=== PATIENT | male | born 1950 | race Caucasian/White ===

== ENCOUNTER → 2023-07-03 07:50 | Outpatient (REF) | payer OTHER, SELFPAY | LOC: DHSLP 07:50 | PROVIDERS: ATTENDING PHYSICIAN Internal Medicine Critical Care Medicine; FAMILY PHYSICIAN Internal Medicine | DX: G47.33 Obstructive sleep apnea (adult) (pediatric) (principal) | CPT/HCPCS: 95800 ==

== ENCOUNTER → 2024-01-03 08:04 | Outpatient (REF) | payer OTHER, SELFPAY | LOC: RAD 08:04 | PROVIDERS: FAMILY PHYSICIAN Internal Medicine | DX: G89.29 Other chronic pain (principal) | CPT/HCPCS: 76882 ==

== ENCOUNTER 2024-01-20 14:40 | Inpatient (IN) | payer OTHER, SELFPAY ==
[2024-01-20] VITALS (14 sets, daily range): BP systolic 108–127; BP diastolic 68–77; BMI 34.5; BMI 34.1
--- NOTE | 2024-01-20 10:39 | EDRN ---
the pt is currently on 6L NC sp02 96%, Dr. Bajwa wants the pt on Midflow, this RN tiger texted respiratory and notified them, will continue to monitor the pt closely
--- NOTE | 2024-01-20 10:40 | EDRN ---
per respiratory the pt does not need Midflow, this was communicated with Dr. Bajwa, will hold off on midflow for now, the pt is currently still on 6L NC, 96%, will continue to monitor the pt closely
[2024-01-20 10:51] LABS: ALT (SGPT) 31 U/L (0-50); AST (SGOT) 40 U/L (17-59); Albumin 3.7 g/dl (3.5-5.0); Alkaline Phosphatase 58 U/L (38-126); Blood Urea Nitrogen 21 mg/dl (9-20); Calcium 8.4 mg/dl (8.4-10.2); Carbon Dioxide 26 mmol/L (22-30); Chloride 102 mmol/L (98-107); Estimated Creatinine Clearance 57 ml/min; Glucose 107 mg/dl (70-99); Potassium 4.4 mmol/L (3.5-5.1); Sodium 136 mmol/L (135-145); Total Bilirubin 1.4 mg/dl (0.2-1.3); Total Protein 6.1 g/dl (6.3-8.2)
[2024-01-20 10:55] LABS: % Basophils 0.2 % (0-2); % Eosinophils 1.5 % (0-6); % Immature Granulocytes 1.4 % (0-0.5); % Lymphocytes 5.4 % (20.5-51.1); % Neutrophils 89.5 % (42.2-75.2); Absolute Eosinophils 0.1 10^3/uL (0-0.7); Absolute Immature Granulocytes 0.1 10^3/uL (0-0.05); Absolute Lymphocytes 0.5 10^3/uL (1.2-3.4); Absolute Monocytes 0.2 10^3/uL (0.1-0.6); Absolute Neutrophils 8.4 10^3/uL (1.4-6.5); Hematocrit 38.6 % (39.0-52.0); Hemoglobin 13.2 g/dL (13.0-18.0); Mean Corp Hgb Conc. 34.2 g/dL (33.0-37.0); Mean Corpuscular Volume 90.6 fL (80.0-94.0); Mean Platelet Volume 11.7 fL (7.4-10.4); Nucleated Red Blood Cells % 0 % (-); Platelet Count 132 10^3/uL (130-400); Red Blood Cell Count 4.26 10^6/uL (4.70-6.10); White Blood Cell Count 9.3 10^3/uL (4.8-10.8)
[2024-01-20 11:02] LABS: NT-proBNP 259 pg/ml; Troponin I 0.043 ng/ml
[2024-01-20 11:06] LABS: COVID-19 Antigen Positive (Negative)
--- NOTE | 2024-01-20 12:32 | ED.GENMED ---
History of Present Illness
General
Chief Complaint: Breathing Problem
Source: patient
Exam Limitations: none
Time Seen by Provider: 01/20/24 10:21
Nursing documentation reviewed up to this point in time: agreed with
History of Present Illness
History of Present Illness:
Patient presents to ED secondary to 10-day history of persistent cough, shortness of breath, and fatigue. Upon arrival, patient found to be febrile with hypoxia. Denies nausea, vomiting, or diarrhea. Denies rash. Denies headache. Denies loss of
appetite. Patient's spouse has had similar symptoms, but has improved. Of note, his symptoms started while he was vacationing in [place].
Past History
Past History
ED Past Medical History: Arrthythmia (Paroxysmal atrial fibrillation), Cancer (Basal cell skin cancer), CHF, COPD, GERD, HTN, Hypercholesterolemia and Other (Sarcoidosis, PE)
ED Past Surgical History: Orthopedic (Left knee); Negative Cardiac (Cardiac catheterization December 2014, nonocclusive CAD)
Social History
Tobacco: Former smoker
Alcohol: Daily
Drug: None
Personal:
Living: with family
Employment: Retired
Family History
Family History: Hypertension
Review of Systems
Review of Systems
Allergies reviewed?: Yes
All Other Systems: ROS reviewed and negative except as documented in HPI and ROS
Constitutional: Reports no symptoms
EENT: Reports no symptoms
Respiratory: Reports cough and trouble breathing
Cardiac: Reports no symptoms
ABD/GI: Reports no symptoms; Denies vomiting or diarrhea
Musculoskeletal: Reports no symptoms
Skin: Reports no symptoms
Neurological: Reports no symptoms
Phy Exam
Physical Exam
Physical Exam:
Physical Exam
General: mild distress, not acutely ill. febrile
Head: nc/at. eomi
Neck: supple. no meningeal signs.
Heart: s1/s2 regular rate and rhythm, no murmur. equal radial pulses.
Lungs: mild respiratory distress. diminished breath sounds bilaterally
Abdomen: normal bowel sounds. not tender.
Neuro: alert and oriented. no focal neurological deficits
Skin: no rash
Psychiatric: well kept. interactive and cooperative
Extremities: no edema. no calf tenderness.
Scores
Heart Failure Risk
Heart Failure Risk Score: Not Applicable
Course
Orders/Labs/Results
Orders:
Orders
01/20/24 10:14
Electrocardiogram (*1) Urgent
Reason for Study: Shortness of Breath
01/20/24 10:15
EKG- Treatment ONCE
01/20/24 10:21
Complete Blood Count/With Diff Urgent
Comprehensive Metabolic Panel Urgent
NT-proBNP Urgent
Troponin I Urgent
01/20/24 10:35
COVID-19 Antigen Urgent
Source: Nasal Swab
CR Chest Portable - 1 View Urgent
Comment:
Reason For Exam: sob/hypoxia
Reason Study Needs to be Portable: Patient Unstable
01/20/24 12:30
Add On- LAB Urgent
Tests Added?: Procalcitonin
01/20/24 12:44
Dexamethasone Pf [Decadron] 10 mg .ROUTE .STK-MED ONE
01/20/24 12:49
Dexamethasone Sod Phosphate [Decadron] 6 mg IV NOW STA
01/20/24 12:52
Procalcitonin Routine
Comment: NEEDS TO BE COLLEDTED
01/20/24 14:15
Admit/Transfer Patient As Directed
Co-Sign Provider:
Level of Care: Inpatient admission
Assign to:: Telemetry
Physician / Group: lamont mazariegos
Diagnosis: hypoxic resp failure 2/2 covid 19, bart/volume depletion
Reason for Telemetry: Arrhythmia
Date to Stop Telemetry: 01/23/24
Time to Stop Telemetry: 11:00
Reason for Hospitalization: hypoxic resp failure 2/2 covid 19, bart/volume depletion
Expected length of stay greater than two midnights?: Yes
ELOS- Estimated Length of Stay in days: 5
I certify the patient meets the requirements for IP care: Yes
Code Status As Directed
Resuscitation Status: Full Code
01/20/24 14:32
PULMONARY CONSULT Routine
Consulting Provider: Matt Segovia
Was physician already notified: Yes
Reason for consult: covid, hx copd sarcoidosis
01/20/24 Dinner
Cholesterol Lowering
At Your Request: Limited, Velvet Steamer Required
Does patient need a safe tray?: No
Cholesterol Lowering: Sodium, 2 Gram
Azithromycin 500 mg/250 ml [Zithromax Infusion] 500 mg in 250 ml IV Q24H
CefTRIAXone [Rocephin] 1,000 mg IV Q24H
01/20/24 15:06
Venous Blood Gas Urgent
%Oxygen/Room Air: 6 liters
01/20/24 16:39
Electrocardiogram (*1) Q6H
Reason for Study: Abnormal EKG
Comment: to be done with each troponin
0.9% Sodium Chloride 1000 ml [Nss] 1,000 ml IV 60 mls/hr
Acetaminophen [Tylenol] 650 mg PO Q4HPRN PRN
Albuterol [ProAIR HFA INHALER] 2 puff INH R Q4HPRN PRN
01/20/24 16:39
VTE Contraindication Routine
VTE Mechanical Device Contraindication: Medical Contraindication
Pharmocologic Contraindication: Medical Contraindication
Comment: pt on xarelto
Activity As Directed
Activity Level: Out of Bed-Early Mobility
Intake/ Output As Directed
Frequency: Per unit guidelines
Precautions As Directed
Type of Precautions: Droplet
Contact
Vital Signs As Directed
Frequency: Per unit guidelines
Weight As Directed
Frequency: Once
Comment: on admission
O2 Therapy [RESP] Routine
Nasal Cannula Liter Flow: 6 LPM
Titrate/Wean O2 to maintain O2 sat greater than (%): 92
Special Instructions: nasal cannula oxygen to maintain O2 saturation as noted above. then wean as tolerated.
Do NOT humidify nasal cannula O2
Pulse Ox/cont/shift [RESP] Routine
Quantity: 1
Special Instructions: continuous pulse oximetry
Ot Eval And Treat Routine
Pt Eval And Treat Routine
Activity Level: With Assistance
01/20/24 16:52
Troponin I Q6H
Comment: obtain ECG with each troponin
01/20/24 17:04
Artificial Tears (Pf) [Refresh Eye Drops (Pf)] 1 drops BOTH EYES Q6HPRN PRN
01/20/24 20:00
Carvedilol [Coreg] 6.25 mg PO BID
Sacubitril 24/Valsartan 26 [Entresto 24 mg/26 mg] 1 tab PO BID
01/20/24 22:00
Rivaroxaban [Xarelto] 20 mg PO HS
01/21/24 00:00
Dexamethasone Sod Phosphate [Decadron] 6 mg IV Q12H
01/21/24 06:00
Cardiovascular Evaluation IN AM
Complete Blood Count/With Diff IN AM
Comprehensive Metabolic Panel IN AM
01/21/24 08:00
Amiodarone [Pacerone] 200 mg PO DAILY
Atorvastatin [Lipitor] 10 mg PO DAILY
Empagliflozin [Jardiance] 10 mg PO DAILY
Multivitamin [Theragran] 1 tablet PO DAILY
Vitamin B Complex with C [B COMPLEX w/VITAMIN C] 1 caplet PO DAILY
01/22/24 06:00
Complete Blood Count/With Diff IN AM
Comprehensive Metabolic Panel IN AM
01/23/24 06:00
Complete Blood Count/With Diff IN AM
Comprehensive Metabolic Panel IN AM
01/23/24 11:00
DC Protocol for Telemetry ONCE
01/24/24 06:00
Complete Blood Count/With Diff IN AM
Comprehensive Metabolic Panel IN AM
Abnormal Lab Results
01/20/24 01/20/24 01/20/24
10:21 10:35 12:52
RBC 4.26 L 10^6/uL
(4.70-6.10)
Hct 38.6 L %
(39.0-52.0)
RDW 16.0 H %
(11.5-14.5)
MPV 11.7 H fL
(7.4-10.4)
Abs Immat Gran (auto) 0.1 H 10^3/uL
(0-0.05)
Absolute Neuts (auto) 8.4 H 10^3/uL
(1.4-6.5)
Absolute Lymphs (auto) 0.5 L 10^3/uL
(1.2-3.4)
Immature Gran % 1.4 H %
(0-0.5)
Neutrophils % 89.5 H %
(42.2-75.2)
Lymphocytes % 5.4 L %
(20.5-51.1)
BUN 21 H mg/dl
(9-20)
Creatinine 1.4 H mg/dL
(0.7-1.3)
Glucose 107 H mg/dl
(70-99)
Total Bilirubin 1.4 H mg/dl
(0.2-1.3)
Troponin I 0.043 H* ng/ml
Total Protein 6.1 L g/dl
(6.3-8.2)
Procalcitonin 0.69 H ng/ml
(0.0-0.25)
SARS-CoV-2 Antigen Positive A
(Negative)
01/20/24 10:21
01/20/24 10:21
Vital Signs
Initial and Last Documented VS:
Initial Vital Signs
Temp Pulse Resp BP Pulse Ox
101.2 F H 77 18 108/72 85
01/20/24 10:02 01/20/24 10:02 01/20/24 10:02 01/20/24 10:02 01/20/24 10:02
Last Documented Vital Signs
Temp Pulse Resp BP Pulse Ox
98.5 F 75 20 122/68 93
01/20/24 16:54 01/20/24 16:54 01/20/24 16:54 01/20/24 16:54 01/20/24 16:54
MDM/Problems Addressed
MDM/Problems Addressed:
Patient with hypoxia, likely secondary to COVID infection. Chest x-ray suggestive of bilateral pneumonia, likely viral. Procalcitonin pending.
Initial hypoxia improved with 6 L of oxygen via nasal cannula.
*Critical Care Note
Total Time (30-74mins, 75-104mins- exclusive of procedures): Not Applicable
ED Attending Note
-
Portions of this chart may have been created with voice recognition software.� Occasional wrong word or��sound alike� substitutions may have occurred due to the inherent limitations of voice recognition software.
Discharge Plan
Departure
Patient Disposition: Admit
Date of Disposition: 01/20/24
Time of Disposition: 12:36
Admit to: Telemetry
Presentation/result/management discussed w/ accepting MD/DO: Hospitalist
Discharge Problem:
Hypoxia, COVID-19
Interventions
Interventions:
*Risk Screen - Suicide Last Done: 01/20/24 10:02
*General Assessment Last Done: 01/20/24 10:02
*Neglect/Abuse Screening Last Done: 01/20/24 10:02
ED- Fall Risk Assessment Last Done: 01/20/24 10:23
*ED COVID-19 Vaccine History Last Done: 01/20/24 10:02
*Nursing Disposition Last Done: 01/20/24 16:31
ED- Cardiac Assessment Last Done: 01/20/24 10:23
ED- Pulmonary Assessment Last Done: 01/20/24 10:23
Discharge Date and Time
Discharge Date/Time: 01/20/24 16:31
[2024-01-20] MEDS: DECADRON 6 MG IV ×2 (12:52→23:00)
--- NOTE | 2024-01-20 13:39 | HPS.HSE ---
Family Physician
-
Family Physician: Doyle Avila
Chief Complaint
-
Hypoxia, cough, shortness breath, sore throat, runny nose, fatigue, fever
History of Present Illness
73-year-old male complaining of 11-12-day history of cough, shortness of breath, sore throat, and runny nose fatigue. He reports he flew to [place] on 01/06/2024 got back on 01/19/2024 he feels at least 2 to 3 days into his trip he started with a sore
throat that progressed to cough, wheezing and shortness of breath. He was not seen in any hospital or clinic while abroad. When at home he has felt worse with increased shortness of breath and wheezing. He is on chronic prednisone 40 mg for
cardiac and pulmonary sarcoidosis. He does not normally require oxygen. He was noted to be febrile 101.2F and hypoxic 85% on room air on arrival in the ER. He is currently requiring 6 L nasal cannula with O2 sat of 93%. He denies headache, chest
pain, palpitations, abdominal pain, nausea, vomiting, diarrhea, urinary symptoms.
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
April 2023, GERD, HLD, nonocclusive CAD December 2014 cardiac cath, basal cell skin CA, daily alcohol use
Medical History
Past Medical History
Past Medical History: Reports CAD (Nonocclusive coronary artery disease by catheterization on 01/12/2015. ), CHF, COPD, HTN, Hypercholesterolemia and Other
Additional Past Medical History:
COPD
former smoker
sarcoidosis
DVT/PE-patient on Xarelto
daily alcohol use
Paroxysmal A-fib
HTN
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
CHF/ nonischemic cardiomyopathy, EF 35-40% April 2023
nonocclusive CAD December 2014 cardiac cath
Mitral regurgitation, moderate to severe by echo in 12/2014.
GERD
HLD
basal cell skin CA
OA right knee
Past Surgical History: Reports Orthopedic (Right knee arthroscopy, partial medial meniscectomy, medial femoral chondroplasty.) and Other (Mediastinoscopy)
Social History
Tobacco: Former Smoker (quit 2014)
Alcohol: Daily (Patient reports he drinks 1 shot of whiskey 4 times a week)
Drug: None
Personal:
Living: With Family ()
Employment: Retired
Family History
Family History: Other (father-pacemaker/arryhthmia )
Allergies / Home Medications
Allergies reflects when Allergies were last updated in [facility].
Home Medications with original date entered in [facility]
Allergy/Medication List:
Allergies
Allergy/AdvReac Type Severity Reaction Status Date / Time
No Known Allergies Allergy Verified 01/20/24 10:07
Home Medications
carvedilol 6.25 mg tablet 6.25 mg PO BID ##60 01/14/15
atorvastatin 10 mg tablet 10 mg PO DAILY High Cholesterol 04/24/23
rivaroxaban 20 mg tablet (Xarelto) 20 mg PO HS Blood Clot Prevention/Tx 04/24/23
vitamin B complex 1 tab PO DAILY Supplement 04/24/23
empagliflozin 10 mg tablet (Jardiance) 10 mg PO DAILY HF #30 tabs 04/27/23
aflibercept 8 mg/0.07 mL intravitreal solution for injection (Eylea HD) 8 mg intravitreal Q4W 01/20/24
amiodarone 200 mg tablet (Pacerone) 200 mg PO DAILY VTach 01/20/24
peg 400-propylene glycol (PF) 0.4 %-0.3 % eye drops in a dropperette (Systane (PF)) 1 drp BOTH EYES Q6HPRN PRN dry eyes 01/20/24
prednisone 10 mg tablet 40 mg PO DAILY 01/20/24
sacubitril 24 mg-valsartan 26 mg tablet (Entresto) 1 tab PO BID 01/20/24
spironolactone 25 mg tablet 12.5 mg PO DAILY 01/20/24
sulfamethoxazole 400 mg-trimethoprim 80 mg tablet (Bactrim) 1 tab PO DAILY 01/20/24
therapeutic multivitamin 1 tab PO DAILY 01/20/24
Review of Systems
-
History Source: Patient and Family ( at bedside)
A 12 point ROS was completed and negative except as noted: Yes
Constitutional: Reports Fever and Fatigue; Denies Chills
EENT: Reports Sore Throat; Denies Runny Nose
Respiratory: Reports Cough and Trouble Breathing (Wheezing)
Cardiac: Denies Chest Pain, Diaphoresis, Palpitations or Syncope
Abdomen/GI: Denies Abdominal Pain, Nausea, Vomiting, Diarrhea, Constipated, Bloody Stools or Black Stools
: Denies Dysuria, Frequency, Flank Pain, Incontinence, Difficulty Voiding or Urgency
Musculoskeletal: Denies Joint Pain or Edema
Skin: Denies Itching or Rash
Neurological: Denies Dizzy, Headache or Weakness
Endocrine: Reports No Symptoms
Hematologic/Lymphatic: Reports No Symptoms
Psych: Reports Calm
Physical Exam
Vital Signs
Vital Signs
Temp Pulse Resp BP Pulse Ox
98.2 F 72 25 113/74 93
01/20/24 12:36 01/20/24 12:36 01/20/24 12:36 01/20/24 12:36 01/20/24 12:36
Physical Exam
General: Comfortable, Conversant, Fever and Chills; No Pain
HEENT: NormoCephalic, Anicteric, PERRLA, No Ptosis, Neck Nontender and Oxygen (6 L nasal cannula)
Respiratory: Wheezes (Scattered throughout both lung floyd); No Rales or Rhonchi
Cardiac: S1/S2 and Regular Rhythm; No Murmur, Rub, Gallop or Peripheral Edema
Breast: Deferred by me
GI: Soft, Non Tender, Non Distended, Normal Bowel Sounds and No Hepatosplenomegaly
Rectal: Deferred by Provider
Genito-urinary: Deferred by me
Musculoskeletal: No Clubbing, No Cyanosis and No Edema
Skin: Warm and Dry; No Rash or Jaundice
Neuro: AO x 3, No Motor Deficits, Nonfocal/grossly intact, Cranial Nerves Intact and No Sensory Deficits; No Slurred Speech, Facial Droop or Tremors
Psych: Calm
Laboratory Results
-
01/20/24 10:21
01/20/24 10:21
Laboratory Results
Total Bilirubin 1.4 mg/dl (0.2-1.3) H 01/20/24 10:21
AST 40 U/L (17-59) 01/20/24 10:21
ALT 31 U/L (0-50) 01/20/24 10:21
Alkaline Phosphatase 58 U/L (38-126) 01/20/24 10:21
Troponin I 0.043 ng/ml H* 01/20/24 10:21
Impression/Plan
-
Impression/plan:
Admit to Telemetry
#Acute hypoxic respiratory failure 2/2 COVID-19 infection in steroid-dependent patient with hx Sarcoidosis with concern for underlying Bibasilar pneumonia
#Hx pulmonary sarcoidosis/cardiac sarcoidosis
Patient with 11-12-day symptoms of shortness of breath, cough and fatigue,Fever
85% Ra, 93% 6 liters , temp 101.2F
COVID-positive in the ER
Pro-Aldo 0.69-given elevation will cover for possible underlying pneumonia
-Not remdesivir candidate
-Will give IV Decadron 6 mg q12 -patient takes 40 mg prednisone daily chronic since April 2023
-Iv Rocephin, zithromax
- check VBG on current 6 liters
- tylenol as needed fever
-Consult Pulmonary
CXR: Bibasilar pneumonia
#COPD Hx history steroid dependence
#Former smoker quit 2014
#Sarcoidosis hx pulmonary/cardiac
-Patient takes 40 mg prednisone daily since April 2023
-Patient on chronic Bactrim 1 tab daily prophylaxis will hold as we are giving Rocephin and Zithromax
#EMEKA likely secondary to febrile illness/diuretics
Creat 1.4 baseline appears 1.1
-IV NSS 60 cc an hour x 1 L
- follow BMP
#Acute on Chronic troponin elevation
-No current chest pain
-Troponin 0.043 will trend prior as high as 0.159 04/25/2023
#ICD implant April 27, 2023-[employer]
#nonischemic cardiomyopathy, EF 35-40% April 2023
#Chronic diastolic CHF
-I/O, daily weights
-HOLD spironolactone 12.5 mg daily due to EMEKA
-cont Entresto 1 tab twice daily, Jardiance 10 mg daily
#Prior Daily alcohol use
-Patient used to drink 4 martinis a day April 2023
-Now drinks 1 shot of whiskey 4 days a week last drink was 01/16/2024
#DVT/PE hx 2014 provoked after prolonged hospital stay
-patient on Xarelto
#HTN-benign
bp 113/74
-Continue carvedilol 6.25 mg twice daily
#Paroxysmal A-fib
-Continue Xarelto 20 mg at bedtime, amiodarone 200 mg daily, carvedilol 6.25 mg twice daily with hold parameters
#Monomorphic VT required cardioversion X 1 April 26, 2023
-Continue amiodarone 200 mg daily
#Nonocclusive CAD December 2014 cardiac cath
#Mitral regurgitation, moderate to severe by echo in 12/2014
#GERD
-No PPI listed
# HLD
-Continue atorvastatin 10 mg daily
#Obesity due to excess calorie consumption�BMI 34.5
-Affects all aspects of care
-Weight loss recommended, low-fat diet
Other PMH:
Basal cell skin CA
OA right knee
DVT prophylaxis
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
Full code
[2024-01-20 13:45] LABS: Procalcitonin 0.69 ng/ml (0.0-0.25)
[2024-01-20] MEDS: ROCEPHIN 1000 MG IV (15:00)
[2024-01-20] MEDS: ZITHROMAX INFUSION 250 IV (15:00)
[2024-01-20] MEDS: STERILE WATER FOR INJECTION 10 ML IV (15:00)
[2024-01-20 15:13] LABS: Venous Blood Gas B.E. -2.9 mmol/L (-4 to +4); Venous Blood Gas pCO2 38 mmHg (35-48); Venous Blood Gas pH 7.37 (7.32-7.43); Venous Blood Gas pO2 57 mmHg (30-50)
[2024-01-20 17:26] LABS: Troponin I 0.034 ng/ml
[2024-01-20] MEDS: NSS 1000 IV (17:42)
--- NOTE | 2024-01-20 18:19 | PTCARENOTE ---
received pt from ED via stretcher, able to walk from stretcher to bathroom then to bed, SOB on exertion, at bedside, vitals charted, oriented to his room. plan of care on going.
[2024-01-20] MEDS: ROBITUSSIN DM 5 ML PO (19:48)
[2024-01-20] MEDS: COREG 6.25 MG PO (19:49)
[2024-01-20] MEDS: SPIRIVA RESPIMAT 2.5 MCG 2 PUFF INH (19:49)
[2024-01-20] MEDS: ENTRESTO 24 MG/26 MG 1 TAB PO (19:49)
[2024-01-20] MEDS: ProAIR HFA INHALER 2 PUFF INH (19:50)
[2024-01-20] MEDS: XARELTO 20 MG PO (21:12)
[2024-01-21] VITALS (8 sets, daily range): BP systolic 106–130; BP diastolic 59–77; PULSE 64–99; O2SAT 92–97; BMI 33.9
[2024-01-21] MEDS: ROBITUSSIN DM 5 ML PO (03:15)
[2024-01-21 05:26] LABS: % Basophils 0.1 % (0-2); % Immature Granulocytes 1.5 % (0-0.5); % Monocytes 1.5 % (1.7-9.3); % Neutrophils 92.9 % (42.2-75.2); Absolute Immature Granulocytes 0.1 10^3/uL (0-0.05); Absolute Lymphocytes 0.3 10^3/uL (1.2-3.4); Absolute Monocytes 0.1 10^3/uL (0.1-0.6); Absolute Neutrophils 6.7 10^3/uL (1.4-6.5); Hematocrit 36.3 % (39.0-52.0); Hemoglobin 12.4 g/dL (13.0-18.0); Mean Corp Hgb Conc. 34.2 g/dL (33.0-37.0); Mean Corpuscular Hgb 30.7 pg (27.0-31.0); Mean Corpuscular Volume 89.9 fL (80.0-94.0); Mean Platelet Volume 11.6 fL (7.4-10.4); Nucleated Red Blood Cells % 0 % (-); Platelet Count 143 10^3/uL (130-400); Red Blood Cell Count 4.04 10^6/uL (4.70-6.10); Red Cell Dist. Width 15.9 % (11.5-14.5); White Blood Cell Count 7.3 10^3/uL (4.8-10.8)
[2024-01-21 05:41] LABS: ALT (SGPT) 28 U/L (0-50); AST (SGOT) 32 U/L (17-59); Albumin 3.3 g/dl (3.5-5.0); Alkaline Phosphatase 57 U/L (38-126); Blood Urea Nitrogen 25 mg/dl (9-20); Calcium 8.2 mg/dl (8.4-10.2); Carbon Dioxide 22 mmol/L (22-30); Chloride 108 mmol/L (98-107); Estimated Creatinine Clearance 72 ml/min; Glucose 159 mg/dl (70-99); HDL Cholesterol 54 mg/dl; LDL Cholesterol, Calculated 111 mg/dl; Potassium 4.4 mmol/L (3.5-5.1); Sodium 137 mmol/L (135-145); Total Bilirubin 0.9 mg/dl (0.2-1.3); Total Cholesterol 182 mg/dl (50-199); Total Protein 5.7 g/dl (6.3-8.2); Triglyceride 87 mg/dl (10-149); Very Low Density Lipoprotein 17 mg/dl (0-30); eGFR > 60.00
[2024-01-21] MEDS: ProAIR HFA INHALER 2 PUFF INH ×4 (07:28→20:58)
[2024-01-21] MEDS: SPIRIVA RESPIMAT 2.5 MCG 2 PUFF INH (07:29)
[2024-01-21] MEDS: ENTRESTO 24 MG/26 MG 1 TAB PO ×2 (08:53→19:48)
[2024-01-21] MEDS: B COMPLEX w/VITAMIN C 1 CAPLET PO (08:53)
[2024-01-21] MEDS: PACERONE 200 MG PO (08:54)
[2024-01-21] MEDS: JARDIANCE 10 MG PO (08:54)
[2024-01-21] MEDS: COREG 6.25 MG PO ×2 (08:54→19:48)
[2024-01-21] MEDS: THERAGRAN 1 TABLET PO (08:54)
[2024-01-21] MEDS: LIPITOR 10 MG PO (08:54)
--- NOTE | 2024-01-21 09:17 | CON.PUL ---
Consultation
Consultation Request
Date/Time Consultation Requested: 01/21/2024-8 AM
Date/Time Consultation Performed: 01/21/2024-10 AM
Requesting Provider: Hospitalist
Performing Provider: Dr. Segovia
Reason for Consultation: Pneumonia/shortness of breath
Medical History
-
Chief Complaint: Shortness of breath
History of Present Illness:
73-year-old male with history of COPD, sarcoidosis, NITA, CAD, nonischemic cardiomyopathy and arrhythmias who recently returned from extensive trip to [place] complaining of 12-day history of cough, shortness of breath, sore throat and runny nose last
received booster Februaryovid (5 shots total) noted to have pneumonia, covid positive and pulmonary consulted for hypoxemia/pneumonia/ covid 01/21/2024. He is feeling somewhat improved on oxygen. He still has some chest congestion, mostly
nonproductive cough and denies shortness of breath at rest but has dyspnea on exertion. Denies any chest pain, mopped assist, productive cough, abdominal pain, nausea, vomiting, weakness, or increased lower extremity swelling.
Past Medical History
Past Medical History: None (COPD. NITA. Obesity. Former smoker quit 2014. Sarcoidosis-cardiac. Hypertension. Hyperlipidemia. 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 PAF. 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 Nonischemic CM-EF 35%/ICD. Diastolic
CHF. CAD-nonocclusive 2014. Moderate MR. GERD. Basal cell skin CA.)
Past Surgical History: None (Left knee arthroscopy 2010. Mediastinal Skippy. Right knee surgery 2017. Basal cell left ear 2020. Cataract 2021. Melanoma right wrist 2023)
Social History
Tobacco: Former Smoker ([id number] quit 2014)
Alcohol: Daily (1 shot whiskey 4 times weekly)
Drug: None
Personal:
Living: With Family
Occupational Exposures: No known asbestos exposure
Environmental Exposures: No known tuberculosis exposure
Family History
Family History: Other (Father-prostate cancer, bladder cancer and CAD. Mother-hypertension.)
Allergies / Home Medications
Allergies
Allergy/AdvReac Type Severity Reaction Status Date / Time
No Known Allergies Allergy Verified 01/20/24 10:07
Home Medications
�Medication �Instructions �Recorded �Confirmed �Last Taken �Type
carvedilol 6.25 mg tablet 6.25 mg PO BID ##60 01/14/15 01/20/24 01/20/24 Rx
atorvastatin 10 mg tablet 10 mg PO DAILY High Cholesterol 04/24/23 01/20/24 01/20/24 History
rivaroxaban 20 mg tablet (Xarelto) 20 mg PO HS Blood Clot 04/24/23 01/20/24 01/19/24 History
Prevention/Tx
vitamin B complex 1 tab PO DAILY Supplement 04/24/23 01/20/24 01/20/24 History
empagliflozin 10 mg tablet 10 mg PO DAILY HF #30 tabs 04/27/23 01/20/24 01/20/24 Rx
(Jardiance)
aflibercept 8 mg/0.07 mL 8 mg intravitreal Q4W Eye Condition 01/20/24 01/20/24 01/02/24 History
intravitreal solution for
injection (E[facility])
amiodarone 200 mg tablet (Pacerone) 200 mg PO DAILY VTach 01/20/24 01/20/24 01/20/24 History
peg 400-propylene glycol (PF) 0.4 1 drp BOTH EYES Q6HPRN PRN dry eyes 01/20/24 01/20/24 Unknown History
%-0.3 % eye drops in a dropperette
(Systane (PF))
prednisone 10 mg tablet 40 mg PO DAILY Anti-Inflammatory 01/20/24 01/20/24 01/20/24 History
sacubitril 24 mg-valsartan 26 mg 1 tab PO BID Heart Failure 01/20/24 01/20/24 01/20/24 History
tablet (Entresto)
spironolactone 25 mg tablet 12.5 mg PO DAILY Blood Pressure 07/01/20/24 01/19/24 History
sulfamethoxazole 400 1 tab PO DAILY Infection 01/20/24 01/20/24 01/20/24 History
mg-trimethoprim 80 mg tablet
(Bactrim)
therapeutic multivitamin 1 tab PO DAILY Supplement 01/20/24 01/20/24 01/20/24 History
Review of Systems
-
Unable to Obtain full review of systems at this time due to: Other (Per HPI)
Vitals / Labs / Diagnostic Testing
Vital Signs
Temp Pulse Resp BP Pulse Ox
97.9 F 63 18 123/68 91
01/21/24 07:58 01/21/24 07:58 01/21/24 07:58 01/21/24 07:58 01/21/24 07:58
Lab Data
01/21/24 04:50
01/21/24 04:50
Diagnostic Testing:
Physical Exam
-
Exam:
Well-nourished and well-developed in no apparent distress
HEENT-atraumatic, normocephalic, thick neck
Neck-supple, no JVD, no bruit
Heart-regular rate and rhythm-no murmurs, rubs or gallops
Chest with crackles at both bases, few rhonchi, and no wheezes
Abdomen-soft, nontender, nondistended, no hepatosplenomegaly
Extremities-no cyanosis, clubbing, edema and good peripheral pulses
Integument-intact, no rashes, lesions or ecchymosis
Neurology-alert and oriented, nonfocal motor and sensory exam
Assessment
-
73-year-old male with history of COPD, sarcoidosis, NITA, CAD, nonischemic cardiomyopathy and arrhythmias who recently returned from extensive trip to [place] complaining of 12-day history of cough, shortness of breath, sore throat and runny nose last
received booster Februaryovid (5 shots total) noted to have pneumonia, covid positive and pulmonary consulted for hypoxemia/pneumonia/ covid 01/21/2024.
Respiratory failure-acute hypoxemic due to community-acquired pneumonia
Covid positive-symptom onset nearly 2 weeks [employer]
Community-acquired pneumonia
COPD with mild acute exacerbation
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
Troponin elevation-0.043
Mild uhtviu-ghlszvhllx-yhjazbwotq 12.4
Hyperglycemia
Conditions present prior to admission:
COPD.
Former smoker quit 2014.
Pulmonary nodule-2 mm right upper lobe stable 2022
NITA.
Obesity.
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
Hypertension.
Hyperlipidemia.
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
PAF.
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
Chronic amiodarone-100 mg daily
Nonischemic CM-EF 35%/ICD.
Diastolic CHF.
CAD-nonocclusive 2014.
Moderate MR.
GERD.
Basal cell skin CA.
Left knee arthroscopy 2010. Mediastinal Skippy. Right knee surgery 2017. Basal cell left ear 2020. Cataract 2021. Melanoma right wrist 2023
Plan
Respiratory decompensation related to oqxxjjifq-eaiehayrn-fzuuhdgw-recent travel history and minor contributions from underlying COPD and covid infection in this patient who has had 5 previous vaccinations though he is immunocompromised on chronic
prednisone which puts him at risk for covid complications
Chest radiographs, CT chest, PET scan, echocardiogram, cardiac MRI, sleep study, and pulmonary functions are summarized below
Supplemental oxygen as needed-currently on 6 L-not on home oxygen
Assess discharge supplemental oxygen needs
Incentive spirometry
Acapella
Mucolytic's
Nebulizers if needed
Decadron 6 mg IV twice daily
Currently on Spiriva and albuterol
Follow chest x-ray
Check cultures
Empiric antibiotics to cover community-acquired pneumonia-ceftriaxone and azithromycin initiated
Covid positive
Isolation per protocol
Negative pressure room
Not a candidate for antivirals as symptom onset-out of window
Decadron
Patient on chronic prednisone for cardiac sarcoid and eventually will be weaned on prednisone to previous stable doses with wean per cardiology
Patient has cardiac sarcoid on chronic prednisone followed by Dr. Lamas locally and was to see [facility] cardiac sarcoid specialist
Prednisone taper per cardiology
Chronic amiodarone 200 mg daily
DVT prophylaxis-on Xarelto
Nutrition
Early mobilization
Reviewed with nursing
Follow-up by Dr. Segovia-has NITA, aware of associations and treatment options, considering pursuing CPAP, due for yearly low-dose lung cancer screening CT chest 03/2024, prednisone per cardiology-follows Dr. Lamas and reportedly to see cardiac
sarcoid specialist at [facility] for cardiac sarcoid-no obvious pulmonary involvement at this time
Patient was last seen by Dr. Segovia 09/06/2023 and has a follow-up appointment 01/26/2024 at 10:15 AM
Diagnostic data:
Chest x-ray 04/26/23-left chest wall defibrillator placed with lead tips in the right atrium and right ventricle������
Chest x-ray 01/20/2024-bibasilar pneumonia
CT chest. Afr-usgf-4-2020 -no evidence of pulmonary malignancy. Stable 2.8 cm subpleural lipoma at the posterior left base. Stable large 2 cm pre tracheal lymph node at the left koko. Minimal emphysematous changes left base. Atherosclerosis�������
CT pclec-coe-hxix-03-30-2022- Stability of 2 mm right upper lobe nodule. Stable since 2014. Mild subpleural parenchymal scarring with emphysematous change in the upper lateral aspect of the left lower lobe as well on the lateral basilar portion of
the left lower lobe.�������
CT hgjnm-rku-ysiq 04/20/23-mild central lobular emphysema, 2 mm solid subpleural nodule right upper lobe stable.�������
CT chest 04/25/23-no evidence for pulmonary embolism, mild bibasilar segmental atelectasis, mediastinal and bilateral hilar lymphadenopathy, some of which are partially calcified. These are unchanged compared to recent CT chest 04/20/23 and only
minimally increased compared to 2015, prominence of main pulmonary trunk suggesting pulmonary artery hypertension, 1.3 cm left thyroid nodule unchanged 2014�������
[facility]increased metabolic activity at the left cardiac border/left ventricle, indicating active disease-sarcoidosis, which correlates with a cardiac MRI findings, hilar and mediastinal lymphadenopathy with increased
metabolic activity indicates active disease as well, cardiac SUV ranging 2.8-3/3, mediastinal, hilar SUV ranging 2.3-3.16 and right hilar lymph node, SUV 3.06, no abnormal pulmonary uptake.
Lower extremity ultrasound 01/03/2024-very small subcutaneous edema right ankle, severe tendinosis right peroneal longus and brevis tendons
Echocardiogram-2016- EF normalized from 20 to 55 %�������
Echocardiogram 04/25/23-EF 35-40%, mild global hypokinesis, PA systolic -, compared to 2022, LV is dilated and increased from 5.8-7.2 cm and the EF was decreased from 45% to 35-40%�������
Cardiac MRI 04/26/23-severe thinning akinesis and transmural enhancement of the inferolateral, inferior whitten consistent with chronic myocardial infarction, global left ventricular hypokinesis�������
Cardiac catheterization 04/25/23-nonobstructive coronary artery disease, dilated cardiomyopathy with severe posterior basilar hypokinesis and global hypokinesis.
HST 07/03/23-AHI-10, desaturation josselin 84%, 5.3 minutes spent less than 80% saturation.
Spirometry-2014- FEV1 2.5, 3-73%,FVC 3.61,83 9 BD response Ratio 70�������
PFT-2018- FEV1 3.1, 1-99%,FVC 4.66,110 TLC 103 DLOC 68�������
[id number]- FEV1 3.02-100%, FVC 4.44, 108 ratio 63 Fef 25-75 1.11, 48 33 BD response�������
[id number]- PFT- FEV1 2.73-92%,FVC 4.60, 113, ratio 57 TLC 102 DLCO 85�������
Spirometry 06/12/23-FEV1 2.48-85%, FVC 3.36-83%, no significant BD response. Mild restriction.�������
PFT 07/25/23-FEV1 2.57-87%, FVC 3.84-95%, no significant BD response, TLC 92%, RV 70%, DLCO 69%, DLCO/VA 77%. Mild obstruction and mild reduction in diffusing capacity.�������
Spirometry 09/06/23-FEV1 2.27-70%, FVC 3.93-98%, no significant BD response. Mild obstruction
Data Reviewed
-
PFT: Report reviewed by me
EKG: Report reviewed by me
Radiology: Image personally visualized and interpreted and Report reviewed by me
CT Scan: Report reviewed by me
Medical Tests (Nuc Med, Echo etc): Image personally visualized and interpreted
Labs: Labs reviewed by me
Old Records: Reviewed
Total Time Spent with Patient (in minutes): 65
--- NOTE | 2024-01-21 09:31 | W.PN.HOSP.TC ---
Today's Communication/Plan
-
Continue IV steroid, antibiotics, bronchodilators
Start incentive spirometry
Wean supplemental oxygen as possible
Assessment / Plan
Assessment / Plan
#Acute hypoxemic respiratory failure
#COVID-19 infection -- symptoms 8 days ago while in [place]
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
#H/O COPD -- Gold class A, no exacerbations or hospital stays in 9 years
-Not candidate for Paxlovid or other antiviral due to timing of symptoms
-Required 6 L in the ED, currently on 5 L O2 with SpO2 in the mid 90s
-He does have bibasilar crackles, no signs of hypervolemia, possibly atelectasis
-Receiving empiric IV antibiotics due to mildly elevated Pro-Aldo on admission
-Pulmonology consulted, recommended ICS
Plan
-Continue IV dexamethasone twice daily for COVID
-Continue with incentive spirometry for atelectasis
-Continue with IV antibiotics for today, low threshold to DC
-Continue with bronchodilator MDI scheduled
-Wean O2 as able, SpO2 goal 88 to 94%
#Chronic HFrEF -- infiltrative cardiomyopathy, EF 35 to 40%
#VT S/P AICD -- 2022 [employer]
#Cardiac sarcoidosis
#Secondary mitral regurgitation
-On GDMT with carvedilol, SGLT2i, Entresto, spironolactone
-Seems fairly well compensated, not on standing diuretic regimen
-Appears euvolemic as of now, low suspicion for decompensated heart failure
#Paroxysmal AF -- anticoagulated with Xarelto
-Home regimen includes carvedilol, amiodarone, Xarelto
-No known history of PVI or other ablations
-Heart rate has been WNL, seems NSR
#Acute on chronic troponinemia
#Nonocclusive CAD
-Chronic troponin elevation context of myocardial infiltrative disease
-Baseline troponin likely near 0.04 though has been higher
-No chest pain, ECG without ST deviation, low suspicion for ACS on troponin trend
#H/O DVT/PE -- provoked on long hospital stay, maintained on Xarelto
# Prerenal EMEKA -- resolved; in setting of diuretics, illness; improved with diuretics held
#Obesity -- BMI 34.5
DVT prophylaxis: Home Xarelto
Diet: House
CODE STATUS: Full code
Anticipated Discharge: 24 - 48 hours
Subjective/Interval History
-
Date of Service: January 21, 2024
No acute events. Oxygen status transiently improved yesterday and was down to 2 L though back on 6 L as of this morning. Down to 5 L at time of my evaluation. Incentive spirometry started per pulm recommendations.
He states he feels better today. Denies dyspnea, chest pain, fevers or chills, nausea/vomiting/diarrhea, paresthesias, urinary issues.
Objective Data
-
Labs:
Laboratory Results
01/21/24
04:50
WBC 7.3
Hgb 12.4 L
Hct 36.3 L
Plt Count 143
Sodium 137
Potassium 4.4
Chloride 108 H
Carbon Dioxide 22
BUN 25 H
Creatinine 1.1
Glucose 159 H
Calcium 8.2 L
Total Bilirubin 0.9
AST 32
ALT 28
Alkaline Phosphatase 57
Vital Signs:
Vital Signs
Temp Pulse Resp BP Pulse Ox
97.9 F 63 18 123/68 91
01/21/24 07:58 01/21/24 07:58 01/21/24 07:58 01/21/24 07:58 01/21/24 07:58
I&O
01/20/24 01/21/24 01/22/24
06:59 06:59 06:59
Intake Total 960 / 960
Output Total 1900 / 1900
Balance -940 / -940
Review of Systems
-
History Source: Patient
All other systems: Reviewed and negative
Physical Exam
-
General: No Apparent Distress, Comfortable and Conversant
HEENT: Normocephalic, Atraumatic, Moist Mucous Membranes and Anicteric
Respiratory: Rales (Bibasilar Rales, CTA otherwise) and Non Labored Respirations; Negative Wheezes, Rhonchi or Accessory Resp Muscle Use
Cardiac: Regular Rhythm and S1/S2; Negative Murmur, Rub, JVD or Gallop
GI: Soft, Nontender, Nondistended and Normal Bowel Sounds
Musculoskeletal: No Clubbing, No Cyanosis and No Edema
Skin: Warm and Dry; Negative Rash or Jaundice
Neuro: AO x 3, Nonfocal/Grossly Intact and Central Nerve's Intact
Data Reviewed
-
Labs: Labs Reviewed by me
[2024-01-21] MEDS: DECADRON 6 MG IV ×2 (12:12→23:07)
[2024-01-21] MEDS: ROCEPHIN 1000 MG IV (15:30)
[2024-01-21] MEDS: STERILE WATER FOR INJECTION 10 ML IV (15:30)
[2024-01-21] MEDS: LASIX 20 MG IV (15:33)
[2024-01-21] MEDS: ZITHROMAX INFUSION 250 IV (16:28)
[2024-01-21] MEDS: XARELTO 20 MG PO (21:26)
[2024-01-22] VITALS (14 sets, daily range): BP systolic 103–144; BP diastolic 66–91; BMI 33.2; BMI 33.5
--- NOTE | 2024-01-22 07:25 | W.PN.HOSP.TC ---
Today's Communication/Plan
-
Significantly worsened hypoxia in the past 24 hours
Given cardiac history and the significant amount of oxygen needed now, transfer to ICU for closer monitoring
Continue steroids, antibiotics
Appreciate pulm, cardio, manager retention and infectious disease
Assessment / Plan
Assessment / Plan
Physical Exam
General: Not in acute distress
HEENT: Normocephalic
Respiratory: Rales (Bibasilar Rales, CTA otherwise)
Cardiac: Regular Rhythm and S1/S2
GI: Soft, Nontender, Nondistended and Normal Bowel Sounds
Musculoskeletal: No Cyanosis and No Edema
Skin: Warm and Dry
Neuro: AO x 3, Nonfocal/Grossly Intact and Central Nerve's Intact

73-year-old male with cardiopulmonary sarcoidosis (chronic prednisone), VT s/p AICD, AF on Xarelto that presented with shortness of breath that occurred when he was vacationing in [place]. Symptoms started ~8 days prior to presentation,
progressively worsened and developed shortness of breath prior to admission. Tested positive for COVID, started on IV steroids twice daily with bronchodilator MDI. Manager Of Distribution is following, started on incentive spirometry. Oxygen status has
been volatile, was down to 2 L then up to 6, then up to 10. Got 1 dose of Lasix on 01/20 but not usually on loop diuretic doses
#Acute hypoxemic respiratory failure
#COVID-19 infection -- symptoms 8 days ago while in [place]
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
#H/O COPD -- Gold class A, no exacerbations or hospital stays in 9 years
-Not candidate for Paxlovid
-Required 6 L in the ED, now on 15 L midflow oxygen saturating in the low 90s --> transfer patient to ICU
-He does have bibasilar crackles, no signs of hypervolemia, possibly atelectasis
-Receiving empiric IV antibiotics due to mildly elevated Pro-Aldo on admission
-Pulmonology consulted, recommended ICS
-Continue IV dexamethasone twice daily for COVID
-Continue with incentive spirometry for atelectasis
-Continue with IV antibiotics
-Continue with bronchodilator MDI scheduled
-Wean O2 as able, SpO2 goal 88 to 94%
-Consulted Infectious Disease, evaluation and recommendations appreciated
-Consulted Cardiology given patient's significant cardiac history, COVID with significantly worsened hypoxia as of 01/22/24
-Repeat EKG, proBNP. Also check troponins and echocardiogram.
#Chronic HFrEF -- infiltrative cardiomyopathy, EF 35 to 40%
#VT S/P AICD -- 2022 [employer]
#Cardiac sarcoidosis
#Secondary mitral regurgitation
-On GDMT with carvedilol, SGLT2i, Entresto, spironolactone
-Seems fairly well compensated, not on standing diuretic regimen
-Appears euvolemic as of now, but will check echo given worsening hypoxia
#Paroxysmal AF -- anticoagulated with Xarelto
-Home regimen includes carvedilol, amiodarone, Xarelto
-No known history of PVI or other ablations
-Heart rate has been WNL, seems NSR
#Acute on chronic troponinemia
#Nonocclusive CAD
-Chronic troponin elevation context of myocardial infiltrative disease
-Baseline troponin likely near 0.04 though has been higher
-No chest pain, ECG without ST deviation, low suspicion for ACS on troponin trend
#H/O DVT/PE -- provoked on long hospital stay, maintained on Xarelto
# Prerenal EMEKA -- resolved; in setting of diuretics, illness; improved with diuretics held
#Obesity -- BMI 34.5
DVT prophylaxis: Home Xarelto
Diet: House
CODE STATUS: Full code
COVID and pneumonia, requiring 15 L of mid-flow oxygen, is a high-risk encounter.
Anticipated Discharge: > 48 hours
Subjective/Interval History
-
Date of Service: January 22, 2024
Patient was seen and examined. He is now on 15 liters of midflow oxygen. He denied any new symptoms, still with some shortness of breath.
Objective Data
-
Labs:
Laboratory Results
01/22/24
07:21
WBC Pending
Hgb Pending
Hct Pending
Plt Count Pending
Sodium Pending
Potassium Pending
Chloride Pending
Carbon Dioxide Pending
BUN Pending
Creatinine Pending
Glucose Pending
Calcium Pending
Total Bilirubin Pending
AST Pending
ALT Pending
Alkaline Phosphatase Pending
Vital Signs:
Vital Signs
Temp Pulse Resp BP Pulse Ox
97.5 F 65 20 128/68 93
01/22/24 03:22 01/22/24 03:22 01/22/24 03:22 01/22/24 03:22 01/22/24 03:22
I&O
01/21/24 01/22/24 01/23/24
06:59 06:59 06:59
Intake Total 960 / 960 1560 / 1560
Output Total 1900 / 1900 2100 / 2100
Balance -940 / -940 -540 / -540
[2024-01-22] MEDS: SPIRIVA RESPIMAT 2.5 MCG 2 PUFF INH (07:51)
[2024-01-22] MEDS: ProAIR HFA INHALER 2 PUFF INH ×4 (07:51→20:06)
[2024-01-22] MEDS: LIPITOR 10 MG PO (08:03)
[2024-01-22] MEDS: B COMPLEX w/VITAMIN C 1 CAPLET PO (08:04)
[2024-01-22] MEDS: THERAGRAN 1 TABLET PO (08:04)
[2024-01-22] MEDS: JARDIANCE 10 MG PO (08:05)
[2024-01-22] MEDS: COREG 6.25 MG PO ×2 (08:09→19:35)
[2024-01-22] MEDS: ENTRESTO 24 MG/26 MG 1 TAB PO ×2 (08:10→19:35)
[2024-01-22] MEDS: PACERONE 200 MG PO (08:10)
[2024-01-22 08:28] LABS: % Basophils 0.1 % (0-2); % Immature Granulocytes 1.2 % (0-0.5); % Lymphocytes 2.7 % (20.5-51.1); % Monocytes 1.9 % (1.7-9.3); % Neutrophils 94.1 % (42.2-75.2); Absolute Immature Granulocytes 0.2 10^3/uL (0-0.05); Absolute Lymphocytes 0.4 10^3/uL (1.2-3.4); Absolute Monocytes 0.3 10^3/uL (0.1-0.6); Absolute Neutrophils 13.8 10^3/uL (1.4-6.5); Hematocrit 38.4 % (39.0-52.0); Hemoglobin 13.1 g/dL (13.0-18.0); Mean Corp Hgb Conc. 34.1 g/dL (33.0-37.0); Mean Corpuscular Volume 90.8 fL (80.0-94.0); Mean Platelet Volume 11.2 fL (7.4-10.4); Nucleated Red Blood Cells % 0 % (-); Platelet Count 198 10^3/uL (130-400); Red Blood Cell Count 4.23 10^6/uL (4.70-6.10); Red Cell Dist. Width 15.7 % (11.5-14.5); White Blood Cell Count 14.7 10^3/uL (4.8-10.8)
[2024-01-22 08:42] LABS: ALT (SGPT) 28 U/L (0-50); AST (SGOT) 29 U/L (17-59); Albumin 3.6 g/dl (3.5-5.0); Alkaline Phosphatase 71 U/L (38-126); Blood Urea Nitrogen 33 mg/dl (9-20); Calcium 8.3 mg/dl (8.4-10.2); Carbon Dioxide 24 mmol/L (22-30); Chloride 106 mmol/L (98-107); Estimated Creatinine Clearance 65 ml/min; Glucose 134 mg/dl (70-99); Potassium 4.5 mmol/L (3.5-5.1); Sodium 139 mmol/L (135-145); Total Bilirubin 0.8 mg/dl (0.2-1.3); Total Protein 6.1 g/dl (6.3-8.2); eGFR > 60.00
--- NOTE | 2024-01-22 10:49 | CON.CAR ---
Addendum entered and electronically signed by Trev Fam MD 01/22/24 15:25:
Attending addendum: Patient seen and examined. PA note reviewed and findings confirmed by me. Briefly, this is a 73-year-old gentleman with medical history notable for systemic sarcoidosis with history of syncope secondary to ventricular
tachycardia and heart rate of 217. He required emergent cardioversion. He was referred for coronary angiography April 25, 2023 and found to have normal coronary arteries with an estimated ejection fraction of 30% with global hypokinesis and
posterior basal hypokinesis. Coronary angiography in December 2014 was also notable for normal coronary arteries. An ICD was implanted in April 2023 is episode of sustained ventricular tachycardia. A cardiac MRI was performed suggestive of LV
subendocardial enhancement in the inferior wall concerning for sarcoidosis. He follows with Dr. Ced Mora at the [facility] in their S[facility]. He was chronically maintained on prednisone with plans to slowly wean his
steroid. Unfortunately, when he was last seen by Dr. Mora his sarcoidosis was felt to be more active and his prednisone dose was actually increased. He is chronically maintained on appropriate medical therapy for LV dysfunction including
carvedilol 6.25 mg p.o. twice daily, Entresto 1 tablet p.o. twice daily, spironolactone 12.5 mg daily and empagliflozin 10 mg daily. He has a history of pulmonary embolism and is chronically maintained on oral anticoagulation with rivaroxaban.
Edgar now presents to [facility] and is found to be hypoxic and tested positive for COVID-19. Troponin level is undetectable and proBNP measures 369. His BUN is 33 with a creatinine of 1.2. Estimated CrCl was 65. Pro BNP was not too
elevated measuring 369. Intermittently, hypoxic when he takes O2 off
GEN: patient seen while having echocardiogram performed. He is AAO x 3 and conversant much to the lavelle of the bellows filler. No acute distress
HEENT: NC/AT, sclera are anicteric, hearing and nares are normal. N-95 mask
LUNGS: Clear anterolateral lung floyd. No wheezing
CV: Regular rate and rhythm. Normal S1/S2. No S3, No S4. Murmur: II/ apex
ABD : Soft, NT, ND, No HSM. Bowel sounds are present.
EXT: No CCE
NEURO: No focal neurologic deficits
IMPRESSION:
-Covid-19 / Hypoxemia / steroid dependent sarcoidosis
-Sarcoidosis on chronic steroid therapy
-Nonischemic cardiomyopathy
-History of sustained ventricular tachycardia
-Hx of PE x 2 on oral anticoagulation chronically
RECOMMENDATIONS:
-Will interrogate ICD as it has been some time since last interrogation
-Steroids as directed per Hospitalist and Pulmonary
-Nonischemic cardiomyopathy:
Continue Carvedilol and Entresto.
Continue jardiance
spironolactone 12.5 mg on hold.
He does not examine overtly volume overloaded. Can continue to hold for now
Echocardiogram results pending
-At some point will need to obtain PFT's given sarcoid and chronic steroid use and amiodarone
-Last TSH less than 1 year ago looked good.
Original Note:
Consultation
Consultation Request
Date/Time Consultation Requested: 01/22/2024
Date/Time Consultation Performed: 01/22/2024
Requesting Provider: Dr. Bose
Performing Provider: Jacqueline Rasmussen PA-C for Dr. Fam
Reason for Consultation: Hypoxemia
Medical History
-
Chief Complaint: Hypoxemia
History of Present Illness:
Patient is a 73 yo M with PMH of nonischemic cardiomyopathy with EF 35 to 40% by echo/cath 04/2023, hypertension, hyperlipidemia, PVCs, VT s/p Medtronic dual-chamber ICD, cardiac sarcoidosis on chronic steroids, history of PE on chronic
anticoagulation with Xarelto who presented 01/20/2024 to [facility] with cough, shortness of breath, sore throat and runny nose. Patient was recently in [place] for a prolonged trip when he developed the symptoms x ~2 weeks. On presentation
to the emergency department patient was found to be hypoxic requiring oxygen and tested positive for COVID an imaging showed evidence of pneumonia. He was not a remdesivir candidate and therefore was was started on IV steroids, bronchodilator
therapy, and IV antibiotic. Troponin 0.043 at peak repeat now undetectable. EKG on presentation showed sinus rhythm. Patient developed worsening oxygen demand requiring transfer to ICU on 01/22/2024. Concern for possible heart failure prompting
cardiology consult. proBNP 259 on 01/20/2024 with with repeat 369 01/22/2024. Patient did get 1 dose of IV Lasix on 01/21/2024. At this time he reports feeling mildly SOB and is still require oxygen.
PMH:
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
H/o Syncope due to VT s/p shock x1 in 04/24/23
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
Ventricular tachycardia
Status post Medtronic DC ICD placement 04/26/2023
Nonischemic Cardiomyopathy, EF 35-40% by echo 03/2023
Hypertension
Hyperlipidemia
PVCs
Morbid obesity
COPD/Former tobacco use
Hx PE 1983, 1999, on chronic xarelto
Prior history of alcohol abuse, now has 4 shots a week
Past Medical History
Past Medical History: Other (in HPI)
Past Surgical History: Cardiac (s/p medtronic DC ICD 04/2023), Orthopedic (Left knee arthroscopy 2010, Right knee surgery 2017) and Other (Basal cell left ear 2020. Cataract extraction 2021. Melanoma excision right wrist 2023)
Social History
Tobacco: Former Smoker
Alcohol: Occasional (1 shot of whiskey 4 times a week)
Drug: None
Personal:
Living: With Family
Employment: Retired
Family History
Family History: CAD, Cancer, Hypertension and Other (pacemaker in father)
Allergies / Home Medications
Allergy/AdvReac Type Severity Reaction Status Date / Time
No Known Allergies Allergy Verified 01/20/24 10:07
�Medication �Instructions �Recorded �Confirmed �Type
carvedilol 6.25 mg tablet 6.25 mg PO BID ##60 01/14/15 01/20/24 Rx
atorvastatin 10 mg tablet 10 mg PO DAILY High Cholesterol 04/24/23 01/20/24 History
rivaroxaban 20 mg tablet (Xarelto) 20 mg PO HS Blood Clot 04/24/23 01/20/24 History
Prevention/Tx
vitamin B complex 1 tab PO DAILY Supplement 04/24/23 01/20/24 History
empagliflozin 10 mg tablet 10 mg PO DAILY HF #30 tabs 04/27/23 01/20/24 Rx
(Jardiance)
aflibercept 8 mg/0.07 mL 8 mg intravitreal Q4W Eye Condition 01/20/24 01/20/24 History
intravitreal solution for
injection ([facility])
amiodarone 200 mg tablet (Pacerone) 200 mg PO DAILY VTach 01/20/24 01/20/24 History
peg 400-propylene glycol (PF) 0.4 1 drp BOTH EYES Q6HPRN PRN dry eyes 01/20/24 01/20/24 History
%-0.3 % eye drops in a dropperette
(Systane (PF))
prednisone 10 mg tablet 40 mg PO DAILY Anti-Inflammatory 01/20/24 01/20/24 History
sacubitril 24 mg-valsartan 26 mg 1 tab PO BID Heart Failure 01/20/24 01/20/24 History
tablet (Entresto)
spironolactone 25 mg tablet 12.5 mg PO DAILY Blood Pressure 01/20/24 01/20/24 History
sulfamethoxazole 400 1 tab PO DAILY Infection 01/20/24 01/20/24 History
mg-trimethoprim 80 mg tablet
(Bactrim)
therapeutic multivitamin 1 tab PO DAILY Supplement 01/20/24 01/20/24 History
Review of Systems
-
History Source: Patient
All other systems: Negative unless noted
Physical Exam
Vital Signs
Temp Pulse Resp BP Pulse Ox
97.7 F 62 16 137/74 93
01/22/24 07:15 01/22/24 08:10 01/22/24 08:06 01/22/24 08:10 01/22/24 08:06
GEN: No distress, awake, Ox3
HEENT: supple, anicteric, mmm
LUNGS: scattered faint expiratory wheezes with decreased and coarse BS at the bases
CV: Reg rate and rhythm, S1/S2, 1/6 syst LSB, no murmur
ABD: soft, BS+, NT/ND
EXT: No edema. clubbing or cyanosis
NEURO: Gross non-focal
SKIN: No rash, warm, dry
Lab Results
01/22/24 07:21
01/22/24 07:21
Troponin I 0.034 ng/ml 01/20/24 16:52
Voa-S-Upwaqdzcsbz Pept 259 pg/ml 01/20/24 10:21
Impression / Plan
-
Primary Light Armored Reconnaissance Officer: Dr. Fam
Dr. Ced Mora: ([facility] cardiac sarcoid), phone [phone]
Impression:
Presented 01/20/2024 with cough, shortness of breath, runny nose and sore throat x 12 days
Respiratory failure-acute hypoxemic due to community-acquired pneumonia
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
COPD with mild acute exacerbation
Abnormal troponin, 0.043
EMEKA
Hyperglycemia
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
H/o Syncope due to VT s/p shock x1 in ES 04/24/23
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
Ventricular tachycardia
Status post Medtronic DC ICD placement 04/26/2023
Nonischemic Cardiomyopathy, EF 35-40% by echo 03/2023
Nonobstructive CAD by cath 2022
Hypertension
Hyperlipidemia
PVCs
Morbid obesity
COPD/Former tobacco use
Daily ETOH use (3-4 hard liquors/day)
Hx PE 1983, 1999, on chronic xarelto
Cardiac cath 04/25/2023: LM: Luminal Irregularities, Ramus: Normal, LCx: normal, RCA: LI, LVEF: 30% global HK and posterior basal HK. 1+MR
Cath 2014: nonobstructive CAD
ECHO 09/2022: EF 45-50%, mild concentric LVH, focal calcification of anterior mitral valve leaflet, mild MR, trace TR, PAP 39 mmHg
ECHO 04/25/23: EF 35 to 40%, basal to mid inferior and inferolateral akinesis, mild global hypokinesis, stage I diastolic dysfunction, moderate eccentric MR, mild TR, PAP 26 to 31 mmHg, mildly dilated aortic root
Cardiac MRI 04/26/2023: Severe thickening and transmural enhancement in the inferolateral and inferior whitten of the left ventricle CW previous NH. Focal subendocardial enhancement 50 to 75% of myocardial thickness. Global LV HK.
PET scan-[facility]-05/16/23-increased metabolic activity at the left cardiac border/left ventricle, indicating active disease-sarcoidosis, which correlates with a cardiac MRI findings, hilar and mediastinal lymphadenopathy with increased
metabolic activity indicates active disease as well, cardiac SUV ranging 2.8-3/3, mediastinal, hilar SUV ranging 2.3-3.16 and right hilar lymph node, SUV 3.06, no abnormal pulmonary uptake
PET scan revealed myocardial involvement and mild hilar involvement but no pulmonary parenchymal involvement of sarcoidosis.
Plan:
-Presented 01/20/2024 with cough, shortness of breath, runny nose and sore throat x 12 days after returning from vacationing in [place]. Patient COVID-19 positive with concern for pneumonia with ongoing hypoxia despite initiation of IV steroids, IV
antibiotics and nebulizer treatments. Patient transferred 01/22/2024 to ICU for worsening hypoxemia with increasing oxygen requirement.
-Continue IV steroids, antibiotics (IV ceftriaxone, IV azithromycin) and nebulizer treatment per primary service and pulmonary
-Cardiac sarcoidosis on chronic steroids and Bactrim. He reports prednisone was increased to 40 mg in November following PET scan that showed worsening of sarcoidosis. Bactrim currently on hold secondary to IV antibiotics secondary to pneumonia
-Will request records from Dr. Mora at [facility]
-Patient did receive 1 dose of IV Lasix 20 mg on 01/21/2024. proBNP 259 on 01/20/2024 with with repeat 369 01/22/2024. Patient does not appear to be acutely volume overloaded on examination. Patient's current weight of 226 pounds is actually 4
pounds less than previous office weight in July 2023.
-EKG shows sinus rhythm with stable QTc 474 ms
-History of VT. Status post Medtronic DC ICD placement 04/26/2023. Per review of telemetry shows sinus rhythm with intermittent atrial pacing and PVCs sometimes frequent and in bigeminal/trigeminal pattern. Continue amiodarone 200 mg daily and
carvedilol
-Keep Potassium greater than 4, magnesium greater than 2
-History of waxing and waning cardiomyopathy with most recent echo March 2023 EF 35 to 40%. Repeat echo ordered
-Continue carvedilol, Jardiance and Entresto. Aldactone currently on hold as patient had EMEKA on admission. This seems to have resolved. Consider resuming Aldactone
HPI 01/22/2024:
Patient is a 73 yo M with PMH of nonischemic cardiomyopathy with EF 35 to 40% by echo/cath 04/2023, hypertension, hyperlipidemia, PVCs, VT s/p Medtronic dual-chamber ICD, cardiac sarcoidosis on chronic steroids, history of PE on chronic
anticoagulation with Xarelto who presented 01/20/2024 to [facility] with cough, shortness of breath, sore throat and runny nose. Patient was recently in [place] for a prolonged trip when he developed the symptoms x ~2 weeks. On presentation
to the emergency department patient was found to be hypoxic requiring oxygen and tested positive for COVID an imaging showed evidence of pneumonia. He was not a remdesivir candidate and therefore was was started on IV steroids, bronchodilator
therapy, and IV antibiotic. Troponin 0.043 at peak repeat now undetectable. EKG on presentation showed sinus rhythm. Patient developed worsening oxygen demand requiring transfer to ICU on 01/22/2024. Concern for possible heart failure prompting
cardiology consult. proBNP 259 on 01/20/2024 with with repeat 369 01/22/2024. Patient did get 1 dose of IV Lasix on 01/21/2024.
Data Reviewed
-
EKG: Report Reviewed by me, Discussed with Physician and Discussed with Patient
Radiology: Report Reviewed by me, Discussed with Physician and Discussed with Patient
Labs: Labs Reviewed by me, Discussed with Physician and Discussed with Patient
Old Records: Reviewed
--- NOTE | 2024-01-22 11:25 | W.PN.PUL3 ---
Today's Communication / Plan
-
Transferred to ICU for close monitoring
Cardiology has been consulted
Continue IV corticosteroids
Inhalers
Unable to use nebulizers do isolation
With 2 weeks of symptoms, less likely to benefit from antiviral therapy.
Infectious disease consulted, will defer whether broadening antibiotic spectrum will be worth it.,
Continue oxygen supplementation,Wean as able.
Assessment
-
73-year-old male with history of COPD, sarcoidosis, NITA, CAD, nonischemic cardiomyopathy and arrhythmias who recently returned from extensive trip to [place] complaining of 12-day history of cough, shortness of breath, sore throat and runny nose last
received booster Februaryovid (5 shots total) noted to have pneumonia, covid positive and pulmonary consulted for hypoxemia/pneumonia/ covid 01/21/2024.
Respiratory failure-acute hypoxemic due to community-acquired pneumonia
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
Community-acquired pneumonia
COPD with mild acute exacerbation
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
Troponin elevation-0.043
Mild kdihuf-fephufqkyo-ihlskcnxav 12.4
Hyperglycemia
Conditions present prior to admission:
COPD.
Former smoker quit 2014.
Pulmonary nodule-2 mm right upper lobe stable 2022
NITA.
Obesity.
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
Hypertension.
Hyperlipidemia.
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
PAF.
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
Chronic amiodarone-100 mg daily
Nonischemic CM-EF 35%/ICD.
Diastolic CHF.
CAD-nonocclusive 2014.
Moderate MR.
GERD.
Basal cell skin CA.
Left knee arthroscopy 2010. Mediastinal Skippy. Right knee surgery 2017. Basal cell left ear 2020. Cataract 2021. Melanoma right wrist 2023
Plan
Respiratory decompensation related to zoxpziruw-pjnelxcil-ksppddor-recent travel history and minor contributions from underlying COPD and covid infection in this patient who has had 5 previous vaccinations though he is immunocompromised on chronic
prednisone which puts him at risk for covid complications.
-
Worsening oxygenation up to 15 L mid flow.
Able to speak in full sentences. Does not appear toxic.
Transferred to the ICU 01/22/2024 for close monitoring.
-
Incentive spirometry
Unable to use nebulizers due to COVID/isolation.
Nebulizers if needed
Decadron 6 mg IV twice daily for mild COPD exacerbation. Mild expiratory wheezing. Maintain IV steroids at the current dose, if improved will decrease tomorrow.
Patient on full anticoagulation. Less likely thromboembolic event.
Currently on Spiriva and albuterol
Repeat chest x-ray 01/22/2024-unchanged.
Continue isolation per protocol.
Chronically immunosuppressed.
Follow cultures.
Continue antibiotics to cover community-acquired pneumonia-ceftriaxone and azithromycin initiated
Covid positive
Isolation per protocol
Negative pressure room
Not a candidate for antivirals as symptom onset-out of window, longer than 10 days of symptoms. Doubt that he will benefit from antivirals at this point.
Continue steroids as above.
With chronic immunosuppression, less likely to benefit from Actemra.
Infectious disease has been consulted. Case has been discussed.
-
Doubt acute cardiac event. Does not appear volume overloaded.
Negative troponin-no need to trend at this point.
Normal proBNP.
Patient has cardiac sarcoid on chronic prednisone followed by Dr. Lamas locally and was to see [facility] cardiac sarcoid specialist
Prednisone taper per cardiology in the outpatient setting.
Chronic amiodarone 200 mg daily
Cardiology has been consulted correspondence reviewed.
DVT prophylaxis-on Xarelto

Follow-up by Dr. Segovia-has NITA, aware of associations and treatment options, considering pursuing CPAP, due for yearly low-dose lung cancer screening CT chest 03/2024, prednisone per cardiology-follows Dr. Lamas and reportedly to see cardiac
sarcoid specialist at [facility] for cardiac sarcoid-no obvious pulmonary involvement at this time
Patient was last seen by Dr. Segovia 09/06/2023 and has a follow-up appointment 01/26/2024 at 10:15 AM
Diagnostic data:
Chest x-ray 04/26/23-left chest wall defibrillator placed with lead tips in the right atrium and right ventricle������
Chest x-ray 01/20/2024-bibasilar pneumonia
CT chest. Xeh-cfxe-3-2020 -no evidence of pulmonary malignancy. Stable 2.8 cm subpleural lipoma at the posterior left base. Stable large 2 cm pre tracheal lymph node at the left koko. Minimal emphysematous changes left base. Atherosclerosis�������
CT ueyas-pch-amhx-03-30-2022- Stability of 2 mm right upper lobe nodule. Stable since 2014. Mild subpleural parenchymal scarring with emphysematous change in the upper lateral aspect of the left lower lobe as well on the lateral basilar portion of
the left lower lobe.�������
CT nptzm-yax-jglh 04/20/23-mild central lobular emphysema, 2 mm solid subpleural nodule right upper lobe stable.�������
CT chest 04/25/23-no evidence for pulmonary embolism, mild bibasilar segmental atelectasis, mediastinal and bilateral hilar lymphadenopathy, some of which are partially calcified. These are unchanged compared to recent CT chest 04/20/23 and only
minimally increased compared to 2015, prominence of main pulmonary trunk suggesting pulmonary artery hypertension, 1.3 cm left thyroid nodule unchanged 2014�������
PET scan-[facility]-05/16/23-increased metabolic activity at the left cardiac border/left ventricle, indicating active disease-sarcoidosis, which correlates with a cardiac MRI findings, hilar and mediastinal lymphadenopathy with increased
metabolic activity indicates active disease as well, cardiac SUV ranging 2.8-3/3, mediastinal, hilar SUV ranging 2.3-3.16 and right hilar lymph node, SUV 3.06, no abnormal pulmonary uptake.
Lower extremity ultrasound 01/03/2024-very small subcutaneous edema right ankle, severe tendinosis right peroneal longus and brevis tendons
Echocardiogram-2016- EF normalized from 20 to 55 %�������
Echocardiogram 04/25/23-EF 35-40%, mild global hypokinesis, PA systolic 26-31, compared to 2022, LV is dilated and increased from 5.8-7.2 cm and the EF was decreased from 45% to 35-40%�������
Cardiac MRI 04/26/23-severe thinning akinesis and transmural enhancement of the inferolateral, inferior whitten consistent with chronic myocardial infarction, global left ventricular hypokinesis�������
Cardiac catheterization 04/25/23-nonobstructive coronary artery disease, dilated cardiomyopathy with severe posterior basilar hypokinesis and global hypokinesis.
HST 07/03/23-AHI-10, desaturation josselin 84%, 5.3 minutes spent less than 80% saturation.
Spirometry-2014- FEV1 2.5, 3-73%,FVC 3.61,83 9 BD response Ratio 70�������
PFT-2018- FEV1 3.1, 1-99%,FVC 4.66,110 TLC 103 DLOC 68�������
[id number]- FEV1 3.02-100%, FVC 4.44, 108 ratio 63 Fef 25-75 1.11, 48 33 BD response�������
[id number]- PFT- FEV1 2.73-92%,FVC 4.60, 113, ratio 57 TLC 102 DLCO 85�������
Spirometry 06/12/23-FEV1 2.48-85%, FVC 3.36-83%, no significant BD response. Mild restriction.�������
PFT 07/25/23-FEV1 2.57-87%, FVC 3.84-95%, no significant BD response, TLC 92%, RV 70%, DLCO 69%, DLCO/VA 77%. Mild obstruction and mild reduction in diffusing capacity.�������
Spirometry 09/06/23-FEV1 2.27-70%, FVC 3.93-98%, no significant BD response. Mild obstruction
Subjective Data
-
Date of Service:
Date of Service: January 22, 2024
Chief Complaint: Pulmonary Follow Up (Hypoxemic respiratory failure/PNeumonia)
Subjective:
Worsening oxygenation
Denies any significant chest discomfort
Denies fevers or chills.
Review of Systems
Cardiopulmonary: Dyspnea, Dyspnea on Exertion and Cough
GI: Abdominal Pain (n)
Neuro: Headache (n)
Objective Data
Data Reviewed
Vital Signs / I&O / Oxygen:
Vital Signs
Temp Pulse Resp BP Pulse Ox
97.7 F 62 16 137/74 93
01/22/24 07:15 01/22/24 08:10 01/22/24 08:06 01/22/24 08:10 01/22/24 08:06
Intake and Output
01/21/24 01/22/24 01/23/24
06:59 06:59 06:59
Intake Total 960 / 960 1560 / 1560
Output Total 1900 / 1900 2100 / 2100
Balance -940 / -940 -540 / -540
SaO2 93
Nasal Cannula flow liters per 13
minute
Physical Exam
General: Respiratory Distress (n) and Comfortable
HEENT: Normocephalic
Cardiovascular: S1-S2 and Regular Rhythm
Respiratory: Wheeze (Expiratory. Mild), Crackles (Bibasilar) and Non-Labored Respirations
GI: Soft and Non Distended
Neurology: Awake, Alert, Oriented and No Motor Deficits
Skin: Warm
Labs/Micro/Reports
Lab Data
01/22/24 07:21
01/22/24 07:21
[2024-01-22 11:39] LABS: NT-proBNP 369 pg/ml; Troponin I < 0.012 ng/ml
[2024-01-22] MEDS: DECADRON 6 MG IV (12:21)
[2024-01-22 12:44] LABS: INR 1.87; PT 21.3 Sec (11.4-14.6)
[2024-01-22 12:45] LABS: APTT 33.9 Sec (23.4-35.0)
--- NOTE | 2024-01-22 13:05 | PTCARENOTE ---
patient received from [address] [place] [address], upgrade to ICU level of care. assessments per work list. dyspnea with minimal exertion. coarse breath sounds, basilar crackles. received on midflow 15 liters. resting pulse oximeter 90-92. pulse oximeter 82 with
exertion, advised to take rest periods. patient denies pain, monitor av pacing. urinal, call marquez at bedside. spouse at bedside. updated with plan of care
[2024-01-22] MEDS: STERILE WATER FOR INJECTION 10 ML IV (15:01)
[2024-01-22] MEDS: ROCEPHIN 1000 MG IV (15:01)
--- NOTE | 2024-01-22 15:11 | PN.CDI ---
CDI
- -
CDI:
Physician Documentation Request
Admit Date: 01/20/24 14:40
Dear Doctor Juice,
Please review the following and provide your response in the progress notes.
Clinical Indicators:
Pt admitted with COVID-19 PNA /Acute Hypoxic respiratory Failure
On admit Tmax 101.2, Respirations 33
Pt currently being treated with Rocephin/ Azithromycin
Please clarify which of the following most accurately describes the status of the patient's infection:
Viral Sepsis-POA
- Systemic manifestations of infection, with 2 or more SIRS criteria which include:
- Fever >100.4 degrees F or hypothermia < 96.8 degrees F
- Leukocytosis - WBC > 12,000 or leukopenia - WBC < 4,000 or > 10% bands
- Tachycardia > 90 beats per minute
- Tachypnea - RR > 20 breaths per minute or PaCO2 , 32mmHg
Source: Merck Manual 2013
COVID-19 PNA Only, Without Systemic Illness
Other
Use of terms such as suspected, likely, concern for, or probable (associated with a specific diagnosis that is being evaluated, monitored, or treated as if it exists) are acceptable and can be coded in the inpatient setting, when documented at the
time of discharge.
Thank you,
Malina Soria RN
CDI Specialist
[facility]
Please use your independent medical judgment in providing your response.
[2024-01-22] MEDS: ZITHROMAX INFUSION 250 IV (15:13)
--- NOTE | 2024-01-22 15:35 | PTCARENOTE ---
patient reassessed. pulse oximeter 92 at rest. drops to 80's with exertion, but recovers to the 90's at rest. denies dyspnea. reviewed plan of care with RT and potential need to change or add oxygen mode. good appetite for lunch.
--- NOTE | 2024-01-22 16:18 | W.CARD.DEVCH ---
Cardiac Device Check
-
Device: Implanted Cardioverter-Defibrillator
Trade Economist: [employer]
The patient's device was interrogated with assistance of the device operations support representative followed by a complete physician review. The device had normal function. There has been no evidence of ventricular tachycardia. He had 2 minutes of atrial
fibrillation the week of 01/14/2024. He is on chronic anticoagulation. OptiVol heart failure fluid index stable without evidence of acute heart failure or volume overload. Results reviewed with Dr. Fam.
--- NOTE | 2024-01-22 16:51 | CON.ID ---
Consultation
-
Date/Time Consultation Requested: 01/22/2024 09:59
Date/Time Consultation Performed: 01/22/2024 1640
Requesting Provider: Dr. Bose
Performing Provider: Dr. Tucker
Reason for Consultation: COVID-19
Chief Complaint / Past History
History of Present Illness
Edgar Mariano is a 73-year-old male being evaluated regarding COVID-19. History is obtained from chart review, along with patient interview, and history obtained from the patient's who is present at the bedside.
The patient has a significant past medical history of cardiac sarcoid, and is maintained on 40 mg of prednisone per day. He reports that he recently visited [place] with his . He reports that approximately 6 days into the trip (01/12/2024) he
began to feel sore throat, along with some congestion. Over the next several days he had progressive shortness of breath, and had difficulty with walking. Ultimately, upon return to [facility] he required wheelchair both to get on and off the
airplane. He spent the night following return with his qbjxeo-vf-ixo in [place], but upon returning to the local area he came to the hospital for further evaluation. Here he was tested and found to be COVID-19 positive. Since admission he has
had increasing O2 requirements, and has been placed on 15 L mid flow and moved to the intensive care unit from [facility]. Prior to admission he admits to some fevers, but was found to be 101 degrees here. He reports phlegm, but noted to be clear. He
admits to fatigue.
Past History
Additional Past Medical History:
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
p A-fib
Basal cell skin cancer
CHF
COPD
GERD
HTN
Dyslipidemia
Additional Past Surgical History:
AICD
Cataract surgery
Mohs surgery
Knee surgery
Allergy History:
No Known Allergies Allergy (Verified 01/20/24 10:07)
Medications Reviewed: Yes
Current Antibiotics:
Azithromycin
Ceftriaxone
Social History
Tobacco: Former Smoker
Alcohol: Occasional
Drug: None
Personal:
Living: With Family
Employment: Retired
Family History
Family History: Not Pertinent
Review of Systems
Vital Signs
Temp Pulse Resp BP Pulse Ox
96.8 F L 64 24 108/66 93
01/22/24 15:38 01/22/24 16:00 01/22/24 16:00 01/22/24 16:00 01/22/24 16:00
Physical Exam
Physical Exam
Constitutional: No Acute Distress, Comfortable and Non-toxic
Eyes: No Conjunctival Hemorrhage and Sclera Anicteric
Oral: No Thrush and No Ulcers
Cardiovascular: S1/S2; Negative S3/S4
Pulmonary: Coarse and Other (Mildly labored); Negative Wheezes or Rales
Gastrointestinal: Soft, Non Tender and Non Distended
Extremities: Edema (1+ lower extremities); Negative Cyanosis or Erythema
Skin: Warm and Dry; Negative Rash or Jaundice
Neurological: Awake, Alert and Oriented
Lab / Diagnostic Study Results
01/22/24 07:21
01/22/24 07:21
Abs Immat Gran (auto) 0.2 10^3/uL (0-0.05) H 01/22/24 07:21
Absolute Neuts (auto) 13.8 10^3/uL (1.4-6.5) H 01/22/24 07:21
Absolute Lymphs (auto) 0.4 10^3/uL (1.2-3.4) L 01/22/24 07:21
Absolute Monos (auto) 0.3 10^3/uL (0.1-0.6) 01/22/24 07:21
Absolute Basos (auto) 0.0 10^3/uL (0-0.2) 01/22/24 07:21
Immature Gran % 1.2 % (0-0.5) H 01/22/24 07:21
Neutrophils % 94.1 % (42.2-75.2) H 01/22/24 07:21
Lymphocytes % 2.7 % (20.5-51.1) L 01/22/24 07:21
Monocytes % 1.9 % (1.7-9.3) 01/22/24 07:21
Eosinophils % 0.0 % (0-6) 01/22/24 07:21
Basophils % 0.1 % (0-2) 01/22/24 07:21
PT 21.3 Sec (11.4-14.6) H 01/22/24 12:19
INR 1.87 01/22/24 12:19
Procalcitonin 0.69 ng/ml (0.0-0.25) H 01/20/24 12:52
Microbiology Results
Imaging:
01/20/2024 CXR (portable): There is moderate bibasilar interstitial and airspace opacities. No pleural effusion or pneumothorax. See full dictation for additional detail. Film personally viewed.
Assessment / Plan
COVID-19
Hypoxemic respiratory failure; currently on 15 L mid flow
Leukocytosis; likely steroid effect
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
p A-fib
Basal cell skin cancer
CHF
COPD
GERD
HTN
Dyslipidemia
Recommendations:
At this point in time, the patient is more than 10 days out from onset of symptoms, and remdesivir likely would have little effect.
Continue with ceftriaxone for possible bacterial coinfection.
Continue with steroids and O2 supplementation.
Discontinue further Azithromycin.
Monitor white count and temperature curve.
Wean O2 as possible.
Care Review
Plan reviewed with: Physician (Critical Care)
--- NOTE | 2024-01-22 18:31 | PTCARENOTE ---
assisted out of bed to chair. exertional wheezing and dyspnea with minimal exertion. good appetite. call marquez in reach
[2024-01-22] MEDS: XARELTO 20 MG PO (19:35)
--- NOTE | 2024-01-22 20:00 | PTCARENOTE ---
rec`d pt at 1900. AAOx3. very pleasant. SR on monitor. AV paced w/ AICD. +2 pitting edema rt lower leg. +1 left lower. + pulses. 15L midflow coarse, crackles BS. exertional SOB but recovers. pt gets up w/ 1x assist to bathroom. uses urinal. 22 left
hand and 20 left AC flushed and patent. call marquez in reach, safe environment maintained.
[2024-01-23] VITALS (15 sets, daily range): BP systolic 100–159; BP diastolic 61–139; BMI 33.6
[2024-01-23] MEDS: DECADRON 6 MG IV (00:02)
[2024-01-23 05:38] LABS: % Basophils 0.2 % (0-2); % Immature Granulocytes 1.7 % (0-0.5); % Lymphocytes 2.5 % (20.5-51.1); % Monocytes 1.5 % (1.7-9.3); % Neutrophils 94.1 % (42.2-75.2); Absolute Immature Granulocytes 0.2 10^3/uL (0-0.05); Absolute Lymphocytes 0.3 10^3/uL (1.2-3.4); Absolute Monocytes 0.2 10^3/uL (0.1-0.6); Absolute Neutrophils 12.5 10^3/uL (1.4-6.5); Hematocrit 36.5 % (39.0-52.0); Hemoglobin 12.4 g/dL (13.0-18.0); Mean Corpuscular Hgb 30.7 pg (27.0-31.0); Mean Corpuscular Volume 90.3 fL (80.0-94.0); Mean Platelet Volume 11.2 fL (7.4-10.4); Nucleated Red Blood Cells % 0 % (-); Platelet Count 203 10^3/uL (130-400); Red Blood Cell Count 4.04 10^6/uL (4.70-6.10); Red Cell Dist. Width 15.6 % (11.5-14.5); White Blood Cell Count 13.3 10^3/uL (4.8-10.8)
[2024-01-23 05:50] LABS: ALT (SGPT) 27 U/L (0-50); AST (SGOT) 26 U/L (17-59); Albumin 3.3 g/dl (3.5-5.0); Alkaline Phosphatase 59 U/L (38-126); Blood Urea Nitrogen 34 mg/dl (9-20); Calcium 8.2 mg/dl (8.4-10.2); Carbon Dioxide 26 mmol/L (22-30); Chloride 109 mmol/L (98-107); Estimated Creatinine Clearance 72 ml/min; Glucose 136 mg/dl (70-99); Potassium 4.9 mmol/L (3.5-5.1); Sodium 139 mmol/L (135-145); Total Bilirubin 0.8 mg/dl (0.2-1.3); Total Protein 5.7 g/dl (6.3-8.2); eGFR > 60.00
[2024-01-23] MEDS: ENTRESTO 24 MG/26 MG 1 TAB PO ×2 (07:32→19:27)
[2024-01-23] MEDS: B COMPLEX w/VITAMIN C 1 CAPLET PO (07:32)
[2024-01-23] MEDS: JARDIANCE 10 MG PO (07:33)
[2024-01-23] MEDS: LIPITOR 10 MG PO (07:33)
[2024-01-23] MEDS: THERAGRAN 1 TABLET PO (07:33)
[2024-01-23] MEDS: PACERONE 200 MG PO (07:33)
[2024-01-23] MEDS: COREG 6.25 MG PO ×2 (07:33→19:28)
[2024-01-23] MEDS: SPIRIVA RESPIMAT 2.5 MCG 2 PUFF INH (07:37)
[2024-01-23] MEDS: ProAIR HFA INHALER 2 PUFF INH ×4 (07:37→19:40)
--- NOTE | 2024-01-23 07:49 | PTCARENOTE ---
report received. patient oob to chair, pulse oximeter 84-88 on 15 liters midflow. patient encouraged to cough and deep breathe, use I/S. after coughing and deep breathing, pulse oximeter 88-92. moist nonproductive cough. lungs diminished throughout.
RT at bedside, non rebreather at standby. eating breakfast. alert, oriented. denies pain. dyspneic with exertion. monitor nsr, av pacing with pvc's. abdomen obese active bowel sounds.patient reported large bowel movement this am. call marquez in reach
--- NOTE | 2024-01-23 08:50 | W.PN.INTV ---
Today's Communication / Plan
Recommendations
Change steroids from decadron to solu-medrol
Check sputum culture and urine antigens
Wean down oxygen as tolerated
PT/OT when he improves and is less hypoxic
Low threshold to intubate
Assessment
-
73-year-old male with history of COPD, sarcoidosis, NITA, CAD, nonischemic cardiomyopathy and arrhythmias who recently returned from extensive trip to [place] complaining of 12-day history of cough, shortness of breath, sore throat and runny nose last
received booster Februaryovid (5 shots total) noted to have pneumonia, covid positive and pulmonary consulted for hypoxemia/pneumonia/ covid 01/21/2024.
Impression:
Acute respiratory failure with hypoxia - due to community-acquired pneumonia
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
Community-acquired pneumonia
COPD with mild acute exacerbation
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
Troponin elevation-0.043 on 01/20/2024
Mild anemia
Conditions present prior to admission:
Moderate COPD/centrilobular emphysema (post-BD FEV1: 2.33L / 80% via spirometry from 09/06/2023)
Former smoker quit 2014.
Pulmonary nodule-2 mm right upper lobe stable 2022
NITA.
Obesity.
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
Hypertension.
Hyperlipidemia.
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
PAF.
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
Chronic amiodarone-100 mg daily
Nonischemic CM-EF 35%/ICD.
Diastolic CHF.
CAD-nonocclusive 2014.
Moderate MR.
GERD.
Basal cell skin CA.
Left knee arthroscopy 2010. Mediastinal Skippy. Right knee surgery 2017. Basal cell left ear 2020. Cataract 2021. Melanoma right wrist 2023
Plan
Respiratory decompensation related to qnavcxjyv-ncapvtqgi-wabxljts-recent travel history and minor contributions from underlying COPD and covid infection in this patient who has had 5 previous vaccinations though he is immunocompromised on chronic
prednisone which puts him at risk for covid complications.
-
Worsening oxygenation - still on 15 L mid flow.
Able to speak in full sentences. Does not appear toxic.
Transferred to the ICU 01/22/2024 for close monitoring.
-
Incentive spirometry encouraged
Unable to use nebulizers due to COVID/isolation.
Change Decadron to SoluMedrol 40mg IV q8hr - reduce dose as he clinically improves
Patient on full anticoagulation with Xarelto less likely thromboembolic event.
Currently on Spiriva and prn albuterol
Repeat chest x-ray 01/22/2024-unchanged compared to prior CXR on 01/20/2024
Continue isolation per protocol.
Chronically immunosuppressed.
Abx as per ID - s/p 3 days of ceftriaxone + azithromycin - ID on board
Covid positive antigen from 01/20/2024
Negative pressure room
Not a candidate for antivirals as symptom onset-out of window, longer than 10 days of symptoms. Doubt that he will benefit from antivirals at this point.
Continue steroids as above.
With chronic immunosuppression, less likely to benefit from Actemra.
-
Doubt acute cardiac event. Does not appear volume overloaded.
Troponin peaked at 0.043 on 01/20/2024 and has since decreased to no longer need to trend given it has down trended
Normal proBNP.
Patient has cardiac sarcoid on chronic prednisone followed by Dr. Lamas locally and was to see [facility] cardiac sarcoid specialist
Prednisone taper per cardiology in the outpatient setting.
Chronic amiodarone 200 mg daily
Cardiology has been consulted correspondence reviewed.
DVT prophylaxis-on Xarelto
Continue ICU level care.
Critical care statement: A total of 38 minutes of critical care time was provided for this patient today. This includes management of unstable vital signs, evaluation of the patient at bedside, reviewing the patient's pertinent medical records
including radiographs, microbiology, laboratory evaluations, and discussion with primary team, consultants, pharmacy, nutrition, physical therapy, case management, charge nurse, critical care nursing, and respiratory therapy.

Follow-up by Dr. Segovia-has NITA, aware of associations and treatment options, considering pursuing CPAP, due for yearly low-dose lung cancer screening CT chest 03/2024, prednisone per cardiology-follows Dr. Lamas and reportedly to see cardiac
sarcoid specialist at [facility] for cardiac sarcoid-no obvious pulmonary involvement at this time
Patient was last seen by Dr. Segovia 09/06/2023 and has a follow-up appointment 01/26/2024 at 10:15 AM; will likely need to postpone that office visit.
Diagnostic data:
Chest x-ray 04/26/23-left chest wall defibrillator placed with lead tips in the right atrium and right ventricle������
Chest x-ray 01/20/2024-bibasilar pneumonia
CT chest. Jbx-ilae-4-2020 -no evidence of pulmonary malignancy. Stable 2.8 cm subpleural lipoma at the posterior left base. Stable large 2 cm pre tracheal lymph node at the left koko. Minimal emphysematous changes left base. Atherosclerosis�������
CT rdnlt-xjx-qpwy-03-30-2022- Stability of 2 mm right upper lobe nodule. Stable since 2014. Mild subpleural parenchymal scarring with emphysematous change in the upper lateral aspect of the left lower lobe as well on the lateral basilar portion of
the left lower lobe.�������
CT zyjwz-jqo-wvhf 04/20/23-mild central lobular emphysema, 2 mm solid subpleural nodule right upper lobe stable.�������
CT chest 04/25/23-no evidence for pulmonary embolism, mild bibasilar segmental atelectasis, mediastinal and bilateral hilar lymphadenopathy, some of which are partially calcified. These are unchanged compared to recent CT chest 04/20/23 and only
minimally increased compared to 2014, prominence of main pulmonary trunk suggesting pulmonary artery hypertension, 1.3 cm left thyroid nodule unchanged 2014�������
PET scan-Tyrell Rodriguez-05/16/23-increased metabolic activity at the left cardiac border/left ventricle, indicating active disease-sarcoidosis, which correlates with a cardiac MRI findings, hilar and mediastinal lymphadenopathy with increased
metabolic activity indicates active disease as well, cardiac SUV ranging 2.8-3/3, mediastinal, hilar SUV ranging 2.3-3.16 and right hilar lymph node, SUV 3.06, no abnormal pulmonary uptake.
Lower extremity ultrasound 01/03/2024-very small subcutaneous edema right ankle, severe tendinosis right peroneal longus and brevis tendons
Echocardiogram-2016- EF normalized from 20 to 55 %�������
Echocardiogram 04/25/23-EF 35-40%, mild global hypokinesis, PA systolic -31, compared to 2022, LV is dilated and increased from 5.8-7.2 cm and the EF was decreased from 45% to 35-40%�������
Cardiac MRI 04/26/23-severe thinning akinesis and transmural enhancement of the inferolateral, inferior whitten consistent with chronic myocardial infarction, global left ventricular hypokinesis�������
Cardiac catheterization 04/25/23-nonobstructive coronary artery disease, dilated cardiomyopathy with severe posterior basilar hypokinesis and global hypokinesis.
HST 07/03/23-AHI-10, desaturation josselin 84%, 5.3 minutes spent less than 80% saturation.
Spirometry-2014- FEV1 2.5, 3-73%,FVC 3.61,83 9 BD response Ratio 70�������
PFT-2018- FEV1 3.1, 1-99%,FVC 4.66,110 TLC 103 DLOC 68�������
[id number]- FEV1 3.02-100%, FVC 4.44, 108 ratio 63 Fef 25-75 1.11, 48 33 BD response�������
[id number]- PFT- FEV1 2.73-92%,FVC 4.60, 113, ratio 57 TLC 102 DLCO 85�������
Spirometry 06/12/23-FEV1 2.48-85%, FVC 3.36-83%, no significant BD response. Mild restriction.�������
PFT 07/25/23-FEV1 2.57-87%, FVC 3.84-95%, no significant BD response, TLC 92%, RV 70%, DLCO 69%, DLCO/VA 77%. Mild obstruction and mild reduction in diffusing capacity.�������
Spirometry 09/06/23-FEV1 2.27-70%, FVC 3.93-98%, no significant BD response. Mild obstruction
Subjective Dataa
Subjective Data
Date of Service:
Date of Service: January 23, 2024
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
Subjective:
Patient seen and evaluated today at bedside. Sitting in chair in no acute distress. BP 151/100, on 15L/min midflow with SpO2 89%, HR 63. at bedside. All questions were answered. Patient currently denies chest pain, headache, abdominal
pain, fevers or chills. Saturations do drop into the mid to low 80s when he exerts himself/walks around the room.
Review of Systems
General: Other (Negative unless mentioned above)
Objective Data
Data Reviewed
Vital Signs / I&O / Oxygen:
Vital Signs
Temp Pulse Resp BP Pulse Ox
97.4 F 67 22 131/87 89
01/23/24 07:28 01/23/24 07:51 01/23/24 07:51 01/23/24 07:33 01/23/24 07:51
Intake and Output
01/22/24 01/23/24 01/24/24
06:59 06:59 06:59
Intake Total 1560 / 1560 1115 / 1115 240 / 240
Output Total 2100 / 2100 1800 / 1800
Balance -540 / -540 -685 / -685 240 / 240
SaO2 89
Nasal Cannula flow liters per 15
minute
Physical Exam
General: Respiratory Distress (negative) and Comfortable
HEENT: Normocephalic and Anicteric
Cardiovascular: Peripheral Edema (negative) and Other (paced rhythm)
Respiratory: Wheeze (negative), Crackles ([place] in the mid-lung floyd (R >L)), Rhonchi (negative) and Non-Labored Respirations
GI: Soft, Non Distended, Non Tender and Normal Bowel Sounds
Neurology: AO x 3 and Tremors (negative)
Skin: Warm, Dry and Jaundice (negative)
Labs/Micro/Reports
Lab Data
01/23/24 04:55
01/23/24 04:55
Laboratory Results
01/22/24
12:19
PT 21.3 H
INR 1.87
APTT 33.9
[2024-01-23] MEDS: SOLU-MEDROL PF 40 MG IV ×2 (10:30→18:09)
--- NOTE | 2024-01-23 10:58 | CM ---
CM following re: discharge planning.
Reviewed pt's chart, spoke to pt's over the phone.
Pt is a 73 year old male, admitted with primary dx of Acute hypoxic respiratory failure 2/2 to COVID 19. Pt currently requires 15 L midflow NC with NRB mask.
Pt reports he lives with spouse in a 2SH, 1 step to enter, has no children. 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 No DME, VN or SNF history.
PCP: Doyle Avila
Pharmacy: [facility]
D/C plan: home with anticipated no needs. Family to transport at discharge.
CM will follow with discharge plan updates as hospitalization progresses
--- NOTE | 2024-01-23 11:32 | PTCARENOTE ---
patient reassessed, no changes. using nonrebreather prn for recovery after activity. spouse at bedside. updated with plan of care
--- NOTE | 2024-01-23 13:29 | W.PN.ID1 ---
Date of Service
Date of Service: January 23, 2024
Today's Communication
Discontinue ceftriaxone. See below�
Assessment / Plan
COVID-19
Hypoxemic respiratory failure; remians on 15 L mid flow
Leukocytosis; likely steroid effect
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
p A-fib
Basal cell skin cancer
CHF
COPD
GERD
HTN
Dyslipidemia
Recommendations:
Remdesivir likely would have little effect given timeframe from initiation of symptomatology.
Bacterial coinfection somewhat unlikely at present. Will discontinue further ceftriaxone.
Continue with steroids and O2 supplementation.
Monitor white count and temperature curve.
Wean O2 as possible.
����������������������������������������������������������
Chief Complaint
-: Other (Covid 19)
Subjective / Review of Systems
Pt seen / examined. Remains on 15L mid-flow. Little cough.
Review of Systems: No Fever and No Chills
Vital Signs / Physical Exam
Vital Signs
Vital Signs
Temp Pulse Resp BP Pulse Ox
96.8 F L 63 23 100/61 92
01/23/24 11:32 01/23/24 11:12 01/23/24 11:12 01/23/24 10:00 01/23/24 11:32
Physical Exam
Constitutional: No Acute Distress, Comfortable and Non-toxic
Eyes: Sclera Anicteric
Pulmonary: Non Labored
Gastrointestinal: Non Distended
Extremities: Negative Erythema
Neurological: Awake and Alert
Psychological: Calm
Objective Data
Lab Data
Lab Results
01/23/24 04:55
01/23/24 04:55
PT 21.3 Sec (11.4-14.6) H 01/22/24 12:19
INR 1.87 01/22/24 12:19
APTT 33.9 Sec (23.4-35.0) 01/22/24 12:19
Estimated Creat Clear 72 ml/min 01/23/24 04:55
Total Bilirubin 0.8 mg/dl (0.2-1.3) 01/23/24 04:55
AST 26 U/L (17-59) 01/23/24 04:55
ALT 27 U/L (0-50) 01/23/24 04:55
Alkaline Phosphatase 59 U/L (38-126) 01/23/24 04:55
Most recent labs reviewed.
Micro Results:
01/23/24 10:29 Legionella Urinary Antigen - Final
Urine Negative for Legionella pneumophila Serogroup 1 antigen.
A negative result does not rule out the possiblity of
Legionella infection due to other serogroups or species of
Legionella. Clinical correlation is recommended.
Streptococcus pneumoniae Antigen (M - Final
Negative for Streptococcus pneumoniae antigen.
A negative result does not exclude infection with
Streptococcus pneumoniae. Clinical correlation is
recommended.
Imaging:
01/20/2024 CXR (portable): There is moderate bibasilar interstitial and airspace opacities. No pleural effusion or pneumothorax. See full dictation for additional detail. Film personally viewed.
--- NOTE | 2024-01-23 14:54 | W.PN.CARDCBS ---
Today's Communication / Plan
-
RECOMMENDATIONS:
-Continue to hold spironolactone for now. Can consider restarting near discharge. He does not examine volume overloaded and proBNP low
-Telemetry reviewed and looks okay
-ICD interrogation: Device looks good. Optivol stable with no evidence of volume overload
-2 minutes of atrial fibrillation week of 01/14/24. On chronic oral anticoagulation because of recurring PE x 2
-Will sign off. Notify for any active cardiac issues
Impression / Plan
-
Primary Derrick Barge Operator: Dr. Fam
Dr. Ced Mora: ([place] cardiac sarcoid), phone [phone]
Impression:
Presented 01/20/2024 with cough, shortness of breath, runny nose and sore throat x 12 days
Respiratory failure-acute hypoxemic due to community-acquired pneumonia
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
COPD with mild acute exacerbation
Abnormal troponin, 0.043
EMEKA
Hyperglycemia
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
H/o Syncope due to VT s/p shock x1 in ES 04/24/23
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
Ventricular tachycardia
Status post Medtronic DC ICD placement 04/26/2023
Nonischemic Cardiomyopathy, EF 35-40% by echo 03/2023
Nonobstructive CAD by cath 2022
Hypertension
Hyperlipidemia
PVCs
Morbid obesity
COPD/Former tobacco use
Daily ETOH use (3-4 hard liquors/day)
Hx PE 1983, 1999, on chronic xarelto
Cardiac cath 04/25/2023: LM: Luminal Irregularities, Ramus: Normal, LCx: normal, RCA: LI, LVEF: 30% global HK and posterior basal HK. 1+MR
Cath 2014: nonobstructive CAD
ECHO 09/2022: EF 45-50%, mild concentric LVH, focal calcification of anterior mitral valve leaflet, mild MR, trace TR, PAP 39 mmHg
ECHO 04/25/23: EF 35 to 40%, basal to mid inferior and inferolateral akinesis, mild global hypokinesis, stage I diastolic dysfunction, moderate eccentric MR, mild TR, PAP 26 to 31 mmHg, mildly dilated aortic root
Cardiac MRI 04/26/2023: Severe thickening and transmural enhancement in the inferolateral and inferior whitten of the left ventricle CW previous OH. Focal subendocardial enhancement 50 to 75% of myocardial thickness. Global LV HK.
PET scan-[facility]-05/16/23-increased metabolic activity at the left cardiac border/left ventricle, indicating active disease-sarcoidosis, which correlates with a cardiac MRI findings, hilar and mediastinal lymphadenopathy with increased
metabolic activity indicates active disease as well, cardiac SUV ranging 2.8-3/3, mediastinal, hilar SUV ranging 2.3-3.16 and right hilar lymph node, SUV 3.06, no abnormal pulmonary uptake
PET scan revealed myocardial involvement and mild hilar involvement but no pulmonary parenchymal involvement of sarcoidosis.
IMPRESSION:
-Acute / subacute Hypoxemia secondary to COVID 19 infection
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
-Nonischemic cardiomyopathy with stable LVEF
-Nonobstructive CADz
-Hx of ventricular tachycardia
-History of Pulmonary emboli x 2 on chronic anticoagulation
-Short run of atrial fibrillation : On oral anticoagulation
RECOMMENDATIONS:
-Continue to hold spironolactone for now. Can consider restarting near discharge. He does not examine volume overloaded and proBNP low
-Telemetry reviewed and looks okay
-ICD interrogation: Device looks good. Optivol stable with no evidence of volume overload
-2 minutes of atrial fibrillation week of 01/14/24. On chronic oral anticoagulation because of recurring PE x 2
-Will sign off. Notify for any active cardiac issues
HPI 01/22/2024:
Patient is a 73 yo M with PMH of nonischemic cardiomyopathy with EF 35 to 40% by echo/cath 04/2023, hypertension, hyperlipidemia, PVCs, VT s/p Medtronic dual-chamber ICD, cardiac sarcoidosis on chronic steroids, history of PE on chronic
anticoagulation with Xarelto who presented 01/20/2024 to [facility] with cough, shortness of breath, sore throat and runny nose. Patient was recently in [place] for a prolonged trip when he developed the symptoms x ~2 weeks. On presentation
to the emergency department patient was found to be hypoxic requiring oxygen and tested positive for COVID an imaging showed evidence of pneumonia. He was not a remdesivir candidate and therefore was was started on IV steroids, bronchodilator
therapy, and IV antibiotic. Troponin 0.043 at peak repeat now undetectable. EKG on presentation showed sinus rhythm. Patient developed worsening oxygen demand requiring transfer to ICU on 01/22/2024. Concern for possible heart failure prompting
cardiology consult. proBNP 259 on 01/20/2024 with with repeat 369 01/22/2024. Patient did get 1 dose of IV Lasix on 01/21/2024.
Progress Note - Derrick Barge Operator
Subjective
Date of Service: January 23, 2024
Still requiring high flow oxygen but subjectively feeling better
Objective
Labs:
01/23/24 04:55
01/23/24 04:55
Labs
Hgb 12.4 g/dL (13.0-18.0) L 01/23/24 04:55
Hct 36.5 % (39.0-52.0) L 01/23/24 04:55
Plt Count 203 10^3/uL (130-400) 01/23/24 04:55
PT 21.3 Sec (11.4-14.6) H 01/22/24 12:19
INR 1.87 01/22/24 12:19
APTT 33.9 Sec (23.4-35.0) 01/22/24 12:19
Sodium 139 mmol/L (135-145) 01/23/24 04:55
Potassium 4.9 mmol/L (3.5-5.1) 01/23/24 04:55
BUN 34 mg/dl (9-20) H 01/23/24 04:55
Creatinine 1.1 mg/dL (0.7-1.3) 01/23/24 04:55
Glucose 136 mg/dl (70-99) H 01/23/24 04:55
Troponins
01/20/24 01/22/24 01/22/24
16:52 10:27 16:15
Troponin I 0.034 < 0.012 Cancelled
01/22/24
22:15
Troponin I Cancelled
Vital Signs and I&O:
Vital Signs
Temp Pulse Resp BP Pulse Ox
96.8 F L 60 21 116/64 94
01/23/24 11:32 01/23/24 14:30 01/23/24 14:30 01/23/24 14:00 01/23/24 14:30
Vital Signs
Temp Pulse Resp BP Pulse Ox
96.8 F L 60 21 116/64 94
01/23/24 11:32 01/23/24 14:30 01/23/24 14:30 01/23/24 14:00 01/23/24 14:30
Intake & Output
01/20/24 01/21/24 01/22/24 01/23/24
23:59 23:59 23:59 23:59
Intake Total 480 / 480 1560 / 1560 1595 / 1595 840 / 840
Output Total 600 / 600 2650 / 2650 2050 / 2050 1050 / 1050
Balance -120 / -120 -1090 / -1090 -455 / -455 -210 / -210
Physical Exam
Physical Exam
GEN: Face mask is worn. He is sitting in chair. Speaking in full sentences. [address]. No acute distress
HEENT: NC/AT, sclera are anicteric
LUNGS: Diminished at bases. No wheezing. No crackles.
CV: Regular rate and rhythm. Normal S1/S2. No S3, No S4. Murmur: II/ at apex
EXT: No CCE
NEURO: No focal neurologic deficits
--- NOTE | 2024-01-23 15:44 | W.PN.HOSP.TC ---
Addendum entered and electronically signed by Milton Bose MD 01/23/24 15:54:
Viral Sepsis-POA
Original Note:
Today's Communication/Plan
-
Steroids increased as patient remains significantly hypoxic
Continue to monitor in ICU
Assessment / Plan
Assessment / Plan
Physical Exam
General: Not in acute distress
HEENT: Normocephalic
Respiratory: Rales (Bibasilar Rales, CTA otherwise)
Cardiac: Regular Rhythm and S1/S2
GI: Soft, Nontender, Nondistended and Normal Bowel Sounds
Musculoskeletal: No Cyanosis and No Edema
Skin: Warm and Dry
Neuro: AO x 3, Nonfocal/Grossly Intact and Central Nerve's Intact

73-year-old male with cardiopulmonary sarcoidosis (chronic prednisone), VT s/p AICD, AF on Xarelto that presented with shortness of breath that occurred when he was vacationing in [place]. Symptoms started ~8 days prior to presentation,
progressively worsened and developed shortness of breath prior to admission. Tested positive for COVID, started on IV steroids twice daily with bronchodilator MDI. Rn Traveling is following, started on incentive spirometry. Oxygen status has
been volatile, was down to 2 L then up to 6, then up to 10. Got 1 dose of Lasix on 01/20 but not usually on loop diuretic doses
#Acute hypoxemic respiratory failure
#COVID-19 infection -- symptoms 8 days ago while in [place]
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
#H/O COPD -- Gold class A, no exacerbations or hospital stays in 9 years
-Not candidate for Paxlovid
-Required 6 L in the ED, continue to be on 15 L midflow oxygen saturating in the low 90s --> continue monitoring patient in ICU
-Receiving empiric IV antibiotics due to mildly elevated Pro-Aldo on admission
-Pulmonology consulted, recommended ICS
-Status post IV dexamethasone twice daily for COVID --> now changed to Solumedrol with a higher equivalent prednisone dosing, appreciate Aircraft Machinist
-Continue with incentive spirometry for atelectasis
-Continue with bronchodilator MDI scheduled
-Wean O2 as able, SpO2 goal 88 to 94%
-Consulted Infectious Disease, evaluation and recommendations appreciated: IV antibiotics stopped, and antiviral would likely not help at this point
-Consulted Cardiology given patient's significant cardiac history, COVID with significantly worsened hypoxia as of 01/22/24
#Chronic HFrEF -- infiltrative cardiomyopathy, EF 35 to 40%
#VT S/P AICD -- 2022 Medtronic
#Cardiac sarcoidosis
#Secondary mitral regurgitation
-On GDMT with carvedilol, SGLT2i, Entresto
-Hold Spironolactone for now
-Seems fairly well compensated, not on standing diuretic regimen
-Appears euvolemic as of now
-Repeat echo noted
-cardio recommendations appreciated
#Paroxysmal AF -- anticoagulated with Xarelto
-Home regimen includes carvedilol, amiodarone, Xarelto
-No known history of PVI or other ablations
-Heart rate has been WNL, seems NSR
#Acute on chronic troponinemia
#Nonocclusive CAD
-Chronic troponin elevation context of myocardial infiltrative disease
-Baseline troponin likely near 0.04 though has been higher
-No chest pain, ECG without ST deviation, low suspicion for ACS on troponin trend
#H/O DVT/PE -- provoked on long hospital stay, maintained on Xarelto
# Prerenal EMEKA -- resolved; in setting of diuretics, illness; improved with diuretics held
#Obesity -- BMI 34.5
DVT prophylaxis: Home Xarelto
Diet: House
CODE STATUS: Full code
COVID and pneumonia, requiring 15 L of mid-flow oxygen, is a high-risk encounter.
Anticipated Discharge: > 48 hours
Subjective/Interval History
-
Date of Service: January 23, 2024
Patient was seen and examined. He reported he is not too short of breath, still significantly hypoxic however.
Objective Data
-
Labs:
Laboratory Results
01/23/24
04:55
WBC 13.3 H
Hgb 12.4 L
Hct 36.5 L
Plt Count 203
Sodium 139
Potassium 4.9
Chloride 109 H
Carbon Dioxide 26
BUN 34 H
Creatinine 1.1
Glucose 136 H
Calcium 8.2 L
Total Bilirubin 0.8
AST 26
ALT 27
Alkaline Phosphatase 59
Vital Signs:
Vital Signs
Temp Pulse Resp BP Pulse Ox
95.8 F L 60 20 116/64 92
01/23/24 15:33 01/23/24 15:38 01/23/24 15:38 01/23/24 14:00 01/23/24 15:38
I&O
01/22/24 01/23/24 01/24/24
06:59 06:59 06:59
Intake Total 1560 / 1560 1115 / 1115 840 / 840
Output Total 2099 / 2099 1800 / 1800 550 / 550
Balance -540 / -540 -685 / -685 290 / 290
--- NOTE | 2024-01-23 16:34 | PTCARENOTE ---
reassessed, no changes in assessments
[2024-01-23 18:26] LABS: Glucose - Point of Care 149 mg/dl (70-99)
--- NOTE | 2024-01-23 20:17 | PTCARENOTE ---
Received patient AAOx3, following commands, denying pain. Moved back into bed from chair, standby assist. Normal sinus, 60s, with occasional PVCs, AV paced. BP stable 120s/70s, palpable radial and pedal pulses bilaterally. +2 RLE edema, +1 on LLE.
Normothermic. On 15 liters midflow, saturating 95%. MARIEE, shallow respirations, tachypneic to high 20s. Fine crackles in the bases, diminished throughout. Last BM today, urinal to void. PIVs patent, capped, WNL. Call marquez within reach.
[2024-01-23] MEDS: XARELTO 20 MG PO (21:33)
[2024-01-24] VITALS (11 sets, daily range): BP systolic 104–149; BP diastolic 60–132; BMI 34.3
--- NOTE | 2024-01-24 00:30 | PTCARENOTE ---
Patient assessment unchanged from previous, call marquez within reach.
[2024-01-24] MEDS: SOLU-MEDROL PF 40 MG IV ×3 (03:20→17:51)
--- NOTE | 2024-01-24 03:24 | PTCARENOTE ---
Patient assessment unchanged from previous, labs sent. Call marquez within reach.
[2024-01-24 03:37] LABS: % Basophils 0.2 % (0-2); % Immature Granulocytes 2.7 % (0-0.5); % Lymphocytes 2.3 % (20.5-51.1); % Monocytes 1.9 % (1.7-9.3); % Neutrophils 92.9 % (42.2-75.2); Absolute Immature Granulocytes 0.4 10^3/uL (0-0.05); Absolute Lymphocytes 0.3 10^3/uL (1.2-3.4); Absolute Monocytes 0.2 10^3/uL (0.1-0.6); Hematocrit 37.8 % (39.0-52.0); Hemoglobin 12.8 g/dL (13.0-18.0); Mean Corp Hgb Conc. 33.9 g/dL (33.0-37.0); Mean Corpuscular Volume 91.5 fL (80.0-94.0); Mean Platelet Volume 11.2 fL (7.4-10.4); Nucleated Red Blood Cells % 0 % (-); Platelet Count 208 10^3/uL (130-400); Red Blood Cell Count 4.13 10^6/uL (4.70-6.10); Red Cell Dist. Width 15.5 % (11.5-14.5)
[2024-01-24 04:10] LABS: ALT (SGPT) 27 U/L (0-50); AST (SGOT) 30 U/L (17-59); Albumin 3.4 g/dl (3.5-5.0); Alkaline Phosphatase 52 U/L (38-126); Blood Urea Nitrogen 35 mg/dl (9-20); Calcium 8.3 mg/dl (8.4-10.2); Carbon Dioxide 22 mmol/L (22-30); Chloride 109 mmol/L (98-107); Estimated Creatinine Clearance 79 ml/min; Glucose 143 mg/dl (70-99); Potassium 4.9 mmol/L (3.5-5.1); Sodium 139 mmol/L (135-145); Total Bilirubin 0.9 mg/dl (0.2-1.3); Total Protein 5.8 g/dl (6.3-8.2); eGFR > 60.00
[2024-01-24] MEDS: ProAIR HFA INHALER 2 PUFF INH ×4 (07:16→20:25)
[2024-01-24] MEDS: SPIRIVA RESPIMAT 2.5 MCG 2 PUFF INH (07:22)
--- NOTE | 2024-01-24 08:25 | PTCARENOTE ---
Assumed care of pt at 0715 following shift report. Novel Respiratory precautions maintained. Pt resting quietly in bed watching TV. Reports 'feel like I'm getting better' when asked about SOB. Pt remains on O2 @ 15l/min Midflow w/ Pox 88-92%.
Occasional cough that pt reports is 'more productive' but has not visualized. Physical assessment completed, comfort care and breakfast provided. Call marquez w/in pt reach and safe environment maintained.
[2024-01-24] MEDS: PACERONE 200 MG PO (08:33)
[2024-01-24] MEDS: LIPITOR 10 MG PO (08:33)
[2024-01-24] MEDS: THERAGRAN 1 TABLET PO (08:33)
[2024-01-24] MEDS: JARDIANCE 10 MG PO (08:33)
[2024-01-24] MEDS: ENTRESTO 24 MG/26 MG 1 TAB PO ×2 (08:33→20:09)
[2024-01-24] MEDS: COREG 6.25 MG PO ×2 (08:33→20:10)
[2024-01-24] MEDS: B COMPLEX w/VITAMIN C 1 CAPLET PO (08:34)
--- NOTE | 2024-01-24 08:40 | W.PN.INTV ---
Today's Communication / Plan
Recommendations
High-dose steroids with Solu-Medrol
Follow up sputum culture
Wean down oxygen as tolerated
PT/OT when he improves and is less hypoxic
Start Advair, continue spiriva
Check LE duplex
Check CXR
Low threshold to intubate
Assessment
-
73-year-old male with history of COPD, sarcoidosis, NITA, CAD, nonischemic cardiomyopathy and arrhythmias who recently returned from extensive trip to [place] complaining of 12-day history of cough, shortness of breath, sore throat and runny nose last
received booster Februaryovid (5 shots total) noted to have pneumonia, covid positive and pulmonary consulted for hypoxemia/pneumonia/ covid 01/21/2024.
Impression:
Acute respiratory failure with hypoxia - due to community-acquired pneumonia
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
Community-acquired pneumonia
COPD with acute exacerbation
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
Troponin elevation-0.043 on 01/20/2024
Mild anemia
Conditions present prior to admission:
Moderate COPD/centrilobular emphysema (post-BD FEV1: 2.33L / 80% via spirometry from 09/06/2023)
Former smoker quit 2014.
Pulmonary nodule-2 mm right upper lobe stable 2022
NITA.
Obesity.
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
Hypertension.
Hyperlipidemia.
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
PAF.
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
Chronic amiodarone-100 mg daily
Nonischemic CM-EF 35%/ICD.
Diastolic CHF.
CAD-nonocclusive 2014.
Moderate MR.
GERD.
Basal cell skin CA.
Left knee arthroscopy 2010. Mediastinal Skippy. Right knee surgery 2017. Basal cell left ear 2020. Cataract 2021. Melanoma right wrist 2023
Plan
Respiratory decompensation related to ohjobrvzd-gkvxjukil-qftukmdh-recent travel history and minor contributions from underlying COPD and covid infection in this patient who has had 5 previous vaccinations though he is immunocompromised on chronic
prednisone which puts him at risk for covid complications.
-
Worsening oxygenation - still on 15 L mid flow.
Able to speak in full sentences. Does not appear toxic.
Transferred to the ICU 01/22/2024 for close monitoring.
-
Incentive spirometry encouraged
Unable to use nebulizers due to COVID/isolation.
On 01/22 I changed Decadron to SoluMedrol 40mg IV q8hr - reduce dose as he clinically improves
Patient on full anticoagulation with Xarelto less likely thromboembolic event.
Check LE duplex to assess for DVT
Currently on Spiriva and prn albuterol; add LABA/ICS with Advair 230mcg to improve cough and may improve hypoxia
Repeat chest x-ray 01/24/2024- no major changes compared to prior CXR on 01/20/2024
Continue isolation per protocol.
Chronically immunosuppressed.
Abx as per ID - s/p 3 days of ceftriaxone + azithromycin - ID on board
Covid positive antigen from 01/20/2024
Negative pressure room
Not a candidate for antivirals as symptom onset-out of window, longer than 10 days of symptoms. Doubt that he will benefit from antivirals at this point.
Continue steroids as above.
With chronic immunosuppression, less likely to benefit from Actemra.
-
Doubt acute cardiac event. Does not appear volume overloaded.
Troponin peaked at 0.043 on 01/20/2024 and has since decreased to no longer need to trend given it has down trended
Normal proBNP.
Patient has cardiac sarcoid on chronic prednisone followed by Dr. Lamas locally and was to see [facility] cardiac sarcoid specialist
Prednisone taper per cardiology in the outpatient setting.
Chronic amiodarone 200 mg daily
Cardiology has been consulted correspondence reviewed.
Replete K>4, Mg>2, PO4>3
DVT prophylaxis-on Xarelto
Continue ICU level care given his severe hypoxia with low threshold to intubate. Once oxygen requirements start to improve then we will downgrade to IMU level care at that time.
Critical care statement: A total of 41 minutes of critical care time was provided for this patient today. This includes management of unstable vital signs, evaluation of the patient at bedside, reviewing the patient's pertinent medical records
including radiographs, microbiology, laboratory evaluations, and discussion with primary team, consultants, pharmacy, nutrition, physical therapy, case management, charge nurse, critical care nursing, and respiratory therapy.

Follow-up by Dr. Segovia-has NITA, aware of associations and treatment options, considering pursuing CPAP, due for yearly low-dose lung cancer screening CT chest 03/2024, prednisone per cardiology-follows Dr. Lamas and reportedly to see cardiac
sarcoid specialist at [facility] for cardiac sarcoid-no obvious pulmonary involvement at this time
Patient was last seen by Dr. Segovia 09/06/2023 and has a follow-up appointment 01/26/2024 at 10:15 AM; will need to postpone that office visit.
Diagnostic data:
Chest x-ray 04/26/23-left chest wall defibrillator placed with lead tips in the right atrium and right ventricle������
Chest x-ray 01/20/2024-bibasilar pneumonia
CT chest. Dfk-cpea-3-2020 -no evidence of pulmonary malignancy. Stable 2.8 cm subpleural lipoma at the posterior left base. Stable large 2 cm pre tracheal lymph node at the left koko. Minimal emphysematous changes left base. Atherosclerosis�������
CT egitl-mmv-jwkj-03-30-2022- Stability of 2 mm right upper lobe nodule. Stable since 2014. Mild subpleural parenchymal scarring with emphysematous change in the upper lateral aspect of the left lower lobe as well on the lateral basilar portion of
the left lower lobe.�������
CT lgcmx-jjs-gkkm 04/20/23-mild central lobular emphysema, 2 mm solid subpleural nodule right upper lobe stable.�������
CT chest 04/25/23-no evidence for pulmonary embolism, mild bibasilar segmental atelectasis, mediastinal and bilateral hilar lymphadenopathy, some of which are partially calcified. These are unchanged compared to recent CT chest 04/20/23 and only
minimally increased compared to 2014, prominence of main pulmonary trunk suggesting pulmonary artery hypertension, 1.3 cm left thyroid nodule unchanged 2014�������
PET scan-[facility]-05/16/23-increased metabolic activity at the left cardiac border/left ventricle, indicating active disease-sarcoidosis, which correlates with a cardiac MRI findings, hilar and mediastinal lymphadenopathy with increased
metabolic activity indicates active disease as well, cardiac SUV ranging 2.8-3/3, mediastinal, hilar SUV ranging 2.3-3.16 and right hilar lymph node, SUV 3.06, no abnormal pulmonary uptake.
Lower extremity ultrasound 01/03/2024-very small subcutaneous edema right ankle, severe tendinosis right peroneal longus and brevis tendons
Echocardiogram-2016- EF normalized from 20 to 55 %�������
Echocardiogram 04/25/23-EF 35-40%, mild global hypokinesis, PA systolic , compared to 2022, LV is dilated and increased from 5.8-7.2 cm and the EF was decreased from 45% to 35-40%�������
Cardiac MRI 04/26/23-severe thinning akinesis and transmural enhancement of the inferolateral, inferior whitten consistent with chronic myocardial infarction, global left ventricular hypokinesis�������
Cardiac catheterization 04/25/23-nonobstructive coronary artery disease, dilated cardiomyopathy with severe posterior basilar hypokinesis and global hypokinesis.
HST 07/03/23-AHI-10, desaturation josselin 84%, 5.3 minutes spent less than 80% saturation.
Spirometry-2014- FEV1 2.5, 3-73%,FVC 3.61,83 9 BD response Ratio 70�������
PFT-2018- FEV1 3.1, 1-99%,FVC 4.66,110 TLC 103 DLOC 68�������
[id number]- FEV1 3.02-100%, FVC 4.44, 108 ratio 63 Fef 25-75 1.11, 48 33 BD response�������
[id number]- PFT- FEV1 2.73-92%,FVC 4.60, 113, ratio 57 TLC 102 DLCO 85�������
Spirometry 06/12/23-FEV1 2.48-85%, FVC 3.36-83%, no significant BD response. Mild restriction.�������
PFT 07/25/23-FEV1 2.57-87%, FVC 3.84-95%, no significant BD response, TLC 92%, RV 70%, DLCO 69%, DLCO/VA 77%. Mild obstruction and mild reduction in diffusing capacity.�������
Spirometry 09/06/23-FEV1 2.27-70%, FVC 3.93-98%, no significant BD response. Mild obstruction
Subjective Dataa
Subjective Data
Date of Service:
Date of Service: January 24, 2024
Chief Complaint: Occ Therapist Follow Up
Subjective:
Pt seen and evaluated this AM. Sitting in chair in NAD. Remains on 15L/min midflow with sats 95%. Pulling 1500ml from IS. BP 125/68, HR 76. at bedside. All questions were answered. He has a dry cough. Denies chest pain, headache,
abdominal pain, fevers or chills.
Review of Systems
General: Other (Negative unless mentioned above)
Objective Data
Data Reviewed
Vital Signs / I&O / Oxygen:
Vital Signs
Temp Pulse Resp BP Pulse Ox
97.7 F 77 15 139/93 90
01/24/24 04:00 01/24/24 09:00 01/24/24 09:00 01/24/24 08:33 01/24/24 08:30
Intake and Output
01/23/24 01/24/24 01/25/24
06:59 06:59 06:59
Intake Total 1115 / 1115 1080 / 1080
Output Total 1800 / 1800 2225 / 2225
Balance -685 / -685 -1145 / -1145
SaO2 90
Nasal Cannula flow liters per 15
minute
Physical Exam
General: Respiratory Distress (negative) and Comfortable
HEENT: Normocephalic and Anicteric
Cardiovascular: Peripheral Edema (Trace lower extremity edema (L >R)) and Other (paced rhythm)
Respiratory: Wheeze (negative), Crackles (Piatt in the mid-lung floyd (R >L)), Rhonchi (negative) and Non-Labored Respirations
GI: Soft, Non Distended, Non Tender and Normal Bowel Sounds
Neurology: AO x 3 and Tremors (negative)
Skin: Warm, Dry and Jaundice (negative)
Labs/Micro/Reports
Lab Data
01/24/24 03:25
01/24/24 03:25
Microbiology
01/23/24 13:56 Sputum Gram Stain - Preliminary
01/23/24 10:29 Urine Legionella Urinary Antigen - Final
Negative for Legionella pneumophila Serogroup 1 antigen.
A negative result does not rule out the possiblity of
Legionella infection due to other serogroups or species of
Legionella. Clinical correlation is recommended.
01/23/24 10:29 Urine Streptococcus pneumoniae Antigen (M - Final
Negative for Streptococcus pneumoniae antigen.
A negative result does not exclude infection with
Streptococcus pneumoniae. Clinical correlation is
recommended.
--- NOTE | 2024-01-24 09:50 | W.PN.ID1 ---
Date of Service
Date of Service: January 24, 2024
Today's Communication
Continue supportive measures. Reinitiate prophylactic Bactrim.
Assessment / Plan
COVID-19
Hypoxemic respiratory failure; remians on 15 L mid flow
Leukocytosis; likely steroid effect
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
p A-fib
Basal cell skin cancer
CHF
COPD
GERD
HTN
Dyslipidemia
Recommendations:
Patient doing well off of antibiotics and antivirals.
Reinitiate prophylactic Bactrim.
Continue with steroids and O2 supplementation.
Monitor white count and temperature curve.
Wean O2 as possible.
����������������������������������������������������������
Chief Complaint
-: Other (Covid 19)
Subjective / Review of Systems
Patient seen and examined. Reports breathing feels more comfortable today.
Review of Systems: No Fever and No Chills
Vital Signs / Physical Exam
Vital Signs
Vital Signs
Temp Pulse Resp BP Pulse Ox
97.7 F 77 15 139/93 99
01/24/24 04:00 01/24/24 09:00 01/24/24 09:00 01/24/24 08:33 01/24/24 09:45
Physical Exam
Constitutional: No Acute Distress, Comfortable and Non-toxic
Eyes: Sclera Anicteric
Pulmonary: Non Labored and Other (15 [address] flow in [address].)
Gastrointestinal: Non Distended
Neurological: Awake and Alert
Psychological: Calm
Objective Data
Lab Data
Lab Results
01/24/24 03:25
01/24/24 03:25
PT 21.3 Sec (11.4-14.6) H 01/22/24 12:19
INR 1.87 01/22/24 12:19
APTT 33.9 Sec (23.4-35.0) 01/22/24 12:19
Estimated Creat Clear 79 ml/min 01/24/24 03:25
Total Bilirubin 0.9 mg/dl (0.2-1.3) 01/24/24 03:25
AST 30 U/L (17-59) 01/24/24 03:25
ALT 27 U/L (0-50) 01/24/24 03:25
Alkaline Phosphatase 52 U/L (38-126) 01/24/24 03:25
Most recent labs reviewed.
Micro Results:
01/23/24 13:56 Respiratory Culture - Pending
Sputum Gram Stain - Preliminary
01/23/24 10:29 Legionella Urinary Antigen - Final
Urine Negative for Legionella pneumophila Serogroup 1 antigen.
A negative result does not rule out the possiblity of
Legionella infection due to other serogroups or species of
Legionella. Clinical correlation is recommended.
Streptococcus pneumoniae Antigen (M - Final
Negative for Streptococcus pneumoniae antigen.
A negative result does not exclude infection with
Streptococcus pneumoniae. Clinical correlation is
recommended.
Imaging:
01/20/2024 CXR (portable): There is moderate bibasilar interstitial and airspace opacities. No pleural effusion or pneumothorax. See full dictation for additional detail. Film personally viewed.
[2024-01-24] MEDS: BACTRIM 400 MG/80 MG 1 TABLET PO (10:45)
[2024-01-24] MEDS: ADVAIR HFA 230/21 MCG INHALER 2 PUFF INH ×2 (11:21→20:24)
--- NOTE | 2024-01-24 12:20 | PTCARENOTE ---
Pt sitting OOB in chair visiting w/ . O2 tapered to 12l/min Midflow w/ POx 88-92%. Pt using urinal to void. No complaints or changes noted from previous assessment findings. Call marquez remains w/in pt reach
--- NOTE | 2024-01-24 14:06 | CM ---
CM following re: discharge planning.
Reviewed pt's chart, pt's spouse at bedside.
Per Rounds meeting, pt continues to require 15 L midflow NC of O2, continue supportive care.
PT and OT evaluations noted - home PT vs no needs recommended. Pt will need updated PT/OT evaluations closer to discharge to confirm next level of care.
D/C plan: home with most likely no needs, vs home PT. Pt might need home supplemental oxygen.
CM will follow with discharge plan updates as hospitalization progresses
--- NOTE | 2024-01-24 15:24 | W.PN.HOSP.TC ---
Today's Communication/Plan
-
Continue high dose steroids
Appreciate ID and registrar assistant
Assessment / Plan
Assessment / Plan
Physical Exam
General: Not in acute distress
HEENT: Normocephalic
Respiratory: Rales (Bibasilar Rales, CTA otherwise)
Cardiac: Regular Rhythm and S1/S2
GI: Soft, Nontender, Nondistended and Normal Bowel Sounds
Musculoskeletal: No Cyanosis and No Edema
Skin: Warm and Dry
Neuro: AO x 3, Nonfocal/Grossly Intact and Central Nerve's Intact

73-year-old male with cardiopulmonary sarcoidosis (chronic prednisone), VT s/p AICD, AF on Xarelto that presented with shortness of breath that occurred when he was vacationing in [place]. Symptoms started ~8 days prior to presentation,
progressively worsened and developed shortness of breath prior to admission. Tested positive for COVID, started on IV steroids twice daily with bronchodilator MDI. Educational Psychology Professor is following, started on incentive spirometry. Oxygen status has
been volatile, was down to 2 L then up to 6, then up to 10. Got 1 dose of Lasix on 01/20 but not usually on loop diuretic doses
#Acute hypoxemic respiratory failure
#COVID-19 infection -- symptoms 8 days ago while in [place]
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
#Immunosuppressed on Chronic Prednisone for Cardiac Sarcoidosis
#H/O COPD -- Gold class A, no exacerbations or hospital stays in 9 years
-Not candidate for Paxlovid
-Required 6 L in the ED, then needed 15 L midflow oxygen and saturated in the low 90s/upper 80s --> now to 12 L midflow oxygen; continue monitoring patient in ICU
-Receiving empiric IV antibiotics due to mildly elevated Pro-Aldo on admission
-Pulmonology consulted, recommended ICS
-Status post IV dexamethasone twice daily for COVID --> changed on 01/24/24 to Solumedrol with a higher equivalent Prednisone dosing, appreciate Operations Planner
-Continue with incentive spirometry for atelectasis
-Continue Advair and Spiriva
-Wean O2 as able, SpO2 goal 88 to 94%
-Consulted Infectious Disease, evaluation and recommendations appreciated: IV antibiotics stopped, and antiviral would likely not help at this point
-Prophylactic Bactrim restarted (given patient's chronic prednisone use)
-Consulted Cardiology given patient's significant cardiac history, COVID with significantly worsened hypoxia as of 01/22/24
#Chronic HFrEF -- infiltrative cardiomyopathy, EF 35 to 40%
#VT S/P AICD -- 2022 [employer]
#Cardiac sarcoidosis
#Secondary mitral regurgitation
-On GDMT with carvedilol, SGLT2i, Entresto
-Hold Spironolactone for now
-Seems fairly well compensated, not on standing diuretic regimen
-Appears euvolemic as of now
-Repeat echo noted
-cardio recommendations appreciated
#Paroxysmal AF -- anticoagulated with Xarelto
-Home regimen includes carvedilol, amiodarone, Xarelto
-No known history of PVI or other ablations
-Heart rate has been WNL, seems NSR
#Acute on chronic troponinemia
#Nonocclusive CAD
-Chronic troponin elevation context of myocardial infiltrative disease
-Baseline troponin likely near 0.04 though has been higher
-No chest pain, ECG without ST deviation, low suspicion for ACS on troponin trend
#H/O DVT/PE -- provoked on long hospital stay, maintained on Xarelto
#Prerenal EMEKA -- resolved; in setting of diuretics, illness; improved with diuretics held
#Basal cell skin cancer
#GERD
#Hypertension
#Dyslipidemia
#Obesity -- BMI 34.5
DVT prophylaxis: Xarelto
CODE STATUS: Full code
COVID and pneumonia, requiring 12 L of mid-flow oxygen, is a high-risk encounter.
Anticipated Discharge: > 48 hours
Subjective/Interval History
-
Date of Service: January 24, 2024
Patient was seen and examined. He reported feeling about the same as yesterday, denied any new significant chest pain or shortness of breath.
Objective Data
-
Labs:
Laboratory Results
01/24/24
03:25
WBC 13.0 H
Hgb 12.8 L
Hct 37.8 L
Plt Count 208
Sodium 139
Potassium 4.9
Chloride 109 H
Carbon Dioxide 22
BUN 35 H
Creatinine 1.0
Glucose 143 H
Calcium 8.3 L
Total Bilirubin 0.9
AST 30
ALT 27
Alkaline Phosphatase 52
Vital Signs:
Vital Signs
Temp Pulse Resp BP Pulse Ox
97.7 F 70 17 104/60 90
01/24/24 15:00 01/24/24 14:43 01/24/24 14:43 01/24/24 14:00 01/24/24 14:43
I&O
01/23/24 01/24/24 01/25/24
06:59 06:59 06:59
Intake Total 1115 / 1115 1080 / 1080 360 / 360
Output Total 1800 / 1800 2225 / 2225 525 / 525
Balance -685 / -685 -1145 / -1145 -165 / -165
[2024-01-24 15:43] LABS: Magnesium 2.6 mg/dl (1.6-2.3)
--- NOTE | 2024-01-24 16:12 | PTCARENOTE ---
Pt returned to bed for US of bilateral LEs. Pox down to 77% w/ transfer and improved to 88% at rest. Pt denies feeling SOB and no distress noted. O2 titrated up to 15l/min Midflow w/ POx 93%. remains at bedside. No changes from previous
assessment findings. Call marquez remains w/in pt reach.
--- NOTE | 2024-01-24 20:00 | PTCARENOTE ---
rec`d pt at 1900. aaox3. SR on monitor. AV paced w/ AICD. +1 pitting edema rt lower leg. + pulses. 15L midflow. POX 93-98%. POX drops to the 80s during transfer but is quick to come up. coarse BS. exertional SOB. pt gets up w/ 1x assist to
bathroom. uses urinal. 22 left hand and 20 left AC flushed and patent. call marquez in reach, safe environment maintained.
[2024-01-24] MEDS: XARELTO 20 MG PO (20:10)
[2024-01-25] VITALS (15 sets, daily range): BP systolic 105–156; BP diastolic 61–83; BMI 34.1
[2024-01-25] MEDS: SOLU-MEDROL PF 40 MG IV ×3 (03:31→19:48)
--- NOTE | 2024-01-25 04:00 | PTCARENOTE ---
pt reassessed. no changes in pt assessment. call marquez in reach.
[2024-01-25 04:05] LABS: Hematocrit 36.8 % (39.0-52.0); Hemoglobin 12.7 g/dL (13.0-18.0); Mean Corp Hgb Conc. 34.5 g/dL (33.0-37.0); Mean Corpuscular Hgb 30.8 pg (27.0-31.0); Mean Corpuscular Volume 89.1 fL (80.0-94.0); Mean Platelet Volume 11.4 fL (7.4-10.4); Platelet Count 226 10^3/uL (130-400); Red Blood Cell Count 4.13 10^6/uL (4.70-6.10); Red Cell Dist. Width 15.3 % (11.5-14.5); White Blood Cell Count 15.3 10^3/uL (4.8-10.8)
[2024-01-25 04:22] LABS: Blood Urea Nitrogen 37 mg/dl (9-20); Calcium 8.2 mg/dl (8.4-10.2); Carbon Dioxide 26 mmol/L (22-30); Chloride 107 mmol/L (98-107); Estimated Creatinine Clearance 73 ml/min; Glucose 153 mg/dl (70-99); Magnesium 2.7 mg/dl (1.6-2.3); Sodium 138 mmol/L (135-145); eGFR > 60.00
[2024-01-25] MEDS: ROBITUSSIN DM 5 ML PO (07:57)
[2024-01-25] MEDS: THERAGRAN 1 TABLET PO (07:58)
[2024-01-25] MEDS: LIPITOR 10 MG PO (07:58)
[2024-01-25] MEDS: BACTRIM 400 MG/80 MG 1 TABLET PO (07:58)
[2024-01-25] MEDS: B COMPLEX w/VITAMIN C 1 CAPLET PO (07:58)
[2024-01-25] MEDS: JARDIANCE 10 MG PO (07:58)
[2024-01-25] MEDS: ENTRESTO 24 MG/26 MG 1 TAB PO ×2 (07:59→19:47)
[2024-01-25] MEDS: PACERONE 200 MG PO (08:00)
[2024-01-25] MEDS: COREG 6.25 MG PO ×2 (08:00→19:47)
[2024-01-25 08:07] LABS: Glucose - Point of Care 150 mg/dl (70-99)
[2024-01-25] MEDS: ADVAIR HFA 230/21 MCG INHALER 2 PUFF INH ×2 (08:15→19:37)
[2024-01-25] MEDS: SPIRIVA RESPIMAT 2.5 MCG 2 PUFF INH (08:15)
[2024-01-25] MEDS: ProAIR HFA INHALER 2 PUFF INH ×4 (08:16→19:37)
--- NOTE | 2024-01-25 09:28 | PTCARENOTE ---
Rec'd care of patient at 0700. Patient alert and oriented. VSS. Apaced/NSR with pvcs on tele monitor. Trace b/l LE edema. Palpable pulses. Pulse ox 88-92% on 15L MF. MARIEE. NRB provided for recovery. Lung sounds diminished throughout. Crackles
auscultated in right base. +Cough; productive. Per patient- yellow sputum. Robitussin provided. IS provided and encouraged. +BS. +BM in bathroom. Voiding via urinal. Standby supervision to bathroom and then oob in chair for breakfast.
--- NOTE | 2024-01-25 09:53 | W.PN.INTV ---
Today's Communication / Plan
Recommendations
High-dose steroids with Solu-Medrol --> start to wean today to 40mg IV q12hr as CRP is 16
Start high flow nasal cannula to help hypoxia through alveolar recruitment
BiPAP with sleep 07/02
Trial of lasix 40mg IVP x1 --> monitor strict I/O
Follow up sputum culture (collected 01/22)
PT/OT when he improves and is less hypoxic
Continue Advair + spiriva
Low threshold to intubate
Assessment
-
73-year-old male with history of COPD, sarcoidosis, NITA, CAD, nonischemic cardiomyopathy and arrhythmias who recently returned from extensive trip to [place] complaining of 12-day history of cough, shortness of breath, sore throat and runny nose last
received booster Februaryovid (5 shots total) noted to have pneumonia, covid positive and pulmonary consulted for hypoxemia/pneumonia/ covid 01/21/2024.
Impression:
Acute respiratory failure with hypoxia - due to community-acquired pneumonia in setting of COPD and atelectasis/hypoventilation
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
Community-acquired pneumonia
COPD with acute exacerbation
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
Troponin elevation-0.043 on 01/20/2024
Mild anemia
Conditions present prior to admission:
Moderate COPD/centrilobular emphysema (post-BD FEV1: 2.33L / 80% via spirometry from 09/06/2023)
Former smoker quit 2014.
Pulmonary nodule-2 mm right upper lobe stable 2022
NITA.
Obesity.
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
Hypertension.
Hyperlipidemia.
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
PAF.
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
Chronic amiodarone-100 mg daily
Nonischemic CM-EF 35%/ICD.
Diastolic CHF.
CAD-nonocclusive 2014.
Moderate MR.
GERD.
Basal cell skin CA.
Left knee arthroscopy 2010. Mediastinal Skippy. Right knee surgery 2017. Basal cell left ear 2020. Cataract 2021. Melanoma right wrist 2023
Plan
Respiratory decompensation related to [id number]-recent travel history and contributions from underlying COPD and covid infection in this patient who has had 5 previous vaccinations though he is immunocompromised on chronic
prednisone which puts him at risk for covid complications.
-
Worsening oxygenation - still on 15 L midflow --> transition to high-flow nasal cannula to give him PEEP and aid in alveolar recruitment; this should help his hypoxia and hopefully reduced hospital LOS
Trial of BiPAP with sleep if pt agrees as he says he has a Hx of mild NITA and does not want to wear PAP with sleep as it is 'cumbersome'
Able to speak in full sentences. Does not appear toxic.
Transferred to the ICU 01/22/2024 for close monitoring.
-
Incentive spirometry encouraged
Unable to use nebulizers due to COVID/isolation.
On 01/22 I changed Decadron to SoluMedrol 40mg IV q8hr - reduce dose as he clinically improves
Check CRP and will adjust steroids based on this level --> level is 16 --> reduce solumedrol to 40mg IV q12hr
Patient on full anticoagulation with Xarelto less likely thromboembolic event.
Negative LE duplex
Currently on Spiriva and prn albuterol; on 01/23 I added LABA/ICS with Advair 230mcg to improve cough and may improve hypoxia
Repeat chest x-ray 01/24/2024- no major changes compared to prior CXR on 01/20/2024
Trial of lasix
Continue isolation per protocol.
Chronically immunosuppressed.
Abx as per ID - s/p 3 days of ceftriaxone + azithromycin - ID on board
Covid positive antigen from 01/20/2024
Negative pressure room
Not a candidate for antivirals as symptom onset-out of window, longer than 10 days of symptoms. Doubt that he will benefit from antivirals at this point.
Continue steroids as above.
With chronic immunosuppression, less likely to benefit from Actemra.
-
Doubt acute cardiac event; as stated above, given persistent hypoxia, will trial Lasix today and see if this improves O2 saturations
Troponin peaked at 0.043 on 01/20/2024 and has since decreased to no longer need to trend given it has down trended
Normal proBNP.
Patient has cardiac sarcoid on chronic prednisone followed by Dr. Lamas locally and was to see [facility] cardiac sarcoid specialist
Prednisone taper per cardiology in the outpatient setting.
Chronic amiodarone 200 mg daily
Cardiology has been consulted correspondence reviewed.
Replete K>4, Mg>2, PO4>3
DVT prophylaxis-on Xarelto
Continue ICU level care given his severe hypoxia with low threshold to intubate. Once oxygen requirements start to improve then we will downgrade to IMU level care at that time.
Critical care statement: A total of 38 minutes of critical care time was provided for this patient today. This includes management of unstable vital signs, evaluation of the patient at bedside, reviewing the patient's pertinent medical records
including radiographs, microbiology, laboratory evaluations, and discussion with primary team, consultants, pharmacy, nutrition, physical therapy, case management, charge nurse, critical care nursing, and respiratory therapy.

Follow-up by Dr. Segovia-has NITA, aware of associations and treatment options, considering pursuing CPAP, due for yearly low-dose lung cancer screening CT chest 03/2024, prednisone per cardiology-follows Dr. Lamas and reportedly to see cardiac
sarcoid specialist at [facility] for cardiac sarcoid-no obvious pulmonary involvement at this time
Patient was last seen by Dr. Segovia 09/06/2023 and has a follow-up appointment 01/26/2024 at 10:15 AM; will need to postpone that office visit.
Diagnostic data:
Chest x-ray 04/26/23-left chest wall defibrillator placed with lead tips in the right atrium and right ventricle������
Chest x-ray 01/20/2024-bibasilar pneumonia
CT chest. [id number] -no evidence of pulmonary malignancy. Stable 2.8 cm subpleural lipoma at the posterior left base. Stable large 2 cm pre tracheal lymph node at the left koko. Minimal emphysematous changes left base. Atherosclerosis�������
CT njhns-kpv-mmjg-03-30-2022- Stability of 2 mm right upper lobe nodule. Stable since 2014. Mild subpleural parenchymal scarring with emphysematous change in the upper lateral aspect of the left lower lobe as well on the lateral basilar portion of
the left lower lobe.�������
CT ihieo-[id number] 04/20/23-mild central lobular emphysema, 2 mm solid subpleural nodule right upper lobe stable.�������
CT chest 04/25/23-no evidence for pulmonary embolism, mild bibasilar segmental atelectasis, mediastinal and bilateral hilar lymphadenopathy, some of which are partially calcified. These are unchanged compared to recent CT chest 04/20/23 and only
minimally increased compared to 2014, prominence of main pulmonary trunk suggesting pulmonary artery hypertension, 1.3 cm left thyroid nodule unchanged 2014�������
PET scan-Tyrell Rodriguez-05/16/23-increased metabolic activity at the left cardiac border/left ventricle, indicating active disease-sarcoidosis, which correlates with a cardiac MRI findings, hilar and mediastinal lymphadenopathy with increased
metabolic activity indicates active disease as well, cardiac SUV ranging 2.8-3/3, mediastinal, hilar SUV ranging 2.3-3.16 and right hilar lymph node, SUV 3.06, no abnormal pulmonary uptake.
Lower extremity ultrasound 01/03/2024-very small subcutaneous edema right ankle, severe tendinosis right peroneal longus and brevis tendons
Echocardiogram-2016- EF normalized from 20 to 55 %�������
Echocardiogram 04/25/23-EF 35-40%, mild global hypokinesis, PA systolic 26-31, compared to 2022, LV is dilated and increased from 5.8-7.2 cm and the EF was decreased from 45% to 35-40%�������
Cardiac MRI 04/26/23-severe thinning akinesis and transmural enhancement of the inferolateral, inferior whitten consistent with chronic myocardial infarction, global left ventricular hypokinesis�������
Cardiac catheterization 04/25/23-nonobstructive coronary artery disease, dilated cardiomyopathy with severe posterior basilar hypokinesis and global hypokinesis.
HST 07/03/23-AHI-10, desaturation josselin 84%, 5.3 minutes spent less than 80% saturation.
Spirometry-2014- FEV1 2.5, 3-73%,FVC 3.61,83 9 BD response Ratio 70�������
PFT-2018- FEV1 3.1, 1-99%,FVC 4.66,110 TLC 103 DLOC 68�������
[id number]- FEV1 3.02-100%, FVC 4.44, 108 ratio 63 Fef 25-75 1.11, 48 33 BD response�������
[id number]- PFT- FEV1 2.73-92%,FVC 4.60, 113, ratio 57 TLC 102 DLCO 85�������
Spirometry 06/12/23-FEV1 2.48-85%, FVC 3.36-83%, no significant BD response. Mild restriction.�������
PFT 07/25/23-FEV1 2.57-87%, FVC 3.84-95%, no significant BD response, TLC 92%, RV 70%, DLCO 69%, DLCO/VA 77%. Mild obstruction and mild reduction in diffusing capacity.�������
Spirometry 09/06/23-FEV1 2.27-70%, FVC 3.93-98%, no significant BD response. Mild obstruction
Subjective Dataa
Subjective Data
Date of Service:
Date of Service: January 25, 2024
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
Subjective:
Patient seen antibiotics morning. No acute events reported overnight. Remains on 15 L/min nasal cannula and desaturates with ambulation requiring NRB. BP 117/69, SpO2 94%, HR 75. at bedside and all questions were answered. He denies chest
pain, headache, abdominal pain, fevers or chills. Has occasional dry cough.
Review of Systems
General: Other (Negative unless mentioned above)
Objective Data
Data Reviewed
Vital Signs / I&O / Oxygen:
Vital Signs
Temp Pulse Resp BP Pulse Ox
97.0 F 81 21 137/83 93
01/25/24 08:01 01/25/24 09:00 01/25/24 09:00 01/25/24 08:00 01/25/24 09:00
Intake and Output
01/24/24 01/25/24 01/26/24
06:59 06:59 06:59
Intake Total 1080 / 1080 720 / 720 240 / 240
Output Total 2225 / 2225 1225 / 1225 875 / 875
Balance -1145 / -1145 -505 / -505 -635 / -635
SaO2 93
Nasal Cannula flow liters per 15
minute
Physical Exam
General: Respiratory Distress (negative), Comfortable, Good Appetite and Other (Obese male, appears as stated age, in no acute distress/pleasant mood)
HEENT: Normocephalic and Anicteric
Cardiovascular: Peripheral Edema (Trace lower extremity edema (L >R)) and Other (paced rhythm)
Respiratory: Wheeze (negative), Crackles (Clinch in the mid-lung floyd (R >L)), Rhonchi (negative) and Non-Labored Respirations
GI: Soft, Non Distended, Non Tender and Normal Bowel Sounds
Neurology: AO x 3 and Tremors (negative)
Skin: Warm, Dry and Jaundice (negative)
Labs/Micro/Reports
Lab Data
01/25/24 03:34
01/25/24 03:34
Microbiology
01/23/24 13:56 Sputum Respiratory Culture - Preliminary
Usual Respiratory Carrie
01/23/24 13:56 Sputum Gram Stain - Preliminary
01/23/24 10:29 Urine Legionella Urinary Antigen - Final
Negative for Legionella pneumophila Serogroup 1 antigen.
A negative result does not rule out the possiblity of
Legionella infection due to other serogroups or species of
Legionella. Clinical correlation is recommended.
01/23/24 10:29 Urine Streptococcus pneumoniae Antigen (M - Final
Negative for Streptococcus pneumoniae antigen.
A negative result does not exclude infection with
Streptococcus pneumoniae. Clinical correlation is
recommended.
[2024-01-25] MEDS: LASIX 40 MG IV (11:21)
[2024-01-25] MEDS: ALDACTONE 12.5 MG PO (11:22)
--- NOTE | 2024-01-25 11:25 | PTCARENOTE ---
Patient resting comfortably in chair. Pulse ox 92% on 15L MF. 1x dose of 40mg IV Lasix administered. Spironolactone restarted. No other changes in assessment.
--- NOTE | 2024-01-25 12:03 | W.PN.ID1 ---
Date of Service
Date of Service: January 25, 2024
Today's Communication
Continue supportive measures.
Assessment / Plan
COVID-19
Hypoxemic respiratory failure; remians on 15 L mid flow
Leukocytosis; likely steroid effect
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
p A-fib
Hx basal cell skin cancer
CHF
COPD
GERD
HTN
Dyslipidemia
Recommendations:
Patient stable off antibiotics and antivirals.
Continue prophylactic Bactrim.
Continue with steroids and O2 supplementation.
Monitor white count and temperature curve.
Wean O2 as possible.
No current acute infectious issue.
Will follow along with you peripherally.
����������������������������������������������������������
Chief Complaint
-: Other (Covid 19)
Subjective / Review of Systems
Patient seen and examined. Remains on mid flow O2 at this time. Reports feeling well overall, though.
Review of Systems: No Fever and No Chills
Vital Signs / Physical Exam
Vital Signs
Vital Signs
Temp Pulse Resp BP Pulse Ox
97.0 F 67 16 123/66 95
01/25/24 11:24 01/25/24 11:21 01/25/24 11:00 01/25/24 11:21 01/25/24 11:00
Physical Exam
Constitutional: No Acute Distress, Comfortable and Non-toxic
Eyes: Sclera Anicteric
Pulmonary: Non Labored and Other (Mid flow O2 in place.)
Gastrointestinal: Non Distended
Neurological: Awake and Alert
Psychological: Calm
Objective Data
Lab Data
Lab Results
01/25/24 03:34
01/25/24 03:34
PT 21.3 Sec (11.4-14.6) H 01/22/24 12:19
INR 1.87 01/22/24 12:19
APTT 33.9 Sec (23.4-35.0) 01/22/24 12:19
Estimated Creat Clear 73 ml/min 01/25/24 03:34
Total Bilirubin 0.9 mg/dl (0.2-1.3) 01/24/24 03:25
AST 30 U/L (17-59) 01/24/24 03:25
ALT 27 U/L (0-50) 01/24/24 03:25
Alkaline Phosphatase 52 U/L (38-126) 01/24/24 03:25
C-Reactive Protein 16.00 mg/L (0.0-10.00) H 01/25/24 03:34
Most recent labs reviewed.
Micro Results:
01/23/24 13:56 Respiratory Culture - Final
Sputum Usual Respiratory Carrie
Gram Stain - Final
01/23/24 10:29 Legionella Urinary Antigen - Final
Urine Negative for Legionella pneumophila Serogroup 1 antigen.
A negative result does not rule out the possiblity of
Legionella infection due to other serogroups or species of
Legionella. Clinical correlation is recommended.
Streptococcus pneumoniae Antigen (M - Final
Negative for Streptococcus pneumoniae antigen.
A negative result does not exclude infection with
Streptococcus pneumoniae. Clinical correlation is
recommended.
Imaging:
01/20/2024 CXR (portable): There is moderate bibasilar interstitial and airspace opacities. No pleural effusion or pneumothorax. See full dictation for additional detail. Film personally viewed.
--- NOTE | 2024-01-25 12:51 | W.PN.HOSP.TC ---
Today's Communication/Plan
-
Trial of Lasix
Continue steroids
Appreciate Php Architect and ID
Assessment / Plan
Assessment / Plan
Physical Exam
General: Not in acute distress
HEENT: Normocephalic
Respiratory: Rales (Bibasilar Rales, CTA otherwise)
Cardiac: Regular Rhythm and S1/S2
GI: Soft, Nontender, Nondistended and Normal Bowel Sounds
Musculoskeletal: No Cyanosis and No Edema
Skin: Warm and Dry
Neuro: AO x 3, Nonfocal/Grossly Intact and Central Nerve's Intact

73-year-old male with cardiopulmonary sarcoidosis (chronic prednisone), VT s/p AICD, AF on Xarelto that presented with shortness of breath that occurred when he was vacationing in [place]. Symptoms started ~8 days prior to presentation,
progressively worsened and developed shortness of breath prior to admission. Tested positive for COVID, started on IV steroids twice daily with bronchodilator MDI. Stitchdown Toe Former is following, started on incentive spirometry. Oxygen status has
been volatile, was down to 2 L then up to 6, then up to 10. Got 1 dose of Lasix on 01/20 but not usually on loop diuretic doses
#Acute hypoxemic respiratory failure
#COVID-19 infection -- symptoms 8 days ago while in [place]
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
#Immunosuppressed on Chronic Prednisone for Cardiac Sarcoidosis
#H/O COPD -- Gold class A, no exacerbations or hospital stays in 9 years
-Not candidate for Paxlovid
-Required 6 L in the ED, then needed 15 L midflow oxygen and saturated in the low 90s/upper 80s --> then 12 L midflow oxygen --> now back to 15 L --> transition to high flow oxygen; continue monitoring patient in ICU
-Receiving empiric IV antibiotics due to mildly elevated Pro-Aldo on admission
-Pulmonology consulted, recommended ICS
-Status post IV dexamethasone twice daily for COVID --> changed on 01/24/24 to Solumedrol with a higher equivalent Prednisone dosing then reduced based on CRP, appreciate Php Architect
-Trial of Lasix
-Continue with incentive spirometry for atelectasis
-Continue Advair and Spiriva
-Wean O2 as able, SpO2 goal 88 to 94%
-Consulted Infectious Disease, evaluation and recommendations appreciated: IV antibiotics stopped, and antiviral would likely not help at this point
-Prophylactic Bactrim restarted (given patient's chronic prednisone use)
-Consulted Cardiology given patient's significant cardiac history, COVID with significantly worsened hypoxia as of 01/22/24
#Chronic HFrEF -- infiltrative cardiomyopathy, EF 35 to 40%
#VT S/P AICD -- 2022 [employer]
#Cardiac sarcoidosis
#Secondary mitral regurgitation
-On GDMT with carvedilol, SGLT2i, Entresto
-Hold Spironolactone for now
-Seems fairly well compensated, not on standing diuretic regimen
-Appears euvolemic as of now
-Repeat echo noted
-cardio recommendations appreciated
#Paroxysmal AF -- anticoagulated with Xarelto
-Home regimen includes carvedilol, amiodarone, Xarelto
-No known history of PVI or other ablations
-Heart rate has been WNL, seems NSR
#Acute on chronic troponinemia
#Nonocclusive CAD
-Chronic troponin elevation context of myocardial infiltrative disease
-Baseline troponin likely near 0.04 though has been higher
-No chest pain, ECG without ST deviation, low suspicion for ACS on troponin trend
#H/O DVT/PE -- provoked on long hospital stay, maintained on Xarelto
#Prerenal EMEKA -- resolved; in setting of diuretics, illness; improved with diuretics held
#Basal cell skin cancer
#GERD
#Hypertension
#Dyslipidemia
#History of Mild NITA
-Trial of BiPAP with sleep if patient agrees
#Obesity -- BMI 34.5
DVT prophylaxis: Xarelto
CODE STATUS: Full code
COVID and pneumonia, requiring high-flow oxygen, is a high-risk encounter.
Anticipated Discharge: > 48 hours
Subjective/Interval History
-
Date of Service: January 25, 2024
Patient was seen and examined. He denied any new complaints.
Objective Data
-
Labs:
Laboratory Results
01/25/24
03:34
WBC 15.3 H
Hgb 12.7 L
Hct 36.8 L
Plt Count 226
Sodium 138
Potassium 5.0
Chloride 107
Carbon Dioxide 26
BUN 37 H
Creatinine 1.1
Glucose 153 H
Calcium 8.2 L
Vital Signs:
Vital Signs
Temp Pulse Resp BP Pulse Ox
97.0 F 67 16 123/66 95
01/25/24 11:24 01/25/24 11:21 01/25/24 11:00 01/25/24 11:21 01/25/24 12:38
I&O
01/24/24 01/25/24 01/26/24
06:59 06:59 06:59
Intake Total 1080 / 1080 720 / 720 480 / 480
Output Total 2225 / 2225 1225 / 1225 875 / 875
Balance -1145 / -1145 -505 / -505 -395 / -395
--- NOTE | 2024-01-25 13:57 | CM ---
CM reviewed chart, patient Covid positive, requiring high-flow oxygen. CM will watch for PT/OT recommendation when patient is medically able. CM will continue to follow for all discharge planning needs.
Plan; home with no needs, vs VN, watch for home oxygen needs closer to discharge.
--- NOTE | 2024-01-25 15:07 | PTCARENOTE ---
No changes in assessment. Remains oob in chair. +BM on BSC. Pulse ox 95% on HFNC. O2 down to 90% with exertion.
--- NOTE | 2024-01-25 20:17 | PTCARENOTE ---
Received patient AAOx3, following commands, denying pain. Standby assist to get back into bed from chair. A-paced, NS, 60s. BP stable, 130s/70s, normothermic, trace b/l lower extremity edema. On HFNC, 50 liters, 100%, saturating 94%. Lung sounds
diminished throughout. MARIEE, occasional, productive cough. Last BM today, abdomen soft, round, obese, positive bowel sounds. Urinal to void. Skin tears on right hand and left arm, foams intact. PIVs patent, WNL. Call marquez within reach.
[2024-01-25] MEDS: XARELTO 20 MG PO (21:24)
--- NOTE | 2024-01-25 23:21 | PTCARENOTE ---
Patient assessment unchanged from previous, call marquez within reach.
[2024-01-26] VITALS (27 sets, daily range): BP systolic 75–150; BP diastolic 37–104; BMI 33.3
[2024-01-26 05:50] LABS: Hematocrit 38.3 % (39.0-52.0); Mean Corp Hgb Conc. 33.9 g/dL (33.0-37.0); Mean Corpuscular Volume 91.4 fL (80.0-94.0); Mean Platelet Volume 11.1 fL (7.4-10.4); Platelet Count 222 10^3/uL (130-400); Red Blood Cell Count 4.19 10^6/uL (4.70-6.10); Red Cell Dist. Width 15.3 % (11.5-14.5)
[2024-01-26 06:05] LABS: NT-proBNP 364 pg/ml
[2024-01-26 06:20] LABS: ALT (SGPT) 29 U/L (0-50); AST (SGOT) 23 U/L (17-59); Albumin 3.3 g/dl (3.5-5.0); Alkaline Phosphatase 57 U/L (38-126); Blood Urea Nitrogen 44 mg/dl (9-20); Calcium 7.9 mg/dl (8.4-10.2); Carbon Dioxide 22 mmol/L (22-30); Estimated Creatinine Clearance 66 ml/min; Glucose 157 mg/dl (70-99); Magnesium 2.8 mg/dl (1.6-2.3); Phosphorus 4.8 mg/dl (2.5-4.5); Total Bilirubin 0.9 mg/dl (0.2-1.3); Total Protein 5.7 g/dl (6.3-8.2); eGFR > 60.00
[2024-01-26 06:24] LABS: Chloride 107 mmol/L (98-107); Potassium 4.8 mmol/L (3.5-5.1); Sodium 137 mmol/L (135-145)
[2024-01-26] MEDS: JARDIANCE 10 MG PO (07:54)
[2024-01-26] MEDS: BACTRIM 400 MG/80 MG 1 TABLET PO (07:54)
[2024-01-26] MEDS: LIPITOR 10 MG PO (07:54)
[2024-01-26] MEDS: B COMPLEX w/VITAMIN C 1 CAPLET PO (07:55)
[2024-01-26] MEDS: THERAGRAN 1 TABLET PO (07:55)
[2024-01-26] MEDS: SOLU-MEDROL PF 40 MG IV ×2 (07:55→20:08)
[2024-01-26] MEDS: PACERONE 200 MG PO (07:55)
[2024-01-26] MEDS: ALDACTONE 12.5 MG PO (07:56)
[2024-01-26] MEDS: ADVAIR HFA 230/21 MCG INHALER 2 PUFF INH ×2 (08:06→20:05)
[2024-01-26] MEDS: SPIRIVA RESPIMAT 2.5 MCG 2 PUFF INH (08:06)
[2024-01-26] MEDS: ENTRESTO 24 MG/26 MG 1 TAB PO ×2 (08:07→20:11)
[2024-01-26] MEDS: ProAIR HFA INHALER 2 PUFF INH ×4 (08:07→20:05)
[2024-01-26] MEDS: COREG 6.25 MG PO ×2 (08:08→20:11)
--- NOTE | 2024-01-26 08:42 | W.PN.INTV ---
Today's Communication / Plan
Recommendations
High-dose steroids with Solu-Medrol --> weaned yesterday to 40mg IV q12hr as CRP is 16
Continue high flow nasal cannula to help hypoxia through alveolar recruitment
Refused BiPAP
Check CTA Chest to rule out acute PE
Follow up sputum culture (collected 01/22)
PT/OT when he improves and is less hypoxic
Continue Advair + spiriva
Low threshold to intubate
Assessment
-
73-year-old male with history of COPD, sarcoidosis, NITA, CAD, nonischemic cardiomyopathy and arrhythmias who recently returned from extensive trip to [place] complaining of 12-day history of cough, shortness of breath, sore throat and runny nose last
received booster Februaryovid (5 shots total) noted to have pneumonia, covid positive and pulmonary consulted for hypoxemia/pneumonia/ covid 01/21/2024.
Impression:
Acute respiratory failure with hypoxia - due to community-acquired pneumonia in setting of COPD and atelectasis/hypoventilation
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
Community-acquired pneumonia
COPD with acute exacerbation
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
Troponin elevation-0.043 on 01/20/2024
Mild anemia
Conditions present prior to admission:
Moderate COPD/centrilobular emphysema (post-BD FEV1: 2.33L / 80% via spirometry from 09/06/2023)
Former smoker quit 2014.
Pulmonary nodule-2 mm right upper lobe stable 2022
NITA.
Obesity.
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
Hypertension.
Hyperlipidemia.
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
PAF.
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
Chronic amiodarone-100 mg daily
Nonischemic CM-EF 35%/ICD.
Diastolic CHF.
CAD-nonocclusive 2014.
Moderate MR.
GERD.
Basal cell skin CA.
Left knee arthroscopy 2010. Mediastinal Skippy. Right knee surgery 2017. Basal cell left ear 2020. Cataract 2021. Melanoma right wrist 2023
Plan
Respiratory decompensation related to oipmvldpp-tirkbqvee-nzpldqig-recent travel history and contributions from underlying COPD and covid infection in this patient who has had 5 previous vaccinations though he is immunocompromised on chronic
prednisone which puts him at risk for covid complications.
-
Worsening oxygenation - still on 15 L midflow --> on 01/24, we transitioned to high-flow nasal cannula to give him PEEP and aid in alveolar recruitment; this should help his hypoxia and hopefully reduced hospital LOS --> he seems to be doing well on
high flow nasal cannula and FiO2 is improving. Once FiO2 was down to 50% then transition back to midflow nasal cannula
Trial of BiPAP with sleep if pt agrees as he says he has a Hx of mild NITA and does not want to wear PAP with sleep as it is 'cumbersome' --> he is refusing BiPAP
Able to speak in full sentences. Does not appear toxic.
Transferred to the ICU 01/22/2024 for close monitoring.
-
Incentive spirometry encouraged
Unable to use nebulizers due to COVID/isolation.
On 01/22 I changed Decadron to SoluMedrol 40mg IV q8hr --> reduced to 40 mg IV q12hr on 01/24; reduce dose as he clinically improves
Check CRP and will adjust steroids based on this level --> level is 16 --> reduce solumedrol to 40mg IV q12hr
Patient on full anticoagulation with Xarelto less likely thromboembolic event.
Negative LE duplex, however with his persistent hypoxia it is not unreasonable to rule out acute PE. Check CTA chest.
Currently on Spiriva and prn albuterol; on 01/23 I added LABA/ICS with Advair 230mcg to improve cough and may improve hypoxia
Repeat chest x-ray 01/24/2024- no major changes compared to prior CXR on 01/20/2024
Trial of lasix given on 01/25/2024
Continue isolation per protocol.
Chronically immunosuppressed.
Abx as per ID - s/p 3 days of ceftriaxone + azithromycin - ID on board
Covid positive antigen from 01/20/2024
Negative pressure room
Not a candidate for antivirals as symptom onset-out of window, longer than 10 days of symptoms. Doubt that he will benefit from antivirals at this point.
Continue steroids as above.
With chronic immunosuppression, less likely to benefit from Actemra.
-
Doubt acute cardiac event; as stated above, given persistent hypoxia, trialed Lasix on 01/24 to see if this improves O2 saturations
Troponin peaked at 0.043 on 01/20/2024 and has since decreased to no longer need to trend given it has down trended
Normal proBNP.
Patient has cardiac sarcoid on chronic prednisone followed by Dr. Lamas locally and was to see [facility] cardiac sarcoid specialist
Prednisone taper per cardiology in the outpatient setting.
Chronic amiodarone 200 mg daily
Cardiology has been consulted correspondence reviewed.
Replete K>4, Mg>2, PO4>3
DVT prophylaxis-on Xarelto
Continue ICU level care given his severe hypoxia with low threshold to intubate. Once oxygen requirements start to improve then we will downgrade to IMU level care at that time.
Critical care statement: A total of 37 minutes of critical care time was provided for this patient today. This includes management of unstable vital signs, evaluation of the patient at bedside, reviewing the patient's pertinent medical records
including radiographs, microbiology, laboratory evaluations, and discussion with primary team, consultants, pharmacy, nutrition, physical therapy, case management, charge nurse, critical care nursing, and respiratory therapy.

Follow-up by Dr. Segovia-has NITA, aware of associations and treatment options, considering pursuing CPAP, due for yearly low-dose lung cancer screening CT chest 03/2024, prednisone per cardiology-follows Dr. Lamas and reportedly to see cardiac
sarcoid specialist at [facility] for cardiac sarcoid-no obvious pulmonary involvement at this time
Patient was last seen by Dr. Segovia 09/06/2023 and has a follow-up appointment 01/26/2024 at 10:15 AM; will need to postpone that office visit.
Diagnostic data:
Chest x-ray 04/26/23-left chest wall defibrillator placed with lead tips in the right atrium and right ventricle������
Chest x-ray 01/20/2024-bibasilar pneumonia
CT chest. Oyf-vodq-9-2020 -no evidence of pulmonary malignancy. Stable 2.8 cm subpleural lipoma at the posterior left base. Stable large 2 cm pre tracheal lymph node at the left koko. Minimal emphysematous changes left base. Atherosclerosis�������
CT ejxaq-cbz-twag-03-30-2022- Stability of 2 mm right upper lobe nodule. Stable since 2014. Mild subpleural parenchymal scarring with emphysematous change in the upper lateral aspect of the left lower lobe as well on the lateral basilar portion of
the left lower lobe.�������
CT xkhjx-jgl-tcez 04/20/23-mild central lobular emphysema, 2 mm solid subpleural nodule right upper lobe stable.�������
CT chest 04/25/23-no evidence for pulmonary embolism, mild bibasilar segmental atelectasis, mediastinal and bilateral hilar lymphadenopathy, some of which are partially calcified. These are unchanged compared to recent CT chest 04/20/23 and only
minimally increased compared to 2015, prominence of main pulmonary trunk suggesting pulmonary artery hypertension, 1.3 cm left thyroid nodule unchanged 2014�������
PET scan-Tyrell Rodriguez-05/16/23-increased metabolic activity at the left cardiac border/left ventricle, indicating active disease-sarcoidosis, which correlates with a cardiac MRI findings, hilar and mediastinal lymphadenopathy with increased
metabolic activity indicates active disease as well, cardiac SUV ranging 2.8-3/3, mediastinal, hilar SUV ranging 2.3-3.16 and right hilar lymph node, SUV 3.06, no abnormal pulmonary uptake.
Lower extremity ultrasound 01/03/2024-very small subcutaneous edema right ankle, severe tendinosis right peroneal longus and brevis tendons
Echocardiogram-2016- EF normalized from 20 to 55 %�������
Echocardiogram 04/25/23-EF 35-40%, mild global hypokinesis, PA systolic 26-31, compared to 2022, LV is dilated and increased from 5.8-7.2 cm and the EF was decreased from 45% to 35-40%�������
Cardiac MRI 04/26/23-severe thinning akinesis and transmural enhancement of the inferolateral, inferior whitten consistent with chronic myocardial infarction, global left ventricular hypokinesis�������
Cardiac catheterization 04/25/23-nonobstructive coronary artery disease, dilated cardiomyopathy with severe posterior basilar hypokinesis and global hypokinesis.
HST 07/03/23-AHI-10, desaturation josselin 84%, 5.3 minutes spent less than 80% saturation.
Spirometry-2014- FEV1 2.5, 3-73%,FVC 3.61,83 9 BD response Ratio 70�������
PFT-2018- FEV1 3.1, 1-99%,FVC 4.66,110 TLC 103 DLOC 68�������
[id number]- FEV1 3.02-100%, FVC 4.44, 108 ratio 63 Fef 25-75 1.11, 48 33 BD response�������
[id number]- PFT- FEV1 2.73-92%,FVC 4.60, 113, ratio 57 TLC 102 DLCO 85�������
Spirometry 06/12/23-FEV1 2.48-85%, FVC 3.36-83%, no significant BD response. Mild restriction.�������
PFT 07/25/23-FEV1 2.57-87%, FVC 3.84-95%, no significant BD response, TLC 92%, RV 70%, DLCO 69%, DLCO/VA 77%. Mild obstruction and mild reduction in diffusing capacity.�������
Spirometry 09/06/23-FEV1 2.27-70%, FVC 3.93-98%, no significant BD response. Mild obstruction
Subjective Dataa
Subjective Data
Date of Service:
Date of Service: January 26, 2024
Chief Complaint: English Drawer Follow Up and Pulmonary Follow Up
Subjective:
Patient seen and evaluated this morning. Remains on high flow nasal cannula, FiO2 down to 80%. Saturating 95%, BP 111/75, heart rate 66. He is sitting in chair in no acute distress. Refused BiPAP overnight. He is net -1.6 L last 24 hours.
at bedside and all questions were answered. Patient denies chest pain, headache, shortness of breath at rest, abdominal pain, fevers chills. Feels some shortness of breath when exerting himself.
Review of Systems
General: Other (Negative unless mentioned above)
Objective Data
Data Reviewed
Vital Signs / I&O / Oxygen:
Vital Signs
Temp Pulse Resp BP Pulse Ox
97.8 F 72 20 120/79 94
01/26/24 07:00 01/26/24 09:00 01/26/24 09:00 01/26/24 08:07 01/26/24 09:21
Intake and Output
01/25/24 01/26/24 01/27/24
06:59 06:59 06:59
Intake Total 720 / 720 1440 / 1440
Output Total 1225 / 1225 3050 / 3050
Balance -505 / -505 -1610 / -1610
SaO2 94
Nasal Cannula flow liters per 50
minute
Physical Exam
General: Respiratory Distress (negative), Comfortable, Good Appetite and Other (Obese male, appears as stated age, in no acute distress/pleasant mood)
HEENT: Normocephalic and Anicteric
Cardiovascular: Peripheral Edema (Trace lower extremity edema (L >R)) and Other (paced rhythm)
Respiratory: Wheeze (negative), Crackles (Maury in the RLL-RML; clear in the left hemithorax), Rhonchi (negative) and Non-Labored Respirations
GI: Soft, Distended (Abdominal obesity), Non Tender and Normal Bowel Sounds
Neurology: AO x 3 and Tremors (negative)
Skin: Warm, Dry and Jaundice (negative)
Labs/Micro/Reports
Lab Data
01/26/24 05:35
01/26/24 05:35
Microbiology
01/23/24 13:56 Sputum Respiratory Culture - Final
Usual Respiratory Carrie
01/23/24 13:56 Sputum Gram Stain - Final
01/23/24 10:29 Urine Legionella Urinary Antigen - Final
Negative for Legionella pneumophila Serogroup 1 antigen.
A negative result does not rule out the possiblity of
Legionella infection due to other serogroups or species of
Legionella. Clinical correlation is recommended.
01/23/24 10:29 Urine Streptococcus pneumoniae Antigen (M - Final
Negative for Streptococcus pneumoniae antigen.
A negative result does not exclude infection with
Streptococcus pneumoniae. Clinical correlation is
recommended.
--- NOTE | 2024-01-26 08:55 | PTCARENOTE ---
Received pt from mini shifter RN. AAOx3. NSR on decorating inspector. HRs 70s-80s at rest. SaO2 97% on HFNC 50L/100% FiO2. Weaned down to 50L/80% FiO2 by RT. SaO2 97% on new settings. Lungs sound diminished at bases. VSS. Pt assisted to chair from bed.
Oral care completed. Pt without complaint at this time. Call marquez in reach. Assessment documented.
--- NOTE | 2024-01-26 12:02 | PTCARENOTE ---
Resumed care of patient from previous RN. AAOx3. VSS. NSR. HRs 70s-80s. SaO2 99% on Hi flow 50L/70% FiO2. dysp on exert, prod occasional cough. Lungs diminished at bases. + bs. tolerating chol lowering diet. BSC/urinal being used independently. min
gaurd assist. scattered skin tears on arms. dressings c/d/i. PIVx2 patent. will continue to monitor.
--- NOTE | 2024-01-26 12:38 | CM ---
CM following re: discharge planning.
Reviewed pt's chart, pt's spouse at bedside.
Per Rounds meeting, pt require 50 L HFNC with FIO2 70%, continue supportive care.
PT and OT evaluations noted - home PT vs no needs recommended. Pt will need updated PT/OT evaluations closer to discharge to confirm next level of care.
D/C plan: home with most likely no needs, vs home PT. Pt might need home supplemental oxygen.
CM will follow with discharge plan updates as hospitalization progresses
--- NOTE | 2024-01-26 14:35 | W.PN.HOSP.TC ---
Today's Communication/Plan
-
Continue steroids
CTA Chest for PE
Continue oxygen high flow wean as tolerated
Assessment / Plan
Assessment / Plan
Physical Exam
General: Not in acute distress
HEENT: Normocephalic
Respiratory: Rales (Bibasilar Rales, CTA otherwise)
Cardiac: Regular Rhythm and S1/S2
GI: Soft, Nontender, Nondistended and Normal Bowel Sounds
Musculoskeletal: No Cyanosis and No Edema
Skin: Warm and Dry
Neuro: AO x 3, Nonfocal/Grossly Intact and Central Nerve's Intact

73-year-old male with cardiopulmonary sarcoidosis (chronic prednisone), VT s/p AICD, AF on Xarelto that presented with shortness of breath that occurred when he was vacationing in [place]. Symptoms started ~8 days prior to presentation,
progressively worsened and developed shortness of breath prior to admission. Tested positive for COVID, started on IV steroids twice daily with bronchodilator MDI. Stacker And Sorter Operator is following, started on incentive spirometry. Oxygen status has
been volatile, was down to 2 L then up to 6, then up to 10. Got 1 dose of Lasix on 01/20 but not usually on loop diuretic doses
#Acute hypoxemic respiratory failure
#COVID-19 infection -- symptoms 8 days ago while in [place]
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
#Immunosuppressed on Chronic Prednisone for Cardiac Sarcoidosis
#H/O COPD -- Gold class A, no exacerbations or hospital stays in 9 years
-Not candidate for Paxlovid
-Required 6 L in the ED, then needed 15 L midflow oxygen and saturated in the low 90s/upper 80s --> then 12 L midflow oxygen --> now back to 15 L --> now on high flow 50 L
-Receiving empiric IV antibiotics due to mildly elevated Pro-Aldo on admission
-Pulmonology consulted, recommended ICS
-Status post IV dexamethasone twice daily for COVID --> changed on 01/24/24 to Solumedrol with a higher equivalent Prednisone dosing then reduced based on CRP, appreciate Historian Dramatic Arts
-Trial of Lasix
-Continue with incentive spirometry for atelectasis
-Continue Advair and Spiriva
-Wean O2 as able, SpO2 goal 88 to 94%
-Consulted Infectious Disease, evaluation and recommendations appreciated: IV antibiotics stopped, and antiviral would likely not help at this point
-Prophylactic Bactrim restarted (given patient's chronic prednisone use)
-Consulted Cardiology given patient's significant cardiac history, COVID with significantly worsened hypoxia as of 01/22/24
-Check CT Chest PE
#Chronic HFrEF -- infiltrative cardiomyopathy, EF 35 to 40%
#Nonischemic Cardiomyopathy, EF 35-40% by echo 03/2023
#VT S/P AICD -- 2022 [employer]
#Cardiac sarcoidosis
#Secondary mitral regurgitation
-On GDMT with carvedilol, SGLT2i, Entresto
-Hold Spironolactone for now
-Seems fairly well compensated, not on standing diuretic regimen
-Appears euvolemic as of now
-Repeat echo noted
-cardio recommendations appreciated
#Paroxysmal AF -- anticoagulated with Xarelto
-Home regimen includes carvedilol, amiodarone, Xarelto
-No known history of PVI or other ablations
-Heart rate has been WNL, seems NSR
#Acute on chronic troponinemia
#Nonocclusive CAD
-Chronic troponin elevation context of myocardial infiltrative disease
-Baseline troponin likely near 0.04 though has been higher
-No chest pain, ECG without ST deviation, low suspicion for ACS on troponin trend
#H/O DVT/PE -- provoked on long hospital stay, maintained on Xarelto
#Prerenal EMEKA -- resolved; in setting of diuretics, illness; improved with diuretics held
#Basal cell skin cancer
#GERD
#Hypertension
#Dyslipidemia
#History of Mild NITA
-Trial of BiPAP with sleep if patient agrees
#Obesity -- BMI 34.5
DVT prophylaxis: Xarelto
CODE STATUS: Full code
COVID and pneumonia, requiring high-flow oxygen, is a high-risk encounter.
Anticipated Discharge: > 48 hours
Subjective/Interval History
-
Date of Service: January 26, 2024
Patient was seen and examined. He reported no new symptoms or complaints.
Objective Data
-
Labs:
Laboratory Results
01/26/24
05:35
WBC 16.0 H
Hgb 13.0
Hct 38.3 L
Plt Count 222
Sodium 137
Potassium 4.8
Chloride 107
Carbon Dioxide 22
BUN 44 H
Creatinine 1.2
Glucose 157 H
Calcium 7.9 L
Total Bilirubin 0.9
AST 23
ALT 29
Alkaline Phosphatase 57
Vital Signs:
Vital Signs
Temp Pulse Resp BP Pulse Ox
97.8 F 61 15 115/74 94
01/26/24 07:00 01/26/24 11:27 01/26/24 11:27 01/26/24 10:03 01/26/24 11:28
I&O
01/25/24 01/26/24 01/27/24
06:59 06:59 06:59
Intake Total 720 / 720 1440 / 1440
Output Total 1225 / 1225 3050 / 3050
Balance -505 / -505 -1610 / -1610
--- NOTE | 2024-01-26 14:36 | PN.CDI ---
CDI
- -
CDI:
Physician Documentation Request
Admit Date: 01/20/24 14:40
Dear Doctor Juice,
Please review the following and provide your response in the progress notes.
Clinical Indicators:
Pt admitted with COVID-19 PNA /Acute Hypoxic respiratory Failure
Documented per H&P and progress notes 01/20-01/25, ' Acute on chronic troponinemia...Chronic troponin elevation context of myocardial infiltrative disease Baseline troponin likely near 0.04 though has been higher...'
Cardiology note 01/22,' Abnormal troponin, 0.043...'
Please provide a diagnosis for the above findings:
Acute on Chronic Non-ischemic myocardial injury
Chronic Non-Ischemic Myocardial Injury
Other ( Please specify)
Use of terms such as suspected, likely, concern for, or probable (associated with a specific diagnosis that is being evaluated, monitored, or treated as if it exists) are acceptable and can be coded in the inpatient setting, when documented at the
time of discharge.
Thank you,
Malina Soria RN
CDI Specialist
[facility] [facility]
Please use your independent medical judgment in providing your response.
[2024-01-26] MEDS: FLUSH (NSS) 1 FLUSH IV (20:08)
--- NOTE | 2024-01-26 20:22 | PTCARENOTE ---
Report received from previous shift RN [id number]. Pt in chair, watching television, no complaints offered. Pt is AAO3, denies pain. +MARIEE and oc moist cough, achieving 2000ml on IS device, lung sounds are clear/decreased throughout, pox 92-94% on HiFlow
O2 50L/65%. Novel respiratory precautions maintained. Telemetry rhythm reveals SR w oc PVCs, HR 60-70's, +pacer/AICD, trace lower extremity edema noted, palpable peripheral pulses present. +BS, abdomen round/obese soft nontender. Pt tolerating
cholesterol lowering/2gNa diet, reports good appetite, denies nausea/abdominal discomfort, reports having a 'normal' bm this morning. Voiding yellow urine in urinal at bedside without difficulty. L hand and L AC int's flushed and patent, capped.
Skin as documented. Call marquez within reach, safe environment maintained. Will monitor closely.
[2024-01-26] MEDS: XARELTO 20 MG PO (21:16)
[2024-01-27] VITALS (24 sets, daily range): BP systolic 95–137; BP diastolic 60–89; BMI 32.9
--- NOTE | 2024-01-27 00:30 | PTCARENOTE ---
No change from prior assessment. Pt sleeping comfortably when undisturbed. Pox 94-95% on HiFlow O2 50L/65%. Will continue to monitor.
--- NOTE | 2024-01-27 04:26 | PTCARENOTE ---
Pt awake and coughing intermittently. Pox 89-95% on HiFlow O2 50L/65%.
No change in pt assessment.
Pt declines hygiene care at this time.
AM labs sent as ordered.
[2024-01-27 04:39] LABS: Hematocrit 38.1 % (39.0-52.0); Hemoglobin 13.3 g/dL (13.0-18.0); Mean Corp Hgb Conc. 34.9 g/dL (33.0-37.0); Mean Corpuscular Volume 88.8 fL (80.0-94.0); Mean Platelet Volume 11.3 fL (7.4-10.4); Platelet Count 237 10^3/uL (130-400); Red Blood Cell Count 4.29 10^6/uL (4.70-6.10); Red Cell Dist. Width 15.5 % (11.5-14.5); White Blood Cell Count 16.7 10^3/uL (4.8-10.8)
[2024-01-27 05:02] LABS: Blood Urea Nitrogen 53 mg/dl (9-20); Calcium 8.3 mg/dl (8.4-10.2); Carbon Dioxide 22 mmol/L (22-30); Chloride 105 mmol/L (98-107); Estimated Creatinine Clearance 60 ml/min; Glucose 159 mg/dl (70-99); Potassium 5.2 mmol/L (3.5-5.1); Sodium 135 mmol/L (135-145); eGFR 58.37
--- NOTE | 2024-01-27 06:25 | PTCARENOTE ---
Pt's pox 88-89% on HiFlow O2 50L/65%. RT called to room, RT increased O2 to 50L/75% FIO2. Pt's pox now 91-92%. Will monitor.
[2024-01-27] MEDS: B COMPLEX w/VITAMIN C 1 CAPLET PO (07:34)
[2024-01-27] MEDS: THERAGRAN 1 TABLET PO (07:34)
[2024-01-27] MEDS: ENTRESTO 24 MG/26 MG 1 TAB PO ×2 (07:34→20:11)
[2024-01-27] MEDS: ALDACTONE 12.5 MG PO (07:35)
[2024-01-27 07:36] LABS: Glucose - Point of Care 136 mg/dl (70-99)
[2024-01-27] MEDS: LIPITOR 10 MG PO (07:36)
[2024-01-27] MEDS: JARDIANCE 10 MG PO (07:36)
[2024-01-27] MEDS: BACTRIM 400 MG/80 MG 1 TABLET PO (07:36)
[2024-01-27] MEDS: PACERONE 200 MG PO (07:37)
[2024-01-27] MEDS: COREG 6.25 MG PO ×2 (07:37→20:11)
[2024-01-27] MEDS: FLUSH (NSS) 1 FLUSH IV (07:38)
[2024-01-27] MEDS: SOLU-MEDROL PF 40 MG IV ×2 (07:38→20:12)
[2024-01-27] MEDS: ADVAIR HFA 230/21 MCG INHALER 2 PUFF INH ×2 (08:00→20:26)
[2024-01-27] MEDS: ProAIR HFA INHALER 2 PUFF INH ×4 (08:00→20:26)
[2024-01-27] MEDS: SPIRIVA RESPIMAT 2.5 MCG 2 PUFF INH (08:00)
--- NOTE | 2024-01-27 08:02 | W.PN.ID1 ---
Date of Service
Date of Service: January 27, 2024
Today's Communication
sign off.
Assessment / Plan
COVID-19
Hypoxemic respiratory failure; on high flow
Leukocytosis; likely steroid effect
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
p A-fib
Hx basal cell skin cancer
CHF
COPD
GERD
HTN
Dyslipidemia
Recommendations:
Continue prophylactic Bactrim.
Continue with steroids and O2 supplementation.
Wean O2 as possible.
Little more to offer from a Infectious Diseases standpoint.
Will see again at your request.
����������������������������������������������������������
Chief Complaint
-: Other (Covid 19 PNA)
Subjective / Review of Systems
Remains on supplemental O2; currently on high flow at 50 L
Review of Systems: No Fever
Vital Signs / Physical Exam
Vital Signs
Vital Signs
Temp Pulse Resp BP Pulse Ox
97.4 F 75 20 118/89 93
01/27/24 04:00 01/27/24 07:37 01/27/24 06:00 01/27/24 07:37 01/27/24 06:09
Physical Exam
Constitutional: Comfortable and Non-toxic
Pulmonary: Non Labored
Gastrointestinal: Non Distended
Neurological: Awake and Alert
Psychological: Calm
Objective Data
Lab Data
Lab Results
01/27/24 04:13
01/27/24 04:13
PT 21.3 Sec (11.4-14.6) H 01/22/24 12:19
INR 1.87 01/22/24 12:19
APTT 33.9 Sec (23.4-35.0) 01/22/24 12:19
Estimated Creat Clear 60 ml/min 01/27/24 04:13
Total Bilirubin 0.9 mg/dl (0.2-1.3) 01/26/24 05:35
AST 23 U/L (17-59) 01/26/24 05:35
ALT 29 U/L (0-50) 01/26/24 05:35
Alkaline Phosphatase 57 U/L (38-126) 01/26/24 05:35
C-Reactive Protein 16.00 mg/L (0.0-10.00) H 01/25/24 03:34
Most recent labs reviewed.
Micro Results:
01/23/24 13:56 Respiratory Culture - Final
Sputum Usual Respiratory Carrie
Gram Stain - Final
01/23/24 10:29 Legionella Urinary Antigen - Final
Urine Negative for Legionella pneumophila Serogroup 1 antigen.
A negative result does not rule out the possiblity of
Legionella infection due to other serogroups or species of
Legionella. Clinical correlation is recommended.
Streptococcus pneumoniae Antigen (M - Final
Negative for Streptococcus pneumoniae antigen.
A negative result does not exclude infection with
Streptococcus pneumoniae. Clinical correlation is
recommended.
Imaging:
01/20/2024 CXR (portable): There is moderate bibasilar interstitial and airspace opacities. No pleural effusion or pneumothorax. See full dictation for additional detail. Film personally viewed.
--- NOTE | 2024-01-27 08:30 | PTCARENOTE ---
Rec'd pt at 0715 awake alert and oriented sitting up in bed and wanting to get oob to the chair. Assisted with minimal assist of 1. Gait is steady. Minimal MARIEE. Denies pain. Speech is clear. FERNÁNDEZ. Denies dizziness or headache. Skin is pink wm and
dry. Skin tears on arms with dressings over. Bruising on arms. Respirs overall are unlabored. Does get sl MARIEE but recovers quickly. No desaturation noted. Rec'd pt on High Flow cannula 50L/75%- with sats of 94-96%- weaned at 0820 to 50L/50% with
sats of 95%. BS are decreased at the bases with few base cr. Coughed one time. Overall pt states breathing feels good and is anxious for when he can go home. Explanations given as to the need to wean the O2 first. Monitor SR with isolated PVC's. +
pulses. DP pulses are weak but palp. Tr LE edema. VS as documented. Abd is round and soft with + BS. Voiding bailey/yellow urine in the urinal. Capped ints intact L hand and LAC. Good appetite for breakfast. Plan of care reviewed with pt. Call marquez
in reach. Covid - Respiratory isolation maintained.
--- NOTE | 2024-01-27 09:01 | W.PN.INTV ---
Today's Communication / Plan
Recommendations
High-dose steroids with Solu-Medrol --> weaned on 01/24 to 40mg IV q12hr as CRP is 16
Weaned down from high flow nasal cannula to midflow, currently breathing comfortably on 7 L/min
Refused BiPAP
CT chest shows bilateral groundglass opacities consistent with recent COVID-19 infection with multifocal inflammatory changes -he will require extended slow prednisone taper
Follow up sputum culture (collected 01/22)
PT/OT when he improves and is less hypoxic
Continue Advair + spiriva
He has markedly improved --> stable for downgrade out of ICU to IMU. Pulmonary service will continue to follow.
Assessment
-
73-year-old male with history of COPD, sarcoidosis, NITA, CAD, nonischemic cardiomyopathy and arrhythmias who recently returned from extensive trip to [place] complaining of 12-day history of cough, shortness of breath, sore throat and runny nose last
received booster Februaryovid (5 shots total) noted to have pneumonia, covid positive and pulmonary consulted for hypoxemia/pneumonia/ covid 01/21/2024.
Impression:
Acute respiratory failure with hypoxia - due to COVID-19 pneumonia in setting of COPD and atelectasis/hypoventilation
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
Community-acquired pneumonia due to COVID-19
COPD with acute exacerbation
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
Troponin elevation-0.043 on 01/20/2024
Mild anemia
Suspected right adrenal mass
Conditions present prior to admission:
Moderate COPD/centrilobular emphysema (post-BD FEV1: 2.33L / 80% via spirometry from 09/06/2023)
Former smoker quit 2014.
Pulmonary nodule-2 mm right upper lobe stable 2022
NITA.
Obesity.
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
Hypertension.
Hyperlipidemia.
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
PAF.
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
Chronic amiodarone-100 mg daily
Nonischemic CM-EF 35%/ICD.
Diastolic CHF.
CAD-nonocclusive 2014.
Moderate MR.
GERD.
Basal cell skin CA.
Left knee arthroscopy 2010. Mediastinal Skippy. Right knee surgery 2017. Basal cell left ear 2020. Cataract 2021. Melanoma right wrist 2023
Plan
Transferred to the ICU 01/22/2024 for close monitoring.
Respiratory decompensation related to COVID-19 yijrzgkov-sbvnagxwi-wpwulmtv and contributions from underlying COPD in this patient who has had 5 previous vaccinations though he is immunocompromised on chronic prednisone which puts him at risk for
covid complications.
-
As of today, he is improving with degree of hypoxia and his O2 requirements; he is now on 7 L/min via mid flow nasal cannula after we transitioned to high-flow nasal cannula on 01/24
Check walking home O2 assessment tomorrow
He is refusing BiPAP which I was trying to use at night to help offload ventilatory effort + he has a Hx of mild NITA and does not want to wear PAP with sleep as it is 'cumbersome'
Able to speak in full sentences. Does not appear toxic.
-
Incentive spirometry encouraged
Unable to use nebulizers due to COVID/isolation.
On 01/22 I changed Decadron to SoluMedrol 40mg IV q8hr --> reduced to 40 mg IV q12hr on 01/24; reduce dose as he clinically improves
CRP level is 16 --> reduced solumedrol to 40mg IV q12hr on 01/24 --> keep at this dose until pt ready for discharge and he jomar require extended slow prednisone taper
Patient on full anticoagulation with Xarelto less likely thromboembolic event.
Negative LE duplex, however with his persistent hypoxia it is not unreasonable to rule out acute PE. Check CTA chest.
Currently on Spiriva, albuterol HFA QID and prn albuterol; on 01/23 I added LABA/ICS with Advair 230mcg to improve cough and may improve hypoxia
Repeat chest x-ray 01/24/2024- no major changes compared to prior CXR on 01/20/2024
Trial of lasix given on 01/25/2024
Continue isolation per protocol.
Chronically immunosuppressed.
Abx as per ID - s/p 3 days of ceftriaxone + azithromycin - ID on board
Covid positive antigen from 01/20/2024
Negative pressure room
Not a candidate for antivirals as symptom onset-out of window, longer than 10 days of symptoms. Doubt that he will benefit from antivirals at this point.
Continue steroids as above.
With chronic immunosuppression, less likely to benefit from Actemra.
-
Doubt acute cardiac event; as stated above, given persistent hypoxia, trialed Lasix on 01/24 to see if this improves O2 saturations
Troponin peaked at 0.043 on 01/20/2024 and has since decreased to no longer need to trend given it has down trended
Normal proBNP.
Patient has cardiac sarcoid on chronic prednisone followed by Dr. Lamas locally and was to see [facility] cardiac sarcoid specialist
Prednisone taper per cardiology in the outpatient setting.
Chronic amiodarone 200 mg daily
Cardiology has been consulted correspondence reviewed.
Replete K>4, Mg>2, PO4>3
Outpatient follow-up for suspected right adrenal mass with nonemergent MRI
DVT prophylaxis-on Xarelto
Patient is stable for downgrade to IMU level of care. Pulmonary service will continue to follow along.
Total time spent today was 75 minutes for this encounter. Time includes reviewing laboratory test/imaging results, reviewing pertinent medical records, obtaining and reviewing medical history, performing an appropriate exam, ordering medications,
tests and procedures. Time also includes documentation of this encounter, coordinating patient care and communicating with other healthcare professionals. Total time does not include separately billed tests performed on this date of service.

Follow-up by Dr. Segovia-has NITA, aware of associations and treatment options, considering pursuing CPAP, due for yearly low-dose lung cancer screening CT chest 03/2024, prednisone per cardiology-follows Dr. Lamas and reportedly to see cardiac
sarcoid specialist at [facility] for cardiac sarcoid-no obvious pulmonary involvement at this time
Patient was last seen by Dr. Segovia 09/06/2023 and has a follow-up appointment 01/26/2024 at 10:15 AM; will need to postpone that office visit.
Diagnostic data:
Chest x-ray 04/26/23-left chest wall defibrillator placed with lead tips in the right atrium and right ventricle������
Chest x-ray 01/20/2024-bibasilar pneumonia
CT chest. Tnp-agaa-1-2020 -no evidence of pulmonary malignancy. Stable 2.8 cm subpleural lipoma at the posterior left base. Stable large 2 cm pre tracheal lymph node at the left koko. Minimal emphysematous changes left base. Atherosclerosis�������
CT eabvg-eeg-niib-03-30-2022- Stability of 2 mm right upper lobe nodule. Stable since 2014. Mild subpleural parenchymal scarring with emphysematous change in the upper lateral aspect of the left lower lobe as well on the lateral basilar portion of
the left lower lobe.�������
CT oanem-ecf-vang 04/20/23-mild central lobular emphysema, 2 mm solid subpleural nodule right upper lobe stable.�������
CT chest 04/25/23-no evidence for pulmonary embolism, mild bibasilar segmental atelectasis, mediastinal and bilateral hilar lymphadenopathy, some of which are partially calcified. These are unchanged compared to recent CT chest 04/20/23 and only
minimally increased compared to 2015, prominence of main pulmonary trunk suggesting pulmonary artery hypertension, 1.3 cm left thyroid nodule unchanged 2014
CTA Chest 01-26-2024- No evidence of pulmonary embolus; Findings suggesting pneumonia. This is suggestive of Covid 19 type pneumonia. Moderate. New from 04/25/2023; findings suggesting mild emphysematous disease. Enlarged incidental right probable
adrenal mass. This would better be evaluated by a nonurgent MR examination�������
PET scan-Tyrell Jennifer-05/16/23-increased metabolic activity at the left cardiac border/left ventricle, indicating active disease-sarcoidosis, which correlates with a cardiac MRI findings, hilar and mediastinal lymphadenopathy with increased
metabolic activity indicates active disease as well, cardiac SUV ranging 2.8-3/3, mediastinal, hilar SUV ranging 2.3-3.16 and right hilar lymph node, SUV 3.06, no abnormal pulmonary uptake.
Lower extremity ultrasound 01/03/2024-very small subcutaneous edema right ankle, severe tendinosis right peroneal longus and brevis tendons
Echocardiogram-2016- EF normalized from 20 to 55 %�������
Echocardiogram 04/25/23-EF 35-40%, mild global hypokinesis, PA systolic 26-31, compared to 2022, LV is dilated and increased from 5.8-7.2 cm and the EF was decreased from 45% to 35-40%�������
Cardiac MRI 04/26/23-severe thinning akinesis and transmural enhancement of the inferolateral, inferior whitten consistent with chronic myocardial infarction, global left ventricular hypokinesis�������
Cardiac catheterization 04/25/23-nonobstructive coronary artery disease, dilated cardiomyopathy with severe posterior basilar hypokinesis and global hypokinesis.
HST 07/03/23-AHI-10, desaturation josselin 84%, 5.3 minutes spent less than 80% saturation.
Spirometry-2014- FEV1 2.5, 3-73%,FVC 3.61,83 9 BD response Ratio 70�������
PFT-2018- FEV1 3.1, 1-99%,FVC 4.66,110 TLC 103 DLOC 68�������
[id number]- FEV1 3.02-100%, FVC 4.44, 108 ratio 63 Fef 25-75 1.11, 48 33 BD response�������
[id number]- PFT- FEV1 2.73-92%,FVC 4.60, 113, ratio 57 TLC 102 DLCO 85�������
Spirometry 06/12/23-FEV1 2.48-85%, FVC 3.36-83%, no significant BD response. Mild restriction.�������
PFT 07/25/23-FEV1 2.57-87%, FVC 3.84-95%, no significant BD response, TLC 92%, RV 70%, DLCO 69%, DLCO/VA 77%. Mild obstruction and mild reduction in diffusing capacity.�������
Spirometry 09/06/23-FEV1 2.27-70%, FVC 3.93-98%, no significant BD response. Mild obstruction
Subjective Dataa
Subjective Data
Date of Service:
Date of Service: January 27, 2024
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
Subjective:
Patient seen and evaluated today at bedside. Weaned down from high flow nasal cannula to midflow nasal cannula, currently on 7 L/min saturating 88%. Patient sitting in chair no acute distress. Eager to go home. Denies chest pain, headache,
shortness of breath at rest, fevers or chills.
Review of Systems
General: Other (Negative unless mentioned above)
Objective Data
Data Reviewed
Vital Signs / I&O / Oxygen:
Vital Signs
Temp Pulse Resp BP Pulse Ox
97.4 F 77 17 101/64 95
01/27/24 04:00 01/27/24 10:00 01/27/24 10:00 01/27/24 10:00 01/27/24 10:00
Intake and Output
01/26/24 01/27/24 01/28/24
06:59 06:59 06:59
Intake Total 1440 / 1440 480 / 480 350 / 350
Output Total 3050 / 3050 1225 / 1225 550 / 550
Balance -1610 / -1610 -745 / -745 -200 / -200
SaO2 95
Nasal Cannula flow liters per 50
minute
Physical Exam
General: Respiratory Distress (negative), Comfortable, Good Appetite and Other (Obese male, appears as stated age, in no acute distress/pleasant mood)
HEENT: Normocephalic and Anicteric
Cardiovascular: Peripheral Edema (Trace lower extremity edema (L >R)) and Other (paced rhythm)
Respiratory: Wheeze (negative), Crackles ([place] in the RLL-RML; clear in the left hemithorax), Rhonchi (negative) and Non-Labored Respirations
GI: Soft, Distended (Abdominal obesity), Non Tender and Normal Bowel Sounds
Neurology: AO x 3 and Tremors (negative)
Skin: Warm, Dry and Jaundice (negative)
Labs/Micro/Reports
Lab Data
01/27/24 04:13
01/27/24 04:13
Microbiology
01/23/24 13:56 Sputum Respiratory Culture - Final
Usual Respiratory Carrie
01/23/24 13:56 Sputum Gram Stain - Final
--- NOTE | 2024-01-27 10:20 | PTCARENOTE ---
Remains oob- tolerating High Flow 50l/50% well. Sats 96%. On BSC for mod amt of soft brown stool. Pt did own am care and is currently resting back in the chair. Sats after exertion were 94-95%.Dr. Bose in earlier and spoke with pt. Pt
verbalizing how much he wants to go home and how frustrated he is that he has been here for a week. I explained that the plan is to send him home as soon as he can be on a more managable/lower amount of O2. Verbalized understanding but stated he was
still frustrated. Support given. Call marquez in reach.
--- NOTE | 2024-01-27 10:52 | W.PN.HOSP.TC ---
Today's Communication/Plan
-
Continue steroids and weaning oxygen as able
CT Chest with no PE but suspected COVID pneumonia
Appreciate Structural Engineer
Assessment / Plan
Assessment / Plan
Physical Exam
General: Not in acute distress
HEENT: Normocephalic
Respiratory: Rales (Bibasilar Rales, CTA otherwise)
Cardiac: Regular Rhythm and S1/S2
GI: Soft, Nontender, Nondistended and Normal Bowel Sounds
Musculoskeletal: No Cyanosis and No Edema
Skin: Warm and Dry
Neuro: AO x 3, Nonfocal/Grossly Intact and Central Nerve's Intact

73-year-old male with cardiopulmonary sarcoidosis (chronic prednisone), VT s/p AICD, AF on Xarelto that presented with shortness of breath that occurred when he was vacationing in [place]. Symptoms started ~8 days prior to presentation,
progressively worsened and developed shortness of breath prior to admission. Tested positive for COVID, started on IV steroids twice daily with bronchodilator MDI. Director Of Physical Therapy is following, started on incentive spirometry. Oxygen status has
been volatile, was down to 2 L then up to 6, then up to 10. Got 1 dose of Lasix on 01/20 but not usually on loop diuretic doses
#Acute hypoxemic respiratory failure
#COVID-19 infection -- symptoms 8 days ago while in [place]
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
#Immunosuppressed on Chronic Prednisone for Cardiac Sarcoidosis
#H/O COPD -- Gold class A, no exacerbations or hospital stays in 9 years
-Not candidate for Paxlovid
-Required 6 L in the ED, then needed 15 L midflow oxygen and saturated in the low 90s/upper 80s --> then 12 L midflow oxygen --> now back to 15 L --> was on high flow 50 L but now on midflow oxygen
-Receiving empiric IV antibiotics due to mildly elevated Pro-Aldo on admission
-Pulmonology consulted, recommended ICS
-Status post IV dexamethasone twice daily for COVID --> changed on 01/24/24 to Solumedrol with a higher equivalent Prednisone dosing then reduced based on CRP, appreciate Structural Engineer
-Trial of Lasix
-Continue with incentive spirometry for atelectasis
-Continue Advair and Spiriva
-Wean O2 as able, SpO2 goal 88 to 94%
-Consulted Infectious Disease, evaluation and recommendations appreciated: IV antibiotics stopped, and antiviral would likely not help at this point
-Prophylactic Bactrim restarted (given patient's chronic prednisone use)
-Consulted Cardiology given patient's significant cardiac history, COVID with significantly worsened hypoxia as of 01/22/24
-CT Chest PE with no PE but did show new moderate COVID-type pneumonia.
#Chronic HFrEF -- infiltrative cardiomyopathy, EF 35 to 40%
#Nonischemic Cardiomyopathy, EF 35-40% by echo 03/2023
#VT S/P AICD -- 2022 [employer]
#Cardiac sarcoidosis
#Secondary mitral regurgitation
-On GDMT with carvedilol, SGLT2i, Entresto
-Hold Spironolactone for now
-Seems fairly well compensated, not on standing diuretic regimen
-Appears euvolemic as of now
-Repeat echo noted
-cardio recommendations appreciated
#Paroxysmal AF -- anticoagulated with Xarelto
-Home regimen includes carvedilol, amiodarone, Xarelto
-No known history of PVI or other ablations
-Heart rate has been WNL, seems NSR
#Acute on chronic troponinemia
#Nonocclusive CAD
-Chronic troponin elevation context of myocardial infiltrative disease
-Baseline troponin likely near 0.04 though has been higher
-No chest pain, ECG without ST deviation, low suspicion for ACS on troponin trend
#H/O DVT/PE -- provoked on long hospital stay, maintained on Xarelto
#Prerenal EMEKA -- resolved; in setting of diuretics, illness; improved with diuretics held
#Basal cell skin cancer
#GERD
#Hypertension
#Dyslipidemia
#History of Mild NITA
-Trial of BiPAP with sleep if patient agrees
#Obesity -- BMI 34.5
DVT prophylaxis: Xarelto
CODE STATUS: Full code
COVID and pneumonia, requiring mid-flow oxygen in the ICU, is a high-risk encounter.
Anticipated Discharge: > 48 hours
Subjective/Interval History
-
Date of Service: January 27, 2024
Patient was seen and examined. He reported no new symptoms or complaints, he really wants to go home tomorrow, but he is still on high flow oxygen.
Objective Data
-
Labs:
Laboratory Results
01/27/24
04:13
WBC 16.7 H
Hgb 13.3
Hct 38.1 L
Plt Count 237
Sodium 135
Potassium 5.2 H
Chloride 105
Carbon Dioxide 22
BUN 53 H
Creatinine 1.3
Glucose 159 H
Calcium 8.3 L
Vital Signs:
Vital Signs
Temp Pulse Resp BP Pulse Ox
97.4 F 84 18 101/64 91
01/27/24 04:00 01/27/24 10:50 01/27/24 10:50 01/27/24 10:00 01/27/24 10:50
I&O
01/26/24 01/27/24 01/28/24
06:59 06:59 06:59
Intake Total 1440 / 1440 480 / 480 350 / 350
Output Total 3050 / 3050 1225 / 1225 550 / 550
Balance -1610 / -1610 -745 / -745 -200 / -200
--- NOTE | 2024-01-27 11:33 | PTCARENOTE ---
Remains oob in the chair. At 1045 transitioned to midflow initally 6L but currently at 7L with sats of 88-89%. Denies shortness of breath. Dr. Fletcher in to speak with pt and update on plan of care. Call marquez within reach.
--- NOTE | 2024-01-27 13:40 | PTCARENOTE ---
Remains resting oob in the chair. Good appetite for lunch. No complaints. States breathing feels ok. Has tolerated 7L midflow with sats of 88-92%- decreased at 1330 to 6L midflow. Sats 87-90%. Pt dozing a intervals. Pts at the bedside and
updated earlier. No other changes.
--- NOTE | 2024-01-27 16:30 | PTCARENOTE ---
Assessment overall is unchanged. Pt remains sitting oob in the chair watching the Olympics with his . Denies discomfort. So far has been tolerating the midflow at 6l with sats of 87-93%. BS are unchanged from earlier- sl decreased at the bases
with few base crackles. Had pt stand and take a couple of steps to stretch his legs and he admitted to feeling very sl winded/dizzy but recovered quickly. Sats dipped to 84-85% but were back up to 87-88% within 1-2 minutes of sitting back down and
currently are 89%. VS as documented. Call marquez within reach. Back care given.
--- NOTE | 2024-01-27 18:30 | PTCARENOTE ---
No changes in assessment. Good appetite for dinner. Sats 89-91%
[2024-01-27] MEDS: XARELTO 20 MG PO (20:11)
--- NOTE | 2024-01-27 20:15 | PTCARENOTE ---
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 LA IV x 2 WNL. POC discussed, call marquez with pt.
[2024-01-28] VITALS (18 sets, daily range): BP systolic 96–130; BP diastolic 57–87; PULSE 69; O2SAT 76–90
--- NOTE | 2024-01-28 03:59 | PTCARENOTE ---
no changes in pt assessment.
[2024-01-28 04:18] LABS: Hematocrit 36.2 % (39.0-52.0); Hemoglobin 12.6 g/dL (13.0-18.0); Mean Corp Hgb Conc. 34.8 g/dL (33.0-37.0); Mean Corpuscular Hgb 31.6 pg (27.0-31.0); Mean Corpuscular Volume 90.7 fL (80.0-94.0); Mean Platelet Volume 10.9 fL (7.4-10.4); Platelet Count 202 10^3/uL (130-400); Red Blood Cell Count 3.99 10^6/uL (4.70-6.10); Red Cell Dist. Width 15.3 % (11.5-14.5); White Blood Cell Count 14.8 10^3/uL (4.8-10.8)
[2024-01-28 04:40] LABS: Blood Urea Nitrogen 56 mg/dl (9-20); Calcium 8.1 mg/dl (8.4-10.2); Carbon Dioxide 21 mmol/L (22-30); Chloride 105 mmol/L (98-107); Estimated Creatinine Clearance 65 ml/min; Glucose 165 mg/dl (70-99); Magnesium 3.1 mg/dl (1.6-2.3); Phosphorus 4.6 mg/dl (2.5-4.5); Potassium 5.1 mmol/L (3.5-5.1); Sodium 132 mmol/L (135-145); eGFR > 60.00
[2024-01-28] MEDS: B COMPLEX w/VITAMIN C 1 CAPLET PO (07:30)
[2024-01-28] MEDS: PACERONE 200 MG PO (07:30)
[2024-01-28] MEDS: THERAGRAN 1 TABLET PO (07:31)
[2024-01-28] MEDS: LIPITOR 10 MG PO (07:31)
[2024-01-28] MEDS: BACTRIM 400 MG/80 MG 1 TABLET PO (07:31)
[2024-01-28] MEDS: ENTRESTO 24 MG/26 MG PO (07:31)
[2024-01-28] MEDS: ALDACTONE 12.5 MG PO (07:32)
[2024-01-28] MEDS: COREG PO (07:33)
[2024-01-28] MEDS: JARDIANCE 10 MG PO (07:34)
[2024-01-28] MEDS: SOLU-MEDROL PF 40 MG IV ×2 (07:34→20:00)
[2024-01-28] MEDS: FLUSH (NSS) 1 FLUSH IV (07:35)
[2024-01-28] MEDS: SPIRIVA RESPIMAT 2.5 MCG 2 PUFF INH (08:00)
[2024-01-28] MEDS: ProAIR HFA INHALER 2 PUFF INH ×2 (08:00→11:39)
--- NOTE | 2024-01-28 08:00 | PTCARENOTE ---
Additional assessment- Novel Respiratory precautions maintained.
--- NOTE | 2024-01-28 08:00 | PTCARENOTE ---
Rec'd pt at 0710 awake alert and oriented resting in bed. States he feels good this morning and said he got about 6 hrs of sleep. Denies pain or discomfort. States his breathing feels good. Speech is clear. Denies dizziness or headache. FERNÁNDEZ. Skin-
face is sl flushed otherwise wm and dry. Temp this am is 98 orally. Foam dressings intact to skin tears on R and L arms. Dressing change done to R great toe- had a callus removed weeks ago. No drainage. Lindsay with some scab formation and granulation.
Respirs overall are unlabored at rest but does get MARIEE. Rec'd pt on 7L midflow with sats of 91%- assisted pt oob to the chair and sats with exertion dipped to 85% once seated recovered within 2 minutes back to 89-90%. Weaned him to 6L midflow and
sats currently are 89-91%. on the 6L midflow. Pt denied feeling short of breath with exertion. Bs are decreased at the R base with few R base crackles. Occasional non-prod cough. Monitor SR. VS as noted. Held pts Entresto and Coreg this am as they
did not meet parameters currently. + pulses. DP pulses are sl weak. Tr LE edema. Abd is round with + BS. Denies nausea. Has not voided yet this am. Capped ints intact LAC and L hand. Am meds given and pt currently oob in the chair eating breakfast.
Call marquez in reach. Plan of care reviewed with pt.
[2024-01-28] MEDS: ADVAIR HFA 230/21 MCG INHALER 2 PUFF INH ×2 (08:01→20:28)
--- NOTE | 2024-01-28 08:20 | RESPNOTE ---
patient ambulated to restroom on 6L midflow and desaturated to 76% on 6L O2. patient became moderately SOB in restroom, face flushed. HR also increased from low 80s to 100-105, RR to 30. returned to chair, O2 increased to 10L for recovery. SPO2
recover to 92% on 10 L after 4 minutes. O2 weaned back to 6L while in chair. RN at bedside.
--- NOTE | 2024-01-28 09:01 | PTCARENOTE ---
Assisted to the bathroom as he needed to move his bowels and wanted to try the bathroom instead of the commode. Ambulated without difficulty. Did get MARIEE and sats with the activity decreased to 77%- once sitting back in the chair O2 increased to
10-12L midflow until his sats back up to 92-93% (took about 2 minutes) and currently weaned back to 6L and sats are 88-90%. Admitted feeling a little winded but better now. Had Brown BM and voided on the commode- unmeasured. Once back in the
chair. Complete CHG bath given. Pt brushed his teeth/ shaved and hair washed. Currently sitting in the chair watching the Olympics. Dr. Bose in and updated. Pt verbalized understanding that he is not going home today and has to be lower on his
O2 requirements. Support given. Call alma in reach.
--- NOTE | 2024-01-28 09:08 | W.PN.PUL3 ---
Today's Communication / Plan
-
High-dose steroids with Solu-Medrol --> weaned on 01/24 to 40mg IV q12hr as CRP was 16 --> re-check CRP tomorrow
Weaned down from high flow nasal cannula to midflow, currently breathing comfortably on 6 L/min midflow
Refused BiPAP
CT chest shows bilateral groundglass opacities consistent with recent COVID-19 infection with multifocal inflammatory changes -he will require extended slow prednisone taper
Follow up sputum culture (collected 01/22)
PT/OT tomorrow
Continue Advair + spiriva, and would prefer starting Trelegy versus Breztri upon discharge
Pulmonary service will continue to follow.
Assessment
-
73-year-old male with history of COPD, sarcoidosis, NITA, CAD, nonischemic cardiomyopathy and arrhythmias who recently returned from extensive trip to [place] complaining of 12-day history of cough, shortness of breath, sore throat and runny nose last
received booster Februaryovid (5 shots total) noted to have pneumonia, covid positive and pulmonary consulted for hypoxemia/pneumonia/ covid 01/21/2024.
Impression:
Acute respiratory failure with hypoxia - due to COVID-19 pneumonia in setting of COPD and atelectasis/hypoventilation
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
Community-acquired pneumonia due to COVID-19
COPD with acute exacerbation
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
Troponin elevation-0.043 on 01/20/2024
Mild anemia
Suspected right adrenal mass
Conditions present prior to admission:
Moderate COPD/centrilobular emphysema (post-BD FEV1: 2.33L / 80% via spirometry from 09/06/2023)
Former smoker quit 2014.
Pulmonary nodule-2 mm right upper lobe stable 2022
NITA.
Obesity.
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
Hypertension.
Hyperlipidemia.
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
PAF.
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
Chronic amiodarone-100 mg daily
Nonischemic CM-EF 35%/ICD.
Diastolic CHF.
CAD-nonocclusive 2014.
Moderate MR.
GERD.
Basal cell skin CA.
Left knee arthroscopy 2010. Mediastinal Skippy. Right knee surgery 2017. Basal cell left ear 2020. Cataract 2021. Melanoma right wrist 2023
Plan
Transferred to the ICU 01/22/2024 for close monitoring ---> downgraded to IMU on 01/27/2024
Respiratory decompensation related to COVID-19 blvprbkho-nsojhiasw-psqmhvmd and contributions from underlying COPD in this patient who has had 5 previous vaccinations though he is immunocompromised on chronic prednisone which puts him at risk for
covid complications.
-
As of 01/26, he has markedly improved with degree of hypoxia and O2 requirements; he remains on 6-7 L/min via midflow nasal cannula after we transitioned to high-flow nasal cannula on 01/24
Checked walking home O2 assessment today but he desaturated to 76% with activity -->. re-assess again tomorrow
He is refusing BiPAP which I was trying to use at night to help offload ventilatory effort + he has a Hx of mild NITA and does not want to wear PAP with sleep as it is 'cumbersome'
Able to speak in full sentences. Does not appear toxic.
-
Incentive spirometry encouraged
Unable to use nebulizers due to COVID/isolation.
On 01/22 I changed Decadron to SoluMedrol 40mg IV q8hr --> reduced to 40 mg IV q12hr on 01/24; reduce dose as he clinically improves
CRP level is 16 --> reduced solumedrol to 40mg IV q12hr on 01/24 --> keep at this dose until pt ready for discharge and he jomar require extended slow prednisone taper
Patient on full anticoagulation with Xarelto less likely thromboembolic event.
Negative LE duplex, however with his persistent hypoxia it is not unreasonable to rule out acute PE. CTA chest done on 01/25 showing no evidence of acute PE, and multifocal groundglass opacities with mild emphysema
Currently on Spiriva, prn albuterol; stop albuterol HFA QID; on 01/23 I added LABA/ICS with Advair 230mcg to improve cough and may improve hypoxia
- He will need to be discharged home on long-acting maintenance inhalers, preferably Trelegy versus Breztri
Repeat chest x-ray 01/24/2024- no major changes compared to prior CXR on 01/20/2024
Trial of lasix given on 01/25/2024
Continue isolation per protocol --> After 10 days from diagnosis of COVID-19 he should be able to be removed from isolation
Chronically immunosuppressed.
Abx as per ID - s/p 3 days of ceftriaxone + azithromycin - ID on board
Covid positive antigen from 01/20/2024
Negative pressure room
Not a candidate for antivirals as symptom onset-out of window, longer than 10 days of symptoms. Doubt that he will benefit from antivirals at this point.
Continue steroids as above.
With chronic immunosuppression, less likely to benefit from Actemra.
-
Doubt acute cardiac event; as stated above, given persistent hypoxia, trialed Lasix on 01/24 to see if this improves O2 saturations
Troponin peaked at 0.043 on 01/20/2024 and has since decreased to no longer need to trend given it has down trended
Normal proBNP.
Patient has cardiac sarcoid on chronic prednisone followed by Dr. Lamas locally and was to see [facility] cardiac sarcoid specialist
Prednisone taper per cardiology in the outpatient setting.
Chronic amiodarone 200 mg daily
Cardiology has been consulted correspondence reviewed.
Replete K>4, Mg>2, PO4>3
Outpatient follow-up for suspected right adrenal mass with nonemergent MRI
DVT prophylaxis-on Xarelto
Continue IMU level of care. Pulmonary service will continue to follow along.
Total time spent today was 50 minutes for this encounter. Time includes reviewing laboratory test/imaging results, reviewing pertinent medical records, obtaining and reviewing medical history, performing an appropriate exam, ordering medications,
tests and procedures. Time also includes documentation of this encounter, coordinating patient care and communicating with other healthcare professionals. Total time does not include separately billed tests performed on this date of service.

Follow-up by Dr. Segovia-has NITA, aware of associations and treatment options, considering pursuing CPAP, due for yearly low-dose lung cancer screening CT chest 03/2024, prednisone per cardiology-follows Dr. Lamas and reportedly to see cardiac
sarcoid specialist at [facility] for cardiac sarcoid-no obvious pulmonary involvement at this time
Patient was last seen by Dr. Segovia 09/06/2023 and has a follow-up appointment 01/26/2024 at 10:15 AM; will need to postpone that office visit.
Diagnostic data:
Chest x-ray 04/26/23-left chest wall defibrillator placed with lead tips in the right atrium and right ventricle������
Chest x-ray 01/20/2024-bibasilar pneumonia
CT chest. Nmk-tzkx-4-2020 -no evidence of pulmonary malignancy. Stable 2.8 cm subpleural lipoma at the posterior left base. Stable large 2 cm pre tracheal lymph node at the left koko. Minimal emphysematous changes left base. Atherosclerosis�������
CT fuhcv-sxc-teic-03-30-2022- Stability of 2 mm right upper lobe nodule. Stable since 2014. Mild subpleural parenchymal scarring with emphysematous change in the upper lateral aspect of the left lower lobe as well on the lateral basilar portion of
the left lower lobe.�������
CT ifidg-pzo-jbef 04/20/23-mild central lobular emphysema, 2 mm solid subpleural nodule right upper lobe stable.�������
CT chest 04/25/23-no evidence for pulmonary embolism, mild bibasilar segmental atelectasis, mediastinal and bilateral hilar lymphadenopathy, some of which are partially calcified. These are unchanged compared to recent CT chest 04/20/23 and only
minimally increased compared to 2014, prominence of main pulmonary trunk suggesting pulmonary artery hypertension, 1.3 cm left thyroid nodule unchanged 2014
CTA Chest 01-26-2024- No evidence of pulmonary embolus; Findings suggesting pneumonia. This is suggestive of Covid 19 type pneumonia. Moderate. New from 04/25/2023; findings suggesting mild emphysematous disease. Enlarged incidental right probable
adrenal mass. This would better be evaluated by a nonurgent MR examination�������
PET scan-Tyrlel Rodriguez-05/16/23-increased metabolic activity at the left cardiac border/left ventricle, indicating active disease-sarcoidosis, which correlates with a cardiac MRI findings, hilar and mediastinal lymphadenopathy with increased
metabolic activity indicates active disease as well, cardiac SUV ranging 2.8-3/3, mediastinal, hilar SUV ranging 2.3-3.16 and right hilar lymph node, SUV 3.06, no abnormal pulmonary uptake.
Lower extremity ultrasound 01/03/2024-very small subcutaneous edema right ankle, severe tendinosis right peroneal longus and brevis tendons
Echocardiogram-2016- EF normalized from 20 to 55 %�������
Echocardiogram 04/25/23-EF 35-40%, mild global hypokinesis, PA systolic , compared to 2022, LV is dilated and increased from 5.8-7.2 cm and the EF was decreased from 45% to 35-40%�������
Cardiac MRI 04/26/23-severe thinning akinesis and transmural enhancement of the inferolateral, inferior whitten consistent with chronic myocardial infarction, global left ventricular hypokinesis�������
Cardiac catheterization 04/25/23-nonobstructive coronary artery disease, dilated cardiomyopathy with severe posterior basilar hypokinesis and global hypokinesis.
HST 07/03/23-AHI-10, desaturation josselin 84%, 5.3 minutes spent less than 80% saturation.
Spirometry-2014- FEV1 2.5, 3-73%,FVC 3.61,83 9 BD response Ratio 70�������
PFT-2019- FEV1 3.1, 1-99%,FVC 4.66,110 TLC 103 DLOC 68�������
[id number]- FEV1 3.02-100%, FVC 4.44, 108 ratio 63 Fef 25-75 1.11, 48 33 BD response�������
[id number]- PFT- FEV1 2.73-92%,FVC 4.60, 113, ratio 57 TLC 102 DLCO 85�������
Spirometry 06/12/23-FEV1 2.48-85%, FVC 3.36-83%, no significant BD response. Mild restriction.�������
PFT 07/25/23-FEV1 2.57-87%, FVC 3.84-95%, no significant BD response, TLC 92%, RV 70%, DLCO 69%, DLCO/VA 77%. Mild obstruction and mild reduction in diffusing capacity.�������
Spirometry 09/06/23-FEV1 2.27-70%, FVC 3.93-98%, no significant BD response. Mild obstruction
Subjective Data
-
Date of Service:
Date of Service: January 28, 2024
Chief Complaint: Pulmonary Follow Up (Hypoxemic respiratory failure/PNeumonia) and Dyspnea Follow Up
Subjective:
Seen and evaluated today at bedside. Remains on 6 L/min midflow nasal cannula saturating 90%. Heart rate 74, BP 110/65 and he is breathing comfortably although still short of breath with activity. Patient walked with respiratory therapist this
morning on 6 L/min midflow and desaturated to 76%. Patient denies chest pain, shortness of breath at rest, abdominal pain, fevers or chills. , Corie, at bedside.
Review of Systems
General: Other (Negative unless mentioned above)
Objective Data
Data Reviewed
Vital Signs / I&O / Oxygen:
Vital Signs
Temp Pulse Resp BP Pulse Ox
98 F 71 16 112/73 89
01/28/24 07:45 01/28/24 11:00 01/28/24 11:00 01/28/24 10:52 01/28/24 11:00
Intake and Output
01/27/24 01/28/24 01/29/24
06:59 06:59 06:59
Intake Total 480 / 480 1150 / 1150 300 / 300
Output Total 1225 / 1225 1999 / 1999
Balance -745 / -745 -850 / -850 300 / 300
SaO2 89
Nasal Cannula flow liters per 6
minute
Physical Exam
General: Respiratory Distress (n), Comfortable, Chills (Negative) and Good Appetite
HEENT: Normocephalic, Anicteric and Moist Mucous Membranes
Cardiovascular: S1-S2 and Peripheral Edema (Negative)
Respiratory: Wheeze (Negative), Crackles (Right lower lobe/right middle lobe), Rhonchi (Negative) and Non-Labored Respirations
GI: Soft, Distended (Abdominal obesity), Non Tender and Normal Bowel Sounds
Neurology: AO x 3 and Tremors (Negative)
Skin: Warm, Dry and Jaundice (Negative)
Labs/Micro/Reports
Lab Data
01/28/24 03:53
01/28/24 03:53
Microbiology
01/23/24 13:56 Sputum Respiratory Culture - Final
Usual Respiratory Carrie
01/23/24 13:56 Sputum Gram Stain - Final
--- NOTE | 2024-01-28 11:30 | PTCARENOTE ---
Worked with PT- see PT notes. Did desat but currently is 90-92% in the chair. Pt states he is comfortable. Will try on 5L midflow. at the bedside and updated.
--- NOTE | 2024-01-28 12:22 | W.PN.HOSP.TC ---
Today's Communication/Plan
-
Oxygen requirements improving -- now with 5 to 6 L midflow saturating ~90% oxygen saturation at rest, drops while standing and walking short distance
Monitor for continued improvement over the next several days
Continue Steroids
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
Assessment / Plan
Assessment / Plan
Physical Exam
General: Not in acute distress
HEENT: Normocephalic
Respiratory: Rales (Bibasilar Rales, CTA otherwise)
Cardiac: Regular Rhythm and S1/S2
GI: Soft, Nontender, Nondistended and Normal Bowel Sounds
Musculoskeletal: No Cyanosis and No Edema
Skin: Warm and Dry
Neuro: AO x 3, Nonfocal/Grossly Intact and Central Nerve's Intact

73-year-old male with cardiopulmonary sarcoidosis (chronic prednisone), VT s/p AICD, AF on Xarelto that presented with shortness of breath that occurred when he was vacationing in [place]. Symptoms started ~8 days prior to presentation,
progressively worsened and developed shortness of breath prior to admission. Tested positive for COVID, started on IV steroids twice daily with bronchodilator MDI. Obgyn Specialist is following, started on incentive spirometry. Oxygen status has
been volatile, was down to 2 L then up to 6, then up to 10. Got 1 dose of Lasix on 01/20 but not usually on loop diuretic doses
#Acute hypoxemic respiratory failure
#COVID-19 infection -- symptoms 8 days ago while in [place]
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
#Immunosuppressed on Chronic Prednisone for Cardiac Sarcoidosis
#H/O COPD -- Gold class A, no exacerbations or hospital stays in 9 years
-Not candidate for Paxlovid
-Required 6 L in the ED, then needed 15 L midflow oxygen and saturated in the low 90s/upper 80s --> then 12 L midflow oxygen --> then back to 15 L midflow --> then on high flow 50 L but now on midflow oxygen --> TODAY on 5 L midflow cannula at rest
-Status post antibiotics
-Pulmonology consulted, recommended ICS
-Status post IV dexamethasone twice daily for COVID --> changed on 01/24/24 to Solumedrol with a higher equivalent Prednisone dosing then reduced based on CRP, appreciate Toolroom Clerk
-Trial of Lasix given
-Continue with incentive spirometry for atelectasis
-Continue Advair and Spiriva
-Wean O2 as able, SpO2 goal 88 to 94%
-Consulted Infectious Disease, evaluation and recommendations appreciated: IV antibiotics stopped, and antiviral would likely not help at this point
-Prophylactic Bactrim restarted (given patient's chronic prednisone use)
-Consulted Cardiology given patient's significant cardiac history, COVID with significantly worsened hypoxia as of 01/22/24
-CT Chest PE with no PE but did show new moderate COVID-type pneumonia.
#Chronic HFrEF -- infiltrative cardiomyopathy, EF 35 to 40%
#Nonischemic Cardiomyopathy, EF 35-40% by echo 03/2023
#VT S/P AICD -- 2022 [employer]
#Cardiac sarcoidosis
#Secondary mitral regurgitation
-On GDMT with carvedilol, SGLT2i, Entresto
-Hold Spironolactone for now
-Seems fairly well compensated, not on standing diuretic regimen
-Appears euvolemic as of now
-Repeat echo noted
-cardio recommendations appreciated: see cardio note from 01/23/24
#Hyponatremia
-Ordered urine and serum osmoles, as well as urine sodium
-Trial of PO Fluid Restriction 48 ounces per day started on January 28, 2024
#Mild Hyperkalemia
-Resolved
#Paroxysmal AF -- anticoagulated with Xarelto
-Home regimen includes carvedilol, amiodarone, Xarelto
-No known history of PVI or other ablations
-Heart rate has been WNL
#Acute on chronic troponinemia
#Nonocclusive CAD
-Chronic troponin elevation context of myocardial infiltrative disease
-Baseline troponin likely near 0.04 though has been higher
-No chest pain, ECG without ST deviation, low suspicion for ACS on troponin trend
#H/O DVT/PE -- provoked on long hospital stay, maintained on Xarelto
#Prerenal EMEKA -- resolved; in setting of diuretics, illness; improved with diuretics held
#Basal cell skin cancer
#GERD
#Hypertension
#Dyslipidemia
#History of Mild NITA
-Trial of BiPAP with sleep if patient agrees
#Obesity -- BMI 34.5
DVT prophylaxis: Xarelto
CODE STATUS: Full code
COVID and pneumonia, requiring mid-flow oxygen in the ICU, is a high-risk encounter.
Anticipated Discharge: 24 - 48 hours
Subjective/Interval History
-
Date of Service: January 28, 2024
Patient was seen and examined. He denied any new symptoms.
Objective Data
-
Labs:
Laboratory Results
01/28/24
03:53
WBC 14.8 H
Hgb 12.6 L
Hct 36.2 L
Plt Count 202
Sodium 132 L
Potassium 5.1
Chloride 105
Carbon Dioxide 21 L
BUN 56 H
Creatinine 1.2
Glucose 165 H
Calcium 8.1 L
Vital Signs:
Vital Signs
Temp Pulse Resp BP Pulse Ox
98 F 72 16 112/73 90
01/28/24 11:35 01/28/24 11:40 01/28/24 11:40 01/28/24 10:52 01/28/24 11:40
I&O
01/27/24 01/28/24 01/29/24
06:59 06:59 06:59
Intake Total 480 / 480 1150 / 1150 300 / 300
Output Total 1225 / 1225 1999
Balance -745 / -745 -850 / -850 300 / 300
--- NOTE | 2024-01-28 14:15 | PTCARENOTE ---
Good appetite for lunch. Continues to tolerate 5L nc with sats of 89-91% sitting oob in the chair. Did have pt stand again and stretch his legs and did desat of 84% but then recovered once he sat down. Gait is steady but is stiff with walking and
does get MARIEE but followed the advice of therapy and was concentrating on his breathing with moving. Call marquez remains in reach. Will continue to monitor. Covid isolation maintained
[2024-01-28 16:44] LABS: Osmolality Serum 295 mOsm/kg (275-300)
--- NOTE | 2024-01-28 17:00 | PTCARENOTE ---
Assessment is unchanged. Tolerating 5Lmidflow with sats mostly 89-91%. Monitor SR with PVC's and occasional A pacing. VS as documented. Pt voiding yellow urine. Urine studies sent as ordered. Earlier dressing changes done to R hand and L arm skin
tears as documented. Pt for transfer to IMU -pt and aware.Currently getting ready to eat dinner
[2024-01-28 17:20] LABS: Osmolality Urine 807 mOsm/kg (300-900)
[2024-01-28 17:26] LABS: Urine Sodium 13 mmol/L (30-90)
--- NOTE | 2024-01-28 18:27 | PTCARENOTE ---
Report given to IMU pt transferred via recliner chair. Good appetite for dinner. No other changes.
[2024-01-28] MEDS: COREG 6.25 MG PO (19:59)
[2024-01-28] MEDS: ENTRESTO 24 MG/26 MG 1 TAB PO (19:59)
[2024-01-28] MEDS: XARELTO 20 MG PO (21:54)
[2024-01-29] VITALS (13 sets, daily range): BP systolic 122–148; BP diastolic 64–106
--- NOTE | 2024-01-29 03:44 | PTCARENOTE ---
Addendum entered by Estella Madsen 01/29/24 03:48:
5L*
Original Note:
Pt oriented, conversant with this RN, knowledgeable of current meds. Pt able to ambulate from chair to bed with assist x1. A paced on youth nutritional monitor. VSS. 91% on 6L. Call marquez within reach. Pt denies complaints at this time.
[2024-01-29 06:03] LABS: C-Reactive Protein < 5.00 mg/L (0.0-10.00)
[2024-01-29 06:06] LABS: Blood Urea Nitrogen 51 mg/dl (9-20); Calcium 8.1 mg/dl (8.4-10.2); Carbon Dioxide 22 mmol/L (22-30); Chloride 105 mmol/L (98-107); Estimated Creatinine Clearance 65 ml/min; Glucose 146 mg/dl (70-99); Magnesium 2.9 mg/dl (1.6-2.3); Phosphorus 4.9 mg/dl (2.5-4.5); Sodium 134 mmol/L (135-145); eGFR > 60.00
[2024-01-29 06:17] LABS: Hematocrit 36.7 % (39.0-52.0); Hemoglobin 12.6 g/dL (13.0-18.0); Mean Corp Hgb Conc. 34.3 g/dL (33.0-37.0); Mean Corpuscular Hgb 31.4 pg (27.0-31.0); Mean Corpuscular Volume 91.5 fL (80.0-94.0); Mean Platelet Volume 11.3 fL (7.4-10.4); Platelet Count 160 10^3/uL (130-400); Red Blood Cell Count 4.01 10^6/uL (4.70-6.10); Red Cell Dist. Width 15.2 % (11.5-14.5)
[2024-01-29] MEDS: ADVAIR HFA 230/21 MCG INHALER 2 PUFF INH ×2 (07:25→19:40)
[2024-01-29] MEDS: SPIRIVA RESPIMAT 2.5 MCG 2 PUFF INH (07:25)
[2024-01-29] MEDS: ENTRESTO 24 MG/26 MG 1 TAB PO ×2 (08:10→19:26)
[2024-01-29] MEDS: SOLU-MEDROL PF 40 MG IV ×2 (08:11→19:26)
[2024-01-29] MEDS: ALDACTONE 12.5 MG PO (08:12)
[2024-01-29] MEDS: JARDIANCE 10 MG PO (08:12)
[2024-01-29] MEDS: LIPITOR 10 MG PO (08:13)
[2024-01-29] MEDS: PACERONE 200 MG PO (08:13)
[2024-01-29] MEDS: BACTRIM 400 MG/80 MG 1 TABLET PO (08:13)
[2024-01-29] MEDS: B COMPLEX w/VITAMIN C 1 CAPLET PO (08:13)
[2024-01-29] MEDS: THERAGRAN 1 TABLET PO (08:13)
[2024-01-29] MEDS: COREG 6.25 MG PO ×2 (08:13→19:26)
--- NOTE | 2024-01-29 10:45 | PTCARENOTE ---
Assumed care of patient this morning. Pt has no complaints this morning, denies any pain. Reports his breathing is about the same. He does appear a little dyspneic at rest. With movement, pt's SPO2 does drop into the 80s, however pleth is not
accurate at that time. Lungs were diminished at the bases. Patient got up to sit in chair for breakfast and then later in the morning walked into the bathroom to wash up. Assessment, care and VS as charted.
--- NOTE | 2024-01-29 14:57 | W.PN.HOSP.TC ---
Today's Communication/Plan
-
continue to wean off O2
Assessment / Plan
Assessment / Plan
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 Symptoms onset around 01/19/24. Managed on steroids with improving respiratory requirements. Accidental finding of R
adrenal lesion that increased in size from 1.7 to 2.3cm since 2020.
A/P:
#Acute hypoxic respiraotory failure 2/2 COVID-19 pneumonia
ID and pulmonology follows
Steroids
Bronchodilators
COmpleted 3 days of Abx
cont to wean off O2
CT neg for mPE
#Cardiac sarcoidosis on chronic steroids
#Chronic HFrEF
#Afib, unspecified
cont ppx Bactrim
Cardiology followed - advised outpatient follow up with existent specialist
COnt Lasix, xarelto
#HYponatremia, mild
follow BMP
#R adrenal lesion
NEed MRI and hormonal blood test workup by PCP - patient verbalized understanding and noted instructions in his notebook
DVT ppx Xarelto
Full code
I have spent at least 36min reviewing chart, test results, communication with consultants and direct patient care
Anticipated Discharge: > 48 hours
Subjective/Interval History
-
Date of Service: January 29, 2024
Objective Data
-
Labs:
Laboratory Results
01/29/24
05:28
WBC 13.0 H
Hgb 12.6 L
Hct 36.7 L
Plt Count 160 D
Sodium 134 L
Potassium 5.0
Chloride 105
Carbon Dioxide 22
BUN 51 H
Creatinine 1.2
Glucose 146 H
Calcium 8.1 L
Vital Signs:
Vital Signs
Temp Pulse Resp BP Pulse Ox
97.4 F 78 16 137/101 90
01/29/24 11:00 01/29/24 08:13 01/29/24 08:00 01/29/24 10:00 01/29/24 10:37
I&O
01/28/24 01/29/24 01/30/24
06:59 06:59 06:59
Intake Total 1150 / 1150 1330 / 1330 360 / 360
Output Total 1999 1450 / 1450 915 / 915
Balance -850 / -850 -120 / -120 -555 / -555
Review of Systems
-
History Source: Patient
All other systems: Reviewed and negative
Physical Exam
-
General: No Apparent Distress
HEENT: Normocephalic
Respiratory: Crackles (b/l)
GI: Soft
Musculoskeletal: No Clubbing, No Cyanosis and No Edema
Skin: Warm
Neuro: Awake, Alert, Oriented and AO x 3
Psych: Calm
--- NOTE | 2024-01-29 16:10 | W.PN.PUL3 ---
Today's Communication / Plan
-
Continue oxygen therapy, wean as able
Remains on antibiotics
Negative fluid status noted
Cardiology following
Continue steroids
Assessment
-
73-year-old male with history of COPD, sarcoidosis, NITA, CAD, nonischemic cardiomyopathy and arrhythmias who recently returned from extensive trip to [place] complaining of 12-day history of cough, shortness of breath, sore throat and runny nose last
received booster Februaryovid (5 shots total) noted to have pneumonia, covid positive and pulmonary consulted for hypoxemia/pneumonia/ covid 01/21/2024.
Impression:
Acute respiratory failure with hypoxia - due to COVID-19 pneumonia in setting of COPD and atelectasis/hypoventilation
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
Community-acquired pneumonia due to COVID-19
COPD with acute exacerbation
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
Troponin elevation-0.043 on 01/20/2024
Mild anemia
Suspected right adrenal mass
Conditions present prior to admission:
Moderate COPD/centrilobular emphysema (post-BD FEV1: 2.33L / 80% via spirometry from 09/06/2023)
Former smoker quit 2014.
Pulmonary nodule-2 mm right upper lobe stable 2022
NITA.
Obesity.
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
Hypertension.
Hyperlipidemia.
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
PAF.
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
Chronic amiodarone-100 mg daily
Nonischemic CM-EF 35%/ICD.
Diastolic CHF.
CAD-nonocclusive 2014.
Moderate MR.
GERD.
Basal cell skin CA.
Left knee arthroscopy 2010. Mediastinal Skippy. Right knee surgery 2017. Basal cell left ear 2020. Cataract 2021. Melanoma right wrist 2023
Plan
Patient appears to be improved objectively and subjectively
Oxygen requirement has improved
Chest exam is clear
Patient desaturates to 86% while on 4-5 L with leaning forward and conversation while sitting in the chair
Appears comfortable
Moving forward
Continue with current management
No changes, slow steroid taper
Patient high risk for thromboembolic disease. Remains on Xarelto
Chronic lower extremity edema noted
Doppler negative for DVT
Continue to wean oxygen
Patient remains in isolation
Chronically immunosuppressed.
Abx as per ID - s/p 3 days of ceftriaxone + azithromycin - ID following
Covid positive antigen from 01/20/2024
With chronic immunosuppression, less likely to benefit from Actemra.
Doubt acute cardiac event; as stated above, given persistent hypoxia, trialed Lasix on 01/24 to see if this improves O2 saturations
Troponin peaked at 0.043 on 01/20/2024 and has since decreased to no longer need to trend given it has down trended
Normal proBNP.
Patient has cardiac sarcoid on chronic prednisone followed by Dr. Lamas locally and was to see [facility] cardiac sarcoid specialist
Prednisone taper per cardiology in the outpatient setting.
Chronic amiodarone 200 mg daily
Cardiology following
Outpatient follow-up for suspected right adrenal mass with nonemergent MRI
DVT prophylaxis-on Xarelto
Reviewed with patient and at bedside.

Follow-up by Dr. Segovia-has NITA, aware of associations and treatment options, considering pursuing CPAP, due for yearly low-dose lung cancer screening CT chest 03/2024, prednisone per cardiology-follows Dr. Lamas and reportedly to see cardiac
sarcoid specialist at [facility] for cardiac sarcoid-no obvious pulmonary involvement at this time
Patient was last seen by Dr. Segovia 09/06/2023 and has a follow-up appointment 01/26/2024 at 10:15 AM; will need to postpone that office visit.
Diagnostic data:
Chest x-ray 04/26/23-left chest wall defibrillator placed with lead tips in the right atrium and right ventricle������
Chest x-ray 01/20/2024-bibasilar pneumonia
CT chest. Mjf-cqzc-3-2020 -no evidence of pulmonary malignancy. Stable 2.8 cm subpleural lipoma at the posterior left base. Stable large 2 cm pre tracheal lymph node at the left koko. Minimal emphysematous changes left base. Atherosclerosis�������
CT docgn-maf-sjdf-03-30-2022- Stability of 2 mm right upper lobe nodule. Stable since 2014. Mild subpleural parenchymal scarring with emphysematous change in the upper lateral aspect of the left lower lobe as well on the lateral basilar portion of
the left lower lobe.�������
CT kcixy-oyh-kbil 04/20/23-mild central lobular emphysema, 2 mm solid subpleural nodule right upper lobe stable.�������
CT chest 04/25/23-no evidence for pulmonary embolism, mild bibasilar segmental atelectasis, mediastinal and bilateral hilar lymphadenopathy, some of which are partially calcified. These are unchanged compared to recent CT chest 04/20/23 and only
minimally increased compared to 2014, prominence of main pulmonary trunk suggesting pulmonary artery hypertension, 1.3 cm left thyroid nodule unchanged 2014
CTA Chest 01-26-2024- No evidence of pulmonary embolus; Findings suggesting pneumonia. This is suggestive of Covid 19 type pneumonia. Moderate. New from 04/25/2023; findings suggesting mild emphysematous disease. Enlarged incidental right probable
adrenal mass. This would better be evaluated by a nonurgent MR examination�������
PET scan-Tyrell Rodriguez-05/16/23-increased metabolic activity at the left cardiac border/left ventricle, indicating active disease-sarcoidosis, which correlates with a cardiac MRI findings, hilar and mediastinal lymphadenopathy with increased
metabolic activity indicates active disease as well, cardiac SUV ranging 2.8-3/3, mediastinal, hilar SUV ranging 2.3-3.16 and right hilar lymph node, SUV 3.06, no abnormal pulmonary uptake.
Lower extremity ultrasound 01/03/2024-very small subcutaneous edema right ankle, severe tendinosis right peroneal longus and brevis tendons
Echocardiogram-2016- EF normalized from 20 to 55 %�������
Echocardiogram 04/25/23-EF 35-40%, mild global hypokinesis, PA systolic 26-31, compared to 2022, LV is dilated and increased from 5.8-7.2 cm and the EF was decreased from 45% to 35-40%�������
Cardiac MRI 04/26/23-severe thinning akinesis and transmural enhancement of the inferolateral, inferior whitten consistent with chronic myocardial infarction, global left ventricular hypokinesis�������
Cardiac catheterization 04/25/23-nonobstructive coronary artery disease, dilated cardiomyopathy with severe posterior basilar hypokinesis and global hypokinesis.
HST 07/03/23-AHI-10, desaturation josselin 84%, 5.3 minutes spent less than 80% saturation.
Spirometry-2014- FEV1 2.5, 3-73%,FVC 3.61,83 9 BD response Ratio 70�������
PFT-2018- FEV1 3.1, 1-99%,FVC 4.66,110 TLC 103 DLOC 68�������
[id number]- FEV1 3.02-100%, FVC 4.44, 108 ratio 63 Fef 25-75 1.11, 48 33 BD response�������
[id number]- PFT- FEV1 2.73-92%,FVC 4.60, 113, ratio 57 TLC 102 DLCO 85�������
Spirometry 06/12/23-FEV1 2.48-85%, FVC 3.36-83%, no significant BD response. Mild restriction.�������
PFT 07/25/23-FEV1 2.57-87%, FVC 3.84-95%, no significant BD response, TLC 92%, RV 70%, DLCO 69%, DLCO/VA 77%. Mild obstruction and mild reduction in diffusing capacity.�������
Spirometry 09/06/23-FEV1 2.27-70%, FVC 3.93-98%, no significant BD response. Mild obstruction
Subjective Data
-
Date of Service:
Date of Service: January 29, 2024
Chief Complaint: Pulmonary Follow Up (Hypoxemic respiratory failure/PNeumonia) and Dyspnea Follow Up
Subjective:
Late entry. Patient much improved. Oxygen requirement has been weaned down to 5 L. Patient denies chest pain, nausea, abdominal pain. Mild lightheadedness with positional changes. at bedside
Objective Data
Data Reviewed
Vital Signs / I&O / Oxygen:
Vital Signs
Temp Pulse Resp BP Pulse Ox
97.5 F 70 22 126/64 88
01/29/24 15:00 01/29/24 14:00 01/29/24 14:00 01/29/24 14:00 01/29/24 14:00
Intake and Output
01/28/24 01/29/24 01/30/24
06:59 06:59 06:59
Intake Total 1150 / 1150 1330 / 1330 360 / 360
Output Total 1999 / 1999 1450 / 1450 915 / 915
Balance -850 / -850 -120 / -120 -555 / -555
SaO2 88
Nasal Cannula flow liters per 6
minute
Physical Exam
General: Respiratory Distress (n), Comfortable, Chills (Negative) and Good Appetite
HEENT: Normocephalic, Anicteric and Moist Mucous Membranes
Cardiovascular: S1-S2 and Peripheral Edema (Negative)
Respiratory: Wheeze (Negative), Crackles (Right lower lobe/right middle lobe), Rhonchi (Negative) and Non-Labored Respirations
GI: Soft, Distended (Abdominal obesity), Non Tender and Normal Bowel Sounds
Neurology: Awake and Alert
Skin: Warm, Dry and Jaundice (Negative)
Labs/Micro/Reports
Lab Data
01/29/24 05:28
01/29/24 05:28
--- NOTE | 2024-01-29 20:43 | PTCARENOTE ---
Pt able to ambulate from chair to bed with assistx1. Pt desat to 79% with ambulation on 6L, but quickly recovered to 92% once back in bed with encouragement of deep breathing. Pt occasionally NSR, currently A paced with PVCs. Denies SOB, other
complaints at this time. Call marquez within reach.
[2024-01-29] MEDS: XARELTO 20 MG PO (21:41)
[2024-01-30] VITALS (16 sets, daily range): BP systolic 110–148; BP diastolic 50–92; PULSE 75–76; O2SAT 90–92
--- NOTE | 2024-01-30 05:13 | PTCARENOTE ---
Pt c/o urge to use bathroom, became very SOB with ambulation, tachypneic, struggling to catch breath. Once in bathroom, pt desat, became very weak, continued with labored respirations. This RN sat pt in chair to recover, wheeled the chair next to
the bed, and the pt was able to pivot back into bed once his SaO2 recovered. Pt began talking with staff and expressing concern about going home, requests to speak with case management about options regarding visiting nurses
[2024-01-30] MEDS: SPIRIVA RESPIMAT 2.5 MCG 2 PUFF INH (08:04)
[2024-01-30] MEDS: ADVAIR HFA 230/21 MCG INHALER 2 PUFF INH ×2 (08:04→20:28)
[2024-01-30] MEDS: ProAIR HFA INHALER 2 PUFF INH ×2 (08:04→20:28)
--- NOTE | 2024-01-30 08:26 | W.PN.PUL3 ---
Today's Communication / Plan
-
Chest x-ray today
Continue with efforts to wean oxygen
Defer diuresis to cardiology
Abdominal imaging and workup for rectal bleeding
Xarelto held, start mechanical prophylaxis
Assessment
-
73-year-old male with history of COPD, sarcoidosis, NITA, CAD, nonischemic cardiomyopathy and arrhythmias who recently returned from extensive trip to [place] complaining of 12-day history of cough, shortness of breath, sore throat and runny nose last
received booster Februaryovid (5 shots total) noted to have pneumonia, covid positive and pulmonary consulted for hypoxemia/pneumonia/ covid 01/21/2024.
Impression:
Acute respiratory failure with hypoxia - due to COVID-19 pneumonia in setting of COPD and atelectasis/hypoventilation
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
Community-acquired pneumonia due to COVID-19
COPD with acute exacerbation
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
Troponin elevation-0.043 on 01/20/2024
Mild anemia
Suspected right adrenal mass
Conditions present prior to admission:
Moderate COPD/centrilobular emphysema (post-BD FEV1: 2.33L / 80% via spirometry from 09/06/2023)
Former smoker quit 2014.
Pulmonary nodule-2 mm right upper lobe stable 2022
NITA.
Obesity.
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
Hypertension.
Hyperlipidemia.
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
PAF.
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
Chronic amiodarone-100 mg daily
Nonischemic CM-EF 35%/ICD.
Diastolic CHF.
CAD-nonocclusive 2014.
Moderate MR.
GERD.
Basal cell skin CA.
Left knee arthroscopy 2010. Mediastinal Skippy. Right knee surgery 2017. Basal cell left ear 2020. Cataract 2021. Melanoma right wrist 2023
Plan/recommendations
Patient appears to be improved objectively and subjectively
Still remains on 6 L overnight, 93%
Chest exam is clear
Patient desaturates briefly per nursing with ambulation, recovers quickly
Appears comfortable
Episode of rectal bleeding noted
Moving forward
Continue with current management
No changes, slow steroid taper
Patient high risk for thromboembolic disease. Remains on Xarelto
Chronic lower extremity edema noted
Doppler negative for DVT
Rectal bleeding noted. Abdominal imaging pending per primary service. N.p.o.
Continue to wean oxygen
Chest x-ray today
Patient remains in isolation
Chronically immunosuppressed steroids for cardiac sarcoid.
Abx as per ID - s/p 3 days of ceftriaxone + azithromycin - ID has signed off
Now remains on Bactrim prophylaxis
Covid positive antigen from 01/20/2024
Can likely discontinue isolation. Defer to primary service
Doubt acute cardiac event; as stated above, given persistent hypoxia, trialed Lasix on 01/24 to see if this improves O2 saturations
Troponin peaked at 0.043 on 01/20/2024 and has since decreased to no longer need to trend given it has down trended
Normal proBNP.
Patient has cardiac sarcoid on chronic prednisone followed by Dr. Lamas locally and was to see [facility] cardiac sarcoid specialist
Prednisone taper per cardiology in the outpatient setting.
Echo 01/22/2024: EF 40%, normal RV size and function, PA pressure 35
Chronic amiodarone 200 mg daily
Cardiology following
Outpatient follow-up for suspected right adrenal mass with nonemergent MRI
DVT prophylaxis-on Xarelto. This may need to be readdressed given rectal bleeding. Mechanical prophylaxis in the interim
Reviewed with patient and nursing

Follow-up by Dr. Segovia-has NITA, aware of associations and treatment options, considering pursuing CPAP, due for yearly low-dose lung cancer screening CT chest 03/2024, prednisone per cardiology-follows Dr. Lamas and reportedly to see cardiac
sarcoid specialist at [facility] for cardiac sarcoid-no obvious pulmonary involvement at this time
Patient was last seen by Dr. Segovia 09/06/2023 and has a follow-up appointment 01/26/2024 at 10:15 AM; will need to postpone that office visit.
Diagnostic data:
Chest x-ray 04/26/23-left chest wall defibrillator placed with lead tips in the right atrium and right ventricle������
Chest x-ray 01/20/2024-bibasilar pneumonia
CT chest. Fpt-orov-6-2020 -no evidence of pulmonary malignancy. Stable 2.8 cm subpleural lipoma at the posterior left base. Stable large 2 cm pre tracheal lymph node at the left koko. Minimal emphysematous changes left base. Atherosclerosis�������
CT lctsb-yjd-dtiu-03-30-2022- Stability of 2 mm right upper lobe nodule. Stable since 2014. Mild subpleural parenchymal scarring with emphysematous change in the upper lateral aspect of the left lower lobe as well on the lateral basilar portion of
the left lower lobe.�������
CT vqvry-onh-dbfm 04/20/23-mild central lobular emphysema, 2 mm solid subpleural nodule right upper lobe stable.�������
CT chest 04/25/23-no evidence for pulmonary embolism, mild bibasilar segmental atelectasis, mediastinal and bilateral hilar lymphadenopathy, some of which are partially calcified. These are unchanged compared to recent CT chest 04/20/23 and only
minimally increased compared to 2015, prominence of main pulmonary trunk suggesting pulmonary artery hypertension, 1.3 cm left thyroid nodule unchanged 2015
CTA Chest 01-26-2024- No evidence of pulmonary embolus; Findings suggesting pneumonia. This is suggestive of Covid 19 type pneumonia. Moderate. New from 04/25/2023; findings suggesting mild emphysematous disease. Enlarged incidental right probable
adrenal mass. This would better be evaluated by a nonurgent MR examination�������
PET scan-Tyrell Rodriguez-05/16/23-increased metabolic activity at the left cardiac border/left ventricle, indicating active disease-sarcoidosis, which correlates with a cardiac MRI findings, hilar and mediastinal lymphadenopathy with increased
metabolic activity indicates active disease as well, cardiac SUV ranging 2.8-3/3, mediastinal, hilar SUV ranging 2.3-3.16 and right hilar lymph node, SUV 3.06, no abnormal pulmonary uptake.
Lower extremity ultrasound 01/03/2024-very small subcutaneous edema right ankle, severe tendinosis right peroneal longus and brevis tendons
Echocardiogram-2016- EF normalized from 20 to 55 %�������
Echocardiogram 04/25/23-EF 35-40%, mild global hypokinesis, PA systolic 26-31, compared to 2022, LV is dilated and increased from 5.8-7.2 cm and the EF was decreased from 45% to 35-40%�������
Cardiac MRI 04/26/23-severe thinning akinesis and transmural enhancement of the inferolateral, inferior whitten consistent with chronic myocardial infarction, global left ventricular hypokinesis�������
Cardiac catheterization 04/25/23-nonobstructive coronary artery disease, dilated cardiomyopathy with severe posterior basilar hypokinesis and global hypokinesis.
HST 07/03/23-AHI-10, desaturation josselin 84%, 5.3 minutes spent less than 80% saturation.
Spirometry-2014- FEV1 2.5, 3-73%,FVC 3.61,83 9 BD response Ratio 70�������
PFT-2018- FEV1 3.1, 1-99%,FVC 4.66,110 TLC 103 DLOC 68�������
[id number]- FEV1 3.02-100%, FVC 4.44, 108 ratio 63 Fef 25-75 1.11, 48 33 BD response�������
[id number]- PFT- FEV1 2.73-92%,FVC 4.60, 113, ratio 57 TLC 102 DLCO 85�������
Spirometry 06/12/23-FEV1 2.48-85%, FVC 3.36-83%, no significant BD response. Mild restriction.�������
PFT 07/25/23-FEV1 2.57-87%, FVC 3.84-95%, no significant BD response, TLC 92%, RV 70%, DLCO 69%, DLCO/VA 77%. Mild obstruction and mild reduction in diffusing capacity.�������
Spirometry 09/06/23-FEV1 2.27-70%, FVC 3.93-98%, no significant BD response. Mild obstruction
Subjective Data
-
Date of Service:
Date of Service: January 30, 2024
Chief Complaint: Pulmonary Follow Up (Hypoxemic respiratory failure/PNeumonia) and Dyspnea Follow Up
Subjective:
Patient continues to improve subjectively. Still remains on 5 L. Episode of rectal bleeding noted. Denies chest pain, mopped assist. Appears comfortable sitting in chair.
Objective Data
Data Reviewed
Vital Signs / I&O / Oxygen:
Vital Signs
Temp Pulse Resp BP Pulse Ox
97.8 F 60 16 119/68 92
01/30/24 03:02 01/30/24 06:00 01/30/24 06:00 01/30/24 06:00 01/30/24 06:00
Intake and Output
01/29/24 01/30/24 01/31/24
06:59 06:59 06:59
Intake Total 1330 / 1330 360 / 360
Output Total 1450 / 1450 2765 / 2765
Balance -120 / -120 -2405 / -2405
SaO2 92
Nasal Cannula flow liters per 6
minute
Physical Exam
General: Comfortable
HEENT: Normocephalic, Anicteric and Moist Mucous Membranes
Cardiovascular: S1-S2, Regular Rhythm, Murmur (n), Rub (n) and Peripheral Edema (tr)
Respiratory: Wheeze (Negative), Crackles (n), Rhonchi (Negative), Non-Labored Respirations and Stridor (n)
GI: Soft, Non Distended, Non Tender and Normal Bowel Sounds
Neurology: Awake and Alert
Skin: Warm, Dry, Cyanosis (n) and Jaundice (Negative)
[2024-01-30] MEDS: PACERONE 200 MG PO (08:50)
[2024-01-30] MEDS: ENTRESTO 24 MG/26 MG 1 TAB PO (08:50)
[2024-01-30] MEDS: ALDACTONE 12.5 MG PO (08:50)
[2024-01-30] MEDS: JARDIANCE 10 MG PO (08:50)
[2024-01-30] MEDS: BACTRIM 400 MG/80 MG 1 TABLET PO (08:50)
[2024-01-30] MEDS: B COMPLEX w/VITAMIN C 1 CAPLET PO (08:51)
[2024-01-30] MEDS: LIPITOR 10 MG PO (08:51)
[2024-01-30] MEDS: SOLU-MEDROL PF 40 MG IV ×2 (08:51→19:33)
[2024-01-30] MEDS: THERAGRAN 1 TABLET PO (08:51)
[2024-01-30] MEDS: COREG 6.25 MG PO ×2 (08:51→19:33)
[2024-01-30 09:29] LABS: Hemoglobin 13.7 g/dL (13.0-18.0); Mean Corp Hgb Conc. 34.3 g/dL (33.0-37.0); Mean Corpuscular Hgb 30.6 pg (27.0-31.0); Mean Corpuscular Volume 89.5 fL (80.0-94.0); Mean Platelet Volume 11.8 fL (7.4-10.4); Platelet Count 211 10^3/uL (130-400); Red Blood Cell Count 4.47 10^6/uL (4.70-6.10); Red Cell Dist. Width 15.2 % (11.5-14.5); White Blood Cell Count 23.1 10^3/uL (4.8-10.8)
[2024-01-30] MEDS: PROTONIX IV 80 MG IV (09:42)
[2024-01-30] MEDS: NSS (PRESERVATIVE FREE) 20 ML IV (09:42)
[2024-01-30] MEDS: PROTONIX 100 IV (09:42)
--- NOTE | 2024-01-30 09:55 | PTCARENOTE ---
Patient with bright red blood and clots in bowel movement this morning. Patient reports last BM around 0500 was brown. C/o MARIEE, slight dizziness. VSS. MD notified, GI to see. CT and CXR done. Labs sent. Protonix gtt started. Will closely monitor.
[2024-01-30 10:18] LABS: ALT (SGPT) 32 U/L (0-50); AST (SGOT) 26 U/L (17-59); Albumin 3.7 g/dl (3.5-5.0); Alkaline Phosphatase 74 U/L (38-126); Blood Urea Nitrogen 46 mg/dl (9-20); Calcium 8.4 mg/dl (8.4-10.2); Carbon Dioxide 19 mmol/L (22-30); Chloride 106 mmol/L (98-107); Estimated Creatinine Clearance 65 ml/min; Glucose 157 mg/dl (70-99); Potassium 5.5 mmol/L (3.5-5.1); Sodium 135 mmol/L (135-145); Total Bilirubin 1.4 mg/dl (0.2-1.3); eGFR > 60.00
--- NOTE | 2024-01-30 10:30 | W.PN.HOSP.TC ---
Today's Communication/Plan
-
PPI, NPO, GI consult
hold Xarelto, Entresto, Spironolactone
Cardio consult
Assessment / Plan
Assessment / Plan
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 Symptoms onset around 01/19/24. Managed on steroids with improving respiratory requirements. Accidental finding of R
adrenal lesion that increased in size from 1.7 to 2.3cm since 2020.
Developed BRBPR on 01/30/24
A/P:
#Acute hypoxic respiratory failure 2/2 COVID-19 pneumonia
ID and pulmonology follows
Steroids as per pulm - slow taper
Bronchodilators
Completed 3 days of Abx
cont to wean off O2
CT neg for PE
#Lower GIB
BRBPR on 01/30/24
PPI, hold Xarelto
CTA abd/pelvis without signs of bleeding
GI consult and NPO
#Hyperkalemia
Hold Entresto and Spironolactone
recall Cardiology
#Cardiac sarcoidosis on chronic steroids
#Chronic HFrEF
#Afib, unspecified
cont ppx Bactrim
Cardiology followed - advised outpatient follow up with existent specialist
COnt Lasix, xarelto
#HYponatremia, mild
follow BMP
#R adrenal lesion
NEed MRI and hormonal blood test workup by PCP - patient verbalized understanding and noted instructions in his notebook
DVT ppx Xarelto
Full code
I have spent at least 66min reviewing chart, test results, communication with consultants and direct patient care
Anticipated Discharge: > 48 hours
Subjective/Interval History
-
Date of Service: January 30, 2024
Objective Data
-
Labs:
Laboratory Results
08/06/24 08/06/24 08/06/24
09:02 14:30 20:30
WBC 23.1 H
Hgb 13.7 Pending Pending
Hct 40.0 Pending Pending
Plt Count 211 D
Sodium 135
Potassium 5.5 H
Chloride 106
Carbon Dioxide 19 L
BUN 46 H
Creatinine 1.2
Glucose 157 H
Calcium 8.4
Total Bilirubin 1.4 H
AST 26
ALT 32
Alkaline Phosphatase 74
Vital Signs:
Vital Signs
Temp Pulse Resp BP Pulse Ox
97.8 F 88 21 131/50 90
01/30/24 03:02 01/30/24 10:00 01/30/24 09:01 01/30/24 10:00 01/30/24 10:00
I&O
01/29/24 01/30/24 01/31/24
06:59 06:59 06:59
Intake Total 1330 / 1330 360 / 360
Output Total 1450 / 1450 2765 / 2765
Balance -120 / -120 -2405 / -2405
Physical Exam
-
General: Well Developed and Well Nourished
HEENT: Normocephalic
Respiratory: Crackles (velcro-like b/l)
Cardiac: Regular Rhythm
GI: Soft, Nontender and Nondistended
Musculoskeletal: No Clubbing, No Cyanosis, Edema, Right Lower Extrem and Edema, Left Lower Extrem
Skin: Warm
Neuro: Awake, Alert, Oriented and AO x 3
Psych: Calm
--- NOTE | 2024-01-30 11:20 | W.PN.CARDCBS ---
Addendum entered and electronically signed by Enzo Padgett MD 01/30/24 14:33:
I saw and examined the patient.
The TRANSCRIPT EVALUATOR or PA's note was reviewed and I agree with the note.
Comment: General: Well developed, well nourished in NAD.
Neck: Supple, no JVD, HJR, carotids +2 B/L, no bruits bilaterally.
Heart: Non displaced PMI, RRR, no murmurs, No S3, S4, no rubs.
Lungs: Scattered rhonchi throughout
Extremities: No clubbing, cyanosis or edema bilaterally.
Neuro: Grossly nonfocal, awake, alert and oriented x3.
Chest x-ray with worsening pneumonia. Discussed with primary service and pulmonary and they feel he is improving. Lasix Entresto and Aldactone on hold due to hyperkalemia and with GI bleed. May need to restart Lasix. Xarelto on hold with GI
bleeding.
Original Note:
Today's Communication / Plan
-
holding xarelto
holding lasix, entresto, aldactone
follow volume status
follow K
Impression / Plan
-
Primary Fish Packer: Dr. Fam
Dr. Ced Mora: ([place] cardiac sarcoid), phone [phone]
Impression:
Presented 01/20/2024 with cough, shortness of breath, runny nose and sore throat x 12 days
Respiratory failure-acute hypoxemic due to community-acquired pneumonia
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
COPD with mild acute exacerbation
Abnormal troponin, 0.043
EMEKA
Hyperglycemia
Short run of atrial fibrillation earlier in admission
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
H/o Syncope due to VT s/p shock x1 in ES 04/24/23
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
H/o Ventricular tachycardia
Status post Medtronic DC ICD placement 04/26/2023
Nonischemic Cardiomyopathy, EF 35-40% by echo 03/2023
Nonobstructive CAD by cath 2022
Hypertension
Hyperlipidemia
PVCs
Morbid obesity
COPD/Former tobacco use
Daily ETOH use (3-4 hard liquors/day)
Hx PE 1983, 1999, on chronic xarelto
Chronic OAC with xarelto
Cardiac cath 04/25/2023: LM: Luminal Irregularities, Ramus: Normal, LCx: normal, RCA: LI, LVEF: 30% global HK and posterior basal HK. 1+MR
Cath 2014: nonobstructive CAD
ECHO 09/2022: EF 45-50%, mild concentric LVH, focal calcification of anterior mitral valve leaflet, mild MR, trace TR, PAP 39 mmHg
ECHO 04/25/23: EF 35 to 40%, basal to mid inferior and inferolateral akinesis, mild global hypokinesis, stage I diastolic dysfunction, moderate eccentric MR, mild TR, PAP 26 to 31 mmHg, mildly dilated aortic root
Cardiac MRI 04/26/2023: Severe thickening and transmural enhancement in the inferolateral and inferior whitten of the left ventricle CW previous MD. Focal subendocardial enhancement 50 to 75% of myocardial thickness. Global LV HK.
PET scan-[facility]-05/16/23-increased metabolic activity at the left cardiac border/left ventricle, indicating active disease-sarcoidosis, which correlates with a cardiac MRI findings, hilar and mediastinal lymphadenopathy with increased
metabolic activity indicates active disease as well, cardiac SUV ranging 2.8-3/3, mediastinal, hilar SUV ranging 2.3-3.16 and right hilar lymph node, SUV 3.06, no abnormal pulmonary uptake
PET scan revealed myocardial involvement and mild hilar involvement but no pulmonary parenchymal involvement of sarcoidosis.
ECHO 01/22/24: EF visually 35 to 40%, EF 40 to 45% by Dunbar's, inferior wall hypokinetic and basal inferolateral wall akinetic, mild LVH, ICD noted, mild to moderate MR, trace TR, PAP 30 to 35 mmHg, no significant change compared to prior echo
IMPRESSION:
-he remains on 6L NC, continue to wean as able. continue supportive care of covid infection, remains on precautions at this time
-Had episode of painless bright red blood per rectum this morning, large amount with clots per nursing. Xarelto on hold. Follow serial H&H
-Also with hyperkalemia of 5.5 overnight. Spironolactone and Entresto presently on hold (was on both prior to admission). continue coreg, jardiance
-Lasix placed on hold for now in setting of GI bleeding. Will follow volume status. BPs stable
-Remains in sinus rhythm on review of telemetry overnight. He did have 2 minutes of A-fib the week of 01/13 by device interrogation. He is chronically on anticoagulation due to history of multiple PEs. continue amiodarone for history of VT.
-echo 01/21 with results as above
-d/w nursing
HPI 01/22/2024:
Patient is a 73 yo M with PMH of nonischemic cardiomyopathy with EF 35 to 40% by echo/cath 04/2023, hypertension, hyperlipidemia, PVCs, VT s/p Medtronic dual-chamber ICD, cardiac sarcoidosis on chronic steroids, history of PE on chronic
anticoagulation with Xarelto who presented 01/20/2024 to [facility] with cough, shortness of breath, sore throat and runny nose. Patient was recently in [place] for a prolonged trip when he developed the symptoms x ~2 weeks. On presentation
to the emergency department patient was found to be hypoxic requiring oxygen and tested positive for COVID an imaging showed evidence of pneumonia. He was not a remdesivir candidate and therefore was was started on IV steroids, bronchodilator
therapy, and IV antibiotic. Troponin 0.043 at peak repeat now undetectable. EKG on presentation showed sinus rhythm. Patient developed worsening oxygen demand requiring transfer to ICU on 01/22/2024. Concern for possible heart failure prompting
cardiology consult. proBNP 259 on 01/20/2024 with with repeat 369 01/22/2024. Patient did get 1 dose of IV Lasix on 01/21/2024.
Progress Note - Fish Packer
Subjective
Date of Service: January 30, 2024
with painless BRBPR this AM.
Objective
Labs:
01/30/24 09:02
Labs
Hgb 13.7 g/dL (13.0-18.0) 01/30/24 09:02
Hct 40.0 % (39.0-52.0) 01/30/24 09:02
Plt Count 211 10^3/uL (130-400) D 01/30/24 09:02
PT 21.3 Sec (11.4-14.6) H 01/22/24 12:19
INR 1.87 01/22/24 12:19
APTT 33.9 Sec (23.4-35.0) 01/22/24 12:19
Sodium 135 mmol/L (135-145) 01/30/24 09:02
Potassium 5.5 mmol/L (3.5-5.1) H 01/30/24 09:02
BUN 46 mg/dl (9-20) H 01/30/24 09:02
Creatinine 1.2 mg/dL (0.7-1.3) 01/30/24 09:02
Glucose 157 mg/dl (70-99) H 01/30/24 09:02
Vital Signs and I&O:
Vital Signs
Temp Pulse Resp BP Pulse Ox
97.4 F 88 21 131/50 90
01/30/24 07:40 01/30/24 10:00 01/30/24 09:01 01/30/24 10:00 01/30/24 10:00
Vital Signs
Temp Pulse Resp BP Pulse Ox
97.4 F 88 21 131/50 90
01/30/24 07:40 01/30/24 10:00 01/30/24 09:01 01/30/24 10:00 01/30/24 10:00
Intake & Output
01/28/24 01/29/24 01/30/24 01/31/24
07:59 07:59 07:59 07:59
Intake Total 1150 / 1150 1330 / 1330 600 / 600
Output Total 1700 / 1700 1999 221 / 221
Balance -550 / -550 -670 / -670 -1615 / -1615
--- NOTE | 2024-01-30 11:33 | CON.GI ---
Addendum entered and electronically signed by Yudelka Wang MD 01/30/24 17:29:
I saw and examined the patient.
The TITLE LAWYER or PA's note was reviewed and I agree with the note.
Comment: 73-year-old male with history of CAD, atrial fibrillation on Xarelto, CHF, COPD, cardiac sarcoid on prednisone presenting with cough and shortness of breath,COVID-positive, monitored in IMU but had 1 episode of bright blood per rectum with
bowel movements and GI consult called in.
Denies any abdominal or rectal pain. Denies any constipation or diarrhea but has been having some pushing with bowel movements and today had bright blood with brown stool in the toilet bowl. Intermittent episodes of wipe type rectal bleeding in
the past but not this significant. Colonoscopy in 2019, cecal and transverse colon polyps removed, repeat suggested in 2022 but had not had a colonoscopy yet. Hemoglobin stable at 13.4. No further bleeding after this morning.
Rectal exam showing brown stool and old dark blood on the glove.
-Likely cause of painless rectal bleeding is hemorrhoidal
Brown stool on rectal exam. Normal hemoglobin.
Currently tolerating low-cholesterol diet.
Monitor H&H.If no further bleeding and no drop in hemoglobin, okay to restart Xarelto.
Agree with Anusol HC suppository twice a day.
Okay for Protonix 40 mg p.o. daily
Needs outpatient colonoscopy with Dr. Levy. If overt active bleeding with drop in hemoglobin, will consider inpatient colonoscopy.
Original Note:
Consultation
-
Date/Time Consultation Requested: 01/30/24 0815
Date/Time Consultation Performed: 01/30/24 1400
Requesting Provider: Georgi Randall MD
Performing Provider: KENTON Bhandari, Yudelka Wang MD
Reason for Consultation: rectal bleeding
Medical History
Chief Complaint / HPI
Chief Complaint: rectal bleeding
History of Present Illness:
Pt is a 73yo with multiple med problems- cardiac sarcoidosis on prednisone, afib PE/DVT on Xarelto, VT with AICD, CAD, CHF, CM with decreased EF 35-40%, COPD, HTN, hyperlipidemia, mild to mod MR, adrenal lesion, obesity presents with onset of cough
with shortness of breath 01/19 with concern for covid infection he was noted today with hyperkalemia and also passed formed stool then slightly loose stool with blood and asked to evaluate. hx colonoscopy 2013 with multiple polyps - SS polyps,
adenomatous, TA and hyperplastic polyps. 06/2019 with 4 mm polyp cecum 10mm polyp TC clip placed, diverticulosis and tattoo seen TC bx with SS adenoma in cecum and TC. Pt was due follow up in 2022.
Pt state no further bleeding throughout today. He states regular stools since admission and minimal constipation or straining. He denies dysphagia, GERD, nausea, vomiting, abdominal pain, diarrhea, or black stools. No hx EGD in past. Minimal
lightheadedness with walking.
Past Medical History
Past Medical History: Arrhythmias (afib on Xarelto ), CAD (with non occlusive disease on cath 2014), Cancer (basal cell CA), CHF (non ischemic CM with EF 35-40% on echo), COPD, GERD, HTN, Hypercholesterolemia, Valvular Disease (MR mild to moderate )
and Other (cardiac sarcoidosis on Prednisone, covid PNA, adrenal lesion, former smoker, PE/DVT Xarelto, ETOH use, monomorphic VT with cardioversion 2022, osteoarthritis, obesity )
Past Surgical History: Cardiac (s/p AICD)
Social History
Tobacco: Former Smoker
Alcohol: Occasional (5 drinks per week)
Drug: None
Personal:
Living: With Family
Employment: Retired
Family History
Family History: Other (no family hx colon CA or GI issues )
Allergies / Home Medications
Allergy/AdvReac Type Severity Reaction Status Date / Time
No Known Allergies Allergy Verified 01/20/24 10:07
�Medication �Instructions �Recorded
carvedilol 6.25 mg tablet 6.25 mg PO BID ##60 01/14/15
atorvastatin 10 mg tablet 10 mg PO DAILY High Cholesterol 04/24/23
rivaroxaban 20 mg tablet (Xarelto) 20 mg PO HS Blood Clot 04/24/23
Prevention/Tx
vitamin B complex 1 tab PO DAILY Supplement 04/24/23
empagliflozin 10 mg tablet 10 mg PO DAILY HF #30 tabs 04/27/23
(Jardiance)
aflibercept 8 mg/0.07 mL 8 mg intravitreal Q4W Eye Condition 01/20/24
intravitreal solution for
injection ([facility]ylea HD)
amiodarone 200 mg tablet (Pacerone) 200 mg PO DAILY VTach 01/20/24
peg 400-propylene glycol (PF) 0.4 1 drp BOTH EYES Q6HPRN PRN dry eyes 01/20/24
%-0.3 % eye drops in a dropperette
(Systane (PF))
prednisone 10 mg tablet 40 mg PO DAILY Anti-Inflammatory 01/20/24
sacubitril 24 mg-valsartan 26 mg 1 tab PO BID Heart Failure 01/20/24
tablet (Entresto)
spironolactone 25 mg tablet 12.5 mg PO DAILY Blood Pressure 01/20/24
sulfamethoxazole 400 1 tab PO DAILY Infection 01/20/24
mg-trimethoprim 80 mg tablet
(Bactrim)
therapeutic multivitamin 1 tab PO DAILY Supplement 01/20/24
Review of Systems
-
History Source: Patient and Family
Constitutional: Reports Fever (on admission )
EENT: Reports No Symptoms
Respiratory: Reports Cough (improved ) and Trouble Breathing (improving)
Cardiac: Reports No Symptoms
Abdomen/GI: Reports Bloody Stools (brown stool with red blood and clot around stool)
: Reports No Symptoms
Musculoskeletal: Reports Other (weakness with current illness )
Skin: Reports No Symptoms
Neurological: Reports Dizzy (minimal )
Endocrine: Reports No Symptoms
Hematologic/Lymphatic: Reports Bleeding
Vital Signs
Temp Pulse Resp BP Pulse Ox
97.4 F 88 21 131/50 90
01/30/24 07:40 01/30/24 10:00 01/30/24 09:01 01/30/24 10:00 01/30/24 10:00
Physical Exam
Exam
General: Well Developed, Well Nourished and No Apparent Distress
HEENT: Normocephalic, Anicteric and Moist Mucous Membranes
Respiratory: Clear
Cardiac: Regular Rhythm and Peripheral Edema
GI: Soft, Non Tender and Non Distended
Rectal: Other (pt declined as out of bed )
Musculoskeletal: No Clubbing and No Cyanosis
Skin: Warm and Dry
Neuro: Awake, Alert and AO x 3
Psych: Calm
Results
WBC 23.1 10^3/uL (4.8-10.8) H 01/30/24 09:02
Hgb 13.7 g/dL (13.0-18.0) 01/30/24 09:02
Hct 40.0 % (39.0-52.0) 01/30/24 09:02
MCV 89.5 fL (80.0-94.0) 01/30/24 09:02
Plt Count 211 10^3/uL (130-400) D 01/30/24 09:02
Absolute Neuts (auto) 12.0 10^3/uL (1.4-6.5) H 01/24/24 03:25
PT 21.3 Sec (11.4-14.6) H 01/22/24 12:19
INR 1.87 01/22/24 12:19
APTT 33.9 Sec (23.4-35.0) 01/22/24 12:19
Sodium 135 mmol/L (135-145) 01/30/24 09:02
Potassium 5.5 mmol/L (3.5-5.1) H 01/30/24 09:02
Chloride 106 mmol/L (98-107) 01/30/24 09:02
Carbon Dioxide 19 mmol/L (22-30) L 01/30/24 09:02
BUN 46 mg/dl (9-20) H 01/30/24 09:02
Creatinine 1.2 mg/dL (0.7-1.3) 01/30/24 09:02
Calcium 8.4 mg/dl (8.4-10.2) 01/30/24 09:02
Total Bilirubin 1.4 mg/dl (0.2-1.3) H 01/30/24 09:02
AST 26 U/L (17-59) 01/30/24 09:02
ALT 32 U/L (0-50) 01/30/24 09:02
Alkaline Phosphatase 74 U/L (38-126) 01/30/24 09:02
Diagnostic Image Results:
Prior GI Procedures:
EGD: none
Colonoscopy: 2013 [place] with multiple polyps - SS polyps, adenomatous, TA and hyperplastic polyps.
06/2019 with 4 mm polyp cecum 10mm polyp TC clip placed, diverticulosis and tattoo seen TC bx with SS adenoma in cecum and TC. Pt was due follow up in 2022.
Assessment / Plan
-
Pt is a 73yo with multiple med problems- cardiac sarcoidosis on prednisone, afib PE/DVT on Xarelto, VT with AICD, CAD, CHF, CM with decreased EF 35-40%, COPD, HTN, hyperlipidemia, mild to mod MR, adrenal lesion, obesity presents with onset of cough
with shortness of breath 01/19 with concern for covid infection he was noted today with hyperkalemia and also passed formed stool then slightly loose stool with blood and asked to evaluate. hx colonoscopy 2013 with multiple polyps - SS polyps,
adenomatous, TA and hyperplastic polyps. 06/2019 with 4 mm polyp cecum 10mm polyp TC clip placed, diverticulosis and tattoo seen TC bx with SS adenoma in cecum and TC. Pt was due follow up in 2022.
-rectal bleeding
-covid + PNA with hypoxemia now improving
-hyperkalemia
-elevated BUN with some chronic elevation
-abnormal troponin
-afib/PE/DVT on Xarelto
-hyperglycemia
other med problems:
cardiac sarcoid on chronic steroids
-VT with AICD in place
-AICD
-CAD
-CHF
-CM with decreased EF
-COPD
-HTN
-mild to mod MR
-adrenal lesion
-obesity
PLAN:
etiology of bleeding related to local source - hemorrhoids as noted after BM this am with second stool with formed brown stool and blood around stools vs other-- some elevated BUN but less likely upper source with red color noted
pt currently declined rectal exam but reviewed with nursing to get back to bed prior to Dr. Wang evaluation
trend hbg currently normal at 13.7 and stool record
Xarelto hold -- monitor ability to resume in AM if no further bleeding
Pt will need eventual colonoscopy inpatient if further bleeding vs OP when improved from covid infection
PPI gtt added this am with hx chronic steroid use
add preparation H PRN
ok for clear if no further bleeding ok for ADA diet later today
will follow
family updated
-
-
Thank you for consultation and allowing me to participate in the patient's care. Please call the ethylbenzene converter operator GI physician during the after hours with any questions or concerns.
[2024-01-30 13:42] LABS: Direct Bilirubin 0.3 mg/dl (0.0-0.4); LDH 488 U/L (120-246)
[2024-01-30 16:58] LABS: Hematocrit 38.9 % (39.0-52.0); Hemoglobin 13.4 g/dL (13.0-18.0)
--- NOTE | 2024-01-30 17:07 | CM ---
Patient with Dx Acute hypoxic respiratory failure 2/2 COVID-19 pneumonia, Lower GIB. O2 6L midflow. Receiving IV Solumedrol. PT & OT recommend skilled rehab.
Spoke with patient's Corie; says patient will not want to go to SNF for rehab. The patient will go home with assisting him, and he will be staying on 2nd floor bedroom with 10 stairs. Discussed [facility] for SN/PT/OT and agrees - she
chooses [facility]. aware patient is on O2 at present.
Referral to [facility] Liaison.
Patient will benefit from stair training prior to d/c.
Plan home with [facility].
[2024-01-30] MEDS: ANUSOL HC 25 MG RECTAL (19:33)
[2024-01-30 23:02] LABS: Hematocrit 37.7 % (39.0-52.0); Hemoglobin 13.2 g/dL (13.0-18.0)
--- NOTE | 2024-01-30 23:26 | PTCARENOTE ---
Pt desat while sleeping to 86% on 4L, increased to 6L with improvement to 89%. Paper face mask in place d/t mouth breathing. Pt encouraged to take deep breaths through his nose, denies SOB. Call marquez within reach.
[2024-01-31] VITALS (13 sets, daily range): BP systolic 101–130; BP diastolic 64–84; O2SAT 70–92
--- NOTE | 2024-01-31 06:11 | PTCARENOTE ---
Pt insists on going into bathroom to have BM. Ambulates well to bathroom with no drop in SaO2. Pt had brown stool with bright red blood. Upon returning from bathroom, pt incredibly MARIEE, SOB, this RN put BSC behind pt for him to sit down because he
was too weak to ambulate back to bed. SaO2 dropped to 74% on 6L. This RN coached breathing with improvement. Pt finally able to ambulate a few steps into bed and fully recover. Once back in bed, pt requests to be OOB to chair. This RN moved chair as
close to bed as possible, pt pivoted from bed to chair with SaO2 drop to 83%. Once in chair and deep breathing, SaO2 improved to 93%. This RN was able to wean O2 to 4L once pt resting comfortably in chair with sat maintaining 90%.
[2024-01-31 06:47] LABS: Hemoglobin 13.9 g/dL (13.0-18.0); Mean Corp Hgb Conc. 33.9 g/dL (33.0-37.0); Mean Corpuscular Hgb 31.1 pg (27.0-31.0); Mean Corpuscular Volume 91.7 fL (80.0-94.0); Mean Platelet Volume 11.9 fL (7.4-10.4); Platelet Count 205 10^3/uL (130-400); Red Blood Cell Count 4.47 10^6/uL (4.70-6.10); Red Cell Dist. Width 15.3 % (11.5-14.5); White Blood Cell Count 23.3 10^3/uL (4.8-10.8)
[2024-01-31 06:51] LABS: Erythrocyte Sed Rate 25 mm/hour (0-20)
[2024-01-31 07:12] LABS: Procalcitonin 0.08 ng/ml (0.0-0.25)
--- NOTE | 2024-01-31 07:13 | W.PN.PUL3 ---
Today's Communication / Plan
-
Continue with efforts to wean oxygen
No change in steroids
GI prophylaxis
Out of bed to chair, ambulate
Mechanical DVT prophylaxis
Assessment
-
73-year-old male with history of COPD, sarcoidosis, NITA, CAD, nonischemic cardiomyopathy and arrhythmias who recently returned from extensive trip to [place] complaining of 12-day history of cough, shortness of breath, sore throat and runny nose last
received booster Februaryovid (5 shots total) noted to have pneumonia, covid positive and pulmonary consulted for hypoxemia/pneumonia/ covid 01/21/2024.
Impression:
Acute respiratory failure with hypoxia - due to COVID-19 pneumonia in setting of COPD and atelectasis/hypoventilation
COVID-19 Ag positive - symptom onset nearly 2 weeks [employer] SCRU[employer]
Community-acquired pneumonia due to COVID-19
COPD with acute exacerbation
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
Troponin elevation-0.043 on 01/20/2024
Mild anemia
Suspected right adrenal mass
Conditions present prior to admission:
Moderate COPD/centrilobular emphysema (post-BD FEV1: 2.33L / 80% via spirometry from 09/06/2023)
Former smoker quit 2014.
Pulmonary nodule-2 mm right upper lobe stable 2022
NITA.
Obesity.
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
Hypertension.
Hyperlipidemia.
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
PAF.
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
Chronic amiodarone-100 mg daily
Nonischemic CM-EF 35%/ICD.
Diastolic CHF.
CAD-nonocclusive 2014.
Moderate MR.
GERD.
Basal cell skin CA.
Left knee arthroscopy 2010. Mediastinal Skippy. Right knee surgery 2017. Basal cell left ear 2020. Cataract 2021. Melanoma right wrist 2023
Plan/recommendations
Patient appears to be improved objectively and subjectively
Presently on 3 L, 93 to 96%
Chest exam is clear
Patient desaturates briefly per nursing with ambulation, recovers quickly
Appears comfortable
Episode of rectal bleeding noted, has not recurred
Negative fluid status noted
Moving forward
Continue with current management
No changes, slow steroid taper
The patient is on 40 mg of prednisone as outpatient
Patient high risk for thromboembolic disease. Remains on Xarelto
Chronic lower extremity edema noted
Doppler negative for DVT
Rectal bleeding noted. Abdominal imaging pending per primary service. N.p.o.
Continue to wean oxygen
Suspect chest x-ray is lagging clinical improvement
Patient remains in isolation
Chronically immunosuppressed steroids for cardiac sarcoid.
Abx as per ID - s/p 3 days of ceftriaxone + azithromycin - ID has signed off
Now remains on Bactrim prophylaxis
Covid positive antigen from 01/20/2024
Can likely discontinue isolation. Defer to primary service
Negative fluid status continues
Echo 01/22/2024: EF 40%, normal RV size and function, PA pressure 35
Chronic amiodarone 200 mg daily
Cardiology following
Outpatient follow-up for suspected right adrenal mass with nonemergent MRI
DVT prophylaxis-on Xarelto. This may need to be readdressed given rectal bleeding. Mechanical prophylaxis in the interim
Reviewed with patient and nursing

Follow-up by Dr. Segovia-has NITA, aware of associations and treatment options, considering pursuing CPAP, due for yearly low-dose lung cancer screening CT chest 03/2024, prednisone per cardiology-follows Dr. Lamas and reportedly to see cardiac
sarcoid specialist at [facility] for cardiac sarcoid-no obvious pulmonary involvement at this time
Patient was last seen by Dr. Segovia 09/06/2023 and has a follow-up appointment 01/26/2024 at 10:15 AM; will need to postpone that office visit.
Diagnostic data:
Chest x-ray 04/26/23-left chest wall defibrillator placed with lead tips in the right atrium and right ventricle������
Chest x-ray 01/20/2024-bibasilar pneumonia
CT chest. Xlc-brcu-9-2020 -no evidence of pulmonary malignancy. Stable 2.8 cm subpleural lipoma at the posterior left base. Stable large 2 cm pre tracheal lymph node at the left koko. Minimal emphysematous changes left base. Atherosclerosis�������
CT lzdsj-asb-kygd-03-30-2022- Stability of 2 mm right upper lobe nodule. Stable since 2014. Mild subpleural parenchymal scarring with emphysematous change in the upper lateral aspect of the left lower lobe as well on the lateral basilar portion of
the left lower lobe.�������
CT cyidh-uia-yqis 04/20/23-mild central lobular emphysema, 2 mm solid subpleural nodule right upper lobe stable.�������
CT chest 04/25/23-no evidence for pulmonary embolism, mild bibasilar segmental atelectasis, mediastinal and bilateral hilar lymphadenopathy, some of which are partially calcified. These are unchanged compared to recent CT chest 04/20/23 and only
minimally increased compared to 2015, prominence of main pulmonary trunk suggesting pulmonary artery hypertension, 1.3 cm left thyroid nodule unchanged 2014
CTA Chest 01-26-2024- No evidence of pulmonary embolus; Findings suggesting pneumonia. This is suggestive of Covid 19 type pneumonia. Moderate. New from 04/25/2023; findings suggesting mild emphysematous disease. Enlarged incidental right probable
adrenal mass. This would better be evaluated by a nonurgent MR examination�������
PET scan-[facility]-05/16/23-increased metabolic activity at the left cardiac border/left ventricle, indicating active disease-sarcoidosis, which correlates with a cardiac MRI findings, hilar and mediastinal lymphadenopathy with increased
metabolic activity indicates active disease as well, cardiac SUV ranging 2.8-3/3, mediastinal, hilar SUV ranging 2.3-3.16 and right hilar lymph node, SUV 3.06, no abnormal pulmonary uptake.
Lower extremity ultrasound 01/03/2024-very small subcutaneous edema right ankle, severe tendinosis right peroneal longus and brevis tendons
Echocardiogram-2016- EF normalized from 20 to 55 %�������
Echocardiogram 04/25/23-EF 35-40%, mild global hypokinesis, PA systolic 26-31, compared to 2022, LV is dilated and increased from 5.8-7.2 cm and the EF was decreased from 45% to 35-40%�������
Cardiac MRI 04/26/23-severe thinning akinesis and transmural enhancement of the inferolateral, inferior whitten consistent with chronic myocardial infarction, global left ventricular hypokinesis�������
Cardiac catheterization 04/25/23-nonobstructive coronary artery disease, dilated cardiomyopathy with severe posterior basilar hypokinesis and global hypokinesis.
HST 07/03/23-AHI-10, desaturation josselin 84%, 5.3 minutes spent less than 80% saturation.
Spirometry-2014- FEV1 2.5, 3-73%,FVC 3.61,83 9 BD response Ratio 70�������
PFT-2018- FEV1 3.1, 1-99%,FVC 4.66,110 TLC 103 DLOC 68�������
[id number]- FEV1 3.02-100%, FVC 4.44, 108 ratio 63 Fef 25-75 1.11, 48 33 BD response�������
[id number]- PFT- FEV1 2.73-92%,FVC 4.60, 113, ratio 57 TLC 102 DLCO 85�������
Spirometry 06/12/23-FEV1 2.48-85%, FVC 3.36-83%, no significant BD response. Mild restriction.�������
PFT 07/25/23-FEV1 2.57-87%, FVC 3.84-95%, no significant BD response, TLC 92%, RV 70%, DLCO 69%, DLCO/VA 77%. Mild obstruction and mild reduction in diffusing capacity.�������
Spirometry 09/06/23-FEV1 2.27-70%, FVC 3.93-98%, no significant BD response. Mild obstruction
Subjective Data
-
Date of Service:
Date of Service: January 31, 2024
Chief Complaint: Pulmonary Follow Up (Hypoxemic respiratory failure/PNeumonia) and Dyspnea Follow Up
Subjective:
Patient is subjectively improved. Will wean down to 3 L, 92% sitting in the chair. Still with mild lightheadedness but feels improved. at bedside. Denies chest pain, significant cough
Objective Data
Data Reviewed
Vital Signs / I&O / Oxygen:
Vital Signs
Temp Pulse Resp BP Pulse Ox
97.8 F 80 18 112/66 89
01/31/24 03:53 01/31/24 06:05 01/31/24 06:05 01/31/24 06:05 01/31/24 06:41
Intake and Output
01/30/24 01/31/24 02/01/24
06:59 06:59 06:59
Intake Total 360 / 360 240 / 240
Output Total 2765 / 2765 1700 / 1700
Balance -2405 / -2405 -1460 / -1460
SaO2 89
Nasal Cannula flow liters per 6
minute
Physical Exam
General: Comfortable
HEENT: Normocephalic, Anicteric and Moist Mucous Membranes
Cardiovascular: S1-S2, Regular Rhythm, Murmur (n), Rub (n) and Peripheral Edema (tr)
Respiratory: Wheeze (Negative), Crackles (n), Rhonchi (Negative), Non-Labored Respirations and Stridor (n)
GI: Soft, Non Distended, Non Tender and Normal Bowel Sounds
Neurology: Awake and Alert
Skin: Warm, Dry, Cyanosis (n) and Jaundice (Negative)
Labs/Micro/Reports
Lab Data
01/31/24 05:57
[2024-01-31 07:16] LABS: AST (SGOT) 34 U/L (17-59); Albumin 3.8 g/dl (3.5-5.0); Alkaline Phosphatase 71 U/L (38-126); Blood Urea Nitrogen 44 mg/dl (9-20); Calcium 8.5 mg/dl (8.4-10.2); Carbon Dioxide 18 mmol/L (22-30); Chloride 107 mmol/L (98-107); Estimated Creatinine Clearance 65 ml/min; Glucose 143 mg/dl (70-99); Potassium 5.6 mmol/L (3.5-5.1); Sodium 137 mmol/L (135-145); Total Bilirubin 1.2 mg/dl (0.2-1.3); eGFR > 60.00
[2024-01-31 07:17] LABS: % Basophils 0.4 % (0-2); % Immature Granulocytes 5.1 % (0-0.5); % Lymphocytes 2.4 % (20.5-51.1); % Monocytes 3.2 % (1.7-9.3); % Neutrophils 88.9 % (42.2-75.2); Absolute Basophils 0.1 10^3/uL (0-0.2); Absolute Immature Granulocytes 1.2 10^3/uL (0-0.05); Absolute Lymphocytes 0.6 10^3/uL (1.2-3.4); Absolute Monocytes 0.8 10^3/uL (0.1-0.6); Absolute Neutrophils 20.7 10^3/uL (1.4-6.5); Nucleated Red Blood Cells % 0 % (-)
[2024-01-31 07:21] LABS: C-Reactive Protein < 5.00 mg/L (0.0-10.00)
[2024-01-31 07:33] LABS: ALT (SGPT) 37 U/L (0-50)
[2024-01-31] MEDS: SPIRIVA RESPIMAT 2.5 MCG 2 PUFF INH (07:51)
[2024-01-31] MEDS: ADVAIR HFA 230/21 MCG INHALER 2 PUFF INH ×2 (07:51→19:55)
[2024-01-31] MEDS: ProAIR HFA INHALER 2 PUFF INH (07:52)
[2024-01-31] MEDS: ANUSOL HC RECTAL ×3 (08:00→20:08)
[2024-01-31] MEDS: BACTRIM 400 MG/80 MG 1 TABLET PO (08:45)
[2024-01-31] MEDS: B COMPLEX w/VITAMIN C 1 CAPLET PO (08:46)
[2024-01-31] MEDS: JARDIANCE 10 MG PO (08:46)
[2024-01-31] MEDS: PACERONE 200 MG PO (08:47)
[2024-01-31] MEDS: PROTONIX 40 MG PO (08:47)
[2024-01-31] MEDS: COREG 6.25 MG PO ×2 (08:47→19:57)
[2024-01-31] MEDS: LIPITOR 10 MG PO (08:48)
[2024-01-31] MEDS: SOLU-MEDROL PF 40 MG IV ×2 (08:50→19:57)
[2024-01-31] MEDS: THERAGRAN 1 TABLET PO (08:51)
--- NOTE | 2024-01-31 09:37 | W.PN.CARDCBS ---
Addendum entered and electronically signed by Guanako Fernandez DO 01/31/24 15:37:
I saw and examined the patient.
The Sole Cementer's note was reviewed and I agree with the note.
Comment:
Plan:
Continue IV Lasix diuresis.
Monitor potassium with hyperkalemia. Entresto and Aldactone held. Consider resuming Aldactone next 24 hours pending potassium level.
Wean O2 as able.
Follow H/H
As per pulmonary, patient may no longer require isolation
Continue amiodarone for history of VT.
Discussed with primary service.
Original Note:
Today's Communication / Plan
-
IV lasix 20mg daily
follow K. continue to hold entresto/aldactone
wean supp O2 as able
follow hgb/BMs.
Impression / Plan
-
Primary Keeler Polygraph Operator: Dr. Fam
Dr. Ced Mora: ([facility] cardiac sarcoid), phone [phone]
Impression:
Presented 01/20/2024 with cough, shortness of breath, runny nose and sore throat x 12 days
Respiratory failure-acute hypoxemic due to community-acquired pneumonia
Covid positive-symptom onset nearly 2 weeks [employer]
COPD with mild acute exacerbation
Abnormal troponin, 0.043
EMEKA
Hyperglycemia
Short run of atrial fibrillation earlier in admission
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
H/o Syncope due to VT s/p shock x1 in ES 04/24/23
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
H/o Ventricular tachycardia
Status post Medtronic DC ICD placement 04/26/2023
Nonischemic Cardiomyopathy, EF 35-40% by echo 03/2023
Nonobstructive CAD by cath 2022
Hypertension
Hyperlipidemia
PVCs
Morbid obesity
COPD/Former tobacco use
Daily ETOH use (3-4 hard liquors/day)
Hx PE 1983, 1999, on chronic xarelto
Chronic OAC with xarelto
Cardiac cath 04/25/2023: LM: Luminal Irregularities, Ramus: Normal, LCx: normal, RCA: LI, LVEF: 30% global HK and posterior basal HK. 1+MR
Cath 2014: nonobstructive CAD
ECHO 09/2022: EF 45-50%, mild concentric LVH, focal calcification of anterior mitral valve leaflet, mild MR, trace TR, PAP 39 mmHg
ECHO 04/25/23: EF 35 to 40%, basal to mid inferior and inferolateral akinesis, mild global hypokinesis, stage I diastolic dysfunction, moderate eccentric MR, mild TR, PAP 26 to 31 mmHg, mildly dilated aortic root
Cardiac MRI 04/26/2023: Severe thickening and transmural enhancement in the inferolateral and inferior whitten of the left ventricle CW previous FL. Focal subendocardial enhancement 50 to 75% of myocardial thickness. Global LV HK.
PET scan-[facility]-05/16/23-increased metabolic activity at the left cardiac border/left ventricle, indicating active disease-sarcoidosis, which correlates with a cardiac MRI findings, hilar and mediastinal lymphadenopathy with increased
metabolic activity indicates active disease as well, cardiac SUV ranging 2.8-3/3, mediastinal, hilar SUV ranging 2.3-3.16 and right hilar lymph node, SUV 3.06, no abnormal pulmonary uptake
PET scan revealed myocardial involvement and mild hilar involvement but no pulmonary parenchymal involvement of sarcoidosis.
ECHO 01/22/24: EF visually 35 to 40%, EF 40 to 45% by Dunbar's, inferior wall hypokinetic and basal inferolateral wall akinetic, mild LVH, ICD noted, mild to moderate MR, trace TR, PAP 30 to 35 mmHg, no significant change compared to prior echo
IMPRESSION:
-He continues to desat with ambulation, however has been able to be weaned to 4 L nasal cannula at rest. Continue supportive care of COVID infection. Remains on isolation precautions
-He had BM yesterday with BRBPR and again this morning by review of nursing notes. Seen by bret CRUZ most likely to be hemorrhoidal. Hemoglobin remains stable at 13.9. Xarelto remains on hold
-proBNP 364 from 01/25. He has been given 3 doses of IV Lasix throughout his 11-day hospital course. He has lower extremity edema. As blood pressure remains stable, will place on IV Lasix 20 mg daily and assess response. Was not on diuretic as
outpatient, however likely will continue moving forward as with CM EF 35-40% by echo 01/21.
-Continues with hyperkalemia, 5.6 on 01/30. Spironolactone and Entresto presently on hold. Continue Coreg and Jardiance
-He remains in sinus/apaced rhythm on review of telemetry overnight. He did have 2 minutes of A-fib the week of 01/13 by device interrogation. He is chronically on anticoagulation due to history of multiple PEs, presently on hold. continue
amiodarone for history of VT.
-d/w hospitalist
HPI 01/22/2024:
Patient is a 73 yo M with PMH of nonischemic cardiomyopathy with EF 35 to 40% by echo/cath 04/2023, hypertension, hyperlipidemia, PVCs, VT s/p Medtronic dual-chamber ICD, cardiac sarcoidosis on chronic steroids, history of PE on chronic
anticoagulation with Xarelto who presented 01/20/2024 to [facility] with cough, shortness of breath, sore throat and runny nose. Patient was recently in [place] for a prolonged trip when he developed the symptoms x ~2 weeks. On presentation
to the emergency department patient was found to be hypoxic requiring oxygen and tested positive for COVID an imaging showed evidence of pneumonia. He was not a remdesivir candidate and therefore was was started on IV steroids, bronchodilator
therapy, and IV antibiotic. Troponin 0.043 at peak repeat now undetectable. EKG on presentation showed sinus rhythm. Patient developed worsening oxygen demand requiring transfer to ICU on 01/22/2024. Concern for possible heart failure prompting
cardiology consult. proBNP 259 on 01/20/2024 with with repeat 369 01/22/2024. Patient did get 1 dose of IV Lasix on 01/21/2024.
Progress Note - Keeler Polygraph Operator
Subjective
Date of Service: January 31, 2024
with BRB with BM again this AM.
Objective
Labs:
01/31/24 05:57
01/31/24 05:57
Labs
Hgb 13.9 g/dL (13.0-18.0) 01/31/24 05:57
Hct 41.0 % (39.0-52.0) 01/31/24 05:57
Plt Count 205 10^3/uL (130-400) 01/31/24 05:57
PT 21.3 Sec (11.4-14.6) H 01/22/24 12:19
INR 1.87 01/22/24 12:19
APTT 33.9 Sec (23.4-35.0) 01/22/24 12:19
Sodium 137 mmol/L (135-145) 01/31/24 05:57
Potassium 5.6 mmol/L (3.5-5.1) H 01/31/24 05:57
BUN 44 mg/dl (9-20) H 01/31/24 05:57
Creatinine 1.2 mg/dL (0.7-1.3) 01/31/24 05:57
Glucose 143 mg/dl (70-99) H 01/31/24 05:57
Vital Signs and I&O:
Vital Signs
Temp Pulse Resp BP Pulse Ox
98.0 F 63 16 118/76 92
01/31/24 07:58 01/31/24 08:03 01/31/24 08:03 01/31/24 08:03 01/31/24 08:03
Vital Signs
Temp Pulse Resp BP Pulse Ox
98.0 F 63 16 118/76 92
01/31/24 07:58 01/31/24 08:03 01/31/24 08:03 01/31/24 08:03 01/31/24 08:03
Intake & Output
01/29/24 01/30/24 01/31/24 02/01/24
07:59 07:59 07:59 07:59
Intake Total 1330 / 1330 600 / 600
Output Total 1999 2215 / 2215 1700 / 1700
Balance -670 / -670 -1615 / -1615 -1700 / -1700
[2024-01-31] MEDS: LASIX 20 MG IV (10:30)
--- NOTE | 2024-01-31 10:47 | PTCARENOTE ---
Received on 3L NC this am- transitioning oob to chair pt sao2 alarming at 70%- O2 increased to 6L and recovered in 8 min back to 92%. Color dusky, can verbalize no distress noted. LCTA, appetite good. Monitor I/O.
--- NOTE | 2024-01-31 11:39 | W.PN.HOSP.TC ---
Today's Communication/Plan
-
still overnight blood in the stool - cont to hold Xarelto
Furosemide as per Cardio
Cont to wean off O2
Assessment / Plan
Assessment / Plan
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 Symptoms onset around 01/19/24. Managed on steroids with improving respiratory requirements. Accidental finding of R
adrenal lesion that increased in size from 1.7 to 2.3cm since 2020.
Developed BRBPR on 01/30/24 and hyperkalemia
A/P:
#Acute hypoxic respiratory failure 2/2 COVID-19 pneumonia
ID and pulmonology follows
Steroids as per pulm - slow taper
Bronchodilators
Completed 3 days of Abx
cont to wean off O2
CT neg for PE
#Lower GIB most likely hemorrhoidal
Suppositories
BRBPR on 01/30/24
PPI, hold Xarelto
CTA abd/pelvis without signs of bleeding
GI consult:
#Hyperkalemia
Hold Entresto and Spironolactone
recall Cardiology
watch CMP since pt is on Bactrim
#Cardiac sarcoidosis on chronic steroids
#Chronic HFrEF
#Afib, unspecified
cont ppx Bactrim
Cardiology followed - advised outpatient follow up with existent specialist
COnt Lasix, xarelto
#Hyponatremia, mild
follow BMP
#R adrenal lesion
Need MRI and hormonal blood test workup by PCP - patient verbalized understanding and noted instructions in his notebook
DVT ppx SCDs
Full code
I have spent at least 62min reviewing chart, test results, communication with consultants and direct patient care
Anticipated Discharge: > 48 hours
Subjective/Interval History
-
Date of Service: January 31, 2024
Objective Data
-
Labs:
Laboratory Results
01/31/24 01/31/24
02:30 05:57
WBC 23.3 H
Hgb Cancelled 13.9
Hct Cancelled 41.0
Plt Count 205
Sodium 137
Potassium 5.6 H
Chloride 107
Carbon Dioxide 18 L
BUN 44 H
Creatinine 1.2
Glucose 143 H
Calcium 8.5
Total Bilirubin 1.2
AST 34
ALT 37
Alkaline Phosphatase 71
Vital Signs:
Vital Signs
Temp Pulse Resp BP Pulse Ox
97.8 F 70 24 114/65 94
01/31/24 11:29 01/31/24 10:51 01/31/24 10:51 01/31/24 10:51 01/31/24 10:51
I&O
01/30/24 01/31/24 02/01/24
06:59 06:59 06:59
Intake Total 360 / 360 240 / 240
Output Total 2765 / 2765 1700 / 1700 350 / 350
Balance -2405 / -2405 -1460 / -1460 -350 / -350
Review of Systems
-
History Source: Patient
All other systems: Reviewed and negative
Physical Exam
-
General: Well Developed and No Apparent Distress
HEENT: Normocephalic
Respiratory: Clear to Auscultation
Cardiac: Regular Rhythm
GI: Soft, Nontender and Nondistended
Genito-urinary: No Costovertebral Tender
Musculoskeletal: No Clubbing, No Cyanosis and No Edema
Skin: Warm
Neuro: Awake, Alert, Oriented and AO x 3
Psych: Calm
--- NOTE | 2024-01-31 11:59 | VNURNOTE ---
Chart reviewed, reached out to patient's , no answer. Left message requesting call back. [facility] Watch[facility] 02 needs.
--- NOTE | 2024-01-31 16:18 | W.PN.GI.CBS2 ---
Today's Communication / Plan
-
etiology of bleeding related to local source - hemorrhoids as noted after BM this am with second stool with formed brown stool and blood around stools vs other-- some elevated BUN but less likely upper source with red color noted
Rectal exam with brown stool and bright blood on the glove suggesting hemorrhoidal source
No further bleeding with Anusol HC suppository
Hemoglobin stable.Xarelto restarted
Outpatient colonoscopy with Dr. Levy. If overt bleeding, suggested he should follow-up with our office.
Will sign off, please call back if needed.
Assessment / Plan
-
Pt is a 73yo with multiple med problems- cardiac sarcoidosis on prednisone, afib PE/DVT on Xarelto, VT with AICD, CAD, CHF, CM with decreased EF 35-40%, COPD, HTN, hyperlipidemia, mild to mod MR, adrenal lesion, obesity presents with onset of cough
with shortness of breath 01/19 with concern for covid infection he was noted today with hyperkalemia and also passed formed stool then slightly loose stool with blood and asked to evaluate. hx colonoscopy 2013 with multiple polyps - SS polyps,
adenomatous, TA and hyperplastic polyps. 06/2019 with 4 mm polyp cecum 10mm polyp TC clip placed, diverticulosis and tattoo seen TC bx with SS adenoma in cecum and TC. Pt was due follow up in 2022.
-rectal bleeding
-covid + PNA with hypoxemia now improving
-hyperkalemia
-elevated BUN with some chronic elevation
-abnormal troponin
-afib/PE/DVT on Xarelto
-hyperglycemia
other med problems:
cardiac sarcoid on chronic steroids
-VT with AICD in place
-AICD
-CAD
-CHF
-CM with decreased EF
-COPD
-HTN
-mild to mod MR
-adrenal lesion
-obesity
PLAN:
etiology of bleeding related to local source - hemorrhoids as noted after BM this am with second stool with formed brown stool and blood around stools vs other-- some elevated BUN but less likely upper source with red color noted
Rectal exam with brown stool and bright blood on the glove suggesting hemorrhoidal source
No further bleeding with Anusol HC suppository
Hemoglobin stable.Xarelto restarted
Outpatient colonoscopy with Dr. Levy. If overt bleeding, suggested he should follow-up with our office.
Will sign off, please call back if needed.
Subjective
Subjective
Date of Service: January 31, 2024
Patient without any abdominal pain, nausea or vomiting. Had brown bowel movement today without blood.
Objective
Data Reviewed
Laboratory Data:
Laboratory Results
01/31/24 05:57
01/31/24 05:57
Laboratory Results
PT 21.3 Sec (11.4-14.6) H 01/22/24 12:19
INR 1.87 01/22/24 12:19
APTT 33.9 Sec (23.4-35.0) 01/22/24 12:19
Phosphorus 4.9 mg/dl (2.5-4.5) H 01/29/24 05:28
Magnesium 2.9 mg/dl (1.6-2.3) H 01/29/24 05:28
Total Bilirubin 1.2 mg/dl (0.2-1.3) 01/31/24 05:57
AST 34 U/L (17-59) 01/31/24 05:57
ALT 37 U/L (0-50) 01/31/24 05:57
Alkaline Phosphatase 71 U/L (38-126) 01/31/24 05:57
Vital Signs and I&O:
Vital Signs
Temp Pulse Resp BP Pulse Ox
97.6 F 73 15 111/71 93
01/31/24 15:41 01/31/24 14:00 01/31/24 14:00 01/31/24 14:00 01/31/24 15:03
I&O
01/30/24 01/31/24 02/01/24
06:59 06:59 06:59
Intake Total 360 / 360 240 / 240
Output Total 2765 / 2765 1700 / 1700 1000 / 1000
Balance -2405 / -2405 -1460 / -1460 -1000 / -1000
Physical Exam
Physical Exam
GI: Soft, Non Distended and Non Tender
--- NOTE | 2024-01-31 17:33 | PTCARENOTE ---
OOB all day, 1000ml urine output s/p IV Lasix today. Knowledgeable about fluid restriction- maintaining. Denies pain, remains on 3L all day at rest but requires increase O2 with activity. Occas. cough noted. EKG completed this am as ordered.
Refused suppository today- Prep H ointment ordered and at the bedside. No bleeding noted. CHF videos encouraged.
--- NOTE | 2024-01-31 23:00 | PTCARENOTE ---
Pt refused suppository this evening, Pt preferred Prep H ointment. Pt requires increase O2 to 10L with activity, Pt had quick recovery and good coloring. Pt remaining on 3L for sleep, SPO2 92% respirations even and unlabored. Assessment care and
vitals as charted.
[2024-02-01] VITALS (11 sets, daily range): BP systolic 118–138; BP diastolic 68–84; PULSE 71; O2SAT 81–94; BMI 31.6
[2024-02-01 05:41] LABS: Hematocrit 38.3 % (39.0-52.0); Hemoglobin 13.7 g/dL (13.0-18.0); Mean Corp Hgb Conc. 35.8 g/dL (33.0-37.0); Mean Corpuscular Hgb 31.4 pg (27.0-31.0); Mean Corpuscular Volume 87.8 fL (80.0-94.0); Mean Platelet Volume 11.5 fL (7.4-10.4); Platelet Count 149 10^3/uL (130-400); Red Blood Cell Count 4.36 10^6/uL (4.70-6.10); Red Cell Dist. Width 15.1 % (11.5-14.5); White Blood Cell Count 22.1 10^3/uL (4.8-10.8)
[2024-02-01 05:58] LABS: % Basophils 0.8 % (0-2); % Lymphocytes 1.6 % (20.5-51.1); % Monocytes 2.7 % (1.7-9.3); % Neutrophils 90.9 % (42.2-75.2); Absolute Basophils 0.2 10^3/uL (0-0.2); Absolute Immature Granulocytes 0.9 10^3/uL (0-0.05); Absolute Lymphocytes 0.4 10^3/uL (1.2-3.4); Absolute Monocytes 0.6 10^3/uL (0.1-0.6); Absolute Neutrophils 20.1 10^3/uL (1.4-6.5); Nucleated Red Blood Cells % 0 % (-)
[2024-02-01 06:03] LABS: ALT (SGPT) 32 U/L (0-50); AST (SGOT) 24 U/L (17-59); Albumin 3.4 g/dl (3.5-5.0); Alkaline Phosphatase 72 U/L (38-126); Blood Urea Nitrogen 59 mg/dl (9-20); Calcium 8.4 mg/dl (8.4-10.2); Carbon Dioxide 21 mmol/L (22-30); Chloride 104 mmol/L (98-107); Estimated Creatinine Clearance 55 ml/min; Glucose 146 mg/dl (70-99); Potassium 5.2 mmol/L (3.5-5.1); Sodium 134 mmol/L (135-145); Total Protein 5.7 g/dl (6.3-8.2)
--- NOTE | 2024-02-01 06:41 | PTCARENOTE ---
Pt SPO2 dropping to 81% walking into bathroom with Tech on 10L. Pt sat back in chair 15L midflow Pt was able to recuperate SPO2 93% 4L.
--- NOTE | 2024-02-01 06:47 | W.PN.PUL3 ---
Today's Communication / Plan
-
Chest x-ray 02/01, PA and lateral
Mechanical DVT prophylaxis. Compression stocking/and pneumatic devices
Continue with efforts to wean oxygen
Xarelto remains on hold. Resume at discretion of primary service
Occasional blood per rectum noted
Assessment
-
73-year-old male with history of COPD, sarcoidosis, NITA, CAD, nonischemic cardiomyopathy and arrhythmias who recently returned from extensive trip to [place] complaining of 12-day history of cough, shortness of breath, sore throat and runny nose last
received booster Februaryovid (5 shots total) noted to have pneumonia, covid positive and pulmonary consulted for hypoxemia/pneumonia/ covid 01/21/2024.
Impression:
Acute respiratory failure with hypoxia - due to COVID-19 pneumonia in setting of COPD and atelectasis/hypoventilation
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
Community-acquired pneumonia due to COVID-19
COPD with acute exacerbation
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
Troponin elevation-0.043 on 01/20/2024
Mild anemia
Suspected right adrenal mass
Conditions present prior to admission:
Moderate COPD/centrilobular emphysema (post-BD FEV1: 2.33L / 80% via spirometry from 09/06/2023)
Former smoker quit 2014.
Pulmonary nodule-2 mm right upper lobe stable 2022
NITA.
Obesity.
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
Hypertension.
Hyperlipidemia.
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
PAF.
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
Chronic amiodarone-100 mg daily
Nonischemic CM-EF 35%/ICD.
Diastolic CHF.
CAD-nonocclusive 2014.
Moderate MR.
GERD.
Basal cell skin CA.
Left knee arthroscopy 2010. Mediastinal Skippy. Right knee surgery 2018. Basal cell left ear 2020. Cataract 2021. Melanoma right wrist 2023
Plan/recommendations
Patient appears to be stable from a subjective standpoint
Desaturation this morning ambulating to the bathroom, 81%, required bump up to 15 L to recover
Patient seems to be unchanged symptomatically. Mild lightheadedness but no worsening. Denies chest pain
Presently 90 to 94% on 10 L
Chest exam is clear, no worsening
Appears comfortable
Episode of rectal bleeding noted, mild blood noted intermittently per patient
Xarelto remains on hold
Negative fluid status noted
Moving forward
Continue with current management
No changes, slow steroid taper
The patient is on 40 mg of prednisone as outpatient
Patient high risk for thromboembolic disease. Remains on Xarelto, currently being held
Chronic lower extremity edema noted
Patient has been 'refusing compression stockings' per nursing as he was waiting for his home stockings to be brought
Reviewed with nursing and patient. Placed knee-high compression stockings and pneumatic compression devices in place
Doppler negative for DVT from 01/23. Repeat as clinically indicated
Rectal bleeding noted. Abdominal imaging pending per primary service. N.p.o.
Continue to wean oxygen
Suspect chest x-ray is lagging clinical improvement
Reviewed with patient expected prolonged slow recovery given interstitial findings on CT imaging
Chronically immunosuppressed steroids for cardiac sarcoid.
Abx as per ID - s/p 3 days of ceftriaxone + azithromycin - ID has signed off
Now remains on Bactrim prophylaxis
Covid positive antigen from 01/20/2024
Negative fluid status continues
Echo 01/22/2024: EF 40%, normal RV size and function, PA pressure 35
Chronic amiodarone 200 mg daily.
Cardiology following
Outpatient follow-up for suspected right adrenal mass with nonemergent MRI
DVT prophylaxis-on Xarelto/held for now. This may need to be readdressed given rectal bleeding. Mechanical prophylaxis in the interim
Reviewed with patient and nursing

Follow-up by Dr. Segovia-has NITA, aware of associations and treatment options, considering pursuing CPAP, due for yearly low-dose lung cancer screening CT chest 03/2024, prednisone per cardiology-follows Dr. Lamas and reportedly to see cardiac
sarcoid specialist at [facility] for cardiac sarcoid-no obvious pulmonary involvement at this time
Patient was last seen by Dr. Segovia 09/06/2023 and has a follow-up appointment 01/26/2024 at 10:15 AM; will need to postpone that office visit.
Diagnostic data:
Chest x-ray 04/26/23-left chest wall defibrillator placed with lead tips in the right atrium and right ventricle������
Chest x-ray 01/20/2024-bibasilar pneumonia
CT chest. Lva-vhsb-1-2020 -no evidence of pulmonary malignancy. Stable 2.8 cm subpleural lipoma at the posterior left base. Stable large 2 cm pre tracheal lymph node at the left koko. Minimal emphysematous changes left base. Atherosclerosis�������
CT ufpie-qrz-lbtp-03-30-2022- Stability of 2 mm right upper lobe nodule. Stable since 2014. Mild subpleural parenchymal scarring with emphysematous change in the upper lateral aspect of the left lower lobe as well on the lateral basilar portion of
the left lower lobe.�������
CT [id number]-sgj-waxd 04/20/23-mild central lobular emphysema, 2 mm solid subpleural nodule right upper lobe stable.�������
CT chest 04/25/23-no evidence for pulmonary embolism, mild bibasilar segmental atelectasis, mediastinal and bilateral hilar lymphadenopathy, some of which are partially calcified. These are unchanged compared to recent CT chest 04/20/23 and only
minimally increased compared to 2015, prominence of main pulmonary trunk suggesting pulmonary artery hypertension, 1.3 cm left thyroid nodule unchanged 2014
CTA Chest 01-26-2024- No evidence of pulmonary embolus; Findings suggesting pneumonia. This is suggestive of Covid 19 type pneumonia. Moderate. New from 04/25/2023; findings suggesting mild emphysematous disease. Enlarged incidental right probable
adrenal mass. This would better be evaluated by a nonurgent MR examination�������
PET scan-[facility]-05/16/23-increased metabolic activity at the left cardiac border/left ventricle, indicating active disease-sarcoidosis, which correlates with a cardiac MRI findings, hilar and mediastinal lymphadenopathy with increased
metabolic activity indicates active disease as well, cardiac SUV ranging 2.8-3/3, mediastinal, hilar SUV ranging 2.3-3.16 and right hilar lymph node, SUV 3.06, no abnormal pulmonary uptake.
Lower extremity ultrasound 01/03/2024-very small subcutaneous edema right ankle, severe tendinosis right peroneal longus and brevis tendons
Echocardiogram-2016- EF normalized from 20 to 55 %�������
Echocardiogram 04/25/23-EF 35-40%, mild global hypokinesis, PA systolic 26-31, compared to 2022, LV is dilated and increased from 5.8-7.2 cm and the EF was decreased from 45% to 35-40%�������
Cardiac MRI 04/26/23-severe thinning akinesis and transmural enhancement of the inferolateral, inferior whitten consistent with chronic myocardial infarction, global left ventricular hypokinesis�������
Cardiac catheterization 04/25/23-nonobstructive coronary artery disease, dilated cardiomyopathy with severe posterior basilar hypokinesis and global hypokinesis.
HST 07/03/23-AHI-10, desaturation josselin 84%, 5.3 minutes spent less than 80% saturation.
Spirometry-2014- FEV1 2.5, 3-73%,FVC 3.61,83 9 BD response Ratio 70�������
PFT-2018- FEV1 3.1, 1-99%,FVC 4.66,110 TLC 103 DLOC 68�������
YTT-[id number]- FEV1 3.02-100%, FVC 4.44, 108 ratio 63 Fef 25-75 1.11, 48 33 BD response�������
QDJ-2-1309-22-2022- PFT- FEV1 2.73-92%,FVC 4.60, 113, ratio 57 TLC 102 DLCO 85�������
Spirometry 06/12/23-FEV1 2.48-85%, FVC 3.36-83%, no significant BD response. Mild restriction.�������
PFT 07/25/23-FEV1 2.57-87%, FVC 3.84-95%, no significant BD response, TLC 92%, RV 70%, DLCO 69%, DLCO/VA 77%. Mild obstruction and mild reduction in diffusing capacity.�������
Spirometry 09/06/23-FEV1 2.27-70%, FVC 3.93-98%, no significant BD response. Mild obstruction
Subjective Data
-
Date of Service:
Date of Service: February 01, 2024
Chief Complaint: Pulmonary Follow Up (Hypoxemic respiratory failure/PNeumonia) and Dyspnea Follow Up
Subjective:
Patient sitting in chair, feels he continues to improve. However this morning upon walking to the bathroom, desaturated to 81% requiring brief bump up to 15 L. Patient had some mild lightheadedness but nothing different from prior few days.
Denied chest pain. Denies significant cough. Presently on 10 L, 90 to 94%
Objective Data
Data Reviewed
Vital Signs / I&O / Oxygen:
Vital Signs
Temp Pulse Resp BP Pulse Ox
97.6 F 64 15 115/78 94
02/01/24 04:23 01/31/24 22:00 01/31/24 22:00 01/31/24 22:00 01/31/24 19:40
Intake and Output
01/30/24 01/31/24 02/01/24
06:59 06:59 06:59
Intake Total 360 / 360 240 / 240 1050 / 1050
Output Total 2765 / 2765 1700 / 1700 1800 / 1800
Balance -2405 / -2405 -1460 / -1460 -750 / -750
SaO2 94
Nasal Cannula flow liters per 3
minute
Physical Exam
General: Comfortable
HEENT: Normocephalic, Anicteric and Moist Mucous Membranes
Cardiovascular: S1-S2, Regular Rhythm, Murmur (n), Rub (n) and Peripheral Edema (tr)
Respiratory: Wheeze (Negative), Crackles (n), Rhonchi (Negative), Non-Labored Respirations and Stridor (n)
GI: Soft, Non Distended, Non Tender and Normal Bowel Sounds
Neurology: Awake and Alert
Skin: Warm, Dry, Cyanosis (n) and Jaundice (Negative)
Labs/Micro/Reports
Lab Data
02/01/24 05:20
02/01/24 05:20
[2024-02-01] MEDS: ADVAIR HFA 230/21 MCG INHALER 2 PUFF INH ×2 (07:32→19:47)
[2024-02-01] MEDS: SPIRIVA RESPIMAT 2.5 MCG 2 PUFF INH (07:32)
[2024-02-01] MEDS: B COMPLEX w/VITAMIN C 1 CAPLET PO (07:58)
[2024-02-01] MEDS: COREG 6.25 MG PO ×2 (07:58→20:06)
[2024-02-01] MEDS: PROTONIX 40 MG PO (07:58)
[2024-02-01] MEDS: JARDIANCE 10 MG PO (07:58)
[2024-02-01] MEDS: LIPITOR 10 MG PO (07:59)
[2024-02-01] MEDS: PACERONE 200 MG PO (08:01)
[2024-02-01] MEDS: THERAGRAN 1 TABLET PO (08:01)
[2024-02-01] MEDS: BACTRIM 400 MG/80 MG 1 TABLET PO (08:01)
[2024-02-01] MEDS: LASIX 20 MG IV (08:01)
[2024-02-01] MEDS: SOLU-MEDROL PF 40 MG IV ×2 (08:02→20:07)
[2024-02-01] MEDS: ANUSOL HC RECTAL ×2 (08:02→20:07)
[2024-02-01] MEDS: PREPARATION H OINTMENT 1 APPLIC RECTAL (08:03)
--- NOTE | 2024-02-01 09:46 | W.PN.CARDCBS ---
Addendum entered and electronically signed by Trev Frazier MD 02/01/24 10:31:
He is comfortable at rest. Still with some dyspnea with activity. Now off isolation.
PMH/PSH/FH/SH: Reviewed
Allergies: None
Outpatient medications: Eylea, amiodarone 200 mg a day, atorvastatin 10 mg a day, carvedilol 6.25 mg twice daily, Jardiance 10 mg a day, prednisone 40 mg a day, Entresto twice daily, spironolactone 12.5 mg a day Bactrim, Xarelto 20 mg a day
Current medications: Amiodarone 200 mg a day, atorvastatin 10 mg a day, carvedilol 6.25 mg twice daily, Jardiance 10 mg a day, Entresto twice daily, Xarelto 20 mg a day, multivitamins, Bactrim, spironolactone 12.5 mg a day, Solu-Medrol 40 IV
every 6, hydrocortisone suppository, pantoprazole, furosemide 20 mg a day
ROS: Negative except as above
135/81, pulse 79, respiratory 17, afebrile, weight is 97 kg, accurate compared to 8 3 down 4 kg, weight on admission was 105.9,
Head neck exam unremarkable, lungs slightly diminished in bases, soft systolic murmur at apex, JVD probably okay, 1+ to 2+ edema, abdomen benign, no acute distress, no longer in isolation
White count is 22.1, hemoglobin 13.7, platelets are 149, sodium is 134, potassium 5.2, BUN/creatinine 59 and 1.4, creatinine had been 1.2,
ICD chest x-ray with infiltrates, proBNP 364
Echo 01/22/2024: EF 35-40%, RV normal, mild to moderate MR, inferior hypokinesis basal inferolateral akinesis, no significant aortic valve disease, trace TR, normal pulmonary artery pressure
Impression:
Mild acute on chronic HFrEF
Respiratory failure-acute hypoxemic due to community-acquired pneumonia
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
COPD with mild acute exacerbation
Abnormal troponin, 0.043
EMEKA
Hyperglycemia
Short run of atrial fibrillation earlier in admission
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
H/o Syncope due to VT s/p shock x1 in ES 04/24/23
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
H/o Ventricular tachycardia
Status post Medtronic DC ICD placement 04/26/2023
Nonischemic Cardiomyopathy, EF 35-40% by echo 03/2023
Nonobstructive CAD by cath 2022
Hypertension
Hyperlipidemia
PVCs
Morbid obesity
COPD/Former tobacco use
Daily ETOH use (3-4 hard liquors/day)
Hx PE 1983, 1999, on chronic xarelto
Chronic OAC with xarelto
Plan:
Overall, he looks reasonably well, although he still has an element of acute on chronic HFrEF. In addition his potassium is up to 5.2 and his creatinine is 1.4. Will hold spironolactone and Entresto today. Reassess volume status in a.m. to
determine appropriate Lasix dose and whether or not spironolactone and/or Entresto can be restarted.
He still has some residual dyspnea - this could relate to COVID.
.
His GDMT for LV dysfunction was optimized at the time of admission.
He is back on Xarelto
Okay to begin discharge planning, will determine Lasix dosing at the time of discharge along with whether or not Entresto and spironolactone can be reinitiated
Original Note:
Today's Communication / Plan
-
follow Cr to determine need for additional diuresis
resume xarelto as no further BRBPR
continue to hold spironolactone, entresto. follow K
wean supp O2 as able
supportive care of covid PNA
Impression / Plan
-
Primary Fender Mechanic Apprentice: Dr. Fam
Dr. Ced Mora: ([place] [facility] sarcoid), phone [phone]
Impression:
Presented 01/20/2024 with cough, shortness of breath, runny nose and sore throat x 12 days
Respiratory failure-acute hypoxemic due to community-acquired pneumonia
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
COPD with mild acute exacerbation
Abnormal troponin, 0.043
EMEKA
Hyperglycemia
Short run of atrial fibrillation earlier in admission
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
H/o Syncope due to VT s/p shock x1 in ES 04/24/23
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
H/o Ventricular tachycardia
Status post Medtronic DC ICD placement 04/26/2023
Nonischemic Cardiomyopathy, EF 35-40% by echo 03/2023
Nonobstructive CAD by cath 2022
Hypertension
Hyperlipidemia
PVCs
Morbid obesity
COPD/Former tobacco use
Daily ETOH use (3-4 hard liquors/day)
Hx PE 1983, 1999, on chronic xarelto
Chronic OAC with xarelto
Cardiac cath 04/25/2023: LM: Luminal Irregularities, Ramus: Normal, LCx: normal, RCA: LI, LVEF: 30% global HK and posterior basal HK. 1+MR
Cath 2014: nonobstructive CAD
ECHO 09/2022: EF 45-50%, mild concentric LVH, focal calcification of anterior mitral valve leaflet, mild MR, trace TR, PAP 39 mmHg
ECHO 04/25/23: EF 35 to 40%, basal to mid inferior and inferolateral akinesis, mild global hypokinesis, stage I diastolic dysfunction, moderate eccentric MR, mild TR, PAP 26 to 31 mmHg, mildly dilated aortic root
Cardiac MRI 04/26/2023: Severe thickening and transmural enhancement in the inferolateral and inferior whitten of the left ventricle CW previous MS. Focal subendocardial enhancement 50 to 75% of myocardial thickness. Global LV HK.
PET scan-[facility]-05/16/23-increased metabolic activity at the left cardiac border/left ventricle, indicating active disease-sarcoidosis, which correlates with a cardiac MRI findings, hilar and mediastinal lymphadenopathy with increased
metabolic activity indicates active disease as well, cardiac SUV ranging 2.8-3/3, mediastinal, hilar SUV ranging 2.3-3.16 and right hilar lymph node, SUV 3.06, no abnormal pulmonary uptake
PET scan revealed myocardial involvement and mild hilar involvement but no pulmonary parenchymal involvement of sarcoidosis.
ECHO 01/22/24: EF visually 35 to 40%, EF 40 to 45% by Dunbar's, inferior wall hypokinetic and basal inferolateral wall akinetic, mild LVH, ICD noted, mild to moderate MR, trace TR, PAP 30 to 35 mmHg, no significant change compared to prior echo
IMPRESSION:
-He continues to desat with ambulation requiring up to 15L midflow, however noted to have quick recovery and O2 sats stable at 3-4 L nasal cannula at rest. Continue supportive care of COVID infection. now off isolation precautions
-he had good response to dose of lasix if weights accurate overnight however Cr up slightly to 1.4. received dose of IV lasix this morning. will place on hold and assess Cr in AM prior to additional diuresis.
-Was not on diuretic as outpatient, however likely needs low dose moving forward as with CM EF 35-40% by echo 01/21.
-K 5.2 on 01/31. on chronic bactrim. will continue to hold spironolactone and entresto this AM, hopefully can resume spironolactone in next 24-48 hours pending trends. continue coreg, jardiance
-No further rectal bleeding overnight per patient/nursing. Will resume Xarelto, discussed with hospitalist
-He remains in sinus/apaced/av paced rhythm on review of telemetry overnight. He did have 2 minutes of A-fib the week of 01/13 by device interrogation. He is chronically on anticoagulation due to history of multiple PEs, presently on hold. continue
amiodarone for history of VT.
-d/w nursing
HPI 01/22/2024:
Patient is a 73 yo M with PMH of nonischemic cardiomyopathy with EF 35 to 40% by echo/cath 04/2023, hypertension, hyperlipidemia, PVCs, VT s/p Medtronic dual-chamber ICD, cardiac sarcoidosis on chronic steroids, history of PE on chronic
anticoagulation with Xarelto who presented 01/20/2024 to [facility] with cough, shortness of breath, sore throat and runny nose. Patient was recently in [place] for a prolonged trip when he developed the symptoms x ~2 weeks. On presentation
to the emergency department patient was found to be hypoxic requiring oxygen and tested positive for COVID an imaging showed evidence of pneumonia. He was not a remdesivir candidate and therefore was was started on IV steroids, bronchodilator
therapy, and IV antibiotic. Troponin 0.043 at peak repeat now undetectable. EKG on presentation showed sinus rhythm. Patient developed worsening oxygen demand requiring transfer to ICU on 01/22/2024. Concern for possible heart failure prompting
cardiology consult. proBNP 259 on 01/20/2024 with with repeat 369 01/22/2024. Patient did get 1 dose of IV Lasix on 01/21/2024.
Progress Note - Fender Mechanic Apprentice
Subjective
Date of Service: February 01, 2024
Reports good diuresis yesterday. States breathing slowly improving, although remains with some shortness of breath with exertion
Objective
Labs:
02/01/24 05:20
02/01/24 05:20
Labs
Hgb 13.7 g/dL (13.0-18.0) 02/01/24 05:20
Hct 38.3 % (39.0-52.0) L 02/01/24 05:20
Plt Count 149 10^3/uL (130-400) D 02/01/24 05:20
PT 21.3 Sec (11.4-14.6) H 01/22/24 12:19
INR 1.87 01/22/24 12:19
APTT 33.9 Sec (23.4-35.0) 01/22/24 12:19
Sodium 134 mmol/L (135-145) L 02/01/24 05:20
Potassium 5.2 mmol/L (3.5-5.1) H 02/01/24 05:20
BUN 59 mg/dl (9-20) H 02/01/24 05:20
Creatinine 1.4 mg/dL (0.7-1.3) H 02/01/24 05:20
Glucose 146 mg/dl (70-99) H 02/01/24 05:20
Vital Signs and I&O:
Vital Signs
Temp Pulse Resp BP Pulse Ox
97.6 F 79 17 135/81 91
02/01/24 04:23 02/01/24 07:36 02/01/24 07:36 02/01/24 06:00 02/01/24 07:36
Vital Signs
Temp Pulse Resp BP Pulse Ox
97.6 F 79 17 135/81 91
02/01/24 04:23 02/01/24 07:36 02/01/24 07:36 02/01/24 06:00 02/01/24 07:36
Intake & Output
01/30/24 01/31/24 02/01/24 02/02/24
07:59 07:59 07:59 07:59
Intake Total 600 / 600 1290 / 1290
Output Total 2215 / 2215 1700 / 1700 1800 / 1800
Balance -1615 / -1615 -1700 / -1700 -510 / -510
Physical Exam
Physical Exam
GEN: No distress, awake, alert, oriented x3. sitting in chair. on supp O2
HEENT: supple, anicteric, mmm, eomi
LUNGS: no audible wheezes
CV: Reg on tele
EXT: No cyanosis, clubbing. trace to 1+ edema B/L
NEURO: Gross non-focal
SKIN: Warm, pink, dry. No rash
--- NOTE | 2024-02-01 12:25 | W.PN.HOSP.TC ---
Today's Communication/Plan
-
very volatile O2 requirements - discussing with pulm for further recommendations
Watch Hgb on Xarelto that was restarted as no blood in the stool overnight
watch Cr with mild elevation, cardiology will hold Lasix next day, unless Cr improving/not elevating
Assessment / Plan
Assessment / Plan
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 Symptoms onset around 01/19/24. Managed on steroids with improving respiratory requirements. Accidental finding of R
adrenal lesion that increased in size from 1.7 to 2.3cm since 2020.
Developed BRBPR on 01/30/24 and hyperkalemia
A/P:
#Acute hypoxic respiratory failure 2/2 COVID-19 pneumonia
ID and pulmonology follows
Steroids as per pulm - slow taper
Bronchodilators
Completed 3 days of Abx
cont to wean off O2
CT neg for PE
#Lower GIB most likely hemorrhoidal
Suppositories
BRBPR on 01/30/24
PPI
CTA abd/pelvis without signs of bleeding
GI consult: ok to restart xarelto when bleeding subsides (started as of 02/01/24)
#Hyperkalemia
Hold Entresto and Spironolactone
recall Cardiology
watch CMP since pt is on Bactrim
#Cardiac sarcoidosis on chronic steroids
#Chronic HFrEF
#Afib, unspecified
cont ppx Bactrim
Cardiology followed - advised outpatient follow up with existent specialist
COnt Lasix, xarelto
#Hyponatremia, mild
follow BMP
#R adrenal lesion
Need MRI and hormonal blood test workup by PCP - patient verbalized understanding and noted instructions in his notebook
DVT ppx SCDs
Full code
I have spent at least 62min reviewing chart, test results, communication with consultants and direct patient care
Anticipated Discharge: 24 - 48 hours
Subjective/Interval History
-
Date of Service: February 01, 2024
Objective Data
-
Labs:
Laboratory Results
02/01/24
05:20
WBC 22.1 H
Hgb 13.7
Hct 38.3 L
Plt Count 149 D
Sodium 134 L
Potassium 5.2 H
Chloride 104
Carbon Dioxide 21 L
BUN 59 H
Creatinine 1.4 H
Glucose 146 H
Calcium 8.4
Total Bilirubin 1.0
AST 24
ALT 32
Alkaline Phosphatase 72
Vital Signs:
Vital Signs
Temp Pulse Resp BP Pulse Ox
98 F 72 17 124/68 92
02/01/24 07:20 02/01/24 10:23 02/01/24 10:23 02/01/24 10:23 02/01/24 08:00
I&O
01/31/24 02/01/24 02/02/24
06:59 06:59 06:59
Intake Total 240 / 240 1290 / 1290
Output Total 1700 / 1700 1800 / 1800
Balance -1460 / -1460 -510 / -510
Review of Systems
-
History Source: Patient
All other systems: Reviewed and negative
Physical Exam
-
General: No Apparent Distress
HEENT: Normocephalic and Atraumatic
Respiratory: Crackles
Cardiac: Regular Rhythm
GI: Soft, Nontender and Nondistended
Genito-urinary: No Costovertebral Tender
Musculoskeletal: No Clubbing, No Cyanosis and No Edema
Skin: Warm
Neuro: Awake, Alert, Oriented and AO x 3
Psych: Calm
--- NOTE | 2024-02-01 15:03 | CM ---
Patient with Dx Acute hypoxic respiratory failure 2/2 COVID-19 pneumonia, Lower GIB. Patient now in Standard Precautions - no longer in Isolation due to Covid. O2 8L. Receiving IV Solumedrol. PT & OT recommend skilled rehab.
Spoke with patient and about his current functional status; patient says he is willing to go to SNF for rehab and agrees- she prefers [facility] due to proximity to their house and patient agrees. Answered patient/'s questions about
rehab, insurance process, DME for home after SNF.
Spoke with Anusha, [facility]; she will review the referral. Anusha was made aware that patient is no longer in Isolation for Covid. They need him to be on < 8L O2 at d/c as their O2 only goes up to 10L---> Richie Randall & Christine made aware.
Plan follow up referral to [facility] for acceptance.
--- NOTE | 2024-02-01 19:25 | PTCARENOTE ---
OOB all day- O2 sat drop with activity- (with therapists) mostly asymptomatic however has dusky color skin changes when too low. Pleasant, SR/ PVCs today. Appetite good. No bleeding noted per pt- used prep H ointment.
[2024-02-01] MEDS: XARELTO 20 MG PO (21:26)
[2024-02-02] VITALS (15 sets, daily range): BP systolic 113–158; BP diastolic 68–134; PULSE 82; O2SAT 92
--- NOTE | 2024-02-02 02:04 | PTCARENOTE ---
Addendum entered by Delfina Wood RN 02/02/24 07:54:
Pt having similar episodes as before. With exertion on 4L Pt spo2 dropping into 70's. Pt placed to 10l and recuperated into the 90% in a short amount of time.
Original Note:
Assumed care of Pt at 2300. Pt resting comfortably in bed respiration even unlabored SPO2 94% on 3L.
[2024-02-02 05:28] LABS: Hematocrit 37.2 % (39.0-52.0); Hemoglobin 12.9 g/dL (13.0-18.0); Mean Corp Hgb Conc. 34.7 g/dL (33.0-37.0); Mean Corpuscular Hgb 31.4 pg (27.0-31.0); Mean Corpuscular Volume 90.5 fL (80.0-94.0); Mean Platelet Volume 11.8 fL (7.4-10.4); Platelet Count 135 10^3/uL (130-400); Red Blood Cell Count 4.11 10^6/uL (4.70-6.10); Red Cell Dist. Width 14.9 % (11.5-14.5); White Blood Cell Count 21.6 10^3/uL (4.8-10.8)
[2024-02-02 05:43] LABS: ALT (SGPT) 33 U/L (0-50); AST (SGOT) 29 U/L (17-59); Albumin 3.2 g/dl (3.5-5.0); Alkaline Phosphatase 71 U/L (38-126); Blood Urea Nitrogen 55 mg/dl (9-20); Calcium 7.9 mg/dl (8.4-10.2); Carbon Dioxide 22 mmol/L (22-30); Chloride 106 mmol/L (98-107); Estimated Creatinine Clearance 70 ml/min; Glucose 145 mg/dl (70-99); Potassium 4.7 mmol/L (3.5-5.1); Sodium 133 mmol/L (135-145); Total Bilirubin 0.9 mg/dl (0.2-1.3); Total Protein 5.4 g/dl (6.3-8.2); eGFR > 60.00
[2024-02-02] MEDS: ADVAIR HFA 230/21 MCG INHALER 2 PUFF INH ×2 (07:17→20:38)
[2024-02-02] MEDS: SPIRIVA RESPIMAT 2.5 MCG 2 PUFF INH (07:17)
--- NOTE | 2024-02-02 07:28 | W.PN.PUL3 ---
Today's Communication / Plan
-
Transition to oral prednisone 40 mg to start 02/02. This is his outpatient dose
Maintain oxygenation, saturation greater than 88%
Xarelto resumed
PT/OT. Suspect slow recovery. Rehabilitation planned
Follow-up with pulmonary in 1 month
We will sign off. Please call with questions
Assessment
-
73-year-old male with history of COPD, sarcoidosis, NITA, CAD, nonischemic cardiomyopathy and arrhythmias who recently returned from extensive trip to [place] complaining of 12-day history of cough, shortness of breath, sore throat and runny nose last
received booster Februaryovid (5 shots total) noted to have pneumonia, covid positive and pulmonary consulted for hypoxemia/pneumonia/ covid 01/21/2024.
Impression:
Acute respiratory failure with hypoxia - due to COVID-19 pneumonia in setting of COPD and atelectasis/hypoventilation
COVID-19 Ag positive - symptom onset nearly 2 weeks CHOCOLATE FINISHER
Community-acquired pneumonia due to COVID-19
COPD with acute exacerbation
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
Troponin elevation-0.043 on 01/20/2024
Mild anemia
Suspected right adrenal mass
Conditions present prior to admission:
Moderate COPD/centrilobular emphysema (post-BD FEV1: 2.33L / 80% via spirometry from 09/06/2023)
Former smoker quit 2014.
Pulmonary nodule-2 mm right upper lobe stable 2022
NITA.
Obesity.
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
Hypertension.
Hyperlipidemia.
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
PAF.
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
Chronic amiodarone-100 mg daily
Nonischemic CM-EF 35%/ICD.
Diastolic CHF.
CAD-nonocclusive 2014.
Moderate MR.
GERD.
Basal cell skin CA.
Left knee arthroscopy 2010. Mediastinal Skippy. Right knee surgery 2017. Basal cell left ear 2020. Cataract 2021. Melanoma right wrist 2023
Plan/recommendations
Patient appears to be stable from a subjective standpoint
He is feeling improved
Chest x-ray today, with improved bibasilar infiltrate
Has been weaned down to 3 to 5 L
Patient seems to be unchanged symptomatically. Mild lightheadedness but no worsening. Denies chest pain
Appears comfortable
Episode of rectal bleeding noted, mild blood noted intermittently per patient
Xarelto remains on hold
Negative fluid status noted
Xarelto resumed
Moving forward
Continue with current management
No changes, slow steroid taper
The patient is on 40 mg of prednisone as outpatient. Okay to transition to outpatient prednisone dose of 40 mg
Patient high risk for thromboembolic disease. Remains on Xarelto, resumed
Chronic lower extremity edema noted
Patient has been 'refusing compression stockings' per nursing as he was waiting for his home stockings to be brought
Reviewed with nursing and patient. Placed knee-high compression stockings and pneumatic compression devices in place
Doppler negative for DVT from 01/23. Repeat as clinically indicated
Rectal bleeding noted. If Xarelto is held in the future, discussed importance of compression stockings given high risk for thromboembolic disease
Continue to wean oxygen
Suspect chest x-ray is lagging clinical improvement
Reviewed with patient expected prolonged slow recovery given interstitial findings on CT imaging encouraging that chest x-ray is improving
Chronically immunosuppressed steroids for cardiac sarcoid.
Abx as per ID - s/p 3 days of ceftriaxone + azithromycin - ID has signed off
Now remains on Bactrim prophylaxis
Covid positive antigen from 01/20/2024
Negative fluid status continues
Echo 01/22/2024: EF 40%, normal RV size and function, PA pressure 35
Chronic amiodarone 200 mg daily.
Cardiology following
Outpatient follow-up for suspected right adrenal mass with nonemergent MRI
DVT prophylaxis-on Xarelto/held for now. This may need to be readdressed given rectal bleeding. Mechanical prophylaxis in the interim
Reviewed with patient
Disposition efforts
We will sign off. Please call with questions

Follow-up by Dr. Segovia-has NITA, aware of associations and treatment options, considering pursuing CPAP, due for yearly low-dose lung cancer screening CT chest 03/2024, prednisone per cardiology-follows Dr. Lamas and reportedly to see cardiac
sarcoid specialist at [facility] for cardiac sarcoid-no obvious pulmonary involvement at this time
Patient was last seen by Dr. Segovia 09/06/2023 and has a follow-up appointment 01/26/2024 at 10:15 AM; will need to postpone that office visit.
Diagnostic data:
Chest x-ray 04/26/23-left chest wall defibrillator placed with lead tips in the right atrium and right ventricle������
Chest x-ray 01/20/2024-bibasilar pneumonia
CT chest. [place]-spjs-0-2020 -no evidence of pulmonary malignancy. Stable 2.8 cm subpleural lipoma at the posterior left base. Stable large 2 cm pre tracheal lymph node at the left koko. Minimal emphysematous changes left base. Atherosclerosis�������
CT [id number]-ujr-fheq-03-30-2022- Stability of 2 mm right upper lobe nodule. Stable since 2014. Mild subpleural parenchymal scarring with emphysematous change in the upper lateral aspect of the left lower lobe as well on the lateral basilar portion of
the left lower lobe.�������
CT [id number]-[id number]-bdnu 04/20/23-mild central lobular emphysema, 2 mm solid subpleural nodule right upper lobe stable.�������
CT chest 04/25/23-no evidence for pulmonary embolism, mild bibasilar segmental atelectasis, mediastinal and bilateral hilar lymphadenopathy, some of which are partially calcified. These are unchanged compared to recent CT chest 04/20/23 and only
minimally increased compared to 2014, prominence of main pulmonary trunk suggesting pulmonary artery hypertension, 1.3 cm left thyroid nodule unchanged 2014
CTA Chest 01-26-2024- No evidence of pulmonary embolus; Findings suggesting pneumonia. This is suggestive of Covid 19 type pneumonia. Moderate. New from 04/25/2023; findings suggesting mild emphysematous disease. Enlarged incidental right probable
adrenal mass. This would better be evaluated by a nonurgent MR examination�������
PET scan-Tyrell Rodriguez-05/16/23-increased metabolic activity at the left cardiac border/left ventricle, indicating active disease-sarcoidosis, which correlates with a cardiac MRI findings, hilar and mediastinal lymphadenopathy with increased
metabolic activity indicates active disease as well, cardiac SUV ranging 2.8-3/3, mediastinal, hilar SUV ranging 2.3-3.16 and right hilar lymph node, SUV 3.06, no abnormal pulmonary uptake.
Lower extremity ultrasound 01/03/2024-very small subcutaneous edema right ankle, severe tendinosis right peroneal longus and brevis tendons
Echocardiogram-2016- EF normalized from 20 to 55 %�������
Echocardiogram 04/25/23-EF 35-40%, mild global hypokinesis, PA systolic , compared to 2022, LV is dilated and increased from 5.8-7.2 cm and the EF was decreased from 45% to 35-40%�������
Cardiac MRI 04/26/23-severe thinning akinesis and transmural enhancement of the inferolateral, inferior whitten consistent with chronic myocardial infarction, global left ventricular hypokinesis�������
Cardiac catheterization 04/25/23-nonobstructive coronary artery disease, dilated cardiomyopathy with severe posterior basilar hypokinesis and global hypokinesis.
HST 07/03/23-AHI-10, desaturation josselin 84%, 5.3 minutes spent less than 80% saturation.
Spirometry-2014- FEV1 2.5, 3-73%,FVC 3.61,83 9 BD response Ratio 70�������
PFT-2018- FEV1 3.1, 1-99%,FVC 4.66,110 TLC 103 DLOC 68�������
[id number]- FEV1 3.02-100%, FVC 4.44, 108 ratio 63 Fef 25-75 1.11, 48 33 BD response�������
[id number]- PFT- FEV1 2.73-92%,FVC 4.60, 113, ratio 57 TLC 102 DLCO 85�������
Spirometry 06/12/23-FEV1 2.48-85%, FVC 3.36-83%, no significant BD response. Mild restriction.�������
PFT 07/25/23-FEV1 2.57-87%, FVC 3.84-95%, no significant BD response, TLC 92%, RV 70%, DLCO 69%, DLCO/VA 77%. Mild obstruction and mild reduction in diffusing capacity.�������
Spirometry 09/06/23-FEV1 2.27-70%, FVC 3.93-98%, no significant BD response. Mild obstruction
Subjective Data
-
Date of Service:
Date of Service: February 02, 2024
Chief Complaint: Pulmonary Follow Up (Hypoxemic respiratory failure/PNeumonia) and Dyspnea Follow Up
Subjective:
Patient feels improved. Sitting in chair. Currently on 5 L. Negative fluid status noted. Denies chest pain, lightheadedness, dizziness except with activity. This is slowly improving according to the patient.
Objective Data
Data Reviewed
Vital Signs / I&O / Oxygen:
Vital Signs
Temp Pulse Resp BP Pulse Ox
97.9 F 65 16 121/73 94
02/02/24 04:21 02/02/24 07:26 02/02/24 07:26 02/02/24 02:00 02/02/24 07:26
Intake and Output
02/01/24 02/02/24 02/03/24
06:59 06:59 06:59
Intake Total 1290 / 1290 1240 / 1240
Output Total 1800 / 1800 2400 / 2400
Balance -510 / -510 -1160 / -1160
SaO2 94
Nasal Cannula flow liters per 3
minute
Physical Exam
General: Comfortable
HEENT: Normocephalic, Anicteric and Moist Mucous Membranes
Cardiovascular: S1-S2, Regular Rhythm, Murmur (n), Rub (n) and Peripheral Edema (tr)
Respiratory: Wheeze (Negative), Crackles (n), Rhonchi (Negative), Non-Labored Respirations and Stridor (n)
GI: Soft, Non Distended, Non Tender and Normal Bowel Sounds
Neurology: Awake and Alert
Skin: Warm, Dry, Cyanosis (n) and Jaundice (Negative)
Labs/Micro/Reports
Lab Data
02/02/24 05:00
02/02/24 05:00
[2024-02-02 07:34] LABS: % Basophils 0.3 % (0-2); % Immature Granulocytes 5.4 % (0-0.5); % Lymphocytes 1.6 % (20.5-51.1); % Monocytes 2.3 % (1.7-9.3); % Neutrophils 90.4 % (42.2-75.2); Absolute Basophils 0.1 10^3/uL (0-0.2); Absolute Immature Granulocytes 1.2 10^3/uL (0-0.05); Absolute Lymphocytes 0.3 10^3/uL (1.2-3.4); Absolute Monocytes 0.5 10^3/uL (0.1-0.6); Absolute Neutrophils 19.6 10^3/uL (1.4-6.5); Nucleated Red Blood Cells % 0 % (-)
[2024-02-02] MEDS: THERAGRAN 1 TABLET PO (08:42)
[2024-02-02] MEDS: PROTONIX 40 MG PO (08:42)
[2024-02-02] MEDS: ANUSOL HC RECTAL ×2 (08:42→20:33)
[2024-02-02] MEDS: BACTRIM 400 MG/80 MG 1 TABLET PO (08:42)
[2024-02-02] MEDS: B COMPLEX w/VITAMIN C 1 CAPLET PO (08:42)
[2024-02-02] MEDS: JARDIANCE 10 MG PO (08:42)
[2024-02-02] MEDS: COREG 6.25 MG PO ×2 (08:43→20:33)
[2024-02-02] MEDS: PACERONE 200 MG PO (08:43)
[2024-02-02] MEDS: LIPITOR 10 MG PO (08:43)
[2024-02-02] MEDS: SOLU-MEDROL PF 40 MG IV (08:44)
--- NOTE | 2024-02-02 12:55 | W.PN.HOSP.TC ---
Today's Communication/Plan
-
pending acceptance to [facility]
Assessment / Plan
Assessment / Plan
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 Symptoms onset around 01/19/24. Managed on steroids with improving respiratory requirements. Accidental finding of R
adrenal lesion that increased in size from 1.7 to 2.3cm since 2020.
Developed BRBPR on 01/30/24 and hyperkalemia, resolved by withholding meds. SInce bleeding contributed to hemorrhoids and hgb stable - GI agreed with the restarting of the Xarelto. Switched to Prednisone on 02/02/24, medically stable for d/c, plan to
[place] on 02/03/24 as per CM
A/P:
#Acute hypoxic respiratory failure 2/2 COVID-19 pneumonia
ID and pulmonology follows
Steroids as per pulm - slow taper
Bronchodilators
Completed 3 days of Abx
cont to wean off O2
CT neg for PE
#Lower GIB most likely hemorrhoidal
Suppositories
BRBPR on 01/30/24
PPI
CTA abd/pelvis without signs of bleeding
GI consult: ok to restart xarelto when bleeding subsides (started as of 02/01/24)
#Hyperkalemia
Hold Entresto and Spironolactone
recall Cardiology
watch CMP since pt is on Bactrim
#Cardiac sarcoidosis on chronic steroids
#Chronic HFrEF
#Afib, unspecified
cont ppx Bactrim
Cardiology followed - advised outpatient follow up with existent specialist
COnt Lasix, xarelto
#Hyponatremia, mild
follow BMP
#R adrenal lesion
Need MRI and hormonal blood test workup by PCP - patient verbalized understanding and noted instructions in his notebook
DVT ppx SCDs
Full code
I have spent at least 37min reviewing chart, test results, communication with consultants and direct patient care
Anticipated Discharge: Within 24 hours
Subjective/Interval History
-
Date of Service: February 02, 2024
Objective Data
-
Labs:
Laboratory Results
02/02/24
05:00
WBC 21.6 H
Hgb 12.9 L
Hct 37.2 L
Plt Count 135
Sodium 133 L
Potassium 4.7
Chloride 106
Carbon Dioxide 22
BUN 55 H
Creatinine 1.1
Glucose 145 H
Calcium 7.9 L
Total Bilirubin 0.9
AST 29
ALT 33
Alkaline Phosphatase 71
Vital Signs:
Vital Signs
Temp Pulse Resp BP Pulse Ox
97.9 F 83 34 131/68 92
02/02/24 11:21 02/02/24 08:43 02/02/24 08:42 02/02/24 08:43 02/02/24 09:37
I&O
02/01/24 02/02/24 02/03/24
06:59 06:59 06:59
Intake Total 1290 / 1290 1240 / 1240
Output Total 1800 / 1800 2400 / 2400
Balance -510 / -510 -1160 / -1160
Review of Systems
-
History Source: Patient
All other systems: Reviewed and negative
Physical Exam
-
General: Well Developed, Well Nourished and No Apparent Distress
HEENT: Normocephalic and Atraumatic
Respiratory: Crackles (on R)
Cardiac: Regular Rhythm
GI: Soft, Nontender and Nondistended
Musculoskeletal: No Clubbing, No Cyanosis, Edema, Right Lower Extrem and Edema, Left Lower Extrem
Skin: Warm
Neuro: Awake, Alert, Oriented and AO x 3
Psych: Calm
--- NOTE | 2024-02-02 13:02 | CM ---
CM following re: discharge planning.
Reviewed pt's chart, met with pt and pt's spouse at bedside.
Both pt and his spouse are aware that pt potentially will be ready for discharge on Monday or Monday and they expressed their agreement. IMM reviewed, placed on chart, pt has a copy.
CM spoke to [facility] director sanitation bureau Anusha and she confirmed that pt is accepted for admission to [facility] either Monday or Monday. Weekend CM needs to call [facility] and to ask for nursing machinery repair maintenance supervisor to confirm pt's discharge
[facility]
Accepting physician: Dr. Palmer
D/C plan: [facility] when medially stable. Pt will need an auth for Tandigm IBX
CM will follow to assit pt with discharge to [facility] hen pt is medically stable.
--- NOTE | 2024-02-02 14:30 | W.PN.CARDCBS ---
Today's Communication / Plan
-
lasix 20mg po daily
resume aldactone.
if K/Cr stable with this, consider adding back entresto in next 24-48 hours
wean O2 as able
Impression / Plan
-
Primary Yardage Control Operator Forming: Dr. Fam
Dr. Ced Mora: ([place] cardiac sarcoid), phone [phone]
Impression:
Presented 01/20/2024 with cough, shortness of breath, runny nose and sore throat x 12 days
Respiratory failure-acute hypoxemic due to community-acquired pneumonia
Covid positive-symptom onset nearly 2 weeks BIRD KEEPER
COPD with mild acute exacerbation
Abnormal troponin, 0.043
EMEKA
Hyperglycemia
Short run of atrial fibrillation earlier in admission
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
H/o Syncope due to VT s/p shock x1 in ES 04/24/23
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
H/o Ventricular tachycardia
Status post Medtronic DC ICD placement 04/26/2023
Nonischemic Cardiomyopathy, EF 35-40% by echo 03/2023
Nonobstructive CAD by cath 2022
Hypertension
Hyperlipidemia
PVCs
Morbid obesity
COPD/Former tobacco use
Daily ETOH use (3-4 hard liquors/day)
Hx PE 1983, 1999, on chronic xarelto
Chronic OAC with xarelto
Cardiac cath 04/25/2023: LM: Luminal Irregularities, Ramus: Normal, LCx: normal, RCA: LI, LVEF: 30% global HK and posterior basal HK. 1+MR
Cath 2014: nonobstructive CAD
ECHO 09/2022: EF 45-50%, mild concentric LVH, focal calcification of anterior mitral valve leaflet, mild MR, trace TR, PAP 39 mmHg
ECHO 04/25/23: EF 35 to 40%, basal to mid inferior and inferolateral akinesis, mild global hypokinesis, stage I diastolic dysfunction, moderate eccentric MR, mild TR, PAP 26 to 31 mmHg, mildly dilated aortic root
Cardiac MRI 04/26/2023: Severe thickening and transmural enhancement in the inferolateral and inferior whitten of the left ventricle CW previous AK. Focal subendocardial enhancement 50 to 75% of myocardial thickness. Global LV HK.
[facility]increased metabolic activity at the left cardiac border/left ventricle, indicating active disease-sarcoidosis, which correlates with a cardiac MRI findings, hilar and mediastinal lymphadenopathy with increased
metabolic activity indicates active disease as well, cardiac SUV ranging 2.8-3/3, mediastinal, hilar SUV ranging 2.3-3.16 and right hilar lymph node, SUV 3.06, no abnormal pulmonary uptake
PET scan revealed myocardial involvement and mild hilar involvement but no pulmonary parenchymal involvement of sarcoidosis.
ECHO 01/22/24: EF visually 35 to 40%, EF 40 to 45% by Dunbar's, inferior wall hypokinetic and basal inferolateral wall akinetic, mild LVH, ICD noted, mild to moderate MR, trace TR, PAP 30 to 35 mmHg, no significant change compared to prior echo
IMPRESSION:
-He continues with desaturations with ambulation, however quickly recovers with increased oxygen. At rest remains on 3 to 4 L nasal cannula. Continue supportive care
-Creatinine improved to 1.1 and potassium improved to 4.7 on 02/01. Will place on 20 mg p.o. Lasix daily. Will resume outpatient spironolactone. If creatinine remains stable, consider resuming Entresto in next 24-48 hours
-he will need BMP in 1 week upon DC
-of note, he is on chronic bactrim in addition
-EF 35-40% by echo 01/22/24. continue coreg, jardiance.
-hgb 12.9. back on xarelto after rectal bleeding earlier in admission, felt to be most likely hemorrhoidal. no bleeding noted overnight
-remains in SR/apaced rhythm on review of tele overnight. He did have 2 minutes of A-fib the week of 01/13 by device interrogation. He is chronically on anticoagulation due to history of multiple PEs. continue amiodarone for history of VT.
-plan for SNF upon DC. OP cardiac follow up arranged
-d/w nursing
HPI 01/22/2024:
Patient is a 73 yo M with PMH of nonischemic cardiomyopathy with EF 35 to 40% by echo/cath 04/2023, hypertension, hyperlipidemia, PVCs, VT s/p Medtronic dual-chamber ICD, cardiac sarcoidosis on chronic steroids, history of PE on chronic
anticoagulation with Xarelto who presented 01/20/2024 to [facility] with cough, shortness of breath, sore throat and runny nose. Patient was recently in [place] for a prolonged trip when he developed the symptoms x ~2 weeks. On presentation
to the emergency department patient was found to be hypoxic requiring oxygen and tested positive for COVID an imaging showed evidence of pneumonia. He was not a remdesivir candidate and therefore was was started on IV steroids, bronchodilator
therapy, and IV antibiotic. Troponin 0.043 at peak repeat now undetectable. EKG on presentation showed sinus rhythm. Patient developed worsening oxygen demand requiring transfer to ICU on 01/22/2024. Concern for possible heart failure prompting
cardiology consult. proBNP 259 on 01/20/2024 with with repeat 369 01/22/2024. Patient did get 1 dose of IV Lasix on 01/21/2024.
Progress Note - Yardage Control Operator Forming
Subjective
Date of Service: February 02, 2024
continues with desat with activity
Objective
Labs:
02/02/24 05:00
02/02/24 05:00
Labs
Hgb 12.9 g/dL (13.0-18.0) L 02/02/24 05:00
Hct 37.2 % (39.0-52.0) L 02/02/24 05:00
Plt Count 135 10^3/uL (130-400) 02/02/24 05:00
PT 21.3 Sec (11.4-14.6) H 01/22/24 12:19
INR 1.87 01/22/24 12:19
APTT 33.9 Sec (23.4-35.0) 01/22/24 12:19
Sodium 133 mmol/L (135-145) L 02/02/24 05:00
Potassium 4.7 mmol/L (3.5-5.1) 02/02/24 05:00
BUN 55 mg/dl (9-20) H 02/02/24 05:00
Creatinine 1.1 mg/dL (0.7-1.3) 02/02/24 05:00
Glucose 145 mg/dl (70-99) H 02/02/24 05:00
Vital Signs and I&O:
Vital Signs
Temp Pulse Resp BP Pulse Ox
97.9 F 69 25 141/89 91
02/02/24 11:21 02/02/24 12:20 02/02/24 12:20 02/02/24 12:20 02/02/24 12:20
Vital Signs
Temp Pulse Resp BP Pulse Ox
97.9 F 69 25 141/89 91
02/02/24 11:21 02/02/24 12:20 02/02/24 12:20 02/02/24 12:20 02/02/24 12:20
Intake & Output
01/31/24 02/01/24 02/02/24 02/03/24
07:59 07:59 07:59 07:59
Intake Total 1290 / 1290 1240 / 1240 400 / 400
Output Total 1700 / 1700 1800 / 1800 2400 / 2400
Balance -1700 / -1700 -510 / -510 -1160 / -1160 400 / 400
[2024-02-02] MEDS: LASIX 20 MG PO (15:39)
--- NOTE | 2024-02-02 16:17 | PTCARENOTE ---
Patient out of bed to chair majority of the shift stating that he is feeling much better. Patient continues to desat into the high 80s with ambulation but recovers quickly. Currently on 5 liters via mid flow cannula pulse ox 92%. Patient denying
pain or shortness of breath when asked. at bedside. Excellent appetite.
[2024-02-02] MEDS: XARELTO 20 MG PO (20:32)
[2024-02-02] MEDS: ProAIR HFA INHALER 2 PUFF INH (20:38)
--- NOTE | 2024-02-02 22:32 | PTCARENOTE ---
Caring for patient overnight. aaox3, pleasant. Remains on 5LMF, MARIEE & SOB when talking in bed. Denies pain. OOB to chair with assistance. VSS. SCDs. Crackles heard at the bases. NO other issues at this time. Call marquez in reach.
[2024-02-03] VITALS (14 sets, daily range): BP systolic 92–136; BP diastolic 64–98; BMI 31.3
[2024-02-03] MEDS: SPIRIVA RESPIMAT 2.5 MCG 2 PUFF INH (07:44)
[2024-02-03] MEDS: ADVAIR HFA 230/21 MCG INHALER 2 PUFF INH ×2 (07:44→21:06)
[2024-02-03] MEDS: THERAGRAN 1 TABLET PO (09:25)
[2024-02-03] MEDS: B COMPLEX w/VITAMIN C 1 CAPLET PO (09:26)
[2024-02-03] MEDS: DELTASONE 40 MG PO (09:26)
[2024-02-03] MEDS: LIPITOR 10 MG PO (09:26)
[2024-02-03] MEDS: BACTRIM 400 MG/80 MG 1 TABLET PO (09:26)
[2024-02-03] MEDS: PROTONIX 40 MG PO (09:27)
[2024-02-03] MEDS: LASIX 20 MG PO (09:27)
[2024-02-03] MEDS: ALDACTONE 12.5 MG PO (09:28)
[2024-02-03] MEDS: JARDIANCE 10 MG PO (09:28)
[2024-02-03] MEDS: COREG 6.25 MG PO ×2 (09:29→20:20)
[2024-02-03] MEDS: PACERONE 200 MG PO (09:29)
[2024-02-03] MEDS: ANUSOL HC RECTAL ×2 (09:30→20:20)
[2024-02-03 10:01] LABS: Hematocrit 35.3 % (39.0-52.0); Hemoglobin 12.6 g/dL (13.0-18.0); Mean Corp Hgb Conc. 35.7 g/dL (33.0-37.0); Mean Corpuscular Hgb 31.2 pg (27.0-31.0); Mean Corpuscular Volume 87.4 fL (80.0-94.0); Mean Platelet Volume 11.9 fL (7.4-10.4); Platelet Count 156 10^3/uL (130-400); Red Blood Cell Count 4.04 10^6/uL (4.70-6.10); Red Cell Dist. Width 14.8 % (11.5-14.5)
[2024-02-03 10:07] LABS: Magnesium 2.5 mg/dl (1.6-2.3); Phosphorus 3.2 mg/dl (2.5-4.5)
[2024-02-03 10:24] LABS: Blood Urea Nitrogen 47 mg/dl (9-20); Calcium 7.8 mg/dl (8.4-10.2); Carbon Dioxide 22 mmol/L (22-30); Chloride 104 mmol/L (98-107); Estimated Creatinine Clearance 64 ml/min; Glucose 185 mg/dl (70-99); Potassium 3.7 mmol/L (3.5-5.1); Sodium 133 mmol/L (135-145); eGFR > 60.00
--- NOTE | 2024-02-03 11:36 | W.PN.CARDCBS ---
Addendum entered and electronically signed by Mark Esteban MD 02/03/24 15:35:
I saw and examined the patient.
The [employer] Records Analyst's note was reviewed and I agree with the note.
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
Has required supplemental oxygen throughout his hospitalization however respiratory status seems somewhat improved with steroids, nebulizers and IV diuresis
Volume status is reasonable today, would continue p.o. Lasix dosing
Due to EMEKA Entresto remains on hold, can consider resuming tomorrow alternatively this could be done as an outpatient
Episode of tachycardia this morning around the time of a bowel movement
Patient was in atrial fibrillation with rapid ventricular response but then spontaneously converted to sinus rhythm
Wide-complex tachycardia was noted, it is unclear to me if this is A-fib with aberrant conduction or nonsustained VT
In either event, would continue oral beta-akosua and amiodarone, replete electrolytes and monitor on telemetry
If he has further salvos could consider increasing amiodarone dosing and arrange for ICD interrogation
Original Note:
Today's Communication / Plan
-
Follow on telemetry
Replete potassium
Continue Coreg, amiodarone, Xarelto
Continue Lasix, Jardiance, spironolactone. Likely resume Entresto as outpatient if able
BMP in 1 week
Wean supplemental O2 as able
Outpatient cardiac follow-up arranged
Impression / Plan
-
Primary Stucco Applicator: Dr. Fam
Dr. Ced Mora: ([place] [facility] sarcoid), phone [phone]
Impression:
Presented 01/20/2024 with cough, shortness of breath, runny nose and sore throat x 12 days
Respiratory failure-acute hypoxemic due to community-acquired pneumonia
Covid positive-symptom onset nearly 2 weeks ONLINE MARKETING COORDINATOR
COPD with mild acute exacerbation
Abnormal troponin, 0.043
EMEKA
Hyperglycemia
Short run of atrial fibrillation earlier in admission
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
H/o Syncope due to VT s/p shock x1 in ES 04/24/23
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
H/o Ventricular tachycardia
Status post Medtronic DC ICD placement 04/26/2023
Nonischemic Cardiomyopathy, EF 35-40% by echo 03/2023
Nonobstructive CAD by cath 2022
Hypertension
Hyperlipidemia
PVCs
Morbid obesity
COPD/Former tobacco use
Daily ETOH use (3-4 hard liquors/day)
Hx PE 1983, 1999, on chronic xarelto
Chronic OAC with xarelto
Cardiac cath 04/25/2023: LM: Luminal Irregularities, Ramus: Normal, LCx: normal, RCA: LI, LVEF: 30% global HK and posterior basal HK. 1+MR
Cath 2014: nonobstructive CAD
ECHO 09/2022: EF 45-50%, mild concentric LVH, focal calcification of anterior mitral valve leaflet, mild MR, trace TR, PAP 39 mmHg
ECHO 04/25/23: EF 35 to 40%, basal to mid inferior and inferolateral akinesis, mild global hypokinesis, stage I diastolic dysfunction, moderate eccentric MR, mild TR, PAP 26 to 31 mmHg, mildly dilated aortic root
Cardiac MRI 04/26/2023: Severe thickening and transmural enhancement in the inferolateral and inferior whitten of the left ventricle CW previous [place]. Focal subendocardial enhancement 50 to 75% of myocardial thickness. Global LV HK.
PET scan-[facility]-05/16/23-increased metabolic activity at the left cardiac border/left ventricle, indicating active disease-sarcoidosis, which correlates with a cardiac MRI findings, hilar and mediastinal lymphadenopathy with increased
metabolic activity indicates active disease as well, cardiac SUV ranging 2.8-3/3, mediastinal, hilar SUV ranging 2.3-3.16 and right hilar lymph node, SUV 3.06, no abnormal pulmonary uptake
PET scan revealed myocardial involvement and mild hilar involvement but no pulmonary parenchymal involvement of sarcoidosis.
ECHO 01/22/24: EF visually 35 to 40%, EF 40 to 45% by Dunbar's, inferior wall hypokinetic and basal inferolateral wall akinetic, mild LVH, ICD noted, mild to moderate MR, trace TR, PAP 30 to 35 mmHg, no significant change compared to prior echo
IMPRESSION:
-With bowel movement today, was noted to have heart rate up into the 130s. With this became diaphoretic per nursing. By review of telemetry either NSVT or A-fib with aberrancy. He has history of both atrial fibrillation, as well as VT on chronic
amiodarone therapy. now presently back in sinus rhythm. Will follow on telemetry. Could consider increasing amiodarone dose if recurrence noted
-Continue Coreg, amiodarone, Xarelto
-EF 35-40% by echo 01/21. Blood pressure is marginal on current regimen and with hyperkalemia earlier in admission, now low at 3.7. will give 10mEq KCl. Will continue p.o. Lasix 20 mg daily, jardiance, and spironolactone 12.5 mg daily. Will
continue to hold Entresto for now, and consider resuming as an outpatient
-he will need BMP in 1 week upon DC
-of note, he is on chronic bactrim in addition
-hgb 12.6. Had some rectal bleeding earlier in admission, felt most likely to be hemorrhoidal. Continue Xarelto. Will follow
-He continues with desaturations with ambulation, however quickly recovers with increased oxygen. currently on 5L NC. Continue supportive care of covid illness
-plan for SNF upon DC. OP cardiac follow up arranged
HPI 01/22/2024:
Patient is a 73 yo M with PMH of nonischemic cardiomyopathy with EF 35 to 40% by echo/cath 04/2023, hypertension, hyperlipidemia, PVCs, VT s/p Medtronic dual-chamber ICD, cardiac sarcoidosis on chronic steroids, history of PE on chronic
anticoagulation with Xarelto who presented 01/20/2024 to [facility] with cough, shortness of breath, sore throat and runny nose. Patient was recently in [place] for a prolonged trip when he developed the symptoms x ~2 weeks. On presentation
to the emergency department patient was found to be hypoxic requiring oxygen and tested positive for COVID an imaging showed evidence of pneumonia. He was not a remdesivir candidate and therefore was was started on IV steroids, bronchodilator
therapy, and IV antibiotic. Troponin 0.043 at peak repeat now undetectable. EKG on presentation showed sinus rhythm. Patient developed worsening oxygen demand requiring transfer to ICU on 01/22/2024. Concern for possible heart failure prompting
cardiology consult. proBNP 259 on 01/20/2024 with with repeat 369 01/22/2024. Patient did get 1 dose of IV Lasix on 01/21/2024.
Progress Note - Stucco Applicator
Subjective
Date of Service: February 03, 2024
With episode of diaphoresis and tachycardia with BM this morning
Objective
Labs:
02/03/24 09:42
02/03/24 09:42
Labs
Hgb 12.6 g/dL (13.0-18.0) L 02/03/24 09:42
Hct 35.3 % (39.0-52.0) L 02/03/24 09:42
Plt Count 156 10^3/uL (130-400) 02/03/24 09:42
PT 21.3 Sec (11.4-14.6) H 01/22/24 12:19
INR 1.87 01/22/24 12:19
APTT 33.9 Sec (23.4-35.0) 01/22/24 12:19
Sodium 133 mmol/L (135-145) L 02/03/24 09:42
Potassium 3.7 mmol/L (3.5-5.1) 02/03/24 09:42
BUN 47 mg/dl (9-20) H 02/03/24 09:42
Creatinine 1.2 mg/dL (0.7-1.3) 02/03/24 09:42
Glucose 185 mg/dl (70-99) H 02/03/24 09:42
Vital Signs and I&O:
Vital Signs
Temp Pulse Resp BP Pulse Ox
97.7 F 88 16 106/64 95
02/03/24 07:35 02/03/24 09:29 02/03/24 07:50 02/03/24 09:29 02/03/24 07:50
Vital Signs
Temp Pulse Resp BP Pulse Ox
97.7 F 88 16 106/64 95
02/03/24 07:35 02/03/24 09:29 02/03/24 07:50 02/03/24 09:29 02/03/24 07:50
Intake & Output
02/01/24 02/02/24 02/03/24 02/04/24
07:59 07:59 07:59 07:59
Intake Total 1290 / 1290 1240 / 1240 520 / 520
Output Total 1800 / 1800 2400 / 2400 450 / 450
Balance -510 / -510 -1160 / -1160 70 / 70
--- NOTE | 2024-02-03 12:21 | W.PN.HOSP.TC ---
Today's Communication/Plan
-
cont monitoring on oral prednisone for 24h, if O2 requirements not increasing - can d/c to STR if stable
Short run of RVR while on the commode
Assessment / Plan
Assessment / Plan
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 Symptoms onset around 01/19/24. Managed on steroids with improving respiratory requirements. Accidental finding of R
adrenal lesion that increased in size from 1.7 to 2.3cm since 2020.
Developed BRBPR on 01/30/24 and hyperkalemia, resolved by withholding meds. SInce bleeding contributed to hemorrhoids and hgb stable - GI agreed with the restarting of the Xarelto. Switched to Prednisone on 02/02/24, cont to monitor O2 requirements,
plan to [facility] on 02/04/24
A/P:
#Acute hypoxic respiratory failure 2/2 COVID-19 pneumonia
ID and pulmonology follows
Steroids as per pulm - slow taper
Bronchodilators
Completed 3 days of Abx
cont to wean off O2
CT neg for PE
#Lower GIB most likely hemorrhoidal
Suppositories
BRBPR on 01/30/24
PPI
CTA abd/pelvis without signs of bleeding
GI consult: ok to restart xarelto when bleeding subsides (started as of 02/01/24)
#Hyperkalemia
Hold Entresto and Spironolactone
recall Cardiology
watch CMP since pt is on Bactrim
#Cardiac sarcoidosis on chronic steroids
#Chronic HFrEF
#Afib, unspecified
cont ppx Bactrim
Cardiology followed - advised outpatient follow up with existent specialist
COnt Lasix, xarelto
#Hyponatremia, mild
follow BMP
#R adrenal lesion
Need MRI and hormonal blood test workup by PCP - patient verbalized understanding and noted instructions in his notebook
DVT ppx SCDs
Full code
I have spent at least 37min reviewing chart, test results, communication with consultants and direct patient care
Anticipated Discharge: Within 24 hours
Subjective/Interval History
-
Date of Service: February 03, 2024
Objective Data
-
Labs:
Laboratory Results
02/03/24
09:42
WBC 24.0 H
Hgb 12.6 L
Hct 35.3 L
Plt Count 156
Sodium 133 L
Potassium 3.7
Chloride 104
Carbon Dioxide 22
BUN 47 H
Creatinine 1.2
Glucose 185 H
Calcium 7.8 L
Vital Signs:
Vital Signs
Temp Pulse Resp BP Pulse Ox
97.7 F 88 16 106/64 95
02/03/24 07:35 02/03/24 09:29 02/03/24 07:50 02/03/24 09:29 02/03/24 07:50
I&O
02/02/24 02/03/24 02/04/24
06:59 06:59 06:59
Intake Total 1240 / 1240 520 / 520
Output Total 2400 / 2400 450 / 450
Balance -1160 / -1160 70 / 70
Review of Systems
-
History Source: Patient
All other systems: Reviewed and negative
Physical Exam
-
General: No Apparent Distress
HEENT: Normocephalic and Atraumatic
Cardiac: Regular Rhythm
GI: Soft, Nontender and Nondistended
Genito-urinary: No Costovertebral Tender
Musculoskeletal: No Clubbing, No Cyanosis and No Edema
Skin: Warm
Neuro: Awake, Alert and Oriented
Psych: Calm
--- NOTE | 2024-02-03 12:41 | PTCARENOTE ---
This morning when patient was moving his bowels on the bedside commode he became diaphoretic, dyspneic and his heart rate converted to uncontrolled afib in the 130s. Patient placed back in bed and ekg completed. Cardiology and hospitalist notified.
Labs completed stat. Patients heart rate is now Sinus with PVCs. Patient is resting in bed at this time denying pain when asked. Educated about plan of care.
[2024-02-03] MEDS: KCL 10 MEQ PO (12:47)
[2024-02-03] MEDS: XARELTO 20 MG PO (20:20)
[2024-02-03] MEDS: ProAIR HFA INHALER 2 PUFF INH (21:06)
--- NOTE | 2024-02-03 22:54 | PTCARENOTE ---
NO assessment changes. aaox3, pleasant. OOB to chair. MARIEE, remains on 3LMF. Desat to 83% but recovered to 90% within minutes. Meds given. NSR PVC BBB on monitor. NO afib at this time. Denies pain. Will continue to monitor.
[2024-02-04] VITALS (15 sets, daily range): BP systolic 104–149; BP diastolic 65–101; PULSE 79–85; O2SAT 93; BMI 31.1
[2024-02-04 05:57] LABS: Blood Urea Nitrogen 46 mg/dl (9-20); Carbon Dioxide 28 mmol/L (22-30); Estimated Creatinine Clearance 59 ml/min; Potassium 4.1 mmol/L (3.5-5.1); eGFR 58.37
[2024-02-04 06:08] LABS: Calcium 7.8 mg/dl (8.4-10.2); Chloride 105 mmol/L (98-107); Glucose 109 mg/dl (70-99); Sodium 136 mmol/L (135-145)
[2024-02-04] MEDS: ADVAIR HFA 230/21 MCG INHALER 2 PUFF INH (07:24)
[2024-02-04] MEDS: SPIRIVA RESPIMAT 2.5 MCG 2 PUFF INH (07:24)
[2024-02-04] MEDS: DELTASONE 40 MG PO (07:38)
[2024-02-04] MEDS: B COMPLEX w/VITAMIN C 1 CAPLET PO (07:39)
[2024-02-04] MEDS: COREG 6.25 MG PO (07:39)
[2024-02-04] MEDS: THERAGRAN 1 TABLET PO (07:40)
[2024-02-04] MEDS: PROTONIX 40 MG PO (07:40)
[2024-02-04] MEDS: ALDACTONE 12.5 MG PO (07:40)
[2024-02-04] MEDS: BACTRIM 400 MG/80 MG 1 TABLET PO (07:40)
[2024-02-04] MEDS: JARDIANCE 10 MG PO (07:40)
[2024-02-04] MEDS: PACERONE 200 MG PO (07:40)
[2024-02-04] MEDS: LASIX 20 MG PO (07:40)
[2024-02-04] MEDS: LIPITOR 10 MG PO (07:40)
[2024-02-04] MEDS: ANUSOL HC RECTAL (07:42)
--- NOTE | 2024-02-04 08:15 | PTCARENOTE ---
Assumed care of patient at 0700. VSS. Apaced w/ PVCs on telemetry, HR 80s at rest. Assisted to BSC w/ RW and assist x1. MARIEE, oxygen level desats to low-mid 80s for the during of activity on 3L O2. After 10 minutes of recovery, Sao2 still ~85% on 3L.
Oxygen now up to 5L. SaO2 now 90% and slowly trending up. Will wean as able.
--- NOTE | 2024-02-04 10:45 | W.PN.HOSP.TC ---
Today's Communication/Plan
-
CM working on STR
Assessment / Plan
Assessment / Plan
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 Symptoms onset around 01/19/24. Managed on steroids with improving respiratory requirements. Accidental finding of R
adrenal lesion that increased in size from 1.7 to 2.3cm since 2020.
Developed BRBPR on 01/30/24 and hyperkalemia, resolved by withholding meds. SInce bleeding contributed to hemorrhoids and hgb stable - GI agreed with the restarting of the Xarelto. Switched to Prednisone on 02/02/24, was cont to monitor O2 requirements
and tachycardia. No signs of RVR on tele 24h before discharge plan. Patient O2 requirements improved - max needed 5L NC, medically ready to be discharged to [facility] if accepted, CM aware
A/P:
#Acute hypoxic respiratory failure 2/2 COVID-19 pneumonia
ID and pulmonology follows
Steroids as per pulm - slow taper
Bronchodilators
Completed 3 days of Abx
cont to wean off O2
CT neg for PE
#Lower GIB most likely hemorrhoidal
Suppositories
BRBPR on 01/30/24
PPI
CTA abd/pelvis without signs of bleeding
GI consult: ok to restart xarelto when bleeding subsides (started as of 02/01/24)
#Hyperkalemia
Hold Entresto and Spironolactone
recall Cardiology
watch CMP since pt is on Bactrim
#Cardiac sarcoidosis on chronic steroids
#Chronic HFrEF
#Afib, unspecified
cont ppx Bactrim
Cardiology followed - advised outpatient follow up with existent specialist
COnt Lasix, xarelto
#Hyponatremia, mild
follow BMP
#R adrenal lesion
Need MRI and hormonal blood test workup by PCP - patient verbalized understanding and noted instructions in his notebook
DVT ppx SCDs
Full code
I have spent at least 37min reviewing chart, test results, communication with consultants and direct patient care
Anticipated Discharge: Within 24 hours
Subjective/Interval History
-
Date of Service: February 04, 2024
Objective Data
-
Labs:
Laboratory Results
02/04/24
05:22
Sodium 136
Potassium 4.1
Chloride 105
Carbon Dioxide 28
BUN 46 H
Creatinine 1.3
Glucose 109 H
Calcium 7.8 L
Vital Signs:
Vital Signs
Temp Pulse Resp BP Pulse Ox
97.6 F 78 20 111/70 92
02/04/24 07:29 02/04/24 10:00 02/04/24 10:00 02/04/24 10:00 02/04/24 10:00
I&O
02/03/24 02/04/24 02/05/24
06:59 06:59 06:59
Intake Total 520 / 520 480 / 480
Output Total 450 / 450 1600 / 1600 450 / 450
Balance 70 / 70 -1120 / -1120 -450 / -450
Review of Systems
-
History Source: Patient
All other systems: Reviewed and negative
Physical Exam
-
General: No Apparent Distress
HEENT: Normocephalic, Atraumatic and Moist Mucous Membranes
Cardiac: Regular Rhythm
GI: Soft, Nontender and Nondistended
Genito-urinary: Costovertebral Angle Tend
Musculoskeletal: No Clubbing, No Cyanosis and No Edema
Skin: Warm
Neuro: Awake, Alert, Oriented and AO x 3
Psych: Calm
--- NOTE | 2024-02-04 12:00 | PTCARENOTE ---
Able to be weaned back down to 3L. SaO2 >90%.
--- NOTE | 2024-02-04 12:12 | CM ---
Addendum entered by Chen Lofton 02/04/24 15:33:
manager fast food spoke with Mehnaz at [facility] and received Auth for patient, 5 days skilled Auth [id number] 02/03 to 02/07. NRD 02/07 to [phone], Ambulance Auth for Acute care Ambulance [id number]
[facility]
Report [phone]

Addendum entered by Chen Lofton 02/04/24 15:03:
Call paced to patient's insurance to request Auth, corrections caseworker spoke with Larry waiting on a call back from insurance to proceed with Auth.
Original Note:
Chart reviewed and per physician patient is cleared for discharge today, corrections caseworker reviewed physical therapy notes and last notes are from 02/01, patient will need updated PT/OT notes in order to obtain Auth for skilled placement. Per Miriam at [facility] they have a bed for patient.
Plan; Await PT/OT to obtain Auth for patient.
--- NOTE | 2024-02-04 13:58 | W.PN.CARDCBS ---
Today's Communication / Plan
-
Resume Entresto
We will sign off, please recall as needed
Impression / Plan
-
Primary Orthodontic Band Maker: Dr. Fam
Dr. Ced Mora: ([facility] cardiac sarcoid), phone [phone]
Impression:
Presented 01/20/2024 with cough, shortness of breath, runny nose and sore throat x 12 days
Respiratory failure-acute hypoxemic due to community-acquired pneumonia
Covid positive-symptom onset nearly 2 weeks CVT TECH
COPD with mild acute exacerbation
Abnormal troponin, 0.043
EMEKA
Hyperglycemia
Short run of atrial fibrillation earlier in admission
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
H/o Syncope due to VT s/p shock x1 in ES 04/24/23
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
H/o Ventricular tachycardia
Status post Medtronic DC ICD placement 04/26/2023
Nonischemic Cardiomyopathy, EF 35-40% by echo 03/2023
Nonobstructive CAD by cath 2022
Hypertension
Hyperlipidemia
PVCs
Morbid obesity
COPD/Former tobacco use
Daily ETOH use (3-4 hard liquors/day)
Hx PE 1983, 1999, on chronic xarelto
Chronic OAC with xarelto
Cardiac cath 04/25/2023: LM: Luminal Irregularities, Ramus: Normal, LCx: normal, RCA: LI, LVEF: 30% global HK and posterior basal HK. 1+MR
Cath 2014: nonobstructive CAD
ECHO 09/2022: EF 45-50%, mild concentric LVH, focal calcification of anterior mitral valve leaflet, mild MR, trace TR, PAP 39 mmHg
ECHO 04/25/23: EF 35 to 40%, basal to mid inferior and inferolateral akinesis, mild global hypokinesis, stage I diastolic dysfunction, moderate eccentric MR, mild TR, PAP 26 to 31 mmHg, mildly dilated aortic root
Cardiac MRI 04/26/2023: Severe thickening and transmural enhancement in the inferolateral and inferior whitten of the left ventricle CW previous [place]. Focal subendocardial enhancement 50 to 75% of myocardial thickness. Global LV HK.
PET scan-[facility]-05/16/23-increased metabolic activity at the left cardiac border/left ventricle, indicating active disease-sarcoidosis, which correlates with a cardiac MRI findings, hilar and mediastinal lymphadenopathy with increased
metabolic activity indicates active disease as well, cardiac SUV ranging 2.8-3/3, mediastinal, hilar SUV ranging 2.3-3.16 and right hilar lymph node, SUV 3.06, no abnormal pulmonary uptake
PET scan revealed myocardial involvement and mild hilar involvement but no pulmonary parenchymal involvement of sarcoidosis.
ECHO 01/22/24: EF visually 35 to 40%, EF 40 to 45% by Dunbar's, inferior wall hypokinetic and basal inferolateral wall akinetic, mild LVH, ICD noted, mild to moderate MR, trace TR, PAP 30 to 35 mmHg, no significant change compared to prior echo
IMPRESSION:
-Telemetry showing NSR with PVCs. Episode of atrial fibrillation RVR on 02/02, wide complexes consistent with NSVT or aberrant conduction, has not recurred.
-Continue Coreg, amiodarone, Xarelto
-EF 35-40% by echo 01/21
-Continue p.o. Lasix 20 mg daily, jardiance, and spironolactone 12.5 mg daily
-Resume low dose Entresto
-BMP in 1 week upon DC
-Plan for SNF upon DC. OP cardiac follow up arranged.
Stable cardiac status, we will sign off, please recall as needed
Cardiac meds on discharge:
Amiodarone 200 mg daily
Atorvastatin 10 mg daily
Coreg 6.25mg twice daily
Jardiance 10 mg daily
Entresto twice daily
Rivaroxaban 20 mg daily
Spironolactone 12.5 mg daily
Lasix 20 mg daily
HPI 01/22/2024:
Patient is a 73 yo M with PMH of nonischemic cardiomyopathy with EF 35 to 40% by echo/cath 04/2023, hypertension, hyperlipidemia, PVCs, VT s/p Medtronic dual-chamber ICD, cardiac sarcoidosis on chronic steroids, history of PE on chronic
anticoagulation with Xarelto who presented 01/20/2024 to [facility] with cough, shortness of breath, sore throat and runny nose. Patient was recently in [place] for a prolonged trip when he developed the symptoms x ~2 weeks. On presentation
to the emergency department patient was found to be hypoxic requiring oxygen and tested positive for COVID an imaging showed evidence of pneumonia. He was not a remdesivir candidate and therefore was was started on IV steroids, bronchodilator
therapy, and IV antibiotic. Troponin 0.043 at peak repeat now undetectable. EKG on presentation showed sinus rhythm. Patient developed worsening oxygen demand requiring transfer to ICU on 01/22/2024. Concern for possible heart failure prompting
cardiology consult. proBNP 259 on 01/20/2024 with with repeat 369 01/22/2024. Patient did get 1 dose of IV Lasix on 01/21/2024.
Progress Note - Orthodontic Band Maker
Subjective
Date of Service: February 04, 2024
No acute overnight events. Resting comfortably out of bed to chair eating breakfast. Remains on supplemental oxygen. Remains in sinus rhythm on telemetry with PVCs, patient tells me he is unaware of the PVCs and does not experience palpitations.
Objective
Labs:
02/03/24 09:42
02/04/24 05:22
Labs
Hgb 12.6 g/dL (13.0-18.0) L 02/03/24 09:42
Hct 35.3 % (39.0-52.0) L 02/03/24 09:42
Plt Count 156 10^3/uL (130-400) 02/03/24 09:42
PT 21.3 Sec (11.4-14.6) H 01/22/24 12:19
INR 1.87 01/22/24 12:19
APTT 33.9 Sec (23.4-35.0) 01/22/24 12:19
Sodium 136 mmol/L (135-145) 02/04/24 05:22
Potassium 4.1 mmol/L (3.5-5.1) 02/04/24 05:22
BUN 46 mg/dl (9-20) H 02/04/24 05:22
Creatinine 1.3 mg/dL (0.7-1.3) 02/04/24 05:22
Glucose 109 mg/dl (70-99) H 02/04/24 05:22
Vital Signs and I&O:
Vital Signs
Temp Pulse Resp BP Pulse Ox
98.2 F 76 15 123/80 94
02/04/24 11:50 02/04/24 12:05 02/04/24 12:05 02/04/24 12:05 02/04/24 12:05
Vital Signs
Temp Pulse Resp BP Pulse Ox
98.2 F 76 15 123/80 94
02/04/24 11:50 02/04/24 12:05 02/04/24 12:05 02/04/24 12:05 02/04/24 12:05
Intake & Output
02/02/24 02/03/24 02/04/24 02/05/24
06:59 06:59 06:59 06:59
Intake Total 1240 / 1240 520 / 520 480 / 480
Output Total 2400 / 2400 450 / 450 1600 / 1600 850 / 850
Balance -1160 / -1160 70 / 70 -1120 / -1120 -850 / -850
Physical Exam
Physical Exam
Gen: NAD, AA
HEENT: NC/AT, sclera anicteric
Neck: No JVD
CV: RRR, NL s1/s2
Lungs: No increased work of breathing on supplemental oxygen via nasal cannula
Abd: S/ND
Ext: No LE edema
Skin: Warm, dry
Neuro: Non-focal
--- NOTE | 2024-02-04 15:40 | W.DCSUMMARY ---
Discharge Summary
Discharge Data
Date of Admission: 01/20/24
Date of Discharge: 02/04/24
-
Pending Results: No
Hospital Course
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 Symptoms onset around 01/19/24. Managed on steroids with improving respiratory requirements. Accidental finding of R
adrenal lesion that increased in size from 1.7 to 2.3cm since 2020.
Developed BRBPR on 01/30/24 and hyperkalemia, resolved by withholding meds. SInce bleeding contributed to hemorrhoids and hgb stable - GI agreed with the restarting of the Xarelto. Switched to Prednisone on 02/02/24, was cont to monitor O2 requirements
and tachycardia. No signs of RVR on tele 24h before discharge plan. Patient O2 requirements improved - max needed 5L NC, medically ready to be discharged to [facility]
I have spent at least 37min preparing d/c
Patient was managed for:
#Acute hypoxic respiratory failure 2/2 COVID-19 pneumonia
#Lower GIB most likely hemorrhoidal
#Hyperkalemia
#Cardiac sarcoidosis on chronic steroids
#Chronic HFrEF
#Afib, unspecified
#Cardiac sarcoidosis on chronic steroids
#Chronic HFrEF
#Afib, unspecified
#Hyponatremia, mild
#R adrenal lesion
Discharge Plan
-
Patient Disposition: Long-Term/SNF
Discharge Diagnosis/Procedures: COVID-19 pneumonia
Diet: Diabetic, Carb Controlled
Activity: As tolerated
Blood Work: BMP in 1 week
Specialty Instructions: Weigh Daily- Call MD for wt gain/loss 3 lbs overnight/5 lbs in 1 week
Activity Restrictions/Additional Instructions:
Follow up with your PCP for MRI adrenals
Hold Entresto until restarted by cardiology
Instructions: *DCA Heart Failure Instructions
Referrals:
Trev Fam MD [Active] - 02/28/24 8:40 am (You have an appt to see Dr[facility] Fam at [facility] on 02/28/24 at 8:40 AM. Please call [phone] if you need to reschedule.)
Matt Segovia MD [Active] - in three to four weeks (Please call for appt with Luca or SECURITY FIELD SUPERVISOR in 4 weeks)
Beth Modi PA-C [Specified Professional Personl] - 03/11/24 (follow up with Beth Modi PA-C in GI office to review for colonoscopy with recent bleeding and hx colon polyps)
Doyle Avila DO [Family Provider] -
Prescriptions:
New
prednisone 20 mg Tablet
40 mg PO DAILY Qty: 30 0RF
dextromethorphan-guaifenesin 10-100 mg/5 mL Syrup
5 ml PO Q4HPRN PRN (Reason: cough) Qty: 200 0RF
hydrocortisone acetate 25 mg Suppository
25 mg GA BID Qty: 30 0RF
pantoprazole 40 mg Tablet,Delayed Release (Dr/Ec)
40 mg PO DAILY Qty: 30 0RF
furosemide 20 mg Tablet
20 mg PO DAILY Qty: 30 0RF
fluticasone propion-salmeterol 230-21 mcg/actuation Hfa Aerosol Inhaler
2 puff inhalation R BID Qty: 1 0RF
Spiriva Respimat 2.5 mcg/actuation Mist
2 puff inhalation R DAILY Qty: 1 0RF
Continued
carvedilol 6.25 MG tablet
6.25 mg PO BID Qty: 60 11RF
atorvastatin 10 mg tablet
10 mg PO DAILY
vitamin B complex Tablet
1 tab PO DAILY
Xarelto 20 mg tablet
20 mg PO HS
Jardiance 10 mg Tablet
10 mg PO DAILY Qty: 30 0RF
sulfamethoxazole-trimethoprim [Bactrim] 400-80 mg Tablet
1 tab PO DAILY
amiodarone [Pacerone] 200 mg tablet
200 mg PO DAILY
therapeutic multivitamin Tablet
1 tab PO DAILY
spironolactone 25 mg Tablet
12.5 mg PO DAILY
Systane (PF) 0.4-0.3 % Dropperette
1 drp BOTH EYES Q6HPRN PRN (Reason: dry eyes)
Entresto 24-26 mg Tablet
1 tab PO BID
Eylea HD 8 mg/0.07 mL Solution
8 mg INTRAVITREAL Q4W
Discontinued
prednisone 10 mg Tablet
40 mg PO DAILY
Discharge Orders:
Discharge Patient (As Directed); Ordered 02/04/24
Ordered By: Georgi Randall
Discharge Date and Time
Print Language: MONGOLIAN
== END 2024-02-04 18:59 | DRG 871 ==
LOC: IMU 14:40
PROVIDERS: Clinical Nurse Specialist Family Health; Hospitalist; Internal Medicine Critical Care Medicine; Nurse Practitioner Family; Nurse Practitioner Primary Care; Physician Assistant; ADMITTING PHYSICIAN Internal Medicine; ATTENDING PHYSICIAN Internal Medicine; CONSULT PHYSICIAN Internal Medicine Critical Care Medicine; CONSULT PHYSICIAN Internal Medicine Gastroenterology; CONSULT PHYSICIAN Internal Medicine Infectious Disease; CONSULT PHYSICIAN Nuclear Medicine Nuclear Cardiology; EMERGENCY PHYSICIAN Emergency Medicine; FAMILY PHYSICIAN Internal Medicine
DX: A41.89 Other specified sepsis (principal); J12.82 Pneumonia due to coronavirus disease 2019; U07.1 COVID-19; J96.01 Acute respiratory failure with hypoxia; J44.1 Chronic obstructive pulmonary disease with (acute) exacerbation; I50.22 Chronic systolic (congestive) heart failure; I42.8 Other cardiomyopathies; J98.11 Atelectasis; N17.9 Acute kidney failure, unspecified; E87.1 Hypo-osmolality and hyponatremia; D84.9 Immunodeficiency, unspecified; B97.29 Other coronavirus as the cause of diseases classified elsewhere; E66.01 Morbid (severe) obesity due to excess calories; D86.0 Sarcoidosis of lung; D86.85 Sarcoid myocarditis; I11.0 Hypertensive heart disease with heart failure; I48.0 Paroxysmal atrial fibrillation; Z68.31 Body mass index [BMI] 31.0-31.9, adult; I25.2 Old myocardial infarction; Z79.52 Long term (current) use of systemic steroids; Z79.01 Long term (current) use of anticoagulants; Z95.810 Presence of automatic (implantable) cardiac defibrillator
CPT/HCPCS: 71045; 71046; 71275; 74174; 80048; 80053; 80061; 82248; 82805; 82962; 83615; 83735; 83880; 83930; 83935; 84100; 84145; 84300; 84443; 84484; 85014; 85018; 85025; 85027; 85610; 85652; 85730; 86140; 87070; 87205; 87449; 87811; 87899; 93005; 93306; 93970; 94640; 94761; 96365; 96375; 97110; 97116; 97163; 97164; 97166; 97168; 97530; 97535; 99285; Q9967

== ENCOUNTER → 2024-02-06 10:25 | Outpatient (REF) | payer OTHER, SELFPAY ==
[2024-02-06 11:40] LABS: Hematocrit 33.4 % (39.0-52.0); Hemoglobin 11.3 g/dL (13.0-18.0); Mean Corp Hgb Conc. 33.8 g/dL (33.0-37.0); Mean Corpuscular Hgb 30.7 pg (27.0-31.0); Mean Corpuscular Volume 90.8 fL (80.0-94.0); Mean Platelet Volume 11.8 fL (7.4-10.4); Platelet Count 102 10^3/uL (130-400); Red Blood Cell Count 3.68 10^6/uL (4.70-6.10); Red Cell Dist. Width 15.3 % (11.5-14.5)
[2024-02-06 11:45] LABS: Blood Urea Nitrogen 28 mg/dl (9-20); Calcium 7.6 mg/dl (8.4-10.2); Carbon Dioxide 23 mmol/L (22-30); Chloride 107 mmol/L (98-107); Glucose 67 mg/dl (70-99); Potassium 3.8 mmol/L (3.5-5.1); Sodium 136 mmol/L (135-145); eGFR > 60.00
[2024-02-06 12:11] LABS: % Basophils 0.3 % (0-2); % Eosinophils 0.1 % (0-6); % Lymphocytes 3.9 % (20.5-51.1); % Monocytes 2.5 % (1.7-9.3); % Neutrophils 83.2 % (42.2-75.2); Absolute Basophils 0.1 10^3/uL (0-0.2); Absolute Immature Granulocytes 1.8 10^3/uL (0-0.05); Absolute Lymphocytes 0.7 10^3/uL (1.2-3.4); Absolute Monocytes 0.5 10^3/uL (0.1-0.6); Nucleated Red Blood Cells % 0 % (-)
== END ==
LOC: OLABP 10:25
PROVIDERS: ATTENDING PHYSICIAN Family Medicine
DX: J96.01 Acute respiratory failure with hypoxia (principal); N07.1 Hereditary nephropathy, not elsewhere classified with focal and segmental glomerular lesions; E27.8 Other specified disorders of adrenal gland; K62.5 Hemorrhage of anus and rectum; E87.5 Hyperkalemia; E87.1 Hypo-osmolality and hyponatremia; M62.81 Muscle weakness (generalized); D86.85 Sarcoid myocarditis; I11.0 Hypertensive heart disease with heart failure; I48.0 Paroxysmal atrial fibrillation; I50.20 Unspecified systolic (congestive) heart failure; L44.1 Lichen nitidus; Z95.810 Presence of automatic (implantable) cardiac defibrillator
CPT/HCPCS: 36415; 80048; 85025

== ENCOUNTER → 2024-02-12 13:11 | Outpatient (REF) | payer OTHER, SELFPAY ==
[2024-02-12 13:49] LABS: Blood Urea Nitrogen 28 mg/dl (9-20); Calcium 7.8 mg/dl (8.4-10.2); Carbon Dioxide 23 mmol/L (22-30); Chloride 103 mmol/L (98-107); Glucose 80 mg/dl (70-99); Magnesium 2.1 mg/dl (1.6-2.3); Potassium 3.6 mmol/L (3.5-5.1); Sodium 135 mmol/L (135-145); eGFR > 60.00
[2024-02-12 13:53] LABS: % Basophils 0.2 % (0-2); % Eosinophils 0.3 % (0-6); % Immature Granulocytes 3.9 % (0-0.5); % Lymphocytes 5.7 % (20.5-51.1); % Monocytes 2.5 % (1.7-9.3); % Neutrophils 87.4 % (42.2-75.2); Absolute Immature Granulocytes 0.5 10^3/uL (0-0.05); Absolute Lymphocytes 0.7 10^3/uL (1.2-3.4); Absolute Monocytes 0.3 10^3/uL (0.1-0.6); Absolute Neutrophils 10.2 10^3/uL (1.4-6.5); Hematocrit 32.2 % (39.0-52.0); Mean Corp Hgb Conc. 34.2 g/dL (33.0-37.0); Mean Corpuscular Hgb 31.9 pg (27.0-31.0); Mean Corpuscular Volume 93.3 fL (80.0-94.0); Nucleated Red Blood Cells % 0.3 % (-); Red Blood Cell Count 3.45 10^6/uL (4.70-6.10); Red Cell Dist. Width 17.7 % (11.5-14.5); White Blood Cell Count 11.7 10^3/uL (4.8-10.8)
[2024-02-12 14:15] LABS: Mean Platelet Volume 11.9 fL (7.4-10.4); Platelet Count 57 10^3/uL (130-400)
== END ==
LOC: OLABP 13:11
PROVIDERS: ATTENDING PHYSICIAN Family Medicine
DX: J96.01 Acute respiratory failure with hypoxia (principal); U07.1 COVID-19; E27.8 Other specified disorders of adrenal gland; K62.5 Hemorrhage of anus and rectum; E87.5 Hyperkalemia; E87.1 Hypo-osmolality and hyponatremia; I11.0 Hypertensive heart disease with heart failure; I50.20 Unspecified systolic (congestive) heart failure; J44.1 Chronic obstructive pulmonary disease with (acute) exacerbation; I48.0 Paroxysmal atrial fibrillation; D86.85 Sarcoid myocarditis
CPT/HCPCS: 36415; 80048; 83735; 85025

== ENCOUNTER → 2024-04-30 10:07 | Outpatient (REF) | payer OTHER, SELFPAY | LOC: WOUND 10:07 | PROVIDERS: ATTENDING PHYSICIAN Surgery | DX: L97.512 Non-pressure chronic ulcer of other part of right foot with fat layer exposed (principal); J44.9 Chronic obstructive pulmonary disease, unspecified; I47.20 Ventricular tachycardia, unspecified; E66.9 Obesity, unspecified; Z87.891 Personal history of nicotine dependence; Z95.810 Presence of automatic (implantable) cardiac defibrillator | CPT/HCPCS: 99214 ==

== ENCOUNTER → 2024-05-02 13:25 | Outpatient (REF) | payer OTHER, SELFPAY | LOC: MRI 13:25 | PROVIDERS: ATTENDING PHYSICIAN Internal Medicine | DX: D35.01 Benign neoplasm of right adrenal gland (principal) | CPT/HCPCS: 74183; A9575 ==

== ENCOUNTER → 2024-05-14 10:46 | Outpatient (REF) | payer OTHER, SELFPAY | LOC: WOUND 10:46 | PROVIDERS: ATTENDING PHYSICIAN Surgery; FAMILY PHYSICIAN Internal Medicine | DX: L97.512 Non-pressure chronic ulcer of other part of right foot with fat layer exposed (principal); J44.9 Chronic obstructive pulmonary disease, unspecified; I47.20 Ventricular tachycardia, unspecified; E66.9 Obesity, unspecified; Z95.810 Presence of automatic (implantable) cardiac defibrillator; Z87.891 Personal history of nicotine dependence | CPT/HCPCS: 99213 ==

== ENCOUNTER 2024-05-20 08:59 | Outpatient (RCR) | payer OTHER, SELFPAY | END 2024-05-20 23:59 | disposition home or self-care (01) | LOC: RPT 08:59 | PROVIDERS: ATTENDING PHYSICIAN Internal Medicine | DX: R53.1 Weakness (principal); Z73.6 Limitation of activities due to disability; R26.2 Difficulty in walking, not elsewhere classified; I42.0 Dilated cardiomyopathy; J44.9 Chronic obstructive pulmonary disease, unspecified; Z86.11 Personal history of tuberculosis; Z86.16 Personal history of COVID-19 | CPT/HCPCS: 73630; 97110; 97112; 97163; 97530 ==

== ENCOUNTER 2024-06-05 10:56 | Outpatient (RCR) | payer OTHER, SELFPAY | END 2024-06-17 12:49 | disposition home or self-care (01) | LOC: RPT 10:56 | PROVIDERS: ATTENDING PHYSICIAN Internal Medicine | DX: R53.1 Weakness (principal); Z73.6 Limitation of activities due to disability; R26.2 Difficulty in walking, not elsewhere classified; I42.0 Dilated cardiomyopathy; J44.9 Chronic obstructive pulmonary disease, unspecified; Z86.16 Personal history of COVID-19; Z86.11 Personal history of tuberculosis | CPT/HCPCS: 97110; 97112; 97530 ==

== ENCOUNTER → 2024-06-06 13:55 | Outpatient (REF) | payer OTHER, SELFPAY | LOC: HWRAD 13:55 | PROVIDERS: ATTENDING PHYSICIAN Internal Medicine Critical Care Medicine; FAMILY PHYSICIAN Internal Medicine | DX: Z87.891 Personal history of nicotine dependence (principal) | CPT/HCPCS: 71271 ==

== ENCOUNTER 2024-06-11 10:44 | Inpatient (IN) | payer OTHER, SELFPAY ==
[2024-06-11] VITALS (36 sets, daily range): BP systolic 89–128; BP diastolic 50–80; BMI 33.9; BMI 32.5
--- NOTE | 2024-06-11 07:50 | ED TECH ---
A STROKE ALERT was called#[id number]# Per @7:44 AM. Cat Scan Notified.
--- NOTE | 2024-06-11 07:54 | ED.CVA ---
History of Present Illness
General
Chief Complaint: CVA/TIA Symptoms
Time Seen by Provider: 06/11/24 07:52
Onset of Stroke Symptoms
Onset of symptoms known: No
Date of onset of symptoms: 06/11/24
Time pt last seen normal is known: Yes
Date last time pt seen normal: 06/11/24
Time last time pt seen normal: 03:30
History of Present Illness
History of Present Illness:
TIME OF INITIAL ENCOUNTER: 7:48 AM
HPI:
The patient was seen as a stroke alert. The details are somewhat limited as the patient is somewhat of a poor historian and EMS crew that got the initial story from another crew was given a poor history. Apparently, the patient was last seen well
around 330 this morning. He is on Xarelto. There was concern for left-sided weakness and slurred speech. There is also report of COVID but timing of this is unclear.
EXAM:
GENERAL: Well appearing in no distress
HEENT: Moist oral mucosa
CARDIOVASCULAR: No murmurs, normal heart rate, regular rhythm, No chest wall tenderness
PULMONARY: No respiratory distress, breath sounds are clear and equal
ABDOMEN: Soft with no peritoneal signs, no tenderness
NEUROLOGIC: The patient has limited coordination and strength of the left upper extremity, mild dysarthria, there is also poor strength of the left lower extremity, he is oriented to month and place, he seems to have left-sided neglect
PSYCHIATRIC: Appropriate mental status, normal insight and judgement
EXTREMITIES: Nontender, no edema, moves all extremities equally
SKIN: No rash, no lesions
NUMBER AND COMPLEXITY OF PROBLEMS ADDRESSED AT THE ENCOUNTER
� Chronic conditions affecting care: Has had PE, COPD, A-fib on Xarelto, CHF, cardiomyopathy, GERD, basal cell carcinoma
� Acute Exacerbation and/or Progression of Chronic Illness: This is an acute problem
� Differential Diagnosis includes: CVA/TIA, intracranial hemorrhage, intracranial mass
AMOUNT AND/OR COMPLEXITY OF DATA TO BE REVIEWED AND ANALYZED
� I performed an independent evaluation of and my interpretation is:
EKG: Sinus 72, PVCs
CT: Noncontrast CT brain unremarkable; I reviewed radiologist interpretation of CTA head neck
X-rays:
Laboratory Studies: White count 11.6, hemoglobin 10.8, bicarb 20, creatinine 1.5
Other:
� Review of other/old records: I reviewed records, a few months ago, creatinine was normal
� Clinical information was obtained by an independent historian: I spoke to the at bedside
� Prescriptions/Medications Considered but not given: TNK not indicated the patient is on Xarelto
� Further testing considered but not performed:
RISK OF COMPLICATIONS AND/OR MORBIDITY OR MORTALITY OF PATIENT MANAGEMENT
� Social determinants of health affecting care: Lives at home
� Discussion with other providers: I discussed case with Dr. Man who evaluated patient in the Emergency Department and is arranging for emergent EEG; hospitalist for admission
� Escalation of care including admission/observation vs risk of discharge considered: Given the patient's neurologic deficits, will be admitted to the hospital.
ANY OTHER UPDATES:
Past History
Past History
ED Past Medical History: Arrthythmia (Paroxysmal atrial fibrillation), Cancer (Basal cell skin cancer), CHF, COPD, GERD, HTN, Hypercholesterolemia and Other (Sarcoidosis, PE)
ED Past Surgical History: Orthopedic (Left knee); Negative Cardiac (Cardiac catheterization December 2014, nonocclusive CAD)
Social History
Tobacco: Former smoker
Alcohol: Daily
Drug: None
Personal:
Living: with family
Employment: Retired
Family History
Family History: Hypertension
Phy Exam
Physical Exam
Physical Exam:
See HPI
Scores
NIH Stroke Score
Level of Consciousness: 0 - Alert
LOC Questions: 0-Answers both correctly
LOC Commands: 0-Performs both correctly
Best Horizontal Gaze: 0-Normal
Visual Nevarez: 0=Normal, no visual loss
Facial Palsy: 1=Minor paralysis
Motor - Right Arm: 0=No drift 10 seconds
Motor - Left Arm: 2=Partial vs. gravity
Motor - Right Le-No drift 5 seconds
Motor - Left Le-Drift < 5 seconds
Limb Ataxia: 2-Present in two limbs
Sensation: 0-Normal
Best Language: 0-No aphasia
Dysarthria: 1-Mild slurring
Extinction and Inattention: 2-Total prince inattention
Total Score:: 9
Course
Orders/Labs/Results
Orders:
Orders
06/11/24 07:52
CT HEAD STROKE ALERT W/o Cont Urgent
Comment:
Reason For Exam: acute L weak dysarthria
CT HEAD/NECK ANG STROKE ALERT Urgent
Comment:
Reason For Exam: acute L weak dysarthria
06/11/24 08:01
Electrocardiogram (*1) Urgent
Reason for Study: TIA/Stroke
EKG- Treatment ONCE
06/11/24 08:30
Complete Blood Count/With Diff Urgent
Comprehensive Metabolic Panel Urgent
06/11/24 08:33
0.9% Sodium Chloride 1000 ml [Nss] 1,000 ml IV BOLUS
06/11/24 08:42
EEG Routine Routine
Reason for Exam: R frontal meningioma, left sided weakness
06/11/24 09:02
MR Brain Without Contrast Routine
Comment:
Reason For Exam: R MCA syndrome
OK for patient to be off Cardiac Monitoring for MRI: No
Recent pill cam endoscopy?: No
Pacemaker/Defibrillator?: Yes
Is the pacemaker a conditional type?: Yes
06/11/24 09:03
Hemoglobin A1c [Glycohemoglobin (HgbA1c)] Routine
Lipid Profile [Cardiovascular Evaluation] Routine
06/11/24 09:04
Echo 2D MMode Color/Doppler Routine
Reason for Study: Thrombotic source for stroke-like sxs
06/11/24 10:00
Aspirin Low Dose EC [Aspir Low (Enteric Coated)] 81 mg PO DAILY
06/11/24 18:00
Atorvastatin [Lipitor] 40 mg PO QPM
Abnormal Lab Results
06/11/24 06/11/24
07:56 08:30
WBC 11.6 H 10^3/uL
(4.8-10.8)
RBC 3.50 L 10^6/uL
(4.70-6.10)
Hgb 10.8 L g/dL
(13.0-18.0)
Hct 33.2 L %
(39.0-52.0)
MCV 94.9 H fL
(80.0-94.0)
MCHC 32.5 L g/dL
(33.0-37.0)
RDW 15.7 H %
(11.5-14.5)
Plt Count 109 L 10^3/uL
(130-400)
MPV 11.4 H fL
(7.4-10.4)
Abs Immat Gran (auto) 0.2 H 10^3/uL
(0-0.05)
Absolute Neuts (auto) 10.8 H 10^3/uL
(1.4-6.5)
Absolute Lymphs (auto) 0.3 L 10^3/uL
(1.2-3.4)
Immature Gran % 1.6 H %
(0-0.5)
Neutrophils % 92.7 H %
(42.2-75.2)
Lymphocytes % 2.3 L %
(20.5-51.1)
Chloride 108 H mmol/L
(98-107)
Carbon Dioxide 20 L mmol/L
(22-30)
BUN 29 H mg/dl
(9-20)
Creatinine 1.5 H mg/dL
(0.7-1.3)
Glucose 105 H mg/dl
(70-99)
Calcium 7.7 L mg/dl
(8.4-10.2)
Total Protein 4.9 L g/dl
(6.3-8.2)
Albumin 2.9 L g/dl
(3.5-5.0)
POC Glucose 120 H mg/dl
(70-99)
06/11/24 08:30
06/11/24 08:30
Vital Signs
Initial and Last Documented VS:
Initial Vital Signs
BP
98/65
06/11/24 08:07
Last Documented Vital Signs
Temp Pulse Resp BP Pulse Ox
36.8 C 70 21 103/63 95
06/11/24 08:08 06/11/24 08:45 06/11/24 08:45 06/11/24 08:40 06/11/24 08:45
*Critical Care Note
Total Time (30-74mins, 75-104mins- exclusive of procedures): Not Applicable
ED Attending Note
-
Portions of this chart may have been created with voice recognition software.� Occasional wrong word or��sound alike� substitutions may have occurred due to the inherent limitations of voice recognition software.
Discharge Plan
Departure
Patient Disposition: Admit
Date of Disposition: 06/11/24
Time of Disposition: 09:14
Presentation/result/management discussed w/ accepting MD/DO: Hospitalist
Discharge Problem:
Acute focal neurological deficit
Prescriptions:
No Action
atorvastatin 10 mg tablet
10 mg PO DAILY
vitamin B complex Tablet
1 tab PO DAILY
Xarelto 20 mg tablet
20 mg PO HS
Jardiance 10 mg Tablet
10 mg PO DAILY Qty: 30 0RF
sulfamethoxazole-trimethoprim [Bactrim] 400-80 mg Tablet
1 tab PO DAILY
amiodarone [Pacerone] 200 mg tablet
200 mg PO DAILY
therapeutic multivitamin Tablet
1 tab PO DAILY
spironolactone 25 mg Tablet
12.5 mg PO DAILY
Systane (PF) 0.4-0.3 % Dropperette
1 drp BOTH EYES Q6HPRN PRN (Reason: dry eyes)
sacubitril-valsartan [Entresto] 24-26 mg Tablet
1 tab PO BID
Eylea HD 8 mg/0.07 mL Solution
8 mg INTRAVITREAL Q4W
acetaminophen [Tylenol] 325 mg Tablet
650 mg PO DAILYPRN PRN (Reason: fever)
Trelegy Ellipta 100-62.5-25 mcg Blister With Device
1 inh INHALATION R DAILY
prednisone 20 mg tablet
30 mg PO DAILY
carvedilol 6.25 MG tablet
6.25 mg PO BID
pantoprazole 40 mg tablet,delayed release (DR/EC)
40 mg PO DAILY
furosemide 20 mg tablet
20 mg PO DAILY
Spiriva Respimat 2.5 mcg/actuation mist
2 puff inhalation R DAILY
Referrals:
UNKNOWN,NO INTERVIEW [Family Provider] -
Interventions
Interventions:
*Risk Screen - Suicide Last Done: 06/11/24 08:59
*General Assessment Last Done: 06/11/24 08:10
*Neglect/Abuse Screening Last Done: 06/11/24 08:10
ED- Fall Risk Assessment Last Done: 06/11/24 08:10
*ED COVID-19 Vaccine History Last Done: 06/11/24 08:10
ED- Pulmonary Assessment Last Done: 06/11/24 08:10
ED- Neurological Assessment Last Done: 06/11/24 08:34
ED- Cardiac Assessment Last Done: 06/11/24 08:10
ED Swallowing Screen Last Done: 06/11/24 08:29
Discharge Date and Time
Print Language: GREEK
[2024-06-11 07:59] LABS: Glucose - Point of Care 120 mg/dl (70-99)
--- NOTE | 2024-06-11 08:40 | CON.NEURO ---
Consultation
Order
Date of Consultation: 06/11/24
Requesting Provider: Jose F Adler DO
Reason for Consult: Stroke alert
Prehospital notification: 7:46 am
Neurology Consultation Note.
HPI: This is a 74-year-old right-handed man who presented to [facility] on 06/11/2024 with dysarthria, left hemiparesis and sensory deficits. According to patient's spouse the patient was able to communicate around 3:30 AM today. He
was noted to have dysarthria and left-sided weakness numbness upon awakening. No reports of abnormal movements, headaches or similar episodes in the past. Mr. Garcia was reportedly compliant with Xarelto and his last dose was in the evening on
06/10/2024.
ER VS: 110/61, 71, afebrile.
EKG:NSR, QTc Int : 497 ms
PDMP:none
Labs: Glucose�120, WBCs�11.6, hemoglobin�10.8, platelets�109,
CT head, CT head/neck wo contrast�right frontal 1.7/1.3/1.1 cm enhancing mass lesion with minimal focal mass effect. No hemodynamically significant stenosis or acute infarct
PMH: PA-fib anxiety alto, systemic sarcoidosis, chronic hypoxic respiratory insufficiency chronic HFrEF, ICM, VT, COPD,DLP, ambulatory dysfunction, EtOH addiction, history of PE, BMI 33. GIB, OA, right wrist melanoma, NITA
PSH: Bilateral cataract surgery, AICD, bilateral knee arthroscopy, mediastinoscopy
SH: , former smoker,
FH:HTN
All:NKDA
ROS: Positive for dysarthria, left sided weakness, numbness.
General: Well developed. In no acute distress.
Cardio: Regular rate. Extremities are without cyanosis or edema.
Neuro:
Mental Status: somnolent, mild right hemineglect. Impaired attention. Follows simple requests. Slow speech, no aphasia.
Cranial Nerves: Pupils are equally round, surgical. Extraocular movements intact. Left hemianopsia. Left facial weakness. Moderate dysarthria.
Motor: Drifts left arm to the bed in less than 10 seconds, drifts left leg to the bed in less than 10 seconds. Right arm and leg�no drift.
Sensory: Reduced light touch in the left arm and leg; unable to check for extintion due to severity of sensory deficits.
Coordination: No dysmetria on the right.
Gait: deferred
Assessment and Plan:
I. Acute right MCA syndrome. Differential diagnosis includes vascular versus postictal. Not a candidate for IV TNK due to systemic anticoagulation.
II. Right frontal meningioma with mild mass effect
III. Encephalopathy.
-Continue Telemetry monitoring.
-Dysphagia evaluation
-Fall and aspiration precautions.
-IV fluids
-Brain MRI with jose
-Urgent EEG
-TTE with bubble studies
-Stop Xarelto, start aspirin 81 mg once a day with close platelet monitoring.
-Lipitor 40 mg QHS.
-Please check HbA1C, LDL.
-PT.
-DVT prophylaxis.
I personally reviewed all radiology and labs along with past medical records pertinent to current medical problems. Total time spent in patient care is 60 minutes.
Thank you for allowing us to participate in the care of this patient. We will continue to follow. Please do not hesitate to contact us with any questions or concerns.
Subjective/Objective
Subjective Data
Date of Service: June 11, 2024
Objective Data
Vital Signs
Temp Pulse Resp BP Pulse Ox
36.8 C 71 19 110/61 91
06/11/24 08:08 06/11/24 08:30 06/11/24 08:30 06/11/24 08:20 06/11/24 08:30
Patient Allergies
No Known Allergies Allergy (Verified 01/20/24 10:07)
Medications
-
Home Medications
�Medication �Instructions �Recorded
carvedilol 6.25 mg tablet 6.25 mg PO BID ##60 01/14/15
atorvastatin 10 mg tablet 10 mg PO DAILY High Cholesterol 04/24/23
rivaroxaban 20 mg tablet (Xarelto) 20 mg PO HS Blood Clot 04/24/23
Prevention/Tx
vitamin B complex 1 tab PO DAILY Supplement 04/24/23
empagliflozin 10 mg tablet 10 mg PO DAILY HF #30 tabs 04/27/23
(Jardiance)
aflibercept 8 mg/0.07 mL 8 mg intravitreal Q4W Eye Condition 01/20/24
intravitreal solution for
injection (Eylea HD)
amiodarone 200 mg tablet (Pacerone) 200 mg PO DAILY VTach 01/20/24
peg 400-propylene glycol (PF) 0.4 1 drp BOTH EYES Q6HPRN PRN dry eyes 01/20/24
%-0.3 % eye drops in a dropperette
(Systane (PF))
sacubitril 24 mg-valsartan 26 mg 1 tab PO BID Heart Failure 01/20/24
tablet (Entresto)
spironolactone 25 mg tablet 12.5 mg PO DAILY Blood Pressure 01/20/24
sulfamethoxazole 400 1 tab PO DAILY Infection 01/20/24
mg-trimethoprim 80 mg tablet
(Bactrim)
therapeutic multivitamin 1 tab PO DAILY Supplement 01/20/24
furosemide 20 mg tablet 20 mg PO DAILY #30 tabs 02/04/24
pantoprazole 40 mg tablet,delayed 40 mg PO DAILY #30 tabs 02/04/24
release
tiotropium bromide 2.5 2 puff inhalation R DAILY #1 g 02/04/24
mcg/actuation mist for inhalation
(Spiriva Respimat)
acetaminophen 325 mg tablet 650 mg PO DAILYPRN PRN fever 06/11/24
(Tylenol)
fluticasone fur. 100 mcg-umeclid 1 inh inhalation R DAILY 06/11/24
62.5 mcg-vilant 25 mcg
inhalat.powder (Trelegy Ellipta)
prednisone 20 mg tablet 30 mg PO DAILY 06/11/24
[2024-06-11] MEDS: NSS 1000 IV (08:45)
[2024-06-11 08:51] LABS: % Basophils 0.1 % (0-2); % Immature Granulocytes 1.6 % (0-0.5); % Lymphocytes 2.3 % (20.5-51.1); % Monocytes 3.3 % (1.7-9.3); % Neutrophils 92.7 % (42.2-75.2); Absolute Immature Granulocytes 0.2 10^3/uL (0-0.05); Absolute Lymphocytes 0.3 10^3/uL (1.2-3.4); Absolute Monocytes 0.4 10^3/uL (0.1-0.6); Absolute Neutrophils 10.8 10^3/uL (1.4-6.5); Hematocrit 33.2 % (39.0-52.0); Hemoglobin 10.8 g/dL (13.0-18.0); Mean Corp Hgb Conc. 32.5 g/dL (33.0-37.0); Mean Corpuscular Hgb 30.9 pg (27.0-31.0); Mean Corpuscular Volume 94.9 fL (80.0-94.0); Mean Platelet Volume 11.4 fL (7.4-10.4); Nucleated Red Blood Cells % 0 % (-); Platelet Count 109 10^3/uL (130-400); Red Cell Dist. Width 15.7 % (11.5-14.5); White Blood Cell Count 11.6 10^3/uL (4.8-10.8)
[2024-06-11 09:00] LABS: ALT (SGPT) 26 U/L (0-50); AST (SGOT) 19 U/L (17-59); Albumin 2.9 g/dl (3.5-5.0); Alkaline Phosphatase 60 U/L (38-126); Blood Urea Nitrogen 29 mg/dl (9-20); Calcium 7.7 mg/dl (8.4-10.2); Carbon Dioxide 20 mmol/L (22-30); Chloride 108 mmol/L (98-107); Estimated Creatinine Clearance 51 ml/min; Glucose 105 mg/dl (70-99); Potassium 3.5 mmol/L (3.5-5.1); Sodium 137 mmol/L (135-145); Total Bilirubin 0.7 mg/dl (0.2-1.3); Total Protein 4.9 g/dl (6.3-8.2); eGFR 48.85
--- NOTE | 2024-06-11 09:57 | HPS.HSE ---
Addendum entered and electronically signed by Polo Zazueta MD 06/11/24 16:35:
Will add stress doses of IV steroids since patient on oral steroids as OP.Will add insulin sliding scale for now.
Original Note:
Family Physician
-
Family Physician: NO INTERVIEW UNKNOWN
Chief Complaint
-
left side weakness
History of Present Illness
Patient is 74 years old male with past medical history of A-fib, sarcoidosis, CHF, COPD, VTE in the past, NITA, came into the hospital with sudden onset of left hemiparesis. LKN was last night around 10 PM when he went to bed and this morning woke
up around 3:30 AM with some dysarthria, generalized malaise, and left-sided weakness and numbness. He typically wakes up around 7 AM. He denied any chest pain or shortness of breath. Denies fevers or chills recently. Denies nausea vomiting or
diarrhea. Denies abdominal pain. In the ER, CT scan with no acute abnormality and he was not a candidate for TKN due to being on anticoagulant and also out of the time window. Neurology consulted in the ER. He was referred to hospitalist service
for further evaluation.
Medical History
Past Medical History
Past Medical History: Reports CAD (Nonocclusive coronary artery disease by catheterization on 01/12/2015. ), CHF, COPD, HTN, Hypercholesterolemia and Other
Additional Past Medical History:
COPD
former smoker
sarcoidosis
DVT/PE-patient on Xarelto
daily alcohol use
Paroxysmal A-fib
HTN
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
CHF/ nonischemic cardiomyopathy, EF 35-40% April 2023
nonocclusive CAD December 2014 cardiac cath
Mitral regurgitation, moderate to severe by echo in 12/2014.
GERD
HLD
basal cell skin CA
OA right knee
Past Surgical History: Reports Orthopedic (Right knee arthroscopy, partial medial meniscectomy, medial femoral chondroplasty.) and Other (Mediastinoscopy)
Social History
Tobacco: Former Smoker (quit 2014)
Alcohol: Daily (Patient reports he drinks 1 shot of whiskey 4 times a week)
Drug: None
Personal:
Living: With Family ()
Employment: Retired
Family History
Family History: Other (father-pacemaker/arryhthmia )
Allergies / Home Medications
Allergies reflects when Allergies were last updated in [employer].
Home Medications with original date entered in [employer]
Allergy/Medication List:
Allergies
Allergy/AdvReac Type Severity Reaction Status Date / Time
No Known Allergies Allergy Verified 01/20/24 10:07
Home Medications
atorvastatin 10 mg tablet 10 mg PO DAILY High Cholesterol 04/24/23
rivaroxaban 20 mg tablet (Xarelto) 20 mg PO HS Blood Clot Prevention/Tx 04/24/23
vitamin B complex 1 tab PO DAILY Supplement 04/24/23
empagliflozin 10 mg tablet (Jardiance) 10 mg PO DAILY HF #30 tabs 04/27/23
aflibercept 8 mg/0.07 mL intravitreal solution for injection (Eylea HD) 8 mg intravitreal Q4W Eye Condition 01/20/24
amiodarone 200 mg tablet (Pacerone) 200 mg PO DAILY VTach 01/20/24
peg 400-propylene glycol (PF) 0.4 %-0.3 % eye drops in a dropperette (Systane (PF)) 1 drp BOTH EYES Q6HPRN PRN dry eyes 01/20/24
sacubitril 24 mg-valsartan 26 mg tablet (Entresto) 1 tab PO BID Heart Failure 01/20/24
spironolactone 25 mg tablet 12.5 mg PO DAILY Blood Pressure 01/20/24
sulfamethoxazole 400 mg-trimethoprim 80 mg tablet (Bactrim) 1 tab PO DAILY Infection 01/20/24
therapeutic multivitamin 1 tab PO DAILY Supplement 01/20/24
acetaminophen 325 mg tablet (Tylenol) 650 mg PO DAILYPRN PRN fever 06/11/24
carvedilol 6.25 mg tablet 6.25 mg PO BID Blood Pressure 06/11/24
fluticasone fur. 100 mcg-umeclid 62.5 mcg-vilant 25 mcg inhalat.powder (Trelegy Ellipta) 1 inh inhalation R DAILY Lung/Breathing Issues 06/11/24
furosemide 20 mg tablet 20 mg PO DAILY Fluid Retention/Swelling 06/11/24
pantoprazole 40 mg tablet,delayed release 40 mg PO DAILY Gastrointestinal Issue 06/11/24
prednisone 20 mg tablet 30 mg PO DAILY ANTI-INFLAMMATION 06/11/24
tiotropium bromide 2.5 mcg/actuation mist for inhalation (Spiriva Respimat) 2 puff inhalation R DAILY Lung/Breathing Issues 06/11/24
Review of Systems
-
A 12 point ROS was completed and negative except as noted: Yes
Physical Exam
Vital Signs
Vital Signs
Temp Pulse Resp BP Pulse Ox
98.2 F 70 21 103/63 95
06/11/24 08:08 06/11/24 08:45 06/11/24 08:45 06/11/24 08:40 06/11/24 08:45
Physical exam:
General: Acutely ill
HEENT: Normocephalic, Atraumatic and Moist Mucous Membranes
Respiratory: Clear to Auscultation; Negative Wheezes, Rales or Rhonchi
Cardiac: Regular Rhythm and S1/S2
GI: Soft, Nontender and Nondistended
Musculoskeletal: No Clubbing, No Cyanosis and No Edema
Neuro: Awake, Alert and Oriented, left hemiparesis, decreased sensory in the left.
Psych: Calm
Physical Exam
General: Other
Laboratory Results
-
06/11/24 08:30
06/11/24 08:30
Laboratory Results
Total Bilirubin 0.7 mg/dl (0.2-1.3) 06/11/24 08:30
AST 19 U/L (17-59) 06/11/24 08:30
ALT 26 U/L (0-50) 06/11/24 08:30
Alkaline Phosphatase 60 U/L (38-126) 06/11/24 08:30
Data Reviewed
-
CT Scan: Image Personally Visualized and interpreted
Lab Data: Labs Reviewed by me
Impression/Plan
-
IMPRESSION:
Patient 74 years old male with multiple comorbidities presented to the hospital with acute onset of left-sided weakness consistent with acute stroke. Patient at high risk morbidity mortality therefore he will need to be monitored and treated in the
hospital accordingly.
PLAN:
Acute CVA:
Likely a right middle cerebral artery ischemic stroke
Aspirin per rectum
Statins when able to take oral
Neurology consult-discussed with neurology today
Plan for EEG
Plan for echocardiogram
Plan for MRI of the brain
Plan for CTA of head and neck
PT OT and speech pathology eval
IV fluids while n.p.o. and to support hemodynamics
Pressors if needed if hypotensive while on IV fluid
Prognosis guarded
EMEKA:
IVF
bladder scan per protocol
Sarcoidosis:
Will restart steroids when able to take oral
Chronic HFrEF:
Will resume antiheart failure medications when able to take oral
Monitor volume status
Obtain chest x-ray as baseline although on exam appears euvolemic
Paroxysmal atrial fibrillation:
Hold anticoagulation for now
IV metoprolol as needed if able to tolerate for sustained tachycardia
Continue cardiac monitoring
COPD:
Monitor respiratory status closely
obtain cxr
History ventricular tachycardia:
[employer] ICD placement since 2022
Alcohol use disorder:
- stays that he is not drinking anymore as much as he was before.
-MSA protocol.
-Monitor closely
Hypertension
Hyperlipidemia
History of PE
Nonobstructive CAD
History of syncope due to VT status post shock in the past
Former tobacco use
DVT prophylaxis:
Heparin SQ
CODE STATUS:
Full code
Time spent 75 minutes
--- NOTE | 2024-06-11 10:59 | EEGC.RPT ---
Continuous EEG Report
Recording
Start Date of Data Reviewed: 06/11/24
Done with Video Recording: Yes
Electrocardiogram: Unremarkable
Report
TECHNICAL REMARKS:��This is a technically satisfactory eighteen channel record employing 21 disc electrodes applied according to a measured international 10-20 electrode placement system.��There were no significant technical difficulties.��The study
was done on a [employer] System.
MEDICATIONS:� no AED
STUDY DURATION: 28 min, 37 sec
CLINICAL INFORMATION:��This is a 74-year-old man with right frontal mass and left-sided weakness/dysarthria.
REPORT: �At the onset of the EEG, the patient is awake. The background activity on the left consists of 10-11 Hz, persistent, posteriorly dominant, moderate in amplitude, asymmetric, and rhythmic activity. Continuous right hemispheric 5-6 slowing is
present.� Stepwise intermittent photic stimulation (1-31 Hz) did not induce any additional abnormalities. Hyperventilation was not performed. Drowsiness is characterized by low amplitude mixed frequency activity, decreased eye blinking, and muscle
artifact. N2 sleep was reached.
IMPRESSION: �This is an abnormal awake and asleep EEG due to continuos right hemispheric slowing indicative of structural lesion in the above region. No epileptiform activity was seen.�
[2024-06-11] MEDS: ASPIRIN 300 MG RECTAL (11:25)
--- NOTE | 2024-06-11 13:40 | CARDSERVLU ---
Echocardiogram with Lumason completed after protocol screening completed. Allergies verified.
Patent IV site: R hand
IV site flushed with 0.9% NaCl pre and post administration.
Diluted bolus method utilized to enhance visualization of ventricular whitten.
Total volume given: _2.5___ mL
Patient tolerated all procedures well without complications.
--- NOTE | 2024-06-11 14:32 | CM ---
Case management consult place due to patient having stroke/TIA. PT is consulted. Will await their evaluations and recommendations.
[2024-06-11 15:36] LABS: HDL Cholesterol 33 mg/dl; LDL Cholesterol, Calculated 84 mg/dl; Total Cholesterol 139 mg/dl (50-199); Triglyceride 114 mg/dl (10-149); Very Low Density Lipoprotein 22 mg/dl (0-30)
[2024-06-11] MEDS: THIAMINE INJECTION 200 MG IV (16:55)
[2024-06-11] MEDS: SOLU-CORTEF 100 MG IV (17:00)
[2024-06-11] MEDS: LR 1000 IV (17:04)
[2024-06-11] MEDS: FOLVITE 50.2 MG IV (17:12)
[2024-06-11] MEDS: FOLVITE PO (18:12)
[2024-06-11] MEDS: LIPITOR PO (18:13)
--- NOTE | 2024-06-11 19:40 | PTCARENOTE ---
verbal Report received from ED RN Rosemary. Awaiting Pt arrival to unit.
--- NOTE | 2024-06-11 21:00 | PTCARENOTE ---
Pt received from ED RN. Pt connected to IMU monitor. Pt VSS. Pt awake and arousable. Initial NIH and neuro check completed upon admission to floor per order/ protocol. this RN was told in report from ED RN, Rosemary, pt was scoring a 14 NIH. Per MD
from this AM, Pt was scored a 9. This RN scored Pt a 18 NIH, upon admission to the floor. JUICE WEIGHER notified, this RN is continuing to assess per protocol.
[2024-06-11] MEDS: HEPARIN 5000 UNITS SC (22:34)
[2024-06-12] VITALS (17 sets, daily range): BP systolic 126–149; BP diastolic 66–95; PULSE 72–77; O2SAT 92–93; BMI 32.4
[2024-06-12 00:07] LABS: Glucose - Point of Care 110 mg/dl (70-99)
[2024-06-12] MEDS: THIAMINE INJECTION 200 MG IV ×4 (00:12→23:38)
[2024-06-12] MEDS: SOLU-CORTEF 50 MG IV ×3 (00:13→19:47)
[2024-06-12] MEDS: LR 1000 IV ×3 (03:33→23:33)
[2024-06-12 04:51] LABS: % Immature Granulocytes 1.8 % (0-0.5); % Monocytes 2.9 % (1.7-9.3); % Neutrophils 91.3 % (42.2-75.2); Absolute Immature Granulocytes 0.2 10^3/uL (0-0.05); Absolute Lymphocytes 0.4 10^3/uL (1.2-3.4); Absolute Monocytes 0.3 10^3/uL (0.1-0.6); Absolute Neutrophils 9.6 10^3/uL (1.4-6.5); Hematocrit 35.8 % (39.0-52.0); Mean Corp Hgb Conc. 30.7 g/dL (33.0-37.0); Mean Corpuscular Hgb 30.1 pg (27.0-31.0); Mean Corpuscular Volume 98.1 fL (80.0-94.0); Mean Platelet Volume 11.3 fL (7.4-10.4); Nucleated Red Blood Cells % 0 % (-); Platelet Count 129 10^3/uL (130-400); Red Blood Cell Count 3.65 10^6/uL (4.70-6.10); Red Cell Dist. Width 15.7 % (11.5-14.5); White Blood Cell Count 10.5 10^3/uL (4.8-10.8)
[2024-06-12 05:10] LABS: Blood Urea Nitrogen 20 mg/dl (9-20); Carbon Dioxide 24 mmol/L (22-30); Chloride 108 mmol/L (98-107); Estimated Creatinine Clearance 68 ml/min; Glucose 98 mg/dl (70-99); HDL Cholesterol 34 mg/dl; LDL Cholesterol, Calculated 101 mg/dl; Magnesium 2.3 mg/dl (1.6-2.3); Potassium 4.8 mmol/L (3.5-5.1); Sodium 139 mmol/L (135-145); Total Cholesterol 157 mg/dl (50-199); Triglyceride 112 mg/dl (10-149); Very Low Density Lipoprotein 22 mg/dl (0-30); eGFR > 60.00
[2024-06-12 05:34] LABS: Glucose - Point of Care 91 mg/dl (70-99)
--- NOTE | 2024-06-12 07:38 | W.PN.NEURO.1 ---
Today's Communication / Plan
-
.
Subjective/Objective
Subjective Data
Date of Service: June 12, 2024
Neurology Follow Up Note.
Mr. Mariano endorses a mild right intraorbital headache. No change in vision, strength or dysarthria.
The patient has been normotensive, afebrile.
Telemetry�sinus rhythm
TTE-no evidence of intramural thrombus or PFO, ASA.
Routine EEG-continuos right hemispheric slowing, no evidence of epileptiform abnormalities.
Brain MRI�acute posterior division of the R MCA infarct with no microhemorrhages or shift.
LDL�101, hemoglobin A1c�5.8, Pl 129, GFR>60.
PMH: PA-fib anxiety alto, systemic sarcoidosis, chronic hypoxic respiratory insufficiency chronic HFrEF, ICM, VT, COPD,DLP, ambulatory dysfunction, EtOH addiction, history of PE, BMI 33. GIB, OA, right wrist melanoma, NITA
PSH: Bilateral cataract surgery, AICD, bilateral knee arthroscopy, mediastinoscopy
SH: , former smoker,
FH:HTN
All:NKDA
ROS: Positive for dysarthria, left sided weakness, numbness, headache.
General: Well developed. In no acute distress.
Cardio: Regular rate. Extremities are without cyanosis or edema.
Neuro:
Mental Status: Awake, oriented to person, place. Follows simple requests consistently. Increased processing time. Nonfluent. Impaired attention.
Cranial Nerves: Pupils are equally round, surgical. Does not close midline on the left lateral gaze. Left hemianopsia. Left facial weakness. Moderate dysarthria.
Motor: Drifts left arm to the bed in less than 10 seconds, triple flexion in the left leg. Right arm and leg�no drift.
Sensory: Reduced light touch in the left arm and leg
Coordination: No dysmetria on the right.
Gait: deferred
Assessment and Plan:
I. Acute right MCA stroke. Likely etiology�embolic.
II. Right frontal meningioma.
III. Encephalopathy.
IV. PA AFib. Based on OPTIMAS trial published in the Lancet on April 27, 2024, the rates of symptomatic ICH were similarly low for both early (<4 days from stroke onset) and late (>5 days) DOAC administration, and the composite outcome of stroke
or hemorrhage�with early initiation was marginally lower�at 30 but not 90 days. It is remains unclear whether earlier DOAC treatment reduces the risk of recurrent ischemic stroke.
V. Direct-acting oral anticoagulant treatment failure. For patients with stroke on DOACs with good compliance a noncardioembolic stroke mechanism (eg, malignancy) is often the cause, although cardioembolism may account for the majority.
If a thrombus is present despite appropriate dosing and compliance, it is reasonable to change to another DOAC, but optimal treatment is uncertain, and no consensus exists.
-Continue Telemetry monitoring.
-Dysphagia evaluation
-Fall and aspiration precautions.
-Continue aspirin 81 mg once a day p.o. or 300 mg MD
-Lipitor 40 mg QHS.
-Continue thiamine
-Repeat CT head wo contrast in 7 days before resuming DOAC given the size of the stroke.
-Will contact patient's pharmacy to confirm compliance.
-PT.
-Continue heparin subQ for DVT prophylaxis.
-OP Neurosurgery consult
-The case was discussed with patient's spouse.
I personally reviewed all radiology and labs along with past medical records pertinent to current medical problems. Total time spent in patient care is 40 minutes.
Thank you for allowing us to participate in the care of this patient. We will continue to follow. Please do not hesitate to contact us with any questions or concerns.
Objective Data
Vital Signs
Temp Pulse Resp BP Pulse Ox
37.1 C 61 19 129/79 93
06/12/24 03:00 06/12/24 05:00 06/12/24 05:00 06/12/24 04:00 06/12/24 05:00
Lab Results
06/12/24 04:28
06/12/24 04:28
Sodium 139 mmol/L (135-145) 06/12/24 04:28
Potassium 4.8 mmol/L (3.5-5.1) D 06/12/24 04:28
BUN 20 mg/dl (9-20) 06/12/24 04:28
Glucose 98 mg/dl (70-99) 06/12/24 04:28
Calcium 8.0 mg/dl (8.4-10.2) L 06/12/24 04:28
LDL Cholesterol, Calc 101 mg/dl 06/12/24 04:28
Patient Allergies
No Known Allergies Allergy (Verified 06/11/24 15:08)
Vital Signs and Labs
-
Vital Signs and Labs:
Vital Signs
Temp Pulse Resp BP Pulse Ox
37.5 C 76 19 134/72 94
06/12/24 08:42 06/12/24 08:30 06/12/24 08:30 06/12/24 08:00 06/12/24 08:30
Lab Results
06/12/24 04:28
06/12/24 04:28
Sodium 139 mmol/L (135-145) 06/12/24 04:28
Potassium 4.8 mmol/L (3.5-5.1) D 06/12/24 04:28
BUN 20 mg/dl (9-20) 06/12/24 04:28
Glucose 98 mg/dl (70-99) 06/12/24 04:28
Calcium 8.0 mg/dl (8.4-10.2) L 06/12/24 04:28
LDL Cholesterol, Calc 101 mg/dl 06/12/24 04:28
Medications
-
Medications:
Generic Name Dose Route Start Last Admin
Trade Name Freq PRN Reason Stop Dose Admin
Acetaminophen 650 mg 06/11/24 14:20
Acetaminophen 650 Mg Rectal Suppository RECTAL 07/09/24 14:19
Q4HPRN PRN
MOONEY, mild pain, or temp >100.4F
Acetaminophen 650 mg 06/11/24 14:20
Acetaminophen 325 Mg Tablet PO 07/09/24 14:19
Q4HPRN PRN
MOONEY, mild pain, or temp >100.4F
Albuterol/Ipratropium 3 ml 06/11/24 16:33
Ipratropium 0.5/Albuterol 3 Mg (3 Ml Ampul) INH
R Q4HPRN PRN
sob or wheezing
Protocol
Aspirin 300 mg 06/11/24 12:00 06/12/24 08:28
Aspirin 300 Mg Rectal Suppository RECTAL 07/09/24 11:59 300 mg
DAILY ROMAN Administration
Atorvastatin Calcium 40 mg 06/11/24 18:00 06/11/24 18:13
Atorvastatin (Lipitor) 40 Mg Tablet PO 07/09/24 17:59 Not Given
QPM ROMAN
Dextrose 12.5 grams 06/11/24 16:32
Dextrose 50% (0.5 Grams/Ml) 50 Ml Syringe IV 07/09/24 16:31
[id number] PRN
hypoglycemia
Protocol
Folic Acid 1 mg 06/11/24 16:00 06/12/24 08:12
Folic Acid 1 Mg Tablet PO 07/09/24 15:59 Not Given
DAILY ROMAN
Glucagon 1 mg 06/11/24 16:32
Glucagon 1 Mg Vial IM 07/09/24 16:31
PRN PRN
hypoglycemia
Protocol
Heparin Sodium 5,000 units 06/11/24 20:00 06/12/24 08:27
Heparin 5,000 Units/Ml 1 Ml Vial SC 07/09/24 19:59 5,000 units
Q12 ROMAN Administration
Hydrocortisone Sodium Succinate 50 mg 06/12/24 00:00 06/12/24 08:27
Hydrocortisone Sodium Succinate 100 Mg/2 Ml Vial IV 07/10/24 00:00 50 mg
Q8 ROMAN Administration
Lactated Ringer's 1,000 mls @ 100 mls/hr 06/11/24 16:00 06/12/24 03:33
Lr IV 1,000 mls
.Q10H ROMAN Administration
Folic Acid 1 mg/ Sodium 50.2 mls @ 200.8 mls/hr 06/11/24 15:30 06/11/24 17:12
Chloride IV 07/09/24 15:29 50.2 mls
DAILYPRN PRN Administration
if NPO
Insulin Aspart 0 units 06/12/24 12:00
Insulin Aspart Low Resistance 300 Units/3 Ml Pen.Injctr SC 07/10/24 11:59
Q6 ROMAN
Protocol
Lorazepam 1 mg 06/11/24 15:30
Lorazepam 1 Mg Tablet PO 07/09/24 15:29
Q2HPRN PRN
MSAS 5-7
Lorazepam 1 mg 06/11/24 15:30
Lorazepam 2 Mg/Ml Vial IV 07/09/24 15:29
Q1HPRN PRN
MSAS 8-11
Lorazepam 2 mg 06/11/24 15:30
Lorazepam 2 Mg/Ml Vial IV 07/09/24 15:29
Q1HPRN PRN
MSAS > 11
Metoprolol Tartrate 5 mg 06/11/24 15:33
Metoprolol 5 Mg/5 Ml Vial IV 07/09/24 15:32
Q6HPRN PRN
HR sustained >120
Sodium Chloride 0 ml 06/11/24 15:30
Sodium Chloride 0.9% (Preservative Free) 10 Ml Vial IV 07/09/24 15:29
PRN PRN
To dilute IV Ativan
Protocol
Sodium Chloride 0 flush 06/11/24 16:00
Sodium Chloride 0.9% (Flush) Syringe IV 07/09/24 15:59
PER PROTOCOL ROMAN
Thiamine HCl 200 mg 06/11/24 16:00 06/12/24 08:28
Thiamine (100 Mg/Ml) 2 Ml Vial IV 06/14/24 08:01 200 mg
Q8 ROMAN Administration
Thiamine HCl 100 mg 06/14/24 20:00
Thiamine 100 Mg Tablet PO 07/12/24 19:59
BID ROMAN
Home Medications
-
Home Medications
atorvastatin 10 mg tablet 10 mg PO DAILY High Cholesterol 04/24/23
rivaroxaban 20 mg tablet (Xarelto) 20 mg PO HS Blood Clot Prevention/Tx 04/24/23
vitamin B complex 1 tab PO DAILY Supplement 04/24/23
empagliflozin 10 mg tablet (Jardiance) 10 mg PO DAILY HF #30 tabs 04/27/23
aflibercept 8 mg/0.07 mL intravitreal solution for injection (Eylea HD) 8 mg intravitreal Q4W Eye Condition 01/20/24
amiodarone 200 mg tablet (Pacerone) 200 mg PO DAILY VTach 01/20/24
peg 400-propylene glycol (PF) 0.4 %-0.3 % eye drops in a dropperette (Systane (PF)) 1 drp BOTH EYES Q6HPRN PRN dry eyes 01/20/24
sacubitril 24 mg-valsartan 26 mg tablet (Entresto) 1 tab PO BID Heart Failure 01/20/24
spironolactone 25 mg tablet 12.5 mg PO DAILY Blood Pressure 01/20/24
sulfamethoxazole 400 mg-trimethoprim 80 mg tablet (Bactrim) 1 tab PO DAILY Infection 01/20/24
therapeutic multivitamin 1 tab PO DAILY Supplement 01/20/24
acetaminophen 325 mg tablet (Tylenol) 650 mg PO DAILYPRN PRN fever 06/11/24
carvedilol 6.25 mg tablet 6.25 mg PO BID Blood Pressure 06/11/24
fluticasone fur. 100 mcg-umeclid 62.5 mcg-vilant 25 mcg inhalat.powder (Trelegy Ellipta) 1 inh inhalation R DAILY Lung/Breathing Issues 06/11/24
furosemide 20 mg tablet 20 mg PO DAILY Fluid Retention/Swelling 06/11/24
pantoprazole 40 mg tablet,delayed release 40 mg PO DAILY Gastrointestinal Issue 06/11/24
prednisone 20 mg tablet 30 mg PO DAILY ANTI-INFLAMMATION 06/11/24
tiotropium bromide 2.5 mcg/actuation mist for inhalation (Spiriva Respimat) 2 puff inhalation R DAILY Lung/Breathing Issues 06/11/24
[2024-06-12] MEDS: FOLVITE PO (08:12)
[2024-06-12 08:27] LABS: Glycohemoglobin (HgbA1c) 5.8 % (4.0-5.6)
[2024-06-12] MEDS: HEPARIN 5000 UNITS SC ×2 (08:27→19:48)
[2024-06-12] MEDS: ASPIRIN 300 MG RECTAL (08:28)
--- NOTE | 2024-06-12 09:16 | W.PN.HOSP.TC ---
Addendum entered and electronically signed by Polo Zazueta MD 06/12/24 16:01:
Total time spent on today's encounter was 52 minutes which included time spent in counseling the patient/family regarding diagnosis and treatment plan as listed above, goals of care, and symptom management. Case was discussed with nursing staff,
specialists, and care coordinators/case management. All labs and imaging personally reviewed by me. Remainder the time spent in detailed review of previous records, lab data, imaging, and other medical provider documentation.
Original Note:
Today's Communication/Plan
-
Continue stroke care.
Assessment / Plan
Assessment / Plan
Physical exam:
General: Acutely ill
HEENT: Normocephalic, Atraumatic and Moist Mucous Membranes
Respiratory: Clear to Auscultation; Negative Wheezes, Rales or Rhonchi
Cardiac: Regular Rhythm and S1/S2
GI: Soft, Nontender and Nondistended
Musculoskeletal: No Clubbing, No Cyanosis and No Edema
Neuro: Awake, Alert and Disoriented, left hemiparesis, decreased sensory in the left.
Psych: Calm
A/P:
Acute CVA:
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
Aspirin per rectum
Resume anticoagulation once cleared by neurology
Statins when able to take oral
Neurology consult appreciated
No seizures on EEG
No thrombus on echocardiogram
Confirm right stroke on MRI of the brain
No LVO on CTA of head and neck
LDL 101
Hemoglobin A1c 5.8
PT OT and speech pathology eval
IV fluids while n.p.o. but decrease rate
Acute metabolic encephalopathy due to stroke:
Monitor mental status and behavior
Continue thiamine
Dysphagia due to stroke:
Speech therapy recommended to keep strict n.p.o.
Discussed with family about possibly starting NG tube for feedings and they want to hold off
Meningioma, right frontal:
Neurosurgery outpatient eval
EMEKA:
IVF
Urinary catheter
Sarcoidosis:
On IV steroids--> taper doses
Insulin sliding scale while on steroid
Chronic HFrEF:
Will resume antiheart failure medications when able to take oral
Monitor volume status
Obtain chest x-ray as baseline although on exam appears euvolemic and no acute pathology but some residual chronic changes
Paroxysmal atrial fibrillation:
Hold anticoagulation for now and resume when cleared by neurology
IV metoprolol as needed if able to tolerate for sustained tachycardia
Continue cardiac monitoring
COPD:
Monitor respiratory status closely
Bronchodilators as needed
obtained cxr and no acute pathology but some residual chronic changes
History ventricular tachycardia:
[employer] ICD placement since 2022
Alcohol use disorder:
- stays that he is not drinking anymore as much as he was before.
-MSA protocol.
-Monitor closely
Thrombocytopenia:
Monitor trend
Hypertension
Hyperlipidemia
History of PE
Nonobstructive CAD
History of syncope due to VT status post shock in the past
Former tobacco use
DVT prophylaxis:
Heparin SQ
CODE STATUS:
Full code
Anticipated Discharge: > 48 hours
Subjective/Interval History
-
Date of Service: June 12, 2024
Patient remains encephalopathic although slightly improved and dense left hemiparetic.
Objective Data
-
Labs:
Laboratory Results
06/12/24
04:28
WBC 10.5
Hgb 11.0 L
Hct 35.8 L
Plt Count 129 L
Sodium 139
Potassium 4.8 D
Chloride 108 H
Carbon Dioxide 24
BUN 20
Creatinine 1.1
Glucose 98
Calcium 8.0 L
Vital Signs:
Vital Signs
Temp Pulse Resp BP Pulse Ox
99.5 F 76 19 134/72 94
06/12/24 08:42 06/12/24 08:30 06/12/24 08:30 06/12/24 08:00 06/12/24 08:30
--- NOTE | 2024-06-12 09:55 | PTOTSP ---
Speech Therapy Evaluation:
Pt exhibits clinical signs of oropharyngeal dysphagia, likely chronic in nature related to history of COPD and GERD, acutely compounded by R MCA infarct. Pt remains at a high risk of aspiration and related complications due to lethargy and R MCA
role in swallowing including motor control, sensory input, and coordination. Pt accepted trials of ice chips with reduced coordination of oral phase and no present swallow initiation upon palpation, requiring COUNTY HISTORIAN to orally suction residual out of
pt's mouth. PO trials d/c to to safety concerns.
Recommend:
1. Strict NPO
2. Medications non-oral
3. Oral care 3x/daily
4. COUNTY HISTORIAN to closely follow
--- NOTE | 2024-06-12 10:39 | WOUNDNOTE ---
RIGHT GREAT TOE(Jamaal IRWIN, 1950, U ROOM [id number]
--- NOTE | 2024-06-12 10:41 | WOUNDNOTE ---
LEFT GLUTE(Jamaal IRWIN 1950, U ROOM [id number]
--- NOTE | 2024-06-12 10:45 | WOUNDNOTE ---
MELIA RN note: Patient admitted with acute focal neurological deficit.
See H&P for complete history.
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 Goes to [facility]- R toe.
Wound Location and type/assessment: Patient admitted with: R great toe full thickness ulcer, suspected friction from shoe. Base dry pink mixed with suarez slough, scant drainage. Reviewed reports from [facility]. + palpable pedal pulses, no edema. Heels
intact, sacrum non blanchable pink. L buttock with healing stage 2 PI. Patient assisted with turning to L side, unable to lift L leg or arm, involuntary flexion of L foot noted.
Appetite: TBD
Pressure redistribution devices in place: On air mattress, recommend keep on air mattress.
Plan:honey gel dressing to R toe, protective foams applied to heels. Calazime applied to sacrum and buttocks. Patient incontinent frequently of stool, skin care given. Condom catheter in use. Pillow placed under calves.
Will confirm orders with hospitalist and updated nurse.
Updated care plan and will follow as needed.
Note to case management of equipment requested for discharge: TBD
Recommend follow up at wound care center upon discharge.
[2024-06-12 12:12] LABS: Glucose - Point of Care 97 mg/dl (70-99)
--- NOTE | 2024-06-12 12:38 | CM ---
Addendum entered by Shraddha Robledo 06/12/24 14:30:
PT evaluated patient; Post Acute recommendation is Acute vs. Skilled Rehab
CM will continue to monitor and support disposition coordination
Original Note:
Met with patient's at the bedside; patient asleep; initial assessment completed
Pharmacy verified: [facility] @ [address] [place] [address]
Family Physician verified: Dr. Doyle Avila, [facility]
CM Consult for substance abuse counseling offered; declined on behalf of patient
reported that she and her live in a 2 story home; 0 steps to enter; 3 steps up to 1st floor; full ADA approved bathroom on the 1st floor (walk-in shower, grab bar, shower chair); patient used the 1st floor Bathroom to shower; his
bedroom is on the 2nd floor
PLOF: reported that patient was independent with his personal care; ambulated with a cane or Rollator; does not drive; was going to outpatient PT prior to admission
DME: internal Defibrillator
SNF stay @ [facility] in January 2023; Home Health with [facility] in 2022
Transportation: to be determined
Discharge Plan to be determined pending hospital course; CM will monitor for needs and support disposition when determined
--- NOTE | 2024-06-12 15:48 | PTCARENOTE ---
Patient AOx3. Patient is forgetful and flat affect. Bed alarm on and audible. Patient has expressive aphasia, slurred speech, garbled speech, and slow speech. Per speech therapy strict NPO. Patient has L sided weakness. L side facial droop present.
R pupil with sluggish gaze. NIH and MSAS completed per order. Patient on RA with SpO2 greater than 92%. VSS. NSR with first degree and PVC's on monitor. Patient incontinent to bowel and bladder. Condom catheter in place. IVF running per order.
Patients at bedside throughout shift. Call marquez within reach, bed in lowest position, and bed wheels locked.
[2024-06-12] MEDS: LIPITOR PO (17:07)
[2024-06-12 17:24] LABS: Glucose - Point of Care 97 mg/dl (70-99)
[2024-06-12] MEDS: TYLENOL/FEVERALL 650 MG RECTAL (19:45)
[2024-06-12 23:48] LABS: Glucose - Point of Care 110 mg/dl (70-99)
[2024-06-13] VITALS (15 sets, daily range): BP systolic 107–140; BP diastolic 59–87; PULSE 66–71; O2SAT 96; BMI 32.4
[2024-06-13 04:21] LABS: Hematocrit 34.7 % (39.0-52.0); Hemoglobin 11.2 g/dL (13.0-18.0); Mean Corp Hgb Conc. 32.3 g/dL (33.0-37.0); Mean Corpuscular Hgb 30.5 pg (27.0-31.0); Mean Corpuscular Volume 94.6 fL (80.0-94.0); Mean Platelet Volume 11.1 fL (7.4-10.4); Platelet Count 131 10^3/uL (130-400); Red Blood Cell Count 3.67 10^6/uL (4.70-6.10); Red Cell Dist. Width 15.5 % (11.5-14.5); White Blood Cell Count 11.7 10^3/uL (4.8-10.8)
[2024-06-13 04:41] LABS: Blood Urea Nitrogen 20 mg/dl (9-20); Carbon Dioxide 24 mmol/L (22-30); Chloride 107 mmol/L (98-107); Estimated Creatinine Clearance 67 ml/min; Glucose 89 mg/dl (70-99); Potassium 4.1 mmol/L (3.5-5.1); Sodium 138 mmol/L (135-145); eGFR > 60.00
[2024-06-13 06:01] LABS: Glucose - Point of Care 92 mg/dl (70-99)
--- NOTE | 2024-06-13 07:22 | PTCARENOTE ---
No acute events overnight. NIH 19. Strict NPO. Placed on 2 liters- patient desats to 88-89% while asleep.
--- NOTE | 2024-06-13 08:05 | W.PN.NEURO.1 ---
Today's Communication / Plan
-
.
Subjective/Objective
Subjective Data
Date of Service: June 13, 2024
Neurology Follow Up Note.
24-hour events: Fever of 38.5C, saturates well on room air.
CXR(06/11/2024)-minimal opacities within the right lower lung
Mr. Mariano reports no headaches.
Labs: WBC 11.7, Pl 131.
TTE-no evidence of intramural thrombus or PFO, ASA.
Routine EEG-continuos right hemispheric slowing, no evidence of epileptiform abnormalities.
Brain MRI�acute posterior division of the R MCA infarct with no microhemorrhages or shift.
LDL�101, hemoglobin A1c�5.8, Pl 129, GFR>60.
PMH: PA-fib anxiety alto, systemic sarcoidosis, chronic hypoxic respiratory insufficiency chronic HFrEF, ICM, VT, COPD,DLP, ambulatory dysfunction, EtOH addiction, history of PE, BMI 33. GIB, OA, right wrist melanoma, NITA
PSH: Bilateral cataract surgery, AICD, bilateral knee arthroscopy, mediastinoscopy
SH: , former smoker,
FH:HTN
All:NKDA
ROS: Positive for dysarthria, left sided weakness, numbness, headache.
General: Well developed. In no acute distress.
Cardio: Regular rate. Extremities are without cyanosis or edema.
Neuro:
Mental Status: Lethargic, requires constant verbal and tactile stimulation to stay awake. Oriented to month, year, not to date. Poor attention, nonfluent. Impaired attention.
Cranial Nerves: Pupils are equally round, surgical. Does not close midline on the left lateral gaze. No BTT on the L. Left facial weakness. Moderate to severe dysarthria.
Motor: left hemiplegia, moves R leg within bed plane, R UE-antigravity.
Sensory: Unable to assess due to poor attention
Reflexes:�Grasp on the right.
Coordination: No tremors, clonic movements.
Gait: deferred
Assessment and Plan:
I. Acute right MCA stroke. Likely etiology�embolic.
II. Right frontal meningioma.
III. Encephalopathy, clinically worse.
IV. PA AFib.
-Continue Telemetry monitoring.
Aspiration precautions
-Continue aspirin 81 mg once a day p.o. or 300 mg AL
-Lipitor 40 mg QHS.
-Continue thiamine
-Fever workup
-Repeat CT head wo contrast in 7 days before resuming DOAC given the size of the stroke.
-PT.
-Continue heparin subQ for DVT prophylaxis.
-OP Neurosurgery consult
I personally reviewed all radiology and labs along with past medical records pertinent to current medical problems. Total time spent in patient care is 35 minutes.
Thank you for allowing us to participate in the care of this patient. We will continue to follow. Please do not hesitate to contact us with any questions or concerns.
Objective Data
Vital Signs
Temp Pulse Resp BP Pulse Ox
36.8 C 60 16 139/69 96
06/13/24 03:53 06/13/24 06:00 06/13/24 06:00 06/13/24 06:00 06/13/24 06:00
Lab Results
06/13/24 04:02
06/13/24 04:02
Sodium 138 mmol/L (135-145) 06/13/24 04:02
Potassium 4.1 mmol/L (3.5-5.1) 06/13/24 04:02
BUN 20 mg/dl (9-20) 06/13/24 04:02
Glucose 89 mg/dl (70-99) 06/13/24 04:02
Calcium 8.0 mg/dl (8.4-10.2) L 06/13/24 04:02
LDL Cholesterol, Calc 101 mg/dl 06/12/24 04:28
Patient Allergies
No Known Allergies Allergy (Verified 06/11/24 15:08)
Vital Signs and Labs
-
Vital Signs and Labs:
Vital Signs
Temp Pulse Resp BP Pulse Ox
36.8 C 60 16 139/69 96
06/13/24 03:53 06/13/24 06:00 06/13/24 06:00 06/13/24 06:00 06/13/24 06:00
Lab Results
06/13/24 04:02
06/13/24 04:02
Sodium 138 mmol/L (135-145) 06/13/24 04:02
Potassium 4.1 mmol/L (3.5-5.1) 06/13/24 04:02
BUN 20 mg/dl (9-20) 06/13/24 04:02
Glucose 89 mg/dl (70-99) 06/13/24 04:02
Calcium 8.0 mg/dl (8.4-10.2) L 06/13/24 04:02
LDL Cholesterol, Calc 101 mg/dl 06/12/24 04:28
Medications
-
Medications:
Generic Name Dose Route Start Last Admin
Trade Name Freq PRN Reason Stop Dose Admin
Acetaminophen 650 mg 06/11/24 14:20 06/12/24 19:45
Acetaminophen 650 Mg Rectal Suppository RECTAL 07/09/24 14:19 650 mg
Q4HPRN PRN Administration
MOONEY, mild pain, or temp >100.4F
Acetaminophen 650 mg 06/11/24 14:20
Acetaminophen 325 Mg Tablet PO 07/09/24 14:19
Q4HPRN PRN
MOONEY, mild pain, or temp >100.4F
Albuterol/Ipratropium 3 ml 06/11/24 16:33
Ipratropium 0.5/Albuterol 3 Mg (3 Ml Ampul) INH
R Q4HPRN PRN
sob or wheezing
Protocol
Aspirin 300 mg 06/11/24 12:00 06/13/24 08:34
Aspirin 300 Mg Rectal Suppository RECTAL 07/09/24 11:59 300 mg
DAILY ROMAN Administration
Atorvastatin Calcium 40 mg 06/11/24 18:00 06/12/24 17:07
Atorvastatin (Lipitor) 40 Mg Tablet PO 07/09/24 17:59 Not Given
QPM ROMAN
Dextrose 12.5 grams 06/11/24 16:32
Dextrose 50% (0.5 Grams/Ml) 50 Ml Syringe IV 07/09/24 16:31
[id number] PRN
hypoglycemia
Protocol
Folic Acid 1 mg 06/11/24 16:00 06/13/24 08:34
Folic Acid 1 Mg Tablet PO 07/09/24 15:59 Not Given
DAILY ROMAN
Glucagon 1 mg 06/11/24 16:32
Glucagon 1 Mg Vial IM 07/09/24 16:31
PRN PRN
hypoglycemia
Protocol
Heparin Sodium 5,000 units 06/11/24 20:00 06/13/24 08:34
Heparin 5,000 Units/Ml 1 Ml Vial SC 07/09/24 19:59 5,000 units
Q12 ROMAN Administration
Hydrocortisone Sodium Succinate 50 mg 06/14/24 08:00
Hydrocortisone Sodium Succinate 100 Mg/2 Ml Vial IV 07/12/24 07:59
DAILY ROMAN
Lactated Ringer's 1,000 mls @ 85 mls/hr 06/11/24 16:00 06/12/24 23:33
Lr IV 1,000 mls
.[id number] ROMAN Administration
Folic Acid 1 mg/ Sodium 50.2 mls @ 200.8 mls/hr 06/11/24 15:30 06/11/24 17:12
Chloride IV 07/09/24 15:29 50.2 mls
DAILYPRN PRN Administration
if NPO
Insulin Aspart 0 units 06/12/24 12:00 06/13/24 05:53
Insulin Aspart Low Resistance 300 Units/3 Ml Pen.Injctr SC 07/10/24 11:59 Not Given
Q6 ROMAN
Protocol
Lorazepam 1 mg 06/11/24 15:30
Lorazepam 1 Mg Tablet PO 07/09/24 15:29
Q2HPRN PRN
MSAS 5-7
Lorazepam 1 mg 06/11/24 15:30
Lorazepam 2 Mg/Ml Vial IV 07/09/24 15:29
Q1HPRN PRN
MSAS 8-11
Lorazepam 2 mg 06/11/24 15:30
Lorazepam 2 Mg/Ml Vial IV 07/09/24 15:29
Q1HPRN PRN
MSAS > 11
Metoprolol Tartrate 5 mg 06/11/24 15:33
Metoprolol 5 Mg/5 Ml Vial IV 07/09/24 15:32
Q6HPRN PRN
HR sustained >120
Miconazole Nitrate 0 applic 06/12/24 22:43
Miconazole Powder Bottle TOPICAL 07/10/24 22:42
BIDPRN PRN
PER PROTOCOL
Sodium Chloride 0 ml 06/11/24 15:30
Sodium Chloride 0.9% (Preservative Free) 10 Ml Vial IV 07/09/24 15:29
PRN PRN
To dilute IV Ativan
Protocol
Sodium Chloride 0 flush 06/11/24 16:00
Sodium Chloride 0.9% (Flush) Syringe IV 07/09/24 15:59
PER PROTOCOL ROMAN
Thiamine HCl 200 mg 06/11/24 16:00 06/13/24 08:35
Thiamine (100 Mg/Ml) 2 Ml Vial IV 06/14/24 08:01 200 mg
Q8 ROMAN Administration
Thiamine HCl 100 mg 06/14/24 20:00
Thiamine 100 Mg Tablet PO 07/12/24 19:59
BID ROMAN
Home Medications
-
Home Medications
atorvastatin 10 mg tablet 10 mg PO DAILY High Cholesterol 04/24/23
rivaroxaban 20 mg tablet (Xarelto) 20 mg PO HS Blood Clot Prevention/Tx 04/24/23
vitamin B complex 1 tab PO DAILY Supplement 04/24/23
empagliflozin 10 mg tablet (Jardiance) 10 mg PO DAILY HF #30 tabs 04/27/23
aflibercept 8 mg/0.07 mL intravitreal solution for injection (Eylea HD) 8 mg intravitreal Q4W Eye Condition 01/20/24
amiodarone 200 mg tablet (Pacerone) 200 mg PO DAILY VTach 01/20/24
peg 400-propylene glycol (PF) 0.4 %-0.3 % eye drops in a dropperette (Systane (PF)) 1 drp BOTH EYES Q6HPRN PRN dry eyes 01/20/24
sacubitril 24 mg-valsartan 26 mg tablet (Entresto) 1 tab PO BID Heart Failure 01/20/24
spironolactone 25 mg tablet 12.5 mg PO DAILY Blood Pressure 01/20/24
sulfamethoxazole 400 mg-trimethoprim 80 mg tablet (Bactrim) 1 tab PO DAILY Infection 01/20/24
therapeutic multivitamin 1 tab PO DAILY Supplement 01/20/24
acetaminophen 325 mg tablet (Tylenol) 650 mg PO DAILYPRN PRN fever 06/11/24
carvedilol 6.25 mg tablet 6.25 mg PO BID Blood Pressure 06/11/24
fluticasone fur. 100 mcg-umeclid 62.5 mcg-vilant 25 mcg inhalat.powder (Trelegy Ellipta) 1 inh inhalation R DAILY Lung/Breathing Issues 06/11/24
furosemide 20 mg tablet 20 mg PO DAILY Fluid Retention/Swelling 06/11/24
pantoprazole 40 mg tablet,delayed release 40 mg PO DAILY Gastrointestinal Issue 06/11/24
prednisone 20 mg tablet 30 mg PO DAILY ANTI-INFLAMMATION 06/11/24
tiotropium bromide 2.5 mcg/actuation mist for inhalation (Spiriva Respimat) 2 puff inhalation R DAILY Lung/Breathing Issues 06/11/24
[2024-06-13] MEDS: HEPARIN 5000 UNITS SC ×2 (08:34→20:31)
[2024-06-13] MEDS: FOLVITE PO (08:34)
[2024-06-13] MEDS: ASPIRIN 300 MG RECTAL (08:34)
[2024-06-13] MEDS: SOLU-CORTEF 50 MG IV (08:35)
[2024-06-13] MEDS: THIAMINE INJECTION 200 MG IV ×2 (08:35→15:58)
--- NOTE | 2024-06-13 08:39 | W.PN.HOSP.TC ---
Today's Communication/Plan
-
Continue aspirin per rectum. IV Lasix. PT OT SP.
Assessment / Plan
Assessment / Plan
Physical exam:
General: Acutely ill
HEENT: Normocephalic, Atraumatic and Moist Mucous Membranes
Respiratory: Bilateral rhonchi; Negative Wheezes, Rales
Cardiac: Regular Rhythm and S1/S2
GI: Soft, Nontender and Nondistended
Musculoskeletal: No Clubbing, No Cyanosis and No Edema
Neuro: Awake, Alert and Disoriented, left hemiparesis, decreased sensory in the left.
Psych: Calm
A/P:
Acute CVA:
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
Aspirin per rectum
Resume anticoagulation once cleared by neurology
Statins when able to take oral
Neurology consult appreciated
No seizures on EEG
No thrombus on echocardiogram
Confirm right stroke on MRI of the brain
No LVO on CTA of head and neck
LDL 101
Hemoglobin A1c 5.8
PT OT and speech pathology eval
IV fluids while n.p.o. but decrease rate and give IV Lasix today given peripheral edema and lung exam.
Acute metabolic encephalopathy due to stroke:
Monitor mental status and behavior
Continue thiamine
Dysphagia due to stroke:
Speech therapy recommended to keep strict n.p.o.
Discussed with family about possibly starting NG tube for feedings and they want to hold off
Meningioma, right frontal:
Neurosurgery outpatient eval
EMEKA:
IVF
Urinary catheter
Sarcoidosis:
On IV steroids--> decrease doses further today
Insulin sliding scale while on steroid
Chronic HFrEF:
IV Lasix x 1 today 40 mg
Will resume antiheart failure medications when able to take oral
Monitor volume status
Obtain chest x-ray as baseline although on exam appears euvolemic and no acute pathology but some residual chronic changes
Paroxysmal atrial fibrillation:
Hold anticoagulation for now and resume when cleared by neurology
IV metoprolol as needed if able to tolerate for sustained tachycardia
Continue cardiac monitoring
COPD:
Monitor respiratory status closely
Bronchodilators as needed
obtained cxr and no acute pathology but some residual chronic changes
History ventricular tachycardia:
Medtronic ICD placement since 2022
Alcohol use disorder:
- stays that he is not drinking anymore as much as he was before.
-MSA protocol.
-Monitor closely
Thrombocytopenia:
Monitor trend
Hypertension
Hyperlipidemia
History of PE
Nonobstructive CAD
History of syncope due to VT status post shock in the past
Former tobacco use
DVT prophylaxis:
Heparin SQ
CODE STATUS:
Full code
Total time spent on today's encounter was 52 minutes which included time spent in counseling the patient/family regarding diagnosis and treatment plan as listed above, goals of care, and symptom management. Case was discussed with nursing staff,
specialists, and care coordinators/case management. All labs and imaging personally reviewed by me. Remainder the time spent in detailed review of previous records, lab data, imaging, and other medical provider documentation.
Anticipated Discharge: > 48 hours
Subjective/Interval History
-
Date of Service: June 13, 2024
Patient more alert and following commands today. Afebrile.
Objective Data
-
Labs:
Laboratory Results
06/13/24
04:02
WBC 11.7 H
Hgb 11.2 L
Hct 34.7 L
Plt Count 131
Sodium 138
Potassium 4.1
Chloride 107
Carbon Dioxide 24
BUN 20
Creatinine 1.1
Glucose 89
Calcium 8.0 L
Vital Signs:
Vital Signs
Temp Pulse Resp BP Pulse Ox
98.2 F 60 16 139/69 96
06/13/24 03:53 06/13/24 06:00 06/13/24 06:00 06/13/24 06:00 06/13/24 06:00
I&O
06/12/24 06/13/24 06/14/24
06:59 06:59 06:59
Intake Total 1200 / 1200
Output Total 750 / 750
Balance 450 / 450
[2024-06-13] MEDS: LASIX 40 MG IV (10:55)
[2024-06-13] MEDS: LR 1000 IV ×2 (10:56→22:12)
[2024-06-13] MEDS: TYLENOL/FEVERALL 650 MG RECTAL (11:20)
--- NOTE | 2024-06-13 12:12 | PTOTSP ---
ST Follow-Up
Pt continues to present with clinical signs of at least moderate oropharyngeal dysphagia characterized by reduced oral cavity opening, reduced oral manipulation, delayed swallow initiations, and overt s/s of penetration/aspiration with thin liquids.
Pt is at an increased risk for aspiration given his level of lethargy, reduced insight to deficits, and acute onset of L sided weakness.
Recommendations:
- Continue NPO status except medications crushed in puree.
- Aspiration precautions: HOB upright as often as possible; oral care with moist swabs QID.
- PLUSH CUTTER to f/u re: trial of PO diet initiation and to determine if/when pt would be appropriate for an instrumental swallow study.
[2024-06-13 13:41] LABS: Glucose - Point of Care 111 mg/dl (70-99)
--- NOTE | 2024-06-13 14:30 | PTCARENOTE ---
Assumed care of pt this am. [facility] 18. Pt AAOx3, arousable to voice but very drowsy. Oral temp 100.4 @ 11:25. Rectal tylenol given. Repeat temp 98.5 @ 13:15.
--- NOTE | 2024-06-13 14:35 | PTCARENOTE ---
Speech therapist in to see pt, upgraded from strict NPO to NPO with meds crushed in puree. All PO meds resumed.
[2024-06-13] MEDS: PACERONE 200 MG PO (14:44)
[2024-06-13] MEDS: SPIRIVA RESPIMAT 2.5 MCG INH (15:08)
--- NOTE | 2024-06-13 17:05 | CM ---
Patient with Dx CVA. Room air. NPO/IVF. Receiving IV Folic Acid. ST for dysphagia. PT/OT recommend [facility] vs SNF.
Met with patient and ; patient attentive to the conversation and able to say a few words. Discussed with that CM will assist with d/c plans to [facility] or SNF as appropriate.
Patient will benefit from Physiatry Eval when medically appropriate.
Plan TBD.
[2024-06-13] MEDS: LIPITOR 40 MG PO (17:09)
[2024-06-13] MEDS: SYMBICORT 80/4.5 MCG INHALER 2 PUFF INH (19:50)
[2024-06-13] MEDS: ENTRESTO 24 MG/26 MG 1 TAB PO (20:29)
[2024-06-13] MEDS: COREG 6.25 MG PO (20:31)
[2024-06-14] VITALS (12 sets, daily range): BP systolic 114–147; BP diastolic 68–106; BMI 32.6
[2024-06-14] MEDS: THIAMINE INJECTION 200 MG IV ×2 (00:26→10:10)
--- NOTE | 2024-06-14 03:30 | PTCARENOTE ---
NIH 20. Unable to move L side, inattention, no sensation to L side, L side facial droop, dysarthria, no vision to L side, ataxia on both limbs. Seems to have some expressive & receptive aphasia too. pt aaox3, slow to respond but has a appropriate
conversation. NSR PVC. 2LHS. Q2T. Meds in applesauce, some coughing noted. IVF running. mouth care. CC in place. incontinent bowel. SCDS. Call marquez in reach. bed alarm on. WIll monitor.
[2024-06-14] MEDS: TYLENOL 650 MG PO ×2 (03:38→13:23)
--- NOTE | 2024-06-14 04:04 | PTCARENOTE ---
Pt noted to be moving/having muscle spasms of L foot/leg. Which is new from previous shift. Unsure if this is intentional per patient bc when asked to move L leg he is unable to.
[2024-06-14 05:33] LABS: Hematocrit 34.2 % (39.0-52.0); Hemoglobin 11.2 g/dL (13.0-18.0); Mean Corp Hgb Conc. 32.7 g/dL (33.0-37.0); Mean Corpuscular Hgb 30.6 pg (27.0-31.0); Mean Corpuscular Volume 93.4 fL (80.0-94.0); Mean Platelet Volume 11.7 fL (7.4-10.4); Platelet Count 139 10^3/uL (130-400); Red Blood Cell Count 3.66 10^6/uL (4.70-6.10); Red Cell Dist. Width 15.4 % (11.5-14.5); White Blood Cell Count 11.3 10^3/uL (4.8-10.8)
[2024-06-14 05:56] LABS: Blood Urea Nitrogen 21 mg/dl (9-20); Carbon Dioxide 28 mmol/L (22-30); Chloride 103 mmol/L (98-107); Estimated Creatinine Clearance 62 ml/min; Glucose 101 mg/dl (70-99); Magnesium 2.1 mg/dl (1.6-2.3); Potassium 3.6 mmol/L (3.5-5.1); Sodium 137 mmol/L (135-145); eGFR > 60.00
[2024-06-14] MEDS: SYMBICORT 80/4.5 MCG INHALER 2 PUFF INH ×2 (07:42→19:55)
[2024-06-14] MEDS: SPIRIVA RESPIMAT 2.5 MCG 2 PUFF INH (07:42)
--- NOTE | 2024-06-14 09:09 | W.PN.HOSP.TC ---
Addendum entered and electronically signed by Polo Zazueta MD 06/14/24 15:33:
Left buttock, healing stage 2 Pressure Injury, poa.
Original Note:
Today's Communication/Plan
-
VSE. Fever workup. Continue antiplatelets and statins.
Assessment / Plan
Assessment / Plan
Physical exam:
General: Acutely ill
HEENT: Normocephalic, Atraumatic and Moist Mucous Membranes
Respiratory: Bilateral rhonchi; Negative Wheezes, Rales
Cardiac: Regular Rhythm and S1/S2
GI: Soft, Nontender and Nondistended
Musculoskeletal: No Clubbing, No Cyanosis and No Edema
Neuro: Awake, Alert and Disoriented, left hemiparesis, decreased sensory in the left.
Psych: Calm
A/P:
Acute CVA:
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
Aspirin per oral
Resume anticoagulation once cleared by neurology
Statins when able to take oral
Neurology consult appreciated
No seizures on EEG
No thrombus on echocardiogram
Confirm right stroke on MRI of the brain
No LVO on CTA of head and neck
LDL 101
Hemoglobin A1c 5.8
PT OT and speech pathology eval
IV fluids while n.p.o. but decrease rate and give IV Lasix today given peripheral edema and lung exam.
Febrile illness:
Check blood cultures x 2
Check a chest x-ray
Check UA and culture if indicated
Check COVID-19
Check influenza
Hold off on antibiotics and follow-up workup
Acute metabolic encephalopathy due to stroke:
Monitor mental status and behavior
Continue thiamine
Dysphagia due to stroke:
Speech therapy recommended to keep n.p.o. but allow meds.
Plan for VSE today if possible.
Discussed with family about possibly starting NG tube for feedings and they want to hold off--> they will let me know if they are ready.
Meningioma, right frontal:
Neurosurgery outpatient eval
EMEKA:
IVF
Urinary catheter
Sarcoidosis:
On IV steroids--> decrease doses further today
Insulin sliding scale while on steroid
Chronic HFrEF:
IV Lasix x 1 today 40 mg
Will resume antiheart failure medications when able to take oral
Monitor volume status
Obtain chest x-ray as baseline although on exam appears euvolemic and no acute pathology but some residual chronic changes
Paroxysmal atrial fibrillation:
Hold anticoagulation for now and resume when cleared by neurology
IV metoprolol as needed if able to tolerate for sustained tachycardia
Continue cardiac monitoring
COPD:
Monitor respiratory status closely
Bronchodilators as needed
obtained cxr and no acute pathology but some residual chronic changes
History ventricular tachycardia:
Medtronic ICD placement since 2022
Alcohol use disorder:
- stays that he is not drinking anymore as much as he was before.
-MSA protocol.
-Monitor closely
Thrombocytopenia:
Monitor trend
Hypertension
Hyperlipidemia
History of PE
Nonobstructive CAD
History of syncope due to VT status post shock in the past
Former tobacco use
DVT prophylaxis:
Heparin SQ
CODE STATUS:
Full code
Total time spent on today's encounter was 52 minutes which included time spent in counseling the patient/family regarding diagnosis and treatment plan as listed above, goals of care, and symptom management. Case was discussed with nursing staff,
specialists, and care coordinators/case management. All labs and imaging personally reviewed by me. Remainder the time spent in detailed review of previous records, lab data, imaging, and other medical provider documentation.
Anticipated Discharge: > 48 hours
Subjective/Interval History
-
Date of Service: June 14, 2024
Patient still about the same. Patient had some fever.
Objective Data
-
Labs:
Laboratory Results
06/14/24
04:59
WBC 11.3 H
Hgb 11.2 L
Hct 34.2 L
Plt Count 139
Sodium 137
Potassium 3.6
Chloride 103
Carbon Dioxide 28
BUN 21 H
Creatinine 1.2
Glucose 101 H
Calcium 8.0 L
Vital Signs:
Vital Signs
Temp Pulse Resp BP Pulse Ox
100.3 F 65 14 137/81 95
06/14/24 07:22 06/14/24 07:49 06/14/24 07:49 06/14/24 04:02 06/14/24 07:49
I&O
06/13/24 06/14/24 06/15/24
06:59 06:59 06:59
Intake Total 1200 / 1200 1020 / 1020
Output Total 750 / 750 1875 / 1875
Balance 450 / 450 -855 / -855
[2024-06-14] MEDS: PROTONIX 40 MG PO (10:07)
[2024-06-14] MEDS: PACERONE 200 MG PO (10:07)
[2024-06-14] MEDS: ENTRESTO 24 MG/26 MG 1 TAB PO ×2 (10:08→20:10)
[2024-06-14] MEDS: DELTASONE 30 MG PO (10:08)
[2024-06-14] MEDS: BACTRIM 400 MG/80 MG 1 TABLET PO (10:08)
[2024-06-14] MEDS: FARXIGA 10 MG PO (10:08)
[2024-06-14] MEDS: LASIX 20 MG PO (10:09)
[2024-06-14] MEDS: ALDACTONE 12.5 MG PO (10:09)
[2024-06-14] MEDS: FOLVITE 1 MG PO (10:09)
[2024-06-14] MEDS: ASPIRIN 300 MG RECTAL (10:09)
[2024-06-14] MEDS: COREG 6.25 MG PO ×2 (10:09→20:11)
[2024-06-14] MEDS: HEPARIN 5000 UNITS SC ×2 (10:10→20:11)
[2024-06-14] MEDS: LR 1000 IV ×2 (10:10→21:36)
--- NOTE | 2024-06-14 10:29 | W.PN.NEURO.1 ---
Today's Communication / Plan
-
.
Subjective/Objective
Subjective Data
Date of Service: June 14, 2024
Neurology Follow Up Note.
24-hour events: Febrile up to 30.9.1C: Transiently hypertensive up to 147/106.
Mr. Mariano reports no headaches, he continues to have left hemiplegia and hemineglect.
Labs: WBCs�11.3, platelets�139
Mr. Mariano endorses a mild right intraorbital headache. No change in vision, strength or dysarthria.
The patient has been normotensive, afebrile.
Telemetry�sinus rhythm
TTE-no evidence of intramural thrombus or PFO, ASA.
Routine EEG-continuos right hemispheric slowing, no evidence of epileptiform abnormalities.
Brain MRI�acute posterior division of the R MCA infarct with no microhemorrhages or shift.
LDL�101, hemoglobin A1c�5.8, Pl 129.
PMH: PA-fib anxiety alto, systemic sarcoidosis, chronic hypoxic respiratory insufficiency chronic HFrEF, ICM, VT, COPD,DLP, ambulatory dysfunction, EtOH addiction, history of PE, BMI 33. GIB, OA, right wrist melanoma, NITA
PSH: Bilateral cataract surgery, AICD, bilateral knee arthroscopy, mediastinoscopy
SH: , former smoker,
FH:HTN
All:NKDA
ROS: Positive for dysarthria, left sided weakness, numbness, headache.
General: Well developed. In no acute distress.
Cardio: Regular rate. Extremities are without cyanosis or edema.
Neuro:
Mental Status: Awake, oriented to person, month, year. Poor attention and preserved comprehension. Follows simple requests consistently. Increased processing time. Nonfluent.
Cranial Nerves: Pupils are equally round, surgical. Able to cross midline on left lateral gaze. Left hemianopsia. Left facial weakness. Moderate dysarthria.
Motor: Left hemiplegia. Moves right leg within bed plane. Right arm�antigravity.
Sensory: Reduced light touch in the left arm and leg
Coordination: No tremors, clonic movements.
Gait: deferred
Assessment and Plan:
I. Acute right MCA stroke. Likely etiology�embolic.
II. Right frontal meningioma.
III. Encephalopathy (vascular, infectious), clinically stable.
IV. PA AFib.
-Continue Telemetry monitoring.
-Fall and aspiration precautions.
-Continue aspirin 81 mg once a day p.o. or 300 mg NH
-Lipitor 40 mg QHS.
-Continue thiamine
-Please check UA urine culture, will follow COVID
-Repeat CT head wo contrast on 06/18/2024 before resuming DOAC given the size of the stroke.
-PT.
-OP Neurosurgery consult
-Continue heparin subQ for DVT prophylaxis.
I personally reviewed all radiology and labs along with past medical records pertinent to current medical problems. Total time spent in patient care is 34 minutes.
Thank you for allowing us to participate in the care of this patient. We will continue to follow. Please do not hesitate to contact us with any questions or concerns.
Objective Data
Vital Signs
Temp Pulse Resp BP Pulse Ox
37.9 C 65 14 137/81 95
06/14/24 07:22 06/14/24 07:49 06/14/24 07:49 06/14/24 04:02 06/14/24 07:49
Lab Results
06/14/24 04:59
06/14/24 04:59
Sodium 137 mmol/L (135-145) 06/14/24 04:59
Potassium 3.6 mmol/L (3.5-5.1) 06/14/24 04:59
BUN 21 mg/dl (9-20) H 06/14/24 04:59
Glucose 101 mg/dl (70-99) H 06/14/24 04:59
Calcium 8.0 mg/dl (8.4-10.2) L 06/14/24 04:59
LDL Cholesterol, Calc 101 mg/dl 06/12/24 04:28
Patient Allergies
No Known Allergies Allergy (Verified 06/11/24 15:08)
Vital Signs and Labs
-
Vital Signs and Labs:
Vital Signs
Temp Pulse Resp BP Pulse Ox
37.9 C 65 14 137/81 95
06/14/24 07:22 06/14/24 07:49 06/14/24 07:49 06/14/24 04:02 06/14/24 07:49
Lab Results
06/14/24 04:59
06/14/24 04:59
Sodium 137 mmol/L (135-145) 06/14/24 04:59
Potassium 3.6 mmol/L (3.5-5.1) 06/14/24 04:59
BUN 21 mg/dl (9-20) H 06/14/24 04:59
Glucose 101 mg/dl (70-99) H 06/14/24 04:59
Calcium 8.0 mg/dl (8.4-10.2) L 06/14/24 04:59
LDL Cholesterol, Calc 101 mg/dl 06/12/24 04:28
Medications
-
Medications:
Generic Name Dose Route Start Last Admin
Trade Name Freq PRN Reason Stop Dose Admin
Acetaminophen 650 mg 06/11/24 14:20 06/13/24 11:20
Acetaminophen 650 Mg Rectal Suppository RECTAL 07/09/24 14:19 650 mg
Q4HPRN PRN Administration
MOONEY, mild pain, or temp >100.4F
Acetaminophen 650 mg 06/11/24 14:20 06/14/24 03:38
Acetaminophen 325 Mg Tablet PO 07/09/24 14:19 650 mg
Q4HPRN PRN Administration
MOONEY, mild pain, or temp >100.4F
Albuterol/Ipratropium 3 ml 06/11/24 16:33
Ipratropium 0.5/Albuterol 3 Mg (3 Ml Ampul) INH
R Q4HPRN PRN
sob or wheezing
Protocol
Amiodarone HCl 200 mg 06/13/24 14:00 06/14/24 10:07
Amiodarone 200 Mg Tablet PO 07/11/24 13:59 200 mg
DAILY ROMAN Administration
Artificial Tears 1 drops 06/13/24 13:57
Artificial Tears Pf (Refresh) 10 Drop Droperette BOTH EYES 07/11/24 13:56
Q6HPRN PRN
dry eyes
Aspirin 300 mg 06/11/24 12:00 06/14/24 10:09
Aspirin 300 Mg Rectal Suppository RECTAL 07/09/24 11:59 300 mg
DAILY ROMAN Administration
Atorvastatin Calcium 40 mg 06/11/24 18:00 06/13/24 17:09
Atorvastatin (Lipitor) 40 Mg Tablet PO 07/09/24 17:59 40 mg
QPM ROMAN Administration
Budesonide/Formoterol Fumarate 2 puff 06/13/24 20:00 06/14/24 07:42
Symbicort Inhaler 80/4.5 INH 07/11/24 19:59 2 puff
R BID ROMAN Administration
Protocol
Carvedilol 6.25 mg 06/13/24 20:00 06/14/24 10:09
Carvedilol 6.25 Mg Tablet PO 07/11/24 19:59 6.25 mg
BID ROMAN Administration
Dapagliflozin 10 mg 06/14/24 08:00 06/14/24 10:08
Dapagliflozin (Farxiga) 10 Mg Tablet PO 07/12/24 07:59 10 mg
DAILY ROMAN Administration
Dextrose 12.5 grams 06/11/24 16:32
Dextrose 50% (0.5 Grams/Ml) 50 Ml Syringe IV 07/09/24 16:31
Y33ODAN PRN
hypoglycemia
Protocol
Folic Acid 1 mg 06/11/24 16:00 06/14/24 10:09
Folic Acid 1 Mg Tablet PO 07/09/24 15:59 1 mg
DAILY ROMAN Administration
Furosemide 20 mg 06/14/24 08:00 06/14/24 10:09
Furosemide 20 Mg Tablet PO 07/12/24 07:59 20 mg
DAILY ROMAN Administration
Glucagon 1 mg 06/11/24 16:32
Glucagon 1 Mg Vial IM 07/09/24 16:31
PRN PRN
hypoglycemia
Protocol
Heparin Sodium 5,000 units 06/11/24 20:00 06/14/24 10:10
Heparin 5,000 Units/Ml 1 Ml Vial SC 07/09/24 19:59 5,000 units
Q12 ROMAN Administration
Lactated Ringer's 1,000 mls @ 85 mls/hr 06/11/24 16:00 06/14/24 10:10
Lr IV 1,000 mls
[id number] ROMAN Administration
Folic Acid 1 mg/ Sodium 50.2 mls @ 200.8 mls/hr 06/11/24 15:30 06/11/24 17:12
Chloride IV 07/09/24 15:29 50.2 mls
DAILYPRN PRN Administration
if NPO
Lorazepam 1 mg 06/11/24 15:30
Lorazepam 1 Mg Tablet PO 07/09/24 15:29
Q2HPRN PRN
MSAS 5-7
Lorazepam 1 mg 06/11/24 15:30
Lorazepam 2 Mg/Ml Vial IV 07/09/24 15:29
Q1HPRN PRN
MSAS 8-11
Lorazepam 2 mg 06/11/24 15:30
Lorazepam 2 Mg/Ml Vial IV 07/09/24 15:29
Q1HPRN PRN
MSAS > 11
Metoprolol Tartrate 5 mg 06/11/24 15:33
Metoprolol 5 Mg/5 Ml Vial IV 07/09/24 15:32
Q6HPRN PRN
HR sustained >120
Miconazole Nitrate 0 applic 06/12/24 22:43
Miconazole Powder Bottle TOPICAL 07/10/24 22:42
BIDPRN PRN
PER PROTOCOL
Pantoprazole Sodium 40 mg 06/14/24 08:00 06/14/24 10:07
Pantoprazole 40 Mg Delayed Release Tablet PO 07/12/24 07:59 40 mg
DAILY ROMAN Administration
Prednisone 30 mg 06/14/24 08:00 06/14/24 10:08
Prednisone 20 Mg Tablet PO 07/12/24 07:59 30 mg
DAILY ROMAN Administration
Sacubitril/Valsartan 1 tab 06/13/24 20:00 06/14/24 10:08
Sacubitril 24 Mg/Valsartan 26 Mg (Entresto) Tab PO 07/11/24 19:59 1 tab
BID ROMAN Administration
Sodium Chloride 0 ml 06/11/24 15:30
Sodium Chloride 0.9% (Preservative Free) 10 Ml Vial IV 07/09/24 15:29
PRN PRN
To dilute IV Ativan
Protocol
Sodium Chloride 0 flush 06/11/24 16:00
Sodium Chloride 0.9% (Flush) Syringe IV 07/09/24 15:59
PER PROTOCOL ROMAN
Spironolactone 12.5 mg 06/14/24 08:00 06/14/24 10:09
Spironolactone 12.5 Mg Dose (1/2 Of 25 Mg Tablet) PO 07/12/24 07:59 12.5 mg
DAILY ROMAN Administration
Thiamine HCl 100 mg 06/14/24 20:00
Thiamine 100 Mg Tablet PO 07/12/24 19:59
BID ROMAN
Tiotropium [place] 2 puff 06/13/24 14:00 06/14/24 07:42
Tiotropium (Spiriva Respimat) 2.5 Mcg Inhaler INH 07/11/24 13:59 2 puff
R DAILY ROMAN Administration
Protocol
Trimethoprim/Sulfamethoxazole 1 tablet 06/14/24 08:00 06/14/24 10:08
Sulfamethoxazole (400 Mg)/Trimethoprim (80 Mg) Tablet PO 1 tablet
DAILY ROMAN Administration
Home Medications
-
Home Medications
atorvastatin 10 mg tablet 10 mg PO DAILY High Cholesterol 04/24/23
rivaroxaban 20 mg tablet (Xarelto) 20 mg PO HS Blood Clot Prevention/Tx 04/24/23
vitamin B complex 1 tab PO DAILY Supplement 04/24/23
empagliflozin 10 mg tablet (Jardiance) 10 mg PO DAILY HF #30 tabs 04/27/23
aflibercept 8 mg/0.07 mL intravitreal solution for injection (Eylea HD) 8 mg intravitreal Q4W Eye Condition 01/20/24
amiodarone 200 mg tablet (Pacerone) 200 mg PO DAILY VTach 01/20/24
peg 400-propylene glycol (PF) 0.4 %-0.3 % eye drops in a dropperette (Systane (PF)) 1 drp BOTH EYES Q6HPRN PRN dry eyes 01/20/24
sacubitril 24 mg-valsartan 26 mg tablet (Entresto) 1 tab PO BID Heart Failure 01/20/24
spironolactone 25 mg tablet 12.5 mg PO DAILY Blood Pressure 01/20/24
sulfamethoxazole 400 mg-trimethoprim 80 mg tablet (Bactrim) 1 tab PO DAILY Infection 01/20/24
therapeutic multivitamin 1 tab PO DAILY Supplement 01/20/24
acetaminophen 325 mg tablet (Tylenol) 650 mg PO DAILYPRN PRN fever 06/11/24
carvedilol 6.25 mg tablet 6.25 mg PO BID Blood Pressure 06/11/24
fluticasone fur. 100 mcg-umeclid 62.5 mcg-vilant 25 mcg inhalat.powder (Trelegy Ellipta) 1 inh inhalation R DAILY Lung/Breathing Issues 06/11/24
furosemide 20 mg tablet 20 mg PO DAILY Fluid Retention/Swelling 06/11/24
pantoprazole 40 mg tablet,delayed release 40 mg PO DAILY Gastrointestinal Issue 06/11/24
prednisone 20 mg tablet 30 mg PO DAILY ANTI-INFLAMMATION 06/11/24
tiotropium bromide 2.5 mcg/actuation mist for inhalation (Spiriva Respimat) 2 puff inhalation R DAILY Lung/Breathing Issues 06/11/24
--- NOTE | 2024-06-14 12:30 | PTOTSP ---
SPEECH THERAPY SPEECH/LANGUAGE/COGNITIVE COMMUNICATION EVALUATION:
Patient exhibits mild-moderately impaired speech (dysarthria), mildly impaired Expressive language skills, moderate Receptive language impairments, and moderate cognitive communication impairments characterized most significantly by: Left Neglect,
reduced STM, reduced attention, reduced problem solving and executive functioning skills, reduced insight, reduced reasoning and categorizing skills, and prolonged processing speed. Speech/language/cognitive communication impairments are acutely
related to Right MCA CVA. Recommend intensive ST services at the acute care level and continued upon discharge to treat speech/language and cognitive communication impairments. Recommend continued assessment of visuospatial skills, reading/writing,
and higher level cognitive skills as lethargy improves.
--- NOTE | 2024-06-14 12:59 | PN.CDI ---
CDI
- -
CDI:
Physician Documentation Request
Admit Date: 06/11/24 10:44
Dear Doctor Marbin,
Patient admitted for acute CVA.
06/12 Wound care note: 'L buttock with healing stage 2 PI.'
Selected Entries
06/12/24
08:00 06/12/24
11:01
Pressure injury appearance [Present on admission Left Buttock] Slough-suarez
Soft Slough-suarez
Pressure injury stage [Present on admission Left Buttock] Stage 2 Stage 2
Surrounding Skin - [Present on admission Left Buttock] Dry and intact
Physician documentation of the type and location of wounds is required for compliant documentation. Based on the above clinical findings and your assessment, please provide the following in your progress note:
1. Location of the ulcer/wound, including laterality.
2. Type (etiology) of ulcer/wound:
- Diabetic ulcer
- Arterial (ischemic) ulcer
- Traumatic wound
- Venous stasis ulcer
- Pressure (decubitus) ulcer
- Non-healing surgical wound
- Other
- Unable to determine
3. For a non-pressure ulcer, please indicate the depth/severity:
- Limited to the breakdown of skin
- With fat layer exposed
- With necrosis of muscle
- With necrosis of bone
- Other
- Unable to determine
4. If a pressure ulcer, please also include the stage* of the ulcer:
- Stage 1 - Skin intact, non-blanchable redness
- Stage 2 - Partial thickness loss of dermis, includes intact or open blister
- Stage 3 - Full thickness tissue not including bone, tendon or muscle
- Stage 4 - Full thickness tissue loss, including exposed bone, tendon or muscle
- Unstageable - Full thickness loss in which the base of the ulcer is covered by slough (yellow, suarez, rosa, green or brown) and/or eschar (suarez, brown or black) in the wound bed.
- Unable to determine
Use of terms such as suspected, likely, concern for, or probable (associated with a specific diagnosis that is being evaluated, monitored, or treated as if it exists) are acceptable and can be coded in the inpatient setting, when documented at the
time of discharge.
Thank you,
Estee Sanabria RN, BSN
CDI Specialist
Available via [place] text
Please use your independent medical judgment in providing your response.
*Source: National Pressure Ulcer Advisory Panel (NPUAP)
[2024-06-14] MEDS: LASIX 40 MG IV (13:23)
[2024-06-14 16:28] LABS: COVID-19 Antigen Negative (Negative)
[2024-06-14 16:38] LABS: Urine Albumin Trace (Neg - Trace); Urine Bilirubin Negative (Negative); Urine Character Clear (Clear); Urine Color Yellow; Urine Glucose 2+ (Negative); Urine Ketone Trace (Negative); Urine Leukocyte Negative (Negative); Urine Nitrite Negative (Negative); Urine Occult Blood Negative (Negative); Urine Urobilinogen 1+ (Neg - 1+)
--- NOTE | 2024-06-14 17:06 | CM ---
Patient with Dx CVA. Febrile today. O2 2L. NPO/IVF. VSE ordered. Per nursing; some expressive & receptive aphasia too. pt aaox3, slow to respond. PT & OT 06/13; acute v skilled rehab. PT/OT held today due to fever and lethargy.
Patient may benefit from Physiatry Eval when medically appropriate.
Plan TBD.
[2024-06-14] MEDS: LIPITOR 40 MG PO (17:13)
--- NOTE | 2024-06-14 19:35 | PTCARENOTE ---
day shift note. see nursing assessment and worklist. pt drowsy throughout shift, febrile during night. made aware this am. flu and covid swabs , urine and blood cultures sent. chest x ray completed. at bedside most of day. pt unable to go
for video swallow d/t temp 101 causing lethargy. tylenol given with relief of fever. ct of head completed per order.
[2024-06-14] MEDS: VITAMIN B1 100 MG PO (20:10)
--- NOTE | 2024-06-14 22:02 | W.PN.UPDATE ---
Update Note
Progress Note Update
CT head wo contrast(06/14/2024) showed a new R SUE territory infarct and evolution of known R MCA infarct with 2 mm right to left shift.
Plan:
-Continue Aspirin 81 mg QD if safe to swallow.
-Cardiology consult for SARINA
-Repeat CT head on 06/18/2024.
Dr. Man
Neurology
--- NOTE | 2024-06-14 23:57 | PTCARENOTE ---
Caring for pt overnight. aaox3, at bedside. NIH 16, slight improvement from previous. Pt was able to see upper visual floyd on L side, & has slight contraction in L foot/leg and now is stating he can feel the left side of his face. VSS. IVF
running. Preliminary reports from [facility] came back positive, overnight LINER CHECKER aware and will pass onto day shift. Q2T. Incontinent. NPO. Mouth care. Can take med with applesauce, no coughing, tolerated well. call marquez in reach, will monitor.
[2024-06-15] VITALS (14 sets, daily range): BP systolic 115–154; BP diastolic 74–92; PULSE 64; BMI 32.5
--- NOTE | 2024-06-15 02:26 | PTCARENOTE ---
pt desating on 2LNC even when awake, desating to 85% briefly. Now up to 4LNC
[2024-06-15 04:58] LABS: % Basophils 0.2 % (0-2); % Eosinophils 0.1 % (0-6); % Immature Granulocytes 3.3 % (0-0.5); % Lymphocytes 3.8 % (20.5-51.1); % Monocytes 3.2 % (1.7-9.3); % Neutrophils 89.4 % (42.2-75.2); Absolute Immature Granulocytes 0.4 10^3/uL (0-0.05); Absolute Lymphocytes 0.4 10^3/uL (1.2-3.4); Absolute Monocytes 0.4 10^3/uL (0.1-0.6); Absolute Neutrophils 10.2 10^3/uL (1.4-6.5); Hemoglobin 11.6 g/dL (13.0-18.0); Mean Corp Hgb Conc. 33.1 g/dL (33.0-37.0); Mean Corpuscular Hgb 30.4 pg (27.0-31.0); Mean Corpuscular Volume 91.9 fL (80.0-94.0); Mean Platelet Volume 11.7 fL (7.4-10.4); Nucleated Red Blood Cells % 0 % (-); Platelet Count 139 10^3/uL (130-400); Red Blood Cell Count 3.81 10^6/uL (4.70-6.10); Red Cell Dist. Width 15.3 % (11.5-14.5); White Blood Cell Count 11.5 10^3/uL (4.8-10.8)
[2024-06-15 05:26] LABS: Blood Urea Nitrogen 26 mg/dl (9-20); Calcium 8.1 mg/dl (8.4-10.2); Carbon Dioxide 26 mmol/L (22-30); Chloride 103 mmol/L (98-107); Estimated Creatinine Clearance 68 ml/min; Glucose 91 mg/dl (70-99); Potassium 3.9 mmol/L (3.5-5.1); Sodium 139 mmol/L (135-145); eGFR > 60.00
[2024-06-15] MEDS: SPIRIVA RESPIMAT 2.5 MCG 2 PUFF INH (07:51)
[2024-06-15] MEDS: SYMBICORT 80/4.5 MCG INHALER 2 PUFF INH ×2 (07:51→19:32)
[2024-06-15] MEDS: VITAMIN B1 100 MG PO ×2 (08:36→20:27)
[2024-06-15] MEDS: FARXIGA 10 MG PO (08:36)
[2024-06-15] MEDS: LASIX 20 MG PO (08:37)
[2024-06-15] MEDS: ALDACTONE 12.5 MG PO (08:37)
[2024-06-15] MEDS: COREG 6.25 MG PO ×2 (08:37→20:27)
[2024-06-15] MEDS: PROTONIX 40 MG PO (08:37)
[2024-06-15] MEDS: DELTASONE 30 MG PO (08:37)
[2024-06-15] MEDS: LOW STRENGTH ASPIRIN 81 MG PO (08:37)
[2024-06-15] MEDS: FOLVITE 1 MG PO (08:37)
[2024-06-15] MEDS: ENTRESTO 24 MG/26 MG 1 TAB PO ×2 (08:38→20:27)
[2024-06-15] MEDS: PACERONE 200 MG PO (08:38)
[2024-06-15] MEDS: BACTRIM 400 MG/80 MG 1 TABLET PO (08:38)
[2024-06-15] MEDS: HEPARIN 5000 UNITS SC ×2 (08:38→20:28)
--- NOTE | 2024-06-15 09:06 | W.PN.NEURO.1 ---
Today's Communication / Plan
-
Not sure benefit of transesophageal echocardiogram as the patient will be returned to the use of rivaroxaban after June 18, 2024, routinely; patient should follow-up with his usual outpatient sheriff
No intervention needed for right frontal meningioma, repeat imaging in approximately 1 year to determine stability
Advance atorvastatin from 40 mg to 80 mg to ensure adequate coverage against elevated LDL, greater than 70
Neuro Assessment/Plan
Assessment
Brain MRI showed acute posterior division of the R MCA ischemic infarct with no microhemorrhages or shift.
TTE-no evidence of intramural thrombus or PFO, ASA.
Routine EEG- right hemispheric slowing, no evidence of epileptiform abnormalities.
LDL�101, hemoglobin A1c�5.8, Pl 129.
Assessment and Plan:
I. Acute right MCA stroke, posterior to meningioma. Likely etiology�embolic.
II. Right frontal meningioma.
Plan
Not sure benefit of transesophageal echocardiogram as the patient will be returned to the use of rivaroxaban after June 18, 2024, routinely; patient should follow-up with his usual outpatient sheriff
Continue thiamine
No intervention needed for right frontal meningioma, repeat imaging in approximately 1 year to determine stability
Advance atorvastatin from 40 mg to 80 mg to ensure adequate coverage against elevated LDL, greater than 70
Will follow as needed
Subjective/Objective
Subjective Data
Date of Service: June 15, 2024
Objective Data
Vital Signs
Temp Pulse Resp BP Pulse Ox
37.5 C 62 24 147/82 94
06/15/24 07:48 06/15/24 08:37 06/15/24 07:55 06/15/24 08:37 06/15/24 07:55
Lab Results
06/15/24 04:39
06/15/24 04:39
Sodium 139 mmol/L (135-145) 06/15/24 04:39
Potassium 3.9 mmol/L (3.5-5.1) 06/15/24 04:39
BUN 26 mg/dl (9-20) H 06/15/24 04:39
Glucose 91 mg/dl (70-99) 06/15/24 04:39
Calcium 8.1 mg/dl (8.4-10.2) L 06/15/24 04:39
LDL Cholesterol, Calc 101 mg/dl 06/12/24 04:28
Patient Allergies
No Known Allergies Allergy (Verified 06/11/24 15:08)
Data Reviewed
-
MRI Head: Report Reviewed and Image Reviewed
Past History
Past History
ED Past Medical History: Arrthythmia (Paroxysmal atrial fibrillation), Cancer (Basal cell skin cancer), CHF, COPD, CVA (Right M2 ischemic stroke May 2024), GERD, HTN, Hypercholesterolemia and Other (Sarcoidosis, PE, meningioma right frontal)
ED Past Surgical History: Cardiac (Cardiac catheterization December 2014, nonocclusive CAD) and Orthopedic (Left knee)
Social History
Tobacco: Former smoker
Alcohol: Daily
Drug: None
Personal:
Living: with family
Employment: Retired
Family History
Family History: Hypertension
Medications
-
Medications:
Generic Name Dose Route Start Last Admin
Trade Name Freq PRN Reason Stop Dose Admin
Acetaminophen 650 mg 06/11/24 14:20 06/14/24 13:23
Acetaminophen 325 Mg Tablet PO 07/09/24 14:19 650 mg
Q4HPRN PRN Administration
MOONEY, mild pain, or temp >100.4F
Albuterol/Ipratropium 3 ml 06/11/24 16:33
Ipratropium 0.5/Albuterol 3 Mg (3 Ml Ampul) INH
R Q4HPRN PRN
sob or wheezing
Protocol
Amiodarone HCl 200 mg 06/13/24 14:00 06/15/24 08:38
Amiodarone 200 Mg Tablet PO 07/11/24 13:59 200 mg
DAILY ROMAN Administration
Artificial Tears 1 drops 06/13/24 13:57
Artificial Tears Pf (Refresh) 10 Drop Droperette BOTH EYES 07/11/24 13:56
Q6HPRN PRN
dry eyes
Aspirin 81 mg 06/15/24 08:00 06/15/24 08:37
Aspirin 81 Mg Chewable Tablet PO 07/13/24 07:59 81 mg
DAILY ROMAN Administration
Atorvastatin Calcium 40 mg 06/11/24 18:00 06/14/24 17:13
Atorvastatin (Lipitor) 40 Mg Tablet PO 07/09/24 17:59 40 mg
QPM ROMAN Administration
Budesonide/Formoterol Fumarate 2 puff 06/13/24 20:00 06/15/24 07:51
Symbicort Inhaler 80/4.5 INH 07/11/24 19:59 2 puff
R BID ROMAN Administration
Protocol
Carvedilol 6.25 mg 06/13/24 20:00 06/15/24 08:37
Carvedilol 6.25 Mg Tablet PO 07/11/24 19:59 6.25 mg
BID ROMAN Administration
Dapagliflozin 10 mg 06/14/24 08:00 06/15/24 08:36
Dapagliflozin (Farxiga) 10 Mg Tablet PO 07/12/24 07:59 10 mg
DAILY ROMAN Administration
Dextrose 12.5 grams 06/11/24 16:32
Dextrose 50% (0.5 Grams/Ml) 50 Ml Syringe IV 07/09/24 16:31
[id number] PRN
hypoglycemia
Protocol
Folic Acid 1 mg 06/11/24 16:00 06/15/24 08:37
Folic Acid 1 Mg Tablet PO 07/09/24 15:59 1 mg
DAILY ROMAN Administration
Furosemide 20 mg 06/14/24 08:00 06/15/24 08:37
Furosemide 20 Mg Tablet PO 07/12/24 07:59 20 mg
DAILY ROMAN Administration
Glucagon 1 mg 06/11/24 16:32
Glucagon 1 Mg Vial IM 07/09/24 16:31
PRN PRN
hypoglycemia
Protocol
Heparin Sodium 5,000 units 06/11/24 20:00 06/15/24 08:38
Heparin 5,000 Units/Ml 1 Ml Vial SC 07/09/24 19:59 5,000 units
Q12 ROMAN Administration
Lactated Ringer's 1,000 mls @ 85 mls/hr 06/11/24 16:00 06/14/24 21:36
Lr IV 1,000 mls
[id number] ROMAN Administration
Folic Acid 1 mg/ Sodium 50.2 mls @ 200.8 mls/hr 06/11/24 15:30 06/11/24 17:12
Chloride IV 07/09/24 15:29 50.2 mls
DAILYPRN PRN Administration
if NPO
Lorazepam 1 mg 06/11/24 15:30
Lorazepam 1 Mg Tablet PO 07/09/24 15:29
Q2HPRN PRN
MSAS 5-7
Lorazepam 1 mg 06/11/24 15:30
Lorazepam 2 Mg/Ml Vial IV 07/09/24 15:29
Q1HPRN PRN
MSAS 8-11
Lorazepam 2 mg 06/11/24 15:30
Lorazepam 2 Mg/Ml Vial IV 07/09/24 15:29
Q1HPRN PRN
MSAS > 11
Metoprolol Tartrate 5 mg 06/11/24 15:33
Metoprolol 5 Mg/5 Ml Vial IV 07/09/24 15:32
Q6HPRN PRN
HR sustained >120
Miconazole Nitrate 0 applic 06/12/24 22:43
Miconazole Powder Bottle TOPICAL 07/10/24 22:42
BIDPRN PRN
PER PROTOCOL
Pantoprazole Sodium 40 mg 06/14/24 08:00 06/15/24 08:37
Pantoprazole 40 Mg Delayed Release Tablet PO 07/12/24 07:59 40 mg
DAILY ROMAN Administration
Prednisone 30 mg 06/14/24 08:00 06/15/24 08:37
Prednisone 20 Mg Tablet PO 07/12/24 07:59 30 mg
DAILY ROMAN Administration
Sacubitril/Valsartan 1 tab 06/13/24 20:00 06/15/24 08:38
Sacubitril 24 Mg/Valsartan 26 Mg (Entresto) Tab PO 07/11/24 19:59 1 tab
BID ROMAN Administration
Sodium Chloride 0 ml 06/11/24 15:30
Sodium Chloride 0.9% (Preservative Free) 10 Ml Vial IV 07/09/24 15:29
PRN PRN
To dilute IV Ativan
Protocol
Sodium Chloride 0 flush 06/11/24 16:00
Sodium Chloride 0.9% (Flush) Syringe IV 07/09/24 15:59
PER PROTOCOL ROMAN
Spironolactone 12.5 mg 06/14/24 08:00 06/15/24 08:37
Spironolactone 12.5 Mg Dose (1/2 Of 25 Mg Tablet) PO 07/12/24 07:59 12.5 mg
DAILY ROMAN Administration
Thiamine HCl 100 mg 06/14/24 20:00 06/15/24 08:36
Thiamine 100 Mg Tablet PO 07/12/24 19:59 100 mg
BID ROMAN Administration
Tiotropium [place] 2 puff 06/13/24 14:00 06/15/24 07:51
Tiotropium (Spiriva Respimat) 2.5 Mcg Inhaler INH 07/11/24 13:59 2 puff
R DAILY ROMAN Administration
Protocol
Trimethoprim/Sulfamethoxazole 1 tablet 06/14/24 08:00 06/15/24 08:38
Sulfamethoxazole (400 Mg)/Trimethoprim (80 Mg) Tablet PO 1 tablet
DAILY ROMAN Administration
--- NOTE | 2024-06-15 10:09 | W.PN.HOSP.TC ---
Today's Communication/Plan
-
IV antibiotics. ID consult. Neurology eval
Assessment / Plan
Assessment / Plan
Physical exam:
General: Acutely ill
HEENT: Normocephalic, Atraumatic and Moist Mucous Membranes
Respiratory: Bilateral rhonchi; Negative Wheezes, Rales
Cardiac: Regular Rhythm and S1/S2
GI: Soft, Nontender and Nondistended
Musculoskeletal: No Clubbing, No Cyanosis and No Edema
Neuro: Awake, Alert and Disoriented, left hemiparesis, decreased sensory in the left.
Psych: Calm
A/P:
Acute CVA:
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
Aspirin per oral
Resume anticoagulation once cleared by neurology
Statins to continue
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
Neurology consult appreciated
No seizures on EEG
No thrombus or PFO on transthoracic echocardiogram
Confirm right stroke on MRI of the brain
No LVO on CTA of head and neck
LDL 101
Hemoglobin A1c 5.8
PT OT and speech pathology eval
IV fluids low rate.
Febrile illness due to bacteremia:
Blood cultures with Enterococcus species
Will start IV ampicillin today
ID consult-discussed with ID via [place] text
Check a chest x-ray and no acute chest pathology
Check UA and unremarkable
Check COVID-19 and negative
Check influenza
Acute metabolic encephalopathy due to stroke:
Monitor mental status and behavior
Continue thiamine
Dysphagia due to stroke:
Speech therapy recommended to keep n.p.o. but allow meds.
Plan for VSE on Monday
Discussed with family about possibly starting NG tube for feedings and they want to hold off--> they will let me know if they are ready.
Meningioma, right frontal:
Neurosurgery outpatient eval
EMEKA:
Resolved
Urinary catheter
Sarcoidosis:
On his usual oral dose of steroids
Insulin sliding scale while on steroid
Chronic HFrEF:
On his usual oral dose of diuretics
Back to his antiheart failure medications
Monitor volume status
Paroxysmal atrial fibrillation:
Hold anticoagulation for now and resume when cleared by neurology
IV metoprolol as needed if able to tolerate for sustained tachycardia
Continue cardiac monitoring
COPD:
Monitor respiratory status closely
Bronchodilators as needed
obtained cxr and no acute pathology but some residual chronic changes
History ventricular tachycardia:
Medtronic ICD placement since 2022
Alcohol use disorder:
- stays that he is not drinking anymore as much as he was before.
-MSA protocol.
-Monitor closely
Thrombocytopenia:
Monitor trend
Hypertension
Hyperlipidemia
History of PE
Nonobstructive CAD
History of syncope due to VT status post shock in the past
Former tobacco use
DVT prophylaxis:
Heparin SQ
CODE STATUS:
Full code
Total time spent on today's encounter was 52 minutes which included time spent in counseling the patient/family regarding diagnosis and treatment plan as listed above, goals of care, and symptom management. Case was discussed with nursing staff,
specialists, and care coordinators/case management. All labs and imaging personally reviewed by me. Remainder the time spent in detailed review of previous records, lab data, imaging, and other medical provider documentation.
Anticipated Discharge: > 48 hours
Subjective/Interval History
-
Date of Service: June 15, 2024
Patient looks better today overall. Still hemiparesis. Afebrile today.
Objective Data
-
Labs:
Laboratory Results
06/15/24
04:39
WBC 11.5 H
Hgb 11.6 L
Hct 35.0 L
Plt Count 139
Sodium 139
Potassium 3.9
Chloride 103
Carbon Dioxide 26
BUN 26 H
Creatinine 1.1
Glucose 91
Calcium 8.1 L
Vital Signs:
Vital Signs
Temp Pulse Resp BP Pulse Ox
99.5 F 62 24 147/82 94
06/15/24 07:48 06/15/24 08:37 06/15/24 07:55 06/15/24 08:37 06/15/24 07:55
I&O
06/14/24 06/15/24 06/16/24
06:59 06:59 06:59
Intake Total 1020 / 1020 1000 / 1000
Output Total 1875 / 1875 500 / 500
Balance -855 / -855 500 / 500
[2024-06-15] MEDS: LR 1000 IV ×2 (11:39→22:47)
[2024-06-15] MEDS: AMPICILLIN 108 MG IV ×2 (16:51→22:45)
[2024-06-15] MEDS: LIPITOR 80 MG PO (18:02)
[2024-06-15] MEDS: TYLENOL PO (22:45)
[2024-06-16] VITALS (13 sets, daily range): BP systolic 98–151; BP diastolic 57–96; PULSE 62–63; O2SAT 90–91; BMI 32.6
[2024-06-16] MEDS: OFIRMEV 100 IV (00:22)
--- NOTE | 2024-06-16 04:50 | PTCARENOTE ---
Pt had episode of confusion with agitation last night wanted to call thinking she left him and 'all day and never said by'. called bedside with Pt, took some convincing but Pt finally moved on in conversation and appeared to become more
pleasant. Pt appeared to get rest through out night, respirations even unlabored spo2 95% 4Lnc. Assessment care and vitals as charted.
[2024-06-16] MEDS: AMPICILLIN 108 MG IV ×5 (05:05→22:15)
[2024-06-16] MEDS: DESENEX/MITRAZOL/ZEASORB 1 APPLIC TOPICAL (05:18)
[2024-06-16 05:49] LABS: % Basophils 0.1 % (0-2); % Eosinophils 0.2 % (0-6); % Immature Granulocytes 4.5 % (0-0.5); % Lymphocytes 4.5 % (20.5-51.1); % Monocytes 3.4 % (1.7-9.3); % Neutrophils 87.3 % (42.2-75.2); Absolute Immature Granulocytes 0.6 10^3/uL (0-0.05); Absolute Lymphocytes 0.6 10^3/uL (1.2-3.4); Absolute Monocytes 0.4 10^3/uL (0.1-0.6); Hematocrit 37.4 % (39.0-52.0); Hemoglobin 11.5 g/dL (13.0-18.0); Mean Corp Hgb Conc. 30.7 g/dL (33.0-37.0); Mean Corpuscular Hgb 29.5 pg (27.0-31.0); Mean Corpuscular Volume 95.9 fL (80.0-94.0); Mean Platelet Volume 11.7 fL (7.4-10.4); Nucleated Red Blood Cells % 0 % (-); Platelet Count 160 10^3/uL (130-400); Red Cell Dist. Width 15.7 % (11.5-14.5); White Blood Cell Count 12.6 10^3/uL (4.8-10.8)
[2024-06-16 06:14] LABS: Blood Urea Nitrogen 30 mg/dl (9-20); Calcium 7.9 mg/dl (8.4-10.2); Carbon Dioxide 26 mmol/L (22-30); Chloride 105 mmol/L (98-107); Estimated Creatinine Clearance 62 ml/min; Glucose 101 mg/dl (70-99); Sodium 140 mmol/L (135-145); eGFR > 60.00
[2024-06-16] MEDS: SYMBICORT 80/4.5 MCG INHALER 2 PUFF INH ×2 (08:15→20:10)
[2024-06-16] MEDS: SPIRIVA RESPIMAT 2.5 MCG 2 PUFF INH (08:16)
[2024-06-16] MEDS: PACERONE 200 MG PO (08:17)
[2024-06-16] MEDS: VITAMIN B1 100 MG PO ×2 (08:18→20:15)
[2024-06-16] MEDS: DELTASONE 30 MG PO (08:18)
[2024-06-16] MEDS: BACTRIM 400 MG/80 MG 1 TABLET PO (08:18)
[2024-06-16] MEDS: LOW STRENGTH ASPIRIN 81 MG PO (08:19)
[2024-06-16] MEDS: ENTRESTO 24 MG/26 MG 1 TAB PO ×2 (08:19→20:14)
[2024-06-16] MEDS: COREG 6.25 MG PO ×2 (08:19→20:15)
[2024-06-16] MEDS: ALDACTONE 12.5 MG PO (08:19)
[2024-06-16] MEDS: FARXIGA 10 MG PO (08:19)
[2024-06-16] MEDS: HEPARIN 5000 UNITS SC ×2 (08:20→20:15)
[2024-06-16] MEDS: LASIX 20 MG PO (08:20)
[2024-06-16] MEDS: PROTONIX 40 MG PO (08:32)
[2024-06-16] MEDS: FOLVITE 1 MG PO (08:32)
--- NOTE | 2024-06-16 08:59 | W.PN.HOSP.TC ---
Today's Communication/Plan
-
Antiplatelet and statins. IV antibiotics. ID consult. VSE tomorrow
Assessment / Plan
Assessment / Plan
Physical exam:
General: Acutely ill
HEENT: Normocephalic, Atraumatic and Moist Mucous Membranes
Respiratory: Bilateral rhonchi; Negative Wheezes, Rales
Cardiac: Regular Rhythm and S1/S2
GI: Soft, Nontender and Nondistended
Musculoskeletal: No Clubbing, No Cyanosis and No Edema. points out to right great toe wound but no signs of infection there.
Neuro: Awake, Alert and Disoriented, left hemiparesis, decreased sensory in the left.
Psych: Calm
A/P:
Acute CVA:
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
Aspirin per oral
Resume anticoagulation once cleared by neurology
Statins to continue
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 Not sure if from ID perspective would be required but will wait for ID evaluation
Neurology consult appreciated
No seizures on EEG
No thrombus or PFO on transthoracic echocardiogram
Confirm right stroke on MRI of the brain
No LVO on CTA of head and neck
LDL 101
Hemoglobin A1c 5.8
PT OT and speech pathology eval
IV fluids low rate.
Febrile illness due to bacteremia:
Blood cultures with Enterococcus species
Will continue IV ampicillin-started yesterday
ID consult-discussed with ID via [place] text yesterday
Check a chest x-ray and no acute chest pathology
Check UA and unremarkable
Check COVID-19 and negative
Check influenza
Acute metabolic encephalopathy due to stroke:
Monitor mental status and behavior
Continue thiamine
Dysphagia due to stroke:
Speech therapy recommended to keep n.p.o. but allow meds.
Plan for VSE on Monday
Discussed with family about possibly starting NG tube for feedings and they want to hold off--> they will let me know if they are ready.
Meningioma, right frontal:
Neurosurgery outpatient eval
EMEKA:
Resolved
Urinary catheter
Sarcoidosis:
On his usual oral dose of steroids
Insulin sliding scale while on steroid
Chronic HFrEF:
On his usual oral dose of diuretics
Back to his antiheart failure medications
Monitor volume status
Paroxysmal atrial fibrillation:
Hold anticoagulation for now and resume when cleared by neurology
IV metoprolol as needed if able to tolerate for sustained tachycardia
Continue cardiac monitoring
COPD:
Monitor respiratory status closely
Bronchodilators as needed
obtained cxr and no acute pathology but some residual chronic changes
History ventricular tachycardia:
Medtronic ICD placement since 2022
Alcohol use disorder:
- stays that he is not drinking anymore as much as he was before.
-MSA protocol.
-Monitor closely
Thrombocytopenia:
Monitor trend
Hypertension
Hyperlipidemia
History of PE
Nonobstructive CAD
History of syncope due to VT status post shock in the past
Former tobacco use
DVT prophylaxis:
Heparin SQ
CODE STATUS:
Full code
Total time spent on today's encounter was 52 minutes which included time spent in counseling the patient/family regarding diagnosis and treatment plan as listed above, goals of care, and symptom management. Case was discussed with nursing staff,
specialists, and care coordinators/case management. All labs and imaging personally reviewed by me. Remainder the time spent in detailed review of previous records, lab data, imaging, and other medical provider documentation.
Anticipated Discharge: > 48 hours
Subjective/Interval History
-
Date of Service: June 16, 2024
Patient with left hemiparesis. More alert. Afebrile.
Objective Data
-
Labs:
Laboratory Results
06/16/24
05:31
WBC 12.6 H
Hgb 11.5 L
Hct 37.4 L
Plt Count 160
Sodium 140
Potassium 4.0
Chloride 105
Carbon Dioxide 26
BUN 30 H
Creatinine 1.2
Glucose 101 H
Calcium 7.9 L
Vital Signs:
Vital Signs
Temp Pulse Resp BP Pulse Ox
98.2 F 63 20 118/75 96
06/16/24 07:10 06/16/24 08:21 06/16/24 08:21 06/16/24 04:00 06/16/24 08:21
I&O
06/15/24 06/16/24 06/17/24
06:59 06:59 06:59
Intake Total 1000 / 1000 1476 / 1476
Output Total 500 / 500 750 / 750
Balance 500 / 500 726 / 726
--- NOTE | 2024-06-16 11:17 | CON.ID ---
Consultation
-
Date/Time Consultation Requested: 1
Chief Complaint / Past History
Chief Complaint
left side weakness
History of Present Illness
Mr Mariano is a 74 year old male with history of sarcoidosis, CHF, COPD who presented here 06/11 for sudden onset of L sided hemiparesis, last known well time was the previous night at 10 pm, work up 3:30 with dysarthria, malsie, left sided
weakness; presented to the ER around 7:50 AM same day. No fevers, chills, chest pain, shortness of breath, nausea, vomiting or diarrhea or abdominal pain.
He has a chronic wound of the right great toe which he follows with podaitry for, reports no history of infection of the toe, there is some surrounding callous but no erythema, no probe to bone, no drainage.
reports that he is overdue for colonoscopy.
Since arrival here he was febrile for the first 48 hours to a tmax of 102.3 since resolved, bp stable, HRs normal, wbc initially 11.6 today 12.6, hgb 11.5, plt 160, L shift has been present throughout his stay, cr 1.2, a1c 5.8, t bili 0.7, ast 19,
alt 26, alk phos 60, UA no pyuria, covid ag neg, 06/11 CT head: no acute abnormality, CTA: suspected meningioma, 06/11 brain mri: R MCA infarct, 06/14 CT head: MCA infarct, also right temporoparietal infarct, blood cultures x2 were done first 06/14
and revealed enterococcus in two sets over 10 hours apart, ua 06/14 no pyuria, 06/11 TTE: good view of the valves reported without vegetations, currently on ampicillin, ID is consulted for assistance with management.
Past History
Additional Past Medical History:
CAD (Nonocclusive coronary artery disease by catheterization on 01/12/2015. ), CHF, COPD, HTN, Hypercholesterolemia
A-fib, sarcoidosis, CHF, COPD, VTE in the past, NITA
COPD
former smoker
sarcoidosis
DVT/PE-patient on Xarelto
daily alcohol use
Paroxysmal A-fib
HTN
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
CHF/ nonischemic cardiomyopathy, EF 35-40% April 2023
nonocclusive CAD December 2014 cardiac cath
Mitral regurgitation, moderate to severe by echo in 12/2014.
GERD
HLD
basal cell skin CA
OA right knee
Additional Past Surgical History:
Right knee arthroscopy, partial medial meniscectomy, medial femoral chondroplasty and Mediastinoscopy
Allergy History:
No Known Allergies Allergy (Verified 06/11/24 15:08)
Medications Reviewed: Yes
Social History
Tobacco: Former Smoker
Alcohol: Daily
Drug: None
Family History
Family History: Not Pertinent
Review of Systems
Review of Systems
General: Fever
All systems: All other systems were reviewed and were negative
Vital Signs
Temp Pulse Resp BP Pulse Ox
98.2 F 63 20 118/75 96
06/16/24 07:10 06/16/24 08:21 06/16/24 08:21 06/16/24 04:00 06/16/24 08:21
Physical Exam
Physical Exam
Constitutional: No Acute Distress
Cardiovascular: Regular Rate and S1/S2; Negative Murmur or Rub
Pulmonary: Clear and Symmetric; Negative Wheezes, Rales or Rhonchi
Gastrointestinal: Soft, Non Tender, Non Distended and Normal Bowel Sounds
Extremities: Negative Splinter Hemorrhage or [place] Lesions
Skin: Warm and Dry; Negative Rash or Jaundice
Wound: Other (right great toe wound, surrounding callous but no erythema, no probe to bone, no drainage )
Lines: PIV (no erythema warmth, tenderness or drainage) and Other (pacemaker)
Lab / Diagnostic Study Results
06/16/24 05:31
06/16/24 05:31
Abs Immat Gran (auto) 0.6 10^3/uL (0-0.05) H 06/16/24 05:31
Absolute Neuts (auto) 11.0 10^3/uL (1.4-6.5) H 06/16/24 05:31
Absolute Lymphs (auto) 0.6 10^3/uL (1.2-3.4) L 06/16/24 05:31
Absolute Monos (auto) 0.4 10^3/uL (0.1-0.6) 06/16/24 05:31
Absolute Basos (auto) 0.0 10^3/uL (0-0.2) 06/16/24 05:31
Immature Gran % 4.5 % (0-0.5) H 06/16/24 05:31
Neutrophils % 87.3 % (42.2-75.2) H 06/16/24 05:31
Lymphocytes % 4.5 % (20.5-51.1) L 06/16/24 05:31
Monocytes % 3.4 % (1.7-9.3) 06/16/24 05:31
Eosinophils % 0.2 % (0-6) 06/16/24 05:31
Basophils % 0.1 % (0-2) 06/16/24 05:31
Microbiology Results
Micro:
06/14/24 09:55 Blood Culture - Preliminary
Blood/Venous Enterococcus species
Gram Stain - Final
06/14/24 20:29 Blood Culture - Preliminary
Blood/Venous Positive culture in progress
Gram Stain - Preliminary
06/14/24 15:34 Influenza Types A & B (PPEE) - Final
Nasal Swab Negative for Influenza A & B, NAAT
Negative results must be combined with clinical observations
and patient history.
Nucleic Acid Amplification test (NAAT)performed on the
[email or web address] platform.
06/12/24 04:28 MRSA Screen - Final
Nose No Methicillin Resistant Staphylococcus aureus isolated.
Assessment / Plan
Enterococcal Bacteremia
Acute strokes right MCA
Possible Endocarditis
Sarcoidosis
Immunosuppression on high dose steroids and PJP prophyalxis
Pacemaker
- repeat blood cultures x2
- 06/14 blood cultures x2 from two different draws both with enterococcus
- ua no pyuria, urine is not the source
- CT a/p with IV and oral contrast to assess for GI lesions
- eventual egd/colonoscopy recommended outpatient
- ideally SARINA would be done to assess for large vegetations that might require valve replacement; however it is unclear to me if he would be a surgical candidate given recent stroke, could consider cardiology evaluation in the AM
- increase ampicillin to 2 gm IV q4 hours
- add vancomycin for now while sensi pending
- continue bactrim (PJP ppx)
--- NOTE | 2024-06-16 12:58 | PHA.VAN.IN ---
Addendum entered and electronically signed by Mickie Osborne [facility] 06/16/24 13:04:
Indication for Bacteremia
Original Note:
Assessment
- Assessment
Renal Function: Appears similar to baseline (SCr baseline 1.1-1.2)
Maximum Temperature: 102.3 06/14
Concomitant Antimicrobials: ampicillin, smx/tmp for PJP prophylaxis
AUC Dosing Plan
- Dosing Variables
Dosing Weight (kg): 97
Dosing CrCl (ml/min): 62
Vd coefficient (L/kg): 0.6
- Empiric Dosing
Initial / Loading Dose: 06/16/24 2000 mg pending administration
Maintenance Regimen: vanc 1500 mg q24
Estimated AUC (mcg*h/mL): 487
Estimated Peak (mcg*h/mL): 34.9
Estimated Trough (mcg/ml): 10.2
Estimated Half Life (H): 12.4
- Monitoring
No levels ordered at this time: consider in the upcoming days
Pharmacokinetics Vancomycin I
- -
Patient Age: 74
Patient Sex: Male
Vancomycin Day #: 1
Indication: Endocarditis
Requesting Provider: Dr Romero
Pertinent Antimicrobial Allergies:
no known allergies
Height / Weight:
Height 5 ft 8 in
Actual Weight 97.3 kg
Pertinent Past Medical History: chronic immunosuppession, on PJP prophylaxis
- Vital Signs / Lab Results
Temp Pulse Resp BP Pulse Ox
98.1 F 63 20 118/75 96
06/16/24 11:15 06/16/24 08:21 06/16/24 08:21 06/16/24 04:00 06/16/24 08:21
Lab Results - Hematology
06/14/24 06/15/24 06/16/24
04:59 04:39 05:31
WBC 11.3 H 11.5 H 12.6 H
Lab Results - Chemistry
06/14/24 06/15/24 06/16/24
04:59 04:39 05:31
BUN 21 H 26 H 30 H
Creatinine 1.2 1.1 1.2
Estimated Creat Clear 62 68 62
Lab Results - Urine
06/14/24
15:57
Urine Nitrite (Reflex) Negative
Leukocyte Esterase Rfl Negative
Microbiology Results
06/14/24 20:29 Blood Culture - Preliminary
Blood/Venous Enterococcus faecalis
Gram Stain - Final
06/14/24 09:55 Blood Culture - Preliminary
Blood/Venous Enterococcus faecalis
Gram Stain - Final
06/14/24 15:34 Influenza Types A & B (PEPE) - Final
Nasal Swab Negative for Influenza A & B, NAAT
Negative results must be combined with clinical observations
and patient history.
Nucleic Acid Amplification test (NAAT)performed on the
[employer] platform.
[2024-06-16] MEDS: VANCOCIN 540 MG IV (13:36)
[2024-06-16] MEDS: LIPITOR 80 MG PO (18:11)
[2024-06-16] MEDS: LR IV (22:18)
[2024-06-16] MEDS: LR 1000 IV (22:18)
[2024-06-17] VITALS (12 sets, daily range): BP systolic 96–149; BP diastolic 60–93; BMI 32.9
--- NOTE | 2024-06-17 01:11 | PTCARENOTE ---
Pt NIHSS improving at shift assessment. 2 RN at bedside Pt was able to move left foot when asked, with some delay. Pt again having some confusion about time in middle of night. Pt stating 'I know its 5 don't try that with me' reorientation given
unsuccessfully. Emotional support given, after some time Pt appeared to be able to get some rest, respirations even and unlabored spo2 95% 4L nc.
[2024-06-17] MEDS: AMPICILLIN 108 MG IV ×6 (02:53→21:44)
[2024-06-17 04:54] LABS: % Basophils 0.2 % (0-2); % Eosinophils 0.2 % (0-6); % Immature Granulocytes 4.4 % (0-0.5); % Lymphocytes 5.3 % (20.5-51.1); % Monocytes 3.2 % (1.7-9.3); % Neutrophils 86.7 % (42.2-75.2); Absolute Immature Granulocytes 0.6 10^3/uL (0-0.05); Absolute Lymphocytes 0.7 10^3/uL (1.2-3.4); Absolute Monocytes 0.4 10^3/uL (0.1-0.6); Absolute Neutrophils 11.5 10^3/uL (1.4-6.5); Hematocrit 38.1 % (39.0-52.0); Mean Corp Hgb Conc. 31.5 g/dL (33.0-37.0); Mean Corpuscular Hgb 29.6 pg (27.0-31.0); Mean Corpuscular Volume 94.1 fL (80.0-94.0); Mean Platelet Volume 11.6 fL (7.4-10.4); Nucleated Red Blood Cells % 0 % (-); Platelet Count 177 10^3/uL (130-400); Red Blood Cell Count 4.05 10^6/uL (4.70-6.10); Red Cell Dist. Width 15.7 % (11.5-14.5); White Blood Cell Count 13.3 10^3/uL (4.8-10.8)
[2024-06-17] MEDS: VANCOCIN 530 MG IV (05:03)
[2024-06-17 05:19] LABS: Blood Urea Nitrogen 32 mg/dl (9-20); Calcium 8.3 mg/dl (8.4-10.2); Carbon Dioxide 26 mmol/L (22-30); Chloride 109 mmol/L (98-107); Estimated Creatinine Clearance 62 ml/min; Glucose 91 mg/dl (70-99); Potassium 4.2 mmol/L (3.5-5.1); Sodium 142 mmol/L (135-145); eGFR > 60.00
[2024-06-17] MEDS: SYMBICORT 80/4.5 MCG INHALER 2 PUFF INH (08:10)
[2024-06-17] MEDS: SPIRIVA RESPIMAT 2.5 MCG 2 PUFF INH (08:10)
[2024-06-17] MEDS: COREG 6.25 MG PO (08:20)
[2024-06-17] MEDS: LASIX 20 MG PO (08:20)
[2024-06-17] MEDS: BACTRIM 400 MG/80 MG 1 TABLET PO (08:20)
[2024-06-17] MEDS: FOLVITE 1 MG PO (08:20)
[2024-06-17] MEDS: PACERONE 200 MG PO (08:20)
[2024-06-17] MEDS: FARXIGA 10 MG PO (08:20)
[2024-06-17] MEDS: PROTONIX 40 MG PO (08:21)
[2024-06-17] MEDS: VITAMIN B1 100 MG PO (08:21)
[2024-06-17] MEDS: DELTASONE 30 MG PO (08:21)
[2024-06-17] MEDS: ALDACTONE 12.5 MG PO (08:21)
[2024-06-17] MEDS: ENTRESTO 24 MG/26 MG 1 TAB PO (08:21)
[2024-06-17] MEDS: HEPARIN 5000 UNITS SC ×2 (08:22→21:44)
[2024-06-17] MEDS: LOW STRENGTH ASPIRIN 81 MG PO (08:22)
--- NOTE | 2024-06-17 10:22 | W.PN.ID1 ---
Date of Service
Date of Service: June 17, 2024
Today's Communication
- ideally SARINA would be done to assess for large vegetations that might require valve replacement; however it is unclear to me if he would be a surgical candidate given recent stroke, consider cardiology evaluation
- c/w ampicillin to 2 gm IV q4 hours
- start ceftriaxone, stop vanc
- continue bactrim (PJP ppx)
Assessment / Plan
Enterococcal Bacteremia
Acute strokes right MCA
Possible Endocarditis
Sarcoidosis
Immunosuppression on high dose steroids and PJP prophyalxis
Pacemaker
- 06/16 blood cultures x2 in progress no growth to date
- 06/14 blood cultures x2 from two different draws both with enterococcus
- ua no pyuria, urine is not the source
- CT a/p with IV and oral contrast to assess for GI lesions - when feasible
- eventual egd/colonoscopy recommended outpatient
- ideally SARINA would be done to assess for large vegetations that might require valve replacement; however it is unclear to me if he would be a surgical candidate given recent stroke, consider cardiology evaluation
- c/w ampicillin to 2 gm IV q4 hours
- start ceftriaxone, stop vanc
- continue bactrim (PJP ppx)
Chief Complaint
-: Bacteremia and Other (possible endocarditis)
Subjective / Review of Systems
afebrile
bp stable
some confusion overnight
for NGT placement
Vital Signs / Physical Exam
Vital Signs
Vital Signs
Temp Pulse Resp BP Pulse Ox
98.7 F 69 14 121/78 93
06/17/24 07:22 06/17/24 08:10 06/17/24 08:10 06/17/24 06:00 06/17/24 08:10
Physical Exam
Constitutional: No Acute Distress and Chronically Ill
Cardiovascular: Regular Rate and S1/S2; Negative Murmur or Rub
Pulmonary: Clear and Symmetric; Negative Wheezes or Rales
Gastrointestinal: Soft, Non Tender, Non Distended and Normal Bowel Sounds
Skin: Warm and Dry; Negative Rash or Jaundice
Objective Data
Lab Data
Lab Results
06/17/24 04:06
06/17/24 04:06
Estimated Creat Clear 62 ml/min 06/17/24 04:06
Total Bilirubin 0.7 mg/dl (0.2-1.3) 06/11/24 08:30
AST 19 U/L (17-59) 06/11/24 08:30
ALT 26 U/L (0-50) 06/11/24 08:30
Alkaline Phosphatase 60 U/L (38-126) 06/11/24 08:30
Most recent labs reviewed.
Blood Culture Preliminary 06/16/24-1249
Enterococcus faecalis
Organism 1 Enterococcus faecalis
1. Enterococcus faecalis
M.I.C. RX
--------- ---
Ampicillin <=2 S
Gentamicin Synergy Screen <=500 S
Susceptible result indicates synergy is likely with a cell
wall active agent that is also susceptible
(e.g.ampicillin,penicillin,vancomycin)
Vancomycin 2 S
Micro Results:
06/16/24 15:48 Blood Culture - Pending
Blood/Venous
06/16/24 15:52 Blood Culture - Pending
Blood/Venous
06/14/24 20:29 Blood Culture - Preliminary
Blood/Venous Enterococcus faecalis
Gram Stain - Final
06/14/24 09:55 Blood Culture - Preliminary
Blood/Venous Enterococcus faecalis
Gram Stain - Final
06/14/24 15:34 Influenza Types A & B (PEPE) - Final
Nasal Swab Negative for Influenza A & B, NAAT
Negative results must be combined with clinical observations
and patient history.
Nucleic Acid Amplification test (NAAT)performed on the
[employer] platform.
06/12/24 04:28 MRSA Screen - Final
Nose No Methicillin Resistant Staphylococcus aureus isolated.
Care Review
Plan reviewed with: Physician (Dr Randall - timing of CT scan)
--- NOTE | 2024-06-17 10:28 | CON.CAR ---
Addendum entered and electronically signed by Bismark Navas MD 06/17/24 15:42:
I saw and examined the patient.
The Biological Engineer's note was reviewed and I agree with the note.
Comment:
GEN: No distress, awake, Ox3
HEENT: supple, anicteric, mmm
LUNGS: CTA, no wheezes/rales
CV: Reg, S1/S2, 1/6 syst LSB, no gallop
ABD: soft, BS+, NT/ND
EXT: No edema
NEURO: L sided weakness
SKIN: No rash
Plan:
74-year-old male with past medical history of COPD, pulmonary embolism, sarcoidosis and ICD secondary to ventricular tachycardia with nonischemic myopathy presents with new acute stroke and now Enterococcus bacteremia. He was found 1 week ago with
left-sided weakness but was not a candidate for thrombolytics due to chronic Xarelto. He then developed fevers and blood cultures revealed Enterococcus bacteremia. Repeat head CT revealed new right SUE territory stroke. We were asked to evaluate
the patient for transesophageal echo.
The source of his bacteremia remains unclear. He also remains on 3 L of oxygen at this time and is awaiting swallowing study.
I reviewed his transthoracic echo from 1 week ago which has no clear significant regurgitation or endovascular infection. I discussed with infectious disease and his that at this point I would hold off on transesophageal echo for now. We will
start with a repeat transthoracic echo to reevaluate his valves. Clearly at this time he is not a candidate for open heart surgery.
Would consider SARINA if it would change the length of time of antibiotics per infectious disease.
Agree with continue surveillance cultures.
Weight is overall up. Creatinine is improved. Back on Lasix 20 mg daily. May need dose of IV Lasix if weight continues to climb.
Original Note:
Consultation
Consultation Request
Date/Time Consultation Requested: 06/17/24 at 0802
Date/Time Consultation Performed: 06/17/24 at 1133
Requesting Provider: Dr. Randall
Performing Provider: Dr. Navas
Reason for Consultation: Evaluation for possible SARINA
Medical History
-
History of Present Illness:
Patient came to [facility] last week with CVA and cardiology is now consulted for consideration of SARINA due to bacteremia. Patient's provides bulk of HPI and she says that the week before Thanksgiving the patient had a fever with temp to 103 degrees
Fahrenheit, but no other symptoms. Fever resolved and then recurred and this happened several times over last few weeks and so he saw his PCP, but his only symptom was fatigue. Then patient awoke last Monday morning around 3 AM and was
uncomfortable and so his gave him some Tylenol. Then around 629 patient's awoke to the sound of patient trying to get out of bed and he did not look well and then she noticed left sided weakness and called 911. Patient was a pre-hospital
stroke alert, but was not a candidate for TNK due to chronic Xarelto. MRI then revealed scattered foci in the right MCA distribution and patient was treated as a CVA. Patient started to have more of the fevers he was experiencing prior to admission
and blood cultures grew Enterococcus. Repeat Ct head 06/14/24 showed new right SUE territory CVA. ID is now seeing the patient and recommended consideration of a SARINA.
PMH:
COPD
h/o PE 1983, 1999
Chronic Xarelto OAC
Paroxysmal Afib
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
h/o syncope due to VT s/p shock x1 04/24/23
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
s/p Medtronic DC ICD placement 04/26/2023
Nonischemic Cardiomyopathy, EF 35-40% by echo 03/2023
Hypertension
Hyperlipidemia
PVCs
Morbid obesity
Previous daily ETOH use, but less now according to
Past Medical History
Past Medical History: Other (in HPI)
Past Surgical History: Cardiac (s/p medtronic DC ICD 04/2023), Orthopedic (Left knee arthroscopy 2010, Right knee surgery 2017) and Other (Basal cell left ear 2020. Cataract extraction 2021. Melanoma excision right wrist 2023)
Social History
Tobacco: Former Smoker
Alcohol: Occasional (1 shot of whiskey 4 times a week)
Drug: None
Personal:
Living: With Family
Employment: Retired
Family History
Family History: CAD, Cancer, Hypertension and Other (pacemaker in father)
Allergies / Home Medications
Allergy/AdvReac Type Severity Reaction Status Date / Time
No Known Allergies Allergy Verified 06/11/24 15:08
�Medication �Instructions �Recorded �Confirmed �Type
atorvastatin 10 mg tablet 10 mg PO DAILY High Cholesterol 04/24/23 06/11/24 History
rivaroxaban 20 mg tablet (Xarelto) 20 mg PO HS Blood Clot 04/24/23 06/11/24 History
Prevention/Tx
vitamin B complex 1 tab PO DAILY Supplement 04/24/23 06/11/24 History
empagliflozin 10 mg tablet 10 mg PO DAILY HF #30 tabs 04/27/23 06/11/24 Rx
(Jardiance)
aflibercept 8 mg/0.07 mL 8 mg intravitreal Q4W Eye Condition 01/20/24 06/11/24 History
intravitreal solution for
injection (Eylea HD)
amiodarone 200 mg tablet (Pacerone) 200 mg PO DAILY VTach 01/20/24 06/11/24 History
peg 400-propylene glycol (PF) 0.4 1 drp BOTH EYES Q6HPRN PRN dry eyes 01/20/24 06/11/24 History
%-0.3 % eye drops in a dropperette
(Systane (PF))
sacubitril 24 mg-valsartan 26 mg 1 tab PO BID Heart Failure 01/20/24 06/11/24 History
tablet (Entresto)
spironolactone 25 mg tablet 12.5 mg PO DAILY Blood Pressure 01/20/24 06/11/24 History
sulfamethoxazole 400 1 tab PO DAILY Infection 01/20/24 06/11/24 History
mg-trimethoprim 80 mg tablet
(Bactrim)
therapeutic multivitamin 1 tab PO DAILY Supplement 01/20/24 06/11/24 History
acetaminophen 325 mg tablet 650 mg PO DAILYPRN PRN fever 06/11/24 06/11/24 History
(Tylenol)
carvedilol 6.25 mg tablet 6.25 mg PO BID Blood Pressure 06/11/24 06/11/24 History
fluticasone fur. 100 mcg-umeclid 1 inh inhalation R DAILY 06/11/24 06/11/24 History
62.5 mcg-vilant 25 mcg Lung/Breathing Issues
inhalat.powder (Trelegy Ellipta)
furosemide 20 mg tablet 20 mg PO DAILY Fluid 06/11/24 06/11/24 History
Retention/Swelling
pantoprazole 40 mg tablet,delayed 40 mg PO DAILY Gastrointestinal 06/11/24 06/11/24 History
release Issue
prednisone 20 mg tablet 30 mg PO DAILY ANTI-INFLAMMATION 06/11/24 06/11/24 History
tiotropium bromide 2.5 2 puff inhalation R DAILY 06/11/24 06/11/24 History
mcg/actuation mist for inhalation Lung/Breathing Issues
(Spiriva Respimat)
Review of Systems
-
History Source: Patient and Family (HPI comes from )
All other systems: Negative unless noted
Physical Exam
Vital Signs
Temp Pulse Resp BP Pulse Ox
98.7 F 69 14 121/78 93
06/17/24 07:22 06/17/24 08:10 06/17/24 08:10 06/17/24 06:00 06/17/24 08:10
GEN: NAD. Awakens to voices in room, but not oriented
HEENT: EOMI, MMM
LUNGS: Oxygen at 4 L NC. No audible wheeze
CV: Reg, S1/S2, no murmur
ABD: soft, BS+, NT, ND
EXT: No clubbing, cyanosis, lesions or edema B/L
NEURO: Gross non-focal
SKIN: Warm, dry and pink. No rash
Lab Results
06/17/24 04:06
06/17/24 04:06
Impression / Plan
-
Primary Inspector Plug Seam: Dr. Fam
Dr. Ced Mora: ([facility]), phone [phone]
Impression:
Admitted with left sided weakness and possible CVA 06/11/24
Acute right MCA territory CVA with multiple, small scattered foci by MRI
additional area of new CVA in the right SUE territory by CT head 06/14/24
TME
Dysphagia
EMEKA
Enterococcus bacteremia
Possible endocarditis
COPD
h/o PE 1999
Chronic Xarelto OAC
Paroxysmal Afib
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
h/o syncope due to VT s/p shock x1 04/24/23
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
s/p Medtronic DC ICD placement 04/26/2023
Nonischemic Cardiomyopathy, EF 35-40% by echo 03/2023
Hypertension
Hyperlipidemia
PVCs
Morbid obesity
Previous daily ETOH use, but less now according to
Cardiac cath 04/25/2023: LM: Luminal Irregularities, Ramus: Normal, LCx: normal, RCA: LI, LVEF: 30% global HK and posterior basal HK. 1+MR
Cardiac MRI 04/26/2023: Severe thickening and transmural enhancement in the inferolateral and inferior whitten of the left ventricle c/w previous PR. Focal subendocardial enhancement 50 to 75% of myocardial thickness. Global LV HK.
PET scan-Tyrell Taylor-05/16/23-increased metabolic activity at the left cardiac border/left ventricle, indicating active disease-sarcoidosis, which correlates with a cardiac MRI findings, hilar and mediastinal lymphadenopathy with increased
metabolic activity indicates active disease as well, cardiac SUV ranging 2.8-3/3, mediastinal, hilar SUV ranging 2.3-3.16 and right hilar lymph node, SUV 3.06, no abnormal pulmonary uptake
PET scan revealed myocardial involvement and mild hilar involvement but no pulmonary parenchymal involvement of sarcoidosis.
ECHO 09/2022: EF 45-50%, mild concentric LVH, focal calcification of anterior mitral valve leaflet, mild MR, trace TR, PAP 39 mmHg
ECHO 04/25/23: EF 35 to 40%, basal to mid inferior and inferolateral akinesis, mild global hypokinesis, stage I diastolic dysfunction, moderate eccentric MR, mild TR, PAP 26 to 31 mmHg, mildly dilated aortic root
ECHO 01/22/24: EF visually 35 to 40%, EF 40 to 45% by Dunbar's, inferior wall hypokinetic and basal inferolateral wall akinetic, mild LVH, ICD noted, mild to moderate MR, trace TR, PAP 30 to 35 mmHg, no significant change compared to prior echo
Echo 06/11/24: EF 50%, mild to mod conc LVH, stage I diastolic dysfunction, normal RV size and function, mild MR, mild TR
Plan:
-Patient came to [facility] last week with CVA and cardiology is now consulted for consideration of SARINA due to bacteremia. Patient's provides bulk of HPI and she says that [facility] had a fever with temp to 103 degrees
Fahrenheit, but no other symptoms. Fever resolved and then recurred and this happened several times over last few weeks and so he saw his PCP, but his only symptom was fatigue. Then patient awoke last Monday morning around 3 AM and was
uncomfortable and so his gave him some Tylenol. Then around 629 patient's awoke to the sound of patient trying to get out of bed and he did not look well and then she noticed left sided weakness and called 911. Patient was a pre-hospital
stroke alert, but was not a candidate for TNK due to chronic Xarelto. MRI then revealed scattered foci in the right MCA distribution and patient was treated as a CVA. Patient started to have more of the fevers he was experiencing prior to admission
and blood cultures grew Enterococcus. Repeat Ct head 06/14/24 showed new right SUE territory CVA. ID is now seeing the patient and recommended consideration of a SARINA.
-Talked with patient's at bedside and reviewed his symptoms leading up to admission and hospital course thus far including the new right SUE infarcts seen on follow up CT 06/14/24. Reviewed blood cultures results and concern for possible
endocarditis.
-Reviewed SARINA procedure with patient's and the need for sedation. Patient continues with TME. Will check repeat TTE in AM and pending results could consider SARINA if this would change the duration of antibiotics, but doubt that patient would be a
candidate for valve surgery.
-For now patient being managed with ampicillin and ceftriaxone.
-Continues with TME. Xarelto has not been restarted. ECG and tele reviewed by me look like SR. Pending results of another Ct scheduled for 06/18/24 the Xarelto might be restarted.
-EF 50% by echo and was previously 35-40% at last echo 12/2023 in the setting of severe COVID illness.
-ECG and tele looks like SR. Outpatient dose of amiodarone 200 mg daily has been continued and QTc 477 ms by ECG 06/11/24.
-Cre 1.5 on admission and improved to 1.2 today. Outpatient dose of Lasix 20 mg daily has been continued. Weight is up 4 lbs from admission. Patient is NPO and receiving IVFs. VSE ordered and family is now agreeable to NGT for feeding.
--- NOTE | 2024-06-17 10:38 | CM ---
Patient seen at bedside with
On IV abx, 02 4L
Video swallow later today.
Abd US ordered for tomorrow
PT rec Acute Rehab vs. SNF
Spoke with heather Burch
Need PMR consult
Spoke with Sakshi Burch stated to add referral in careport
Marcin referral added
PLAN: Acute Rehab vs. SNF, CM to follow hospital progression
[2024-06-17] MEDS: STERILE WATER FOR INJECTION 20 ML IV ×2 (14:00→21:44)
--- NOTE | 2024-06-17 14:10 | W.PN.HOSP.TC ---
Today's Communication/Plan
-
NG tube and CT abd
VSE in AM
CT head in AM
Telemetry
Assessment / Plan
Assessment / Plan
74yo M with PMhx of HTN, Afib, HLD, GERD, COPD, HFmrEF s/p ICD, chronic steroids, came with sudden onset of L hemiparesis, found acute R MCA embolic stroke
A/P:
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
#R frontal meningioma 1.3cm
ASA, statin
Repeat MRI in 1 year, outpatient neuroSx consult
Xarelto stopped to avoid early bleeding transformation - advised to restart on 06/18/[address] head
Neurology [id number] 5.8%
LDL 101
PT/OT and YARN HANDLER
#Bacteremia, concern for endocarditis
Enterococcus faecalis (ampecillin-sensitive) bacteremia
Possible endocarditis
Cardiology evaluated: repeat TTE since high risk for SARINA
ID consult - cont Abx, repeat Cx, CT abd/pelvis to look for the source
#Dysphagia
VSE
NG tube
YARN HANDLER
#Acute metabolic encephalopathy
2/2 CVA
#EMEKA
resolved
follow Cr
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
#Afib, paroxysmal
#COPD not in exacerbation
#Sarcoidosis on chronic steroids
#Alcohol use d/o
cont home meds
THiamine/folate
Hold Xarelto as per neuro
#Mild thrombocytopenia, reactive
resolved
DVT ppx on hep
Full code
I have spent at least 57min reviewing chart, test reuslts, communication with consultants and direct patient care
Anticipated Discharge: > 48 hours
Subjective/Interval History
-
Date of Service: June 17, 2024
Objective Data
-
Labs:
Laboratory Results
06/17/24
04:06
WBC 13.3 H
Hgb 12.0 L
Hct 38.1 L
Plt Count 177
Sodium 142
Potassium 4.2
Chloride 109 H
Carbon Dioxide 26
BUN 32 H
Creatinine 1.2
Glucose 91
Calcium 8.3 L
Vital Signs:
Vital Signs
Temp Pulse Resp BP Pulse Ox
98.6 F 69 14 121/78 93
06/17/24 11:14 06/17/24 08:10 06/17/24 08:10 06/17/24 06:00 06/17/24 08:10
I&O
06/16/24 06/17/24 06/18/24
06:59 06:59 06:59
Intake Total 1476 / 1476 1970 / 1970
Output Total 750 / 750 1100 / 1100
Balance 726 / 726 871 / 871
Review of Systems
-
Unable to obtain full review of systems at this time due to: Acuity
History Source: Patient
Physical Exam
-
General: No Apparent Distress
HEENT: Normocephalic
Cardiac: Regular Rhythm
GI: Soft and Nontender
Musculoskeletal: No Clubbing, No Cyanosis and No Edema
Neuro: Awake, Alert and No Motor Deficits (L hemiparesis, dysarthria)
Psych: Calm and Confused
[2024-06-17] MEDS: ROCEPHIN 2000 MG IV ×2 (14:30→21:44)
[2024-06-17] MEDS: OMNIPAQUE 50 ML PO (17:12)
[2024-06-17] MEDS: LIPITOR PO (17:52)
--- NOTE | 2024-06-17 19:46 | PTCARENOTE ---
day shift mote. see nursing worklist. pt more drowsy today but oriented and awakens to voice. ng tube inserted for instillation of ct prep. xray done to confirm placement. ct prep given and ct scheduled for 8 pm. pt incont of 600 mls urine in condom
cath. bladder scanned per order for 1060 mls. order obtained for castillo cath. 16 upper sorbian castillo cath inserted and drained 1850 mls. at bedside throughou the day.
[2024-06-17] MEDS: ENTRESTO 24 MG/26 MG PO (21:37)
[2024-06-17] MEDS: VITAMIN B1 PO (21:38)
[2024-06-17] MEDS: COREG PO (21:38)
[2024-06-17] MEDS: SYMBICORT 80/4.5 MCG INHALER INH (21:42)
[2024-06-17 21:57] LABS: Urine Bilirubin Negative (Negative); Urine Character Slightly Cloudy (Clear); Urine Ketone Negative (Negative); Urine Nitrite Negative (Negative)
--- NOTE | 2024-06-17 22:24 | PTCARENOTE ---
Received pt at change of shift. NIH remains at 18. Pt drowsy but arousable. Orientedx3. Slow, slurred speech. NGT in right nare, clamped. ABD CT completed. Marroquin draining pink urine. Sample sent to lab. [facility] notified of change in urine.
[2024-06-17 22:25] LABS: Urine Albumin 1+ (Neg - Trace); Urine Glucose 1+ (Negative); Urine Leukocyte Trace (Negative); Urine Occult Blood 4+ (Negative); Urine Urobilinogen 2+ (Neg - 1+)
[2024-06-17 22:26] LABS: Urine Red Blood Cell >100 /HPF (0-2); Urine Squamous Cell None seen /LPF (Few)
[2024-06-17 22:30] LABS: Urine Color Pink
--- NOTE | 2024-06-17 22:41 | W.PN.UPDATE ---
Update Note
Progress Note Update
abnormal Abd/PLV CT result received
- Pulmonary embolism within the visualized right main pulmonary artery. Cardiology and Neurology personal care worker updated.
Currently, Xarelto on hold, pending to restart on 06/18/[address] head.
- Stranding of the fat surrounding the gallbladder, raising concern for acute cholecystitis/ Two focal splenic infarcts. Splenomegaly. surgery consult was placed.
-Per nursing staff, patient noted with hematuria that increased gradually during the night. Urology consult was placed and will continue monitoring h&h.
-Will keep the patient IMU level for close observation.
[2024-06-18] VITALS (11 sets, daily range): BP systolic 105–141; BP diastolic 65–87; BMI 31.7
[2024-06-18] MEDS: AMPICILLIN 108 MG IV ×6 (02:24→23:07)
[2024-06-18 06:43] LABS: % Basophils 0.1 % (0-2); % Eosinophils 0.6 % (0-6); % Immature Granulocytes 4.7 % (0-0.5); % Lymphocytes 5.5 % (20.5-51.1); % Monocytes 3.6 % (1.7-9.3); % Neutrophils 85.5 % (42.2-75.2); Absolute Eosinophils 0.1 10^3/uL (0-0.7); Absolute Immature Granulocytes 0.5 10^3/uL (0-0.05); Absolute Lymphocytes 0.6 10^3/uL (1.2-3.4); Absolute Monocytes 0.4 10^3/uL (0.1-0.6); Absolute Neutrophils 8.5 10^3/uL (1.4-6.5); Hematocrit 32.6 % (39.0-52.0); Hemoglobin 10.4 g/dL (13.0-18.0); Mean Corp Hgb Conc. 31.9 g/dL (33.0-37.0); Mean Corpuscular Hgb 30.4 pg (27.0-31.0); Mean Corpuscular Volume 95.3 fL (80.0-94.0); Mean Platelet Volume 11.9 fL (7.4-10.4); Nucleated Red Blood Cells % 0 % (-); Platelet Count 128 10^3/uL (130-400); Red Blood Cell Count 3.42 10^6/uL (4.70-6.10); Red Cell Dist. Width 15.9 % (11.5-14.5)
[2024-06-18 07:00] LABS: ALT (SGPT) 41 U/L (0-50); AST (SGOT) 35 U/L (17-59); Albumin 2.8 g/dl (3.5-5.0); Alkaline Phosphatase 56 U/L (38-126); Blood Urea Nitrogen 26 mg/dl (9-20); Carbon Dioxide 26 mmol/L (22-30); Chloride 110 mmol/L (98-107); Estimated Creatinine Clearance 67 ml/min; Glucose 83 mg/dl (70-99); Potassium 3.8 mmol/L (3.5-5.1); Sodium 143 mmol/L (135-145); Total Bilirubin 0.8 mg/dl (0.2-1.3); eGFR > 60.00
[2024-06-18] MEDS: SYMBICORT 80/4.5 MCG INHALER 2 PUFF INH ×2 (07:44→19:22)
[2024-06-18] MEDS: SPIRIVA RESPIMAT 2.5 MCG 2 PUFF INH (07:44)
--- NOTE | 2024-06-18 07:53 | PTCARENOTE ---
Assumed care of patient this AM. Dr. Randall to room. Updated patient and of CT results. Patient NPO for US of abdomen. NG tube to right nare clamped as per MD order. VS stable. SR with PVC's on monitor.
--- NOTE | 2024-06-18 09:39 | W.PN.CARDCBS ---
Today's Communication / Plan
-
Result from CT head pending, resume oral anticoagulation when able
Antibiotic per infectious disease
Device interrogation
Monitor weight, intake and outputs may require additional IV diuresis
Impression / Plan
-
Primary Nuclear Equipment Design Engineer: Dr. Fam
Dr. Ced Mora: ([facility]), phone [phone]
Impression:
Admitted with left sided weakness and possible CVA 06/11/24
Acute right MCA territory CVA with multiple, small scattered foci by MRI
additional area of new CVA in the right SUE territory by CT head 06/14/24
Pulmonary Embolus, distal right PA
seen on CT AB/Pel w/ IV contrast
TME
Dysphagia
EMEKA
Enterococcus bacteremia
Possible endocarditis
COPD
h/o PE 1999
Chronic Xarelto OAC
Paroxysmal Afib
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
h/o syncope due to VT s/p shock x1 04/24/23
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
s/p Medtronic DC ICD placement 04/26/2023
Nonischemic Cardiomyopathy, EF 35-40% by echo 03/2023
Hypertension
Hyperlipidemia
PVCs
Morbid obesity
Previous daily ETOH use, but less now according to
Cardiac cath 04/25/2023: LM: Luminal Irregularities, Ramus: Normal, LCx: normal, RCA: LI, LVEF: 30% global HK and posterior basal HK. 1+MR
Cardiac MRI 04/26/2023: Severe thickening and transmural enhancement in the inferolateral and inferior whitten of the left ventricle c/w previous LA. Focal subendocardial enhancement 50 to 75% of myocardial thickness. Global LV HK.
PET scan-Tyrell Taylor-05/16/23-increased metabolic activity at the left cardiac border/left ventricle, indicating active disease-sarcoidosis, which correlates with a cardiac MRI findings, hilar and mediastinal lymphadenopathy with increased
metabolic activity indicates active disease as well, cardiac SUV ranging 2.8-3/3, mediastinal, hilar SUV ranging 2.3-3.16 and right hilar lymph node, SUV 3.06, no abnormal pulmonary uptake
PET scan revealed myocardial involvement and mild hilar involvement but no pulmonary parenchymal involvement of sarcoidosis.
ECHO 09/2022: EF 45-50%, mild concentric LVH, focal calcification of anterior mitral valve leaflet, mild MR, trace TR, PAP 39 mmHg
ECHO 04/25/23: EF 35 to 40%, basal to mid inferior and inferolateral akinesis, mild global hypokinesis, stage I diastolic dysfunction, moderate eccentric MR, mild TR, PAP 26 to 31 mmHg, mildly dilated aortic root
ECHO 01/22/24: EF visually 35 to 40%, EF 40 to 45% by Dunbar's, inferior wall hypokinetic and basal inferolateral wall akinetic, mild LVH, ICD noted, mild to moderate MR, trace TR, PAP 30 to 35 mmHg, no significant change compared to prior echo
Echo 06/11/24: EF 50%, mild to mod conc LVH, stage I diastolic dysfunction, normal RV size and function, mild MR, mild TR
Echo 06/17/2024: Low normal LVEF estimated 50% with basal point lateral akinesis, normal RV, normal atria, mild MR, sclerotic aortic valve, no obvious visitation or change in valvular heart disease for technically difficult study.
Plan:
-Patient came to [facility] last week with CVA and cardiology is now consulted for consideration of SARINA due to bacteremia. Patient's provides bulk of HPI and she says that the week before [facility] the patient had a fever with temp to 103 degrees
Fahrenheit, but no other symptoms. Fever resolved and then recurred and this happened several times over last few weeks and so he saw his PCP, but his only symptom was fatigue. Then patient awoke last Monday morning around 3 AM and was
uncomfortable and so his gave him some Tylenol. Then around 629 patient's awoke to the sound of patient trying to get out of bed and he did not look well and then she noticed left sided weakness and called 911. Patient was a pre-hospital
stroke alert, but was not a candidate for TNK due to chronic Xarelto. MRI then revealed scattered foci in the right MCA distribution and patient was treated as a CVA. Patient started to have more of the fevers he was experiencing prior to admission
and blood cultures grew Enterococcus. Repeat Ct head 06/14/24 showed new right SUE territory CVA. ID is now seeing the patient and recommended consideration of a SARINA.
-Talked with patient's at bedside and reviewed his symptoms leading up to admission and hospital course thus far including the new right SUE infarcts seen on follow up CT 06/14/24. Reviewed blood cultures results and concern for possible
endocarditis.
-Reviewed SARINA procedure with patient's and the need for sedation. Patient continues with TME. Will check repeat TTE in AM and pending results could consider SARINA if this would change the duration of antibiotics, but doubt that patient would be a
candidate for valve surgery.
-For now patient being managed with ampicillin and ceftriaxone, defer to ID
-Concern for PE noted on CT ab/pel; unclear at this time if thrombus vs vegetation given history; patient had been on OAC until admission and placed on SubQ Heparin for DVT PPX
-Continues with TME. Xarelto has not been restarted. ECG and tele reviewed by me look like SR. Pending results of another Ct scheduled for 06/18/24 the Xarelto might be restarted.
-Device interrogation
-EF 50% by echo and was previously 35-40% at last echo 12/2023 in the setting of severe COVID illness.
-ECG and tele looks like SR. Outpatient dose of amiodarone 200 mg daily has been continued and QTc 477 ms by ECG 06/11/24.
-Cre 1.5 on admission and improved to 1.2 06/17 now 1.1. Outpatient dose of Lasix 20 mg daily has been continued. Weight is up 4 lbs from admission. Patient is NPO and receiving IVFs. VSE ordered and family is now agreeable to NGT for feeding.
Progress Note - Nuclear Equipment Design Engineer
Subjective
Date of Service: June 18, 2024
Patient seen and examined. Overnight, update from primary service, patient with concern for PE in right pulmonary artery with additional fat stranding around gallbladder concerning for acute cholecystitis as well as 2 focal splenic infarcts. In
discussion with patient and his at bedside, patient denies any chest pain, palpitations. Patient notes some shortness of breath. Telemetry demonstrates sinus rhythm/a paced V sense, PVCs, V pacing.
Objective
Labs:
06/18/24 05:39
Labs
Hgb 10.4 g/dL (13.0-18.0) L 06/18/24 05:39
Hct 32.6 % (39.0-52.0) L 06/18/24 05:39
Plt Count 128 10^3/uL (130-400) L D 06/18/24 05:39
Sodium 143 mmol/L (135-145) 06/18/24 05:39
Potassium 3.8 mmol/L (3.5-5.1) 06/18/24 05:39
BUN 26 mg/dl (9-20) H 06/18/24 05:39
Creatinine 1.1 mg/dL (0.7-1.3) 06/18/24 05:39
Glucose 83 mg/dl (70-99) 06/18/24 05:39
Vital Signs and I&O:
Vital Signs
Temp Pulse Resp BP Pulse Ox
99.2 F 65 18 107/65 93
06/18/24 07:15 06/18/24 06:00 06/18/24 07:50 06/18/24 06:00 06/18/24 07:50
Vital Signs
Temp Pulse Resp BP Pulse Ox
99.2 F 65 18 107/65 93
06/18/24 07:15 06/18/24 06:00 06/18/24 07:50 06/18/24 06:00 06/18/24 07:50
Intake & Output
06/16/24 06/17/24 06/18/24 06/19/24
06:59 06:59 06:59 06:59
Intake Total 1476 / 1476 1970 / 1970
Output Total 750 / 750 1100 / 1100 1100 / 1100
Balance 726 / 726 871 / 871 -1100 / -1100
Physical Exam
Physical Exam
GEN: No distress, awake, Ox3
HEENT: supple, anicteric, mmm
LUNGS: CTA, no wheezes/rales
CV: Reg, S1/S2, 1/6 syst LSB, no gallop
ABD: soft, BS+, NT/ND
EXT: No edema
NEURO: L sided weakness
SKIN: No rash
--- NOTE | 2024-06-18 10:04 | W.PN.ID1 ---
Date of Service
Date of Service: June 18, 2024
Today's Communication
- c/w ampicillin to 2 gm IV q4 hours
- c/w ceftriaxone 2 gm IV q12hrs
Assessment / Plan
Enterococcal Bacteremia
Acute strokes right MCA
Probable Endocarditis
Splenic infarcts
Sarcoidosis
Immunosuppression on high dose steroids and PJP prophyalxis
Pacemaker
- 06/18 today repeat blood cultures x2; continue to repeat 2 sets q48 hours until persistently clear
- 06/16 blood cultures 1 of 2 sets: enterococcus
- 06/14 blood cultures x2 from two different draws both with enterococcus
- ua no pyuria, urine is not the source
- CT a/p with contrast: concern for PE, possible portal vein thrombus, two focal splenic infarcts, fat stranding seen around gallbladder but normal LFTs,
- eventual egd/colonoscopy recommended outpatient
- plan for serial TTE, appreciate cardiology input
- c/w ampicillin to 2 gm IV q4 hours
- c/w ceftriaxone 2 gm IV q12hrs
- plan at least 6 weeks of IV antibiotics and then likely suppression given pacemaker
- continue bactrim (PJP ppx)
nonbillable note, did not see patient today
Chief Complaint
-: Bacteremia and Other (possible endocarditis)
Subjective / Review of Systems
afebrile
bp stable
nonbillable note, patient out of the room during my rounds
Vital Signs / Physical Exam
Vital Signs
Vital Signs
Temp Pulse Resp BP Pulse Ox
99.2 F 65 18 107/65 93
06/18/24 07:15 06/18/24 06:00 06/18/24 07:50 06/18/24 06:00 06/18/24 07:50
Objective Data
Lab Data
Lab Results
06/18/24 05:39
Estimated Creat Clear 67 ml/min 06/18/24 05:39
Total Bilirubin 0.8 mg/dl (0.2-1.3) 06/18/24 05:39
AST 35 U/L (17-59) 06/18/24 05:39
ALT 41 U/L (0-50) 06/18/24 05:39
Alkaline Phosphatase 56 U/L (38-126) 06/18/24 05:39
Most recent labs reviewed.
Micro Results:
06/16/24 15:48 Blood Culture - Preliminary
Blood/Venous Enterococcus faecalis
Gram Stain - Preliminary
06/16/24 15:52 Blood Culture - Preliminary
Blood/Venous No Growth in 24 hours- Final report to follow
06/14/24 20:29 Blood Culture - Final
Blood/Venous Enterococcus faecalis
Gram Stain - Final
06/14/24 09:55 Blood Culture - Final
Blood/Venous Enterococcus faecalis
Gram Stain - Final
06/14/24 15:34 Influenza Types A & B (PEPE) - Final
Nasal Swab Negative for Influenza A & B, NAAT
Negative results must be combined with clinical observations
and patient history.
Nucleic Acid Amplification test (NAAT)performed on the
[employer] platform.
06/12/24 04:28 MRSA Screen - Final
Nose No Methicillin Resistant Staphylococcus aureus isolated.
--- NOTE | 2024-06-18 10:08 | PTCARENOTE ---
Patient off unit for US of abdomen and LE'S.
[2024-06-18] MEDS: LOW STRENGTH ASPIRIN 81 MG PO (11:07)
[2024-06-18] MEDS: FARXIGA 10 MG PO (11:07)
[2024-06-18] MEDS: LASIX 20 MG PO (11:07)
[2024-06-18] MEDS: FLUSH (NSS) 2 FLUSH IV (11:08)
[2024-06-18] MEDS: ROCEPHIN 2000 MG IV ×2 (11:08→20:53)
[2024-06-18] MEDS: FOLVITE 1 MG PO (11:08)
[2024-06-18] MEDS: HEPARIN 5000 UNITS SC (11:09)
[2024-06-18] MEDS: VITAMIN B1 100 MG PO ×2 (11:15→20:52)
[2024-06-18] MEDS: ALDACTONE 12.5 MG PO (11:16)
[2024-06-18] MEDS: PACERONE 200 MG PO (11:16)
[2024-06-18] MEDS: BACTRIM 400 MG/80 MG 1 TABLET PO (11:16)
[2024-06-18] MEDS: DELTASONE 30 MG PO (11:17)
[2024-06-18] MEDS: PROTONIX 40 MG PO (11:17)
[2024-06-18] MEDS: COREG 6.25 MG PO ×2 (11:17→20:52)
[2024-06-18] MEDS: ENTRESTO 24 MG/26 MG 1 TAB PO ×2 (11:17→20:52)
[2024-06-18] MEDS: STERILE WATER FOR INJECTION 20 ML IV ×2 (11:18→20:53)
--- NOTE | 2024-06-18 11:53 | CON.GS ---
Consultation
-
Requesting Provider: Prakash
Performing Provider: Melyssa
Reason for Consultation: R/o cholecystitis
Medical History
-
Chief Complaint: CVA
History of Present Illness:
Pt admitted fro CVA about a week ago. His reports fevers intermittently for the past month. She reports he has not c/o abd pain. He was evaluated by me at the fluoro suite as he was awaiting VSE. He denies having abd pain, and denies n/v,
denies changes to stool/urine.
Past Medical History
Past Medical History: Arrhythmias (afib, PVCs), CHF, COPD, HTN, Hypercholesterolemia and Other
Past Surgical History: Other (Cardiac (s/p medtronic DC ICD 04/2023), Orthopedic (Left knee arthroscopy 2010, Right knee surgery 2017) and Other (Basal cell left ear 2020. Cataract extraction 2021. Melanoma excision right wrist 2023))
Social History
Tobacco: Former Smoker
Alcohol: Occasional
Personal:
Living: With Family
Family History
Family History: Reviewed & Noncontributory
Allergies / Home Medications
Allergy/AdvReac Type Severity Reaction Status Date / Time
No Known Allergies Allergy Verified 06/11/24 15:08
�Medication �Instructions �Recorded �Confirmed �Type
atorvastatin 10 mg tablet 10 mg PO DAILY High Cholesterol 04/24/23 06/11/24 History
rivaroxaban 20 mg tablet (Xarelto) 20 mg PO HS Blood Clot 04/24/23 06/11/24 History
Prevention/Tx
vitamin B complex 1 tab PO DAILY Supplement 04/24/23 06/11/24 History
empagliflozin 10 mg tablet 10 mg PO DAILY HF #30 tabs 04/27/23 06/11/24 Rx
(Jardiance)
aflibercept 8 mg/0.07 mL 8 mg intravitreal Q4W Eye Condition 01/20/24 06/11/24 History
intravitreal solution for
injection (Eylea HD)
amiodarone 200 mg tablet (Pacerone) 200 mg PO DAILY VTach 01/20/24 06/11/24 History
peg 400-propylene glycol (PF) 0.4 1 drp BOTH EYES Q6HPRN PRN dry eyes 01/20/24 06/11/24 History
%-0.3 % eye drops in a dropperette
(Systane (PF))
sacubitril 24 mg-valsartan 26 mg 1 tab PO BID Heart Failure 01/20/24 06/11/24 History
tablet (Entresto)
spironolactone 25 mg tablet 12.5 mg PO DAILY Blood Pressure 01/20/24 06/11/24 History
sulfamethoxazole 400 1 tab PO DAILY Infection 01/20/24 06/11/24 History
mg-trimethoprim 80 mg tablet
(Bactrim)
therapeutic multivitamin 1 tab PO DAILY Supplement 01/20/24 06/11/24 History
acetaminophen 325 mg tablet 650 mg PO DAILYPRN PRN fever 06/11/24 06/11/24 History
(Tylenol)
carvedilol 6.25 mg tablet 6.25 mg PO BID Blood Pressure 06/11/24 06/11/24 History
fluticasone fur. 100 mcg-umeclid 1 inh inhalation R DAILY 06/11/24 06/11/24 History
62.5 mcg-vilant 25 mcg Lung/Breathing Issues
inhalat.powder (Trelegy Ellipta)
furosemide 20 mg tablet 20 mg PO DAILY Fluid 06/11/24 06/11/24 History
Retention/Swelling
pantoprazole 40 mg tablet,delayed 40 mg PO DAILY Gastrointestinal 06/11/24 06/11/24 History
release Issue
prednisone 20 mg tablet 30 mg PO DAILY ANTI-INFLAMMATION 06/11/24 06/11/24 History
tiotropium bromide 2.5 2 puff inhalation R DAILY 06/11/24 06/11/24 History
mcg/actuation mist for inhalation Lung/Breathing Issues
(Spiriva Respimat)
Review of Systems
-
A 10 point review of systems was completed, and was negative except as per HPI.
Physical Exam
Vital Signs
Temp Pulse Resp BP Pulse Ox
99.2 F 65 16 110/77 93
06/18/24 07:15 06/18/24 10:00 06/18/24 10:00 06/18/24 10:00 06/18/24 10:00
06/17/24 06/18/24 06/19/24
06:59 06:59 06:59
Actual Weight 98.2 kg 94.5 kg
Body Mass Index (BMI) 31.7
Lab Results
06/18/24 05:39
WBC 10.0 10^3/uL (4.8-10.8) 06/18/24 05:39
Hgb 10.4 g/dL (13.0-18.0) L 06/18/24 05:39
Hct 32.6 % (39.0-52.0) L 06/18/24 05:39
Plt Count 128 10^3/uL (130-400) L D 06/18/24 05:39
Abs Immat Gran (auto) 0.5 10^3/uL (0-0.05) H 06/18/24 05:39
Neutrophils % 85.5 % (42.2-75.2) H 06/18/24 05:39
Physical Exam
HEENT: Normocephalic and Anicteric
GI: Soft, Non Tender and Non Distended
Skin: Warm and Dry
Neuro: Awake and Alert
Psych: Calm
Data Reviewed
-
CT Scan: Image Personally Visualized and interpreted, Report Reviewed by me, Discussed with Physician, Discussed with Patient and Discussed with Family
Labs: Labs Reviewed by me, Discussed with Physician, Discussed with Patient and Discussed with Family
Old Records: Reviewed
Assessment / Plan
-
74M with CVA, also noted to have intermittent fevers for past month
CT A/P yesterday with ? stranding around gb prompting surgical consult
He denies abd pain and abd exam is benign
His LFTs are WNL
Doubt gb involvement
No plan for surgical intervention
GS will s/o pls call with ?s
--- NOTE | 2024-06-18 12:23 | W.PN.NEURO.1 ---
Today's Communication / Plan
-
Restart rivaroxaban
Neuro Assessment/Plan
Assessment
Brain MRI showed acute posterior division of the R MCA ischemic infarct with no microhemorrhages or shift.
TTE-no evidence of intramural thrombus or PFO, ASA.
Routine EEG- right hemispheric slowing, no evidence of epileptiform abnormalities.
LDL�101, hemoglobin A1c�5.8, Pl 129.
Assessment:
I. Acute right MCA stroke, posterior to meningioma. Likely etiology�embolic.
II. Right frontal meningioma.
Plan
Restart rivaroxaban June 18, 2024 there is no contraindication by current imaging
Continue thiamine
No intervention needed for right frontal meningioma, repeat imaging in approximately 1 year to determine stability
Advance atorvastatin from 40 mg to 80 mg to ensure adequate coverage against elevated LDL, greater than 70
Will follow as needed
Subjective/Objective
Subjective Data
Date of Service: June 18, 2024
Objective Data
Vital Signs
Temp Pulse Resp BP Pulse Ox
37.3 C 65 16 110/77 93
06/18/24 07:15 06/18/24 10:00 06/18/24 10:00 06/18/24 10:00 06/18/24 10:00
Lab Results
06/18/24 05:39
Sodium 143 mmol/L (135-145) 06/18/24 05:39
Potassium 3.8 mmol/L (3.5-5.1) 06/18/24 05:39
BUN 26 mg/dl (9-20) H 06/18/24 05:39
Glucose 83 mg/dl (70-99) 06/18/24 05:39
Calcium 8.0 mg/dl (8.4-10.2) L 06/18/24 05:39
LDL Cholesterol, Calc 101 mg/dl 06/12/24 04:28
Patient Allergies
No Known Allergies Allergy (Verified 06/11/24 15:08)
Past History
Past History
ED Past Medical History: Arrthythmia (Paroxysmal atrial fibrillation), Cancer (Basal cell skin cancer), CHF, COPD, CVA (Right M2 ischemic stroke May 2024), GERD, HTN, Hypercholesterolemia and Other (Sarcoidosis, PE, meningioma right frontal)
ED Past Surgical History: Cardiac (Cardiac catheterization December 2014, nonocclusive CAD) and Orthopedic (Left knee)
Social History
Tobacco: Former smoker
Alcohol: Daily
Drug: None
Personal:
Living: with family
Employment: Retired
Family History
Family History: Hypertension
Medications
-
Medications:
Generic Name Dose Route Start Last Admin
Trade Name Freq PRN Reason Stop Dose Admin
Acetaminophen 650 mg 06/11/24 14:20 06/14/24 13:23
Acetaminophen 325 Mg Tablet PO 07/09/24 14:19 650 mg
Q4HPRN PRN Administration
MOONEY, mild pain, or temp >100.4F
Albuterol/Ipratropium 3 ml 06/11/24 16:33
Ipratropium 0.5/Albuterol 3 Mg (3 Ml Ampul) INH
R Q4HPRN PRN
sob or wheezing
Protocol
Amiodarone HCl 200 mg 06/13/24 14:00 06/18/24 11:16
Amiodarone 200 Mg Tablet PO 07/11/24 13:59 200 mg
DAILY ROMAN Administration
Artificial Tears 1 drops 06/13/24 13:57
Artificial Tears Pf (Refresh) 10 Drop Droperette BOTH EYES 07/11/24 13:56
Q6HPRN PRN
dry eyes
Aspirin 81 mg 06/15/24 08:00 06/18/24 11:07
Aspirin 81 Mg Chewable Tablet PO 07/13/24 07:59 81 mg
DAILY ROMAN Administration
Atorvastatin Calcium 80 mg 06/15/24 18:00 06/17/24 17:52
Atorvastatin (Lipitor) 80 Mg Tablet PO 07/13/24 17:59 Not Given
QPM ROMAN
Budesonide/Formoterol Fumarate 2 puff 06/13/24 20:00 06/18/24 07:44
Symbicort Inhaler 80/4.5 INH 07/11/24 19:59 2 puff
R BID ROMAN Administration
Protocol
Carvedilol 6.25 mg 06/13/24 20:00 06/18/24 11:17
Carvedilol 6.25 Mg Tablet PO 07/11/24 19:59 6.25 mg
BID ROMAN Administration
Ceftriaxone Sodium 2,000 mg 06/17/24 12:00 06/18/24 11:08
Ceftriaxone 2,000 Mg/20 Ml Vial IV 2,000 mg
Q12 ROMAN Administration
Dapagliflozin 10 mg 06/14/24 08:00 06/18/24 11:07
Dapagliflozin (Farxiga) 10 Mg Tablet PO 07/12/24 07:59 10 mg
DAILY ROMAN Administration
Dextrose 12.5 grams 06/11/24 16:32
Dextrose 50% (0.5 Grams/Ml) 50 Ml Syringe IV 07/09/24 16:31
[id number] PRN
hypoglycemia
Protocol
Folic Acid 1 mg 06/11/24 16:00 06/18/24 11:08
Folic Acid 1 Mg Tablet PO 07/09/24 15:59 1 mg
DAILY ROMAN Administration
Furosemide 20 mg 06/14/24 08:00 06/18/24 11:07
Furosemide 20 Mg Tablet PO 07/12/24 07:59 20 mg
DAILY ROMAN Administration
Glucagon 1 mg 06/11/24 16:32
Glucagon 1 Mg Vial IM 07/09/24 16:31
PRN PRN
hypoglycemia
Protocol
Heparin Sodium 5,000 units 06/11/24 20:00 06/18/24 11:09
Heparin 5,000 Units/Ml 1 Ml Vial SC 07/09/24 19:59 5,000 units
Q12 ROMAN Administration
Folic Acid 1 mg/ Sodium 50.2 mls @ 200.8 mls/hr 06/11/24 15:30 06/11/24 17:12
Chloride IV 07/09/24 15:29 50.2 mls
DAILYPRN PRN Administration
if NPO
Ampicillin Sodium 2,000 mg/ 108 mls @ 108 mls/hr 06/16/24 14:00 06/18/24 11:08
Sodium Chloride IV 108 mls
Q4H ROMAN Administration
Lorazepam 1 mg 06/11/24 15:30
Lorazepam 1 Mg Tablet PO 07/09/24 15:29
Q2HPRN PRN
MSAS 5-7
Lorazepam 1 mg 06/11/24 15:30
Lorazepam 2 Mg/Ml Vial IV 07/09/24 15:29
Q1HPRN PRN
MSAS 8-11
Lorazepam 2 mg 06/11/24 15:30
Lorazepam 2 Mg/Ml Vial IV 07/09/24 15:29
Q1HPRN PRN
MSAS > 11
Metoprolol Tartrate 5 mg 06/11/24 15:33
Metoprolol 5 Mg/5 Ml Vial IV 07/09/24 15:32
Q6HPRN PRN
HR sustained >120
Miconazole Nitrate 0 applic 06/12/24 22:43 06/16/24 05:18
Miconazole Powder Bottle TOPICAL 07/10/24 22:42 1 applic
BIDPRN PRN Administration
PER PROTOCOL
Pantoprazole Sodium 40 mg 06/14/24 08:00 06/18/24 11:17
Pantoprazole 40 Mg Delayed Release Tablet PO 07/12/24 07:59 40 mg
DAILY ROMAN Administration
Prednisone 30 mg 06/14/24 08:00 06/18/24 11:17
Prednisone 20 Mg Tablet PO 07/12/24 07:59 30 mg
DAILY ROMAN Administration
Sacubitril/Valsartan 1 tab 06/13/24 20:00 06/18/24 11:17
Sacubitril 24 Mg/Valsartan 26 Mg (Entresto) Tab PO 07/11/24 19:59 1 tab
BID ROMAN Administration
Sodium Chloride 0 ml 06/11/24 15:30
Sodium Chloride 0.9% (Preservative Free) 10 Ml Vial IV 07/09/24 15:29
PRN PRN
To dilute IV Ativan
Protocol
Sodium Chloride 0 flush 06/11/24 16:00 06/18/24 11:08
Sodium Chloride 0.9% (Flush) Syringe IV 07/09/24 15:59 2 flush
PER PROTOCOL ROMAN Administration
Spironolactone 12.5 mg 06/14/24 08:00 06/18/24 11:16
Spironolactone 12.5 Mg Dose (1/2 Of 25 Mg Tablet) PO 07/12/24 07:59 12.5 mg
DAILY ROMAN Administration
Sterile Water 20 ml 06/17/24 12:00 06/18/24 11:18
Sterile Water For Injection 20 Ml Vial IV 07/15/24 11:59 20 ml
Q12 ROMAN Administration
Thiamine HCl 100 mg 06/14/24 20:00 06/18/24 11:15
Thiamine 100 Mg Tablet PO 07/12/24 19:59 100 mg
BID ROMAN Administration
Tiotropium [place] 2 puff 06/13/24 14:00 06/18/24 07:44
Tiotropium (Spiriva Respimat) 2.5 Mcg Inhaler INH 07/11/24 13:59 2 puff
R DAILY ROMAN Administration
Protocol
Trimethoprim/Sulfamethoxazole 1 tablet 06/14/24 08:00 06/18/24 11:16
Sulfamethoxazole (400 Mg)/Trimethoprim (80 Mg) Tablet PO 1 tablet
DAILY ROMAN Administration
--- NOTE | 2024-06-18 12:27 | W.PN.HOSP.TC ---
Addendum entered and electronically signed by Georgi Randall MD 06/18/24 12:44:
remove NG and start diet as per VSE results: minced and moist with NTL
Addendum entered and electronically signed by Georgi Randall MD 06/18/24 12:35:
#Acute urinary retention
Barker placed
Urology consult
Addendum entered and electronically signed by Georgi Randall MD 06/18/24 12:34:
#minimal hematuria
monitor while on AC
Original Note:
Today's Communication/Plan
-
start heparin drip
cont Abx
dietitian consult for tube feeds
cont LEVERMAN and pending VSE
Assessment / Plan
Assessment / Plan
74yo M with PMhx of HTN, Afib, HLD, GERD, COPD, HFmrEF s/p ICD, chronic steroids, came with sudden onset of L hemiparesis, found acute R MCA embolic stroke and R SUE embolic stroke, bacteremia with E.faecalis with concern for endocarditis. ID
started Abx and recommended CT abd, that accidentally showed concern for PVT and pulmonary embolism. Restarted on anticoagulation as of 06/18/24 after neurology reviewed repeated CT - petechial hemorrhages are not contraindication to AC.
A/P:
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
#R frontal meningioma 1.3cm
ASA, statin
Repeat MRI in 1 year, outpatient neuroSx consult
Xarelto stopped to avoid early bleeding transformation - advised to restart anticoagulation on 06/18/[address] head reviewed by neurologist
HgbA1c 5.8%
LDL 101
PT/OT and LEVERMAN
#Bacteremia, concern for endocarditis
Enterococcus faecalis (ampicillin-sensitive) bacteremia
Possible endocarditis
Cardiology evaluated: repeat TTE since high risk for SARINA
ID consult - cont Abx, repeat Cx, CT abd/pelvis without definite signs of the source
#Possible pulmonary embolism within the visualized right main pulmonary artery
Will start heparin anticoagulation as discussed with neurology - CT head repeated on 06/18/24 showed petechial hemorrhages due to known strokes, however those are not absolute contraindication for anticoagulation
Check LE US
#b/l atelectasis
incentive spirometry
CT showed Stranding of the fat surrounding the gallbladder, raising concern for acute cholecystitis, however clinically no symptoms, LFT normal. US RUQ reasonable.
#PVT thrombosis
poor opacification of the portal vein, but findings raise concern for thrombosis involving the right portal vein
to be on anticoagulation
Two focal splenic infarcts. Splenomegaly.
#Small left adrenal gland mass, stable, likely an adenoma.
Right adrenal gland mass,
was not present on CT scan in 2008
Continued follow-up is recommended.
#Dysphagia
VSE
NG tube
LEVERMAN
#Acute metabolic encephalopathy
2/2 CVA
#EMEKA
resolved
follow Cr
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
#Afib, paroxysmal
#COPD not in exacerbation
#Sarcoidosis on chronic steroids
#Alcohol use d/o
cont home meds
THiamine/folate
Hold Xarelto as per neuro
#Mild thrombocytopenia, reactive
follow CBC
DVT ppx on hep
Full code
I have spent at least 57min reviewing chart, test reuslts, communication with consultants and direct patient care
Anticipated Discharge: > 48 hours
Subjective/Interval History
-
Date of Service: June 18, 2024
Objective Data
-
Labs:
Laboratory Results
06/18/24 06/18/24 06/18/24
05:39 12:00 12:26
WBC 10.0 Pending
Hgb 10.4 L Pending
Hct 32.6 L Pending
Plt Count 128 L D Pending
APTT Pending
Sodium 143
Potassium 3.8
Chloride 110 H
Carbon Dioxide 26
BUN 26 H
Creatinine 1.1
Glucose 83
Calcium 8.0 L
Total Bilirubin 0.8
AST 35
ALT 41
Alkaline Phosphatase 56
06/18/24
18:00
WBC
Hgb Pending
Hct Pending
Plt Count
APTT
Sodium
Potassium
Chloride
Carbon Dioxide
BUN
Creatinine
Glucose
Calcium
Total Bilirubin
AST
ALT
Alkaline Phosphatase
Vital Signs:
Vital Signs
Temp Pulse Resp BP Pulse Ox
99.2 F 65 16 110/77 93
06/18/24 07:15 06/18/24 10:00 06/18/24 10:00 06/18/24 10:00 06/18/24 10:00
I&O
06/17/24 06/18/24 06/19/24
06:59 06:59 06:59
Intake Total 1970
Output Total 1100 / 1100 1100 / 1100
Balance 871 / 871 -1100 / -1100
Review of Systems
-
Unable to obtain full review of systems at this time due to: Acuity
Physical Exam
-
General: No Apparent Distress
HEENT: Normocephalic
Respiratory: Clear to Auscultation
GI: Soft, Nontender and Nondistended
Musculoskeletal: No Clubbing, No Cyanosis and No Edema
Neuro: Awake, Alert and No Motor Deficits (L hemiparesis)
Psych: Calm
[2024-06-18 12:46] LABS: Hematocrit 34.4 % (39.0-52.0); Hemoglobin 11.2 g/dL (13.0-18.0); Mean Corp Hgb Conc. 32.6 g/dL (33.0-37.0); Mean Corpuscular Hgb 30.9 pg (27.0-31.0); Mean Platelet Volume 11.3 fL (7.4-10.4); Platelet Count 143 10^3/uL (130-400); Red Blood Cell Count 3.62 10^6/uL (4.70-6.10); Red Cell Dist. Width 15.9 % (11.5-14.5); White Blood Cell Count 11.2 10^3/uL (4.8-10.8)
[2024-06-18 13:04] LABS: APTT 24.8 Sec (23.4-35.0)
--- NOTE | 2024-06-18 13:26 | PTOTSP ---
Video Swallow Study
Summary: Patient presents with signs of mild-moderate oral, mild pharyngeal dysphagia and concerns for esophageal dysphagia. Patient aspirated thin liquids via straw with an ineffective cough response.
Recommend:
1. IDDSI L5 Minced and Moist, IDDSI Level 2 Mildly Thick Liquids
2. Medications: crushed in puree if medically cleared
3. Strategies: upright to 90 degrees, full supervision and assistance, small single sips/bites, check for oral clearance, reflux precautions
4. Oral care 3x daily
5. INSTRUCTOR DANCING therapy at the acute care level. Dysphagia tx to include education, instruction in compensations, and therapeutic trials of thin liquid water (determine if MCKINLEY/mentation appropriate for ARHP) and advanced solids (pending MCKINLEY/mentation).
[2024-06-18] MEDS: HEPARIN 25000 UNITS/250 ML IV (14:12)
--- NOTE | 2024-06-18 15:14 | PTCARENOTE ---
Pierce sump removed as per MD order. Patient had video swallow today and is now ordered IDDSI-5 mildly thick liquids, supervision and aspiration precautions. Patient drowsy but arousable. Oriented with slow and slurred speech. NIH score 18.
Heparin dri[p started at 1420 at 1700 unis/17 mls/hr. Baseline PTT 24.8. Next PTT due at 2019.
--- NOTE | 2024-06-18 15:25 | W.CARD.DEVCH ---
Cardiac Device Check
-
Device: Implanted Cardioverter-Defibrillator
Model [employer]: [employer]
The patient's device was interrogated with assistance of the device development representative followed by a complete physician review. The device had normal function. No abnormalities seen.
[employer] DC ICD checked by me. Normal lead and device function. No Afib.
[2024-06-18] MEDS: LIPITOR 80 MG PO (16:57)
[2024-06-18 20:52] LABS: Hematocrit 33.8 % (39.0-52.0); Hemoglobin 11.1 g/dL (13.0-18.0)
[2024-06-18 21:04] LABS: APTT 103.3 Sec (23.4-35.0)
[2024-06-19] VITALS (12 sets, daily range): BP systolic 93–136; BP diastolic 53–87; BMI 31.2
[2024-06-19] MEDS: AMPICILLIN 108 MG IV ×6 (03:00→21:58)
[2024-06-19] MEDS: HEPARIN 25000 UNITS/250 ML IV (04:46)
[2024-06-19 05:29] LABS: % Basophils 0.7 % (0-2); % Eosinophils 0.9 % (0-6); % Immature Granulocytes 5.6 % (0-0.5); % Lymphocytes 6.3 % (20.5-51.1); % Neutrophils 83.5 % (42.2-75.2); Absolute Basophils 0.1 10^3/uL (0-0.2); Absolute Eosinophils 0.1 10^3/uL (0-0.7); Absolute Immature Granulocytes 0.6 10^3/uL (0-0.05); Absolute Lymphocytes 0.7 10^3/uL (1.2-3.4); Absolute Monocytes 0.3 10^3/uL (0.1-0.6); Absolute Neutrophils 8.8 10^3/uL (1.4-6.5); Hematocrit 34.4 % (39.0-52.0); Hemoglobin 11.4 g/dL (13.0-18.0); Mean Corp Hgb Conc. 33.1 g/dL (33.0-37.0); Mean Corpuscular Hgb 30.4 pg (27.0-31.0); Mean Corpuscular Volume 91.7 fL (80.0-94.0); Mean Platelet Volume 11.7 fL (7.4-10.4); Nucleated Red Blood Cells % 0.2 % (-); Platelet Count 140 10^3/uL (130-400); Red Blood Cell Count 3.75 10^6/uL (4.70-6.10); Red Cell Dist. Width 15.8 % (11.5-14.5); White Blood Cell Count 10.6 10^3/uL (4.8-10.8)
[2024-06-19 05:41] LABS: APTT 161.1 Sec (23.4-35.0)
[2024-06-19] MEDS: SPIRIVA RESPIMAT 2.5 MCG 2 PUFF INH (07:24)
[2024-06-19] MEDS: SYMBICORT 80/4.5 MCG INHALER 2 PUFF INH ×2 (07:24→19:42)
[2024-06-19] MEDS: ALDACTONE 12.5 MG PO (09:23)
[2024-06-19] MEDS: COREG 6.25 MG PO ×2 (09:23→22:00)
[2024-06-19] MEDS: FARXIGA 10 MG PO (09:23)
[2024-06-19] MEDS: VITAMIN B1 100 MG PO ×2 (09:23→22:00)
[2024-06-19] MEDS: PROTONIX 40 MG PO (09:23)
[2024-06-19] MEDS: DELTASONE 30 MG PO (09:24)
[2024-06-19] MEDS: LOW STRENGTH ASPIRIN 81 MG PO (09:25)
[2024-06-19] MEDS: BACTRIM 400 MG/80 MG 1 TABLET PO (09:25)
[2024-06-19] MEDS: LASIX 20 MG PO (09:26)
[2024-06-19] MEDS: ENTRESTO 24 MG/26 MG 1 TAB PO ×2 (09:26→22:00)
[2024-06-19] MEDS: FOLVITE 1 MG PO (09:26)
[2024-06-19] MEDS: ROCEPHIN 2000 MG IV ×2 (09:27→22:00)
[2024-06-19] MEDS: PACERONE 200 MG PO (09:27)
[2024-06-19] MEDS: STERILE WATER FOR INJECTION 20 ML IV ×2 (09:29→22:00)
--- NOTE | 2024-06-19 10:51 | W.PN.CARDCBS ---
Today's Communication / Plan
-
IV heparin per primary service (okay with OAC per neurology)
Telemetry monitoring
IV antibiotics per primary service/infectious ease
Repeat TTE as serial exam for reassessment possible cardioembolic source/possible vegetation
Impression / Plan
-
Primary Foot Piece Assembler: Dr. Fam
Dr. Ced Mora: ([place] [facility]), phone [phone]
Impression:
Admitted with left sided weakness and possible CVA 06/11/24
Acute right MCA territory CVA with multiple, small scattered foci by MRI
Brain MRI showed acute posterior division of the R MCA ischemic infarct with no microhemorrhages or shift.
CTH 06/18/2024: subacute infarct in the distribution of the pericallosal branch of the right anterior cerebral artery with associated petechial hemorrhage similar to that seen on the prior study; 10 cm subacute right middle cerebral artery infarct
involving portions of the right temporal, parietal and occipital lobes with associated petechial hemorrhage at its anterior margin similar to that seen on the 06/14/2024 examination; Both infarcts are associated with mass effect with effacement of
the overlying sulci and approximately 2 mm shift of midline structures to the left
Pulmonary Embolus, distal right PA
seen on CT AB/Pel w/ IV contrast
TME
Dysphagia
EMEKA
Enterococcus bacteremia
Possible endocarditis
COPD
h/o PE 1999
Chronic Xarelto OAC
Paroxysmal Afib
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
h/o syncope due to VT s/p shock x1 04/24/23
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
s/p [employer] DC ICD placement 04/26/2023
Nonischemic Cardiomyopathy, EF 35-40% by echo 03/2023
Hypertension
Hyperlipidemia
PVCs
Morbid obesity
Previous daily ETOH use, but less now according to
Cardiac cath 04/25/2023: LM: Luminal Irregularities, Ramus: Normal, LCx: normal, RCA: LI, LVEF: 30% global HK and posterior basal HK. 1+MR
Cardiac MRI 04/26/2023: Severe thickening and transmural enhancement in the inferolateral and inferior whitten of the left ventricle c/w previous IN. Focal subendocardial enhancement 50 to 75% of myocardial thickness. Global LV HK.
PET scan-[facility]-05/16/23-increased metabolic activity at the left cardiac border/left ventricle, indicating active disease-sarcoidosis, which correlates with a cardiac MRI findings, hilar and mediastinal lymphadenopathy with increased
metabolic activity indicates active disease as well, cardiac SUV ranging 2.8-3/3, mediastinal, hilar SUV ranging 2.3-3.16 and right hilar lymph node, SUV 3.06, no abnormal pulmonary uptake
PET scan revealed myocardial involvement and mild hilar involvement but no pulmonary parenchymal involvement of sarcoidosis.
ECHO 09/2022: EF 45-50%, mild concentric LVH, focal calcification of anterior mitral valve leaflet, mild MR, trace TR, PAP 39 mmHg
ECHO 04/25/23: EF 35 to 40%, basal to mid inferior and inferolateral akinesis, mild global hypokinesis, stage I diastolic dysfunction, moderate eccentric MR, mild TR, PAP 26 to 31 mmHg, mildly dilated aortic root
ECHO 01/22/24: EF visually 35 to 40%, EF 40 to 45% by Dunbar's, inferior wall hypokinetic and basal inferolateral wall akinetic, mild LVH, ICD noted, mild to moderate MR, trace TR, PAP 30 to 35 mmHg, no significant change compared to prior echo
Echo 06/11/24: EF 50%, mild to mod conc LVH, stage I diastolic dysfunction, normal RV size and function, mild MR, mild TR
Echo 06/17/2024: Low normal LVEF estimated 50% with basal point lateral akinesis, normal RV, normal atria, mild MR, sclerotic aortic valve, no obvious visitation or change in valvular heart disease for technically difficult study.
Plan:
-Patient came to [facility] last week with CVA and cardiology is now consulted for consideration of SARINA due to bacteremia. Patient's provides bulk of HPI and she says that the week before Thanksgiving the patient had a fever with temp to 103 degrees
Fahrenheit, but no other symptoms. Fever resolved and then recurred and this happened several times over last few weeks and so he saw his PCP, but his only symptom was fatigue. Then patient awoke last Monday morning around 3 AM and was
uncomfortable and so his gave him some Tylenol. Then around 629 patient's awoke to the sound of patient trying to get out of bed and he did not look well and then she noticed left sided weakness and called 911. Patient was a pre-hospital
stroke alert, but was not a candidate for TNK due to chronic Xarelto. MRI then revealed scattered foci in the right MCA distribution and patient was treated as a CVA. Patient started to have more of the fevers he was experiencing prior to admission
and blood cultures grew Enterococcus. Repeat Ct head 06/14/24 showed new right SUE territory CVA. ID is now seeing the patient and recommended consideration of a SARINA.
-Talked with patient's at bedside and reviewed his symptoms leading up to admission and hospital course thus far including the new right SUE infarcts seen on follow up CT 06/14/24. Reviewed blood cultures results and concern for possible
endocarditis.
-Reviewed SARINA procedure with patient's and the need for sedation. Patient continues with TME. Repeat TTE shows no obvious vegetation could consider SARINA if this would change the duration of antibiotics, but doubt that patient would be a
candidate for valve surgery.
-For now patient being managed with ampicillin and ceftriaxone, defer to ID
-Concern for PE noted on CT ab/pel; unclear at this time if thrombus vs vegetation given history; patient had been on OAC until admission and placed on SubQ Heparin for DVT PPX
-Continues with TME. Xarelto has not been restarted. ECG and tele reviewed by me look like SR. Pending results of another Ct scheduled for 06/18/24 the Xarelto might be restarted; OK to resume per neuro on 06/18
-Device interrogation shows stable function, no tachytherapies
-EF 50% by echo and was previously 35-40% at last echo 12/2023 in the setting of severe COVID illness.
-ECG and tele looks like SR. Outpatient dose of amiodarone 200 mg daily has been continued and QTc 477 ms by ECG 06/11/24.
-Cre 1.5 on admission and improved to 1.2 06/17 now 1.1. Outpatient dose of Lasix 20 mg daily has been continued. Weight is up 4 lbs from admission. Patient is NPO and receiving IVFs. VSE ordered and family is now agreeable to NGT for feeding.
Progress Note - Foot Piece Assembler
Subjective
Date of Service: June 19, 2024
Patient seen and examined. at bedside. Patient resting comfortably. Patient reporting improved sleep overnight. Patient with no new complaints. Patient currently denying any chest pain, shortness of breath, palpitations. Telemetry
demonstrating sinus rhythm, a paced V sensed, a paced V paced, PVCs. No sustained arrhythmias.
Objective
Labs:
06/19/24 05:06
Labs
Hgb 11.4 g/dL (13.0-18.0) L 06/19/24 05:06
Hgb Cancelled 06/19/24 05:06
Hct 34.4 % (39.0-52.0) L 06/19/24 05:06
Hct Cancelled 06/19/24 05:06
Plt Count 140 10^3/uL (130-400) 06/19/24 05:06
APTT 161.1 Sec (23.4-35.0) H* 06/19/24 05:13
Sodium Cancelled 06/19/24 05:06
Potassium Cancelled 06/19/24 05:06
BUN Cancelled 06/19/24 05:06
Creatinine Cancelled 06/19/24 05:06
Glucose Cancelled 06/19/24 05:06
Vital Signs and I&O:
Vital Signs
Temp Pulse Resp BP Pulse Ox
98.8 F 70 14 126/76 95
06/19/24 07:23 06/19/24 07:31 06/19/24 07:31 06/19/24 06:00 06/19/24 07:31
Vital Signs
Temp Pulse Resp BP Pulse Ox
98.8 F 70 14 126/76 95
06/19/24 07:23 06/19/24 07:31 06/19/24 07:31 06/19/24 06:00 06/19/24 07:31
Intake & Output
06/17/24 06/18/24 06/19/24 06/20/24
06:59 06:59 06:59 06:59
Intake Total 1971 / 1971 856 / 856
Output Total 1100 / 1100 1100 / 1100 2200 / 2200 300 / 300
Balance 871 / 871 -1100 / -1100 -1344 / -1344 -300 / -300
Physical Exam
Physical Exam
GEN: No distress, awake, Ox3
HEENT: supple, anicteric, mmm
LUNGS: CTA, no wheezes/rales
CV: Reg, S1/S2, 1/6 syst LSB, no gallop
ABD: soft, BS+, NT/ND
EXT: No edema
NEURO: L sided weakness
SKIN: No rash
--- NOTE | 2024-06-19 11:04 | W.PN.HOSP.TC ---
Today's Communication/Plan
-
pending final mgmt by ID (PICC) and card (repeated TTE) before d/c
Plan to switch to Xarelto DVT dose tomorrow
Assessment / Plan
Assessment / Plan
74yo M with PMhx of HTN, Afib, HLD, GERD, COPD, HFmrEF s/p ICD, chronic steroids, came with sudden onset of L hemiparesis, found acute R MCA embolic stroke and R SUE embolic stroke, bacteremia with E.faecalis with concern for endocarditis. ID
started Abx and recommended CT abd, that accidentally showed concern for PVT and pulmonary embolism. Restarted on anticoagulation as of 06/18/24 after neurology reviewed repeated CT - petechial hemorrhages are not contraindication to AC.
A/P:
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
#R frontal meningioma 1.3cm
ASA, statin
Repeat MRI in 1 year, outpatient neuroSx consult
Xarelto stopped to avoid early bleeding transformation - advised to restart anticoagulation on 06/18/[address] head reviewed by neurologist
HgbA1c 5.8%
LDL 101
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
#Bacteremia, concern for endocarditis
Enterococcus faecalis (ampicillin-sensitive) bacteremia
Possible endocarditis
Cardiology evaluated: repeat serial TTE since high risk for SARINA
ID consult - cont Abx, repeat Cx, CT abd/pelvis without definite signs of the source, recommend outpatient EGD/COlonoscopy
#Possible pulmonary embolism within the visualized right main pulmonary artery
Will start heparin anticoagulation as discussed with neurology - CT head repeated on 06/18/24 showed petechial hemorrhages due to known strokes, however those are not absolute contraindication for anticoagulation
Check LE US
#b/l atelectasis
incentive spirometry
CT showed Stranding of the fat surrounding the gallbladder, raising concern for acute cholecystitis, however clinically no symptoms, LFT normal. US RUQ reasonable.
#PVT thrombosis
poor opacification of the portal vein, but findings raise concern for thrombosis involving the right portal vein
to be on anticoagulation
Two focal splenic infarcts. Splenomegaly.
#Small left adrenal gland mass, stable, likely an adenoma.
Right adrenal gland mass,
was not present on CT scan in 2008
Continued follow-up is recommended.
#Dysphagia
VSE
NG tube
BAGGAGE SMASHER
#Acute metabolic encephalopathy
2/2 CVA
#EMEKA
resolved
follow Cr
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
#Afib, paroxysmal
#COPD not in exacerbation
#Sarcoidosis on chronic steroids
#Alcohol use d/o
cont home meds
THiamine/folate
Hold Xarelto as per neuro
#Mild thrombocytopenia, reactive
follow CBC
DVT ppx on hep
Full code
I have spent at least 57min reviewing chart, test results, communication with consultants and direct patient care
Anticipated Discharge: > 48 hours
Subjective/Interval History
-
Date of Service: June 19, 2024
Objective Data
-
Labs:
Laboratory Results
06/19/24 06/19/24 06/19/24
05:06 05:06 05:06
WBC 10.6
Hgb Cancelled 11.4 L
Hct Cancelled 34.4 L
Plt Count 140
APTT
Sodium Cancelled
Potassium Cancelled
Chloride Cancelled
Carbon Dioxide Cancelled
BUN Cancelled
Creatinine Cancelled
Glucose Cancelled
Calcium Cancelled
Total Bilirubin Cancelled
AST Cancelled
ALT Cancelled
Alkaline Phosphatase Cancelled
06/19/24 06/19/24 06/19/24
05:13 06:50 13:30
WBC
Hgb
Hct
Plt Count
APTT 161.1 H* Pending
Sodium Pending
Potassium Pending
Chloride Pending
Carbon Dioxide Pending
BUN Pending
Creatinine Pending
Glucose Pending
Calcium Pending
Total Bilirubin Pending
AST Pending
ALT Pending
Alkaline Phosphatase Pending
Vital Signs:
Vital Signs
Temp Pulse Resp BP Pulse Ox
98.8 F 70 14 126/76 95
06/19/24 07:23 06/19/24 07:31 06/19/24 07:31 06/19/24 06:00 06/19/24 07:31
I&O
06/18/24 06/19/24 06/20/24
06:59 06:59 06:59
Intake Total 856 / 856
Output Total 1100 / 1100 2200 / 2200 300 / 300
Balance -1100 / -1100 -1344 / -1344 -300 / -300
Review of Systems
-
History Source: Patient and Family
All other systems: Reviewed and negative
Physical Exam
-
General: No Apparent Distress
Respiratory: Clear to Auscultation
Cardiac: Regular Rhythm
Musculoskeletal: No Clubbing, No Cyanosis and No Edema
Neuro: Awake and Alert
Psych: Calm
[2024-06-19 14:02] LABS: ALT (SGPT) 38 U/L (0-50); APTT 91.5 Sec (23.4-35.0); AST (SGOT) 30 U/L (17-59); Albumin 2.9 g/dl (3.5-5.0); Alkaline Phosphatase 55 U/L (38-126); Blood Urea Nitrogen 25 mg/dl (9-20); Calcium 7.5 mg/dl (8.4-10.2); Carbon Dioxide 25 mmol/L (22-30); Chloride 108 mmol/L (98-107); Estimated Creatinine Clearance 73 ml/min; Glucose 138 mg/dl (70-99); Potassium 3.8 mmol/L (3.5-5.1); Sodium 140 mmol/L (135-145); Total Bilirubin 0.7 mg/dl (0.2-1.3); Total Protein 5.5 g/dl (6.3-8.2); eGFR > 60.00
[2024-06-19] MEDS: LIPITOR 80 MG PO (18:04)
[2024-06-19 19:48] LABS: APTT 97.1 Sec (23.4-35.0)
[2024-06-20] VITALS (15 sets, daily range): BP systolic 103–142; BP diastolic 60–77; PULSE 70; O2SAT 96; BMI 31.2
[2024-06-20] MEDS: HEPARIN 25000 UNITS/250 ML IV (02:05)
[2024-06-20] MEDS: AMPICILLIN 108 MG IV ×6 (02:05→22:38)
--- NOTE | 2024-06-20 03:28 | PTCARENOTE ---
Pt oriented x4. Drowsy but arousable. Heparin gtt titrated per protocol. Pt is tired of blood draws; encouragement provided. Repositioned throughout the night. NIH unchanged. swallowing pills crushed in applesauce; no s/s of aspiration. Speech is
slow. castillo in place. NSR on tele. call marquez within reach. pt calls appropriately and appreciative of care.
[2024-06-20] MEDS: REFRESH EYE DROPS (PF) 1 DROPS BOTH EYES (05:27)
[2024-06-20 06:10] LABS: Hematocrit 32.6 % (39.0-52.0); Hemoglobin 10.5 g/dL (13.0-18.0); Mean Corp Hgb Conc. 32.2 g/dL (33.0-37.0); Mean Corpuscular Hgb 30.6 pg (27.0-31.0); Mean Platelet Volume 12.5 fL (7.4-10.4); Platelet Count 158 10^3/uL (130-400); Red Blood Cell Count 3.43 10^6/uL (4.70-6.10); Red Cell Dist. Width 15.7 % (11.5-14.5); White Blood Cell Count 11.5 10^3/uL (4.8-10.8)
[2024-06-20 06:15] LABS: APTT 123.7 Sec (23.4-35.0)
--- NOTE | 2024-06-20 07:17 | W.PN.HOSP.TC ---
Today's Communication/Plan
-
Hematuria resolved - start Xarelto, stop heparin
pending neg Bcx for PICC
Hem consult
Assessment / Plan
Assessment / Plan
74yo M with PMhx of HTN, Afib, HLD, GERD, COPD, HFmrEF s/p ICD, chronic steroids, came with sudden onset of L hemiparesis, found acute R MCA embolic stroke and R SUE embolic stroke, bacteremia with E.faecalis with concern for endocarditis. ID
started Abx and recommended CT abd, that accidentally showed concern for PVT and pulmonary embolism. Restarted on anticoagulation as of 06/18/24 after neurology reviewed repeated CT - petechial hemorrhages are not contraindication to AC.
A/P:
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
#R frontal meningioma 1.3cm
ASA, statin
Repeat MRI in 1 year, outpatient neuroSx consult
Xarelto initially stopped to avoid early bleeding transformation - advised to restart anticoagulation on 06/18/[address] head reviewed by neurologist
HgbA1c 5.8%
LDL 101
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
#Bacteremia, concern for endocarditis
Enterococcus faecalis (ampicillin-sensitive) bacteremia, pending repeated neg Bcx for PICC
Possible endocarditis
Cardiology evaluated: repeat serial TTE since high risk for SARINA
ID consult - cont Abx (AMpicillin+Ceftriaxone), CT abd/pelvis without definite signs of the source, recommend outpatient EGD/COlonoscopy
#Possible pulmonary embolism within the visualized right main pulmonary artery
#Non-occlusive acute LLE DVT
#PVT thrombosis
Will start heparin anticoagulation as discussed with neurology - CT head repeated on 06/18/24 showed petechial hemorrhages due to known strokes, however those are not absolute contraindication for anticoagulation
Heparin drip completed - switched to Xarelto 15mg BID until 07/11/24, then Xarelto 20mg HS
poor opacification of the portal vein, but findings raise concern for thrombosis involving the right portal vein
to be on anticoagulation, confirmed on US RUQ
With significant thrombophilia - Hematology consult
#b/l atelectasis
incentive spirometry
#CT showed Stranding of the fat surrounding the gallbladder
#Small gall bladder polyps with sludge
concern for acute cholecystitis, however clinically no symptoms, LFT normal. US RUQ reasonable neg for cholecystitis
#Two focal splenic infarcts
Thromboembolic?
#Hematuria
#Acute urinary retention
now on Castillo
Hematuria 2/2 traumatic castillo, now resolved
TOV when ambulating
Urology as outpatient for cystoscopy
#Small left adrenal gland mass, stable, likely an adenoma.
Right adrenal gland mass,
was not present on CT scan in 2008
Continued follow-up is recommended.
#Dysphagia
VSE passed, diet started
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
#Acute metabolic encephalopathy
2/2 CVA
#EMEKA
resolved
follow Cr
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
#Afib, paroxysmal
#COPD not in exacerbation
#Sarcoidosis on chronic steroids
#Alcohol use d/o
cont home meds
THiamine/folate
Hold Xarelto as per neuro
#Mild thrombocytopenia, reactive
follow CBC
DVT ppx on hep
Full code
I have spent at least 57min reviewing chart, test results, communication with consultants and direct patient care
Anticipated Discharge: > 48 hours
Subjective/Interval History
-
Date of Service: June 20, 2024
Objective Data
-
Labs:
Laboratory Results
06/19/24 06/20/24 06/20/24
19:22 05:36 06:18
WBC 11.5 H
Hgb 10.5 L
Hct 32.6 L
Plt Count 158
APTT 97.1 H 123.7 H
Sodium Cancelled Pending
Potassium Cancelled Pending
Chloride Cancelled Pending
Carbon Dioxide Cancelled Pending
BUN Cancelled Pending
Creatinine Cancelled Pending
Glucose Cancelled Pending
Calcium Cancelled Pending
Total Bilirubin Cancelled Pending
AST Cancelled Pending
ALT Cancelled Pending
Alkaline Phosphatase Cancelled Pending
06/20/24
12:20
WBC
Hgb
Hct
Plt Count
APTT Pending
Sodium
Potassium
Chloride
Carbon Dioxide
BUN
Creatinine
Glucose
Calcium
Total Bilirubin
AST
ALT
Alkaline Phosphatase
Vital Signs:
Vital Signs
Temp Pulse Resp BP Pulse Ox
97.3 F 60 14 142/77 94
06/20/24 03:18 06/20/24 06:00 06/20/24 06:00 06/20/24 06:00 06/20/24 06:00
I&O
06/19/24 06/20/24 06/21/24
06:59 06:59 06:59
Intake Total 856 / 856 308 / 308
Output Total 2200 / 2200 2175 / 2175
Balance -1344 / -1344 -1867 / -1867
Review of Systems
-
Unable to obtain full review of systems at this time due to: Dementia and Acuity
Physical Exam
-
General: No Apparent Distress
HEENT: Normocephalic
Respiratory: Clear to Auscultation
GI: Soft, Nontender and Nondistended
Genito-urinary: Clear Urine and Castillo
Musculoskeletal: No Clubbing, No Cyanosis and No Edema
Neuro: Awake and Alert
Psych: Calm
[2024-06-20 07:40] LABS: % Basophils 0.2 % (0-2); % Eosinophils 0.3 % (0-6); % Immature Granulocytes 5.6 % (0-0.5); % Lymphocytes 5.7 % (20.5-51.1); % Neutrophils 85.2 % (42.2-75.2); Absolute Immature Granulocytes 0.6 10^3/uL (0-0.05); Absolute Lymphocytes 0.7 10^3/uL (1.2-3.4); Absolute Monocytes 0.3 10^3/uL (0.1-0.6); Absolute Neutrophils 9.8 10^3/uL (1.4-6.5); Nucleated Red Blood Cells % 0 % (-)
[2024-06-20] MEDS: SPIRIVA RESPIMAT 2.5 MCG 2 PUFF INH (07:57)
[2024-06-20] MEDS: SYMBICORT 80/4.5 MCG INHALER 2 PUFF INH ×2 (07:57→20:16)
[2024-06-20] MEDS: STERILE WATER FOR INJECTION 20 ML IV ×2 (09:02→21:12)
[2024-06-20] MEDS: ROCEPHIN 2000 MG IV ×2 (09:03→21:12)
[2024-06-20] MEDS: FLUSH (NSS) 1 FLUSH IV ×2 (09:07→17:57)
[2024-06-20] MEDS: FOLVITE 1 MG PO (09:08)
[2024-06-20] MEDS: XARELTO 15 MG PO (09:08)
[2024-06-20] MEDS: FARXIGA 10 MG PO (09:08)
[2024-06-20] MEDS: VITAMIN B1 100 MG PO ×2 (09:08→21:12)
[2024-06-20] MEDS: BACTRIM 400 MG/80 MG 1 TABLET PO (09:09)
[2024-06-20] MEDS: DELTASONE 30 MG PO (09:09)
[2024-06-20] MEDS: LASIX 20 MG PO (09:14)
[2024-06-20] MEDS: PROTONIX 40 MG PO (09:30)
--- NOTE | 2024-06-20 09:30 | PTCARENOTE ---
Heparin drip discontinued this morning and xarelto given at that time. NIH score 18. Patient drowsy, easily arousable. Alert and oriented, slow and slurred speech with mild aphagia. A-paced with pvc's on monitor. Vital signs stable.
--- NOTE | 2024-06-20 10:14 | W.PN.CARDCBS ---
Today's Communication / Plan
-
He overall remains stable. Repeat blood cultures have been negative after the positive cultures on 06/16 for Enterococcus. No new fevers.
He does have possible pulmonary embolism will be started on full anticoagulation today. Continue to monitor neuroexam closely with microhemorrhages. Hemoglobin at 10.5. Platelet count stable.
Transthoracic echo performed 1224 has no clear endovascular lesions with no severe regurgitation. Case have been discussed with ID and would only do SARINA if this would help change the length of management of antibiotics.
Continue supportive care.
Continue Coreg, Lasix, amiodarone, and Farxiga. Weight is overall down.
With stroke and possible embolic events okay to start PT
Impression / Plan
-
Primary Joint Terminal Attack Controller: Dr. Fam
Dr. Ced Mora: ([place] cardiac sarcoid), phone [phone]
Impression:
Admitted with left sided weakness and possible CVA 06/11/24
Acute right MCA territory CVA with multiple, small scattered foci by MRI
Brain MRI showed acute posterior division of the R MCA ischemic infarct with no microhemorrhages or shift.
CTH 06/18/2024: subacute infarct in the distribution of the pericallosal branch of the right anterior cerebral artery with associated petechial hemorrhage similar to that seen on the prior study; 10 cm subacute right middle cerebral artery infarct
involving portions of the right temporal, parietal and occipital lobes with associated petechial hemorrhage at its anterior margin similar to that seen on the 06/14/2024 examination; Both infarcts are associated with mass effect with effacement of
the overlying sulci and approximately 2 mm shift of midline structures to the left
Pulmonary Embolus, distal right PA
seen on CT AB/Pel w/ IV contrast
TME
Dysphagia
EMEKA
Enterococcus bacteremia
Possible endocarditis
COPD
h/o PE 1983, 1999
Chronic Xarelto OAC
Paroxysmal Afib
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
h/o syncope due to VT s/p shock x1 04/24/23
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
s/p Medtronic DC ICD placement 04/26/2023
Nonischemic Cardiomyopathy, EF 35-40% by echo 03/2023
Hypertension
Hyperlipidemia
PVCs
Morbid obesity
Previous daily ETOH use, but less now according to
Cardiac cath 04/25/2023: LM: Luminal Irregularities, Ramus: Normal, LCx: normal, RCA: LI, LVEF: 30% global HK and posterior basal HK. 1+MR
Cardiac MRI 04/26/2023: Severe thickening and transmural enhancement in the inferolateral and inferior whitten of the left ventricle c/w previous ID. Focal subendocardial enhancement 50 to 75% of myocardial thickness. Global LV HK.
PET scan-[facility]-05/16/23-increased metabolic activity at the left cardiac border/left ventricle, indicating active disease-sarcoidosis, which correlates with a cardiac MRI findings, hilar and mediastinal lymphadenopathy with increased
metabolic activity indicates active disease as well, cardiac SUV ranging 2.8-3/3, mediastinal, hilar SUV ranging 2.3-3.16 and right hilar lymph node, SUV 3.06, no abnormal pulmonary uptake
PET scan revealed myocardial involvement and mild hilar involvement but no pulmonary parenchymal involvement of sarcoidosis.
ECHO 09/2022: EF 45-50%, mild concentric LVH, focal calcification of anterior mitral valve leaflet, mild MR, trace TR, PAP 39 mmHg
ECHO 04/25/23: EF 35 to 40%, basal to mid inferior and inferolateral akinesis, mild global hypokinesis, stage I diastolic dysfunction, moderate eccentric MR, mild TR, PAP 26 to 31 mmHg, mildly dilated aortic root
ECHO 01/22/24: EF visually 35 to 40%, EF 40 to 45% by Dunbar's, inferior wall hypokinetic and basal inferolateral wall akinetic, mild LVH, ICD noted, mild to moderate MR, trace TR, PAP 30 to 35 mmHg, no significant change compared to prior echo
Echo 06/11/24: EF 50%, mild to mod conc LVH, stage I diastolic dysfunction, normal RV size and function, mild MR, mild TR
Echo 06/17/2024: Low normal LVEF estimated 50% with basal point lateral akinesis, normal RV, normal atria, mild MR, sclerotic aortic valve, no obvious visitation or change in valvular heart disease for technically difficult study.
Plan:
-Patient came to [facility] last week with CVA and cardiology is now consulted for consideration of SARINA due to bacteremia. Patient's provides bulk of HPI and she says that the week before Thanksgiving the patient had a fever with temp to 103 degrees
Fahrenheit, but no other symptoms. Fever resolved and then recurred and this happened several times over last few weeks and so he saw his PCP, but his only symptom was fatigue. Then patient awoke last Monday morning around 3 AM and was
uncomfortable and so his gave him some Tylenol. Then around 0630 patient's awoke to the sound of patient trying to get out of bed and he did not look well and then she noticed left sided weakness and called 911. Patient was a pre-hospital
stroke alert, but was not a candidate for TNK due to chronic Xarelto. MRI then revealed scattered foci in the right MCA distribution and patient was treated as a CVA. Patient started to have more of the fevers he was experiencing prior to admission
and blood cultures grew Enterococcus. Repeat Ct head 06/14/24 showed new right SUE territory CVA. ID is now seeing the patient and recommended consideration of a SARINA.
-Reviewed SARINA procedure with patient's and the need for sedation. Patient continues with TME. Repeat TTE shows no obvious vegetation could consider SARINA if this would change the duration of antibiotics, but doubt that patient would be a
candidate for valve surgery.
-For now patient being managed with ampicillin and ceftriaxone, defer to ID
-Concern for PE noted on CT ab/pel; unclear at this time if thrombus vs vegetation given history; patient had been on OAC until admission and placed on SubQ Heparin for DVT PPX
-Continues with TME. Xarelto has not been restarted. ECG and tele reviewed by me look like SR. Pending results of another Ct scheduled for 06/18/24 the Xarelto might be restarted; OK to resume per neuro on 06/18
-Device interrogation shows stable function, no tachytherapies
-EF 50% by echo and was previously 35-40% at last echo 12/2023 in the setting of severe COVID illness.
-ECG and tele looks like SR. Outpatient dose of amiodarone 200 mg daily has been continued and QTc 477 ms by ECG 06/11/24.
-Cre 1.5 on admission and improved to 1.2 06/17 now 1.1. Outpatient dose of Lasix 20 mg daily has been continued. Weight is up 4 lbs from admission. Patient is NPO and receiving IVFs. VSE ordered and family is now agreeable to NGT for feeding.
Progress Note - Joint Terminal Attack Controller
Subjective
Date of Service: June 20, 2024
no new fevers. denies complaints
Objective
Labs:
06/20/24 05:36
Labs
Hgb 10.5 g/dL (13.0-18.0) L 06/20/24 05:36
Hct 32.6 % (39.0-52.0) L 06/20/24 05:36
Plt Count 158 10^3/uL (130-400) 06/20/24 05:36
APTT Cancelled 06/20/24 12:20
Sodium Cancelled 06/20/24 05:36
Potassium Cancelled 06/20/24 05:36
BUN Cancelled 06/20/24 05:36
Creatinine Cancelled 06/20/24 05:36
Glucose Cancelled 06/20/24 05:36
Vital Signs and I&O:
Vital Signs
Temp Pulse Resp BP Pulse Ox
97.3 F 74 16 132/73 96
06/20/24 03:18 06/20/24 08:03 06/20/24 08:03 06/20/24 08:00 06/20/24 08:03
Vital Signs
Temp Pulse Resp BP Pulse Ox
97.3 F 74 16 132/73 96
06/20/24 03:18 06/20/24 08:03 06/20/24 08:03 06/20/24 08:00 06/20/24 08:03
Intake & Output
06/18/24 06/19/24 06/20/24 06/21/24
06:59 06:59 06:59 06:59
Intake Total 856 / 856 308 / 308
Output Total 1100 / 1100 2200 / 2200 2175 / 2175
Balance -1100 / -1100 -1344 / -1344 -1867 / -1867
Physical Exam
Physical Exam
GEN: No distress, awake, Ox3
HEENT: supple, anicteric, mmm
LUNGS: scatt rhonchi
CV: Reg, S1/S2, 1/6 syst LSB, no gallop
ABD: soft, BS+, NT/ND
EXT: No edema
NEURO: Gross non-focal
SKIN: No rash
[2024-06-20] MEDS: LOW STRENGTH ASPIRIN 81 MG PO (11:13)
[2024-06-20] MEDS: COREG 6.25 MG PO ×2 (11:13→21:11)
[2024-06-20] MEDS: PACERONE 200 MG PO (11:13)
[2024-06-20] MEDS: ALDACTONE 12.5 MG PO (11:14)
[2024-06-20] MEDS: ENTRESTO 24 MG/26 MG 1 TAB PO ×2 (11:14→21:11)
--- NOTE | 2024-06-20 11:44 | W.PN.ID1 ---
Date of Service
Date of Service: June 20, 2024
Today's Communication
- c/w ampicillin to 2 gm IV q4 hours
- c/w ceftriaxone 2 gm IV q12hrs
- plan at least 6 weeks of IV antibiotics and then likely suppression given pacemaker
- continue bactrim (PJP ppx)
Assessment / Plan
Enterococcal Bacteremia - sustained 06/14-06/16
Acute strokes right MCA
Probable Endocarditis
Splenic infarcts
Sarcoidosis
Immunosuppression on high dose steroids and PJP prophyalxis
Pacemaker
- 06/18 blood cultures x2 in progress no growth to date
- 06/16 blood cultures 1 of 2 sets: enterococcus
- 06/14 blood cultures x2 from two different draws both with enterococcus
- ua no pyuria, urine is not the source
- CT a/p with contrast: concern for PE, possible portal vein thrombus, two focal splenic infarcts, fat stranding seen around gallbladder but normal LFTs,
- eventual egd/colonoscopy recommended outpatient
- plan for serial TTE, appreciate cardiology input
- c/w ampicillin to 2 gm IV q4 hours
- c/w ceftriaxone 2 gm IV q12hrs
- plan at least 6 weeks of IV antibiotics and then likely suppression given pacemaker
- continue bactrim (PJP ppx)
Chief Complaint
-: Bacteremia and Other (possible endocarditis)
Subjective / Review of Systems
afebrile
bp stable
no events overnight
Vital Signs / Physical Exam
Vital Signs
Vital Signs
Temp Pulse Resp BP Pulse Ox
97.3 F 62 14 104/61 96
06/20/24 03:18 06/20/24 10:47 06/20/24 10:47 06/20/24 10:47 06/20/24 10:20
Physical Exam
Constitutional: No Acute Distress and Chronically Ill
Cardiovascular: Regular Rate and S1/S2; Negative Murmur or Rub
Pulmonary: Clear and Symmetric; Negative Wheezes or Rales
Gastrointestinal: Soft, Non Tender, Non Distended and Normal Bowel Sounds
Skin: Warm and Dry; Negative Rash or Jaundice
Objective Data
Lab Data
Lab Results
06/20/24 05:36
APTT Cancelled 06/20/24 12:20
Estimated Creat Clear Cancelled 06/20/24 05:36
Total Bilirubin Cancelled 06/20/24 05:36
AST Cancelled 06/20/24 05:36
ALT Cancelled 06/20/24 05:36
Alkaline Phosphatase Cancelled 06/20/24 05:36
Most recent labs reviewed.
06/20 cr 1.0
Micro Results:
06/16/24 15:52 Blood Culture - Preliminary
Blood/Venous No Growth in 72 hours- Final report to follow
06/18/24 12:46 Blood Culture - Preliminary
Blood/Venous No Growth in 24 hours- Final report to follow
06/18/24 12:38 Blood Culture - Preliminary
Blood/Venous No Growth in 24 hours- Final report to follow
06/16/24 15:48 Blood Culture - Preliminary
Blood/Venous Enterococcus faecalis
Gram Stain - Preliminary
06/14/24 20:29 Blood Culture - Final
Blood/Venous Enterococcus faecalis
Gram Stain - Final
06/14/24 09:55 Blood Culture - Final
Blood/Venous Enterococcus faecalis
Gram Stain - Final
06/14/24 15:34 Influenza Types A & B (PEPE) - Final
Nasal Swab Negative for Influenza A & B, NAAT
Negative results must be combined with clinical observations
and patient history.
Nucleic Acid Amplification test (NAAT)performed on the
[employer] platform.
06/12/24 04:28 MRSA Screen - Final
Nose No Methicillin Resistant Staphylococcus aureus isolated.
[2024-06-20 12:04] LABS: ALT (SGPT) 39 U/L (0-50); AST (SGOT) 34 U/L (17-59); Albumin 3.2 g/dl (3.5-5.0); Alkaline Phosphatase 60 U/L (38-126); Blood Urea Nitrogen 23 mg/dl (9-20); Calcium 8.2 mg/dl (8.4-10.2); Carbon Dioxide 27 mmol/L (22-30); Chloride 109 mmol/L (98-107); Estimated Creatinine Clearance 73 ml/min; Glucose 114 mg/dl (70-99); Potassium 3.9 mmol/L (3.5-5.1); Sodium 141 mmol/L (135-145); Total Bilirubin 0.7 mg/dl (0.2-1.3); Total Protein 5.5 g/dl (6.3-8.2); eGFR > 60.00
--- NOTE | 2024-06-20 12:59 | CON.ONC ---
Impression
Impression
Malignant thrombosis
MCA CVA on Xarelto
Multiple areas of thrombosis of indeterminate age including spleen, portal vein and pulmonary artery
Nonocclusive DVT
Plan
Plan
Thromboses in multiple locations of indeterminate age
Clear evidence of Xarelto failure with MCA CVA
Anticardiolipin antibody
Beta-2 glycoprotein antibody
Lupus anticoagulate
Consider alternate to Xarelto such as Lovenox or warfarin pending results of study
Will follow
Patient History
History of Present Illness
Patient is 74 years old male with past medical history of A-fib, sarcoidosis, CHF, COPD, VTE in the past, NITA, came into the hospital with sudden onset of left hemiparesis and was diagnosed with an acute R MCA ischemic infarct. He denied any chest
pain or shortness of breath. Denies fevers or chills recently. Denies nausea vomiting or diarrhea. Denies abdominal pain. In the ER, CT scan with no acute abnormality and he was not a candidate for TKN due to being on anticoagulant and also out
of the time window. Patient reported previous history of thrombosis. Ultrasound of the lower extremity indicates evidence of a nonocclusive deep vein thrombosis left common femoral vein indeterminate age. CT scan of the abdomen and pelvis
revealed evidence of splenic infarcts poor opacification of the portal vein raising concern for portal vein thrombosis and filling defect in the right main pulmonary artery suggestive for pulmonary embolus. Patient was taking outpatient Xarelto at
the time of his presentation.
Past-Medical/Surgical History
Past Medical History:
COPD
h/o PE 1983, 1999 Chronic Xarelto OAC Paroxysmal Afib
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
h/o syncope due to VT s/p shock x1 04/24/23
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
s/p Medtronic DC ICD placement 04/26/2023
Nonischemic Cardiomyopathy, EF 35-40% by echo 03/2023
Hypertension
Hyperlipidemia
PVCs
Morbid obesity
Previous daily ETOH use, but less now according to
Past Surgical History: Cardiac (s/p medtronic DC ICD 04/2023), Orthopedic (Left knee arthroscopy 2010, Right knee surgery 2017) and Other (Basal cell left ear 2020. Cataract extraction 2021. Melanoma excision right wrist 2023)
Social History
Tobacco: Former Smoker
Alcohol: Occasional (1 shot of whiskey 4 times a week)
Drug: None
Personal:
Living: With Family
Employment: Retired
Family History
Family History: CAD, Cancer, Hypertension and Other (pacemaker in father)
Patient Medication
�Medication �Instructions �Recorded �Confirmed �Last Taken �Type
atorvastatin 10 mg tablet 10 mg PO DAILY High Cholesterol 04/24/23 06/11/24 06/10/24 History
rivaroxaban 20 mg tablet (Xarelto) 20 mg PO HS Blood Clot 04/24/23 06/11/24 06/10/24 History
Prevention/Tx
vitamin B complex 1 tab PO DAILY Supplement 04/24/23 06/11/24 06/10/24 History
empagliflozin 10 mg tablet 10 mg PO DAILY HF #30 tabs 04/27/23 06/11/24 06/10/24 Rx
(Jardiance)
aflibercept 8 mg/0.07 mL 8 mg intravitreal Q4W Eye Condition 01/20/24 06/11/24 01/02/24 History
intravitreal solution for
injection (Eylea HD)
amiodarone 200 mg tablet (Pacerone) 200 mg PO DAILY VTach 01/20/24 06/11/24 06/10/24 History
peg 400-propylene glycol (PF) 0.4 1 drp BOTH EYES Q6HPRN PRN dry eyes 01/20/24 06/11/24 06/10/24 History
%-0.3 % eye drops in a dropperette
(Systane (PF))
sacubitril 24 mg-valsartan 26 mg 1 tab PO BID Heart Failure 01/20/24 06/11/24 06/10/24 History
tablet (Entresto)
spironolactone 25 mg tablet 12.5 mg PO DAILY Blood Pressure 01/20/24 06/11/24 06/10/24 History
sulfamethoxazole 400 1 tab PO DAILY Infection 01/20/24 06/11/24 06/10/24 History
mg-trimethoprim 80 mg tablet
(Bactrim)
therapeutic multivitamin 1 tab PO DAILY Supplement 01/20/24 06/11/24 06/10/24 History
acetaminophen 325 mg tablet 650 mg PO DAILYPRN PRN fever 06/11/24 06/11/24 06/11/24 History
(Tylenol)
carvedilol 6.25 mg tablet 6.25 mg PO BID Blood Pressure 06/11/24 06/11/24 06/10/24 History
fluticasone fur. 100 mcg-umeclid 1 inh inhalation R DAILY 06/11/24 06/11/24 06/10/24 History
62.5 mcg-vilant 25 mcg Lung/Breathing Issues
inhalat.powder (Trelegy Ellipta)
furosemide 20 mg tablet 20 mg PO DAILY Fluid 06/11/24 06/11/24 06/10/24 History
Retention/Swelling
pantoprazole 40 mg tablet,delayed 40 mg PO DAILY Gastrointestinal 06/11/24 06/11/24 06/10/24 History
release Issue
prednisone 20 mg tablet 30 mg PO DAILY ANTI-INFLAMMATION 06/11/24 06/11/24 06/10/24 History
tiotropium bromide 2.5 2 puff inhalation R DAILY 06/11/24 06/11/24 06/10/24 History
mcg/actuation mist for inhalation Lung/Breathing Issues
(Spiriva Respimat)
Active Medications
Generic Name Dose Route Start Last Admin
Trade Name Freq PRN Reason Stop Dose Admin
Acetaminophen 650 mg 06/11/24 14:20 06/14/24 13:23
Acetaminophen 325 Mg Tablet PO 07/09/24 14:19 650 mg
Q4HPRN PRN Administration
MOONEY, mild pain, or temp >100.4F
Albuterol/Ipratropium 3 ml 06/11/24 16:33
Ipratropium 0.5/Albuterol 3 Mg (3 Ml Ampul) INH
R Q4HPRN PRN
sob or wheezing
Protocol
Amiodarone HCl 200 mg 06/13/24 14:00 06/20/24 11:13
Amiodarone 200 Mg Tablet PO 07/11/24 13:59 200 mg
DAILY ROMAN Administration
Artificial Tears 1 drops 06/13/24 13:57 06/20/24 05:27
Artificial Tears Pf (Refresh) 10 Drop Droperette BOTH EYES 07/11/24 13:56 1 drops
Q6HPRN PRN Administration
dry eyes
Aspirin 81 mg 06/15/24 08:00 06/20/24 11:13
Aspirin 81 Mg Chewable Tablet PO 07/13/24 07:59 81 mg
DAILY ROMAN Administration
Atorvastatin Calcium 80 mg 06/15/24 18:00 06/19/24 18:04
Atorvastatin (Lipitor) 80 Mg Tablet PO 07/13/24 17:59 80 mg
QPM ROMAN Administration
Budesonide/Formoterol Fumarate 2 puff 06/13/24 20:00 06/20/24 07:57
Symbicort Inhaler 80/4.5 INH 07/11/24 19:59 2 puff
R BID ROMAN Administration
Protocol
Carvedilol 6.25 mg 06/13/24 20:00 06/20/24 11:13
Carvedilol 6.25 Mg Tablet PO 07/11/24 19:59 6.25 mg
BID ROMAN Administration
Ceftriaxone Sodium 2,000 mg 06/17/24 12:00 06/20/24 09:03
Ceftriaxone 2,000 Mg/20 Ml Vial IV 2,000 mg
Q12 ROMAN Administration
Dapagliflozin 10 mg 06/14/24 08:00 06/20/24 09:08
Dapagliflozin (Farxiga) 10 Mg Tablet PO 07/12/24 07:59 10 mg
DAILY ROMAN Administration
Dextrose 12.5 grams 06/11/24 16:32
Dextrose 50% (0.5 Grams/Ml) 50 Ml Syringe IV 07/09/24 16:31
[id number] PRN
hypoglycemia
Protocol
Folic Acid 1 mg 06/11/24 16:00 06/20/24 09:08
Folic Acid 1 Mg Tablet PO 07/09/24 15:59 1 mg
DAILY ROMAN Administration
Furosemide 20 mg 06/14/24 08:00 06/20/24 09:14
Furosemide 20 Mg Tablet PO 07/12/24 07:59 20 mg
DAILY ROMAN Administration
Glucagon 1 mg 06/11/24 16:32
Glucagon 1 Mg Vial IM 07/09/24 16:31
PRN PRN
hypoglycemia
Protocol
Folic Acid 1 mg/ Sodium 50.2 mls @ 200.8 mls/hr 06/11/24 15:30 06/11/24 17:12
Chloride IV 07/09/24 15:29 50.2 mls
DAILYPRN PRN Administration
if NPO
Ampicillin Sodium 2,000 mg/ 108 mls @ 108 mls/hr 06/16/24 14:00 06/20/24 11:10
Sodium Chloride IV 108 mls
Q4H ROMAN Administration
Lorazepam 1 mg 06/11/24 15:30
Lorazepam 1 Mg Tablet PO 07/09/24 15:29
Q2HPRN PRN
MSAS 5-7
Lorazepam 1 mg 06/11/24 15:30
Lorazepam 2 Mg/Ml Vial IV 07/09/24 15:29
Q1HPRN PRN
MSAS 8-11
Lorazepam 2 mg 06/11/24 15:30
Lorazepam 2 Mg/Ml Vial IV 07/09/24 15:29
Q1HPRN PRN
MSAS > 11
Metoprolol Tartrate 5 mg 06/11/24 15:33
Metoprolol 5 Mg/5 Ml Vial IV 07/09/24 15:32
Q6HPRN PRN
HR sustained >120
Miconazole Nitrate 0 applic 06/12/24 22:43 06/16/24 05:18
Miconazole Powder Bottle TOPICAL 07/10/24 22:42 1 applic
BIDPRN PRN Administration
PER PROTOCOL
Pantoprazole Sodium 40 mg 06/14/24 08:00 06/19/24 09:23
Pantoprazole 40 Mg Delayed Release Tablet PO 07/12/24 07:59 40 mg
DAILY ROMAN Administration
Prednisone 30 mg 06/14/24 08:00 06/20/24 09:09
Prednisone 20 Mg Tablet PO 07/12/24 07:59 30 mg
DAILY ROMAN Administration
Rivaroxaban 15 mg 06/20/24 08:00 06/20/24 09:08
Rivaroxaban 15 Mg Tablet PO 07/10/24 20:01 15 mg
Q12 ROMAN Administration
Rivaroxaban 20 mg 07/11/24 18:00
Rivaroxaban 20 Mg Tablet PO 08/08/24 17:59
QPM ROMAN
Sacubitril/Valsartan 1 tab 06/13/24 20:00 06/20/24 11:14
Sacubitril 24 Mg/Valsartan 26 Mg (Entresto) Tab PO 07/11/24 19:59 1 tab
BID ROMAN Administration
Sodium Chloride 0 ml 06/11/24 15:30
Sodium Chloride 0.9% (Preservative Free) 10 Ml Vial IV 07/09/24 15:29
PRN PRN
To dilute IV Ativan
Protocol
Sodium Chloride 0 flush 06/11/24 16:00 06/20/24 09:07
Sodium Chloride 0.9% (Flush) Syringe IV 07/09/24 15:59 1 flush
PER PROTOCOL ROMAN Administration
Spironolactone 12.5 mg 06/14/24 08:00 06/20/24 11:14
Spironolactone 12.5 Mg Dose (1/2 Of 25 Mg Tablet) PO 07/12/24 07:59 12.5 mg
DAILY ROMAN Administration
Sterile Water 20 ml 06/17/24 12:00 06/20/24 09:02
Sterile Water For Injection 20 Ml Vial IV 07/15/24 11:59 20 ml
Q12 ROMAN Administration
Tamsulosin HCl 0.4 mg 06/21/24 08:00
Tamsulosin 0.4 Mg Capsule PO 07/19/24 07:59
DAILY ROMAN
Thiamine HCl 100 mg 06/14/24 20:00 06/20/24 09:08
Thiamine 100 Mg Tablet PO 07/12/24 19:59 100 mg
BID ROMAN Administration
Tiotropium [place] 2 puff 06/13/24 14:00 06/20/24 07:57
Tiotropium (Spiriva Respimat) 2.5 Mcg Inhaler INH 07/11/24 13:59 2 puff
R DAILY ROMAN Administration
Protocol
Trimethoprim/Sulfamethoxazole 1 tablet 06/14/24 08:00 06/20/24 09:09
Sulfamethoxazole (400 Mg)/Trimethoprim (80 Mg) Tablet PO 1 tablet
DAILY ORMAN Administration
Review of Systems
-
12 point review of systems negative offered by for systems other than those reviewed in HPI
Physical Exam
-
GEN: Moments of lucidity
HEENT: EOMI, MMM
LUNGS: No rales or rhonchi
CV: Reg, S1/S2, no murmur
ABD: soft, BS+, NT, ND
EXT: No clubbing, cyanosis, lesions or edema B/L
NEURO: Gross non-focal
SKIN: Warm, dry and pink. No rash
Labs
Lab Results
WBC 11.5 10^3/uL (4.8-10.8) H 06/20/24 05:36
RBC 3.43 10^6/uL (4.70-6.10) L 06/20/24 05:36
Hgb 10.5 g/dL (13.0-18.0) L 06/20/24 05:36
Hct 32.6 % (39.0-52.0) L 06/20/24 05:36
MCV 95.0 fL (80.0-94.0) H 06/20/24 05:36
MCH 30.6 pg (27.0-31.0) 06/20/24 05:36
MCHC 32.2 g/dL (33.0-37.0) L 06/20/24 05:36
RDW 15.7 % (11.5-14.5) H 06/20/24 05:36
Plt Count 158 10^3/uL (130-400) 06/20/24 05:36
MPV 12.5 fL (7.4-10.4) H 06/20/24 05:36
Abs Immat Gran (auto) 0.6 10^3/uL (0-0.05) H 06/20/24 05:36
Absolute Neuts (auto) 9.8 10^3/uL (1.4-6.5) H 06/20/24 05:36
Absolute Lymphs (auto) 0.7 10^3/uL (1.2-3.4) L 06/20/24 05:36
Absolute Monos (auto) 0.3 10^3/uL (0.1-0.6) 06/20/24 05:36
Absolute Eos (auto) 0.0 10^3/uL (0-0.7) 06/20/24 05:36
Absolute Basos (auto) 0.0 10^3/uL (0-0.2) 06/20/24 05:36
Immature Gran % 5.6 % (0-0.5) H 06/20/24 05:36
Neutrophils % 85.2 % (42.2-75.2) H 06/20/24 05:36
Lymphocytes % 5.7 % (20.5-51.1) L 06/20/24 05:36
Monocytes % 3.0 % (1.7-9.3) 06/20/24 05:36
Eosinophils % 0.3 % (0-6) 06/20/24 05:36
Basophils % 0.2 % (0-2) 06/20/24 05:36
Creatinine 1.0 mg/dL (0.7-1.3) 06/20/24 11:17
Vital Signs
Vital Signs
Temp Pulse Resp BP Pulse Ox
97.3 F 62 14 104/61 96
06/20/24 03:18 06/20/24 10:47 06/20/24 10:47 06/20/24 10:47 06/20/24 10:20
--- NOTE | 2024-06-20 14:40 | W.PN.NEURO.1 ---
Today's Communication / Plan
-
Change from rivaroxaban to alternative anticoagulation as per Heme-Onc
Provide prochlorperazine for the patient's headache
Neuro Assessment/Plan
Assessment
Brain MRI showed acute posterior division of the R MCA ischemic infarct with no microhemorrhages or shift.
TTE-no evidence of intramural thrombus or PFO, ASA.
Routine EEG- right hemispheric slowing, no evidence of epileptiform abnormalities.
LDL�101, hemoglobin A1c�5.8, Pl 129.
Assessments:
Acute right MCA stroke, posterior to meningioma. Likely etiology�embolic.
Right frontal meningioma
Headache
Plan
Change from rivaroxaban to alternative anticoagulation as per Heme-Onc
Provide prochlorperazine for the patient's headache
Continue thiamine
No intervention needed for right frontal meningioma, repeat imaging in approximately 1 year to determine stability
Advance atorvastatin to 80 mg to ensure adequate coverage against elevated LDL, greater than 70
Will follow as needed
Subjective/Objective
Subjective Data
Date of Service: June 20, 2024
Objective Data
Vital Signs
Temp Pulse Resp BP Pulse Ox
36.3 C 64 20 121/70 96
06/20/24 03:18 06/20/24 14:00 06/20/24 14:00 06/20/24 12:00 06/20/24 14:00
Lab Results
06/20/24 05:36
06/20/24 11:17
APTT Cancelled 06/20/24 12:20
Sodium 141 mmol/L (135-145) 06/20/24 11:17
Potassium 3.9 mmol/L (3.5-5.1) 06/20/24 11:17
BUN 23 mg/dl (9-20) H 06/20/24 11:17
Glucose 114 mg/dl (70-99) H 06/20/24 11:17
Calcium 8.2 mg/dl (8.4-10.2) L 06/20/24 11:17
LDL Cholesterol, Calc 101 mg/dl 06/12/24 04:28
Patient Allergies
No Known Allergies Allergy (Verified 06/11/24 15:08)
Past History
Past History
ED Past Medical History: Arrthythmia (Paroxysmal atrial fibrillation), Cancer (Basal cell skin cancer), CHF, COPD, CVA (Right M2 ischemic stroke May 2024), GERD, HTN, Hypercholesterolemia and Other (Sarcoidosis, PE, meningioma right frontal)
ED Past Surgical History: Cardiac (Cardiac catheterization December 2014, nonocclusive CAD) and Orthopedic (Left knee)
Social History
Tobacco: Former smoker
Alcohol: Daily
Drug: None
Personal:
Living: with family
Employment: Retired
Family History
Family History: Hypertension
Medications
-
Medications:
Generic Name Dose Route Start Last Admin
Trade Name Freq PRN Reason Stop Dose Admin
Acetaminophen 650 mg 06/11/24 14:20 06/14/24 13:23
Acetaminophen 325 Mg Tablet PO 07/09/24 14:19 650 mg
Q4HPRN PRN Administration
MOONEY, mild pain, or temp >100.4F
Albuterol/Ipratropium 3 ml 06/11/24 16:33
Ipratropium 0.5/Albuterol 3 Mg (3 Ml Ampul) INH
R Q4HPRN PRN
sob or wheezing
Protocol
Amiodarone HCl 200 mg 06/13/24 14:00 06/20/24 11:13
Amiodarone 200 Mg Tablet PO 07/11/24 13:59 200 mg
DAILY ROMAN Administration
Artificial Tears 1 drops 06/13/24 13:57 06/20/24 05:27
Artificial Tears Pf (Refresh) 10 Drop Droperette BOTH EYES 07/11/24 13:56 1 drops
Q6HPRN PRN Administration
dry eyes
Aspirin 81 mg 06/15/24 08:00 06/20/24 11:13
Aspirin 81 Mg Chewable Tablet PO 07/13/24 07:59 81 mg
DAILY ROMAN Administration
Atorvastatin Calcium 80 mg 06/15/24 18:00 06/19/24 18:04
Atorvastatin (Lipitor) 80 Mg Tablet PO 07/13/24 17:59 80 mg
QPM ROMAN Administration
Budesonide/Formoterol Fumarate 2 puff 06/13/24 20:00 06/20/24 07:57
Symbicort Inhaler 80/4.5 INH 07/11/24 19:59 2 puff
R BID ROMAN Administration
Protocol
Carvedilol 6.25 mg 06/13/24 20:00 06/20/24 11:13
Carvedilol 6.25 Mg Tablet PO 07/11/24 19:59 6.25 mg
BID ROMAN Administration
Ceftriaxone Sodium 2,000 mg 06/17/24 12:00 06/20/24 09:03
Ceftriaxone 2,000 Mg/20 Ml Vial IV 2,000 mg
Q12 ROMAN Administration
Dapagliflozin 10 mg 06/14/24 08:00 06/20/24 09:08
Dapagliflozin (Farxiga) 10 Mg Tablet PO 07/12/24 07:59 10 mg
DAILY ROMAN Administration
Dextrose 12.5 grams 06/11/24 16:32
Dextrose 50% (0.5 Grams/Ml) 50 Ml Syringe IV 07/09/24 16:31
[id number] PRN
hypoglycemia
Protocol
Enoxaparin Sodium 90 mg 06/20/24 21:00
Enoxaparin Sodium 100 Mg/Ml Syringe SC 07/18/24 20:59
Q12 ROMAN
Folic Acid 1 mg 06/11/24 16:00 06/20/24 09:08
Folic Acid 1 Mg Tablet PO 07/09/24 15:59 1 mg
DAILY ROMAN Administration
Furosemide 20 mg 06/14/24 08:00 06/20/24 09:14
Furosemide 20 Mg Tablet PO 07/12/24 07:59 20 mg
DAILY ROMAN Administration
Glucagon 1 mg 06/11/24 16:32
Glucagon 1 Mg Vial IM 07/09/24 16:31
PRN PRN
hypoglycemia
Protocol
Folic Acid 1 mg/ Sodium 50.2 mls @ 200.8 mls/hr 06/11/24 15:30 06/11/24 17:12
Chloride IV 07/09/24 15:29 50.2 mls
DAILYPRN PRN Administration
if NPO
Ampicillin Sodium 2,000 mg/ 108 mls @ 108 mls/hr 06/16/24 14:00 06/20/24 11:10
Sodium Chloride IV 108 mls
Q4H ROMAN Administration
Lorazepam 1 mg 06/11/24 15:30
Lorazepam 1 Mg Tablet PO 07/09/24 15:29
Q2HPRN PRN
MSAS 5-7
Lorazepam 1 mg 06/11/24 15:30
Lorazepam 2 Mg/Ml Vial IV 07/09/24 15:29
Q1HPRN PRN
MSAS 8-11
Lorazepam 2 mg 06/11/24 15:30
Lorazepam 2 Mg/Ml Vial IV 07/09/24 15:29
Q1HPRN PRN
MSAS > 11
Metoprolol Tartrate 5 mg 06/11/24 15:33
Metoprolol 5 Mg/5 Ml Vial IV 07/09/24 15:32
Q6HPRN PRN
HR sustained >120
Miconazole Nitrate 0 applic 06/12/24 22:43 06/16/24 05:18
Miconazole Powder Bottle TOPICAL 07/10/24 22:42 1 applic
BIDPRN PRN Administration
PER PROTOCOL
Pantoprazole Sodium 40 mg 06/14/24 08:00 06/19/24 09:23
Pantoprazole 40 Mg Delayed Release Tablet PO 07/12/24 07:59 40 mg
DAILY ROMAN Administration
Prednisone 30 mg 06/14/24 08:00 06/20/24 09:09
Prednisone 20 Mg Tablet PO 07/12/24 07:59 30 mg
DAILY ROMAN Administration
Prochlorperazine Edisylate 10 mg 06/20/24 14:40
Prochlorperazine 10 Mg/2 Ml Vial IV 06/20/24 14:41
ONCE ONE
Sacubitril/Valsartan 1 tab 06/13/24 20:00 06/20/24 11:14
Sacubitril 24 Mg/Valsartan 26 Mg (Entresto) Tab PO 07/11/24 19:59 1 tab
BID ROMAN Administration
Sodium Chloride 0 ml 06/11/24 15:30
Sodium Chloride 0.9% (Preservative Free) 10 Ml Vial IV 07/09/24 15:29
PRN PRN
To dilute IV Ativan
Protocol
Sodium Chloride 0 flush 06/11/24 16:00 06/20/24 09:07
Sodium Chloride 0.9% (Flush) Syringe IV 07/09/24 15:59 1 flush
PER PROTOCOL ROMAN Administration
Spironolactone 12.5 mg 06/14/24 08:00 06/20/24 11:14
Spironolactone 12.5 Mg Dose (1/2 Of 25 Mg Tablet) PO 07/12/24 07:59 12.5 mg
DAILY ROMAN Administration
Sterile Water 20 ml 06/17/24 12:00 06/20/24 09:02
Sterile Water For Injection 20 Ml Vial IV 07/15/24 11:59 20 ml
Q12 ROMAN Administration
Tamsulosin HCl 0.4 mg 06/21/24 08:00
Tamsulosin 0.4 Mg Capsule PO 07/19/24 07:59
DAILY ROMAN
Thiamine HCl 100 mg 06/14/24 20:00 06/20/24 09:08
Thiamine 100 Mg Tablet PO 07/12/24 19:59 100 mg
BID ROMAN Administration
Tiotropium [place] 2 puff 06/13/24 14:00 06/20/24 07:57
Tiotropium (Spiriva Respimat) 2.5 Mcg Inhaler INH 07/11/24 13:59 2 puff
R DAILY ROMAN Administration
Protocol
Trimethoprim/Sulfamethoxazole 1 tablet 06/14/24 08:00 06/20/24 09:09
Sulfamethoxazole (400 Mg)/Trimethoprim (80 Mg) Tablet PO 1 tablet
DAILY ROMAN Administration
[2024-06-20] MEDS: COMPAZINE 10 MG IV (15:03)
[2024-06-20] MEDS: TYLENOL 650 MG PO (15:03)
[2024-06-20] MEDS: FLUSH (NSS) 2 FLUSH IV (15:04)
--- NOTE | 2024-06-20 15:45 | PTCARENOTE ---
Addendum entered by Serena Beatty RN 06/20/24 18:44:
Marroquin removed at 1530 today
Original Note:
Patient reporting right eye pressure/pain rating 5/10. Patient said it starting this morning. Dr. Wright notified and one time order for compazine. Medicated with tylenol and provided ice pack. Marroquin catheter removed s per MD order. Patient on
time and amount.
[2024-06-20] MEDS: LIPITOR 80 MG PO (17:57)
[2024-06-20] MEDS: LOVENOX 90 MG SC (21:12)
[2024-06-21] VITALS (14 sets, daily range): BP systolic 110–147; BP diastolic 69–86; PULSE 76; O2SAT 96; BMI 31.2
[2024-06-21] MEDS: TYLENOL 650 MG PO (00:29)
[2024-06-21] MEDS: AMPICILLIN 108 MG IV ×6 (02:26→21:54)
--- NOTE | 2024-06-21 04:13 | PTCARENOTE ---
Received pt at change of shift. NIH remains at 18. Pt due to void at 21:30. Pt unable to void and denies sensation to void. Bladder scanned pt for 521, straight cath for 650. Due to void again at 3:30; scanned for 488. Notified INSTRUMENTATION AND CONTROL TECHNICIAN of pt
inability to void. Order placed to insert new castillo. Pt tolerated well.
--- NOTE | 2024-06-21 04:18 | W.PN.UPDATE ---
Update Note
Progress Note Update
failed void trail, Acute retention, bladder scan 400-500, Denies any urge to void, no other complaints, no hematuria straight cathx1, will place Marroquin at present. May need Urologist to evaluate.
[2024-06-21 04:29] LABS: Hemoglobin 11.2 g/dL (13.0-18.0); Mean Corpuscular Hgb 30.2 pg (27.0-31.0); Mean Corpuscular Volume 94.3 fL (80.0-94.0); Mean Platelet Volume 11.7 fL (7.4-10.4); Platelet Count 157 10^3/uL (130-400); Red Blood Cell Count 3.71 10^6/uL (4.70-6.10); Red Cell Dist. Width 15.9 % (11.5-14.5); White Blood Cell Count 13.1 10^3/uL (4.8-10.8)
[2024-06-21 07:27] LABS: % Basophils 0.2 % (0-2); % Eosinophils 0.2 % (0-6); % Immature Granulocytes 5.6 % (0-0.5); % Lymphocytes 5.6 % (20.5-51.1); % Monocytes 3.2 % (1.7-9.3); % Neutrophils 85.2 % (42.2-75.2); Absolute Immature Granulocytes 0.7 10^3/uL (0-0.05); Absolute Lymphocytes 0.7 10^3/uL (1.2-3.4); Absolute Monocytes 0.4 10^3/uL (0.1-0.6); Absolute Neutrophils 11.2 10^3/uL (1.4-6.5); Nucleated Red Blood Cells % 0.2 % (-)
[2024-06-21] MEDS: SPIRIVA RESPIMAT 2.5 MCG 2 PUFF INH (08:37)
[2024-06-21] MEDS: SYMBICORT 80/4.5 MCG INHALER 2 PUFF INH ×2 (08:37→20:03)
--- NOTE | 2024-06-21 09:13 | W.PN.CARDCBS ---
Today's Communication / Plan
-
No changes from cardiac standpoint
Anticoagulation per hematology
Continue current cardiac regimen
We will arrange for follow-up and sign off, please call if questions
Impression / Plan
-
Primary Restaurant Recruiter: Dr. Fam
Dr. Ced Mora: ([facility]), phone [phone]
Impression:
Admitted with left sided weakness and possible CVA 06/11/24
Acute right MCA territory CVA with multiple, small scattered foci by MRI
Brain MRI showed acute posterior division of the R MCA ischemic infarct with no microhemorrhages or shift.
CTH 06/18/2024: subacute infarct in the distribution of the pericallosal branch of the right anterior cerebral artery with associated petechial hemorrhage similar to that seen on the prior study; 10 cm subacute right middle cerebral artery infarct
involving portions of the right temporal, parietal and occipital lobes with associated petechial hemorrhage at its anterior margin similar to that seen on the 06/14/2024 examination; Both infarcts are associated with mass effect with effacement of
the overlying sulci and approximately 2 mm shift of midline structures to the left
Pulmonary Embolus, distal right PA
seen on CT AB/Pel w/ IV contrast
TME
Dysphagia
EMEKA
Enterococcus bacteremia
Possible endocarditis
COPD
h/o PE 1999
Chronic Xarelto OAC
Paroxysmal Afib
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
h/o syncope due to VT s/p shock x1 04/24/23
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
s/p [employer] DC ICD placement 04/26/2023
Nonischemic Cardiomyopathy, EF 35-40% by echo 03/2023
Hypertension
Hyperlipidemia
PVCs
Morbid obesity
Previous daily ETOH use, but less now according to
Cardiac cath 04/25/2023: LM: Luminal Irregularities, Ramus: Normal, LCx: normal, RCA: LI, LVEF: 30% global HK and posterior basal HK. 1+MR
Cardiac MRI 04/26/2023: Severe thickening and transmural enhancement in the inferolateral and inferior whitten of the left ventricle c/w previous CT. Focal subendocardial enhancement 50 to 75% of myocardial thickness. Global LV HK.
[facility]increased metabolic activity at the left cardiac border/left ventricle, indicating active disease-sarcoidosis, which correlates with a cardiac MRI findings, hilar and mediastinal lymphadenopathy with increased
metabolic activity indicates active disease as well, cardiac SUV ranging 2.8-3/3, mediastinal, hilar SUV ranging 2.3-3.16 and right hilar lymph node, SUV 3.06, no abnormal pulmonary uptake
PET scan revealed myocardial involvement and mild hilar involvement but no pulmonary parenchymal involvement of sarcoidosis.
ECHO 09/2022: EF 45-50%, mild concentric LVH, focal calcification of anterior mitral valve leaflet, mild MR, trace TR, PAP 39 mmHg
ECHO 04/25/23: EF 35 to 40%, basal to mid inferior and inferolateral akinesis, mild global hypokinesis, stage I diastolic dysfunction, moderate eccentric MR, mild TR, PAP 26 to 31 mmHg, mildly dilated aortic root
ECHO 01/22/24: EF visually 35 to 40%, EF 40 to 45% by Dunbar's, inferior wall hypokinetic and basal inferolateral wall akinetic, mild LVH, ICD noted, mild to moderate MR, trace TR, PAP 30 to 35 mmHg, no significant change compared to prior echo
Echo 06/11/24: EF 50%, mild to mod conc LVH, stage I diastolic dysfunction, normal RV size and function, mild MR, mild TR
Echo 06/17/2024: Low normal LVEF estimated 50% with basal point lateral akinesis, normal RV, normal atria, mild MR, sclerotic aortic valve, no obvious visitation or change in valvular heart disease for technically difficult study.
Plan:
From a cardiac standpoint, he appears stable.
Currently, he is in sinus rhythm. Continue amiodarone. He has had no evidence of atrial fibrillation or DVT.
There is no overt evidence of endocarditis. At this point risk and benefit of transesophageal echo favors continued management without SARINA which would not manager talent management. Patient will require prolonged antibiotics in either event and is not a
candidate for surgical intervention.
Hematology is following and patient has failed Xarelto with a long history of both venous and arterial embolic events. Now on Lovenox. Will defer best long-term strategy for anticoagulation to hematology.
No evidence of heart failure on exam. EF is improved at 50% during this hospital stay. Continue furosemide 40 mg daily. Continue Farxiga 10 mg daily. Continue carvedilol. Continue Entresto 24/ and spironolactone. Continue amiodarone 200 mg
daily
He remains with a dense left hemiparesis/plegia
Management of endocarditis per infectious disease.
We will arrange for cardiac follow-up and sign off, please call if questions
Progress Note - Restaurant Recruiter
Subjective
Date of Service: June 21, 2024:
PMH/PSH:74-year-old man admitted with right MCA CVA 02/05/2024, pulmonary embolus, TME, enterococcal bacteremia, EMEKA
PMH: COPD, chronic history of pulmonary embolism, paroxysmal A-fib, systolic lordosis, syncope/VT/ICD 2022, nonobstructive CAD, nonischemic cardiomyopathy EF 35-40%, hypertension, hyperlipidemia, morbid obesity, history of EtOH
SH/FH: Reviewed
Allergies: None
Current meds: Folic acid, thiamine, carvedilol 6.25 twice daily, furosemide 20 mg a day, pantoprazole 40 mg a day, prednisone 30 mg daily, Bactrim, Spiriva, amiodarone 200 mg a day, Farxiga, Entresto 24/26 twice daily, spironolactone 12.5 mg a day,
Symbicort, aspirin 81 mg a day, atorvastatin 80 mg a day, ampicillin, ceftriaxone, tamsulosin 0.4 and therapeutic Lovenox 90 mg every 12
125/73, pulse 66, respirate 16, afebrile, intake and output -0.8 L, weight is 93.1 kg, which has been stable, on admit weight was 101 kg June 11
No distress, appears somewhat disheveled and slow to communicate, lungs are difficult to examine, regular rate and rhythm, no obvious murmurs, dense left hemiparesis/plegia, abdomen, not much edema, neck veins okay
White count 13.1, hemoglobin 11.2, platelets 157, BUN and creatinine are 23 and 1.0, potassium 3.9
Objective
Labs:
06/21/24 03:44
06/20/24 11:17
Labs
Hgb 11.2 g/dL (13.0-18.0) L 06/21/24 03:44
Hct 35.0 % (39.0-52.0) L 06/21/24 03:44
Plt Count 157 10^3/uL (130-400) 06/21/24 03:44
APTT Cancelled 06/20/24 12:20
Sodium 141 mmol/L (135-145) 06/20/24 11:17
Potassium 3.9 mmol/L (3.5-5.1) 06/20/24 11:17
BUN 23 mg/dl (9-20) H 06/20/24 11:17
Creatinine 1.0 mg/dL (0.7-1.3) 06/20/24 11:17
Glucose 114 mg/dl (70-99) H 06/20/24 11:17
Vital Signs and I&O:
Vital Signs
Temp Pulse Resp BP Pulse Ox
36.7 C 66 16 125/73 96
06/21/24 07:30 06/21/24 08:40 06/21/24 08:40 06/21/24 02:00 06/21/24 08:40
Vital Signs
Temp Pulse Resp BP Pulse Ox
36.7 C 66 16 125/73 96
06/21/24 07:30 06/21/24 08:40 06/21/24 08:40 06/21/24 02:00 06/21/24 08:40
Intake & Output
06/19/24 06/20/24 06/21/24 06/22/24
07:59 07:59 07:59 07:59
Intake Total 856 / 856 308 / 308 1404 / 1404
Output Total 2500 / 2500 1875 / 1875 2220 / 2220
Balance -1644 / -1644 -1567 / -1567 -816 / -816
Physical Exam
Physical Exam
See above
--- NOTE | 2024-06-21 09:17 | W.PN.HOSP.TC ---
Today's Communication/Plan
-
Pending neg Bcx
cont Abx
Assessment / Plan
Assessment / Plan
74yo M with PMhx of HTN, Afib, HLD, GERD, COPD, HFmrEF s/p ICD, chronic steroids, came with sudden onset of L hemiparesis, found acute R MCA embolic stroke and R SUE embolic stroke, bacteremia with E.faecalis with concern for endocarditis. ID
started Abx and recommended CT abd, that accidentally showed concern for PVT and pulmonary embolism. Restarted on anticoagulation as of 06/18/24 after neurology reviewed repeated CT - petechial hemorrhages are not contraindication to AC. Since CVA
on Xarelto - hematology advised Lovenox vs Warfarin. Thrombophilia workup also started. Pending neg Bcx for PICC to cont Abx for 6 weeks and after that to be on chronic suppression 2/2 presence of PPM. No initial source of infection found - needs
outpatient EGD and colonoscopy
A/P:
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
#R frontal meningioma 1.3cm
ASA, statin
Repeat MRI in 1 year, outpatient neuroSx consult
Xarelto initially stopped to avoid early bleeding transformation - advised to restart anticoagulation on 06/18/[address] head reviewed by neurologist
HgbA1c 5.8%
LDL 101
PT/OT and BEREAVEMENT COORDINATOR
#Bacteremia, concern for endocarditis
Enterococcus faecalis (ampicillin-sensitive) bacteremia, pending repeated neg Bcx for PICC
Possible endocarditis
Cardiology evaluated: repeat serial TTE since high risk for SARINA
ID consult - cont Abx (AMpicillin+Ceftriaxone), CT abd/pelvis without definite signs of the source, recommend outpatient EGD/COlonoscopy
#Possible pulmonary embolism within the visualized right main pulmonary artery
#Non-occlusive acute LLE DVT
#PVT thrombosis
Will start heparin anticoagulation as discussed with neurology - CT head repeated on 06/18/24 showed petechial hemorrhages due to known strokes, however those are not absolute contraindication for anticoagulation
Heparin drip completed - switched to lovenox as per landscape laborer advise. Thrombophilia eval ongoing
poor opacification of the portal vein, but findings raise concern for thrombosis involving the right portal vein
to be on anticoagulation, confirmed on US RUQ
#b/l atelectasis
incentive spirometry
#CT showed Stranding of the fat surrounding the gallbladder
#Small gall bladder polyps with sludge
concern for acute cholecystitis, however clinically no symptoms, LFT normal. US RUQ reasonable neg for cholecystitis
#Two focal splenic infarcts
Thromboembolic?
#Hematuria
#Acute urinary retention
now on Castillo
Hematuria 2/2 traumatic castillo, now resolved
TOV failed 06/20/24
Urology as outpatient for cystoscopy
#Small left adrenal gland mass, stable, likely an adenoma.
Right adrenal gland mass,
was not present on CT scan in 2008
Continued follow-up is recommended.
#Dysphagia
VSE passed, diet started
BEREAVEMENT COORDINATOR
#Acute metabolic encephalopathy
2/2 CVA
#EMEKA
resolved
follow Cr
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
#Afib, paroxysmal
#COPD not in exacerbation
#Sarcoidosis on chronic steroids
#Alcohol use d/o
cont home meds
THiamine/folate
Hold Xarelto as per neuro
#Mild thrombocytopenia, reactive
follow CBC
DVT ppx on hep
Full code
I have spent at least 37min reviewing chart, test results, communication with consultants and direct patient care
Anticipated Discharge: 24 - 48 hours
Subjective/Interval History
-
Date of Service: June 21, 2024
Objective Data
-
Labs:
Laboratory Results
06/21/24
03:44
WBC 13.1 H
Hgb 11.2 L
Hct 35.0 L
Plt Count 157
Vital Signs:
Vital Signs
Temp Pulse Resp BP Pulse Ox
98.0 F 66 16 125/73 96
06/21/24 07:30 06/21/24 08:40 06/21/24 08:40 06/21/24 02:00 06/21/24 08:40
I&O
06/20/24 06/21/24 06/22/24
06:59 06:59 06:59
Intake Total 308 / 308 1404 / 1404
Output Total 2175 / 2175 2220 / 2220
Balance -1867 / -1867 -816 / -816
Review of Systems
-
History Source: Patient
All other systems: Reviewed and negative
Physical Exam
-
General: No Apparent Distress
HEENT: Normocephalic, Atraumatic and Moist Mucous Membranes
Respiratory: Clear to Auscultation
Cardiac: Regular Rhythm
GI: Soft, Nontender and Nondistended
Neuro: Awake, Alert, Oriented and AO x 3
Psych: Calm
--- NOTE | 2024-06-21 09:24 | W.PN.ID1 ---
Date of Service
Date of Service: June 21, 2024
Today's Communication
- would follow another day on the current regimen and if blood cultures remain negative tomorrow place double lumen PICC line
- follow up in my clinic early july
Assessment / Plan
Enterococcal Bacteremia - sustained 06/14-06/16
Acute strokes right MCA
Probable Endocarditis
Splenic infarcts
Sarcoidosis
Immunosuppression on high dose steroids and PJP prophyalxis
Pacemaker
- 06/18 blood cultures x2 in progress no growth to date
- 06/16 blood cultures 1 of 2 sets: enterococcus
- 06/14 blood cultures x2 from two different draws both with enterococcus
- ua no pyuria, urine is not the source
- CT a/p with contrast: concern for PE, possible portal vein thrombus, two focal splenic infarcts, fat stranding seen around gallbladder but normal LFTs,
- eventual egd/colonoscopy recommended outpatient
- repeat echo 06/20: no significant change, no vegetations
- c/w ampicillin to 2 gm IV q4 hours
- c/w ceftriaxone 2 gm IV q12hrs
- plan at least 6 weeks of IV antibiotics (through jul 29) and then likely suppression given pacemaker
- continue bactrim (PJP ppx)
- would follow another day on the current regimen and if blood cultures remain negative tomorrow place double lumen PICC line
- follow up in my clinic early july
Chief Complaint
-: Bacteremia and Other (possible endocarditis)
Subjective / Review of Systems
afebrile
bp stable
no new complaints
Vital Signs / Physical Exam
Vital Signs
Vital Signs
Temp Pulse Resp BP Pulse Ox
98.0 F 66 16 125/73 96
06/21/24 07:30 06/21/24 08:40 06/21/24 08:40 06/21/24 02:00 06/21/24 08:40
Physical Exam
Constitutional: No Acute Distress
Cardiovascular: Regular Rate and S1/S2; Negative Murmur or Rub
Pulmonary: Clear and Symmetric; Negative Wheezes or Rales
Gastrointestinal: Soft, Non Tender, Non Distended and Normal Bowel Sounds
Skin: Warm and Dry; Negative Rash or Jaundice
Neurological: Other (dysarthria improving)
Objective Data
Lab Data
Lab Results
06/21/24 03:44
06/20/24 11:17
APTT Cancelled 06/20/24 12:20
Estimated Creat Clear 73 ml/min 06/20/24 11:17
Total Bilirubin 0.7 mg/dl (0.2-1.3) 06/20/24 11:17
AST 34 U/L (17-59) 06/20/24 11:17
ALT 39 U/L (0-50) 06/20/24 11:17
Alkaline Phosphatase 60 U/L (38-126) 06/20/24 11:17
Most recent labs reviewed.
Micro Results:
06/16/24 15:52 Blood Culture - Preliminary
Blood/Venous No Growth in 4 days- Final report to follow
06/18/24 12:46 Blood Culture - Preliminary
Blood/Venous No Growth in 48 hours- Final report to follow
06/18/24 12:38 Blood Culture - Preliminary
Blood/Venous No Growth in 48 hours- Final report to follow
06/16/24 15:48 Blood Culture - Preliminary
Blood/Venous Enterococcus faecalis
Gram Stain - Preliminary
06/14/24 20:29 Blood Culture - Final
Blood/Venous Enterococcus faecalis
Gram Stain - Final
06/14/24 09:55 Blood Culture - Final
Blood/Venous Enterococcus faecalis
Gram Stain - Final
06/14/24 15:34 Influenza Types A & B (PEPE) - Final
Nasal Swab Negative for Influenza A & B, NAAT
Negative results must be combined with clinical observations
and patient history.
Nucleic Acid Amplification test (NAAT)performed on the
[employer] platform.
06/12/24 04:28 MRSA Screen - Final
Nose No Methicillin Resistant Staphylococcus aureus isolated.
--- NOTE | 2024-06-21 09:47 | W.PN.ONC2 ---
Today's Communication / Plan
-
Anticardiolipin antibody pending
Beta-2 glycoprotein antibody pending
Lupus anticoagulate pending
Lovenox 1 mg/kg SQ BID
Impression
Impression
Malignant thrombosis
MCA CVA on Xarelto
Multiple areas of thrombosis of indeterminate age including spleen, portal vein and pulmonary artery
Nonocclusive DVT
Plan
Plan
Thromboses in multiple locations of indeterminate age
Clear evidence of Xarelto failure with MCA CVA
Anticardiolipin antibody pending
Beta-2 glycoprotein antibody pending
Lupus anticoagulate pending
Lovenox 1 mg/kg SQ BID now pending results of study. Can continue Lovenox ( comfortable with administration) or swich to warfarinf depending on results of hypercoag w/u.
Will follow
Subjective/Objective
Chief Complaint
ACS Heme Onc
Subjective
Weak and bedbound. Now on Lovenox.
Vital Signs:
Vital Signs
Temp Pulse Resp BP Pulse Ox
98.0 F 66 16 125/73 96
06/21/24 07:30 06/21/24 08:40 06/21/24 08:40 06/21/24 02:00 06/21/24 08:40
Lab Results:
Laboratory Data
WBC 13.1 10^3/uL (4.8-10.8) H 06/21/24 03:44
Hgb 11.2 g/dL (13.0-18.0) L 06/21/24 03:44
Plt Count 157 10^3/uL (130-400) 06/21/24 03:44
APTT Cancelled 06/20/24 12:20
eGFR > 60.00 06/20/24 11:17
[2024-06-21] MEDS: LOVENOX 90 MG SC ×2 (10:00→20:44)
[2024-06-21] MEDS: ROCEPHIN 2000 MG IV ×2 (10:00→20:44)
[2024-06-21] MEDS: FLUSH (NSS) 2 FLUSH IV (10:01)
[2024-06-21] MEDS: STERILE WATER FOR INJECTION 20 ML IV ×2 (10:01→20:44)
[2024-06-21] MEDS: FLOMAX 0.4 MG PO (10:02)
[2024-06-21] MEDS: LASIX 20 MG PO (10:02)
[2024-06-21] MEDS: PACERONE 200 MG PO (10:03)
[2024-06-21] MEDS: DELTASONE 30 MG PO (10:03)
[2024-06-21] MEDS: ALDACTONE 12.5 MG PO (10:04)
[2024-06-21] MEDS: COREG 6.25 MG PO ×2 (10:07→20:44)
[2024-06-21] MEDS: ENTRESTO 24 MG/26 MG 1 TAB PO ×2 (10:08→20:44)
--- NOTE | 2024-06-21 11:04 | CM ---
Patient with Dx CVA, bacteremia with concern for endocarditis, possible pulmonary embolism, non-occlusive acute LLE DVT. O2 3L.
Receiving IV Ampicillin, IV ceftriaxone. ST - Dysphagia diet. PT/OT recommend acute v skilled rehab.
Message from Dr Romero; scripts provided for IV Ampicillin, IV ceftriaxone. Scripts attached to [facility] referral for Mar[facility]. Per MD would follow blood cultures another day before placing PICC.
Spoke with [facility] Liaison; she is following this patient. They request [facility] to see him- will need order. They don't feel he is medically stable for [facility] at this time and they would like to see him do more in therapy. They are
willing to revisit this on Sunday 06/24.
Message to Dr Randall; [facility] requests [facility] - will need order.
Spoke with patient and ; provided update [facility] is following him and will let us know 06/24 if they can accept after he is seen by the geometrician.
Plan follow up with [facility] 06/24 for acceptance.
[2024-06-21] MEDS: FOLVITE 1 MG PO (11:51)
[2024-06-21] MEDS: PROTONIX 40 MG PO (11:51)
[2024-06-21] MEDS: VITAMIN B1 100 MG PO ×2 (11:51→20:44)
[2024-06-21] MEDS: BACTRIM 400 MG/80 MG 1 TABLET PO (11:51)
[2024-06-21] MEDS: LOW STRENGTH ASPIRIN 81 MG PO (11:51)
[2024-06-21] MEDS: FARXIGA 10 MG PO (11:51)
[2024-06-21] MEDS: FLUSH (NSS) 1 FLUSH IV ×2 (15:03→18:35)
--- NOTE | 2024-06-21 16:54 | CON.MR ---
Consultation
Consultation Request
Date/Time Consultation Performed: 06/21/24 1645
Performing Provider: Dr. Enriquez
Reason for Consultation: CVA
Medical History
-
Chief Complaint: CVA
History of Present Illness:
I had the opportunity to see Edgar Mariano in rehabilitation consultation today. Briefly, this is a 74-year-old male, admitted to the hospital on 06/11/24 with dysarthria, left sided weakness, sensory deficits. Apparently last known normal was
the night before. Does reportedly take Xarelto consistently, for atrial fibrillation. initial head, CT negative for any acute stroke or bleeding, but did have right frontal enhancing mass lesion felt to be meningioma. MRI of the brain and it did
show acute posterior division right MCA infarction.
Hospital course complicated with some petechial hemorrhages, but otherwise neurologically stable. Dense left hemiparesis. Did have bacterial sepsis, with enterococcus, concerned for endocarditis. Infectious disease consulted, has been on IV
antibiotics.
Also with non-occlusive acute LLE DVT, PVT thrombosis. Failure on Xarelto, hematology recommended Lovenox therapeutic.
Has had acute urinary retention, with Marroquin, hematuria with the traumatic Marroquin, but now resolved. Small left adrenal gland mass has noted, likely an adenoma. Seen by speech therapy, past videos, follow evaluation, started diet.
Patient seen at bedside this evening, with at bedside. Denies any current pain, no numbness. Does feel may be a little bit low back pain, that has been somewhat chronic for many weeks per the . No radiating symptoms. Denies any current
headache, dizziness. Seems quite somnolent, fatigue.
PMH: PA-fib anxiety alto, systemic sarcoidosis, chronic hypoxic respiratory insufficiency chronic HFrEF, ICM, VT, COPD,DLP, ambulatory dysfunction, EtOH addiction, history of PE, BMI 33. GIB, OA, right wrist melanoma, NITA
PSH: Bilateral cataract surgery, AICD, bilateral knee arthroscopy, mediastinoscopy
SH: , former smoker
[facility] but has 1st floor setup/in-law suite. Previously independent with cane, independent with ADLS
FH:HTN
Social History
Functional Level Premorbidity:
Independent for all activities - used cane prior.
Current Funct Level: Ambulation, Transfer, UE/LE Dressing:
Dependent bed mobility and transfers
Tobacco: Former Smoker
Alcohol: None
Drug: None
Personal:
Living: With Spouse
Number of Floors: 2
Potential First Floor Set Up: Yes
Allergies / Home Medications
Allergy/AdvReac Type Severity Reaction Status Date / Time
No Known Allergies Allergy Verified 06/11/24 15:08
�Medication �Instructions �Recorded �Confirmed �Last Taken �Type
atorvastatin 10 mg tablet 10 mg PO DAILY High Cholesterol 04/24/23 06/11/24 06/10/24 History
rivaroxaban 20 mg tablet (Xarelto) 20 mg PO HS Blood Clot 04/24/23 06/11/24 06/10/24 History
Prevention/Tx
vitamin B complex 1 tab PO DAILY Supplement 04/24/23 06/11/24 06/10/24 History
empagliflozin 10 mg tablet 10 mg PO DAILY HF #30 tabs 04/27/23 06/11/24 06/10/24 Rx
(Jardiance)
aflibercept 8 mg/0.07 mL 8 mg intravitreal Q4W Eye Condition 01/20/24 06/11/24 01/02/24 History
intravitreal solution for
injection (Eylea HD)
amiodarone 200 mg tablet (Pacerone) 200 mg PO DAILY VTach 01/20/24 06/11/24 06/10/24 History
peg 400-propylene glycol (PF) 0.4 1 drp BOTH EYES Q6HPRN PRN dry eyes 01/20/24 06/11/24 06/10/24 History
%-0.3 % eye drops in a dropperette
(Systane (PF))
sacubitril 24 mg-valsartan 26 mg 1 tab PO BID Heart Failure 01/20/24 06/11/24 06/10/24 History
tablet (Entresto)
spironolactone 25 mg tablet 12.5 mg PO DAILY Blood Pressure 01/20/24 06/11/24 06/10/24 History
sulfamethoxazole 400 1 tab PO DAILY Infection 01/20/24 06/11/24 06/10/24 History
mg-trimethoprim 80 mg tablet
(Bactrim)
therapeutic multivitamin 1 tab PO DAILY Supplement 01/20/24 06/11/24 06/10/24 History
acetaminophen 325 mg tablet 650 mg PO DAILYPRN PRN fever 06/11/24 06/11/24 06/11/24 History
(Tylenol)
carvedilol 6.25 mg tablet 6.25 mg PO BID Blood Pressure 06/11/24 06/11/24 06/10/24 History
fluticasone fur. 100 mcg-umeclid 1 inh inhalation R DAILY 06/11/24 06/11/24 06/10/24 History
62.5 mcg-vilant 25 mcg Lung/Breathing Issues
inhalat.powder (Trelegy Ellipta)
furosemide 20 mg tablet 20 mg PO DAILY Fluid 06/11/24 06/11/24 06/10/24 History
Retention/Swelling
pantoprazole 40 mg tablet,delayed 40 mg PO DAILY Gastrointestinal 06/11/24 06/11/24 06/10/24 History
release Issue
prednisone 20 mg tablet 30 mg PO DAILY ANTI-INFLAMMATION 06/11/24 06/11/24 06/10/24 History
tiotropium bromide 2.5 2 puff inhalation R DAILY 06/11/24 06/11/24 06/10/24 History
mcg/actuation mist for inhalation Lung/Breathing Issues
(Spiriva Respimat)
Review Of Systems
-
History Source: Patient
All other systems: Negative unless noted
Constitutional: Reports Fatigue
Eye: Reports No Symptoms
EENT: Reports No Symptoms
Respiratory: Reports No Symptoms
Cardiac: Reports No Symptoms
Abdomen/GI: Reports No Symptoms
: Reports Difficulty Voiding
Musculoskeletal: Reports Muscle Pain (Back pain)
Neurological: Reports Weakness and Numbness
Psych: Reports No Symptoms
Endocrine: Reports No Symptoms
Hematologic/Lymphatic: Reports No Symptoms
Immunology: Reports No Symptoms
Physical Exam
Active Medications
Generic Name Dose Route Start Last Admin
Trade Name Freq PRN Reason Stop Dose Admin
Acetaminophen 650 mg 06/11/24 14:20 06/21/24 00:29
Acetaminophen 325 Mg Tablet PO 07/09/24 14:19 650 mg
Q4HPRN PRN Administration
MOONEY, mild pain, or temp >100.4F
Albuterol/Ipratropium 3 ml 06/11/24 16:33
Ipratropium 0.5/Albuterol 3 Mg (3 Ml Ampul) INH
R Q4HPRN PRN
sob or wheezing
Protocol
Amiodarone HCl 200 mg 06/13/24 14:00 06/21/24 10:03
Amiodarone 200 Mg Tablet PO 07/11/24 13:59 200 mg
DAILY ROMAN Administration
Artificial Tears 1 drops 06/13/24 13:57 06/20/24 05:27
Artificial Tears Pf (Refresh) 10 Drop Droperette BOTH EYES 07/11/24 13:56 1 drops
Q6HPRN PRN Administration
dry eyes
Aspirin 81 mg 06/15/24 08:00 06/21/24 11:51
Aspirin 81 Mg Chewable Tablet PO 07/13/24 07:59 81 mg
DAILY ROMAN Administration
Atorvastatin Calcium 80 mg 06/15/24 18:00 06/20/24 17:57
Atorvastatin (Lipitor) 80 Mg Tablet PO 07/13/24 17:59 80 mg
QPM ROMAN Administration
Budesonide/Formoterol Fumarate 2 puff 06/13/24 20:00 06/21/24 08:37
Symbicort Inhaler 80/4.5 INH 07/11/24 19:59 2 puff
R BID ROMAN Administration
Protocol
Carvedilol 6.25 mg 06/13/24 20:00 06/21/24 10:07
Carvedilol 6.25 Mg Tablet PO 07/11/24 19:59 6.25 mg
BID ROMAN Administration
Ceftriaxone Sodium 2,000 mg 06/17/24 12:00 06/21/24 10:00
Ceftriaxone 2,000 Mg/20 Ml Vial IV 2,000 mg
Q12 ROMAN Administration
Dapagliflozin 10 mg 06/14/24 08:00 06/21/24 11:51
Dapagliflozin (Farxiga) 10 Mg Tablet PO 07/12/24 07:59 10 mg
DAILY ROMAN Administration
Dextrose 12.5 grams 06/11/24 16:32
Dextrose 50% (0.5 Grams/Ml) 50 Ml Syringe IV 07/09/24 16:31
[id number] PRN
hypoglycemia
Protocol
Enoxaparin Sodium 90 mg 06/20/24 21:00 06/21/24 10:00
Enoxaparin Sodium 100 Mg/Ml Syringe SC 07/18/24 20:59 90 mg
Q12 ROMAN Administration
Folic Acid 1 mg 06/11/24 16:00 06/21/24 11:51
Folic Acid 1 Mg Tablet PO 07/09/24 15:59 1 mg
DAILY ROMAN Administration
Furosemide 20 mg 06/14/24 08:00 06/21/24 10:02
Furosemide 20 Mg Tablet PO 07/12/24 07:59 20 mg
DAILY ROMAN Administration
Glucagon 1 mg 06/11/24 16:32
Glucagon 1 Mg Vial IM 07/09/24 16:31
PRN PRN
hypoglycemia
Protocol
Folic Acid 1 mg/ Sodium 50.2 mls @ 200.8 mls/hr 06/11/24 15:30 06/11/24 17:12
Chloride IV 07/09/24 15:29 50.2 mls
DAILYPRN PRN Administration
if NPO
Ampicillin Sodium 2,000 mg/ 108 mls @ 108 mls/hr 06/16/24 14:00 06/21/24 15:03
Sodium Chloride IV 108 mls
Q4H ROMAN Administration
Metoprolol Tartrate 5 mg 06/11/24 15:33
Metoprolol 5 Mg/5 Ml Vial IV 07/09/24 15:32
Q6HPRN PRN
HR sustained >120
Miconazole Nitrate 0 applic 06/12/24 22:43 06/16/24 05:18
Miconazole Powder Bottle TOPICAL 07/10/24 22:42 1 applic
BIDPRN PRN Administration
PER PROTOCOL
Pantoprazole Sodium 40 mg 06/14/24 08:00 06/21/24 11:51
Pantoprazole 40 Mg Delayed Release Tablet PO 07/12/24 07:59 40 mg
DAILY ROMAN Administration
Prednisone 30 mg 06/14/24 08:00 06/21/24 10:03
Prednisone 20 Mg Tablet PO 07/12/24 07:59 30 mg
DAILY ROMAN Administration
Sacubitril/Valsartan 1 tab 06/13/24 20:00 06/21/24 10:08
Sacubitril 24 Mg/Valsartan 26 Mg (Entresto) Tab PO 07/11/24 19:59 1 tab
BID ROMAN Administration
Sodium Chloride 0 flush 06/11/24 16:00 06/21/24 15:03
Sodium Chloride 0.9% (Flush) Syringe IV 07/09/24 15:59 1 flush
PER PROTOCOL ROMAN Administration
Spironolactone 12.5 mg 06/14/24 08:00 06/21/24 10:04
Spironolactone 12.5 Mg Dose (1/2 Of 25 Mg Tablet) PO 07/12/24 07:59 12.5 mg
DAILY ROMAN Administration
Sterile Water 20 ml 06/17/24 12:00 06/21/24 10:01
Sterile Water For Injection 20 Ml Vial IV 07/15/24 11:59 20 ml
Q12 ROMAN Administration
Tamsulosin HCl 0.4 mg 06/21/24 08:00 06/21/24 10:02
Tamsulosin 0.4 Mg Capsule PO 07/19/24 07:59 0.4 mg
DAILY ROMAN Administration
Thiamine HCl 100 mg 06/14/24 20:00 06/21/24 11:51
Thiamine 100 Mg Tablet PO 07/12/24 19:59 100 mg
BID ROMAN Administration
Tiotropium [place] 2 puff 06/13/24 14:00 06/21/24 08:37
Tiotropium (Spiriva Respimat) 2.5 Mcg Inhaler INH 07/11/24 13:59 2 puff
R DAILY ROMAN Administration
Protocol
Trimethoprim/Sulfamethoxazole 1 tablet 06/14/24 08:00 06/21/24 11:51
Sulfamethoxazole (400 Mg)/Trimethoprim (80 Mg) Tablet PO 1 tablet
DAILY ROMAN Administration
Vital Signs
Temp Pulse Resp BP Pulse Ox
99.1 F 70 18 128/76 96
06/21/24 13:49 06/21/24 15:09 06/21/24 15:09 06/21/24 15:09 06/21/24 15:09
Height 5 ft 8 in
Actual Weight 93.1 kg
Body Mass Index (BMI) 31.2
Physical Exam
Physical Exam:
On examination, well developed, well-nourished, male, no acute distress, but is somnolent. Does open eyes to command, decent tracking, but some left sided in attention. Maybe neglect. Left sided facial weakness and cranial nerve weakness on the
left. No nystagmus. Chest clear, Good breath sounds. No murmur. No abdominal tenderness regarding.
Left upper and left lower hemiplegia. No active movement. Flaccid tone, no pain with passive range of motion, the shoulder elbow or hand on the left. And the lower limb, no significant tone. But no active movement at the hip. Had some involuntary
movement occasionally at the left ankle. But not to command. No captains, negative homes. Good pulses.
Right sided arm, leg, seems full strength. Able to do leg lift in bed on the right side. Babinski negative bilaterally. No clonus
Lab Results
06/21/24 03:44
06/20/24 11:17
WBC 13.1 10^3/uL (4.8-10.8) H 06/21/24 03:44
Hgb 11.2 g/dL (13.0-18.0) L 06/21/24 03:44
Hct 35.0 % (39.0-52.0) L 06/21/24 03:44
MCV 94.3 fL (80.0-94.0) H 06/21/24 03:44
Plt Count 157 10^3/uL (130-400) 06/21/24 03:44
Sodium 141 mmol/L (135-145) 06/20/24 11:17
Potassium 3.9 mmol/L (3.5-5.1) 06/20/24 11:17
Chloride 109 mmol/L (98-107) H 06/20/24 11:17
Carbon Dioxide 27 mmol/L (22-30) 06/20/24 11:17
BUN 23 mg/dl (9-20) H 06/20/24 11:17
Creatinine 1.0 mg/dL (0.7-1.3) 06/20/24 11:17
eGFR > 60.00 06/20/24 11:17
Glucose 114 mg/dl (70-99) H 06/20/24 11:17
Hemoglobin A1c 5.8 % (4.0-5.6) H 06/11/24 14:37
Calcium 8.2 mg/dl (8.4-10.2) L 06/20/24 11:17
Magnesium 2.1 mg/dl (1.6-2.3) 06/14/24 04:59
Total Bilirubin 0.7 mg/dl (0.2-1.3) 06/20/24 11:17
AST 34 U/L (17-59) 06/20/24 11:17
ALT 39 U/L (0-50) 06/20/24 11:17
Alkaline Phosphatase 60 U/L (38-126) 06/20/24 11:17
Total Protein 5.5 g/dl (6.3-8.2) L 06/20/24 11:17
Albumin 3.2 g/dl (3.5-5.0) L 06/20/24 11:17
Diagnostic Results
As per HPI.
Comorbidities / Impairment Group
Comorbidities:
Sepsis, HTN
Impairment Group:
CVA L hemiplegia
Assessment / Plan
Plan
Assessment:
74 year old male wtih CVA, L dense hemiparesis/hemiplegia
PM&R PT/OT to increase independence with ADLs, improve balance, coordination, endurance, strength, mobility, community reintegration, decreased burden of care on others and family education.
CVA: Secondary prophylaxis with aspirin, statin, and blood pressure control (SBP less than 180 and diastolic less than 100 to participate with therapy for ischemic stroke). Continue to monitor neurologic status.
Left nondominant hemiparesis: High risk for falls and sliding out of chair/bed. Safety reinforced.
- Avoid using affected arm to help lift or pull patient as this will cause trauma to the shoulder.
Left Neglect/Inattention: makes patient at increased risk for falls. Will need therapy to work on scanning of environment for safe navigation.
Dysphagia: speech therapy, Cleared video swallow - Advance diet as tolerated.
Dysarthria: speech evaluation
HTN: continue coreg, lasix, valsartan, monitor closely
HLD: Statin
Atrial fibrillation: On amiodarone, previously on xarelto now switched to lovenox
DM II: Faxiga
Bacteremia: ID following - on IV antibiotics. Sounds like will need PICC and continued ampicillin and ceftriaxone.
Lower extremity DVT: Switched to lovenox per hematology
Skin: monitor for pressure sores/rashes/lesions.
Pain: acetaminophen as needed.
Bowel: Colace and Senna, PRN bisacodyl.
Bladder: Time void, PVRs, PRN straight cath.
DVT Prophylaxis: On lovenox
Pulmonary: Incentive spirometry
Safety: Continue to reinforce assistance with all transfers.
Code Status: Full code
Dispo (date/plan/equipment needs): Eventual home with family care. Social history reviewed.
Functional and Medical Goals: Modified Independent with ADL�s, ambulation, transfers
Summary
-
Things that must be addressed in Hospital prior to discharge:
1. Please Continue PT/OT.
2. Please continue speech therapy.
3. Blood pressure must be less than 180 systolic and 100 diastolic for 24 hours before being stable for transfer to SNF/acute rehab.
4. Please give blood pressure parameters for participation in therapy program.
Discharge Destination: to be determined
Summary of recommendations:
- Discharge Destination: Will follow up next week/monday to re-assess
-Patient with significant fatigue presently, somnolent. Dependent for bed mobility and transfers currently
- May do better with initial SNF/subacute rehab, and may not be able to tolerate 3hrs/therapies a day for acute rehab. But will see how he does with therapy over the weekend and next week and if improved tolerance, alertness and participation,
could consider acute level rehab program.
Will continue to follow patient. Dr Richardson will be back on Monday and can re-evaluate progress with bedside therapy program.
Thank you for allowing me to care for your patient. Please contact me with any questions or concerns.
Comments
-
This note was dictated using a voice recognition system. Please excuse any typographical errors from produce manager. If you believe there are any discrepancies, please notify our office.
[2024-06-21] MEDS: LIPITOR 80 MG PO (18:34)
--- NOTE | 2024-06-21 18:44 | PTCARENOTE ---
Patient alert and oriented speech slow and slurred with some intermittent expressive aphagia. NIH score remains. Appetite has improved. Patient sat at edge of bed with pt/ot. Marroquin catheter for acute urinary retention. vs stable.
[2024-06-21] MEDS: REFRESH EYE DROPS (PF) 1 DROPS BOTH EYES (20:44)
[2024-06-22] VITALS (13 sets, daily range): BP systolic 90–129; BP diastolic 57–79; PULSE 60; O2SAT 95; BMI 31.1
[2024-06-22] MEDS: AMPICILLIN 108 MG IV ×6 (02:48→20:34)
--- NOTE | 2024-06-22 03:57 | PTCARENOTE ---
Left sided hemiparesis unchanged. NSR/a-paced on tele. 3L NC in place (pt wears 2L HS per the ). Ice pack and eye drops given for right eye discomfort. NIHS assessment documented per the worklist. Incont BM. Marroquin draining clear yellow urine at
bedside. Turned Q2 hours, heels floated. SCDs on. Swallowed meds crushed in mildly thickened cranberry juice; encouraged pt to slow down when drinking through a straw as he coughed after almost drinking the whole glass. Pt appreciative of care. Call
marquez within reach. Able to use right hand and arm to utilize call marquez/remote.
[2024-06-22] MEDS: SPIRIVA RESPIMAT 2.5 MCG 2 PUFF INH (07:36)
[2024-06-22] MEDS: SYMBICORT 80/4.5 MCG INHALER 2 PUFF INH ×2 (07:36→19:26)
[2024-06-22] MEDS: TYLENOL 650 MG PO (08:29)
[2024-06-22] MEDS: FARXIGA 10 MG PO (08:30)
[2024-06-22] MEDS: ALDACTONE 12.5 MG PO (08:30)
[2024-06-22] MEDS: COREG 6.25 MG PO ×2 (08:30→20:32)
[2024-06-22] MEDS: ENTRESTO 24 MG/26 MG 1 TAB PO ×2 (08:30→20:32)
[2024-06-22] MEDS: PACERONE 200 MG PO (08:31)
[2024-06-22] MEDS: LASIX 20 MG PO (08:31)
[2024-06-22] MEDS: FLOMAX 0.4 MG PO (08:31)
[2024-06-22] MEDS: LOVENOX 90 MG SC ×2 (08:31→20:28)
[2024-06-22] MEDS: FOLVITE 1 MG PO (08:31)
[2024-06-22] MEDS: LOW STRENGTH ASPIRIN 81 MG PO (08:31)
[2024-06-22] MEDS: VITAMIN B1 100 MG PO ×2 (08:32→20:32)
[2024-06-22] MEDS: PROTONIX 40 MG PO (08:32)
[2024-06-22] MEDS: BACTRIM 400 MG/80 MG 1 TABLET PO (08:32)
[2024-06-22] MEDS: ROCEPHIN 2000 MG IV ×2 (08:33→20:31)
[2024-06-22] MEDS: STERILE WATER FOR INJECTION 20 ML IV ×2 (08:33→20:30)
[2024-06-22] MEDS: DELTASONE 30 MG PO (08:37)
--- NOTE | 2024-06-22 09:25 | W.PN.HOSP.TC ---
Today's Communication/Plan
-
PICC next 24h if repeated Bcx neg
cont Abx
[facility] to reeval on Mon
Assessment / Plan
Assessment / Plan
74yo M with PMhx of HTN, Afib, HLD, GERD, COPD, HFmrEF s/p ICD, chronic steroids, came with sudden onset of L hemiparesis, found acute R MCA embolic stroke and R SUE embolic stroke, bacteremia with E.faecalis with concern for endocarditis. ID
started Abx and recommended CT abd, that accidentally showed concern for PVT and pulmonary embolism. Restarted on anticoagulation as of 06/18/24 after neurology reviewed repeated CT - petechial hemorrhages are not contraindication to AC. Since CVA
on Xarelto - hematology advised Lovenox vs Warfarin. Thrombophilia workup also started. Pending neg Bcx for PICC to cont Abx for 6 weeks and after that to be on chronic suppression 2/2 presence of PPM. No initial source of infection found - needs
outpatient EGD and colonoscopy
A/P:
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
#R frontal meningioma 1.3cm
ASA, statin
Repeat MRI in 1 year, outpatient neuroSx consult
Xarelto initially stopped to avoid early bleeding transformation - advised to restart anticoagulation on 06/18/[address] head reviewed by neurologist
HgbA1c 5.8%
LDL 101
PT/OT and [facility] BRAN[facility]
#Bacteremia, concern for endocarditis
Enterococcus faecalis (ampicillin-sensitive) bacteremia, pending repeated neg Bcx for PICC
Possible endocarditis
Cardiology evaluated: repeat serial TTE since high risk for SARINA
ID consult - cont Abx (Ampicillin+Ceftriaxone), CT abd/pelvis without definite signs of the source, recommend outpatient EGD/Colonoscopy
#Possible pulmonary embolism within the visualized right main pulmonary artery
#Non-occlusive acute LLE DVT
#PVT thrombosis
Will start heparin anticoagulation as discussed with neurology - CT head repeated on 06/18/24 showed petechial hemorrhages due to known strokes, however those are not absolute contraindication for anticoagulation
Heparin drip completed - switched to lovenox as per manager epic advise. Thrombophilia eval ongoing
poor opacification of the portal vein, but findings raise concern for thrombosis involving the right portal vein
to be on anticoagulation, confirmed on US RUQ
#b/l atelectasis
incentive spirometry
#CT showed Stranding of the fat surrounding the gallbladder
#Small gall bladder polyps with sludge
concern for acute cholecystitis, however clinically no symptoms, LFT normal. US RUQ reasonable neg for cholecystitis
#Two focal splenic infarcts
Thromboembolic?
#Hematuria
#Acute urinary retention
now on Castillo
Hematuria 2/2 traumatic castillo, now resolved
TOV failed 06/20/24
Urology as outpatient for cystoscopy
#Small left adrenal gland mass, stable, likely an adenoma.
Right adrenal gland mass,
was not present on CT scan in 2008
Continued follow-up is recommended.
#Dysphagia
VSE passed, diet started
[facility]
#Acute metabolic encephalopathy
2/2 CVA
#EMEKA
resolved
follow Cr
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
#Afib, paroxysmal
#COPD not in exacerbation
#Sarcoidosis on chronic steroids
#Alcohol use d/o
cont home meds
THiamine/folate
#Mild thrombocytopenia, reactive
follow CBC
DVT ppx on lovenox therapeutic
Full code
I have spent at least 37min reviewing chart, test results, communication with consultants and direct patient care
Anticipated Discharge: > 48 hours
Subjective/Interval History
-
Date of Service: June 22, 2024
Objective Data
-
Vital Signs:
Vital Signs
Temp Pulse Resp BP Pulse Ox
98.6 F 66 17 115/73 92
06/22/24 08:28 06/22/24 08:00 06/22/24 08:00 06/22/24 08:00 06/22/24 08:27
I&O
06/21/24 06/22/24 06/23/24
06:59 06:59 06:59
Intake Total 1404 / 1404 1740 / 1740
Output Total 2220 / 2220 2275 / 2275
Balance -816 / -816 -535 / -535
Review of Systems
-
History Source: Patient
All other systems: Reviewed and negative
Physical Exam
-
General: No Apparent Distress
HEENT: Normocephalic
Respiratory: Clear to Auscultation
Cardiac: Regular Rhythm
Neuro: Awake, Alert, No Motor Deficits and Other (L hemiparesis, dysarhtria unchanged)
Psych: Calm
--- NOTE | 2024-06-22 15:21 | W.PN.ID1 ---
Date of Service
Date of Service: June 22, 2024
Today's Communication
Continue antibiotics.
Assessment / Plan
Enterococcal Bacteremia - sustained 06/14-06/16
Acute strokes right MCA
Suspected endocarditis
Splenic infarcts
Sarcoidosis
Immunosuppression on high dose steroids and PJP prophyalxis
Pacemaker
- 06/18 blood cultures x2 in progress no growth to date
- 06/16 blood cultures 1 of 2 sets: enterococcus
- 06/14 blood cultures x2 from two different draws both with enterococcus
- ua no pyuria, urine is not the source
- CT a/p with contrast: concern for PE, possible portal vein thrombus, two focal splenic infarcts, fat stranding seen around gallbladder but normal LFTs,
- eventual egd/colonoscopy recommended outpatient
- repeat echo 06/20: no significant change, no vegetations
- c/w ampicillin to 2 gm IV q4 hours
- c/w ceftriaxone 2 gm IV q12hrs
- plan at least 6 weeks of IV antibiotics (through jul 29) and then likely suppression given pacemaker
- continue bactrim (PJP ppx)
With negative blood cultures, can place PICC line.
Chief Complaint
-: Bacteremia and Other (possible endocarditis)
Subjective / Review of Systems
Review of Systems: No Fever and No Chills
Vital Signs / Physical Exam
Vital Signs
Vital Signs
Temp Pulse Resp BP Pulse Ox
98.0 F 68 20 109/68 95
06/22/24 14:08 06/22/24 14:06 06/22/24 14:06 06/22/24 14:06 06/22/24 14:08
Physical Exam
Constitutional: No Acute Distress
Eyes: No Conjunctival Hemorrhage and Sclera Anicteric
Cardiovascular: Regular Rate and S1/S2
Pulmonary: Clear and Symmetric; Negative Wheezes or Rales
Gastrointestinal: Soft, Non Tender, Non Distended and Normal Bowel Sounds
Skin: Warm and Dry; Negative Rash or Jaundice
Objective Data
Lab Data
Lab Results
06/21/24 03:44
06/20/24 11:17
APTT Cancelled 06/20/24 12:20
Estimated Creat Clear 73 ml/min 06/20/24 11:17
Total Bilirubin 0.7 mg/dl (0.2-1.3) 06/20/24 11:17
AST 34 U/L (17-59) 06/20/24 11:17
ALT 39 U/L (0-50) 06/20/24 11:17
Alkaline Phosphatase 60 U/L (38-126) 06/20/24 11:17
Most recent labs reviewed.
Micro Results:
06/18/24 12:46 Blood Culture - Preliminary
Blood/Venous No Growth in 4 days- Final report to follow
06/18/24 12:38 Blood Culture - Preliminary
Blood/Venous No Growth in 4 days- Final report to follow
06/16/24 15:52 Blood Culture - Final
Blood/Venous No Growth - Final Report
06/14/24 09:55 Blood Culture - Final
Blood/Venous Enterococcus faecalis
Gram Stain - Final
06/16/24 15:48 Blood Culture - Preliminary
Blood/Venous Enterococcus faecalis
Gram Stain - Preliminary
06/14/24 20:29 Blood Culture - Final
Blood/Venous Enterococcus faecalis
Gram Stain - Final
06/14/24 15:34 Influenza Types A & B (PEPE) - Final
Nasal Swab Negative for Influenza A & B, NAAT
Negative results must be combined with clinical observations
and patient history.
Nucleic Acid Amplification test (NAAT)performed on the
[employer] platform.
06/12/24 04:28 MRSA Screen - Final
Nose No Methicillin Resistant Staphylococcus aureus isolated.
Blood Culture Final 06/14/24
Enterococcus faecalis
Organism 1 Enterococcus faecalis

* This is an amended result. *
Due to physician's request for additional antibiotics.

A prior result that was reported as final has been changed.
1. Enterococcus faecalis
M.I.C. RX
--------- ---
Ampicillin <=2 S
Ciprofloxacin <=1 S
Gentamicin Synergy Screen <=500 S
Susceptible result indicates synergy is likely with a cell
wall active agent that is also susceptible
(e.g.ampicillin,penicillin,vancomycin)
Levofloxacin <=1 S
Tetracycline >8 R
Vancomycin 2 S
--- NOTE | 2024-06-22 16:16 | PTCARENOTE ---
Patient tolerating mildly thick liquids and IDDSI% diet well, has been at bedside all day and helps patient eat. New dressing applied to patients stage 2 on buttock, right great toe wound also changed per order. RN tried to wean patients oxygen
but pt still requires 2L NC. NIH is unchanged from previous shift. Order for PICC line placed for 6 weeks of abx per ID note.
[2024-06-22] MEDS: LIPITOR 80 MG PO (17:09)
[2024-06-22] MEDS: FLUSH (NSS) 3 FLUSH IV (20:34)
[2024-06-22 20:51] LABS: Cardiolipin IgA Antibody <10 APL (<=11); Cardiolipin IgM Antibody <10 MPL (<=12); Cardiolipin Igg Antibody <10 GPL (<=14)
--- NOTE | 2024-06-22 23:22 | PTCARENOTE ---
Pt received at beginning of shift resting in bed. AAOx3. Neuro checks completed as documented without change from previous assessment. Left hemiparesis. Denies pain or discomfort. VSS. Afebrile. SR on CM rate 60's. POX on 2L NC 94%. Incontinent x 2
brown loose stool. Naya care completed. New MASD/ST(s) to posterior shaft of penis. Calazime cream applied. Rest of skin as docmented. Marroquin draining clear yellow urine. Maintained on Q2hr turns. Call marquez remains within reach on right side. Will
continue to monitor.
[2024-06-23] VITALS (12 sets, daily range): BP systolic 101–127; BP diastolic 59–87; PULSE 70; O2SAT 95; BMI 31.2
[2024-06-23] MEDS: AMPICILLIN 108 MG IV ×6 (01:08→21:36)
[2024-06-23 07:05] LABS: Hematocrit 33.7 % (39.0-52.0); Hemoglobin 10.9 g/dL (13.0-18.0); Mean Corp Hgb Conc. 32.3 g/dL (33.0-37.0); Mean Corpuscular Hgb 30.4 pg (27.0-31.0); Mean Corpuscular Volume 94.1 fL (80.0-94.0); Mean Platelet Volume 12.4 fL (7.4-10.4); Platelet Count 161 10^3/uL (130-400); Red Blood Cell Count 3.58 10^6/uL (4.70-6.10); Red Cell Dist. Width 16.2 % (11.5-14.5)
[2024-06-23 07:14] LABS: ALT (SGPT) 35 U/L (0-50); AST (SGOT) 26 U/L (17-59); Albumin 2.8 g/dl (3.5-5.0); Alkaline Phosphatase 56 U/L (38-126); Blood Urea Nitrogen 20 mg/dl (9-20); Calcium 7.8 mg/dl (8.4-10.2); Carbon Dioxide 27 mmol/L (22-30); Chloride 107 mmol/L (98-107); Estimated Creatinine Clearance 81 ml/min; Glucose 88 mg/dl (70-99); Potassium 3.8 mmol/L (3.5-5.1); Sodium 140 mmol/L (135-145); Total Bilirubin 0.6 mg/dl (0.2-1.3); Total Protein 5.1 g/dl (6.3-8.2); eGFR > 60.00
[2024-06-23] MEDS: SPIRIVA RESPIMAT 2.5 MCG 2 PUFF INH (07:25)
[2024-06-23] MEDS: SYMBICORT 80/4.5 MCG INHALER 2 PUFF INH ×2 (07:25→18:02)
[2024-06-23] MEDS: FARXIGA 10 MG PO (08:07)
[2024-06-23] MEDS: TYLENOL 650 MG PO ×2 (08:09→18:13)
[2024-06-23] MEDS: PACERONE 200 MG PO (08:10)
[2024-06-23] MEDS: FLOMAX 0.4 MG PO (08:10)
[2024-06-23] MEDS: ALDACTONE 12.5 MG PO (08:10)
[2024-06-23] MEDS: FOLVITE 1 MG PO (08:11)
[2024-06-23] MEDS: DELTASONE 30 MG PO (08:20)
[2024-06-23] MEDS: LOW STRENGTH ASPIRIN 81 MG PO (08:21)
[2024-06-23] MEDS: VITAMIN B1 100 MG PO ×2 (08:21→21:09)
[2024-06-23] MEDS: ENTRESTO 24 MG/26 MG 1 TAB PO ×2 (08:22→21:08)
[2024-06-23] MEDS: LASIX 20 MG PO (08:22)
[2024-06-23] MEDS: BACTRIM 400 MG/80 MG 1 TABLET PO (08:23)
[2024-06-23] MEDS: COREG 6.25 MG PO ×2 (08:23→21:09)
[2024-06-23] MEDS: PROTONIX 40 MG PO (08:25)
[2024-06-23] MEDS: LOVENOX 90 MG SC ×2 (08:29→21:08)
[2024-06-23] MEDS: ROCEPHIN 2000 MG IV ×2 (08:31→21:09)
[2024-06-23] MEDS: STERILE WATER FOR INJECTION 20 ML IV ×2 (08:31→21:09)
[2024-06-23 11:03] LABS: % Basophils 0.3 % (0-2); % Eosinophils 0.3 % (0-6); % Immature Granulocytes 6.4 % (0-0.5); % Monocytes 4.6 % (1.7-9.3); % Neutrophils 81.4 % (42.2-75.2)
[2024-06-23 11:04] LABS: Absolute Lymphocytes 0.7 10^3/uL (1.2-3.4); Absolute Monocytes 0.5 10^3/uL (0.1-0.6); Absolute Neutrophils 8.2 10^3/uL (1.4-6.5)
[2024-06-23 11:06] LABS: Absolute Immature Granulocytes 0.6 10^3/uL (0-0.05); Nucleated Red Blood Cells % 0.3 % (-)
--- NOTE | 2024-06-23 11:36 | W.PN.HOSP.TC ---
Today's Communication/Plan
-
PICC order placed
[facility] to re-eval tomorrow and CM will need to start d/c process - destination based on re-eval
Assessment / Plan
Assessment / Plan
74yo M with PMhx of HTN, Afib, HLD, GERD, COPD, HFmrEF s/p ICD, chronic steroids, came with sudden onset of L hemiparesis, found acute R MCA embolic stroke and R SUE embolic stroke, bacteremia with E.faecalis with concern for endocarditis. ID
started Abx and recommended CT abd, that accidentally showed concern for PVT and pulmonary embolism. Restarted on anticoagulation as of 06/18/24 after neurology reviewed repeated CT - petechial hemorrhages are not contraindication to AC. Since CVA
on Xarelto - hematology advised Lovenox vs Warfarin. Thrombophilia workup also started. Ordered PICC to cont Abx for 6 weeks and after that to be on chronic suppression 2/2 presence of PPM. No initial source of infection found - needs outpatient EGD
and colonoscopy
A/P:
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
#R frontal meningioma 1.3cm
ASA, statin
Repeat MRI in 1 year, outpatient neuroSx consult
Xarelto initially stopped to avoid early bleeding transformation - advised to restart anticoagulation on 06/18/[address] head reviewed by neurologist
HgbA1c 5.8%
LDL 101
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
#Bacteremia, concern for endocarditis
Enterococcus faecalis (ampicillin-sensitive) bacteremia, repeated neg Bcx, PICC to be placed
Possible endocarditis
Cardiology evaluated: repeat serial TTE since high risk for SARINA
ID consult - cont Abx (Ampicillin+Ceftriaxone), CT abd/pelvis without definite signs of the source, recommend outpatient EGD/Colonoscopy
#Possible pulmonary embolism within the visualized right main pulmonary artery
#Non-occlusive acute LLE DVT
#PVT thrombosis
Will start heparin anticoagulation as discussed with neurology - CT head repeated on 06/18/24 showed petechial hemorrhages due to known strokes, however those are not absolute contraindication for anticoagulation
Heparin drip completed - switched to lovenox as per health care sanitary technician advise. Thrombophilia eval ongoing
poor opacification of the portal vein, but findings raise concern for thrombosis involving the right portal vein
to be on anticoagulation, confirmed on US RUQ
#b/l atelectasis
incentive spirometry
#CT showed Stranding of the fat surrounding the gallbladder
#Small gall bladder polyps with sludge
concern for acute cholecystitis, however clinically no symptoms, LFT normal. US RUQ reasonable neg for cholecystitis
#Two focal splenic infarcts
Thromboembolic?
#Hematuria
#Acute urinary retention
now on Castillo
Hematuria 2/2 traumatic castillo, now resolved
TOV failed 06/20/24
Urology as outpatient for cystoscopy
#Small left adrenal gland mass, stable, likely an adenoma.
Right adrenal gland mass,
was not present on CT scan in 2008
Continued follow-up is recommended.
#Dysphagia
VSE passed, diet started
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
#Acute metabolic encephalopathy
2/2 CVA
#EMEKA
resolved
follow Cr
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
#Afib, paroxysmal
#COPD not in exacerbation
#Sarcoidosis on chronic steroids
#Alcohol use d/o
cont home meds
THiamine/folate
#Mild thrombocytopenia, reactive
follow CBC
DVT ppx on lovenox therapeutic
Full code
I have spent at least 37min reviewing chart, test results, communication with consultants and direct patient care
Anticipated Discharge: > 48 hours
Subjective/Interval History
-
Date of Service: June 23, 2024
Objective Data
-
Labs:
Laboratory Results
06/23/24
06:36
WBC 10.0
Hgb 10.9 L
Hct 33.7 L
Plt Count 161
Sodium 140
Potassium 3.8
Chloride 107
Carbon Dioxide 27
BUN 20
Creatinine 0.9
Glucose 88
Calcium 7.8 L
Total Bilirubin 0.6
AST 26
ALT 35
Alkaline Phosphatase 56
Vital Signs:
Vital Signs
Temp Pulse Resp BP Pulse Ox
98.0 F 63 18 119/63 94
06/23/24 07:10 06/23/24 07:28 06/23/24 07:28 06/23/24 06:00 06/23/24 07:28
I&O
06/22/24 06/23/24 06/24/24
06:59 06:59 06:59
Intake Total 1740 / 1740 1004 / 1004
Output Total 2275 / 2275 1550 / 1550
Balance -535 / -535 -546 / -546
Review of Systems
-
History Source: Patient
All other systems: Reviewed and negative
Physical Exam
-
General: No Apparent Distress
HEENT: Normocephalic
Respiratory: Clear to Auscultation
GI: Soft
Skin: Warm
Neuro: Awake, Alert and No Motor Deficits (R hemiparesis, dysarthria)
Psych: Calm
[2024-06-23] MEDS: LIPITOR 80 MG PO (18:13)
[2024-06-24] VITALS (13 sets, daily range): BP systolic 107–151; BP diastolic 45–109; BMI 30.6
[2024-06-24] MEDS: AMPICILLIN 108 MG IV ×6 (01:52→22:29)
--- NOTE | 2024-06-24 04:15 | PTCARENOTE ---
Addendum entered by Delfina Wood RN 06/24/24 04:27:
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
Original Note:
Pt having episode early in shift of being upset when rolled and not having water fast enough. Pt requesting water while being changed and laying on side. Pt cursing at Tech and this RN saying 'Fuck you' and stating 'do things when I tell you'.
Emotional support given and education about drinking while lying down. Pt having another similar episode of agitation and anger. Emotional support given. Given Pt life changing event and outbursts psych consult may be needed? Assessment care and
vital as charted.
--- NOTE | 2024-06-24 05:49 | PTCARENOTE ---
During morning care Pt touching himself inappropriately, stroking penis back and forth when asked to stop and educating pt he has a Marroquin to urinate Pt replied with ' I am trying to ejaculate'. Pt than began to rub this RNs shoulder moving down arm.
Pt educated on appropriate behavior with staff. Pt quickly accepted education.
[2024-06-24] MEDS: SYMBICORT 80/4.5 MCG INHALER 2 PUFF INH ×2 (07:32→20:44)
[2024-06-24] MEDS: SPIRIVA RESPIMAT 2.5 MCG 2 PUFF INH (07:32)
[2024-06-24] MEDS: FLOMAX 0.4 MG PO (08:30)
[2024-06-24] MEDS: FARXIGA 10 MG PO (08:30)
[2024-06-24] MEDS: LOW STRENGTH ASPIRIN 81 MG PO (08:30)
[2024-06-24] MEDS: FOLVITE 1 MG PO (08:30)
[2024-06-24] MEDS: COREG 6.25 MG PO ×2 (08:30→22:30)
[2024-06-24] MEDS: DELTASONE 30 MG PO (08:30)
[2024-06-24] MEDS: ROCEPHIN 2000 MG IV ×2 (08:30→22:32)
[2024-06-24] MEDS: ENTRESTO 24 MG/26 MG 1 TAB PO ×2 (08:30→22:30)
[2024-06-24] MEDS: ALDACTONE 12.5 MG PO (08:30)
[2024-06-24] MEDS: LOVENOX 90 MG SC ×2 (08:30→22:30)
[2024-06-24] MEDS: BACTRIM 400 MG/80 MG 1 TABLET PO (08:30)
[2024-06-24] MEDS: LASIX 20 MG PO (08:30)
[2024-06-24] MEDS: VITAMIN B1 100 MG PO ×2 (08:30→22:30)
[2024-06-24] MEDS: PACERONE 200 MG PO (08:30)
[2024-06-24] MEDS: PROTONIX 40 MG PO (08:30)
[2024-06-24] MEDS: STERILE WATER FOR INJECTION 20 ML IV ×2 (08:30→22:32)
--- NOTE | 2024-06-24 09:36 | W.PN.HOSP.TC ---
Today's Communication/Plan
-
Antibiotics. PICC line
Assessment / Plan
Assessment / Plan
Physical exam:
General: Acute on chronically ill
HEENT: Normocephalic, Atraumatic and Moist Mucous Membranes
Respiratory: Clear to Auscultation; Negative Wheezes, Rales or Rhonchi
Cardiac: Regular Rhythm and S1/S2
GI: Soft, Nontender and Nondistended
Musculoskeletal: No Clubbing, No Cyanosis and No Edema
Neuro: Awake, Alert and Oriented, left hemiparesis.
Psych: Calm
A/P:
74yo M with PMhx of HTN, Afib, HLD, GERD, COPD, HFmrEF s/p ICD, chronic steroids, came with sudden onset of L hemiparesis, found acute R MCA embolic stroke and R SUE embolic stroke, bacteremia with E.faecalis with concern for endocarditis. ID
started Abx and recommended CT abd, that accidentally showed concern for PVT and pulmonary embolism. Restarted on anticoagulation as of 06/18/24 after neurology reviewed repeated CT - petechial hemorrhages are not contraindication to AC. Since CVA
on Xarelto - hematology advised Lovenox vs Warfarin. Thrombophilia workup also started. Ordered PICC to cont Abx for 6 weeks and after that to be on chronic suppression 2/2 presence of PPM. No initial source of infection found - needs outpatient EGD
and colonoscopy
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
#R frontal meningioma 1.3cm
ASA, statin
Repeat MRI in 1 year, outpatient neuroSx consult
Xarelto initially stopped to avoid early bleeding transformation - advised to restart anticoagulation on 06/18/[address] head reviewed by neurologist
HgbA1c 5.8%
LDL 101
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
#Bacteremia, concern for endocarditis
Enterococcus faecalis (ampicillin-sensitive) bacteremia, repeated neg Bcx, PICC to be placed
Possible endocarditis
Cardiology evaluated: repeat serial TTE since high risk for SARINA
ID consult - cont Abx (Ampicillin+Ceftriaxone), CT abd/pelvis without definite signs of the source, recommend outpatient EGD/Colonoscopy
#Possible pulmonary embolism within the visualized right main pulmonary artery
#Non-occlusive acute LLE DVT
#PVT thrombosis
Will start heparin anticoagulation as discussed with neurology - CT head repeated on 06/18/24 showed petechial hemorrhages due to known strokes, however those are not absolute contraindication for anticoagulation
Heparin drip completed - switched to lovenox as per pasting machine operator advise. Thrombophilia eval ongoing
poor opacification of the portal vein, but findings raise concern for thrombosis involving the right portal vein
to be on anticoagulation, confirmed on US RUQ
#b/l atelectasis
incentive spirometry
#CT showed Stranding of the fat surrounding the gallbladder
#Small gall bladder polyps with sludge
concern for acute cholecystitis, however clinically no symptoms, LFT normal. US RUQ reasonable neg for cholecystitis
#Two focal splenic infarcts
Thromboembolic?
#Hematuria
#Acute urinary retention
now on Castillo
Hematuria 2/2 traumatic castillo, now resolved
TOV failed 06/20/24
Urology as outpatient for cystoscopy
#Small left adrenal gland mass, stable, likely an adenoma.
Right adrenal gland mass,
was not present on CT scan in 2008
Continued follow-up is recommended.
#Dysphagia
VSE passed, diet started
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
#Acute metabolic encephalopathy
2/2 CVA
#EMEKA
resolved
follow Cr
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
#Afib, paroxysmal
#COPD not in exacerbation
#Sarcoidosis on chronic steroids
#Alcohol use d/o
cont home meds
THiamine/folate
#Mild thrombocytopenia, reactive
follow CBC
DVT ppx on lovenox therapeutic
Full code
Anticipated Discharge: 24 - 48 hours
Subjective/Interval History
-
Date of Service: June 24, 2024
Patient with left hemiparesis. Feels well overall. Afebrile
Objective Data
-
Vital Signs:
Vital Signs
Temp Pulse Resp BP Pulse Ox
98.3 F 72 17 122/45 95
06/24/24 07:20 06/24/24 08:00 06/24/24 08:00 06/24/24 08:00 06/24/24 08:00
I&O
06/23/24 06/24/24 06/25/24
06:59 06:59 06:59
Intake Total 1004 / 1004 1260 / 1260
Output Total 1550 / 1550 2300 / 2300
Balance -546 / -546 -1040 / -1040
--- NOTE | 2024-06-24 10:07 | W.PN.ID1 ---
Date of Service
Date of Service: June 24, 2024
Today's Communication
Continue antibiotics.
Place picc.
Assessment / Plan
Enterococcal faecalis Bacteremia - sustained 06/14-06/16
Acute strokes right MCA
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
Splenic infarcts
Sarcoidosis
Immunosuppression on high dose steroids and PJP prophyalxis
Pacemaker in place
- 06/18 blood cultures x2 in progress no growth to date
- 06/16 blood cultures 1 of 2 sets: enterococcus
- 06/14 blood cultures x2 from two different draws both with enterococcus
- ua no pyuria, urine is not the source
- CT a/p with contrast: concern for PE, possible portal vein thrombus, two focal splenic infarcts, fat stranding seen around gallbladder but normal LFTs,
- eventual egd/colonoscopy recommended outpatient
- repeat echo 06/20: no significant change, no vegetations
- c/w ampicillin to 2 gm IV q4 hours
- c/w ceftriaxone 2 gm IV q12hrs
- plan at least 6 weeks of IV antibiotics (through jul 29) and then likely suppression with amoxicillin given pacemaker
- continue bactrim (PJP ppx)
- Ordered double-lumen PICC placement today.
Chief Complaint
-: Bacteremia and Other (possible endocarditis)
Subjective / Review of Systems
at bedside.
Pt feels OK today.
Vital Signs / Physical Exam
Vital Signs
Vital Signs
Temp Pulse Resp BP Pulse Ox
98.3 F 72 17 122/45 95
06/24/24 07:20 06/24/24 08:00 06/24/24 08:00 06/24/24 08:00 06/24/24 08:00
Physical Exam
Constitutional: Comfortable
Eyes: No Conjunctival Hemorrhage and Sclera Anicteric
Pulmonary: Clear
Gastrointestinal: Soft, Non Tender and Non Distended
Extremities: Negative Edema
Neurological: AO x 3
Objective Data
Lab Data
APTT Cancelled 06/20/24 12:20
Estimated Creat Clear 81 ml/min 06/23/24 06:36
Total Bilirubin 0.6 mg/dl (0.2-1.3) 06/23/24 06:36
AST 26 U/L (17-59) 06/23/24 06:36
ALT 35 U/L (0-50) 06/23/24 06:36
Alkaline Phosphatase 56 U/L (38-126) 06/23/24 06:36
Most recent labs reviewed.
Micro Results:
06/16/24 15:48 Blood Culture - Final
Blood/Venous Enterococcus faecalis
Gram Stain - Final
06/18/24 12:46 Blood Culture - Final
Blood/Venous No Growth - Final Report
06/18/24 12:38 Blood Culture - Final
Blood/Venous No Growth - Final Report
06/16/24 15:52 Blood Culture - Final
Blood/Venous No Growth - Final Report
06/14/24 09:55 Blood Culture - Final
Blood/Venous Enterococcus faecalis
Gram Stain - Final
06/14/24 20:29 Blood Culture - Final
Blood/Venous Enterococcus faecalis
Gram Stain - Final
06/14/24 15:34 Influenza Types A & B (PEPE) - Final
Nasal Swab Negative for Influenza A & B, NAAT
Negative results must be combined with clinical observations
and patient history.
Nucleic Acid Amplification test (NAAT)performed on the
[employer] platform.
06/12/24 04:28 MRSA Screen - Final
Nose No Methicillin Resistant Staphylococcus aureus isolated.
Blood Culture Final 06/14/24
Enterococcus faecalis
Organism 1 Enterococcus faecalis

* This is an amended result. *
Due to physician's request for additional antibiotics.

A prior result that was reported as final has been changed.
1. Enterococcus faecalis
M.I.C. RX
--------- ---
Ampicillin <=2 S
Ciprofloxacin <=1 S
Gentamicin Synergy Screen <=500 S
Susceptible result indicates synergy is likely with a cell
wall active agent that is also susceptible
(e.g.ampicillin,penicillin,vancomycin)
Levofloxacin <=1 S
Tetracycline >8 R
Vancomycin 2 S
--- NOTE | 2024-06-24 11:08 | CM ---
CM reviewed chart and pt with [facility]
Plan for [facility] to re-eval tomorrow 06/25
Per recent therapy evals, may not be appropriate for acute rehab per [facility] admissions
Bedside meeting with pt and spouse- pt did not participate in meeting
Recommended backup SNF referrals should pt not be appropriate for [facility]
PASRR completed and referrals sent via [facility] to [facility], [facility], [facility] ([facility] is 1st choice)
Role of BC in auth process explained
Pt will require 6 weeks IV abx, plan for picc placement
Discharge Disposition- 6 weeks IV abx, [facility] vs SNF pending auth
[2024-06-24 14:09] LABS: Hematocrit 36.5 % (39.0-52.0); Hemoglobin 11.5 g/dL (13.0-18.0); Mean Corp Hgb Conc. 31.5 g/dL (33.0-37.0); Mean Corpuscular Hgb 29.9 pg (27.0-31.0); Mean Corpuscular Volume 94.8 fL (80.0-94.0); Mean Platelet Volume 12.6 fL (7.4-10.4); Platelet Count 178 10^3/uL (130-400); Red Blood Cell Count 3.85 10^6/uL (4.70-6.10); Red Cell Dist. Width 16.6 % (11.5-14.5); White Blood Cell Count 14.7 10^3/uL (4.8-10.8)
[2024-06-24 14:21] LABS: Blood Urea Nitrogen 20 mg/dl (9-20); Carbon Dioxide 24 mmol/L (22-30); Chloride 103 mmol/L (98-107); Estimated Creatinine Clearance 80 ml/min; Glucose 142 mg/dl (70-99); Potassium 4.3 mmol/L (3.5-5.1); Sodium 136 mmol/L (135-145); eGFR > 60.00
[2024-06-24 14:25] LABS: % Basophils 0.1 % (0-2); % Eosinophils 0.1 % (0-6); % Immature Granulocytes 5.5 % (0-0.5); % Lymphocytes 3.1 % (20.5-51.1); % Monocytes 2.8 % (1.7-9.3); % Neutrophils 88.4 % (42.2-75.2); Absolute Immature Granulocytes 0.8 10^3/uL (0-0.05); Absolute Lymphocytes 0.5 10^3/uL (1.2-3.4); Absolute Monocytes 0.4 10^3/uL (0.1-0.6); Nucleated Red Blood Cells % 0.1 % (-)
--- NOTE | 2024-06-24 16:00 | PTCARENOTE ---
PICC placed today right D/L. NIH score 17. Patient alert and oriented slow speech, intermittent expressive dysphagia. Marroquin catheter to be removed 06/25/2024 as per MD order. Sp02 94-96% 2L o2 via n/c. Lungs diminished throughout, occasional
dry cough. VS stable, afebrile. Patient's Corie would like [facility] for first choice for rehab when medically stable
[2024-06-24] MEDS: LIPITOR 80 MG PO (18:46)
[2024-06-24 21:24] LABS: Anti-Xa Qualitative Interp Present (Not Present); Anticoagulant Med Neutralizati DOAC-Stop (Not Performed); Hexagonal Phospholipid Confirm Not Performed s (<=7.9); Neutralized PTT-LA Ratio Not Performed (<=1.20); Prothrombin Time 20.6 s (12.0-15.5); Thrombin Time Not Performed s (<=19.5); dRVTT 1.1 Mix Ratio Not Performed (<=1.20); dRVTT Confirmation Ratio Not Performed (<=1.20); dRVTT Screen Ratio 2.13 (<=1.20)
[2024-06-24] MEDS: DESENEX/MITRAZOL/ZEASORB 1 APPLIC TOPICAL (22:46)
[2024-06-25] VITALS (17 sets, daily range): BP systolic 102–145; BP diastolic 54–98; PULSE 67–68; O2SAT 93
[2024-06-25] MEDS: AMPICILLIN 108 MG IV ×6 (02:39→23:02)
--- NOTE | 2024-06-25 05:31 | PTCARENOTE ---
Addendum entered by Li Wang RN 06/25/24 06:22:
Castillo catheter removed. [place] cath placed. Pt updated.
Original Note:
CHG done this morning. Incont BM; foam dressing changed on bottom. Plan to remove castillo at 0600. NSR w/ occasional a-pacing on tele. BPs being taken on RLE. Call marquez within reach, pt calls appropriately. Left sided hemiparesis unchanged. Swallowed
pills crushed in thickened cranberry juice. On RA, Sp02 88-89% while sleeping; 2L in place. Call marquez within reach. Pt able to call for assistance with call marquez with RUE.
[2024-06-25] MEDS: FLOMAX 0.4 MG PO (08:08)
[2024-06-25] MEDS: ROCEPHIN 2000 MG IV ×2 (08:08→21:27)
[2024-06-25] MEDS: FARXIGA 10 MG PO (08:08)
[2024-06-25] MEDS: STERILE WATER FOR INJECTION 20 ML IV ×2 (08:08→21:27)
[2024-06-25] MEDS: TYLENOL 650 MG PO ×2 (08:08→23:15)
[2024-06-25] MEDS: LOVENOX 90 MG SC ×2 (08:08→21:26)
[2024-06-25] MEDS: PROTONIX 40 MG PO (08:09)
[2024-06-25] MEDS: LASIX 20 MG PO (08:09)
[2024-06-25] MEDS: LOW STRENGTH ASPIRIN 81 MG PO (08:09)
[2024-06-25] MEDS: DELTASONE 30 MG PO (08:09)
[2024-06-25] MEDS: ENTRESTO 24 MG/26 MG 1 TAB PO ×2 (08:09→21:23)
[2024-06-25] MEDS: ALDACTONE 12.5 MG PO (08:09)
[2024-06-25] MEDS: VITAMIN B1 100 MG PO ×2 (08:10→21:23)
[2024-06-25] MEDS: PACERONE 200 MG PO (08:10)
[2024-06-25] MEDS: BACTRIM 400 MG/80 MG 1 TABLET PO (08:10)
[2024-06-25] MEDS: FOLVITE 1 MG PO (08:10)
[2024-06-25] MEDS: COREG 6.25 MG PO ×2 (08:10→21:26)
[2024-06-25] MEDS: SPIRIVA RESPIMAT 2.5 MCG 2 PUFF INH (08:37)
--- NOTE | 2024-06-25 08:37 | W.PN.ONC2 ---
Today's Communication / Plan
-
f/u [id number]
UFH or LMWH while hospitalized. If septic emboli is etiology of emboli then could consider resumption of DOAC at discharge in the absence of bleeding
monitor closely for bleeding
I will defer to the primary service if 24hour urine free cortisol, metanephrines, and catecholamines are indicated for incidental adrenal findings on CT
Impression
Impression
MCA CVA on Xarelto 20mg daily
Multiple areas of thrombosis of indeterminate age including spleen, portal vein and pulmonary artery. 06/18 US LLE Nonocclusive DVT. Concern for septic emboli.
Hx PE 1999
Lupus anticoagulant, anticardiolipin negative. [id number] pending.
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
Sarcoidosis, Immunosuppression on steroids and PJP prophyalxis
morbid obesity
HFrEF
right adrenal gland mass. left adrenal adenoma
Plan
Plan
Thromboses in multiple locations of indeterminate age. Although septic emboli increases risk of bleeding, I believe pt risk of thrombosis with immobility, hx VTE warrants use of therapeutic anticoagulation at this time with close monitoring for
bleeding.
I do not think that this is a clear DOAC failure since possible septic emboli related to bacteremia/endocarditis
MCA CVA
Anticardiolipin antibody and LA negative
Beta-2 glycoprotein antibody pending
Lupus anticoagulate pending
agree with Lovenox 1 mg/kg SQ BID while hospitalized
Repeat CT ab/pelvis 3-6 months for continued right adrenal mass surveillance
abx per ID
Subjective/Objective
Subjective
no new complaints
Vital Signs:
Vital Signs
Temp Pulse Resp BP Pulse Ox
97.7 F 64 18 145/54 96
06/25/24 04:58 06/25/24 08:00 06/25/24 08:00 06/25/24 08:00 06/25/24 08:00
Lab Results:
Laboratory Data
WBC 14.7 10^3/uL (4.8-10.8) H 06/24/24 13:34
Hgb 11.5 g/dL (13.0-18.0) L 06/24/24 13:34
Plt Count 178 10^3/uL (130-400) 06/24/24 13:34
APTT Cancelled 06/20/24 12:20
eGFR > 60.00 06/24/24 13:34
Physical Exam
HEENT: Moist Mucous Membranes; No Jaundice
Cardiology: Normal Sinus Rhythm
Pulmonary: Clear
GI: Soft
Extremities: Pulses Present; No Edema
Neuro: Other (left hemiparesis)
[2024-06-25] MEDS: SYMBICORT 80/4.5 MCG INHALER 2 PUFF INH ×2 (08:38→20:47)
--- NOTE | 2024-06-25 08:52 | W.PN.ID1 ---
Date of Service
Date of Service: June 25, 2024
Today's Communication
c/w ampicillin to 2 gm IV q4 hours and ceftriaxone 2 gm IV q12hrs at least 6 weeks of IV antibiotics (through jul 29, 2024) and then suppression with amoxicillin given pacemaker
Assessment / Plan
Enterococcal faecalis Bacteremia - sustained 06/14-06/16
Acute strokes right MCA- suspect septic emboli
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
Sarcoidosis
Immunosuppression on high dose steroids and PJP prophyalxis
Pacemaker in place
- 06/18 blood cultures x2 in progress no growth to date
- 06/16 blood cultures 1 of 2 sets: enterococcus
- 06/14 blood cultures x2 from two different draws both with enterococcus
- ua no pyuria, urine is not the source
- CT a/p with contrast: concern for PE, possible portal vein thrombus, two focal splenic infarcts, fat stranding seen around gallbladder but normal LFTs,
- eventual egd/colonoscopy recommended outpatient
- repeat echo 06/20: no significant change, no vegetations
- c/w ampicillin to 2 gm IV q4 hours
- c/w ceftriaxone 2 gm IV q12hrs
- plan at least 6 weeks of IV antibiotics (through jul 29) and then likely suppression with amoxicillin given pacemaker
- continue bactrim (PJP ppx)
-double-lumen PICC in place
Chief Complaint
-: Bacteremia and Other (possible endocarditis)
Subjective / Review of Systems
Feels well.
Vital Signs / Physical Exam
Vital Signs
Vital Signs
Temp Pulse Resp BP Pulse Ox
97.7 F 77 16 145/54 95
06/25/24 04:58 06/25/24 08:44 06/25/24 08:44 06/25/24 08:00 06/25/24 08:44
Physical Exam
Constitutional: No Acute Distress
Cardiovascular: Regular Rate, S1/S2 and Other (ppm site without erythema)
Gastrointestinal: Soft, Non Tender, Non Distended and Normal Bowel Sounds
Neurological: AO x 3
Lines: PICC (RUE no erythema)
Objective Data
Lab Data
Lab Results
06/24/24 13:34
06/24/24 13:34
APTT Cancelled 06/20/24 12:20
Estimated Creat Clear 80 ml/min 06/24/24 13:34
Total Bilirubin 0.6 mg/dl (0.2-1.3) 06/23/24 06:36
AST 26 U/L (17-59) 06/23/24 06:36
ALT 35 U/L (0-50) 06/23/24 06:36
Alkaline Phosphatase 56 U/L (38-126) 06/23/24 06:36
Most recent labs reviewed.
Micro Results:
06/16/24 15:48 Blood Culture - Final
Blood/Venous Enterococcus faecalis
Gram Stain - Final
06/18/24 12:46 Blood Culture - Final
Blood/Venous No Growth - Final Report
06/18/24 12:38 Blood Culture - Final
Blood/Venous No Growth - Final Report
06/16/24 15:52 Blood Culture - Final
Blood/Venous No Growth - Final Report
06/14/24 09:55 Blood Culture - Final
Blood/Venous Enterococcus faecalis
Gram Stain - Final
06/14/24 20:29 Blood Culture - Final
Blood/Venous Enterococcus faecalis
Gram Stain - Final
06/14/24 15:34 Influenza Types A & B (PEPE) - Final
Nasal Swab Negative for Influenza A & B, NAAT
Negative results must be combined with clinical observations
and patient history.
Nucleic Acid Amplification test (NAAT)performed on the
[employer] platform.
06/12/24 04:28 MRSA Screen - Final
Nose No Methicillin Resistant Staphylococcus aureus isolated.
Blood Culture Final 06/14/24
Enterococcus faecalis
Organism 1 Enterococcus faecalis

* This is an amended result. *
Due to physician's request for additional antibiotics.

A prior result that was reported as final has been changed.
1. Enterococcus faecalis
M.I.C. RX
--------- ---
Ampicillin <=2 S
Ciprofloxacin <=1 S
Gentamicin Synergy Screen <=500 S
Susceptible result indicates synergy is likely with a cell
wall active agent that is also susceptible
(e.g.ampicillin,penicillin,vancomycin)
Levofloxacin <=1 S
Tetracycline >8 R
Vancomycin 2 S
--- NOTE | 2024-06-25 09:58 | W.PN.HOSP.TC ---
Addendum entered and electronically signed by Polo Zazueta MD 06/25/24 16:17:
Discussed with hematology and recommend to cont Lovenox full dose for now and change to DOAC only upon d/c over the next few days.
Original Note:
Today's Communication/Plan
-
Antibiotics. Change Lovenox full dose to DOAC. Discharge planning
Assessment / Plan
Assessment / Plan
Physical exam:
General: Acute on chronically ill
HEENT: Normocephalic, Atraumatic and Moist Mucous Membranes
Respiratory: Clear to Auscultation; Negative Wheezes, Rales or Rhonchi
Cardiac: Regular Rhythm and S1/S2
GI: Soft, Nontender and Nondistended
Musculoskeletal: No Clubbing, No Cyanosis and No Edema
Neuro: Awake, Alert and Oriented, left hemiparesis.
Psych: Calm
A/P:
74yo M with PMhx of HTN, Afib, HLD, GERD, COPD, HFmrEF s/p ICD, chronic steroids, came with sudden onset of L hemiparesis, found acute R MCA embolic stroke and R SUE embolic stroke, bacteremia with E.faecalis with concern for endocarditis. ID
started Abx and recommended CT abd, that accidentally showed concern for PVT and pulmonary embolism. Restarted on anticoagulation as of 06/18/24 after neurology reviewed repeated CT - petechial hemorrhages are not contraindication to AC. Since CVA
on Xarelto - hematology advised Lovenox vs Warfarin. Thrombophilia workup also started. Ordered PICC to cont Abx for 6 weeks and after that to be on chronic suppression 2/2 presence of PPM. No initial source of infection found - needs outpatient EGD
and colonoscopy
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
#R frontal meningioma 1.3cm
ASA, statin
Repeat MRI in 1 year, outpatient neuroSx consult
Xarelto initially stopped to avoid early bleeding transformation - advised to restart anticoagulation on 06/18/[address] head reviewed by neurologist
HgbA1c 5.8%
LDL 101
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
#Bacteremia, concern for endocarditis
Enterococcus faecalis (ampicillin-sensitive) bacteremia, repeated neg Bcx, PICC to be placed
Possible endocarditis
Cardiology evaluated: repeat serial TTE since high risk for SARINA
ID consult - cont Abx (Ampicillin+Ceftriaxone), after IV antibiotics he will need to be on oral antibiotics with amoxicillin for suppression given pacemaker. CT abd/pelvis without definite signs of the source, recommend outpatient EGD/Colonoscopy
#Possible pulmonary embolism within the visualized right main pulmonary artery
#Non-occlusive acute LLE DVT
#PVT thrombosis
Will start heparin anticoagulation as discussed with neurology - CT head repeated on 06/18/24 showed petechial hemorrhages due to known strokes, however those are not absolute contraindication for anticoagulation
Heparin drip completed - switched to lovenox as per battery tester field advise. Thrombophilia eval ongoing. Hematology recommends switch Lovenox to DOAC.
poor opacification of the portal vein, but findings raise concern for thrombosis involving the right portal vein
to be on anticoagulation, confirmed on US RUQ
#b/l atelectasis
incentive spirometry
#CT showed Stranding of the fat surrounding the gallbladder
#Small gall bladder polyps with sludge
concern for acute cholecystitis, however clinically no symptoms, LFT normal. US RUQ reasonable neg for cholecystitis
#Two focal splenic infarcts
Thromboembolic?
#Hematuria
#Acute urinary retention
now on Castillo
Hematuria 2/2 traumatic castillo, now resolved
TOV failed 06/20/24
Urology as outpatient for cystoscopy
#Small left adrenal gland mass, stable, likely an adenoma.
Right adrenal gland mass,
was not present on CT scan in 2008
Continued follow-up is recommended.
#Dysphagia
VSE passed, diet started
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
#Acute metabolic encephalopathy
2/2 CVA
#EMEKA
resolved
follow Cr
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
#Afib, paroxysmal
#COPD not in exacerbation
#Sarcoidosis on chronic steroids
#Alcohol use d/o
cont home meds
THiamine/folate
#Mild thrombocytopenia, reactive
follow CBC
DVT ppx Xarelto
Full code
Total time spent to see the patient, examine the patient, review data and lab results, discuss the treatment plan with patient, nursing staff around 55 minutes
Anticipated Discharge: 24 - 48 hours
Subjective/Interval History
-
Date of Service: June 25, 2024
Patient does not voice any new complaints. Dense left left hemiparesis. Afebrile
Objective Data
-
Vital Signs:
Vital Signs
Temp Pulse Resp BP Pulse Ox
97.7 F 77 16 145/54 95
06/25/24 04:58 06/25/24 08:44 06/25/24 08:44 06/25/24 08:00 06/25/24 08:44
I&O
06/24/24 06/25/24 06/26/24
06:59 06:59 06:59
Intake Total 1260 / 1260 1608 / 1608
Output Total 2300 / 2300 2100 / 2100
Balance -1040 / -1040 -492 / -492
--- NOTE | 2024-06-25 16:38 | PTOTSP ---
Dysphagia Therapy
Impression: Mild-moderate oral, mild pharyngeal dysphagia. See patient care note for details. Patient appropriate to advance solids and initiate aspiration risk hydration protocol to allow ice chips. See below.
Recommend:
1. IDDSI L6 Soft and Bite Sized, IDDSI Level 2 Mildly Thick Liquids
2. Medications: crushed in puree if medically cleared
3. Strategies: upright to 90 degrees, full supervision and assistance, small single sips/bites, check for oral clearance (lingual sweep and/or liquid wash to assist), reflux precautions
4. Oral care 3x daily
5. Aspiration Risk Hydration Protocol - unlimited ice chips after oral care with supervision
6. LOAN REVIEW OFFICER therapy at the acute care level. Dysphagia tx to include education, instruction in compensations, and therapeutic trials of thin liquids and advanced solids (pending MCKINLEY/mentation).
--- NOTE | 2024-06-25 16:52 | PTCARENOTE ---
Addendum entered by Caryl Westbrook RN 06/25/24 18:24:
NIHSS scored 15 today. Following commands, tried to help me pull himself up in bed with his right leg!
Original Note:
Marroquin removed this am was DTV- unable bladder scanned 411ml and straight cathed for 500ml with out difficulty. Incontinent large amt brown soft stool- x2 today - sacral dressing soiled both times - will replace next turn. present all day-
assists with meals . PT assisted to side of bed. Attempted off O2 today eventually sao2 drops to 89-90% so 2L replaced.
[2024-06-25] MEDS: LIPITOR 80 MG PO (17:32)
--- NOTE | 2024-06-25 22:00 | PTCARENOTE ---
Pt received from previous RN. Pt AA0x3. Pt NIH score unchanged from previous shift, scoring 15, left sided hemiparesis remains, pt able to make needs known, using call marquez. oral care preformed. Inc soft light brown, BM's. barrier powder applied to
groin and foam placed on left sided bottom wound. Assessment as documented.
[2024-06-26] VITALS (13 sets, daily range): BP systolic 126–154; BP diastolic 49–79
[2024-06-26] MEDS: AMPICILLIN 108 MG IV ×6 (03:02→21:50)
--- NOTE | 2024-06-26 03:08 | PTCARENOTE ---
RN and Pct providing hygiene care to Pt after inc. of BM. Pt speaking to this RN and PCT with vulgarity, statements including 'your kevan I don't piss all over you' and 'what are you gonna go tell your daddy', as well as 'you are a horrible nurses'.
Pt asked to please stop making such statements.
[2024-06-26 03:12] LABS: Hematocrit 32.4 % (39.0-52.0); Hemoglobin 10.4 g/dL (13.0-18.0); Mean Corp Hgb Conc. 32.1 g/dL (33.0-37.0); Mean Corpuscular Hgb 30.2 pg (27.0-31.0); Mean Corpuscular Volume 94.2 fL (80.0-94.0); Mean Platelet Volume 11.7 fL (7.4-10.4); Platelet Count 163 10^3/uL (130-400); Red Blood Cell Count 3.44 10^6/uL (4.70-6.10); Red Cell Dist. Width 16.8 % (11.5-14.5); White Blood Cell Count 11.2 10^3/uL (4.8-10.8)
[2024-06-26 04:09] LABS: Blood Urea Nitrogen 26 mg/dl (9-20); Calcium 7.9 mg/dl (8.4-10.2); Carbon Dioxide 23 mmol/L (22-30); Chloride 104 mmol/L (98-107); Estimated Creatinine Clearance 80 ml/min; Glucose 112 mg/dl (70-99); Potassium 4.2 mmol/L (3.5-5.1); Sodium 136 mmol/L (135-145); eGFR > 60.00
[2024-06-26 05:46] LABS: Absolute Neutrophils -Man Diff 10.1 10^3/uL (1.4-6.5); Band Neutrophils 4 % (0-3); Lymphocytes 6 % (20-51); Metamyelocytes 2 % (-); Monocytes 1 % (2-9); Normal RBC Morphology No; Platelets Checked Yes; Segmented Neutrophils 87 % (42-75)
[2024-06-26 05:47] LABS: Anisocytosis 1+; Hypersegmented Neutrophil 1+; Ovalocytes 1+; Polychromasia 1+; Total Cells Counted 100
[2024-06-26] MEDS: SYMBICORT 80/4.5 MCG INHALER 2 PUFF INH ×2 (08:08→19:46)
[2024-06-26] MEDS: SPIRIVA RESPIMAT 2.5 MCG 2 PUFF INH (08:08)
--- NOTE | 2024-06-26 09:03 | W.PN.ID1 ---
Date of Service
Date of Service: June 26, 2024
Today's Communication
c/w ampicillin to 2 gm IV q4 hours and ceftriaxone 2 gm IV q12hrs at least 6 weeks of IV antibiotics (through jul 29, 2024) and then suppression with amoxicillin given pacemaker
Assessment / Plan
Enterococcal faecalis Bacteremia - sustained 06/14-06/16
Acute strokes right MCA- suspect septic emboli
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
Sarcoidosis
Immunosuppression on high dose steroids and PJP prophyalxis
Pacemaker in place
- 06/18 blood cultures x2 in progress no growth to date
- 06/16 blood cultures 1 of 2 sets: enterococcus
- 06/14 blood cultures x2 from two different draws both with enterococcus
- ua no pyuria, urine is not the source
- CT a/p with contrast: concern for PE, possible portal vein thrombus, two focal splenic infarcts, fat stranding seen around gallbladder but normal LFTs,
- eventual egd/colonoscopy recommended outpatient
- repeat echo 06/20: no significant change, no vegetations
- c/w ampicillin to 2 gm IV q4 hours
- c/w ceftriaxone 2 gm IV q12hrs
- plan at least 6 weeks of IV antibiotics (through jul 29) and then likely suppression with amoxicillin given pacemaker
- continue bactrim (PJP ppx)
-double-lumen PICC in place
Urinary retention
- Straight cath vs castillo reinsertion
Chief Complaint
-: Bacteremia and Other (possible endocarditis)
Subjective / Review of Systems
is concerned pt not voiding.
Vital Signs / Physical Exam
Vital Signs
Vital Signs
Temp Pulse Resp BP Pulse Ox
97.4 F 87 18 137/77 96
06/26/24 03:14 06/26/24 08:14 06/26/24 08:14 06/26/24 06:00 06/26/24 08:14
Physical Exam
Constitutional: Comfortable
Cardiovascular: Regular Rate and S1/S2
Pulmonary: Clear
Gastrointestinal: Soft, Non Tender and Normal Bowel Sounds
Extremities: Edema
Neurological: Awake and Alert
Lines: PICC
Objective Data
Lab Data
Lab Results
06/26/24 03:00
06/26/24 03:00
APTT Cancelled 06/20/24 12:20
Estimated Creat Clear 80 ml/min 06/26/24 03:00
Total Bilirubin 0.6 mg/dl (0.2-1.3) 06/23/24 06:36
AST 26 U/L (17-59) 06/23/24 06:36
ALT 35 U/L (0-50) 06/23/24 06:36
Alkaline Phosphatase 56 U/L (38-126) 06/23/24 06:36
Most recent labs reviewed.
Micro Results:
06/16/24 15:48 Blood Culture - Final
Blood/Venous Enterococcus faecalis
Gram Stain - Final
06/18/24 12:46 Blood Culture - Final
Blood/Venous No Growth - Final Report
06/18/24 12:38 Blood Culture - Final
Blood/Venous No Growth - Final Report
06/16/24 15:52 Blood Culture - Final
Blood/Venous No Growth - Final Report
06/14/24 09:55 Blood Culture - Final
Blood/Venous Enterococcus faecalis
Gram Stain - Final
06/14/24 20:29 Blood Culture - Final
Blood/Venous Enterococcus faecalis
Gram Stain - Final
06/14/24 15:34 Influenza Types A & B (PEPE) - Final
Nasal Swab Negative for Influenza A & B, NAAT
Negative results must be combined with clinical observations
and patient history.
Nucleic Acid Amplification test (NAAT)performed on the
[employer] platform.
06/12/24 04:28 MRSA Screen - Final
Nose No Methicillin Resistant Staphylococcus aureus isolated.
Blood Culture Final 06/14/24
Enterococcus faecalis
Organism 1 Enterococcus faecalis

* This is an amended result. *
Due to physician's request for additional antibiotics.

A prior result that was reported as final has been changed.
1. Enterococcus faecalis
M.I.C. RX
--------- ---
Ampicillin <=2 S
Ciprofloxacin <=1 S
Gentamicin Synergy Screen <=500 S
Susceptible result indicates synergy is likely with a cell
wall active agent that is also susceptible
(e.g.ampicillin,penicillin,vancomycin)
Levofloxacin <=1 S
Tetracycline >8 R
Vancomycin 2 S
[2024-06-26] MEDS: LOVENOX 90 MG SC ×2 (09:14→21:50)
[2024-06-26] MEDS: STERILE WATER FOR INJECTION 20 ML IV ×2 (09:14→20:12)
[2024-06-26] MEDS: ROCEPHIN 2000 MG IV ×2 (09:14→20:12)
[2024-06-26] MEDS: FARXIGA 10 MG PO (09:15)
[2024-06-26] MEDS: ENTRESTO 24 MG/26 MG 1 TAB PO ×2 (09:15→20:12)
[2024-06-26] MEDS: BACTRIM 400 MG/80 MG 1 TABLET PO (09:16)
[2024-06-26] MEDS: LASIX 20 MG PO (09:16)
[2024-06-26] MEDS: VITAMIN B1 100 MG PO ×2 (09:16→20:16)
[2024-06-26] MEDS: PROTONIX 40 MG PO (09:16)
[2024-06-26] MEDS: FOLVITE 1 MG PO (09:16)
[2024-06-26] MEDS: COREG 6.25 MG PO ×2 (09:16→20:16)
[2024-06-26] MEDS: LOW STRENGTH ASPIRIN 81 MG PO (09:16)
[2024-06-26] MEDS: ALDACTONE 12.5 MG PO (09:17)
[2024-06-26] MEDS: DELTASONE 30 MG PO (09:17)
[2024-06-26] MEDS: FLOMAX 0.4 MG PO (09:17)
[2024-06-26] MEDS: PACERONE 200 MG PO (09:19)
--- NOTE | 2024-06-26 09:30 | PTOTSP ---
Speech Language Pathology
Pt seen for therapeutic reassessment of cognitive-linguistic abilities via the Nba Cognitive Assessment (MOCA), version 8.2. Pt with a score of 21/30 where normal range is 26-30. Mod cognitive deficits noted. Decreased attention to task and
impulsivity noted.
Pt also seen for dysphagia tx with breakfast tray of IDDSI 6/mildly thick liquids. Impulsive rate of intake noted with hand over hand cueing needed at times to stop pt from taking more when mouth was full. Oral residue frequently noted on L. Pt
attempting to clear with lingual sweep at times, but required verbal cueing to fully clear. Liquid wash appeared most effective at clearing oral residue this date. Significant labial leakage of thin liquids via cup. Minimal labial leakage with
liquids via straw.
Recommend:
1. Continue IDDSI L6 Soft and Bite Sized, IDDSI Level 2 Mildly Thick Liquids
2. Medications: crushed in puree if medically cleared
3. Strategies: upright to 90 degrees, full supervision and assistance, small single sips/bites, check for oral clearance (lingual sweep and/or liquid wash to assist), reflux precautions
4. Oral care 3x daily
5. Aspiration Risk Hydration Protocol - unlimited ice chips after oral care with supervision
6. RECONCILIATION MACHINE OPERATOR to continue to follow for dysphagia tx, speech therapy, and cognitive-linguistic tx
--- NOTE | 2024-06-26 10:06 | W.PN.HOSP.TC ---
Today's Communication/Plan
-
Castillo catheter. Continue anticoagulation. Continue antibiotics.
Assessment / Plan
Assessment / Plan
Physical exam:
General: Acute on chronically ill
HEENT: Normocephalic, Atraumatic and Moist Mucous Membranes
Respiratory: Clear to Auscultation; Negative Wheezes, Rales or Rhonchi
Cardiac: Regular Rhythm and S1/S2
GI: Soft, Nontender and Nondistended
Musculoskeletal: No Clubbing, No Cyanosis and No Edema
Neuro: Awake, Alert and Oriented, left hemiparesis.
Psych: Calm
A/P:
74yo M with PMhx of HTN, Afib, HLD, GERD, COPD, HFmrEF s/p ICD, chronic steroids, came with sudden onset of L hemiparesis, found acute R MCA embolic stroke and R SUE embolic stroke, bacteremia with E.faecalis with concern for endocarditis. ID
started Abx and recommended CT abd, that accidentally showed concern for PVT and pulmonary embolism. Restarted on anticoagulation as of 06/18/24 after neurology reviewed repeated CT - petechial hemorrhages are not contraindication to AC. Since CVA
on Xarelto - hematology advised Lovenox vs Warfarin. Thrombophilia workup also started. Ordered PICC to cont Abx for 6 weeks and after that to be on chronic suppression 2/2 presence of PPM. No initial source of infection found - needs outpatient EGD
and colonoscopy
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
#R frontal meningioma 1.3cm
ASA, statin
Repeat MRI in 1 year, outpatient neuroSx consult
Xarelto initially stopped to avoid early bleeding transformation - advised to restart anticoagulation on 06/18/[address] head reviewed by neurologist
HgbA1c 5.8%
LDL 101
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
#Bacteremia, concern for endocarditis
Enterococcus faecalis (ampicillin-sensitive) bacteremia, repeated neg Bcx, PICC to be placed
Possible endocarditis
Cardiology evaluated: repeat serial TTE since high risk for SARINA
ID consult - cont Abx (Ampicillin+Ceftriaxone), after IV antibiotics he will need to be on oral antibiotics with amoxicillin for suppression given pacemaker. CT abd/pelvis without definite signs of the source, recommend outpatient EGD/Colonoscopy
#Possible pulmonary embolism within the visualized right main pulmonary artery
#Non-occlusive acute LLE DVT
#PVT thrombosis
Will start heparin anticoagulation as discussed with neurology - CT head repeated on 06/18/24 showed petechial hemorrhages due to known strokes, however those are not absolute contraindication for anticoagulation
Heparin drip completed - switched to lovenox as per novelty chain maker advise. Thrombophilia eval ongoing. Hematology recommends switch Lovenox to DOAC.
poor opacification of the portal vein, but findings raise concern for thrombosis involving the right portal vein
to be on anticoagulation, confirmed on US RUQ
#b/l atelectasis
incentive spirometry
#CT showed Stranding of the fat surrounding the gallbladder
#Small gall bladder polyps with sludge
concern for acute cholecystitis, however clinically no symptoms, LFT normal. US RUQ reasonable neg for cholecystitis
#Two focal splenic infarcts
Thromboembolic?
#Hematuria
#Acute urinary retention
now on Castillo
Hematuria 2/2 traumatic castillo, now resolved
TOV failed 06/20/24
Urology as outpatient for cystoscopy
#Small left adrenal gland mass, stable, likely an adenoma.
Right adrenal gland mass,
was not present on CT scan in 2008
Continued follow-up is recommended.
#Dysphagia
VSE passed, diet started
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
#Acute metabolic encephalopathy
2/2 CVA
#EMEKA
resolved
follow Cr
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
#Afib, paroxysmal
#COPD not in exacerbation
#Sarcoidosis on chronic steroids
#Alcohol use d/o
cont home meds
THiamine/folate
#Mild thrombocytopenia, reactive
follow CBC
DVT ppx Xarelto
Full code
Discussed with at bedside today on 06/26/2024. Discussed with hematology yesterday and they recommend to continue anticoagulation with Lovenox full dose and will reevaluate DOAC upon discharge-of note there are differences of opinions of both
novelty chain maker notes on my review one states that it is failure of Xarelto and the other one says is not--> will discuss with hematology tomorrow or upon discharge to confirm. Also Castillo catheter placed today for acute urinary retention and discussed
with that he will need to have a Castillo in place for another 1 to 2 weeks due to stroke and outpatient urology evaluation once he is more mobile.
Total time spent to see the patient, examine the patient, review data and lab results, discuss the treatment plan with patient, nursing staff around 55 minutes
Anticipated Discharge: > 48 hours
Subjective/Interval History
-
Date of Service: June 26, 2024
Patient having urinary retention today. Afebrile
Objective Data
-
Labs:
Laboratory Results
06/26/24
03:00
WBC 11.2 H
Hgb 10.4 L
Hct 32.4 L
Plt Count 163
Sodium 136
Potassium 4.2
Chloride 104
Carbon Dioxide 23
BUN 26 H
Creatinine 0.9
Glucose 112 H
Calcium 7.9 L
Vital Signs:
Vital Signs
Temp Pulse Resp BP Pulse Ox
98.2 F 73 18 140/50 96
06/26/24 07:47 06/26/24 09:19 06/26/24 08:14 06/26/24 09:19 06/26/24 08:14
I&O
06/25/24 06/26/24 06/27/24
06:59 06:59 06:59
Intake Total 1608 / 1608 1384 / 1384
Output Total 2099 / 2099 2200 / 2200
Balance -492 / -492 -816 / -816
--- NOTE | 2024-06-26 11:17 | PTCARENOTE ---
Assumed care of patient this morning. NIH 15, see flowsheet. at bedside and updated by . Pt still unable to void, bladder scanned for 560. TT to and he will order Marroquin catheter. Assessment, care and VS as charted.
[2024-06-26] MEDS: LIPITOR 80 MG PO (17:13)
--- NOTE | 2024-06-26 20:55 | PTCARENOTE ---
Pt received from previous RN. Pt AA0x3. NIH score remains 15, left sided hemiparesis present. pt took Hs pills in pudding crushed. Marroquin care, CHG bath, and oral care preformed. Pt inc of soft brown large BM. Marroquin draining yellow urine. Assessment
as documented.
[2024-06-27] VITALS (15 sets, daily range): BP systolic 121–171; BP diastolic 65–86; PULSE 77–78; O2SAT 94–95
[2024-06-27] MEDS: AMPICILLIN 108 MG IV ×6 (02:34→22:23)
[2024-06-27 04:32] LABS: Hematocrit 32.1 % (39.0-52.0); Hemoglobin 10.2 g/dL (13.0-18.0); Mean Corp Hgb Conc. 31.8 g/dL (33.0-37.0); Mean Corpuscular Hgb 30.6 pg (27.0-31.0); Mean Corpuscular Volume 96.4 fL (80.0-94.0); Mean Platelet Volume 12.5 fL (7.4-10.4); Platelet Count 156 10^3/uL (130-400); Red Blood Cell Count 3.33 10^6/uL (4.70-6.10); Red Cell Dist. Width 17.3 % (11.5-14.5); White Blood Cell Count 10.4 10^3/uL (4.8-10.8)
[2024-06-27 04:45] LABS: Blood Urea Nitrogen 20 mg/dl (9-20); Calcium 7.8 mg/dl (8.4-10.2); Carbon Dioxide 27 mmol/L (22-30); Chloride 102 mmol/L (98-107); Estimated Creatinine Clearance 80 ml/min; Glucose 94 mg/dl (70-99); Potassium 4.3 mmol/L (3.5-5.1); Sodium 134 mmol/L (135-145); eGFR > 60.00
[2024-06-27] MEDS: FOLVITE 1 MG PO (07:15)
[2024-06-27] MEDS: PACERONE 200 MG PO (07:15)
[2024-06-27] MEDS: LASIX 20 MG PO (07:15)
[2024-06-27] MEDS: COREG 6.25 MG PO ×2 (07:15→19:51)
[2024-06-27] MEDS: PROTONIX 40 MG PO (07:15)
[2024-06-27] MEDS: DELTASONE 30 MG PO (07:16)
[2024-06-27] MEDS: BACTRIM 400 MG/80 MG 1 TABLET PO (07:16)
[2024-06-27] MEDS: FARXIGA 10 MG PO (07:16)
[2024-06-27] MEDS: LOW STRENGTH ASPIRIN 81 MG PO (07:16)
[2024-06-27] MEDS: ENTRESTO 24 MG/26 MG 1 TAB PO ×2 (07:16→19:55)
[2024-06-27] MEDS: ALDACTONE 12.5 MG PO (07:17)
[2024-06-27] MEDS: STERILE WATER FOR INJECTION 20 ML IV ×2 (07:17→19:56)
[2024-06-27] MEDS: VITAMIN B1 100 MG PO ×2 (07:17→19:56)
[2024-06-27] MEDS: FLOMAX 0.4 MG PO (07:17)
[2024-06-27] MEDS: ROCEPHIN 2000 MG IV ×2 (07:17→19:55)
[2024-06-27] MEDS: SPIRIVA RESPIMAT 2.5 MCG 2 PUFF INH (07:21)
[2024-06-27] MEDS: TYLENOL 650 MG PO ×2 (07:21→19:57)
[2024-06-27] MEDS: SYMBICORT 80/4.5 MCG INHALER 2 PUFF INH ×2 (07:22→20:12)
--- NOTE | 2024-06-27 07:54 | W.PN.HOSP.TC ---
Today's Communication/Plan
-
Antibiotics. Anticoagulation. Rehab eval.
Assessment / Plan
Assessment / Plan
Physical exam:
General: Acute on chronically ill
HEENT: Normocephalic, Atraumatic and Moist Mucous Membranes
Respiratory: Clear to Auscultation; Negative Wheezes, Rales or Rhonchi
Cardiac: Regular Rhythm and S1/S2
GI: Soft, Nontender and Nondistended
Musculoskeletal: No Clubbing, No Cyanosis and No Edema
Neuro: Awake, Alert and Oriented, left hemiparesis.
Psych: Calm
A/P:
74yo M with PMhx of HTN, Afib, HLD, GERD, COPD, HFmrEF s/p ICD, chronic steroids, came with sudden onset of L hemiparesis, found acute R MCA embolic stroke and R SUE embolic stroke, bacteremia with E.faecalis with concern for endocarditis. ID
started Abx and recommended CT abd, that accidentally showed concern for PVT and pulmonary embolism. Restarted on anticoagulation as of 06/18/24 after neurology reviewed repeated CT - petechial hemorrhages are not contraindication to AC. Since CVA
on Xarelto - hematology advised Lovenox vs Warfarin. Thrombophilia workup also started. Ordered PICC to cont Abx for 6 weeks and after that to be on chronic suppression 2/2 presence of PPM. No initial source of infection found - needs outpatient EGD
and colonoscopy
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
#R frontal meningioma 1.3cm
ASA, statin
Repeat MRI in 1 year, outpatient neuroSx consult
Xarelto initially stopped to avoid early bleeding transformation -currently on full dose Lovenox due to multiple thromboembolic events during this hospital stay. Will discuss with hematology prior to discharge about definitive anticoagulation.
HgbA1c 5.8%
LDL 101
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
wants [facility] to reevaluate-discussed with case worker and will work on that end today
#Bacteremia, concern for endocarditis
Enterococcus faecalis (ampicillin-sensitive) bacteremia, repeated neg Bcx, PICC to be placed
Possible endocarditis
Cardiology evaluated: repeat serial TTE since high risk for SARINA
ID consult - cont Abx (Ampicillin+Ceftriaxone), after IV antibiotics he will need to be on oral antibiotics with amoxicillin for suppression given pacemaker. CT abd/pelvis without definite signs of the source, recommend outpatient EGD/Colonoscopy
wbc down to 10.4 today
#Possible pulmonary embolism within the visualized right main pulmonary artery
#Non-occlusive acute LLE DVT
#PVT thrombosis
Given heparin drip- CT head repeated on 06/18/24 showed petechial hemorrhages due to known strokes, however those are not absolute contraindication for anticoagulation
Heparin drip completed - switched to Lovenox as per cook relief advise. Thrombophilia eval ongoing. Hematology recommends switch Lovenox to DOAC upon discharge.
poor opacification of the portal vein, but findings raise concern for thrombosis involving the right portal vein
to be on anticoagulation, confirmed on US RUQ
Hb stable at 10.2 today
#b/l atelectasis
incentive spirometry
#CT showed Stranding of the fat surrounding the gallbladder
#Small gall bladder polyps with sludge
concern for acute cholecystitis, however clinically no symptoms, LFT normal. US RUQ reasonable neg for cholecystitis
#Two focal splenic infarcts
Thromboembolic?
#Hematuria
#Acute urinary retention
now on Castillo
Hematuria 2/2 traumatic castillo, now resolved
TOV failed 06/26/24
Urology as outpatient for cystoscopy
#Small left adrenal gland mass, stable, likely an adenoma.
Right adrenal gland mass,
was not present on CT scan in 2008
Continued follow-up is recommended.
#Dysphagia
VSE passed, diet started
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
#Acute metabolic encephalopathy
2/2 CVA
#EMEKA
resolved
follow Cr
Cr stable at 0.9 today
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
#Afib, paroxysmal
#COPD not in exacerbation
#Sarcoidosis on chronic steroids
#Alcohol use d/o
cont home meds
THiamine/folate
#Mild thrombocytopenia, reactive
follow CBC
DVT ppx Xarelto
Full code
Anticipated Discharge: 24 - 48 hours
Subjective/Interval History
-
Date of Service: June 27, 2024
No new events. Afebrile.
Objective Data
-
Labs:
Laboratory Results
06/27/24
04:02
WBC 10.4
Hgb 10.2 L
Hct 32.1 L
Plt Count 156
Sodium 134 L
Potassium 4.3
Chloride 102
Carbon Dioxide 27
BUN 20
Creatinine 0.9
Glucose 94
Calcium 7.8 L
Vital Signs:
Vital Signs
Temp Pulse Resp BP Pulse Ox
98.1 F 79 16 121/73 96
06/27/24 06:12 06/27/24 07:35 06/27/24 07:35 06/27/24 07:17 06/27/24 07:35
I&O
06/26/24 06/27/24 06/28/24
06:59 06:59 06:59
Intake Total 1384 / 1384 804 / 804
Output Total 2200 / 2200 2500 / 2500
Balance -816 / -816 -1696 / -1696
--- NOTE | 2024-06-27 09:04 | W.PN.ONC2 ---
Today's Communication / Plan
-
Bacteremia and suspicion for widespread septic emboli noted, unclear if any thromboses are bland
With his h/o VTE and risk for future VTE, would continue LMWH through at least completion of IVabx, however, not necessarily a DOAC failure
Okay to go back to DOAC once acute issues improve, completion of IV abx (unless pending thrombophilia work-up suggests otherwise)
Monitor for bleeding
at bedside provided updates
Impression
Impression
MCA CVA on Xarelto 20mg daily
Multiple areas of thrombosis of indeterminate age including spleen, portal vein and pulmonary artery. 06/18 US LLE Nonocclusive DVT. Concern for septic emboli.
Hx PE 1999
Lupus anticoagulant, anticardiolipin negative. [id number] pending.
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
Sarcoidosis, Immunosuppression on steroids and PJP prophyalxis
morbid obesity
HFrEF
right adrenal gland mass. left adrenal adenoma
Plan
Plan
Thromboses in multiple locations of indeterminate age. Although septic emboli increases risk of bleeding, I believe pt risk of thrombosis with immobility, hx VTE warrants use of therapeutic anticoagulation at this time with close monitoring for
bleeding.
I do not think that this is a clear DOAC failure since possible septic emboli related to bacteremia/endocarditis
MCA CVA
Anticardiolipin antibody and LA negative
Beta-2 glycoprotein antibody pending
Lupus anticoagulate pending
agree with Lovenox 1 mg/kg SQ BID while hospitalized
Repeat CT ab/pelvis 3-6 months for continued right adrenal mass surveillance
abx per ID
Subjective/Objective
Subjective
denies bleeding
Vital Signs:
Vital Signs
Temp Pulse Resp BP Pulse Ox
98.3 F 79 16 121/73 95
06/27/24 07:21 06/27/24 07:35 06/27/24 07:35 06/27/24 07:17 06/27/24 08:14
Lab Results:
Laboratory Data
WBC 10.4 10^3/uL (4.8-10.8) 06/27/24 04:02
Hgb 10.2 g/dL (13.0-18.0) L 06/27/24 04:02
Plt Count 156 10^3/uL (130-400) 06/27/24 04:02
APTT Cancelled 06/20/24 12:20
eGFR > 60.00 06/27/24 04:02
Physical Exam
HEENT: Moist Mucous Membranes; No Jaundice
Cardiology: Normal Sinus Rhythm
Pulmonary: Clear
GI: Soft
Extremities: Pulses Present; No Edema
Neuro: Other (left hemiparesis)
--- NOTE | 2024-06-27 09:49 | W.PN.ID1 ---
Date of Service
Date of Service: June 27, 2024
Today's Communication
Continue abx's.
Assessment / Plan
Enterococcal faecalis Bacteremia - sustained 06/14-06/16
Acute strokes right MCA- suspect septic emboli
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
Sarcoidosis
Immunosuppression on high dose steroids and PJP prophyalxis
Pacemaker in place
- 06/18 blood cultures x2 in progress no growth to date
- 06/16 blood cultures 1 of 2 sets: enterococcus
- 06/14 blood cultures x2 from two different draws both with enterococcus
- ua no pyuria, urine is not the source
- CT a/p with contrast: concern for PE, possible portal vein thrombus, two focal splenic infarcts, fat stranding seen around gallbladder but normal LFTs,
- eventual egd/colonoscopy recommended outpatient
- repeat echo 06/20: no significant change, no vegetations
- c/w ampicillin to 2 gm IV q4 hours
- c/w ceftriaxone 2 gm IV q12hrs
- plan at least 6 weeks of IV antibiotics (through Jul 29) and then likely suppression with amoxicillin given pacemaker
- continue bactrim (PJP ppx)
-double-lumen PICC in place
Urinary retention
- Failed voiding trial.
- Marroquin re-inserted 06/26/24.
Chief Complaint
-: Bacteremia and Other (possible endocarditis)
Subjective / Review of Systems
Per , pt appears to get stronger everyday.
She is requesting [facility] to re-evaluate him for intense rehab.
Vital Signs / Physical Exam
Vital Signs
Vital Signs
Temp Pulse Resp BP Pulse Ox
98.3 F 79 19 151/78 93
06/27/24 07:21 06/27/24 08:00 06/27/24 08:00 06/27/24 08:00 06/27/24 09:21
Physical Exam
Constitutional: Comfortable
Cardiovascular: Regular Rate and S1/S2
Pulmonary: Clear
Gastrointestinal: Soft, Non Tender and Normal Bowel Sounds
Extremities: Edema
Neurological: Awake and Alert
Lines: PICC
Objective Data
Lab Data
Lab Results
06/27/24 04:02
06/27/24 04:02
APTT Cancelled 06/20/24 12:20
Estimated Creat Clear 80 ml/min 06/27/24 04:02
Total Bilirubin 0.6 mg/dl (0.2-1.3) 06/23/24 06:36
AST 26 U/L (17-59) 06/23/24 06:36
ALT 35 U/L (0-50) 06/23/24 06:36
Alkaline Phosphatase 56 U/L (38-126) 06/23/24 06:36
Most recent labs reviewed.
Micro Results:
06/16/24 15:48 Blood Culture - Final
Blood/Venous Enterococcus faecalis
Gram Stain - Final
06/18/24 12:46 Blood Culture - Final
Blood/Venous No Growth - Final Report
06/18/24 12:38 Blood Culture - Final
Blood/Venous No Growth - Final Report
06/16/24 15:52 Blood Culture - Final
Blood/Venous No Growth - Final Report
06/14/24 09:55 Blood Culture - Final
Blood/Venous Enterococcus faecalis
Gram Stain - Final
06/14/24 20:29 Blood Culture - Final
Blood/Venous Enterococcus faecalis
Gram Stain - Final
06/14/24 15:34 Influenza Types A & B (PEPE) - Final
Nasal Swab Negative for Influenza A & B, NAAT
Negative results must be combined with clinical observations
and patient history.
Nucleic Acid Amplification test (NAAT)performed on the
[employer] platform.
06/12/24 04:28 MRSA Screen - Final
Nose No Methicillin Resistant Staphylococcus aureus isolated.
Blood Culture Final 06/14/24
Enterococcus faecalis
Organism 1 Enterococcus faecalis

* This is an amended result. *
Due to physician's request for additional antibiotics.

A prior result that was reported as final has been changed.
1. Enterococcus faecalis
M.I.C. RX
--------- ---
Ampicillin <=2 S
Ciprofloxacin <=1 S
Gentamicin Synergy Screen <=500 S
Susceptible result indicates synergy is likely with a cell
wall active agent that is also susceptible
(e.g.ampicillin,penicillin,vancomycin)
Levofloxacin <=1 S
Tetracycline >8 R
Vancomycin 2 S
Care Review
Plan reviewed with: Physician (Dr. Zazueta)
[2024-06-27] MEDS: LOVENOX 90 MG SC ×2 (10:02→22:27)
--- NOTE | 2024-06-27 11:08 | CM ---
Patient with Dx strokes with left hemiparesis, possible PE, DVT LLE, suspected endocarditis. O2 2L. Receiving IV Abx via PICC- - per ID notes plan at least 6 weeks of IV antibiotics. Failed voiding trial - castillo. ST - dysphagia diet. PT 06/26
recommends acute rehab. OT Eval 06/25 recommends SNF vs. acute. Physiatry Consult noted 06/21; recommendation TBD.
Case discussed [facility] Liaison.
Update to Dr Marbin moore; d/c planning.
Script in chart for continuation of IV Abx after d/c.
Met with patient and Corie; patient conversant. Patient & asking if he can be approved for [facility], with saying she feels patient is making progress with therapy - reviewed PT/OT notes with her. Informed them that PT/OT will work with
the patient today and Dr Richardson from [facility] agrees to see him for re-eval.
Plan follow up after Physiatry Re-eval.
[2024-06-27] MEDS: LIPITOR 80 MG PO (17:18)
--- NOTE | 2024-06-27 18:04 | PTCARENOTE ---
Pt received from IMU at 1800. Pt transferred from stretcher to bed. Pt a&ox3. Pt with known left sided flaccidity from stroke. at bedside. NIH completed. Will continue to monitor.
[2024-06-27 23:29] LABS: Beta-2-Glycoprotein I Ab. IgG <10 SGU (<=20); Beta-2-Glycoprotein I Ab. IgM 17 SMU (<=20)
[2024-06-28] MEDS: AMPICILLIN 108 MG IV ×6 (01:22→22:27)
[2024-06-28] MEDS: TYLENOL 650 MG PO ×3 (02:45→17:39)
[2024-06-28 03:47] VITALS: BP 163/76
[2024-06-28 05:21] LABS: Hematocrit 30.8 % (39.0-52.0); Mean Corp Hgb Conc. 32.5 g/dL (33.0-37.0); Mean Corpuscular Hgb 30.7 pg (27.0-31.0); Mean Corpuscular Volume 94.5 fL (80.0-94.0); Mean Platelet Volume 12.4 fL (7.4-10.4); Platelet Count 144 10^3/uL (130-400); Red Blood Cell Count 3.26 10^6/uL (4.70-6.10); Red Cell Dist. Width 17.3 % (11.5-14.5); White Blood Cell Count 13.7 10^3/uL (4.8-10.8)
[2024-06-28 05:30] LABS: Blood Urea Nitrogen 18 mg/dl (9-20); Calcium 7.9 mg/dl (8.4-10.2); Carbon Dioxide 26 mmol/L (22-30); Chloride 102 mmol/L (98-107); Estimated Creatinine Clearance 80 ml/min; Glucose 89 mg/dl (70-99); Sodium 135 mmol/L (135-145); eGFR > 60.00
[2024-06-28 05:54] VITALS: BMI 31.7
[2024-06-28 07:35] VITALS: BP 121/65
--- NOTE | 2024-06-28 07:52 | W.PN.REHAB ---
Today's Communication / Plan
-
CVA: Secondary prophylaxis with aspirin, statin, and blood pressure control (SBP less than 180 and diastolic less than 100 to participate with therapy for ischemic stroke). Continue to monitor neurologic status.
Left nondominant hemiparesis: High risk for falls and sliding out of chair/bed. Safety reinforced.
- Avoid using affected arm to help lift or pull patient as this will cause trauma to the shoulder.
-Left foot Multi-Podus boot suggested with kickstand laterally
Left Neglect: makes patient at increased risk for falls.� Will need therapy to work on scanning of environment for safe navigation.
Dysphagia: speech, oral care protocol, chlorhexidine rinse after meals and HS, aspiration precautions.� Advance soft and bite-size with mildly thick liquid diet as tolerated.
Dysarthria: speech
Bacteremia with concern for endocarditis: Will continue antibiotics of ampicillin and ceftriaxone through 07/29/2024 per ID.
-Persistent leukocytosis.
-Bactrim for PJP prophylaxis
-Chronic steroid use for sarcoidosis makes him at high risk of infection
Acute Left lower extremity DVT, possible pulmonary embolism concern for multiple infarcts including splenic: Followed by hematology with hypercoagulable workup ordered. To continue on Lovenox treatment dose twice daily while in the hospital. Not
necessarily a failure of DOAC.
Anemia: Likely multifactorial, has been stable in the 10 range, monitor.
Bowel: Colace and Senna, PRN bisacodyl.
Bladder: Urinary retention, on Flomax. Has Marroquin. Void trial with time void, PVRs, PRN straight cath in rehab.
Discharge Destination: Acute inpatient rehabilitation
Assessment/Function
-
Assessment:
Physical Exam:
General Appearance/Observation: Well-developed, well-nourished male in no apparent distress.
Pain/Comfort Assessment: Denies
Mood/Affect: Appropriate
Integumentary/Operative Site: Has ecchymosis over bilateral arms and legs, with skin tear and oozing left forearm
�� Pressure Ulcer Evaluation: absent over heels.
Eyes: Conjunctiva/Lids: normal ��� Pupils: pupils equal round and reactive to light and Accommodation
Ears/Nose/Throat: oral mucosa moist,� throat clear.������������ Lips/Teeth/Gums: normal
Neck: No muscle spasm or tenderness
Cardiovascular: Heart: regular, no murmur
Pulses: dorsalis pedis 2+ bilaterally
Respiratory: Respiratory Effort/Chest Expansion: normal ������ Auscultation: Clear to auscultation bilaterally
Gastrointestinal: abdomen not tender, no distension, normal abdominal bowel sounds
Genitourinary: Marroquin with yellow urine
Rectal Exam: Deferred
Extremities: Edema: Minimal left arm and leg. Cyanosis: None Trophic changes: Mild hemostasis changes right belle, left foot
Neurology Exam:
Orientation: Alert, Oriented to self, Time, Place
Memory: Intact for recent medical concerns
Repetition: Intact
Comprehension: Intact for basic information, impaired for more complex.
Two step command: Intact
Cranial Nerves:
�� CNII: Pupillary light reflex: Intact��� Visual Field: Left homonymous hemianopsia versus neglect
�� CN III, IV, : Extraocular muscles: Intact
�� CN V: Facial Sensation at Forehead: Intact, Maxilla: Intact, Mandible: Intact
�� CN VII: Facial movement: Left facial weakness
�� CN VIII: Hearing: Normal
�� CN IX/X: Speech & swallow: Dysphagia, mild dysarthria, Position of Uvula: Slight left deviation
�� CN XI: Shoulder shrug: Absent of the left
�� CN XII: Tongue protrusion: Slight left deviation
Sensory:
�� Light touch: Unable to tell patient says left right left right for both arms and legs even if not being touched.
Reflexes:
�� Biceps: 2+ bilaterally
�� Brachioradialis: 2+ bilaterally
�� Triceps: 2+ bilaterally
�� Patellar: 2+ bilaterally
�� Achilles: 2+ bilaterally
�� Babinski: Down going bilaterally
�� Clonus: None
�� Chele: Negative bilaterally
Cerebellar: Dysmetria/Ataxia: None on the right, left too weak to test
Musculoskeletal:Motor: (Manual muscle scale 0-5)
Muscle SA EF WE EE FF FA HF KE DF EHL PF
Right� 5 5 5 5 5 4 2 5 5 5 5
Left 0 0 0 0 0 0 0 0 0 0 0
Tone: Normal in all extremities
Range of Motion: Passively within normal limits in all extremities
Function:
Bed Mobility: Dependent
Transfers: Not able to participate
Ambulation:
Steps:
ADL's: Max assist eating and grooming, dependent upper lower extremity dressing.
Plan
-
Assessment
74 y/o M PMH(HTN, Afib, HLD, GERD, COPD, HFmrEF s/p ICD, chronic steroids) with 06/11/2024 acute embolic right MCA and right SUE CVA, right frontal meningioma, bacteremia with endocarditis, nonocclusive acute left lower extremity DVT with possible
pulmonary embolism on therapeutic Lovenox, urinary retention and stable small left adrenal gland mass likely an adenoma resulting in ADL, ambulatory, speech, and swallow dysfunction.
Plan
PM&R PT/OT to increase independence with ADLs, improve balance, coordination, endurance, strength, mobility, community reintegration, decreased burden of care on others and family education.
CVA: Secondary prophylaxis with aspirin, statin, and blood pressure control (SBP less than 180 and diastolic less than 100 to participate with therapy for ischemic stroke). Continue to monitor neurologic status.
Left nondominant hemiparesis: High risk for falls and sliding out of chair/bed. Safety reinforced.
- Avoid using affected arm to help lift or pull patient as this will cause trauma to the shoulder.
-Left foot Multi-Podus boot suggested with kickstand laterally
Left Neglect: makes patient at increased risk for falls.� Will need therapy to work on scanning of environment for safe navigation.
Dysphagia: speech, oral care protocol, chlorhexidine rinse after meals and HS, aspiration precautions.� Advance soft and bite-size with mildly thick liquid diet as tolerated.
Dysarthria: speech
Bacteremia with concern for endocarditis: Will continue antibiotics of ampicillin and ceftriaxone through 07/29/2024 per ID.
-Persistent leukocytosis.
-Bactrim for PJP prophylaxis
-Chronic steroid use for sarcoidosis makes him at high risk of infection
Sarcoidosis: chronic prednisone 30 mg
HTN: coreg, lasix, spironolactone, Entresto, monitor closely with permissive hypertension
HLD: Statin������
Atrial fibrillation:�Lovenox anticoagulation and Coreg/amiodarone rate control medications.������������������������������������������
CHF: EF 50�55%, coreg, lasix, spironolactone, Entresto, monitor fluid status. Jose has ICD.
Acute Left lower extremity DVT, possible pulmonary embolism concern for multiple infarcts including splenic: Followed by hematology with hypercoagulable workup ordered. To continue on Lovenox treatment dose twice daily while in the hospital. Not
necessarily a failure of DOAC.
Anemia: Likely multifactorial, has been stable in the 10 range, monitor.
FEN: Per dysphagia
Psych: Psychology consult if available.� Monitor mood, adjust medications as needed.
Skin: monitor for pressure sores/rashes/lesions.
Pain: acetaminophen as needed.
Bowel: Colace and Senna, PRN bisacodyl.
Bladder: Urinary retention, on Flomax. Has Marroquin. Void trial with time void, PVRs, PRN straight cath in rehab.
GI Prophylaxis: Pantoprazole
Pulmonary: Incentive spirometry
Obesity: Continue to clinical counselor patient about diet adjustments to control obesity. Body habitus and increased force to move body and extremities causes further difficulty with functional tasks.
Safety: Continue to reinforce assistance with all transfers.
Code Status:� Full code
Dispo (date/plan/equipment needs): Home with family care.
Discharge Destination: Acute inpatient rehabilitation
Functional and Medical Goals: Modified Independent with ADL�s, ambulation, transfers
-A total of 50 minutes were spent with the patient preparing for the evaluation, obtaining history, performing examination and evaluation, counseling, data review, case management, care coordination, supervisor border department, and EMR documentation. Reviewed
rehab options, stroke recovery, overall planning and dealing with dysphagia/medical concerns.
Thank you for allowing me to care for your patient. Please contact me with any questions or concerns.
Subjective
-
Date of Service: June 28, 2024
Patient seen and examined today. Overall continues to make progress. Patient's at bedside as well. He does that he had a stroke and that he had an infection and may have been related to clotting of the stroke. He knows he needs to take
antibiotics for a while as well as Lovenox. He still having difficulty with pain attention to the left side and not being able to move the left side. He is anxious to get into more intensive therapy so that he can get better and recover. He
denies any pain concerns. Denies any fevers, chills, chest pain, shortness of breath, nausea, vomiting, abdominal pain, pain at Marroquin, or diarrhea. Tolerating therapy.
Vital Signs / Labs
-
Vital Signs and Labs:
Temp Pulse Resp BP Pulse Ox
97.6 F 67 20 121/65 96
06/28/24 07:35 06/28/24 07:35 06/28/24 07:35 06/28/24 07:35 06/28/24 07:35
06/28/24 04:39
06/28/24 04:39
06/28/24
04:39
WBC 13.7 H
RBC 3.26 L
Hgb 10.0 L
Hct 30.8 L
MCV 94.5 H
MCHC 32.5 L
RDW 17.3 H
MPV 12.4 H
Calcium 7.9 L
[2024-06-28] MEDS: SPIRIVA RESPIMAT 2.5 MCG 2 PUFF INH (08:04)
[2024-06-28] MEDS: SYMBICORT 80/4.5 MCG INHALER 2 PUFF INH ×2 (08:04→20:40)
[2024-06-28] MEDS: DELTASONE 30 MG PO (08:41)
[2024-06-28] MEDS: BACTRIM 400 MG/80 MG 1 TABLET PO (08:43)
[2024-06-28] MEDS: ENTRESTO 24 MG/26 MG 1 TAB PO ×2 (08:44→20:27)
[2024-06-28] MEDS: COREG 6.25 MG PO ×2 (08:44→20:24)
[2024-06-28] MEDS: VITAMIN B1 100 MG PO ×2 (08:44→20:29)
[2024-06-28] MEDS: FARXIGA 10 MG PO (08:44)
[2024-06-28] MEDS: ALDACTONE 12.5 MG PO (08:45)
[2024-06-28] MEDS: FLOMAX 0.4 MG PO (08:45)
[2024-06-28] MEDS: LASIX 20 MG PO (08:46)
[2024-06-28] MEDS: FOLVITE 1 MG PO (08:46)
[2024-06-28] MEDS: PROTONIX 40 MG PO (08:46)
[2024-06-28] MEDS: REFRESH EYE DROPS (PF) 1 DROPS BOTH EYES (08:47)
[2024-06-28] MEDS: PACERONE 200 MG PO (08:47)
[2024-06-28] MEDS: LOW STRENGTH ASPIRIN 81 MG PO (08:48)
[2024-06-28] MEDS: ROCEPHIN 2000 MG IV ×2 (08:49→20:28)
[2024-06-28] MEDS: STERILE WATER FOR INJECTION 20 ML IV ×2 (08:49→20:28)
[2024-06-28] MEDS: FLUSH (NSS) 2 FLUSH IV (08:52)
--- NOTE | 2024-06-28 08:57 | W.PN.ONC2 ---
Today's Communication / Plan
-
Okay to go back to DOAC once acute issues improve, completion of IV abx
Monitor for bleeding
Impression
Impression
MCA CVA on Xarelto 20mg daily
Multiple areas of thrombosis of indeterminate age including spleen, portal vein and pulmonary artery. 06/18 US LLE Nonocclusive DVT. Concern for septic emboli.
Hx PE 1999
Lupus anticoagulant, [id number], anticardiolipin negative, APLS panel negative
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
Sarcoidosis, Immunosuppression on steroids and PJP prophyalxis
morbid obesity
HFrEF
right adrenal gland mass. left adrenal adenoma
Plan
Plan
Thromboses in multiple locations of indeterminate age, likely septic emboli. Although septic emboli increases risk of bleeding, I believe pt risk of thrombosis with immobility, hx VTE warrants use of therapeutic anticoagulation at this time with
close monitoring for bleeding.
I do not think that this is a clear DOAC failure since possible septic emboli related to bacteremia/endocarditis
MCA CVA
agree with Lovenox 1 mg/kg SQ BID while hospitalized
Repeat CT ab/pelvis 3-6 months for continued right adrenal mass surveillance
abx per ID
Subjective/Objective
Subjective
no new complaints
Vital Signs:
Vital Signs
Temp Pulse Resp BP Pulse Ox
97.6 F 68 16 121/65 96
06/28/24 07:35 06/28/24 08:05 06/28/24 08:05 06/28/24 07:35 06/28/24 08:05
Lab Results:
Laboratory Data
WBC 13.7 10^3/uL (4.8-10.8) H 06/28/24 04:39
Hgb 10.0 g/dL (13.0-18.0) L 06/28/24 04:39
Plt Count 144 10^3/uL (130-400) 06/28/24 04:39
APTT Cancelled 06/20/24 12:20
eGFR > 60.00 06/28/24 04:39
Physical Exam
HEENT: Moist Mucous Membranes; No Jaundice
Cardiology: Normal Sinus Rhythm
Pulmonary: Clear
GI: Soft
Extremities: Pulses Present
[2024-06-28] MEDS: LOVENOX 90 MG SC ×2 (09:01→22:27)
--- NOTE | 2024-06-28 10:19 | W.PN.HOSP.TC ---
Today's Communication/Plan
-
Continue anticoagulation. Continue antibiotics.
Assessment / Plan
Assessment / Plan
Physical exam:
General: Acute on chronically ill
HEENT: Normocephalic, Atraumatic and Moist Mucous Membranes
Respiratory: Clear to Auscultation; Negative Wheezes, Rales or Rhonchi
Cardiac: Regular Rhythm and S1/S2
GI: Soft, Nontender and Nondistended
Musculoskeletal: No Clubbing, No Cyanosis and No Edema
Neuro: Awake, Alert and Oriented, left hemiparesis.
Psych: Calm
A/P:
74yo M with PMhx of HTN, Afib, HLD, GERD, COPD, HFmrEF s/p ICD, chronic steroids, came with sudden onset of L hemiparesis, found acute R MCA embolic stroke and R SUE embolic stroke, bacteremia with E.faecalis with concern for endocarditis. ID
started Abx and recommended CT abd, that accidentally showed concern for PVT and pulmonary embolism. Restarted on anticoagulation as of 06/18/24 after neurology reviewed repeated CT - petechial hemorrhages are not contraindication to AC. Since CVA
on Xarelto - hematology advised Lovenox vs Warfarin. Thrombophilia workup also started. Ordered PICC to cont Abx for 6 weeks and after that to be on chronic suppression 2/2 presence of PPM. No initial source of infection found - needs outpatient EGD
and colonoscopy
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
#R frontal meningioma 1.3cm
ASA, statin
Repeat MRI in 1 year, outpatient neuroSx consult
Xarelto initially stopped to avoid early bleeding transformation -currently on full dose Lovenox due to multiple thromboembolic events during this hospital stay. Will discuss with hematology prior to discharge about definitive anticoagulation.
HgbA1c 5.8%
LDL 101
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
wants [facility] to reevaluate-discussed with shelter case manager and will work on that end today
#Bacteremia, concern for endocarditis
Enterococcus faecalis (ampicillin-sensitive) bacteremia, repeated neg Bcx, PICC to be placed
Possible endocarditis
Cardiology evaluated: repeat serial TTE since high risk for SARINA
ID consult - cont Abx (Ampicillin+Ceftriaxone), after IV antibiotics he will need to be on oral antibiotics with amoxicillin for suppression given pacemaker. CT abd/pelvis without definite signs of the source, recommend outpatient EGD/Colonoscopy
wbc down to 10.4 today
#Possible pulmonary embolism within the visualized right main pulmonary artery
#Non-occlusive acute LLE DVT
#PVT thrombosis
Given heparin drip- CT head repeated on 06/18/24 showed petechial hemorrhages due to known strokes, however those are not absolute contraindication for anticoagulation
Heparin drip completed - switched to Lovenox as per stone crusher operator advise. Thrombophilia eval ongoing. Hematology recommends switch Lovenox to DOAC upon discharge.
poor opacification of the portal vein, but findings raise concern for thrombosis involving the right portal vein
to be on anticoagulation, confirmed on US RUQ
Hb stable at 10.2 today
#b/l atelectasis
incentive spirometry
#CT showed Stranding of the fat surrounding the gallbladder
#Small gall bladder polyps with sludge
concern for acute cholecystitis, however clinically no symptoms, LFT normal. US RUQ reasonable neg for cholecystitis
#Two focal splenic infarcts
Thromboembolic?
#Hematuria
#Acute urinary retention
now on Castillo
Hematuria 2/2 traumatic castillo, now resolved
TOV failed 06/26/24
Urology as outpatient for cystoscopy
#Small left adrenal gland mass, stable, likely an adenoma.
Right adrenal gland mass,
was not present on CT scan in 2008
Continued follow-up is recommended.
#Dysphagia
VSE passed, diet started
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
#Acute metabolic encephalopathy
2/2 CVA
#EMEKA
resolved
follow Cr
Cr stable at 0.9 today
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
#Afib, paroxysmal
#COPD not in exacerbation
#Sarcoidosis on chronic steroids
#Alcohol use d/o
cont home meds
THiamine/folate
#Mild thrombocytopenia, reactive
follow CBC
DVT ppx Xarelto
Full code
Anticipated Discharge: > 48 hours
Subjective/Interval History
-
Date of Service: June 28, 2024
Patient with no new complaints.
Objective Data
-
Labs:
Laboratory Results
06/28/24
04:39
WBC 13.7 H
Hgb 10.0 L
Hct 30.8 L
Plt Count 144
Sodium 135
Potassium 4.0
Chloride 102
Carbon Dioxide 26
BUN 18
Creatinine 0.9
Glucose 89
Calcium 7.9 L
Vital Signs:
Vital Signs
Temp Pulse Resp BP Pulse Ox
97.6 F 68 16 121/65 96
06/28/24 07:35 06/28/24 08:05 06/28/24 08:05 06/28/24 07:35 06/28/24 08:05
I&O
06/27/24 06/28/24 06/29/24
06:59 06:59 06:59
Intake Total 804 / 804 1368 / 1368 100 / 100
Output Total 2500 / 2500 1795 / 1795
Balance -1696 / -1696 -427 / -427 100 / 100
[2024-06-28 11:04] VITALS: BP 121/70
--- NOTE | 2024-06-28 13:18 | W.PN.ID1 ---
Date of Service
Date of Service: June 28, 2024
Today's Communication
Continue abx's as below.
Assessment / Plan
Enterococcal faecalis Bacteremia - sustained 06/14-06/16
Acute strokes right MCA- suspect septic emboli
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
Sarcoidosis
Immunosuppression on high dose steroids and PJP prophyalxis
Pacemaker in place
- 06/18 blood cultures x2 in progress no growth to date
- 06/16 blood cultures 1 of 2 sets: enterococcus
- 06/14 blood cultures x2 from two different draws both with enterococcus
- ua no pyuria, urine is not the source
- CT a/p with contrast: concern for PE, possible portal vein thrombus, two focal splenic infarcts, fat stranding seen around gallbladder but normal LFTs,
- eventual egd/colonoscopy recommended outpatient
- repeat echo 06/20: no significant change, no vegetations
- c/w ampicillin to 2 gm IV q4 hours
- c/w ceftriaxone 2 gm IV q12hrs
- plan at least 6 weeks of IV antibiotics (through Jul 29) and then likely suppression with amoxicillin given pacemaker
- continue bactrim (PJP ppx)
-double-lumen PICC in place
Urinary retention
- Failed voiding trial.
- Marroquin re-inserted 06/26/24.
Chief Complaint
-: Bacteremia and Other (possible endocarditis)
Subjective / Review of Systems
He is getting stronger.
Vital Signs / Physical Exam
Vital Signs
Vital Signs
Temp Pulse Resp BP Pulse Ox
98.4 F 76 20 121/70 97
06/28/24 11:04 06/28/24 11:04 06/28/24 11:04 06/28/24 11:04 06/28/24 11:04
Physical Exam
Constitutional: Comfortable
Gastrointestinal: Soft, Non Tender, Non Distended and Normal Bowel Sounds
Genito-Urinary: Marroquin and Clear Urine
Neurological: AO x 3
Lines: PICC
Objective Data
Lab Data
Lab Results
06/28/24 04:39
06/28/24 04:39
APTT Cancelled 06/20/24 12:20
Estimated Creat Clear 80 ml/min 06/28/24 04:39
Total Bilirubin 0.6 mg/dl (0.2-1.3) 06/23/24 06:36
AST 26 U/L (17-59) 06/23/24 06:36
ALT 35 U/L (0-50) 06/23/24 06:36
Alkaline Phosphatase 56 U/L (38-126) 06/23/24 06:36
Most recent labs reviewed.
Micro Results:
06/16/24 15:48 Blood Culture - Final
Blood/Venous Enterococcus faecalis
Gram Stain - Final
06/18/24 12:46 Blood Culture - Final
Blood/Venous No Growth - Final Report
06/18/24 12:38 Blood Culture - Final
Blood/Venous No Growth - Final Report
06/16/24 15:52 Blood Culture - Final
Blood/Venous No Growth - Final Report
06/14/24 09:55 Blood Culture - Final
Blood/Venous Enterococcus faecalis
Gram Stain - Final
06/14/24 20:29 Blood Culture - Final
Blood/Venous Enterococcus faecalis
Gram Stain - Final
06/14/24 15:34 Influenza Types A & B (PEPE) - Final
Nasal Swab Negative for Influenza A & B, NAAT
Negative results must be combined with clinical observations
and patient history.
Nucleic Acid Amplification test (NAAT)performed on the
[employer] platform.
06/12/24 04:28 MRSA Screen - Final
Nose No Methicillin Resistant Staphylococcus aureus isolated.
Blood Culture Final 06/14/24
Enterococcus faecalis
Organism 1 Enterococcus faecalis

* This is an amended result. *
Due to physician's request for additional antibiotics.

A prior result that was reported as final has been changed.
1. Enterococcus faecalis
M.I.C. RX
--------- ---
Ampicillin <=2 S
Ciprofloxacin <=1 S
Gentamicin Synergy Screen <=500 S
Susceptible result indicates synergy is likely with a cell
wall active agent that is also susceptible
(e.g.ampicillin,penicillin,vancomycin)
Levofloxacin <=1 S
Tetracycline >8 R
Vancomycin 2 S
[2024-06-28 15:18] VITALS: BP 115/61
--- NOTE | 2024-06-28 15:30 | CM ---
Chart reviewed. Pt is currently being recommended for rehab. PT/OT was determining SNF vs acute rehab.
Spoke w/ Keshawn/Marcin medical science liaison regarding pt's appropriateness for [facility].
Physiatry assessment completed. Per Dr. Richardson, pt is appropriate for acute inpatient rehab.
Will need auth
Updated hospitalist. Per Dr. Zazueta, pt will be ready for d/c Monday
Updated Keshawn/Marcin
Updated pt and spouse
Plan: [facility]- when stable and pending auth approval
[2024-06-28] MEDS: FLUSH (NSS) 1 FLUSH IV ×2 (15:39→18:36)
[2024-06-28] MEDS: LIPITOR 80 MG PO (17:36)
[2024-06-28 20:11] VITALS: BP 175/71
[2024-06-28 22:52] VITALS: BP 124/66
[2024-06-29] VITALS (8 sets, daily range): BP systolic 128–168; BP diastolic 67–79; PULSE 72; O2SAT 97; BMI 32.1
[2024-06-29] MEDS: AMPICILLIN 108 MG IV ×6 (01:13→21:38)
[2024-06-29] MEDS: SPIRIVA RESPIMAT 2.5 MCG 2 PUFF INH (08:08)
[2024-06-29] MEDS: SYMBICORT 80/4.5 MCG INHALER 2 PUFF INH ×2 (08:08→21:16)
[2024-06-29 08:10] LABS: Hematocrit 30.1 % (39.0-52.0); Hemoglobin 9.6 g/dL (13.0-18.0); Mean Corp Hgb Conc. 31.9 g/dL (33.0-37.0); Mean Corpuscular Volume 94.1 fL (80.0-94.0); Mean Platelet Volume 12.2 fL (7.4-10.4); Platelet Count 134 10^3/uL (130-400); Red Cell Dist. Width 17.6 % (11.5-14.5); White Blood Cell Count 9.5 10^3/uL (4.8-10.8)
[2024-06-29 08:11] LABS: Blood Urea Nitrogen 15 mg/dl (9-20); Calcium 7.8 mg/dl (8.4-10.2); Carbon Dioxide 26 mmol/L (22-30); Chloride 102 mmol/L (98-107); Estimated Creatinine Clearance 82 ml/min; Glucose 88 mg/dl (70-99); Sodium 133 mmol/L (135-145); eGFR > 60.00
[2024-06-29] MEDS: LOW STRENGTH ASPIRIN 81 MG PO (08:49)
[2024-06-29] MEDS: FLOMAX 0.4 MG PO (08:49)
[2024-06-29] MEDS: DELTASONE 30 MG PO (08:49)
[2024-06-29] MEDS: BACTRIM 400 MG/80 MG 1 TABLET PO (08:49)
[2024-06-29] MEDS: PROTONIX 40 MG PO (08:50)
[2024-06-29] MEDS: LASIX 20 MG PO (08:50)
[2024-06-29] MEDS: VITAMIN B1 100 MG PO ×2 (08:50→20:19)
[2024-06-29] MEDS: FARXIGA 10 MG PO (08:50)
[2024-06-29] MEDS: COREG 6.25 MG PO ×2 (08:51→20:18)
[2024-06-29] MEDS: ENTRESTO 24 MG/26 MG 1 TAB PO ×2 (08:51→20:19)
[2024-06-29] MEDS: FOLVITE 1 MG PO (08:51)
[2024-06-29] MEDS: ALDACTONE 12.5 MG PO (08:51)
[2024-06-29] MEDS: PACERONE 200 MG PO (08:52)
[2024-06-29] MEDS: ROCEPHIN 2000 MG IV ×2 (08:58→20:19)
[2024-06-29] MEDS: TYLENOL 650 MG PO (08:59)
[2024-06-29] MEDS: STERILE WATER FOR INJECTION 20 ML IV ×2 (08:59→20:19)
[2024-06-29] MEDS: FLUSH (NSS) 1 FLUSH IV ×2 (09:08→18:01)
[2024-06-29] MEDS: FLUSH (NSS) 2 FLUSH IV (09:09)
[2024-06-29] MEDS: REFRESH EYE DROPS (PF) 1 DROPS BOTH EYES (09:11)
[2024-06-29 09:14] LABS: % Basophils 0.1 % (0-2); % Eosinophils 0.4 % (0-6); % Immature Granulocytes 6.6 % (0-0.5); % Lymphocytes 8.1 % (20.5-51.1); % Monocytes 3.9 % (1.7-9.3); % Neutrophils 80.9 % (42.2-75.2); Absolute Immature Granulocytes 0.6 10^3/uL (0-0.05); Absolute Lymphocytes 0.8 10^3/uL (1.2-3.4); Absolute Monocytes 0.4 10^3/uL (0.1-0.6); Absolute Neutrophils 7.7 10^3/uL (1.4-6.5); Nucleated Red Blood Cells % 0.4 % (-)
--- NOTE | 2024-06-29 09:53 | W.PN.HOSP.TC ---
Today's Communication/Plan
-
Continue IV antibiotics. Continue anticoagulation
Assessment / Plan
Assessment / Plan
Physical exam:
General: Acute on chronically ill
HEENT: Normocephalic, Atraumatic and Moist Mucous Membranes
Respiratory: Clear to Auscultation; Negative Wheezes, Rales or Rhonchi
Cardiac: Regular Rhythm and S1/S2
GI: Soft, Nontender and Nondistended
Musculoskeletal: No Clubbing, No Cyanosis and No Edema
Neuro: Awake, Alert and Oriented, left hemiparesis.
Psych: Calm
A/P:
74yo M with PMhx of HTN, Afib, HLD, GERD, COPD, HFmrEF s/p ICD, chronic steroids, came with sudden onset of L hemiparesis, found acute R MCA embolic stroke and R SUE embolic stroke, bacteremia with E.faecalis with concern for endocarditis. ID
started Abx and recommended CT abd, that accidentally showed concern for PVT and pulmonary embolism. Restarted on anticoagulation as of 06/18/24 after neurology reviewed repeated CT - petechial hemorrhages are not contraindication to AC. Since CVA
on Xarelto - hematology advised Lovenox vs Warfarin. Thrombophilia workup also started. Ordered PICC to cont Abx for 6 weeks and after that to be on chronic suppression 2/2 presence of PPM. No initial source of infection found - needs outpatient EGD
and colonoscopy
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
#R frontal meningioma 1.3cm
ASA, statin
Repeat MRI in 1 year, outpatient neuroSx consult
Xarelto initially stopped to avoid early bleeding transformation -currently on full dose Lovenox due to multiple thromboembolic events during this hospital stay. Will discuss with hematology prior to discharge about definitive anticoagulation.
HgbA1c 5.8%
LDL 101
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
wants [facility] to reevaluate-discussed with case resource manager and will work on that end today
#Bacteremia, concern for endocarditis
Enterococcus faecalis (ampicillin-sensitive) bacteremia, repeated neg Bcx, PICC to be placed
Possible endocarditis
Cardiology evaluated: repeat serial TTE since high risk for SARINA
ID consult - cont Abx (Ampicillin+Ceftriaxone), after IV antibiotics he will need to be on oral antibiotics with amoxicillin for suppression given pacemaker. CT abd/pelvis without definite signs of the source, recommend outpatient EGD/Colonoscopy
wbc down to 10.4 today
#Possible pulmonary embolism within the visualized right main pulmonary artery
#Non-occlusive acute LLE DVT
#PVT thrombosis
Given heparin drip- CT head repeated on 06/18/24 showed petechial hemorrhages due to known strokes, however those are not absolute contraindication for anticoagulation
Heparin drip completed - switched to Lovenox as per interior design consultant advise. Thrombophilia eval ongoing. Hematology recommends switch Lovenox to DOAC upon discharge.
poor opacification of the portal vein, but findings raise concern for thrombosis involving the right portal vein
to be on anticoagulation, confirmed on US RUQ
Hb stable at 10.2 today
#b/l atelectasis
incentive spirometry
#CT showed Stranding of the fat surrounding the gallbladder
#Small gall bladder polyps with sludge
concern for acute cholecystitis, however clinically no symptoms, LFT normal. US RUQ reasonable neg for cholecystitis
#Two focal splenic infarcts
Thromboembolic?
#Hematuria
#Acute urinary retention
now on Castillo
Hematuria 2/2 traumatic castillo, now resolved
TOV failed 06/26/24
Urology as outpatient for cystoscopy
#Small left adrenal gland mass, stable, likely an adenoma.
Right adrenal gland mass,
was not present on CT scan in 2008
Continued follow-up is recommended.
#Dysphagia
VSE passed, diet started
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
#Acute metabolic encephalopathy
2/2 CVA
#EMEKA
resolved
follow Cr
Cr stable at 0.9 today
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
#Afib, paroxysmal
#COPD not in exacerbation
#Sarcoidosis on chronic steroids
#Alcohol use d/o
cont home meds
THiamine/folate
#Mild thrombocytopenia, reactive
follow CBC
DVT ppx Xarelto
Full code
Anticipated Discharge: 24 - 48 hours
Subjective/Interval History
-
Date of Service: June 29, 2024
No new complaints. Sensory deficit improving on the left.
Objective Data
-
Labs:
Laboratory Results
06/29/24 06/29/24
07:33 07:34
WBC 9.5
Hgb 9.6 L
Hct 30.1 L
Plt Count 134
Sodium 133 L
Potassium 4.0
Chloride 102
Carbon Dioxide 26
BUN 15
Creatinine 0.9
Glucose 88
Calcium 7.8 L
Vital Signs:
Vital Signs
Temp Pulse Resp BP Pulse Ox
97.9 F 68 16 168/67 98
06/29/24 07:15 06/29/24 08:08 06/29/24 08:08 06/29/24 07:15 06/29/24 08:08
I&O
06/28/24 06/29/24 06/30/24
06:59 06:59 06:59
Intake Total 1368 / 1368 1444 / 1444
Output Total 1795 / 1795 1650 / 1650
Balance -427 / -427 -206 / -206
[2024-06-29] MEDS: LOVENOX 90 MG SC ×2 (12:35→21:38)
--- NOTE | 2024-06-29 17:42 | PTCARENOTE ---
Addendum entered by Katherine Fletcher RN 06/29/24 18:32:
Sacral wound cleaned and redressed with foam pad mid morning after BM. Area was reddened with small open area.
Original Note:
Patient with multiple bleeding sites on bilateral arms. All except the L upper arm are pre-existing and were previously covered with a dressing. Midmorning, the R arm, above elbow was bleeding and redressed with adaptic and a foam pad. Around noon,
blood was observed on L side of gown near rib cage. It was coming from 2 very small spots on L inner arm above elbow. Mid afternoon while changing additional dressing, fresh blood was oberved on band aid near R wrist. redressed with adaptic and
gauze wrap. Dressing on R forearm was redressed the same as the R wrist. L forearm also redressed. All areas were cleansed with saline prior to being redressed. New limb alert bracelet applied to R arm. Injection site of Lovenox injection earlier
today was not bleeding. Other than sites noted on both arms, no other areas of bleeding visualized.
[2024-06-29] MEDS: LIPITOR 80 MG PO (18:01)
[2024-06-30] VITALS (7 sets, daily range): BP systolic 126–156; BP diastolic 61–83; BMI 31.9
[2024-06-30] MEDS: AMPICILLIN 108 MG IV ×6 (01:37→22:10)
[2024-06-30] MEDS: TYLENOL 650 MG PO (01:41)
[2024-06-30 06:22] LABS: Hematocrit 30.3 % (39.0-52.0); Hemoglobin 9.8 g/dL (13.0-18.0)
[2024-06-30 06:44] LABS: Blood Urea Nitrogen 14 mg/dl (9-20); Calcium 7.8 mg/dl (8.4-10.2); Carbon Dioxide 25 mmol/L (22-30); Chloride 101 mmol/L (98-107); Estimated Creatinine Clearance 92 ml/min; Glucose 82 mg/dl (70-99); Potassium 4.1 mmol/L (3.5-5.1); Sodium 135 mmol/L (135-145); eGFR > 60.00
[2024-06-30] MEDS: SYMBICORT 80/4.5 MCG INHALER 2 PUFF INH ×2 (08:23→20:59)
[2024-06-30] MEDS: SPIRIVA RESPIMAT 2.5 MCG 2 PUFF INH (08:23)
--- NOTE | 2024-06-30 08:31 | W.PN.HOSP.TC ---
Today's Communication/Plan
-
Continue anticoagulation per hematology. Continue IV antibiotics. Plan for acute rehab.
Assessment / Plan
Assessment / Plan
Physical exam:
General: Acute on chronically ill
HEENT: Normocephalic, Atraumatic and Moist Mucous Membranes
Respiratory: Clear to Auscultation; Negative Wheezes, Rales or Rhonchi
Cardiac: Regular Rhythm and S1/S2
GI: Soft, Nontender and Nondistended
Musculoskeletal: No Clubbing, No Cyanosis and No Edema
Neuro: Awake, Alert and Oriented, left hemiparesis.
Psych: Calm
A/P:
74yo M with PMhx of HTN, Afib, HLD, GERD, COPD, HFmrEF s/p ICD, chronic steroids, came with sudden onset of L hemiparesis, found acute R MCA embolic stroke and R SUE embolic stroke, bacteremia with E.faecalis with concern for endocarditis. ID
started Abx and recommended CT abd, that accidentally showed concern for PVT and pulmonary embolism. Restarted on anticoagulation as of 06/18/24 after neurology reviewed repeated CT - petechial hemorrhages are not contraindication to AC. Since CVA
on Xarelto - hematology advised Lovenox vs Warfarin. Thrombophilia workup also started. Ordered PICC to cont Abx for 6 weeks and after that to be on chronic suppression 2/2 presence of PPM. No initial source of infection found - needs outpatient EGD
and colonoscopy
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
#R frontal meningioma 1.3cm
ASA, statin
Repeat MRI in 1 year, outpatient neuroSx consult
Xarelto initially stopped to avoid early bleeding transformation -currently on full dose Lovenox due to multiple thromboembolic events during this hospital stay. Will discuss with hematology prior to discharge about definitive anticoagulation.
HgbA1c 5.8%
LDL 101
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
wants [facility] to reevaluate-I was told that acute rehab might take him. Plan to go to acute rehab.
#Bacteremia, concern for endocarditis
Enterococcus faecalis (ampicillin-sensitive) bacteremia, repeated neg Bcx, PICC to be placed
Possible endocarditis
Cardiology evaluated: repeat serial TTE since high risk for SARINA
ID consult - cont Abx (Ampicillin+Ceftriaxone), after IV antibiotics he will need to be on oral antibiotics with amoxicillin for suppression given pacemaker. CT abd/pelvis without definite signs of the source, recommend outpatient EGD/Colonoscopy
wbc down to 10.4 today
#Possible pulmonary embolism within the visualized right main pulmonary artery
#Non-occlusive acute LLE DVT
#PVT thrombosis
Given heparin drip- CT head repeated on 06/18/24 showed petechial hemorrhages due to known strokes, however those are not absolute contraindication for anticoagulation
Heparin drip completed - switched to Lovenox as per coat cutter advise. Thrombophilia eval ongoing. Hematology recommends switch Lovenox to DOAC upon discharge.
poor opacification of the portal vein, but findings raise concern for thrombosis involving the right portal vein
to be on anticoagulation, confirmed on US RUQ
Hb stable at 10.2 today
#b/l atelectasis
incentive spirometry
#CT showed Stranding of the fat surrounding the gallbladder
#Small gall bladder polyps with sludge
concern for acute cholecystitis, however clinically no symptoms, LFT normal. US RUQ reasonable neg for cholecystitis
#Two focal splenic infarcts
Thromboembolic?
#Hematuria
#Acute urinary retention
now on Castillo
Hematuria 2/2 traumatic castillo, now resolved
TOV failed 06/26/24
Urology as outpatient for cystoscopy
#Small left adrenal gland mass, stable, likely an adenoma.
Right adrenal gland mass,
was not present on CT scan in 2008
Continued follow-up is recommended.
#Dysphagia
VSE passed, diet started
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
#Acute metabolic encephalopathy
2/2 CVA
#EMEKA
resolved
follow Cr
Cr stable at 0.9 today
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
#Afib, paroxysmal
#COPD not in exacerbation
#Sarcoidosis on chronic steroids
#Alcohol use d/o
cont home meds
THiamine/folate
#Mild thrombocytopenia, reactive
follow CBC
DVT ppx Xarelto
Full code
Anticipated Discharge: 24 - 48 hours
Subjective/Interval History
-
Date of Service: June 30, 2024
No chest pain or shortness of breath. Afebrile
Objective Data
-
Labs:
Laboratory Results
06/30/24
05:47
Hgb 9.8 L
Hct 30.3 L
Sodium 135
Potassium 4.1
Chloride 101
Carbon Dioxide 25
BUN 14
Creatinine 0.8
Glucose 82
Calcium 7.8 L
Vital Signs:
Vital Signs
Temp Pulse Resp BP Pulse Ox
97.5 F 74 16 134/62 96
06/30/24 07:00 06/30/24 08:28 06/30/24 08:28 06/30/24 07:00 06/30/24 08:28
I&O
06/29/24 06/30/24 07/01/24
06:59 06:59 06:59
Intake Total 1444 / 1444 1818 / 1818
Output Total 1650 / 1650 2900 / 2900
Balance -206 / -206 -1082 / -1082
[2024-06-30] MEDS: PROTONIX 40 MG PO (08:35)
[2024-06-30] MEDS: ENTRESTO 24 MG/26 MG 1 TAB PO ×2 (08:36→21:12)
[2024-06-30] MEDS: ALDACTONE 12.5 MG PO (08:36)
[2024-06-30] MEDS: VITAMIN B1 100 MG PO ×2 (08:37→21:12)
[2024-06-30] MEDS: BACTRIM 400 MG/80 MG 1 TABLET PO (08:37)
[2024-06-30] MEDS: FARXIGA 10 MG PO (08:37)
[2024-06-30] MEDS: LASIX 20 MG PO (08:38)
[2024-06-30] MEDS: LOW STRENGTH ASPIRIN 81 MG PO (08:39)
[2024-06-30] MEDS: DELTASONE 30 MG PO (08:39)
[2024-06-30] MEDS: FLOMAX 0.4 MG PO (08:41)
[2024-06-30] MEDS: PACERONE 200 MG PO (08:41)
[2024-06-30] MEDS: COREG 6.25 MG PO ×2 (08:41→21:12)
[2024-06-30] MEDS: FOLVITE 1 MG PO (08:41)
[2024-06-30] MEDS: STERILE WATER FOR INJECTION 20 ML IV ×2 (08:42→21:12)
[2024-06-30] MEDS: ROCEPHIN 2000 MG IV ×2 (08:42→21:12)
[2024-06-30] MEDS: LOVENOX 90 MG SC ×2 (11:06→22:10)
--- NOTE | 2024-06-30 15:56 | W.PN.ID1 ---
Date of Service
Date of Service: June 30, 2024
Today's Communication
Continue antibiotics.
Assessment / Plan
Enterococcal faecalis Bacteremia - sustained 06/14-06/16
Acute strokes right MCA- suspect septic emboli
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
Sarcoidosis
Immunosuppression on high dose steroids and PJP prophyalxis
Pacemaker in place
- 06/18 blood cultures x2 in progress no growth to date
- 06/16 blood cultures 1 of 2 sets: enterococcus
- 06/14 blood cultures x2 from two different draws both with enterococcus
- ua no pyuria, urine is not the source
- CT a/p with contrast: concern for PE, possible portal vein thrombus, two focal splenic infarcts, fat stranding seen around gallbladder but normal LFTs,
- eventual egd/colonoscopy recommended outpatient
- repeat echo 06/20: no significant change, no vegetations
- c/w ampicillin to 2 gm IV q4 hours
- c/w ceftriaxone 2 gm IV q12hrs
- plan at least 6 weeks of IV antibiotics (through Jul 29) and then suppression with amoxicillin given pacemaker
- continue bactrim (PJP ppx)
-double-lumen PICC in place
Urinary retention
- Failed voiding trial.
- Marroquin re-inserted 06/26/24.
Chief Complaint
-: Bacteremia and Other (possible endocarditis)
Subjective / Review of Systems
Getting stronger.
Vital Signs / Physical Exam
Vital Signs
Vital Signs
Temp Pulse Resp BP Pulse Ox
97.8 F 77 18 129/75 96
06/30/24 15:03 06/30/24 15:03 06/30/24 15:03 06/30/24 15:03 06/30/24 15:03
Physical Exam
Constitutional: Comfortable
Eyes: Sclera Anicteric
Cardiovascular: Regular Rate and S1/S2
Gastrointestinal: Soft, Non Tender, Non Distended and Normal Bowel Sounds
Genito-Urinary: Marroquin and Clear Urine
Neurological: AO x 3
Lines: PICC
Objective Data
Lab Data
Lab Results
06/30/24 05:47
06/30/24 05:47
APTT Cancelled 06/20/24 12:20
Estimated Creat Clear 92 ml/min 06/30/24 05:47
Total Bilirubin 0.6 mg/dl (0.2-1.3) 06/23/24 06:36
AST 26 U/L (17-59) 06/23/24 06:36
ALT 35 U/L (0-50) 06/23/24 06:36
Alkaline Phosphatase 56 U/L (38-126) 06/23/24 06:36
Most recent labs reviewed.
Micro Results:
06/16/24 15:48 Blood Culture - Final
Blood/Venous Enterococcus faecalis
Gram Stain - Final
06/18/24 12:46 Blood Culture - Final
Blood/Venous No Growth - Final Report
06/18/24 12:38 Blood Culture - Final
Blood/Venous No Growth - Final Report
06/16/24 15:52 Blood Culture - Final
Blood/Venous No Growth - Final Report
06/14/24 09:55 Blood Culture - Final
Blood/Venous Enterococcus faecalis
Gram Stain - Final
06/14/24 20:29 Blood Culture - Final
Blood/Venous Enterococcus faecalis
Gram Stain - Final
06/14/24 15:34 Influenza Types A & B (PEPE) - Final
Nasal Swab Negative for Influenza A & B, NAAT
Negative results must be combined with clinical observations
and patient history.
Nucleic Acid Amplification test (NAAT)performed on the
[employer] platform.
06/12/24 04:28 MRSA Screen - Final
Nose No Methicillin Resistant Staphylococcus aureus isolated.
Blood Culture Final 06/14/24
Enterococcus faecalis
Organism 1 Enterococcus faecalis

* This is an amended result. *
Due to physician's request for additional antibiotics.

A prior result that was reported as final has been changed.
1. Enterococcus faecalis
M.I.C. RX
--------- ---
Ampicillin <=2 S
Ciprofloxacin <=1 S
Gentamicin Synergy Screen <=500 S
Susceptible result indicates synergy is likely with a cell
wall active agent that is also susceptible
(e.g.ampicillin,penicillin,vancomycin)
Levofloxacin <=1 S
Tetracycline >8 R
Vancomycin 2 S
[2024-06-30] MEDS: LIPITOR 80 MG PO (18:20)
[2024-07-01] MEDS: AMPICILLIN 108 MG IV ×4 (02:19→14:29)
[2024-07-01 03:00] VITALS: BP 140/86
[2024-07-01 06:52] VITALS: BMI 32.0
[2024-07-01 06:59] LABS: Blood Urea Nitrogen 16 mg/dl (9-20); Calcium 7.6 mg/dl (8.4-10.2); Carbon Dioxide 24 mmol/L (22-30); Chloride 102 mmol/L (98-107); Estimated Creatinine Clearance 82 ml/min; Glucose 84 mg/dl (70-99); Potassium 4.1 mmol/L (3.5-5.1); Sodium 135 mmol/L (135-145); eGFR > 60.00
[2024-07-01 07:10] VITALS: BP 131/63
[2024-07-01 07:27] LABS: Hematocrit 29.8 % (39.0-52.0); Hemoglobin 9.5 g/dL (13.0-18.0); Mean Corp Hgb Conc. 31.9 g/dL (33.0-37.0); Mean Corpuscular Hgb 30.5 pg (27.0-31.0); Mean Corpuscular Volume 95.8 fL (80.0-94.0); Mean Platelet Volume 12.3 fL (7.4-10.4); Platelet Count 136 10^3/uL (130-400); Red Blood Cell Count 3.11 10^6/uL (4.70-6.10); Red Cell Dist. Width 18.2 % (11.5-14.5); White Blood Cell Count 9.8 10^3/uL (4.8-10.8)
[2024-07-01] MEDS: SYMBICORT 80/4.5 MCG INHALER 2 PUFF INH (08:00)
[2024-07-01] MEDS: SPIRIVA RESPIMAT 2.5 MCG 2 PUFF INH (08:01)
[2024-07-01] MEDS: ROCEPHIN 2000 MG IV (08:45)
[2024-07-01] MEDS: LASIX 20 MG PO (08:45)
[2024-07-01] MEDS: BACTRIM 400 MG/80 MG 1 TABLET PO (08:45)
[2024-07-01] MEDS: ENTRESTO 24 MG/26 MG 1 TAB PO (08:45)
[2024-07-01] MEDS: FARXIGA 10 MG PO (08:45)
[2024-07-01] MEDS: STERILE WATER FOR INJECTION 20 ML IV (08:45)
[2024-07-01] MEDS: ALDACTONE 12.5 MG PO (08:45)
[2024-07-01] MEDS: DELTASONE 30 MG PO (08:45)
[2024-07-01] MEDS: FOLVITE 1 MG PO (08:45)
[2024-07-01] MEDS: PROTONIX 40 MG PO (08:45)
[2024-07-01] MEDS: PACERONE 200 MG PO (08:45)
[2024-07-01] MEDS: COREG 6.25 MG PO (08:50)
[2024-07-01] MEDS: LOW STRENGTH ASPIRIN 81 MG PO (08:50)
[2024-07-01] MEDS: VITAMIN B1 100 MG PO (08:51)
[2024-07-01] MEDS: FLOMAX 0.4 MG PO (08:51)
[2024-07-01 08:58] LABS: Absolute Neutrophils -Man Diff 7.8 10^3/uL (1.4-6.5); Band Neutrophils 0 % (0-3); Lymphocytes 9 % (20-51); Metamyelocytes 2 % (-); Monocytes 2 % (2-9); Myelocytes 7 % (-); Normal RBC Morphology Yes; Platelets Checked Yes; Segmented Neutrophils 80 % (42-75); Total Cells Counted 100
[2024-07-01] MEDS: LOVENOX 90 MG SC (10:44)
--- NOTE | 2024-07-01 11:14 | W.PN.HOSP.TC ---
Today's Communication/Plan
-
pending auth for acute rehab. Medically deischarged
Assessment / Plan
Assessment / Plan
74yo M with PMhx of HTN, Afib, HLD, GERD, COPD, HFmrEF s/p ICD, chronic steroids, came with sudden onset of L hemiparesis, found acute R MCA embolic stroke and R SUE embolic stroke, bacteremia with E.faecalis with concern for endocarditis. ID
started Abx and recommended CT abd, that accidentally showed concern for PVT and pulmonary embolism. Restarted on anticoagulation as of 06/18/24 after neurology reviewed repeated CT - petechial hemorrhages are not contraindication to AC. Since CVA
on Xarelto - hematology advised Lovenox. Thrombophilia workup also started. 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 No initial source of
infection found - needs outpatient EGD and colonoscopy. Accepted to acute rehab, CM working on auth
I have spent at least 36min reviewing chart, test results, communication with consultants and direct patient care
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
#R frontal meningioma 1.3cm
ASA, statin
Repeat MRI in 1 year, outpatient neuroSx consult
Xarelto initially stopped to avoid early bleeding transformation -currently on full dose Lovenox due to multiple thromboembolic events during this hospital stay. Will discuss with hematology prior to discharge about definitive anticoagulation.
HgbA1c 5.8%
LDL 101
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
Accepted to [facility] as of 07/01/23
#Bacteremia, concern for endocarditis
Enterococcus faecalis (ampicillin-sensitive) bacteremia, repeated neg Bcx, PICC to be placed
Possible endocarditis
Cardiology evaluated: repeat serial TTE since high risk for SARINA
ID consult - cont Abx (Ampicillin+Ceftriaxone), after IV antibiotics he will need to be on oral antibiotics with amoxicillin for suppression given pacemaker. CT abd/pelvis without definite signs of the source, recommend outpatient EGD/Colonoscopy
wbc down to 10.4 today
#Possible pulmonary embolism within the visualized right main pulmonary artery
#Non-occlusive acute LLE DVT
#PVT thrombosis
Given heparin drip- CT head repeated on 06/18/24 showed petechial hemorrhages due to known strokes, however those are not absolute contraindication for anticoagulation
Heparin drip completed - switched to Lovenox as per chief petroleum engineer advise. Thrombophilia eval ongoing. Hematology recommends switch Lovenox to DOAC upon discharge.
poor opacification of the portal vein, but findings raise concern for thrombosis involving the right portal vein
to be on anticoagulation, confirmed on US RUQ
Hb stable at 10.2 today
#b/l atelectasis
incentive spirometry
#CT showed Stranding of the fat surrounding the gallbladder
#Small gall bladder polyps with sludge
concern for acute cholecystitis, however clinically no symptoms, LFT normal. US RUQ reasonable neg for cholecystitis
#Two focal splenic infarcts
Thromboembolic?
#Hematuria
#Acute urinary retention
now on Castillo
Hematuria 2/2 traumatic castillo, now resolved
TOV failed 06/26/24
Urology as outpatient for cystoscopy
#Small left adrenal gland mass, stable, likely an adenoma.
Right adrenal gland mass,
was not present on CT scan in 2008
Continued follow-up is recommended.
#Dysphagia
VSE passed, diet started
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
#Acute metabolic encephalopathy
2/2 CVA
#EMEKA
resolved
follow Cr
Cr stable at 0.9 today
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
#Afib, paroxysmal
#COPD not in exacerbation
#Sarcoidosis on chronic steroids
#Alcohol use d/o
cont home meds
THiamine/folate
#Mild thrombocytopenia, reactive
follow CBC
DVT ppx Lovenox
Full code
Anticipated Discharge: Within 24 hours
Subjective/Interval History
-
Date of Service: July 01, 2024
Objective Data
-
Labs:
Laboratory Results
07/01/24
05:35
WBC 9.8
Hgb 9.5 L
Hct 29.8 L
Plt Count 136
Sodium 135
Potassium 4.1
Chloride 102
Carbon Dioxide 24
BUN 16
Creatinine 0.9
Glucose 84
Calcium 7.6 L
Vital Signs:
Vital Signs
Temp Pulse Resp BP Pulse Ox
98.1 F 75 18 131/63 97
07/01/24 07:10 07/01/24 07:10 07/01/24 07:10 07/01/24 07:10 07/01/24 08:45
I&O
06/30/24 07/01/24 07/02/24
06:59 06:59 06:59
Intake Total 1818 / 1818 600 / 600 324 / 324
Output Total 2900 / 2900 1450 / 1450
Balance -1082 / -1082 -850 / -850 324 / 324
Review of Systems
-
History Source: Patient
All other systems: Reviewed and negative
Physical Exam
-
General: No Apparent Distress
Neuro: Awake, Alert, Oriented and AO x 3
Psych: Calm
--- NOTE | 2024-07-01 11:20 | W.DCSUMMARY ---
Discharge Summary
Discharge Data
Date of Admission: 06/11/24
Date of Discharge: 07/01/24
-
Pending Results: No
Hospital Course
74yo M with PMhx of HTN, Afib, HLD, GERD, COPD, HFmrEF s/p ICD, chronic steroids, came with sudden onset of L hemiparesis, found acute R MCA embolic stroke and R SUE embolic stroke, bacteremia with E.faecalis with concern for endocarditis. ID
started Abx and recommended CT abd, that accidentally showed concern for PVT and pulmonary embolism. Restarted on anticoagulation as of 06/18/24 after neurology reviewed repeated CT - petechial hemorrhages are not contraindication to AC. Since CVA
on Xarelto - hematology advised Lovenox. Thrombophilia workup also started. 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 No initial source of
infection found - needs outpatient EGD and colonoscopy. Accepted to acute rehab, CM working on auth
I have spent at least 36min reviewing chart, test results, communication with consultants and direct patient care
Patient was managed for:
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
#R frontal meningioma 1.3cm
#Bacteremia, concern for endocarditis
#Possible pulmonary embolism within the visualized right main pulmonary artery
#Non-occlusive acute LLE DVT
#PVT thrombosis
#b/l atelectasis
#CT showed Stranding of the fat surrounding the gallbladder
#Small gall bladder polyps with sludge
#Two focal splenic infarcts
#Hematuria
#Acute urinary retention
#Small left adrenal gland mass, stable, likely an adenoma.
#Dysphagia
#Acute metabolic encephalopathy
#EMEKA
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
#Afib, paroxysmal
#COPD not in exacerbation
#Sarcoidosis on chronic steroids
#Alcohol use d/o
#Mild thrombocytopenia, reactive
Discharge Plan
-
Patient Disposition: Acute Rehab Facility
Discharge Diagnosis/Procedures: Stroke, endocarditis
Additional Diets: Soft, Byte sized with nectar thick liquid
Activity: As tolerated
Driving Restrictions: As prior to admission
Others Tests: Repeat MRI brain in 1 year, outpatient neuroSx consult, follow up CT abdomen/pelvis with PCP in 2-3 mo for Small left adrenal gland mass
Activity Restrictions/Additional Instructions:
1. Continue Ampicillin 2gIV q4H through 07/29/24.
2. Continue Ceftriaxone 2g IV q12H through 07/29/24.
3. Weekly CBC, CMP while on IV antibiotic.
4. On 07/30/24, start amoxicillin 500mg po daily for chronic suppression.
Wound Care Instructions
R great toe: clean with saline, smear of honey gel, 2x2 gauze and alyce change daily and prn drainage.
Heels: skin prep and adhesive foams change q 3 days and prn soilage
L buttock and sacrum: Calazime daily and prn soilage
Follow up at wound care center call for an appointment.
Referrals:
Trev Fam MD [Active] - 08/09/24 2:00 pm (Your cardiology appointment has changed from 07/04/24. You now have an appointment at the [facility] office on 08/09/24. Please call with issues. )
Anais Oro MD [Active] - in four to six weeks (EGD/COlonoscopy)
Kelvin Nicole DO [Active] - in one to two months
Zenon Miller MD [Active] - in three to four weeks
UNKNOWN,NO INTERVIEW [Unknown Provider] -
Luci Romero MD [Active] - in three to four weeks
Prescriptions:
New
Ampicillin 2000 MG
0.9% Sodium Chloride 100 ml [Nss] 100 ML
108 mls/hr IV Q4H
Ordered By: Isalainaov,Georgi, MD
Last Taken: 07/01/24 09:02 108 mls
atorvastatin 80 mg Tablet
80 mg PO QPM Qty: 30 0RF
tamsulosin 0.4 mg Capsule
0.4 mg PO DAILY Qty: 30 0RF
aspirin 81 mg Tablet,Chewable
81 mg PO DAILY Qty: 30 0RF
folic acid 1 mg Tablet
1 mg PO DAILY Qty: 30 0RF
ceftriaxone 2 gram Recon Soln
2,000 mg IV Q12 Qty: 0 0RF
enoxaparin 100 mg/mL Syringe
90 mg SC Q12H Qty: 10 0RF
thiamine HCl (vitamin B1) 100 mg Tablet
100 mg PO BID Qty: 30 0RF
budesonide-formoterol [Symbicort] 80-4.5 mcg/actuation Hfa Aerosol Inhaler
2 puff inhalation R BID Qty: 10 0RF
Continued
vitamin B complex Tablet
1 tab PO DAILY
Jardiance 10 mg Tablet
10 mg PO DAILY Qty: 30 0RF
sulfamethoxazole-trimethoprim [Bactrim] 400-80 mg Tablet
1 tab PO DAILY
amiodarone [Pacerone] 200 mg tablet
200 mg PO DAILY
therapeutic multivitamin Tablet
1 tab PO DAILY
spironolactone 25 mg Tablet
12.5 mg PO DAILY
Systane (PF) 0.4-0.3 % Dropperette
1 drp BOTH EYES Q6HPRN PRN (Reason: dry eyes)
sacubitril-valsartan [Entresto] 24-26 mg Tablet
1 tab PO BID
Eylea HD 8 mg/0.07 mL Solution
8 mg INTRAVITREAL Q4W
acetaminophen [Tylenol] 325 mg Tablet
650 mg PO DAILYPRN PRN (Reason: fever)
Trelegy Ellipta 100-62.5-25 mcg Blister With Device
1 inh INHALATION R DAILY
prednisone 20 mg tablet
30 mg PO DAILY
carvedilol 6.25 MG tablet
6.25 mg PO BID
pantoprazole 40 mg tablet,delayed release (DR/EC)
40 mg PO DAILY
furosemide 20 mg tablet
20 mg PO DAILY
Spiriva Respimat 2.5 mcg/actuation mist
2 puff inhalation R DAILY
Discontinued
atorvastatin 10 mg tablet
10 mg PO DAILY
Xarelto 20 mg tablet
20 mg PO HS
Discharge Orders:
Discharge Patient (As Directed); Ordered 07/01/24
Ordered By: Georgi Randall
Discharge Date and Time
Print Language: [place]
--- NOTE | 2024-07-01 14:35 | CM ---
Addendum entered by Domi Mosley 07/01/24 15:17:
Authorization for Acute Rehab
Auth# [id number]
Approve 7 days
Start date 07/01/24, NRD 07/08/24
updates to
plan: [facility] today.
Original Note:
Insurance authorization initiated for [facility].
Plan: [facility] once auth obtained.
--- NOTE | 2024-07-01 14:45 | W.PN.ID1 ---
Date of Service
Date of Service: July 01, 2024
Today's Communication
- recommend eventual egd/colonoscopy outpatient - follow up with GI to schedule
- c/w ampicillin to 2 gm IV q4 hours
- c/w ceftriaxone 2 gm IV q12hrs
- plan at least 6 weeks of IV antibiotics (through Jul 29) and then suppression with amoxicillin given pacemaker
- continue bactrim (PJP ppx)
- double-lumen PICC in place
- follow up in my office before Jul 29
Assessment / Plan
Enterococcal faecalis Bacteremia - sustained 06/14-06/16
Acute strokes right MCA- suspect septic emboli
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
Sarcoidosis
Immunosuppression on high dose steroids and PJP prophyalxis
Pacemaker in place
- recommend eventual egd/colonoscopy outpatient - follow up with GI to schedule
- c/w ampicillin to 2 gm IV q4 hours
- c/w ceftriaxone 2 gm IV q12hrs
- plan at least 6 weeks of IV antibiotics (through Jul 29) and then suppression with amoxicillin given pacemaker
- continue bactrim (PJP ppx)
- double-lumen PICC in place
- follow up in my office before Jul 29
Urinary retention
- Failed voiding trial - Marroquin re-inserted 06/26/24
- management per primary team
Chief Complaint
-: Bacteremia and Other (possible endocarditis)
Subjective / Review of Systems
afebrile
language more fluent today
no complaints
Vital Signs / Physical Exam
Vital Signs
Vital Signs
Temp Pulse Resp BP Pulse Ox
98.1 F 75 18 131/63 97
07/01/24 07:10 07/01/24 07:10 07/01/24 07:10 07/01/24 07:10 07/01/24 08:45
Physical Exam
Constitutional: No Acute Distress
Cardiovascular: Regular Rate and S1/S2; Negative Murmur or Rub
Pulmonary: Clear and Symmetric; Negative Wheezes or Rales
Gastrointestinal: Soft, Non Tender, Non Distended and Normal Bowel Sounds
Skin: Warm and Dry; Negative Rash or Jaundice
Lines: PICC
Objective Data
Lab Data
Lab Results
07/01/24 05:35
07/01/24 05:35
APTT Cancelled 06/20/24 12:20
Estimated Creat Clear 82 ml/min 07/01/24 05:35
Total Bilirubin 0.6 mg/dl (0.2-1.3) 06/23/24 06:36
AST 26 U/L (17-59) 06/23/24 06:36
ALT 35 U/L (0-50) 06/23/24 06:36
Alkaline Phosphatase 56 U/L (38-126) 06/23/24 06:36
Most recent labs reviewed.
Micro Results:
06/16/24 15:48 Blood Culture - Final
Blood/Venous Enterococcus faecalis
Gram Stain - Final
06/18/24 12:46 Blood Culture - Final
Blood/Venous No Growth - Final Report
06/18/24 12:38 Blood Culture - Final
Blood/Venous No Growth - Final Report
06/16/24 15:52 Blood Culture - Final
Blood/Venous No Growth - Final Report
06/14/24 09:55 Blood Culture - Final
Blood/Venous Enterococcus faecalis
Gram Stain - Final
06/14/24 20:29 Blood Culture - Final
Blood/Venous Enterococcus faecalis
Gram Stain - Final
06/14/24 15:34 Influenza Types A & B (PEPE) - Final
Nasal Swab Negative for Influenza A & B, NAAT
Negative results must be combined with clinical observations
and patient history.
Nucleic Acid Amplification test (NAAT)performed on the
[employer] platform.
06/12/24 04:28 MRSA Screen - Final
Nose No Methicillin Resistant Staphylococcus aureus isolated.
Blood Culture Final 06/14/24
Enterococcus faecalis
Organism 1 Enterococcus faecalis

* This is an amended result. *
Due to physician's request for additional antibiotics.

A prior result that was reported as final has been changed.
1. Enterococcus faecalis
M.I.C. RX
--------- ---
Ampicillin <=2 S
Ciprofloxacin <=1 S
Gentamicin Synergy Screen <=500 S
Susceptible result indicates synergy is likely with a cell
wall active agent that is also susceptible
(e.g.ampicillin,penicillin,vancomycin)
Levofloxacin <=1 S
Tetracycline >8 R
Vancomycin 2 S
[2024-07-01 15:32] VITALS: BP 126/69
== END 2024-07-01 16:40 | DRG 64 ==
LOC: 4 WEST ACU 10:44
PROVIDERS: Nurse Practitioner Family; Radiology Diagnostic Radiology; ADMITTING PHYSICIAN Hospitalist; ATTENDING PHYSICIAN Internal Medicine; CONSULT PHYSICIAN Internal Medicine Cardiovascular Disease; CONSULT PHYSICIAN Physical Medicine & Rehabilitation; CONSULT PHYSICIAN Psychiatry & Neurology Neurology; CONSULT PHYSICIAN Student in an Organized Health Care Education/Training Program; CONSULT PHYSICIAN Surgery; EMERGENCY PHYSICIAN Emergency Medicine; FAMILY PHYSICIAN Internal Medicine; OTHER PHYSICIAN Internal Medicine Hematology & Oncology
PROC: 02HV33Z Insertion of Infusion Device into Superior Vena Cava, Percutaneous Approach (ICD-10-PCS; 2024-06-24)
DX: I63.411 Cerebral infarction due to embolism of right middle cerebral artery (principal); G93.41 Metabolic encephalopathy; I26.99 Other pulmonary embolism without acute cor pulmonale; I81 Portal vein thrombosis; G81.94 Hemiplegia, unspecified affecting left nondominant side; I47.20 Ventricular tachycardia, unspecified; I42.8 Other cardiomyopathies; I50.22 Chronic systolic (congestive) heart failure; R78.81 Bacteremia; I82.412 Acute embolism and thrombosis of left femoral vein; N17.9 Acute kidney failure, unspecified; D84.821 Immunodeficiency due to drugs; J98.11 Atelectasis; I38 Endocarditis, valve unspecified; I63.421 Cerebral infarction due to embolism of right anterior cerebral artery; R29.709 NIHSS score 9; R29.810 Facial weakness; R47.1 Dysarthria and anarthria; I48.0 Paroxysmal atrial fibrillation; I25.10 Atherosclerotic heart disease of native coronary artery without angina pectoris; J44.9 Chronic obstructive pulmonary disease, unspecified; E78.00 Pure hypercholesterolemia, unspecified; G47.33 Obstructive sleep apnea (adult) (pediatric); I11.0 Hypertensive heart disease with heart failure; K21.9 Gastro-esophageal reflux disease without esophagitis; R76.0 Raised antibody titer; D86.9 Sarcoidosis, unspecified; D32.0 Benign neoplasm of cerebral meninges; R13.10 Dysphagia, unspecified; D69.6 Thrombocytopenia, unspecified; B95.2 Enterococcus as the cause of diseases classified elsewhere; R33.8 Other retention of urine; T38.0X5A Adverse effect of glucocorticoids and synthetic analogues, initial encounter; D73.5 Infarction of spleen; E11.9 Type 2 diabetes mellitus without complications; D35.02 Benign neoplasm of left adrenal gland; E66.01 Morbid (severe) obesity due to excess calories; I25.2 Old myocardial infarction; I49.3 Ventricular premature depolarization; L89.322 Pressure ulcer of left buttock, stage 2; Z95.810 Presence of automatic (implantable) cardiac defibrillator; Z87.891 Personal history of nicotine dependence; Z86.718 Personal history of other venous thrombosis and embolism; Z86.711 Personal history of pulmonary embolism; Z79.899 Other long term (current) drug therapy; Z11.52 Encounter for screening for COVID-19; Z79.01 Long term (current) use of anticoagulants; Z79.84 Long term (current) use of oral hypoglycemic drugs; Z79.52 Long term (current) use of systemic steroids; Z79.51 Long term (current) use of inhaled steroids; Z68.32 Body mass index [BMI] 32.0-32.9, adult
CPT/HCPCS: 93308; 70450; 70496; 70498; 70551; 71045; 74018; 74177; 74230; 76700; 80048; 80053; 80061; 81003; 81015; 82962; 83036; 83735; 85014; 85018; 85025; 85027; 85520; 85610; 85613; 85730; 86146; 86147; 87040; 87070; 87077; 87186; 87205; 87502; 87811; 92507; 92523; 92526; 92610; 92611; 93005; 93306; 93321; 93325; 93970; 93975; 94640; 95816; 96360; 97110; 97112; 97163; 97167; 97530; 97535; 99285; Q9950; Q9967

== ENCOUNTER 2024-07-03 19:15 | Inpatient (IN) | payer OTHER, SELFPAY ==
[2024-07-03] VITALS (27 sets, daily range): BP systolic 95–140; BP diastolic 39–86; BMI 31.7; BMI 30.5
--- NOTE | 2024-07-03 13:01 | ED.CVA ---
History of Present Illness
<June Kent PA-C - Last Filed: 07/03/24 22:01>
General
Chief Complaint: CVA/TIA Symptoms
Source: patient
Exam Limitations: none
Time Seen by Provider: 07/03/24 12:54
Nursing documentation reviewed up to this point in time: agreed with
Onset of Stroke Symptoms
Onset of symptoms known: Yes
Date of onset of symptoms: 07/02/24
History of Present Illness
History of Present Illness:
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 Patient has been having on and off
right-sided headaches for the past week, he feels it behind his right eye. He denies any changes to his vision. reports that patient has been acting more lethargic starting yesterday and has been speaking less often than usual. He is
currently staying in [facility] because he had a right sided MCA embolic stroke on 06/11/2024. He is currently on IV antibiotics for E.faecalis bacteremia. 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 He is DNI/DNR but they do want full medical
management/treatment. Patient is on 1 baby aspirin daily and currently receives Lovenox and wants rehab which he had this morning. He used to be on Eliquis but no longer takes this. He denies any nausea or vomiting, denies any seizure-like
activity, denies any syncopal episodes. He reports that 'I would just like to sleep.'
Past History
<June Kent PA-C - Last Filed: 07/03/24 22:01>
Past History
ED Past Medical History: Arrthythmia (Paroxysmal atrial fibrillation), Cancer (Basal cell skin cancer), CHF, COPD, CVA (Right M2 ischemic stroke May 2024), GERD, HTN, Hypercholesterolemia and Other (Sarcoidosis, PE, meningioma right frontal)
ED Past Surgical History: Cardiac (Cardiac catheterization December 2014, nonocclusive CAD) and Orthopedic (Left knee)
Social History
Tobacco: Former smoker
Alcohol: Daily
Drug: None
Personal:
Living: with family
Employment: Retired
Family History
Family History: Hypertension
Review of Systems
<June Kent PA-C - Last Filed: 07/03/24 22:01>
Review of Systems
All Other Systems: ROS reviewed and negative except as documented in HPI and ROS
Phy Exam
<June Kent PA-C - Last Filed: 07/03/24 22:01>
Physical Exam
Physical Exam:
General: Patient is well appearing and in no acute distress; non-toxic
Skin: Warm and dry, scattered ecchymosis noted to left upper extremity
Head: Normocephalic, atraumatic
Eyes: Sclera non-icteric. EOMs intact.
Cardiac: Regular rate and rhythm no murmurs
Peripheral Vascular: No lower extremity swelling or edema
Pulm: Normal respiratory effort, no wheezes, rales, rhonchi
Musculoskeletal: Decreased left upper and left lower extremity strength
Neuro: AAOx3. GCS 15. Normal speech. Unilateral left sided weakness
Psychiatric: Appropriate mood and affect.
Course
<June Kent PA-C - Last Filed: 07/03/24 22:01>
Orders/Labs/Results
Orders:
Orders
07/03/24 12:59
Electrocardiogram (*1) Urgent
Reason for Study: TIA/Stroke
EKG- Treatment ONCE
IV Insert/Care/Rem.- Treatment PRN
07/03/24 13:16
Protamine 50 mg Syringe [Syringe-Pump] 0 ml IV NOW
07/03/24 13:17
Desmopressin [Ddavp] 39 mcg 0.9% Sodium Chloride 50 ml [Nss] 50 ml IV NOW
07/03/24 13:18
Acetaminophen 1000MG/100Ml [Ofirmev] 1,000 mg in 100 ml IV ONCE
Acetaminophen IV Indication:: No OH & No Enteral Access
07/03/24 13:30
Complete Blood Count/No Diff Urgent
Comprehensive Metabolic Panel Urgent
PTT Urgent
Prothrombin Time Urgent
07/03/24 14:49
Type+Screen Urgent
[employer] Wristband Number:
07/03/24 Dinner
NPO
Allow oral meds: Yes
Allow clear liquids: No
NPO with Ice Chips: Yes
07/03/24 15:11
Blood Bank Products [* Blood Bank Products] Urgent
Blood Bank Products: *Plt Single Donor Leuko
Quantity: 1
Transfuse Today: Yes
Is product needed for scheduled surgery?: No
Reason: Bleeding
07/03/24 15:47
ABO2 Urgent
[employer] Wristband Number:
Associate notified that ABO2 has been ordered: [id number]
Date: 07/03/24
Time: 15:03
Logistics Tech ID: [id number]
07/03/24 17:13
Acetaminophen 1000MG/100Ml [Ofirmev] 1,000 mg in 100 ml .ROUTE .STK-MED
07/03/24 17:15
Acetaminophen 1000MG/100Ml [Ofirmev] 1,000 mg in 100 ml IV ONCE
Acetaminophen IV Indication:: No OH & No Enteral Access
07/03/24 18:17
CT Head W/o Iv Contrast Urgent
Comment:
Reason For Exam: headache, known bleed
07/03/24 18:29
Admit/Transfer Patient As Directed
Co-Sign Provider:
Level of Care: Inpatient admission
Assign to:: ICU
Physician / Group: [facility]/Hospitalist
Diagnosis: reperfusion bleed s/p recent acute r MCA embolic stroke
Reason for Hospitalization: reperfusion bleed s/p recent acute r MCA embolic stroke
Expected length of stay greater than two midnights?: Yes
ELOS- Estimated Length of Stay in days: 4
I certify the patient meets the requirements for IP care: Yes
PRN Pain Medication Management As Directed
May give lesser potent ordered pain med per pt: Yes
preference::
Protocol:: Medication orders for pain may be administered in a
manner that supports deferring to patient preference
when the pt is:
- Requesting an ordered lesser potent pain medication.
Least to most potent pain medications are defined
as: acetaminophen < NSAID < tramadol < opioids
(morphine, oxycodone, hydromorphone).
- Requesting a lesser dose of the same medication IF
ORDERED.
- Requesting a less intrusive route of administration
if both routes are prescribed by the provider (PO <
IV).
07/03/24 18:37
Code Status As Directed
Resuscitation Status: Do not resuscitate
Reached after discussion with pt or family/Healthcare POA: Yes
DNR Bracelet Application ONCE
07/03/24 22:11
0.9% Sodium Chloride 1000 ml [Nss] 1,000 ml IV 75 mls/hr
Acetaminophen [Tylenol] 650 mg PO Q6HPRN PRN
Bisacodyl [Dulcolax] 10 mg RECTAL [id number] PRN
Budesonide/Formoterol 80/4.5 [Symbicort 80/4.5 Mcg Inhaler] 2 puff INH R BID
Carvedilol [Coreg] 6.25 mg PO BID
Clotrimazole [Lotrimin 1% Cream] 1 applic TOPICAL BID
Docusate W/Senna [Senokot-S] 1 tablet PO BIDPRN PRN
Polyethylene Glycol Powder [Miralax] 17 grams PO DAILYPRN PRN
Sacubitril 24/Valsartan 26 [Entresto 24 mg/26 mg] 1 tab PO BID
Tamsulosin [Flomax] 0.4 mg PO HS
07/03/24 22:11
Activity As Directed
Activity Level: With Assistance
Intake/ Output As Directed
Frequency: Per unit guidelines
Neurological Checks As Directed
Frequency: q1h
Pneumatic Compression Sleeves As Directed
Type: Knee high
Vital Signs As Directed
Frequency: Per unit guidelines
Weight As Directed
Frequency: Daily
Pulse Ox/spot Check [RESP] Routine
Quantity: 1
DX Deep Vein Thrombosis Video Routine
07/03/24 22:34
Artificial Tears (Pf) [Refresh Eye Drops (Pf)] 1 drops BOTH EYES Q6HPRN PRN
07/04/24 00:00
Ampicillin 2,000 mg 0.9% Sodium Chloride 100 ml [Nss] 100 ml IV Q4H
CefTRIAXone [Rocephin] 2,000 mg IV Q12H
07/04/24 04:02
Complete Blood Count/With Diff IN AM
07/04/24 04:03
Comprehensive Metabolic Panel IN AM
07/04/24 06:00
CT Head W/o Iv Contrast IN AM
Comment:
Reason For Exam: reperfusion bleed s/p strke
07/04/24 08:00
Amiodarone [Pacerone] 200 mg PO DAILY
Dapagliflozin [Farxiga] 10 mg PO DAILY
FOLic ACID [Folvite] 1 mg PO DAILY
Furosemide [Lasix] 20 mg PO DAILY
Lidocaine [Lidocaine 4% Patch] 3 patch TOPICAL DAILY
Apply Lidocaine patch(s) to:: affected area
Multivitamin [Theragran] 1 tablet PO DAILY
Pantoprazole [Protonix] 40 mg PO DAILY
Prednisone [Deltasone] 30 mg PO DAILY
Spironolactone [Aldactone] 12.5 mg PO DAILY
Sulfamethoxazole/Trimethoprim [Bactrim 400 mg/80 mg] 1 tablet PO DAILY
Thiamine HCl [Vitamin B1] 100 mg PO DAILY
Tiotropium [place] 2.5 Mcg [Spiriva Respimat 2.5 Mcg] 2 puff INH R DAILY
07/04/24 18:00
Atorvastatin [Lipitor] 80 mg PO QPM
Abnormal Lab Results
07/03/24
13:30
WBC 13.1 H 10^3/uL
(4.8-10.8)
RBC 3.01 L 10^6/uL
(4.70-6.10)
Hgb 9.1 L g/dL
(13.0-18.0)
Hct 28.9 L %
(39.0-52.0)
MCV 96.0 H fL
(80.0-94.0)
MCHC 31.5 L g/dL
(33.0-37.0)
RDW 19.0 H %
(11.5-14.5)
MPV 12.3 H fL
(7.4-10.4)
APTT 38.0 H Sec
(23.4-35.0)
Sodium 134 L mmol/L
(135-145)
Glucose 143 H mg/dl
(70-99)
Calcium 8.1 L mg/dl
(8.4-10.2)
Total Protein 5.3 L g/dl
(6.3-8.2)
Albumin 3.2 L g/dl
(3.5-5.0)
07/03/24 13:30
07/03/24 13:30
Vital Signs
Initial and Last Documented VS:
Initial Vital Signs
Temp Pulse Resp BP Pulse Ox
98.0 F 72 19 117/65 98
07/03/24 12:56 07/03/24 12:56 07/03/24 12:56 07/03/24 12:56 07/03/24 12:56
Last Documented Vital Signs
Temp Pulse Resp BP Pulse Ox
98.3 F 84 18 110/58 95
07/04/24 02:55 07/04/24 07:51 07/04/24 07:51 07/04/24 06:00 07/04/24 07:51
<Martin Bajwa MD - Last Filed: 07/04/24 08:28>
Orders/Labs/Results
Orders:
Orders
07/03/24 12:59
Electrocardiogram (*1) Urgent
Reason for Study: TIA/Stroke
EKG- Treatment ONCE
IV Insert/Care/Rem.- Treatment PRN
07/03/24 13:16
Protamine 50 mg Syringe [Syringe-Pump] 0 ml IV NOW
07/03/24 13:17
Desmopressin [Ddavp] 39 mcg 0.9% Sodium Chloride 50 ml [Nss] 50 ml IV NOW
07/03/24 13:18
Acetaminophen 1000MG/100Ml [Ofirmev] 1,000 mg in 100 ml IV ONCE
Acetaminophen IV Indication:: No OH & No Enteral Access
07/03/24 13:30
Complete Blood Count/No Diff Urgent
Comprehensive Metabolic Panel Urgent
PTT Urgent
Prothrombin Time Urgent
07/03/24 14:49
Type+Screen Urgent
[employer] Wristband Number:
07/03/24 Dinner
NPO
Allow oral meds: Yes
Allow clear liquids: No
NPO with Ice Chips: Yes
07/03/24 15:11
Blood Bank Products [* Blood Bank Products] Urgent
Blood Bank Products: *Plt Single Donor Leuko
Quantity: 1
Transfuse Today: Yes
Is product needed for scheduled surgery?: No
Reason: Bleeding
07/03/24 15:47
ABO2 Urgent
[employer] Wristband Number:
Associate notified that ABO2 has been ordered: [id number]
Date: 07/03/24
Time: 15:03
Logistics Tech ID: [id number]
07/03/24 17:13
Acetaminophen 1000MG/100Ml [Ofirmev] 1,000 mg in 100 ml .ROUTE .STK-MED
07/03/24 17:15
Acetaminophen 1000MG/100Ml [Ofirmev] 1,000 mg in 100 ml IV ONCE
Acetaminophen IV Indication:: No OH & No Enteral Access
07/03/24 18:17
CT Head W/o Iv Contrast Urgent
Comment:
Reason For Exam: headache, known bleed
07/03/24 18:29
Admit/Transfer Patient As Directed
Co-Sign Provider:
Level of Care: Inpatient admission
Assign to:: ICU
Physician / Group: [facility]/Hospitalist
Diagnosis: reperfusion bleed s/p recent acute r MCA embolic stroke
Reason for Hospitalization: reperfusion bleed s/p recent acute r MCA embolic stroke
Expected length of stay greater than two midnights?: Yes
ELOS- Estimated Length of Stay in days: 4
I certify the patient meets the requirements for IP care: Yes
PRN Pain Medication Management As Directed
May give lesser potent ordered pain med per pt: Yes
preference::
Protocol:: Medication orders for pain may be administered in a
manner that supports deferring to patient preference
when the pt is:
- Requesting an ordered lesser potent pain medication.
Least to most potent pain medications are defined
as: acetaminophen < NSAID < tramadol < opioids
(morphine, oxycodone, hydromorphone).
- Requesting a lesser dose of the same medication IF
ORDERED.
- Requesting a less intrusive route of administration
if both routes are prescribed by the provider (PO <
IV).
07/03/24 18:37
Code Status As Directed
Resuscitation Status: Do not resuscitate
Reached after discussion with pt or family/Healthcare POA: Yes
DNR Bracelet Application ONCE
07/03/24 22:11
0.9% Sodium Chloride 1000 ml [Nss] 1,000 ml IV 75 mls/hr
Acetaminophen [Tylenol] 650 mg PO Q6HPRN PRN
Bisacodyl [Dulcolax] 10 mg RECTAL [id number] PRN
Budesonide/Formoterol 80/4.5 [Symbicort 80/4.5 Mcg Inhaler] 2 puff INH R BID
Carvedilol [Coreg] 6.25 mg PO BID
Clotrimazole [Lotrimin 1% Cream] 1 applic TOPICAL BID
Docusate W/Senna [Senokot-S] 1 tablet PO BIDPRN PRN
Polyethylene Glycol Powder [Miralax] 17 grams PO DAILYPRN PRN
Sacubitril 24/Valsartan 26 [Entresto 24 mg/26 mg] 1 tab PO BID
Tamsulosin [Flomax] 0.4 mg PO HS
07/03/24 22:11
Activity As Directed
Activity Level: With Assistance
Intake/ Output As Directed
Frequency: Per unit guidelines
Neurological Checks As Directed
Frequency: q1h
Pneumatic Compression Sleeves As Directed
Type: Knee high
Vital Signs As Directed
Frequency: Per unit guidelines
Weight As Directed
Frequency: Daily
Pulse Ox/spot Check [RESP] Routine
Quantity: 1
DX Deep Vein Thrombosis Video Routine
07/03/24 22:34
Artificial Tears (Pf) [Refresh Eye Drops (Pf)] 1 drops BOTH EYES Q6HPRN PRN
07/04/24 00:00
Ampicillin 2,000 mg 0.9% Sodium Chloride 100 ml [Nss] 100 ml IV Q4H
CefTRIAXone [Rocephin] 2,000 mg IV Q12H
07/04/24 04:02
Complete Blood Count/With Diff IN AM
07/04/24 04:03
Comprehensive Metabolic Panel IN AM
07/04/24 06:00
CT Head W/o Iv Contrast IN AM
Comment:
Reason For Exam: reperfusion bleed s/p strke
07/04/24 08:00
Amiodarone [Pacerone] 200 mg PO DAILY
Dapagliflozin [Farxiga] 10 mg PO DAILY
FOLic ACID [Folvite] 1 mg PO DAILY
Furosemide [Lasix] 20 mg PO DAILY
Lidocaine [Lidocaine 4% Patch] 3 patch TOPICAL DAILY
Apply Lidocaine patch(s) to:: affected area
Multivitamin [Theragran] 1 tablet PO DAILY
Pantoprazole [Protonix] 40 mg PO DAILY
Prednisone [Deltasone] 30 mg PO DAILY
Spironolactone [Aldactone] 12.5 mg PO DAILY
Sulfamethoxazole/Trimethoprim [Bactrim 400 mg/80 mg] 1 tablet PO DAILY
Thiamine HCl [Vitamin B1] 100 mg PO DAILY
Tiotropium [place] 2.5 Mcg [Spiriva Respimat 2.5 Mcg] 2 puff INH R DAILY
07/04/24 18:00
Atorvastatin [Lipitor] 80 mg PO QPM
Abnormal Lab Results
07/03/24
13:30
WBC 13.1 H 10^3/uL
(4.8-10.8)
RBC 3.01 L 10^6/uL
(4.70-6.10)
Hgb 9.1 L g/dL
(13.0-18.0)
Hct 28.9 L %
(39.0-52.0)
MCV 96.0 H fL
(80.0-94.0)
MCHC 31.5 L g/dL
(33.0-37.0)
RDW 19.0 H %
(11.5-14.5)
MPV 12.3 H fL
(7.4-10.4)
APTT 38.0 H Sec
(23.4-35.0)
Sodium 134 L mmol/L
(135-145)
Glucose 143 H mg/dl
(70-99)
Calcium 8.1 L mg/dl
(8.4-10.2)
Total Protein 5.3 L g/dl
(6.3-8.2)
Albumin 3.2 L g/dl
(3.5-5.0)
07/03/24 13:30
07/03/24 13:30
Vital Signs
Initial and Last Documented VS:
Initial Vital Signs
Temp Pulse Resp BP Pulse Ox
98.0 F 72 19 117/65 98
07/03/24 12:56 07/03/24 12:56 07/03/24 12:56 07/03/24 12:56 07/03/24 12:56
Last Documented Vital Signs
Temp Pulse Resp BP Pulse Ox
98.3 F 84 18 110/58 95
07/04/24 02:55 07/04/24 07:51 07/04/24 07:51 07/04/24 06:00 07/04/24 07:51
<June Kent PA-C - Last Filed: 07/03/24 22:01>
MDM/Problems Addressed
Differential Diagnosis Includes:
see below
MDM/Problems Addressed:
NUMBER AND COMPLEXITY OF PROBLEMS ADDRESSED AT THE ENCOUNTER
� Chronic conditions affecting care: CHF, A-fib, right MCA stroke
� Acute Exacerbation and/or Progression of Chronic Illness:
� Differential Diagnosis includes: new reperfusion hemorrhage in the right temporal lobe with associated mass effect
AMOUNT AND/OR COMPLEXITY OF DATA TO BE REVIEWED AND ANALYZED
� I performed an independent evaluation of and my interpretation is:
CT: intraparenchymal hemorrhage
Laboratory Studies: CBC CMP pending
Other:
� Review of other/old records: Reviewed ER physician documentation from 06/11/2024 patient seen for stroke, reviewed discharge summary from 07/01/2024 patient discharged from the hospital after stroke discharged with antibiotics
� Clinical information was obtained by an independent historian: present who provided HPI
� Prescriptions/Medications Considered but not given: none
� Further testing considered but not performed: n/a
RISK OF COMPLICATIONS AND/OR MORBIDITY OR MORTALITY OF PATIENT MANAGEMENT
� Social determinants of health affecting care: none
� Discussion with other providers: ER attending
� Escalation of care including admission/observation vs risk of discharge considered:
74-year-old male with past medical history of right MCA stroke presents emergency department today with right sided headache and increasing lethargy after new intraparenchymal hemorrhage was found in the right temporal lobe on CT scan this morning.
Patient was sent to [facility] emergency department from [facility]. Patient is DNI DNR but they would not want surgery should that be needed. Discussed case with Dr. Horta with neurosurgery. Patient will be transferred to [facility] ICU for
neurosurgical monitoring. Patient was given protamine and DDAVP and patient was consented to the platelets. Transfer process initiated. Patient's blood pressure is non- elevated.
<June Kent PA-C - Last Filed: 07/03/24 22:01>
*Critical Care Note
Total Time (30-74mins, 75-104mins- exclusive of procedures): Not Applicable
<Martin Bajwa MD - Last Filed: 07/04/24 08:28>
*Critical Care Note
Total Time (30-74mins, 75-104mins- exclusive of procedures): 40 min
<June Kent PA-C - Last Filed: 07/03/24 22:01>
Update Note
Update Note:
4:27 pm-- Dr. Horta neurosurgery is aware and patient has been accepted to [facility] for multiple hours but ther are currently no beds at [facility].
ED Attending Note
<June Kent PA-C - Last Filed: 07/03/24 22:01>
-
Portions of this chart may have been created with voice recognition software.� Occasional wrong word or��sound alike� substitutions may have occurred due to the inherent limitations of voice recognition software.
<Martin Bajwa MD - Last Filed: 07/04/24 08:28>
ED Attending Note
Patient seen and examined by attending physician: Yes
ED Attending Note:
Patient with recent CVA, discharged to [facility] 2 days ago, presents to ED after repeat CT scan showed worsening intraparenchymal hemorrhage, associated with mass effect. CT scan was ordered secondary to decreasing mental status along with
continual headache over the past 2 days. Upon arrival, patient reports feeling tired with headache. Denies dizziness. Denies nausea. Denies loss of sensation. Patient is currently taking 81 mg aspirin daily. In addition, patient has received
Lovenox subcu injection, with most recent dose this morning.
Physical Exam
General: mild distress, acutely ill. afebrile
Head: nc/at. eomi
Neck: supple. no meningeal signs.
Heart: s1/s2 regular rate and rhythm, no murmur. equal radial pulses.
Lungs: no acute respiratory distress. clear bilaterally
Abdomen: normal bowel sounds. not tender.
Neuro: alert and oriented x 3.
Skin: no rash
Psychiatric: well kept. interactive and cooperative
Extremities: no edema. no calf tenderness.
In light of patient's recent Lovenox administration along with aspirin, we will order DDAVP along with protamine.
CT report reviewed and discussed with on-call neurosurgery, Dr. Horta. Recommends transfer to [facility] for further treatment.
BP stable, not requiring acute treatment. Will monitor closely.
Transfer consent on the chart.
Discharge Plan
Departure
Patient Disposition: Admit
Admit to: ICU
Presentation/result/management discussed w/ accepting MD/DO: Hospitalist
Condition: Critical
Discharge Problem:
Intracranial hemorrhage
Interventions
Interventions:
*Risk Screen - Suicide Last Done: 07/03/24 22:35
*General Assessment Last Done: 07/03/24 12:56
*Neglect/Abuse Screening Last Done: 07/03/24 12:56
ED- Fall Risk Assessment Last Done: 07/03/24 12:56
*ED COVID-19 Vaccine History Last Done: 07/03/24 22:35
*Nursing Disposition Last Done: 07/03/24 22:23
ED- Pulmonary Assessment Last Done: 07/03/24 12:56
ED- Neurological Assessment Last Done: 07/03/24 21:00
ED- Cardiac Assessment Last Done: 07/03/24 12:56
ED Swallowing Screen Last Done: 07/03/24 17:45
Discharge Date and Time
Discharge Date/Time: 07/03/24 22:24
[2024-07-03] MEDS: PROTAMINE 5 MG IV (13:33)
[2024-07-03 14:28] LABS: Hematocrit 28.9 % (39.0-52.0); Hemoglobin 9.1 g/dL (13.0-18.0); Mean Corp Hgb Conc. 31.5 g/dL (33.0-37.0); Mean Corpuscular Hgb 30.2 pg (27.0-31.0); Mean Platelet Volume 12.3 fL (7.4-10.4); Platelet Count 140 10^3/uL (130-400); Red Blood Cell Count 3.01 10^6/uL (4.70-6.10); White Blood Cell Count 13.1 10^3/uL (4.8-10.8)
[2024-07-03] MEDS: DDAVP 59.75 MCG IV (14:32)
[2024-07-03 14:38] LABS: INR 1.03
[2024-07-03 14:47] LABS: ALT (SGPT) 36 U/L (0-50); AST (SGOT) 26 U/L (17-59); Albumin 3.2 g/dl (3.5-5.0); Alkaline Phosphatase 77 U/L (38-126); Blood Urea Nitrogen 17 mg/dl (9-20); Calcium 8.1 mg/dl (8.4-10.2); Carbon Dioxide 26 mmol/L (22-30); Chloride 99 mmol/L (98-107); Estimated Creatinine Clearance 69 ml/min; Glucose 143 mg/dl (70-99); Sodium 134 mmol/L (135-145); Total Bilirubin 0.6 mg/dl (0.2-1.3); Total Protein 5.3 g/dl (6.3-8.2); eGFR > 60.00
[2024-07-03] MEDS: OFIRMEV 100 IV (17:18)
--- NOTE | 2024-07-03 17:59 | HPS.HSE ---
Family Physician
-
Family Physician: Doyle Avila
Chief Complaint
-
headache, lethargic, abnormal head CT
History of Present Illness
The patient is a 74yo M with PMhx of HTN, Afib, HLD, GERD, COPD, HFrEF s/p ICD, chronic steroids, discharged from here on 07/01 with diagnosis of acute R MCA embolic stroke and R SUE embolic stroke, left hemiplegia, bacteremia with E.faecalis with
concern for endocarditis, found at that time to have PVT and suspected PE, hematology was consulted, he was started on Lovenox, and thrombophilia work-up was initiated. PICC line was placed for 6 weeks of IV abx (ceftriaxone/Ampicillin until Jul 29
2024), with plans for chronic suppression due to pacemaker, without initial source of infection found. He was dc'd to acute rehab at [facility].
He presents to ED today due to concerns for intracranial bleeding found on outpatient CT scan ( ordered due to intermittent right-sided headaches for the past week, more lethargy, speaking less than usual, and headache behind his right eye). No
vision changes. He takes 1 baby aspirin daily and 90 mg Lovenox daily at [facility] (Cardiology deferred to Hematology re: anticoagulation, given comorbidities and suspected septic emboli as etiology). He denies any changes to his vision. His
is his power of micropaleontologist. He is DNI/DNR but they do want full medical management/treatment. Increased fatigue, no CP, no SOB.
Neurosurgery consulted from ED, who saw the patient, discussed the patient's clinical status, possible plans of care ([facility] beds are full, and no plans for surgical intervention at this time), and their plan is for admission here rather than
transfer to outside facility, with monitoring in our ICU, repeat CT, serial neuro-checks.
ED txt:
Protamine IV, DDAVP IV, Ofirmev IV, Platelet transfusion
Medical History
Past Medical History
Past Medical History: Reports CAD (Nonocclusive coronary artery disease by catheterization on 01/12/2015. ), CHF, COPD, HTN, Hypercholesterolemia and Other
Additional Past Medical History:
COPD
former smoker
sarcoidosis
DVT/PE-patient on Xarelto
daily alcohol use
Paroxysmal A-fib
HTN
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
CHF/ nonischemic cardiomyopathy, EF 35-40% April 2023
nonocclusive CAD December 2014 cardiac cath
Mitral regurgitation, moderate to severe by echo in 12/2014.
GERD
HLD
basal cell skin CA
OA right knee
Past Surgical History: Reports Orthopedic (Right knee arthroscopy, partial medial meniscectomy, medial femoral chondroplasty.) and Other (Mediastinoscopy)
Social History
Tobacco: Former Smoker (quit 2014)
Alcohol: Daily (Patient reports he drinks 1 shot of whiskey 4 times a week)
Drug: None
Personal:
Living: With Family ()
Employment: Retired
Family History
Family History: Other (father-pacemaker/arryhthmia )
Allergies / Home Medications
Allergies reflects when Allergies were last updated in [facility].
Home Medications with original date entered in [facility]
Allergy/Medication List:
Allergies
Allergy/AdvReac Type Severity Reaction Status Date / Time
No Known Allergies Allergy Verified 06/11/24 15:08
Home Medications
amiodarone 200 mg tablet (Pacerone) 200 mg PO DAILY VTach 01/20/24
sacubitril 24 mg-valsartan 26 mg tablet (Entresto) 1 tab PO BID Heart Failure 01/20/24
spironolactone 25 mg tablet 12.5 mg PO DAILY Blood Pressure 01/20/24
sulfamethoxazole 400 mg-trimethoprim 80 mg tablet (Bactrim) 1 tab PO DAILY Infection 01/20/24
therapeutic multivitamin 1 tab PO DAILY Supplement 01/20/24
acetaminophen 325 mg tablet (Tylenol) 650 mg PO Q4HPRN PRN MILD PAIN 06/11/24
carvedilol 6.25 mg tablet 6.25 mg PO BID Blood Pressure 06/11/24
furosemide 20 mg tablet 20 mg PO DAILY Fluid Retention/Swelling 06/11/24
pantoprazole 40 mg tablet,delayed release 40 mg PO DAILY Gastrointestinal Issue 06/11/24
prednisone 20 mg tablet 30 mg PO DAILY ANTI-INFLAMMATION 06/11/24
tiotropium bromide 2.5 mcg/actuation mist for inhalation (Spiriva Respimat) 2 puff inhalation R DAILY Lung/Breathing Issues 06/11/24
Ampicillin 2,000 mg 108 mls/hr IV Q4H 07/01/24
aspirin 81 mg chewable tablet 81 mg PO DAILY #30 tabs 07/01/24
atorvastatin 80 mg tablet 80 mg PO QPM #30 tabs 07/01/24
budesonide-formoterol HFA 80 mcg-4.5 mcg/actuation aerosol inhaler (Symbicort) 2 puff inhalation R BID #10 grams 07/01/24
enoxaparin 100 mg/mL subcutaneous syringe 90 mg (0.9 mL) SC Q12H #10 mL 07/01/24
carboxymethylcellulose 0.5 %-glycerin 0.9 % eye drops (Refresh Optive) 1 drp BOTH EYES Q6HPRN PRN DRY EYES 07/03/24
ceftriaxone 2 gram solution for injection 2,000 mg IV BID 07/03/24
clotrimazole 1 % topical cream 1 applic topical BID BUTTOCKS AND INGUINAL 07/03/24
dapagliflozin propanediol 10 mg tablet (Farxiga) 10 mg PO DAILY 07/03/24
folic acid 1 mg tablet 1 mg PO DAILY 07/03/24
lidocaine 4 % topical patch 3 patch topical DAILY 07/03/24
methyl salicylate 15 %-menthol 10 % topical cream 1 applic topical QIDPRN PRN LOW BACK PAIN 07/03/24
tamsulosin 0.4 mg capsule 0.4 mg PO HS 07/03/24
thiamine HCl (vitamin B1) 100 mg tablet 100 mg PO DAILY 07/03/24
Review of Systems
-
A 12 point ROS was completed and negative except as noted: Yes
Physical Exam
Vital Signs
Vital Signs
Temp Pulse Resp BP Pulse Ox
99 F 72 15 97/86 100
07/03/24 17:51 07/03/24 17:51 07/03/24 17:51 07/03/24 17:51 07/03/24 17:51
Physical Exam
General: Conversant, Slurred Speech and Appears Chronically Ill
HEENT: NormoCephalic and Anicteric
Respiratory: Clear
Cardiac: S1/S2 and Regular Rhythm
GI: Soft, Non Tender and Non Distended
Skin: Warm and Dry
Neuro: Facial Droop and Other (left hemiparesis)
Psych: Calm
Laboratory Results
-
07/03/24 13:30
07/03/24 13:30
Laboratory Results
PT 14.0 Sec (11.4-14.6) 07/03/24 13:30
INR 1.03 07/03/24 13:30
APTT 38.0 Sec (23.4-35.0) H 07/03/24 13:30
Total Bilirubin 0.6 mg/dl (0.2-1.3) 07/03/24 13:30
AST 26 U/L (17-59) 07/03/24 13:30
ALT 36 U/L (0-50) 07/03/24 13:30
Alkaline Phosphatase 77 U/L (38-126) 07/03/24 13:30
Data Reviewed
-
CT Scan: Report Reviewed by me (large right MCA territory infarction involving primarily the temporal lobe, and parietal lobe. There is evidence of hemorrhagic conversion within the anterior temporal lobe measuring approximately 3 cm x 1.5 cm. No
obvious evidence of increased midline shift is seen. No evidence of uncal herniati)
Medical Tests (Nuc Med, Echo, EKG etc): Report Reviewed by me (NSR)
Impression/Plan
-
IMPRESSION:The patient is a 74yo M with history of multiple CVAs on therapeutic anticoagulation, pulmonary emboli, portal vein thrombosis, DVT, sarcoidosis, on chronic steroids, bacteremia with endocarditis on therapeutic Lovenox, recent right MCA
stroke, SUE stroke suspected due to septic emboli, presents to ED today due to concerns for intracranial bleeding found on outpatient CT scan ( ordered due to intermittent right-sided headaches for the past week, more lethargy, speaking less than
usual, and headache behind his right eye). No vision changes. He takes 1 baby aspirin daily and 90 mg Lovenox daily at [facility] (Cardiology deferred to Hematology re: anticoagulation, given comorbidities and suspected septic emboli as etiology).
He denies any changes to his vision. His is his power of micropaleontologist. He is DNI/DNR but they do want full medical management/treatment. Increased fatigue, no CP, no SOB.
Neurosurgery consulted from ED, who saw the patient, discussed the patient's clinical status, possible plans of care ([facility] beds are full, and no plans for surgical intervention at this time), and their plan is for admission here rather than
transfer to outside facility, with monitoring in our ICU, repeat CT, serial neuro-checks.
ED txt:
Protamine IV, DDAVP IV, Ofirmev IV, Platelet transfusion
CT scan head: large right MCA territory infarction involving primarily the temporal lobe, and parietal lobe. There is evidence of hemorrhagic conversion within the anterior temporal lobe measuring approximately 3 cm x 1.5 cm. No obvious evidence
of increased midline shift is seen. No evidence of uncal herniation is noted.
# Hemorrhagic conversion of recent acute embolic (septic) CVA with midline shift, residual left hemiparesis, dysarthria, and dysphagia
-ICU admission
- Neurosurgery consulted from the ED.
-Hold aspirin and Lovenox, s/p ED txt as above
-Repeat head CT in the morning
-Repeat head CT this evening, as per discussion with Neurosurgery, is stable from prior. Pt is clinically stable at this time
-Keep SBP less than 140, head of bed elevated greater than 30 degrees
-HOLD DVT proph and anticoagulation at this time, consult HEME for the morning to address anticoagulation given bleed
-neuro-checks Q 1 H
#Bacteremia with concern for endocarditis:continue ampicillin 2 gm IV Q 4 h and IV ceftriaxone 2 gram daily through 07/29/2024 per ID Then suppressive treatment with Amoxicillin per ID- OP ID follow up. Also needs OP GI follow up.
-Persistent leukocytosis.
-Cont IV abx as per outpatient routine
-Bactrim for PJP prophylaxis
-Chronic steroid use for sarcoidosis makes him at high risk of infection
#Skin/stage 2:
-skin tears arms, scab - buttocks, wound care
#Sarcoidosis
- continue outpatient Prednisone 30 mg daily and Bactrim DS 1 daily for PJP prophylaxis
#COPD
- continue home meds, stable
# Essential HTN:
- Continue Coreg 6.25 mg bid, Lasix 20 mg daily, Aldactone 12.5 mg daily,
-maintain BP less than 140 systolic
#HDL
-lNPO for now
- Atorvastatin 80 mg daily.
#Impaired glucose tolerance
- Farxiga 10 mg daily
#A-Fib/CHF, euvolemic, stable
-Amiodarone 200 mg daily, Coreg 6.25 mg bid, Lasix 20 mg daily, Aldactone 12.5 mg daily, Farxiga 10 mg daily, Entresto (24/26 mg) 1 tab bid
#Acute Left lower extremity DVT, pulmonary embolism concern for multiple infarcts including splenic
-Followed by hematology with hypercoagulable workup ordered.
-holding anticoagulation, consult to Heme
#Right adrenal mass
- OP follow up with PCP/ Oncology.
#Anemia: Likely multifactorial, has been stable in the 9 range, monitor.
#Alcohol disorder
- Thiamine 100 mg daily and Multivitamin
#Obesity/NITA
- not using CPAP
#H/O GI bleeding, GERD
- continue with Pantoprazole 40 mg daily and monitor
#Bladder/BPH: Urinary retention, on Flomax. (07/02) Marroquin removed today. Void trial with time void, PVRs, PRN straight cath
DVT proph-PCDs
Full Code
--- NOTE | 2024-07-03 18:17 | CON.NS ---
Consultation
-
Date/Time Consultation Performed: 07/03/2024; 18:20
Performing Provider: Rula
Chief Complaint
History of Present Illness
This is a neurosurgical consultation on a 74-year-old gentleman with a past medical history of recently having a right MCA territory stroke with residual left-sided weakness, active medical issues including congestive heart failure, COPD, atrial
fibrillation, CHF, bacteremia with concern for endocarditis, on antibiotics including ampicillin, ceftriaxone per ID. Who presented emergently to the ED today with concerns of intracranial bleeding found on outpatient CT scan. He reported on and
off headaches for the past week, behind his right eye. The reported that he was increasingly lethargic yesterday with less verbal output. He is currently at [facility]. He is also on antibiotics for bacteremia. He is DNR/DNI but they do
want full medical management/treatment. He is on baby aspirin, and Lovenox. [facility] which demonstrated hemorrhage within the area of his previous right MCA infarction. Neurosurgery consulted for further
input. Patient was given protamine, and DDAVP. He was also given platelet transfusion.
Patient seen and examined. is at bedside.
Review of Systems
-
A 10 point review of systems including constitutional, ENT, cardiovascular, respiratory, GI, , neurologic, endocrinologic, hematologic, musculoskeletal, psychiatric was performed, was negative, except for as stated in HPI.
Medication and Allergies
Home Medications
Home Medications
�Medication �Instructions �Recorded
amiodarone 200 mg tablet (Pacerone) 200 mg PO DAILY VTach 01/20/24
sacubitril 24 mg-valsartan 26 mg 1 tab PO BID Heart Failure 01/20/24
tablet (Entresto)
spironolactone 25 mg tablet 12.5 mg PO DAILY Blood Pressure 01/20/24
sulfamethoxazole 400 1 tab PO DAILY Infection 01/20/24
mg-trimethoprim 80 mg tablet
(Bactrim)
therapeutic multivitamin 1 tab PO DAILY Supplement 01/20/24
acetaminophen 325 mg tablet 650 mg PO Q4HPRN PRN MILD PAIN 06/11/24
(Tylenol)
carvedilol 6.25 mg tablet 6.25 mg PO BID Blood Pressure 06/11/24
furosemide 20 mg tablet 20 mg PO DAILY Fluid 06/11/24
Retention/Swelling
pantoprazole 40 mg tablet,delayed 40 mg PO DAILY Gastrointestinal 06/11/24
release Issue
prednisone 20 mg tablet 30 mg PO DAILY ANTI-INFLAMMATION 06/11/24
tiotropium bromide 2.5 2 puff inhalation R DAILY 06/11/24
mcg/actuation mist for inhalation Lung/Breathing Issues
(Spiriva Respimat)
Ampicillin 2,000 mg 108 mls/hr IV Q4H 07/01/24
aspirin 81 mg chewable tablet 81 mg PO DAILY #30 tabs 07/01/24
atorvastatin 80 mg tablet 80 mg PO QPM #30 tabs 07/01/24
budesonide-formoterol HFA 80 2 puff inhalation R BID #10 grams 07/01/24
mcg-4.5 mcg/actuation aerosol
inhaler (Symbicort)
enoxaparin 100 mg/mL subcutaneous 90 mg (0.9 mL) SC Q12H #10 mL 07/01/24
syringe
carboxymethylcellulose 0.5 1 drp BOTH EYES Q6HPRN PRN DRY EYES 07/03/24
%-glycerin 0.9 % eye drops
(Refresh Optive)
ceftriaxone 2 gram solution for 2,000 mg IV BID 07/03/24
injection
clotrimazole 1 % topical cream 1 applic topical BID BUTTOCKS AND 07/03/24
INGUINAL
dapagliflozin propanediol 10 mg 10 mg PO DAILY 07/03/24
tablet (Farxiga)
folic acid 1 mg tablet 1 mg PO DAILY 07/03/24
lidocaine 4 % topical patch 3 patch topical DAILY 07/03/24
methyl salicylate 15 %-menthol 10 1 applic topical QIDPRN PRN LOW 07/03/24
% topical cream BACK PAIN
tamsulosin 0.4 mg capsule 0.4 mg PO HS 07/03/24
thiamine HCl (vitamin B1) 100 mg 100 mg PO DAILY 07/03/24
tablet
Allergies
Allergies
Allergy/AdvReac Type Severity Reaction Status Date / Time
No Known Allergies Allergy Verified 06/11/24 15:08
Physical Exam
-
Exam:
Awake, alert, conversant
Pupils are equal and reactive
Extraocular movements are full
Left visual and hemineglect
Dense left hemiplegia
Full strength in right upper and lower extremity
Follow commands on the right
Head is normocephalic atraumatic
Neck is supple
Breathing nonlabored
Cardiac: Regular rate
Abdomen is soft, nondistended nontender
Extremities are warm
Left upper and lower extremity mildly edematous
Noncontrast CT scan of the head performed on 07/03/2024 was reviewed. Images were personally reviewed and interpreted by me. There is evidence of large right MCA territory infarction involving primarily the temporal lobe, and parietal lobe. There
is evidence of hemorrhagic conversion within the anterior temporal lobe measuring approximately 3 cm x 1.5 cm. No obvious evidence of increased midline shift is seen. No evidence of uncal herniation is noted.
Problems
-
Problem Status Onset Code
Intracranial hemorrhage I62.9
Assessment / Plan
-
This is a 74-year-old gentleman with multiple medical comorbidities, including pulmonary emboli, multiple CVAs on therapeutic anticoagulation, pulmonary emboli, portal vein thrombosis, DVT, sarcoidosis, on chronic steroids, bacteremia with
endocarditis on therapeutic Lovenox, recent right MCA stroke, SUE stroke, now with hemorrhagic conversion.
He has been reversed appropriately. Recommend follow-up CT scan in approximately 6 weeks from the initial 1. If this is stable, okay to monitor closely at [facility].
Continue with q. an hour neurochecks in the ICU.
Continue with strict blood pressure control less than systolics 140.
Hold DVT prophylaxis, anticoagulation until repeat CT is performed on 07/04/2024 AM.
Keep n.p.o. until follow-up CT is performed on 07/04/2024 AM
Head of bed greater than 30 degrees.
I also had a david and thorough discussion with the patient's at bedside. If the patient's condition deteriorates to the point where his hemorrhage increases, and there is increased brain compression, meriting surgical decompression, his
overall neurological functional prognosis will be quite poor, in light of his multiple comorbid conditions including bacteremia, possibility of septic emboli, right MCA CVA on therapeutic anticoagulation.
She expresses that if his neurological condition worsens, and that that may mean that especially in light of his dense left hemiplegia, that he may require tracheostomy PEG/intubation, that she would be hesitant in pursuing surgical intervention
for him.
Given this, continue with ongoing medical management as stated above.
Will need to revisit risks/benefits of initiation of therapeutic anticoagulation once it has been determined that the ICH has stabilized. Ultimately, from a neurosurgical standpoint, would recommend holding therapeutic anticoagulation for
approximately 1 week at minimum. However, Appreciate hematology input regarding this.
[2024-07-03] MEDS: NSS 1000 IV (22:31)
[2024-07-03] MEDS: SYMBICORT 80/4.5 MCG INHALER INH (22:44)
[2024-07-03] MEDS: COREG 6.25 MG PO (23:04)
[2024-07-03] MEDS: ENTRESTO 24 MG/26 MG 1 TAB PO (23:05)
[2024-07-03] MEDS: FLOMAX 0.4 MG PO (23:05)
[2024-07-03] MEDS: AMPICILLIN 108 MG IV (23:07)
[2024-07-03] MEDS: ROCEPHIN 2000 MG IV (23:08)
[2024-07-03] MEDS: STERILE WATER FOR INJECTION 20 ML IV (23:08)
--- NOTE | 2024-07-03 23:35 | PTCARENOTE ---
Received pt from ED RN. Pt is AAOx3, left sided weakness/flaccid - has sensation, left sided facial droop, forgetful @ times. Neurological q1, NIH per protocol (see worklist). NSR on the monitor, order to keep SBP <140 (see vitals). On RA O2 sat
90%, lungs diminished. Incont of stool, hygiene provided. See wound care worklist for wounds. NS infusing @ 75 ml/hr. CHG bath provided. @ bedside. Pt is laying in bed with call marquez in reach. Safe environment maintained.
[2024-07-03] MEDS: LOTRIMIN 1% CREAM TOPICAL (23:57)
[2024-07-04] VITALS (24 sets, daily range): BP systolic 110–154; BP diastolic 54–78; BMI 30.4
[2024-07-04] MEDS: AMPICILLIN 108 MG IV ×5 (04:02→20:22)
--- NOTE | 2024-07-04 04:09 | PTCARENOTE ---
AM labs provided. Systems reviewed, no new changes in assessment. Neurological checks q1 (see worklist). @ bedside. Call marquez in reach. Safe environment maintained.
[2024-07-04 04:15] LABS: % Basophils 0.1 % (0-2); % Eosinophils 0.8 % (0-6); % Immature Granulocytes 4.5 % (0-0.5); % Lymphocytes 9.1 % (20.5-51.1); % Monocytes 3.6 % (1.7-9.3); % Neutrophils 81.9 % (42.2-75.2); Absolute Eosinophils 0.1 10^3/uL (0-0.7); Absolute Immature Granulocytes 0.4 10^3/uL (0-0.05); Absolute Lymphocytes 0.8 10^3/uL (1.2-3.4); Absolute Monocytes 0.3 10^3/uL (0.1-0.6); Hematocrit 27.3 % (39.0-52.0); Hemoglobin 8.3 g/dL (13.0-18.0); Mean Corp Hgb Conc. 30.4 g/dL (33.0-37.0); Mean Corpuscular Volume 98.6 fL (80.0-94.0); Mean Platelet Volume 11.7 fL (7.4-10.4); Nucleated Red Blood Cells % 0.4 % (-); Platelet Count 119 10^3/uL (130-400); Red Blood Cell Count 2.77 10^6/uL (4.70-6.10); Red Cell Dist. Width 19.1 % (11.5-14.5); White Blood Cell Count 8.5 10^3/uL (4.8-10.8)
[2024-07-04 04:51] LABS: ALT (SGPT) 35 U/L (0-50); AST (SGOT) 26 U/L (17-59); Alkaline Phosphatase 61 U/L (38-126); Blood Urea Nitrogen 19 mg/dl (9-20); Calcium 7.9 mg/dl (8.4-10.2); Carbon Dioxide 24 mmol/L (22-30); Chloride 102 mmol/L (98-107); Estimated Creatinine Clearance 65 ml/min; Glucose 89 mg/dl (70-99); Potassium 3.9 mmol/L (3.5-5.1); Sodium 134 mmol/L (135-145); Total Bilirubin 0.9 mg/dl (0.2-1.3); Total Protein 5.1 g/dl (6.3-8.2); eGFR > 60.00
[2024-07-04] MEDS: TYLENOL 650 MG PO (05:14)
--- NOTE | 2024-07-04 05:22 | PTCARENOTE ---
Pt states he has to void but is unable. Pt bladder scanned for 231 ml, no urine output this shift.
--- NOTE | 2024-07-04 07:19 | CON.INTV ---
Addendum entered and electronically signed by Magalis Guevara DO 07/04/24 13:25:
Correction to plan:
Patient had been on IV abx for 6 weeks due to prior hospitalization history of suspected endocarditis
IV abx are resumed
CT head stable
Also, discussed case with care team, ok with decreased interval of neurochecks to q2
We can transfer to stepdown
We will follow on the floors given VTE
Original Note:
Consultation
Consultation Request
Date/Time Consultation Requested: 07/04/24
Date/Time Consultation Performed: 07/04/24
Performing Provider: Ismael
Reason for Consultation: ICU
Medical History
-
History of Present Illness:
Patient is a 74-year-old male with previous history of hypertension, A-fib, COPD, heart failure reduced EF status post ICD, sarcoidosis on chronic pred recently discharged from on 07/01/2024 with diagnosis of acute right MCA and SUE stroke
complicated by E faecalis bacteremia, DVT and PE started on Lovenox, PICC line placed for 6 weeks of IV antibiotics and discharged to acute rehab at [facility]. He presents with concerns for intracranial bleeding found on outpatient CT scan which was
ordered due to new complaints of intermittent right-sided headaches for the past week with increasing lethargy and decreased mentation. CT demonstrates new right temporoparietal occipital CVA with 3 cm hemorrhagic conversion. He is currently DNR.
He is admitted to ICU. He has remained hemodynamically stable without pressors.
Past Medical History
Past Medical History: Other (see list below)
Social History
Tobacco: Non-smoker
Alcohol: None
Drug: None
Family History
Family History: Reviewed & Not Pertinent
Allergies / Home Medications
Allergies
Allergy/AdvReac Type Severity Reaction Status Date / Time
No Known Allergies Allergy Verified 06/11/24 15:08
Home Medications
�Medication �Instructions �Recorded �Confirmed �Last Taken �Type
amiodarone 200 mg tablet (Pacerone) 200 mg PO DAILY VTa 01/20/24 07/03/24 07/03/24 History
sacubitril 24 mg-valsartan 26 mg 1 tab PO BID Heart Failure 01/20/24 07/03/24 07/03/24 History
tablet (Entresto)
spironolactone 25 mg tablet 12.5 mg PO DAILY Blood Pressure 01/20/24 07/03/24 07/03/24 History
sulfamethoxazole 400 1 tab PO DAILY Infection 01/20/24 07/03/24 07/03/24 History
mg-trimethoprim 80 mg tablet
(Bactrim)
therapeutic multivitamin 1 tab PO DAILY Supplement 01/20/24 07/03/24 07/03/24 History
acetaminophen 325 mg tablet 650 mg PO Q4HPRN PRN MILD PAIN 06/11/24 07/03/24 07/03/24 History
(Tylenol)
carvedilol 6.25 mg tablet 6.25 mg PO BID Blood Pressure 06/11/24 07/03/24 07/03/24 History
furosemide 20 mg tablet 20 mg PO DAILY Fluid 06/11/24 07/03/24 07/03/24 History
Retention/Swelling
pantoprazole 40 mg tablet,delayed 40 mg PO DAILY Gastrointestinal 06/11/24 07/03/24 07/03/24 History
release Issue
prednisone 20 mg tablet 30 mg PO DAILY ANTI-INFLAMMATION 06/11/24 07/03/24 07/03/24 History
tiotropium bromide 2.5 2 puff inhalation R DAILY 06/11/24 07/03/24 07/03/24 History
mcg/actuation mist for inhalation Lung/Breathing Issues
(Spiriva Respimat)
Ampicillin 2,000 mg 108 mls/hr IV Q4H 07/01/24 07/03/24 07/03/24 08:00 Rx
aspirin 81 mg chewable tablet 81 mg PO DAILY #30 tabs 07/01/24 07/03/24 07/03/24 Rx
atorvastatin 80 mg tablet 80 mg PO QPM #30 tabs 07/01/24 07/03/24 07/02/24 Rx
budesonide-formoterol HFA 80 2 puff inhalation R BID #10 grams 07/01/24 07/03/24 07/03/24 Rx
mcg-4.5 mcg/actuation aerosol
inhaler (Symbicort)
enoxaparin 100 mg/mL subcutaneous 90 mg (0.9 mL) SC Q12H #10 mL 07/01/24 07/03/24 07/03/24 11:00 Rx
syringe
carboxymethylcellulose 0.5 1 drp BOTH EYES Q6HPRN PRN DRY EYES 07/03/24 07/03/24 Unknown History
%-glycerin 0.9 % eye drops
(Refresh Optive)
ceftriaxone 2 gram solution for 2,000 mg IV BID 07/03/24 07/03/24 07/03/24 History
injection
clotrimazole 1 % topical cream 1 applic topical BID BUTTOCKS AND 07/03/24 07/03/24 Unknown History
INGUINAL
dapagliflozin propanediol 10 mg 10 mg PO DAILY 07/03/24 07/03/24 07/03/24 History
tablet (Farxiga)
folic acid 1 mg tablet 1 mg PO DAILY 07/03/24 07/03/24 07/03/24 History
lidocaine 4 % topical patch 3 patch topical DAILY 07/03/24 07/03/24 Unknown History
methyl salicylate 15 %-menthol 10 1 applic topical QIDPRN PRN LOW 07/03/24 07/03/24 07/03/24 History
% topical cream BACK PAIN
tamsulosin 0.4 mg capsule 0.4 mg PO HS 07/03/24 07/03/24 Unknown History
thiamine HCl (vitamin B1) 100 mg 100 mg PO DAILY 07/03/24 07/03/24 07/03/24 History
tablet
Review of Systems
-
History Source: Patient
All other systems: Negative unless noted
Vitals / Labs / Diagnostic Testing
Vital Signs
Temp Pulse Resp BP Pulse Ox
98.3 F 74 14 110/58 93
07/04/24 02:55 07/04/24 06:00 07/04/24 06:00 07/04/24 06:00 07/04/24 06:00
Lab Data
07/04/24 04:02
07/04/24 04:03
Laboratory Results
07/03/24
13:30
PT 14.0
INR 1.03
APTT 38.0 H
Diagnostic Testing:
Physical Exam
-
HEENT: Normocephalic, Anicteric and Moist Mucous Membranes
Cardiovascular: S1/S2 and Regular Rhythm
Respiratory: Clear and Non-Labored Respirations
GI: Soft, Non Distended and Non Tender
Neurology: Awake, Alert and Other (eyes closed, but able to speak/answer questions)
Skin: Warm and Dry
General: Comfortable and Other (NAD)
Assessment
-
Patient is a 74-year-old male with previous history of hypertension, A-fib, COPD, heart failure reduced EF status post ICD, sarcoidosis on chronic pred recently discharged from on 07/01/2024 with diagnosis of acute right MCA and SUE stroke
complicated by E faecalis bacteremia, DVT and PE started on Lovenox, PICC line placed for 6 weeks of IV antibiotics and discharged to acute rehab at [facility]. He presents with concerns for intracranial bleeding found on outpatient CT scan which was
ordered due to new complaints of intermittent right-sided headaches for the past week with increasing lethargy and decreased mentation. CT demonstrates new right temporoparietal occipital CVA with 3 cm hemorrhagic conversion. He is currently DNR.
He is admitted to ICU. He has remained hemodynamically stable without pressors.
Acute R temporoparietooccipital CVA with 3cm hemorrhagic conversion 07/03/24
Subacute R MCA and SUE CVA 06/18/24
R sided HAs, lethargy
Subacute LLE DVT 06/18/24
Conditions present prior to admission:
Moderate COPD/centrilobular emphysema (post-BD FEV1: 2.33L / 80% via spirometry from 09/06/2023)
Former smoker quit 2014.
Pulmonary nodule-2 mm right upper lobe stable 2022
NITA.
Obesity.
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
Hypertension.
Hyperlipidemia.
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
PAF.
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
Chronic amiodarone-100 mg daily
Nonischemic CM-EF 35%/ICD.
Diastolic CHF.
CAD-nonocclusive 2014.
Moderate MR.
GERD.
Basal cell skin CA.
Left knee arthroscopy 2010. Mediastinal Skippy. Right knee surgery 2017. Basal cell left ear 2020. Cataract 2021. Melanoma right wrist 2023
Plan
Currently able to speak but has poor eye contact, withdrawn
CT showing extension of CVA into hemorrhage, repeat pending today
Neurosurg consult placed, appreciate eval--monitor for now-- is not sure about surgery
Currently on q1 checks, but can likely decrease intervals to q2 per surg
Denies pain at this time.
Pain/sedation: PRN
RASS goals: 0
Hemodynamically stable, not requiring pressors.
Cardiac history reviewed--NICM EF 35%, HTN, VT history, CAD, Mod MR
Prior ECHO reviewed
Resume home meds as able
Monitor on telemetry
Oxygen needs: currently on RA
Has active subacute DVT recently diagnosed, would be only a candidate for IVC filter at this point--will consult IR
Cannot resume OAC
Prior history of lung disease: COPD/emphysema/sarcoid, on chronic prednisone, can resume
Supplemental O2 as indicated to maintain sats > 89%
CXR/CT reviewed indicating no acute process
Diet advancement per speech, eval placed
Economic Analysis Director recommendations
Aspiration precautions, HOB > 30 degrees
GI prophylaxis if indicated
Creat at baseline, no history of renal disease
Void trials
Follow urine output, critical I/Os
Replete electrolytes as needed
No signs/symptoms suspicious for infectious etiology at this time
Observe off antibiotics for now
Follow fever trend, WBC count
Adrenal mass noted, history of repeated clots/CVA--could be underlying malignancy
Heme eval obtained
Not a candidate for OAC, agree with IVC placement
CBC stable, no signs of bleeding or coagulopathy.
DVT prophylaxis as assessed based on risk, including mechanical SCDs
Can transfuse if indicated for Hb <7, plt < 10
INR WNL
No prior h/o diabetes or thyroid disease
Monitor accuchecks PRN/SS coverage if needed
Patient is DNR, discussed case with at bedside about his GOC and he has advanced directives stating he would not want artificial means
She is discussing [facility] patient and her family about GOCs
Diagnostic Data
CXR 07/01/24- No active cardiopulmonary disease. The tip of the PICC line is at the cavoatrial junction
Chest x-ray 01/20/2024-bibasilar pneumonia
Chest x-ray 04/26/23-left chest wall defibrillator placed with lead tips in the right atrium and right ventricle������
CT chest. Cbq-kfvc-1-2020 -no evidence of pulmonary malignancy. Stable 2.8 cm subpleural lipoma at the posterior left base. Stable large 2 cm pre tracheal lymph node at the left koko. Minimal emphysematous changes left base. Atherosclerosis�������
CT [id number]-03-30-2022- Stability of 2 mm right upper lobe nodule. Stable since 2014. Mild subpleural parenchymal scarring with emphysematous change in the upper lateral aspect of the left lower lobe as well on the lateral basilar portion of
the left lower lobe.�������
CT [id number] 04/20/23-mild central lobular emphysema, 2 mm solid subpleural nodule right upper lobe stable.�������
CT chest 04/25/23-no evidence for pulmonary embolism, mild bibasilar segmental atelectasis, mediastinal and bilateral hilar lymphadenopathy, some of which are partially calcified. These are unchanged compared to recent CT chest 04/20/23 and only
minimally increased compared to 2014, prominence of main pulmonary trunk suggesting pulmonary artery hypertension, 1.3 cm left thyroid nodule unchanged 2014
CTA Chest 01-26-2024- No evidence of pulmonary embolus; Findings suggesting pneumonia. This is suggestive of Covid 19 type pneumonia. Moderate. New from 04/25/2023; findings suggesting mild emphysematous disease. Enlarged incidental right probable
adrenal mass.
CT AP 06/17/24- Concern raised for pulmonary embolism within the visualized right main pulmonary artery. Parenchymal opacities within both lower lungs, most likely atelectasis, although pneumonia is also possible. Stranding of the fat surrounding
the gallbladder, raising concern for acute cholecystitis, and please correlate clinically. As described, poor opacification of the portal vein, but findings raise concern for thrombosis involving the right portal vein. Two focal splenic infarcts.
Splenomegaly. Small left adrenal gland mass, stable, likely an adenoma. Right adrenal gland mass, which is not definitively characterized, and was not present on CT scan in 2008. Continued follow-up is recommended.
CT Head 07/03/24- 1.). Subacute right temporoparietal occipital infarct with 3 cm internal area of subacute parenchymal hemorrhage not significantly changed when compared with examination earlier today
2). Subacute Nonhemorrhagic pericallosal branch right anterior cerebral artery nonhemorrhagic infarct
3). Moderate diffuse cortical and cerebellar atrophy
06/18/24- 1). There is subacute infarct in the distribution of the pericallosal branch of the right anterior cerebral artery with associated petechial hemorrhage similar to that seen on the prior study
2). There is 10 cm subacute right middle cerebral artery infarct involving portions of the right temporal, parietal and occipital lobes with associated petechial hemorrhage at its anterior margin similar to that seen on the 06/14/2024 examination.
3). Both infarcts are associated with mass effect with effacement of the overlying sulci and approximately 2 mm shift of midline structures to the left
PET scan-[facility]-05/16/23-increased metabolic activity at the left cardiac border/left ventricle, indicating active disease-sarcoidosis, which correlates with a cardiac MRI findings, hilar and mediastinal lymphadenopathy with increased
metabolic activity indicates active disease as well, cardiac SUV ranging 2.8-3/3, mediastinal, hilar SUV ranging 2.3-3.16 and right hilar lymph node, SUV 3.06, no abnormal pulmonary uptake.
Lower extremity ultrasound 01/03/2024-very small subcutaneous edema right ankle, severe tendinosis right peroneal longus and brevis tendons
Echocardiogram-2016- EF normalized from 20 to 55 %�������
Echocardiogram 04/25/23-EF 35-40%, mild global hypokinesis, PA systolic 26-31, compared to 2022, LV is dilated and increased from 5.8-7.2 cm and the EF was decreased from 45% to 35-40%�������
Cardiac MRI 04/26/23-severe thinning akinesis and transmural enhancement of the inferolateral, inferior whitten consistent with chronic myocardial infarction, global left ventricular hypokinesis�������
Cardiac catheterization 04/25/23-nonobstructive coronary artery disease, dilated cardiomyopathy with severe posterior basilar hypokinesis and global hypokinesis.
HST 07/03/23-AHI-10, desaturation josselin 84%, 5.3 minutes spent less than 80% saturation.
Spirometry-2014- FEV1 2.5, 3-73%,FVC 3.61,83 9 BD response Ratio 70�������
PFT-2018- FEV1 3.1, 1-99%,FVC 4.66,110 TLC 103 DLCO 68�������
UFC-[id number]- FEV1 3.02-100%, FVC 4.44, 108 ratio 63 FEF 25-75 1.11, 48 33 BD response�������
[id number]-[id number]- PFT- FEV1 2.73-92%,FVC 4.60, 113, ratio 57 TLC 102 DLCO 85�������
Spirometry 06/12/23-FEV1 2.48-85%, FVC 3.36-83%, no significant BD response. Mild restriction.�������
PFT 07/25/23-FEV1 2.57-87%, FVC 3.84-95%, no significant BD response, TLC 92%, RV 70%, DLCO 69%, DLCO/VA 77%. Mild obstruction and mild reduction in diffusing capacity.�������
Spirometry 09/06/23-FEV1 2.27-70%, FVC 3.93-98%, no significant BD response. Mild obstruction
-----
Critical Care time 75 mins -- The patient is admitted for acute critical illness for the treatment of vital organ failure and/or prevention of further life-threatening conditions. Total care includes time spent in review of history, physical exam,
medications, hemodynamic/ventilator parameters, laboratory data, imaging and discussion with house staff, pharmacy, respiratory therapy, commercial credit specialist, and nursing.
Case discussed with care team.
[2024-07-04] MEDS: LIDOCAINE 4% PATCH 3 PATCH TOPICAL (07:21)
[2024-07-04] MEDS: BACTRIM 400 MG/80 MG 1 TABLET PO (07:22)
[2024-07-04] MEDS: FOLVITE 1 MG PO (07:22)
[2024-07-04] MEDS: LOTRIMIN 1% CREAM 1 APPLIC TOPICAL ×2 (07:22→20:24)
[2024-07-04] MEDS: PACERONE 200 MG PO (07:22)
[2024-07-04] MEDS: VITAMIN B1 100 MG PO (07:22)
[2024-07-04] MEDS: ENTRESTO 24 MG/26 MG 1 TAB PO ×2 (07:22→20:22)
[2024-07-04] MEDS: LASIX 20 MG PO (07:22)
[2024-07-04] MEDS: THERAGRAN 1 TABLET PO (07:22)
[2024-07-04] MEDS: DELTASONE 30 MG PO (07:22)
[2024-07-04] MEDS: ALDACTONE 12.5 MG PO (07:23)
[2024-07-04] MEDS: COREG 6.25 MG PO ×2 (07:23→20:22)
[2024-07-04] MEDS: FARXIGA 10 MG PO (07:23)
[2024-07-04] MEDS: PROTONIX 40 MG PO (07:23)
[2024-07-04] MEDS: SYMBICORT 80/4.5 MCG INHALER 2 PUFF INH ×2 (07:47→19:50)
[2024-07-04] MEDS: SPIRIVA RESPIMAT 2.5 MCG 2 PUFF INH (07:47)
--- NOTE | 2024-07-04 08:00 | PTCARENOTE ---
pt received from offgoing rn- evy completed with offgoing rn evy 13. pt with left arm flaccid and left leg severely week. decreased sensation to left side. pt oriented, able to make needs known, at bedside. nsr on monitor. ivf infusing through
right picc. pt and educated about plan of care- verbalized understanding. full am care and bed bath provided. pt bs for >500cc urine, per Dr. Guevara insert castillo for retention. castillo inserted without difficulty, bailey urine draining. pt incont of
stool. turned and repositoned. wound care provided. all safety precautions in place, call marquez within reach
--- NOTE | 2024-07-04 10:49 | CON.ONC ---
Impression
Impression
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
Recurrent thrombosis
Presumed septic embolism
Plan
Plan
Evaluation for antiphospholipid antibody and lupus anticoagulant were negative
Evaluate for PNH and LUZ-2 mutation
We will consider IVC filter prophylaxis if patient is to be off of anticoagulation
Agree with holding Lovenox in light of hemorrhagic conversion
Patient History
History of Present Illness
The patient is a 74yo M with PMhx of HTN, Afib, HLD, GERD, COPD, HFrEF s/p ICD, chronic steroids, discharged from here on 07/01 with diagnosis of acute R MCA embolic stroke and R SUE embolic stroke, left hemiplegia, bacteremia with E.faecalis with
concern for endocarditis, found at that time to have portal vein thrombosis and suspected PE, he was started on Lovenox, and thrombophilia work-up for APL was initiated and negative. PICC line was placed for 6 weeks of IV abx (ceftriaxone/Ampicillin
until Jul 29 2024), with plans for chronic suppression due to pacemaker, without initial source of infection found. He was dc'd to acute rehab at [place]. He presents to ED yesterday with concerns for change outpatient CT imaging which performed to
evaluate headache and suggested hemorrhagic conversion of the previous ischemic right MCA CVA. He was taking 90 mg of Lovenox daily which have now been discontinued. He remains on aspirin 81 mg.
Past-Medical/Surgical History
Past Medical History
CAD
Presumed septic emboli
Recurrent thrombosis remote DVT and more recent portal vein thrombosis
COPD
former smoker
sarcoidosis
DVT/PE-patient on Xarelto
daily alcohol use
Paroxysmal A-fib
HTN
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
CHF
Mitral regurgitation, moderate to severe by echo in 12/2014.
GERD
HLD
basal cell skin CA
OA right knee
Past Surgical History: Reports Orthopedic (Right knee arthroscopy, partial medial meniscectomy, medial femoral chondroplasty.) and Other (Mediastinoscopy)
Social History
Tobacco: Former Smoker (quit 2014)
Alcohol: Daily (Patient reports he drinks 1 shot of whiskey 4 times a week)
Drug: None
Personal:
Living: With Family ()
Employment: Retired
Family History
Family History: Other (father-pacemaker/arryhthmia )
Patient Medication
�Medication �Instructions �Recorded �Confirmed �Last Taken �Type
amiodarone 200 mg tablet (Pacerone) 200 mg PO DAILY VTach 01/20/24 07/03/24 07/03/24 History
sacubitril 24 mg-valsartan 26 mg 1 tab PO BID Heart Failure 01/20/24 07/03/24 07/03/24 History
tablet (Entresto)
spironolactone 25 mg tablet 12.5 mg PO DAILY Blood Pressure 01/20/24 07/03/24 07/03/24 History
sulfamethoxazole 400 1 tab PO DAILY Infection 01/20/24 07/03/24 07/03/24 History
mg-trimethoprim 80 mg tablet
(Bactrim)
therapeutic multivitamin 1 tab PO DAILY Supplement 01/20/24 07/03/24 07/03/24 History
acetaminophen 325 mg tablet 650 mg PO Q4HPRN PRN MILD PAIN 06/11/24 07/03/24 07/03/24 History
(Tylenol)
carvedilol 6.25 mg tablet 6.25 mg PO BID Blood Pressure 06/11/24 07/03/24 07/03/24 History
furosemide 20 mg tablet 20 mg PO DAILY Fluid 06/11/24 07/03/24 07/03/24 History
Retention/Swelling
pantoprazole 40 mg tablet,delayed 40 mg PO DAILY Gastrointestinal 06/11/24 07/03/24 07/03/24 History
release Issue
prednisone 20 mg tablet 30 mg PO DAILY ANTI-INFLAMMATION 06/11/24 07/03/24 07/03/24 History
tiotropium bromide 2.5 2 puff inhalation R DAILY 06/11/24 07/03/24 07/03/24 History
mcg/actuation mist for inhalation Lung/Breathing Issues
(Spiriva Respimat)
Ampicillin 2,000 mg 108 mls/hr IV Q4H 07/01/24 07/03/24 07/03/24 08:00 Rx
aspirin 81 mg chewable tablet 81 mg PO DAILY #30 tabs 07/01/24 07/03/24 07/03/24 Rx
atorvastatin 80 mg tablet 80 mg PO QPM #30 tabs 07/01/24 07/03/24 07/02/24 Rx
budesonide-formoterol HFA 80 2 puff inhalation R BID #10 grams 07/01/24 07/03/24 07/03/24 Rx
mcg-4.5 mcg/actuation aerosol
inhaler (Symbicort)
enoxaparin 100 mg/mL subcutaneous 90 mg (0.9 mL) SC Q12H #10 mL 07/01/24 07/03/24 07/03/24 11:00 Rx
syringe
carboxymethylcellulose 0.5 1 drp BOTH EYES Q6HPRN PRN DRY EYES 07/03/24 07/03/24 Unknown History
%-glycerin 0.9 % eye drops
(Refresh Optive)
ceftriaxone 2 gram solution for 2,000 mg IV BID 07/03/24 07/03/24 07/03/24 History
injection
clotrimazole 1 % topical cream 1 applic topical BID BUTTOCKS AND 07/03/24 07/03/24 Unknown History
INGUINAL
dapagliflozin propanediol 10 mg 10 mg PO DAILY 07/03/24 07/03/24 07/03/24 History
tablet (Farxiga)
folic acid 1 mg tablet 1 mg PO DAILY 07/03/24 07/03/24 07/03/24 History
lidocaine 4 % topical patch 3 patch topical DAILY 07/03/24 07/03/24 Unknown History
methyl salicylate 15 %-menthol 10 1 applic topical QIDPRN PRN LOW 01/08/25 01/08/25 01/08/25 History
% topical cream BACK PAIN
tamsulosin 0.4 mg capsule 0.4 mg PO HS 07/03/24 07/03/24 Unknown History
thiamine HCl (vitamin B1) 100 mg 100 mg PO DAILY 07/03/24 07/03/24 07/03/24 History
tablet
Active Medications
Generic Name Dose Route Start Last Admin
Trade Name Freq PRN Reason Stop Dose Admin
Acetaminophen 650 mg 07/03/24 22:11 07/04/24 05:14
Acetaminophen 325 Mg Tablet PO 07/31/24 22:10 650 mg
Q6HPRN PRN Administration
mild pain/ fever>100.5F
Amiodarone HCl 200 mg 07/04/24 08:00 07/04/24 07:22
Amiodarone 200 Mg Tablet PO 08/01/24 07:59 200 mg
DAILY ROMAN Administration
Artificial Tears 1 drops 07/03/24 22:34
Artificial Tears Pf (Refresh) 10 Drop Droperette BOTH EYES 07/31/24 22:33
Q6HPRN PRN
DRY EYES
Atorvastatin Calcium 80 mg 07/04/24 18:00
Atorvastatin (Lipitor) 80 Mg Tablet PO 08/01/24 17:59
QPM ROMAN
Bisacodyl 10 mg 07/03/24 22:11
Bisacodyl 10 Mg Rectal Suppository RECTAL 07/31/24 22:10
[id number] PRN
constipation
Budesonide/Formoterol Fumarate 2 puff 07/03/24 22:11 07/04/24 07:47
Symbicort Inhaler 80/4.5 INH 07/31/24 22:10 2 puff
R BID ROMAN Administration
Protocol
Carvedilol 6.25 mg 07/03/24 22:11 07/04/24 07:23
Carvedilol 6.25 Mg Tablet PO 07/31/24 22:10 6.25 mg
BID ROMAN Administration
Ceftriaxone Sodium 2,000 mg 07/04/24 00:00 07/03/24 23:08
Ceftriaxone 2,000 Mg/20 Ml Vial IV 2,000 mg
Q12H ROMAN Administration
Clotrimazole 1 applic 07/03/24 22:11 07/04/24 07:22
Clotrimazole 1% (Cream) 30 Gram Tube TOPICAL 07/31/24 22:10 1 applic
BID ROMAN Administration
Dapagliflozin 10 mg 07/04/24 08:00 07/04/24 07:23
Dapagliflozin (Farxiga) 10 Mg Tablet PO 08/01/24 07:59 10 mg
DAILY ROMAN Administration
Folic Acid 1 mg 07/04/24 08:00 07/04/24 07:22
Folic Acid 1 Mg Tablet PO 08/01/24 07:59 1 mg
DAILY ROMAN Administration
Furosemide 20 mg 07/04/24 08:00 07/04/24 07:22
Furosemide 20 Mg Tablet PO 08/01/24 07:59 20 mg
DAILY ROMAN Administration
Sodium Chloride 1,000 mls @ 75 mls/hr 07/03/24 22:11 07/03/24 22:31
Nss IV 1,000 mls
.[id number] ROMAN Administration
Ampicillin Sodium 2,000 mg/ 108 mls @ 108 mls/hr 07/04/24 00:00 07/04/24 07:48
Sodium Chloride IV 108 mls
Q4H ROMAN Administration
Lidocaine 3 patch 07/04/24 08:00 07/04/24 07:21
Lidocaine 4% Topical Patch TOPICAL 08/01/24 07:59 3 patch
DAILY ROMAN Administration
Protocol
Multivitamins Therapeutic 1 tablet 07/04/24 08:00 07/04/24 07:22
Multivitamin Tablet PO 08/01/24 07:59 1 tablet
DAILY ROMAN Administration
Pantoprazole Sodium 40 mg 07/04/24 08:00 07/04/24 07:23
Pantoprazole 40 Mg Delayed Release Tablet PO 08/01/24 07:59 40 mg
DAILY ROMAN Administration
Patch Removal 0 patch 07/04/24 20:00
Remove Lidocaine Patch REMOVE 08/01/24 19:59
DAILY@2000 ROMAN
Polyethylene Glycol 17 grams 07/03/24 22:11
Polyethylene Glycol Powder 17 Grams Packet PO 07/31/24 22:10
DAILYPRN PRN
constipation
Prednisone 30 mg 07/04/24 08:00 07/04/24 07:22
Prednisone 10 Mg Tablet PO 08/01/24 07:59 30 mg
DAILY ROMAN Administration
Sacubitril/Valsartan 1 tab 07/03/24 22:11 07/04/24 07:22
Sacubitril 24 Mg/Valsartan 26 Mg (Entresto) Tab PO 07/31/24 22:10 1 tab
BID ROMAN Administration
Senna/Docusate Sodium 1 tablet 07/03/24 22:11
Docusate W/Senna (Naya-Colace) Tablet PO 07/31/24 22:10
BIDPRN PRN
constipation
Sodium Chloride 0 flush 07/03/24 23:00
Sodium Chloride 0.9% (Flush) Syringe IV 07/31/24 22:59
PER PROTOCOL ROMAN
Spironolactone 12.5 mg 07/04/24 08:00 07/04/24 07:23
Spironolactone 12.5 Mg Dose (1/2 Of 25 Mg Tablet) PO 08/01/24 07:59 12.5 mg
DAILY ROMAN Administration
Sterile Water 20 ml 07/04/24 00:00 07/03/24 23:08
Sterile Water For Injection 20 Ml Vial IV 08/01/24 00:00 20 ml
Q12H ROMAN Administration
Tamsulosin HCl 0.4 mg 07/03/24 22:11 07/03/24 23:05
Tamsulosin 0.4 Mg Capsule PO 07/31/24 22:10 0.4 mg
HS ROMAN Administration
Thiamine HCl 100 mg 07/04/24 08:00 07/04/24 07:22
Thiamine 100 Mg Tablet PO 08/01/24 07:59 100 mg
DAILY ROMAN Administration
Tiotropium [place] 2 puff 07/04/24 08:00 07/04/24 07:47
Tiotropium (Spiriva Respimat) 2.5 Mcg Inhaler INH 08/01/24 07:59 2 puff
R DAILY ROMAN Administration
Protocol
Trimethoprim/Sulfamethoxazole 1 tablet 07/04/24 08:00 07/04/24 07:22
Sulfamethoxazole (400 Mg)/Trimethoprim (80 Mg) Tablet PO 1 tablet
DAILY ROMAN Administration
Physical Exam
-
Awake, alert, conversant
Pupils are equal and reactive, EOMI, Left visual and hemineglect
Head : normocephalic atraumatic
Lungs: Without rales or rhonchi
Cardiac: Regular rate
Abdomen: is soft, nondistended nontender
Neuro Left upper Dense left hemiplegia
Full strength in right upper and lower extremity
Extremities: Right mildly edematous
Labs
Lab Results
WBC 8.5 10^3/uL (4.8-10.8) 07/04/24 04:02
RBC 2.77 10^6/uL (4.70-6.10) L 07/04/24 04:02
Hgb 8.3 g/dL (13.0-18.0) L 07/04/24 04:02
Hct 27.3 % (39.0-52.0) L 07/04/24 04:02
MCV 98.6 fL (80.0-94.0) H 07/04/24 04:02
MCH 30.0 pg (27.0-31.0) 07/04/24 04:02
MCHC 30.4 g/dL (33.0-37.0) L 07/04/24 04:02
RDW 19.1 % (11.5-14.5) H 07/04/24 04:02
Plt Count 119 10^3/uL (130-400) L 07/04/24 04:02
MPV 11.7 fL (7.4-10.4) H 07/04/24 04:02
Abs Immat Gran (auto) 0.4 10^3/uL (0-0.05) H 07/04/24 04:02
Absolute Neuts (auto) 7.0 10^3/uL (1.4-6.5) H 07/04/24 04:02
Absolute Lymphs (auto) 0.8 10^3/uL (1.2-3.4) L 07/04/24 04:02
Absolute Monos (auto) 0.3 10^3/uL (0.1-0.6) 07/04/24 04:02
Absolute Eos (auto) 0.1 10^3/uL (0-0.7) 07/04/24 04:02
Absolute Basos (auto) 0.0 10^3/uL (0-0.2) 07/04/24 04:02
Immature Gran % 4.5 % (0-0.5) H 07/04/24 04:02
Neutrophils % 81.9 % (42.2-75.2) H 07/04/24 04:02
Lymphocytes % 9.1 % (20.5-51.1) L 07/04/24 04:02
Monocytes % 3.6 % (1.7-9.3) 07/04/24 04:02
Eosinophils % 0.8 % (0-6) 07/04/24 04:02
Basophils % 0.1 % (0-2) 07/04/24 04:02
Creatinine 1.1 mg/dL (0.7-1.3) 07/04/24 04:03
Vital Signs
Vital Signs
Temp Pulse Resp BP Pulse Ox
98 F 68 14 122/75 97
07/04/24 08:23 07/04/24 09:00 07/04/24 09:00 07/04/24 09:00 07/04/24 09:00
[2024-07-04] MEDS: STERILE WATER FOR INJECTION 20 ML IV (11:33)
[2024-07-04] MEDS: ROCEPHIN 2000 MG IV (11:33)
--- NOTE | 2024-07-04 11:58 | PTCARENOTE ---
pt taken to ct this am, plan of care discussed with Dr. Guevara in rounds. labs sent as per order. neuro assessment unchanged. ivf continue. updated.
--- NOTE | 2024-07-04 12:09 | W.PN.HOSP.TC ---
Today's Communication/Plan
-
monitor in ICU
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
Assessment / Plan
Assessment / Plan
74yo M with PMhx of HTN, Afib, HLD, GERD, COPD, HFmrEF s/p ICD, chronic steroids, came with sudden onset of L hemiparesis, recent acute R MCA embolic stroke and R SUE embolic stroke, bacteremia with E.faecalis treated for for endocarditis, PVT,
PE, DVT brought from [facility] after Head CT done for continued headaches showed hemorrhagic transformation. Lovenox stopped. As per NeuroSx assessment - serial CT head for monitoring in . Received plt transfusion, DDAVP and protamine in ED
A/P:
#hemorrhagic infarct in the right temporoparietal region
#2.7 cm diameter hematoma in the right temporal region
Serial neurochecks, IMU monitoring, hold antiplatelets and AC at least for 1 week, neuroSx followed
strickt BP control
#embolic CVA R MSA and embolic R SUE CVA
#R frontal meningioma 1.3cm
ASA (when possible), statin
Repeat MRI in 1 year, outpatient neuroSx consult
#Bacteremia, concern for endocarditis
cont Abx Ampicillin+Ceftriaxone
recommend outpatient EGD/Colonoscopy
#Possible pulmonary embolism within the visualized right main pulmonary artery
#Non-occlusive acute LLE DVT
#PVT thrombosis
AC on hold
Hematology consult for risk/benefit vs IVC filter
#Two focal splenic infarcts
Thromboembolic?
#Acute urinary retention
now on Marroquin
Urology as outpatient for cystoscopy
#Small left adrenal gland mass, stable, likely an adenoma.
Right adrenal gland mass,
was not present on CT scan in 2008
Continued follow-up is recommended.
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
#Afib, paroxysmal
#COPD not in exacerbation
#Sarcoidosis on chronic steroids
#Alcohol use d/o
cont home meds
THiamine/folate
#Mild thrombocytopenia, reactive
follow CBC
DVT ppx SCDs
Full code
I have spent at least 56min reviewing chart, test results, communication with consultants and direct patient care
Anticipated Discharge: > 48 hours
Subjective/Interval History
-
Date of Service: July 04, 2024
Objective Data
-
Labs:
Laboratory Results
07/04/24 07/04/24
04:02 04:03
WBC 8.5
Hgb 8.3 L
Hct 27.3 L
Plt Count 119 L
Sodium 134 L
Potassium 3.9
Chloride 102
Carbon Dioxide 24
BUN 19
Creatinine 1.1
Glucose 89
Calcium 7.9 L
Total Bilirubin 0.9
AST 26
ALT 35
Alkaline Phosphatase 61
Vital Signs:
Vital Signs
Temp Pulse Resp BP Pulse Ox
98.0 F 62 15 128/64 97
07/04/24 11:49 07/04/24 11:00 07/04/24 11:00 07/04/24 11:00 07/04/24 11:00
I&O
07/03/24 07/04/24 07/05/24
06:59 06:59 06:59
Intake Total 1055 / 1130 666 / 666
Output Total 1000 / 1000 1000 / 1000
Balance 55 / 130 -334 / -334
Review of Systems
-
History Source: Patient
All other systems: Reviewed and negative
Physical Exam
-
General: No Apparent Distress and Comfortable
HEENT: Moist Mucous Membranes
Respiratory: Clear to Auscultation
Cardiac: Regular Rhythm
GI: Soft, Nontender and Nondistended
Musculoskeletal: No Clubbing, No Cyanosis and No Edema
Neuro: Awake, Alert, No Motor Deficits (L hemiparesis) and Facial Droop (R chronic)
Psych: Calm
--- NOTE | 2024-07-04 12:11 | PTCARENOTE ---
per Dr. Rula regalado to complete q2hr neuro checks and advance patient diet.
--- NOTE | 2024-07-04 13:50 | PTOTSP ---
Speech Language Pathology
Pt seen for cognitive-linguistic evaluation via the [place] Cognitive Assessment (MOCA), version 8.3. Pt with an overall score of 20/30 where normal range is 26-30. At least moderate cognitive deficits noted. Version 8.2 was provided on 06/25/24
with score of 21/30. Decreased impulsivity noted this date, although continues to be noted and is significant, but decreased short-term memory noted. Question whether related to fatigue with Q1 hour neuro checks overnight. Perseveration and
difficulty with task switching noted. L neglect also noted. Mild dysarthria also noted.
Pt also seen for clinical bedside swallow evaluation. P.O. trials of regular solids and mildly thick liquids provided. Verbal cueing for slow rate, and pt was able to demonstrate this with solids throughout evaluation. Frequently taking many
consecutive sips of liquids. No oral residue and no overt signs of aspiration.
Recommend:
(1) IDDSI Level 6 (soft/bite-sized) and mildly thick liquids. Will consider upgrade to regular solids once able to consistently demonstrate appropriate rate of intake
(2) Aspiration precautions: sit upright, slow rate, full supervision, ensure oral cavity clear before next bite
(3) Meds whole in puree
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
--- NOTE | 2024-07-04 14:30 | PTCARENOTE ---
ok per dr. benavides to discontinue ivf.
--- NOTE | 2024-07-04 14:43 | CM ---
CM following re: discharge planning.
Discussed in Rounds, reviewed pt's chart, met with pt and family at bedside.
pt is a 74 year old male, admitted with primary dx of hemorrhagic infarct in the right temporoparietal region.
Pt lives with spouse 2SH, 1 step to enter and has been independent with functional ability prior to his first admission to [facility] a few days ago. Pt is admitted from [facility] and a plan is for pt to return back to [facility] when
medically stable.
CM left a message to [facility] therapy manager to coordinate pt's discharge plan.
D/C plan: most likely re-admission to [facility]
CM will follow with discharge plan updates as hospitalization progresses
[2024-07-04] MEDS: NSS IV (15:43)
[2024-07-04] MEDS: LIPITOR 80 MG PO (16:23)
--- NOTE | 2024-07-04 16:32 | PTCARENOTE ---
pt turned and repositioned throughout shift. pt tolerating diet. bed in chair position, at bedside. assessment unchanged.
[2024-07-04] MEDS: FLOMAX 0.4 MG PO (22:35)
[2024-07-04] MEDS: NSS 1000 IV (22:36)
--- NOTE | 2024-07-04 22:55 | PTCARENOTE ---
Handoff report received from off going RN. Stroke assessment completed with off going RN. NIH 13 and unchanged from previous assessment. Left sided weakness/flaccid. AAOx3 with a flat affect and pleasant. Plan of care for the shift reviewed with
the patient. Sinus rhythm with first degree block. SpO2 at 95% on room air. +BS.The patient is incontinent of stool. Full night care completed. Marroquin draining bailey urine. Sheets changed. Medications administered with pudding. Pt's is at the
bedside.
[2024-07-05] VITALS (27 sets, daily range): BP systolic 63–141; BP diastolic 52–76; BMI 30.8
[2024-07-05] MEDS: STERILE WATER FOR INJECTION 20 ML IV ×3 (00:02→23:41)
[2024-07-05] MEDS: ROCEPHIN 2000 MG IV ×3 (00:02→23:41)
[2024-07-05] MEDS: AMPICILLIN 108 MG IV ×7 (00:02→23:41)
--- NOTE | 2024-07-05 00:54 | PTCARENOTE ---
Patient reassessed. No changes. Spouse remains at the bedside. Turns and repositioning continued.
[2024-07-05] MEDS: MELATONIN 5 MG PO ×2 (02:04→22:23)
[2024-07-05 04:09] LABS: % Basophils 0.1 % (0-2); % Eosinophils 0.4 % (0-6); % Immature Granulocytes 3.7 % (0-0.5); % Lymphocytes 9.1 % (20.5-51.1); % Monocytes 3.7 % (1.7-9.3); Absolute Immature Granulocytes 0.3 10^3/uL (0-0.05); Absolute Lymphocytes 0.8 10^3/uL (1.2-3.4); Absolute Monocytes 0.3 10^3/uL (0.1-0.6); Hematocrit 23.1 % (39.0-52.0); Hemoglobin 7.3 g/dL (13.0-18.0); Mean Corp Hgb Conc. 31.6 g/dL (33.0-37.0); Mean Corpuscular Hgb 30.5 pg (27.0-31.0); Mean Corpuscular Volume 96.7 fL (80.0-94.0); Mean Platelet Volume 11.1 fL (7.4-10.4); Nucleated Red Blood Cells % 0.2 % (-); Platelet Count 113 10^3/uL (130-400); Red Blood Cell Count 2.39 10^6/uL (4.70-6.10); Red Cell Dist. Width 19.1 % (11.5-14.5); White Blood Cell Count 8.4 10^3/uL (4.8-10.8)
[2024-07-05 04:32] LABS: ALT (SGPT) 26 U/L (0-50); AST (SGOT) 21 U/L (17-59); Albumin 2.7 g/dl (3.5-5.0); Alkaline Phosphatase 59 U/L (38-126); Blood Urea Nitrogen 20 mg/dl (9-20); Calcium 7.3 mg/dl (8.4-10.2); Carbon Dioxide 26 mmol/L (22-30); Chloride 103 mmol/L (98-107); Estimated Creatinine Clearance 80 ml/min; Glucose 100 mg/dl (70-99); Sodium 136 mmol/L (135-145); Total Bilirubin 0.8 mg/dl (0.2-1.3); Total Protein 4.6 g/dl (6.3-8.2); eGFR > 60.00
--- NOTE | 2024-07-05 07:33 | W.PN.INTV ---
Today's Communication / Plan
Recommendations
IR consult for IVC filter placement
OAC needs to held at least 1 week per Neurosx
agreeable to hospice consult, CM order placed
Await decision making
Updated plan of care with primary team
Assessment
-
Patient is a 74-year-old male with previous history of hypertension, A-fib, COPD, heart failure reduced EF status post ICD, sarcoidosis on chronic pred recently discharged from on 07/01/2024 with diagnosis of acute right MCA and SUE stroke
complicated by E faecalis bacteremia, DVT and PE started on Lovenox, PICC line placed for 6 weeks of IV antibiotics and discharged to acute rehab at [place]. He presents with concerns for intracranial bleeding found on outpatient CT scan which was
ordered due to new complaints of intermittent right-sided headaches for the past week with increasing lethargy and decreased mentation. CT demonstrates new right temporoparietal occipital CVA with 3 cm hemorrhagic conversion. He is currently DNR.
He is admitted to ICU. He has remained hemodynamically stable without pressors.
Acute R temporoparietooccipital CVA with 3cm hemorrhagic conversion 07/03/24
Subacute R MCA and SUE CVA 06/18/24
R sided HAs, lethargy
Subacute LLE DVT 06/18/24
Conditions present prior to admission:
Moderate COPD/centrilobular emphysema (post-BD FEV1: 2.33L / 80% via spirometry from 09/06/2023)
Former smoker quit 2014.
Pulmonary nodule-2 mm right upper lobe stable 2022
NITA.
Obesity.
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
Hypertension.
Hyperlipidemia.
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
PAF.
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
Chronic amiodarone-100 mg daily
Nonischemic CM-EF 35%/ICD.
Diastolic CHF.
CAD-nonocclusive 2014.
Moderate MR.
GERD.
Basal cell skin CA.
Left knee arthroscopy 2010. Mediastinal Skippy. Right knee surgery 2018. Basal cell left ear 2020. Cataract 2021. Melanoma right wrist 2023
Plan
Currently able to speak but has poor insight/memory
CT showing extension of CVA into hemorrhage, repeat stable
Neurosurg following
Currently on q2 checks, can likely decrease intervals per team
Denies pain at this time.
Pain/sedation: PRN
RASS goals: 0
Hemodynamically stable, not requiring pressors.
Cardiac history reviewed--NICM EF 35%, HTN, VT history, CAD, Mod MR
Prior ECHO reviewed
Resume home meds as able
Monitor on telemetry
Oxygen needs: currently on RA
Has active subacute DVT recently diagnosed, would be only a candidate for IVC filter at this point--will consult IR
Cannot resume OAC
Prior history of lung disease: COPD/emphysema/sarcoid, on chronic prednisone, can resume
Supplemental O2 as indicated to maintain sats > 89%
CXR/CT reviewed indicating no acute process
Diet advancement per speech, eval placed
Superintendent Overhead Distribution recommendations
Aspiration precautions, HOB > 30 degrees
GI prophylaxis if indicated
Creat at baseline, no history of renal disease
Void trials
Follow urine output, critical I/Os
Replete electrolytes as needed
No signs/symptoms suspicious for infectious etiology at this time
Observe off antibiotics for now
Follow fever trend, WBC count
Adrenal mass noted, history of repeated clots/CVA--could be underlying malignancy
Heme eval obtained
Not a candidate for OAC, agree with IVC placement/IR consulted
CBC stable, no signs of bleeding or coagulopathy.
DVT prophylaxis as assessed based on risk, including mechanical SCDs
Can transfuse if indicated for Hb <7, plt < 10
INR WNL
No prior h/o diabetes or thyroid disease
Monitor accuchecks PRN/SS coverage if needed
Patient is DNR, discussed case with at bedside about his GOC and he has advanced directives stating he would not want artificial means
She is discussing [facility] patient and her family about GOCs
was interested in home hospice, consult placed
Diagnostic Data
CXR 07/01/24- No active cardiopulmonary disease. The tip of the PICC line is at the cavoatrial junction
Chest x-ray 01/20/2024-bibasilar pneumonia
Chest x-ray 04/26/23-left chest wall defibrillator placed with lead tips in the right atrium and right ventricle������
CT chest. Wcs-zaff-7-2020 -no evidence of pulmonary malignancy. Stable 2.8 cm subpleural lipoma at the posterior left base. Stable large 2 cm pre tracheal lymph node at the left koko. Minimal emphysematous changes left base. Atherosclerosis�������
CT iesrg-lwa-ysyc-03-30-2022- Stability of 2 mm right upper lobe nodule. Stable since 2014. Mild subpleural parenchymal scarring with emphysematous change in the upper lateral aspect of the left lower lobe as well on the lateral basilar portion of
the left lower lobe.�������
CT hajcd-ssb-dfih 04/20/23-mild central lobular emphysema, 2 mm solid subpleural nodule right upper lobe stable.�������
CT chest 04/25/23-no evidence for pulmonary embolism, mild bibasilar segmental atelectasis, mediastinal and bilateral hilar lymphadenopathy, some of which are partially calcified. These are unchanged compared to recent CT chest 04/20/23 and only
minimally increased compared to 2015, prominence of main pulmonary trunk suggesting pulmonary artery hypertension, 1.3 cm left thyroid nodule unchanged 2015
CTA Chest 01-26-2024- No evidence of pulmonary embolus; Findings suggesting pneumonia. This is suggestive of Covid 19 type pneumonia. Moderate. New from 04/25/2023; findings suggesting mild emphysematous disease. Enlarged incidental right probable
adrenal mass.
CT AP 06/17/24- Concern raised for pulmonary embolism within the visualized right main pulmonary artery. Parenchymal opacities within both lower lungs, most likely atelectasis, although pneumonia is also possible. Stranding of the fat surrounding
the gallbladder, raising concern for acute cholecystitis, and please correlate clinically. As described, poor opacification of the portal vein, but findings raise concern for thrombosis involving the right portal vein. Two focal splenic infarcts.
Splenomegaly. Small left adrenal gland mass, stable, likely an adenoma. Right adrenal gland mass, which is not definitively characterized, and was not present on CT scan in 2008. Continued follow-up is recommended.
CT Head 07/03/24- 1.). Subacute right temporoparietal occipital infarct with 3 cm internal area of subacute parenchymal hemorrhage not significantly changed when compared with examination earlier today
2). Subacute Nonhemorrhagic pericallosal branch right anterior cerebral artery nonhemorrhagic infarct
3). Moderate diffuse cortical and cerebellar atrophy
06/18/24- 1). There is subacute infarct in the distribution of the pericallosal branch of the right anterior cerebral artery with associated petechial hemorrhage similar to that seen on the prior study
2). There is 10 cm subacute right middle cerebral artery infarct involving portions of the right temporal, parietal and occipital lobes with associated petechial hemorrhage at its anterior margin similar to that seen on the 06/14/2024 examination.
3). Both infarcts are associated with mass effect with effacement of the overlying sulci and approximately 2 mm shift of midline structures to the left
PET scan-[facility]-05/16/23-increased metabolic activity at the left cardiac border/left ventricle, indicating active disease-sarcoidosis, which correlates with a cardiac MRI findings, hilar and mediastinal lymphadenopathy with increased
metabolic activity indicates active disease as well, cardiac SUV ranging 2.8-3/3, mediastinal, hilar SUV ranging 2.3-3.16 and right hilar lymph node, SUV 3.06, no abnormal pulmonary uptake.
Lower extremity ultrasound 01/03/2024-very small subcutaneous edema right ankle, severe tendinosis right peroneal longus and brevis tendons
Echocardiogram-2016- EF normalized from 20 to 55 %�������
Echocardiogram 04/25/23-EF 35-40%, mild global hypokinesis, PA systolic 26-31, compared to 2022, LV is dilated and increased from 5.8-7.2 cm and the EF was decreased from 45% to 35-40%�������
Cardiac MRI 04/26/23-severe thinning akinesis and transmural enhancement of the inferolateral, inferior whitten consistent with chronic myocardial infarction, global left ventricular hypokinesis�������
Cardiac catheterization 04/25/23-nonobstructive coronary artery disease, dilated cardiomyopathy with severe posterior basilar hypokinesis and global hypokinesis.
HST 07/03/23-AHI-10, desaturation josselin 84%, 5.3 minutes spent less than 80% saturation.
Spirometry-2014- FEV1 2.5, 3-73%,FVC 3.61,83 9 BD response Ratio 70�������
PFT-2018- FEV1 3.1, 1-99%,FVC 4.66,110 TLC 103 DLCO 68�������
JRP-7-34-2020- FEV1 3.02-100%, FVC 4.44, 108 ratio 63 FEF 25-75 1.11, 48 33 BD response�������
CLU-7-2509-22-2022- PFT- FEV1 2.73-92%,FVC 4.60, 113, ratio 57 TLC 102 DLCO 85�������
Spirometry 06/12/23-FEV1 2.48-85%, FVC 3.36-83%, no significant BD response. Mild restriction.�������
PFT 07/25/23-FEV1 2.57-87%, FVC 3.84-95%, no significant BD response, TLC 92%, RV 70%, DLCO 69%, DLCO/VA 77%. Mild obstruction and mild reduction in diffusing capacity.�������
Spirometry 09/06/23-FEV1 2.27-70%, FVC 3.93-98%, no significant BD response. Mild obstruction
-----
Total time spent on this consultation/encounter __51__ minutes which includes review of history, physical exam, medications, laboratory data, personal review of imaging, extensive review of outpatient records, discussion with care team and
respiratory therapy.
Subjective Dataa
Subjective Data
Date of Service:
Date of Service: July 05, 2024
Chief Complaint: Program Coordinator Follow Up
Subjective:
No acute events ON, at bedside
No new complaints
Objective Data
Data Reviewed
Vital Signs / I&O / Oxygen:
Vital Signs
Temp Pulse Resp BP Pulse Ox
98.3 F 62 13 111/57 96
07/05/24 03:32 07/05/24 07:00 07/05/24 07:00 07/05/24 07:00 07/05/24 07:00
Intake and Output
07/04/24 07/05/24 07/06/24
06:59 06:59 06:59
Intake Total 1055 / 1130 1341 / 1341
Output Total 1000 / 1000 1999 / 1999
Balance 55 / 130 -659 / -659
SaO2 96
Nasal Cannula flow liters per 2
minute
Physical Exam
General: Comfortable and Other (NAD)
HEENT: Normocephalic, Anicteric and Moist Mucous Membranes
Cardiovascular: S1-S2 and Regular Rhythm
Respiratory: Clear and Non-Labored Respirations
GI: Soft, Non Distended and Non Tender
Neurology: Awake, Alert and Other (overall weak, repetitive questions, poor memory)
Skin: Warm, Dry and Good Color
Labs/Micro/Reports
Lab Data
07/05/24 04:01
[2024-07-05] MEDS: SPIRIVA RESPIMAT 2.5 MCG 2 PUFF INH (07:40)
[2024-07-05] MEDS: SYMBICORT 80/4.5 MCG INHALER 2 PUFF INH ×2 (07:41→23:12)
[2024-07-05] MEDS: LIDOCAINE 4% PATCH 3 PATCH TOPICAL (08:16)
[2024-07-05] MEDS: LOTRIMIN 1% CREAM 1 APPLIC TOPICAL ×2 (08:17→19:32)
[2024-07-05] MEDS: ENTRESTO 24 MG/26 MG 1 TAB PO ×2 (08:18→19:31)
[2024-07-05] MEDS: BACTRIM 400 MG/80 MG 1 TABLET PO (08:18)
[2024-07-05] MEDS: PROTONIX 40 MG PO (08:18)
[2024-07-05] MEDS: VITAMIN B1 100 MG PO (08:18)
[2024-07-05] MEDS: ALDACTONE 12.5 MG PO (08:18)
[2024-07-05] MEDS: FARXIGA 10 MG PO (08:18)
[2024-07-05] MEDS: DELTASONE 30 MG PO (08:18)
[2024-07-05] MEDS: THERAGRAN 1 TABLET PO (08:19)
[2024-07-05] MEDS: COREG 6.25 MG PO ×2 (08:19→19:31)
[2024-07-05] MEDS: PACERONE 200 MG PO (08:19)
[2024-07-05] MEDS: LASIX 20 MG PO (08:19)
[2024-07-05] MEDS: FOLVITE 1 MG PO (08:20)
--- NOTE | 2024-07-05 08:54 | W.PN.ONC2 ---
Today's Communication / Plan
-
daily CBC
f/u neurosurg, AC on hold
f/u IR for IVC
f/u anemia eval
Impression
Impression
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
Multiple areas of thrombosis of indeterminate age including spleen, portal vein and pulmonary artery. 06/18 US LLE Nonocclusive DVT.
Presumed septic embolism and also with Hx PE 1999
APLS panel negative
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
Sarcoidosis, Immunosuppression on steroids and PJP prophylaxis
HFrEF
right adrenal gland mass. left adrenal adenoma
Anemia likely multifactorial with frequent labs since 06/11 when initially hospitalized, infection, abx, and now hemorrhagic conversion of CVA
Plan
Plan
Anticoagulation on hold for hemorrhagic conversion, defer to neurosurgery if/when anticoagulation can be resumed
Would not consider DOAC failure in setting of bacteremia and presumed septic emboli
Repeat CT ab/pelvis 3-6 months for continued right adrenal mass surveillance
abx per ID
f/u LUZ-2 mutation, consider PNH evaluation
f/u heme stool, iron studies, b12, folate, retic, LDH
f/u IR consult for IVC filter
f/u neurosurgery consult
Subjective/Objective
Subjective
no new complaints
Vital Signs:
Vital Signs
Temp Pulse Resp BP Pulse Ox
98.1 F 71 18 111/57 95
07/05/24 07:38 07/05/24 07:46 07/05/24 07:46 07/05/24 07:00 07/05/24 07:46
Lab Results:
Laboratory Data
WBC 8.4 10^3/uL (4.8-10.8) 07/05/24 04:01
Hgb 7.3 g/dL (13.0-18.0) L 07/05/24 04:01
Plt Count 113 10^3/uL (130-400) L 07/05/24 04:01
PT 14.0 Sec (11.4-14.6) 07/03/24 13:30
INR 1.03 07/03/24 13:30
APTT 38.0 Sec (23.4-35.0) H 07/03/24 13:30
eGFR > 60.00 07/05/24 04:01
Physical Exam
Awake, alert, conversant
Head : normocephalic atraumatic
Lungs: unlabored
Cardiac: Regular rate
Abdomen: soft, nondistended nontender
Neuro left hemiplegia
--- NOTE | 2024-07-05 09:36 | PTCARENOTE ---
pt received from previous rn, donnax3, on room air, nsr on monitor. at bedside. pt with [facility] 12- see flowsheet for further detail. left side remains flaccid. pt with no complaints at this time. turned and repositioned, am care provided. all safety
precautions in place, call marquez within reach. pt and verbalized understanding to education and plan of care.
--- NOTE | 2024-07-05 10:10 | PN.NS ---
Subjective
-
spoke with patient and , going for IVC filter today, leaning toward hospice
no events or changes in neurological status
Physical Exam
-
Exam:
Awake, alert, oriented x3
speech is clear and conversant, participates in discussion
EOMI
left dense hemiparesis
full strength RUE/RLE, +commands on right
Breathing nonlabored
Head CT:
FINDINGS: Moderate cerebral atrophy. No midline shift. 3.0 x 1.9 cm low-attenuation region in the anteromedial right frontal lobe. This is consistent with subacute SUE territory infarct. This is unchanged. In the posterior right temporal lobe and
adjacent portion of right parietal lobe, there is ill-defined region of mixed low/high attenuation, consistent with infarct. Finding measures 9.1 x 3.5 cm. It is similar to the prior study. The high attenuation material represents hemorrhage. The
hemorrhagic component is most pronounced anteriorly, where it measures 2.7 x 1.8 cm (previously 2.8 x 1.7 cm). Small amount of hemorrhage is also noted in the right parietal cortex; this is also unchanged.
There is partial effacement of the right frontal horn, unchanged. There is sulcal effacement in the posterior right temporal lobe and adjacent right parietal lobe. This is unchanged.
Basilar cisterns are patent. No acute skull fracture. Visualized paranasal sinuses are clear
IMPRESSION:
Redemonstration of hemorrhagic infarct in the right temporoparietal region. This is without significant change. This includes a 2.7 cm diameter hematoma in the right temporal region. There is local mass effect in the form of sulcal effacement. There
is also partial effacement of the right frontal horn.
Nonhemorrhagic subacute right anterior cerebral artery territory infarct. This is unchanged. This partially effaces the right frontal horn
No midline shift
Moderate cerebral atrophy again noted
Problems
-
Problem Status Onset Code
Intracranial hemorrhage I62.9
Assessment / Plan
-
This is a 74-year-old gentleman with multiple medical comorbidities, including pulmonary emboli, multiple CVAs on therapeutic anticoagulation, pulmonary emboli, portal vein thrombosis, DVT, sarcoidosis, on chronic steroids, bacteremia with
endocarditis on therapeutic Lovenox, recent right MCA stroke, SUE stroke, now with hemorrhagic conversion.
--repeat head CT x2 reviewed, stable area of hemorrhage
--normotension, keep SBP <150
--ok for neuro checks Q4
--ok for dvt prophylaxis
--ok to advance diet as tolerated
--if determined necessary, may resume anticoagulation in one week from the start of hemorrhage on 07/10/24 -obtain a head CT one week following the start of AC on 07/17/24 and follow up in our office for review
--if hospice is decided and anticoagulation is not restarted, no need for further imaging or follow up
--this plan was discussed with Patient and at the bedside
--discussed with Dr. Nicole
--will sign off
Patient can go home per my specialty: Today
Today's Communication
-
spoke with and patient
--- NOTE | 2024-07-05 10:12 | PN.CDI ---
CDI
- -
CDI:
Physician Documentation Request
Admit Date: 07/03/24 19:15
Dear Doctor Prakash,
Clinical Indicators:
The diagnosis of edema/mass effect was included in the signed Head CT.
07/[address], 'There is new intraparenchymal hemorrhage in the right temporal lobe measuring approximately 3.3 x 1.7 cm...There is mild surrounding edema. There is adjacent sulcal effacement consistent with mass effect.'
07/03 H & P, '...intracranial bleeding found on outpatient CT scan ( ordered due to intermittent right-sided headaches for the past week, more lethargy, speaking less than usual, and headache behind his right eye).'
Neuro checks q 1h, neurosurgery consult ordered.
Please indicate in your progress notes if you are in agreement that the above diagnosis is valid for this patient:
Cerebral edema is a valid diagnosis (Please include it in your progress notes)
Cerebral edema is not a valid diagnosis for this patient
Other
Use of terms such as suspected, likely, concern for, or probable are acceptable for a diagnosis that is being evaluated, monitored or treated as if it exists and can be coded in the inpatient setting, when documented at the time of discharge.
Thank you,
Kim Lewis RN BSN
CDI Specialist
available via tiger text
Please use your independent medical judgment in providing your response.
--- NOTE | 2024-07-05 10:21 | PN.CDI ---
CDI
- -
CDI:
Physician Documentation Request
Admit Date: 07/03/24 19:15
Dear Doctor Prakash,
Clinical Indicators:
Patient admitted with hemorrhagic infarct in the right temporoparietal region.
07/03 H & P, 'Bacteremia with concern for endocarditis: continue ampicillin 2 gm IV Q 4 h and IV ceftriaxone 2 gram daily through 07/29/2024 per ID Then suppressive treatment with Amoxicillin per ID...-Persistent leukocytosis.'
Please clarify which of the following accurately represents the acuity of the possible endocarditis:
Acute Endocarditis
Subacute Endocarditis
Chronic Endocarditis
Other
Use of terms such as suspected, likely, concern for, or probable (associated with a specific diagnosis that is being evaluated, monitored, or treated as if it exists) are acceptable and can be coded in the inpatient setting, when documented at the
time of discharge.
Thank you,
Kim Lewis RN BSN
CDI Specialist
available via tiger text
Please use your independent medical judgment in providing your response.
[2024-07-05 10:25] LABS: Hematocrit 25.6 % (39.0-52.0); Hemoglobin 7.9 g/dL (13.0-18.0); Reticulocyte Count 7.4 % (0.4-2.8)
--- NOTE | 2024-07-05 10:35 | W.PN.HOSP.TC ---
Today's Communication/Plan
-
As per Human Resources Team Member - IRAD for IVC filter and hospice consult
Follow serial H&H
Anemia W/U
check stool for occult blood
BID IV PPI
Assessment / Plan
Assessment / Plan
74yo M with PMhx of HTN, Afib, HLD, GERD, COPD, HFmrEF s/p ICD, chronic steroids, came with sudden onset of L hemiparesis, recent acute R MCA embolic stroke and R SUE embolic stroke, bacteremia with E.faecalis treated for for endocarditis, PVT,
[facility] for continued headaches showed hemorrhagic transformation. Lovenox stopped. As per NeuroSx assessment - serial CT head for monitoring in DH. Received plt transfusion, DDAVP and protamine in ED. Also
developed worsening anemia. Pulmonology and hematology suggested IVC filter. would like to take patient home with hospice, since multiple comorbidities with limited intervention and poor prognosis
A/P:
#hemorrhagic infarct in the right temporoparietal region
#2.7 cm diameter hematoma in the right temporal region
Serial neurochecks, IMU monitoring, hold antiplatelets and AC at least for 1 week, neuroSx followed
strict BP control
#Anemia, acute on chronic
brown suarez stool as per chart on the day prior
bedbound and chronic prednisone are risk factors
High risk for invasive procedure - agreed with patient ad bedside, will hold off GI consult
PPI IV BIDserial H&H and transfuse as agreeable
Anemia w/u
FOBT
#embolic CVA R MSA and embolic R SUE CVA
#R frontal meningioma 1.3cm
ASA (when possible), statin
Repeat MRI in 1 year, outpatient neuroSx consult
#Bacteremia, concern for endocarditis
cont Abx Ampicillin+Ceftriaxone
recommend outpatient EGD/Colonoscopy
#Possible pulmonary embolism within the visualized right main pulmonary artery
#Non-occlusive acute LLE DVT
#PVT thrombosis
AC on hold for at least a week
Hematology/Pulm advised IVC filter to be placed by IRAD. Explained to that it will not protect from worsening pulmonary embolism or de-alida pulmonary embolus as well as from PVT worsening
#Two focal splenic infarcts
Thromboembolic?
#Acute urinary retention
now on Marroquin
Urology as outpatient for cystoscopy
#Small left adrenal gland mass, stable, likely an adenoma.
Right adrenal gland mass,
was not present on CT scan in 2008
Continued follow-up is recommended.
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
#Afib, paroxysmal
#COPD not in exacerbation
#Sarcoidosis on chronic steroids
#Alcohol use d/o
cont home meds
THiamine/folate
#Mild thrombocytopenia, reactive
follow CBC
DVT ppx SCDs
Full code
I have spent at least 56min reviewing chart, test results, communication with consultants and direct patient care
Anticipated Discharge: > 48 hours
Subjective/Interval History
-
Date of Service: July 05, 2024
Objective Data
-
Labs:
Laboratory Results
07/05/24 07/05/24 07/05/24
04:01 10:15 18:00
WBC 8.4
Hgb 7.3 L 7.9 L Pending
Hct 23.1 L 25.6 L Pending
Plt Count 113 L
Sodium 136
Potassium 4.0
Chloride 103
Carbon Dioxide 26
BUN 20
Creatinine 0.9
Glucose 100 H
Calcium 7.3 L
Total Bilirubin 0.8
AST 21
ALT 26
Alkaline Phosphatase 59
Vital Signs:
Vital Signs
Temp Pulse Resp BP Pulse Ox
98.1 F 68 19 126/70 96
07/05/24 07:38 07/05/24 09:00 07/05/24 09:00 07/05/24 09:00 07/05/24 09:00
I&O
07/04/24 07/05/24 07/06/24
06:59 06:59 06:59
Intake Total 1055 / 1130 1341 / 1341 108 / 108
Output Total 1000 / 1000 1999 / 1999 100 / 100
Balance 55 / 130 -659 / -659
Review of Systems
-
History Source: Patient and Family
Physical Exam
-
General: No Apparent Distress
Cardiac: Regular Rhythm
Neuro: Awake, Alert, Oriented, AO x 3, Slurred Speech and Other (L hemiparesis)
Psych: Calm
[2024-07-05 10:41] LABS: Iron 80 ug/dl (49-181); LDH 251 U/L (120-246)
[2024-07-05 10:50] LABS: Percent Saturation 40 % (20-50); Total Iron Binding Capacity 196 ug/dl (261-462)
--- NOTE | 2024-07-05 11:06 | PTCARENOTE ---
plan of care discussed with Tara Arenas neurosurgery network diagnostic support specialist- ordered q4hr neurochecks.
[2024-07-05 11:42] LABS: Folate > 20.0 ng/ml (2.76-20); Vitamin B12 634 pg/ml (239-931)
--- NOTE | 2024-07-05 13:09 | CM ---
CM following re: discharge planning.
Reviewed pt's chart, met with pt and pt's spouse Corie at bedside.
Hospice consult noted. CM discussed it with the pt and his spouse at hospice requested. A referral to hospice made.
Per patient liaison, pt's spouse requested more hours of [employer] services and pt's spouse requested different hospice provider.
CM discussed it with the pt and his spouse, a list of hospice vendors provided, [facility]. A referral to [facility] made.
Pt's spouse stated she and the pt do not have children and she is the only one who will help the pt during his last days of life. Emotional support offered and provided. pt's spouse stated she has a sister and her sister will help.
D/C plan: home with [facility].
CM will follow to assist pt with discharge home with [facility].
--- NOTE | 2024-07-05 13:14 | HOSPNOTE ---
Met with spouse and discussed hospice and the philosophy. The patient and spouse have no children so they are seeking a hospice agency that can give the family aide services 5 days a week for personal care. I spoke with CM and a referral will be
placed with [facility]. The patient is having an IVC filter placed this afternoon and then will be going home with hospice services within the next few days. We will continue to follow if needed.
--- NOTE | 2024-07-05 14:24 | PTCARENOTE ---
pt back frm IR Right IJ with bandaid c/d/i. neuro assessment unchanged. at bedside. incont. care provided, turned and repositioned.
[2024-07-05] MEDS: LIPITOR 80 MG PO (17:54)
[2024-07-05 18:18] LABS: Hematocrit 26.1 % (39.0-52.0); Hemoglobin 8.2 g/dL (13.0-18.0)
[2024-07-05] MEDS: NSS (PRESERVATIVE FREE) 10 ML IV (19:31)
[2024-07-05] MEDS: PROTONIX IV 40 MG IV (19:32)
--- NOTE | 2024-07-05 19:41 | PTCARENOTE ---
% on room air.Handoff report received from off going RN. Patient received in bed AAOX3 and able to make his needs known. [facility] No reports of pain at this time. Plan of care for the shift reviewed with the patient. . Left sided flaccidity remains.
Sinus rhythm on the monitor. Afebrile. SpO2 at 96% on room air. Assisted the patient with feeding him his custard. PIV. Marroquin catheter is draining yellow urine. Patient turned and repositioned. Bed in the lowest position. Call marquez and personal
belonging are within reach.
[2024-07-05] MEDS: FLOMAX 0.4 MG PO (22:23)
[2024-07-06] VITALS (12 sets, daily range): BP systolic 108–133; BP diastolic 60–73; BMI 30.7
[2024-07-06] MEDS: AMPICILLIN 108 MG IV ×5 (03:57→20:15)
[2024-07-06 04:18] LABS: Hematocrit 23.9 % (39.0-52.0); Hemoglobin 7.6 g/dL (13.0-18.0); Mean Corp Hgb Conc. 31.8 g/dL (33.0-37.0); Mean Corpuscular Hgb 30.5 pg (27.0-31.0); Mean Platelet Volume 11.4 fL (7.4-10.4); Platelet Count 107 10^3/uL (130-400); Red Blood Cell Count 2.49 10^6/uL (4.70-6.10); Red Cell Dist. Width 18.9 % (11.5-14.5); White Blood Cell Count 6.9 10^3/uL (4.8-10.8)
[2024-07-06 04:35] LABS: Blood Urea Nitrogen 15 mg/dl (9-20); Calcium 7.7 mg/dl (8.4-10.2); Carbon Dioxide 24 mmol/L (22-30); Chloride 103 mmol/L (98-107); Estimated Creatinine Clearance 80 ml/min; Glucose 88 mg/dl (70-99); Sodium 134 mmol/L (135-145); eGFR > 60.00
--- NOTE | 2024-07-06 07:23 | W.PN.INTV ---
Today's Communication / Plan
Recommendations
s/p filter placement, doing well--off OAC x 1 week--i reviewed potential removal as OP if wishes to resume OAC
hospice consult placed, agreed on plan to discharge home on hospice
cm following for program placement
has declined [facility]
discharge planning per team pending evals, we will sign off at this time
please call with questions
Assessment
-
Patient is a 74-year-old male with previous history of hypertension, A-fib, COPD, heart failure reduced EF status post ICD, sarcoidosis on chronic pred recently discharged from on 07/01/2024 with diagnosis of acute right MCA and SUE stroke
complicated by E faecalis bacteremia, DVT and PE started on Lovenox, PICC line placed for 6 weeks of IV antibiotics and discharged to acute rehab at [place]. He presents with concerns for intracranial bleeding found on outpatient CT scan which was
ordered due to new complaints of intermittent right-sided headaches for the past week with increasing lethargy and decreased mentation. CT demonstrates new right temporoparietal occipital CVA with 3 cm hemorrhagic conversion. He is currently DNR.
He is admitted to ICU. He has remained hemodynamically stable without pressors.
Acute R temporoparietooccipital CVA with 3cm hemorrhagic conversion 07/03/24
Subacute R MCA and SUE CVA 06/18/24
R sided HAs, lethargy
Subacute LLE DVT 06/18/24 off OAC s/p IVC filter 07/05/24
Conditions present prior to admission:
Moderate COPD/centrilobular emphysema (post-BD FEV1: 2.33L / 80% via spirometry from 09/06/2023)
Former smoker quit 2014.
Pulmonary nodule-2 mm right upper lobe stable 2022
NITA.
Obesity.
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
Hypertension.
Hyperlipidemia.
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
PAF.
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
Chronic amiodarone-100 mg daily
Nonischemic CM-EF 35%/ICD.
Diastolic CHF.
CAD-nonocclusive 2014.
Moderate MR.
GERD.
Basal cell skin CA.
Left knee arthroscopy 2010. Mediastinal Skippy. Right knee surgery 2017. Basal cell left ear 2020. Cataract 2021. Melanoma right wrist 2023
Plan
Currently able to speak but has poor insight/memory
CT showing extension of CVA into hemorrhage, repeat stable
Neurosurg following
Currently on q2 checks, can likely decrease intervals per team
Denies pain at this time.
Pain/sedation: PRN
RASS goals: 0
Hemodynamically stable, not requiring pressors.
Cardiac history reviewed--NICM EF 35%, HTN, VT history, CAD, Mod MR
Prior ECHO reviewed
Resume home meds as able
Monitor on telemetry
Oxygen needs: currently on RA
Has active subacute DVT recently diagnosed, not able to complete OAC
s/p IVC filter by IR 07/05/24- tolerated well
Cannot resume OAC x 1 week per surg
Prior history of lung disease: COPD/emphysema/sarcoid, on chronic prednisone, can resume
Supplemental O2 as indicated to maintain sats > 89%
CXR/CT reviewed indicating no acute process
Diet advancement per speech, eval placed
Advertising Specialist recommendations
Aspiration precautions, HOB > 30 degrees
GI prophylaxis if indicated
Creat at baseline, no history of renal disease
Void trials
Follow urine output, critical I/Os
Replete electrolytes as needed
No signs/symptoms suspicious for infectious etiology at this time
Observe off antibiotics for now
Follow fever trend, WBC count
Adrenal mass noted, history of repeated clots/CVA--could be underlying malignancy
Heme eval obtained
Not a candidate for OAC, agree with IVC placement/IR consulted
CBC stable, no signs of bleeding or coagulopathy.
DVT prophylaxis as assessed based on risk, including mechanical SCDs
Can transfuse if indicated for Hb <7, plt < 10
INR WNL
No prior h/o diabetes or thyroid disease
Monitor accuchecks PRN/SS coverage if needed
Patient is DNR, discussed case with at bedside about his GOC and he has advanced directives stating he would not want artificial means
She is discussing [facility] patient and her family about GOCs
was interested in home hospice, consult placed--will plan to discharge once agreeable to program
Diagnostic Data
CXR 07/01/24- No active cardiopulmonary disease. The tip of the PICC line is at the cavoatrial junction
Chest x-ray 01/20/2024-bibasilar pneumonia
Chest x-ray 04/26/23-left chest wall defibrillator placed with lead tips in the right atrium and right ventricle������
CT chest. Rcw-txiy-1-2020 -no evidence of pulmonary malignancy. Stable 2.8 cm subpleural lipoma at the posterior left base. Stable large 2 cm pre tracheal lymph node at the left koko. Minimal emphysematous changes left base. Atherosclerosis�������
CT hzhdd-hli-mkgc-03-30-2022- Stability of 2 mm right upper lobe nodule. Stable since 2014. Mild subpleural parenchymal scarring with emphysematous change in the upper lateral aspect of the left lower lobe as well on the lateral basilar portion of
the left lower lobe.�������
CT qulei-nvw-crlp 04/20/23-mild central lobular emphysema, 2 mm solid subpleural nodule right upper lobe stable.�������
CT chest 04/25/23-no evidence for pulmonary embolism, mild bibasilar segmental atelectasis, mediastinal and bilateral hilar lymphadenopathy, some of which are partially calcified. These are unchanged compared to recent CT chest 04/20/23 and only
minimally increased compared to 2014, prominence of main pulmonary trunk suggesting pulmonary artery hypertension, 1.3 cm left thyroid nodule unchanged 2014
CTA Chest 01-26-2024- No evidence of pulmonary embolus; Findings suggesting pneumonia. This is suggestive of Covid 19 type pneumonia. Moderate. New from 04/25/2023; findings suggesting mild emphysematous disease. Enlarged incidental right probable
adrenal mass.
CT AP 06/17/24- Concern raised for pulmonary embolism within the visualized right main pulmonary artery. Parenchymal opacities within both lower lungs, most likely atelectasis, although pneumonia is also possible. Stranding of the fat surrounding
the gallbladder, raising concern for acute cholecystitis, and please correlate clinically. As described, poor opacification of the portal vein, but findings raise concern for thrombosis involving the right portal vein. Two focal splenic infarcts.
Splenomegaly. Small left adrenal gland mass, stable, likely an adenoma. Right adrenal gland mass, which is not definitively characterized, and was not present on CT scan in 2008. Continued follow-up is recommended.
CT Head 07/03/24- 1.). Subacute right temporoparietal occipital infarct with 3 cm internal area of subacute parenchymal hemorrhage not significantly changed when compared with examination earlier today
2). Subacute Nonhemorrhagic pericallosal branch right anterior cerebral artery nonhemorrhagic infarct
3). Moderate diffuse cortical and cerebellar atrophy
06/18/24- 1). There is subacute infarct in the distribution of the pericallosal branch of the right anterior cerebral artery with associated petechial hemorrhage similar to that seen on the prior study
2). There is 10 cm subacute right middle cerebral artery infarct involving portions of the right temporal, parietal and occipital lobes with associated petechial hemorrhage at its anterior margin similar to that seen on the 06/14/2024 examination.
3). Both infarcts are associated with mass effect with effacement of the overlying sulci and approximately 2 mm shift of midline structures to the left
PET scan-[facility]-05/16/23-increased metabolic activity at the left cardiac border/left ventricle, indicating active disease-sarcoidosis, which correlates with a cardiac MRI findings, hilar and mediastinal lymphadenopathy with increased
metabolic activity indicates active disease as well, cardiac SUV ranging 2.8-3/3, mediastinal, hilar SUV ranging 2.3-3.16 and right hilar lymph node, SUV 3.06, no abnormal pulmonary uptake.
Lower extremity ultrasound 01/03/2024-very small subcutaneous edema right ankle, severe tendinosis right peroneal longus and brevis tendons
Echocardiogram-2016- EF normalized from 20 to 55 %�������
Echocardiogram 04/25/23-EF 35-40%, mild global hypokinesis, PA systolic 26-31, compared to 2022, LV is dilated and increased from 5.8-7.2 cm and the EF was decreased from 45% to 35-40%�������
Cardiac MRI 04/26/23-severe thinning akinesis and transmural enhancement of the inferolateral, inferior whitten consistent with chronic myocardial infarction, global left ventricular hypokinesis�������
Cardiac catheterization 04/25/23-nonobstructive coronary artery disease, dilated cardiomyopathy with severe posterior basilar hypokinesis and global hypokinesis.
HST 07/03/23-AHI-10, desaturation josselin 84%, 5.3 minutes spent less than 80% saturation.
Spirometry-2014- FEV1 2.5, 3-73%,FVC 3.61,83 9 BD response Ratio 70�������
PFT-2018- FEV1 3.1, 1-99%,FVC 4.66,110 TLC 103 DLCO 68�������
XEJ-4-18-2020- FEV1 3.02-100%, FVC 4.44, 108 ratio 63 FEF 25-75 1.11, 48 33 BD response�������
ULR-5-66-2022- PFT- FEV1 2.73-92%,FVC 4.60, 113, ratio 57 TLC 102 DLCO 85�������
Spirometry 06/12/23-FEV1 2.48-85%, FVC 3.36-83%, no significant BD response. Mild restriction.�������
PFT 07/25/23-FEV1 2.57-87%, FVC 3.84-95%, no significant BD response, TLC 92%, RV 70%, DLCO 69%, DLCO/VA 77%. Mild obstruction and mild reduction in diffusing capacity.�������
Spirometry 09/06/23-FEV1 2.27-70%, FVC 3.93-98%, no significant BD response. Mild obstruction
-----
Total time spent on this consultation/encounter __51__ minutes which includes review of history, physical exam, medications, laboratory data, personal review of imaging, extensive review of outpatient records, discussion with care team and
respiratory therapy.
Subjective Dataa
Subjective Data
Date of Service:
Date of Service: July 06, 2024
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
Subjective:
No new events, stable on RA
s/p filter, no complications
Objective Data
Data Reviewed
Vital Signs / I&O / Oxygen:
Vital Signs
Temp Pulse Resp BP Pulse Ox
98.0 F 60 14 132/63 93
07/06/24 07:00 07/06/24 07:00 07/06/24 07:00 07/06/24 06:00 07/06/24 07:00
Intake and Output
07/05/24 07/06/24 07/07/24
06:59 06:59 06:59
Intake Total 1341 / 1341 772 / 772
Output Total 1999 / 1999 1650 / 1650
Balance -659 / -659 -878 / -878
SaO2 93
Nasal Cannula flow liters per 2
minute
Physical Exam
General: Comfortable and Other (NAD)
HEENT: Normocephalic, Anicteric and Moist Mucous Membranes
Cardiovascular: S1-S2 and Regular Rhythm
Respiratory: Clear and Non-Labored Respirations
GI: Soft, Non Distended and Non Tender
Neurology: Awake, Alert and Other (overall weak, repetitive questions, poor memory)
Skin: Warm, Dry and Good Color
Labs/Micro/Reports
Lab Data
07/06/24 04:01
07/06/24 04:01
Microbiology
07/03/24 23:17 Nose MRSA Screen - Final
No Methicillin Resistant Staphylococcus aureus isolated.
[2024-07-06] MEDS: SPIRIVA RESPIMAT 2.5 MCG 2 PUFF INH (07:53)
[2024-07-06] MEDS: SYMBICORT 80/4.5 MCG INHALER 2 PUFF INH ×2 (07:54→20:06)
[2024-07-06] MEDS: NSS (PRESERVATIVE FREE) 10 ML IV ×2 (09:52→20:22)
[2024-07-06] MEDS: LIDOCAINE 4% PATCH 3 PATCH TOPICAL (09:52)
[2024-07-06] MEDS: DELTASONE 30 MG PO (09:53)
[2024-07-06] MEDS: ENTRESTO 24 MG/26 MG 1 TAB PO ×2 (09:54→20:21)
[2024-07-06] MEDS: FARXIGA 10 MG PO (09:54)
[2024-07-06] MEDS: LASIX 20 MG PO (09:54)
[2024-07-06] MEDS: THERAGRAN 1 TABLET PO (09:55)
[2024-07-06] MEDS: COREG 6.25 MG PO ×2 (09:55→20:21)
[2024-07-06] MEDS: ALDACTONE 12.5 MG PO (09:55)
[2024-07-06] MEDS: VITAMIN B1 100 MG PO (09:55)
[2024-07-06] MEDS: BACTRIM 400 MG/80 MG 1 TABLET PO (09:55)
[2024-07-06] MEDS: FOLVITE 1 MG PO (09:55)
[2024-07-06] MEDS: PROTONIX IV 40 MG IV ×2 (09:56→20:22)
[2024-07-06] MEDS: LOTRIMIN 1% CREAM 1 APPLIC TOPICAL ×2 (10:02→20:22)
--- NOTE | 2024-07-06 10:06 | CM ---
Addendum entered by Lizbeth Chen RN 07/06/24 16:40:
Notified by Dr Randall that patient and changed their mind and want patient to go to [facility] for rehab. Met with and told her that [facility] will not be able to take a referral until 07/08 and she could speak with the on Mon
about their final d/c wishes.
Spoke with Jose Molina third time; she will put hospice on hold.
Request to Dr Randall for PT/OT Evals.
Plan follow up after seen by PT/OT.
Plan follow up with patient/ on Mon re; SNF for rehab.
Addendum entered by Lizbeth Chen RN 07/06/24 16:34:
Spoke with [facility] 2nd time; she clarified that they never agreed to help arrange caregiver services.
Met with and provided caregiver list and explained that [facility] confirmed that they are unable to arrange caregivers for her, and she would have to arrange private pay caregivers. appeared to be irritated saying she was
misinformed.
Original Note:
Patient with Dx CVA. Room air. Receiving IV Ampicillin, Lidocaine Patch. Per nurses notes 07/05; Left sided flaccidity remains. Seen by Hospice.
Spoke with patient's Corie;
she is planning for patient to be discharged to home 07/08 with [facility].
She has cleared space in her dining room for hospital bed and is waiting for bed delivery tomorrow.
states that she has caregivers in place for M-F and needs additional caregiver for the weekends, which she will discuss with [facility].
Confirmed home address for ambulance transport home.
says that her is aware of the d/c plans to home with hospice.
prefers IV Abx be switched to PO for d/c---> Dr Randall made aware.
Spoke with Jose Molina (cell [phone]);
they do not have an available hospice nurse today to admit this patient.
Their hospice nurse will do onsite visit here tomorrow to eval the patient for acceptance- request to confirm with CM after completed.
She will arrange hospital bed and other DME for delivery tomorrow.
Tracy was made aware that is asking hospice to assist with arranging caregiver services for the weekends.
She is aware that patient is on IV Abx at present with plan to switch to PO at d/c, and receiving Lidocaine Patch.
Plan home 07/08 with [facility] and caregivers by ambulance.
[2024-07-06] MEDS: PACERONE 200 MG PO (10:12)
--- NOTE | 2024-07-06 12:44 | W.PN.HOSP.TC ---
Today's Communication/Plan
-
Discussed GOC in details, final decision - cont current mgmt with attempt for anticoagulation and further neuroSx evaluation
Pending Rehab - CM working
Monitor H&H meanwhile - stable
Assessment / Plan
Assessment / Plan
74yo M with PMhx of HTN, Afib, HLD, GERD, COPD, HFmrEF s/p ICD, chronic steroids, came with sudden onset of L hemiparesis, recent acute R MCA embolic stroke and R SUE embolic stroke, bacteremia with E.faecalis treated for for endocarditis, PVT,
PE, DVT brought from [facility] after Head CT done for continued headaches showed hemorrhagic transformation. Lovenox stopped. As per NeuroSx assessment - serial CT head for monitoring in [facility]. Received plt transfusion, DDAVP and protamine in ED. Also
developed worsening anemia. Pulmonology and hematology suggested IVC filter that was placed on 07/05/24. NeuroSx plan is to resume anticoagulation in one week from the start of hemorrhage on 07/10/24 -obtain a head CT one week following the start of
AC on 07/17/24 and follow up in neuroSx office. Patient and family would like to continue full medical management including Abx, so agreeable for rehab - CM to establish
A/P:
#hemorrhagic infarct in the right temporoparietal region
#2.7 cm diameter hematoma in the right temporal region
Serial neurochecks, IMU monitoring, hold antiplatelets and AC at least for 1 week, neuroSx followed
strict BP control
#Anemia, acute on chronic
Anemia of chronic disease, hemorrhage, cannot exclude PUD.
brown suarez stool as per chart on the day prior
bedbound and chronic prednisone are risk factors
High risk for invasive procedure - agreed with patient ad bedside, will hold off GI consult as H&H stable
PPI IV BID
serial H&H and transfuse as agreeable
LDH mildly elevated, but no signs of active hemolysis
FOBT still pending
#embolic CVA R MSA and embolic R SUE CVA
#R frontal meningioma 1.3cm
ASA (when possible), statin
Repeat MRI in 1 year, outpatient neuroSx consult
#Bacteremia, concern for endocarditis
cont Abx Ampicillin+Ceftriaxone
recommend outpatient EGD/Colonoscopy
#Possible pulmonary embolism within the visualized right main pulmonary artery
#Non-occlusive acute LLE DVT
#PVT thrombosis
AC on hold for at least a week
Hematology/Pulm advised IVC filter to be placed by [facility]. Explained to that it will not protect from worsening pulmonary embolism or de-alida pulmonary embolus as well as from PVT worsening
#Two focal splenic infarcts
Thromboembolic?
#Acute urinary retention
now on Marroquin
Urology as outpatient for cystoscopy
#Small left adrenal gland mass, stable, likely an adenoma.
Right adrenal gland mass,
was not present on CT scan in 2008
Continued follow-up is recommended.
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
#Afib, paroxysmal
#COPD not in exacerbation
#Sarcoidosis on chronic steroids
#Alcohol use d/o
cont home meds
THiamine/folate
#Mild thrombocytopenia, reactive
follow CBC
DVT ppx SCDs
Full code
I have spent at least 56min reviewing chart, test results, communication with consultants and direct patient care
Anticipated Discharge: > 48 hours
Subjective/Interval History
-
Date of Service: July 06, 2024
Objective Data
-
Labs:
Laboratory Results
07/06/24 07/06/24 07/06/24
04:01 04:01 04:01
WBC 6.9
Hgb Cancelled 7.6 L
Hct Cancelled 23.9 L
Plt Count 107 L
Sodium 134 L
Potassium 4.0
Chloride 103
Carbon Dioxide 24
BUN 15
Creatinine 0.9
Glucose 88
Calcium 7.7 L
Vital Signs:
Vital Signs
Temp Pulse Resp BP Pulse Ox
98.2 F 68 14 132/73 97
07/06/24 11:17 07/06/24 09:54 07/06/24 07:58 07/06/24 09:54 07/06/24 07:58
I&O
07/05/24 07/06/24 07/07/24
06:59 06:59 06:59
Intake Total 1341 / 1341 772 / 772
Output Total 1999 1650 / 1650
Balance -659 / -659 -878 / -878
Review of Systems
-
History Source: Patient and Family
All other systems: Reviewed and negative
Physical Exam
-
General: No Apparent Distress
HEENT: Normocephalic
Neuro: Awake, Alert, Oriented and AO x 3
Psych: Calm
[2024-07-06] MEDS: STERILE WATER FOR INJECTION 20 ML IV (14:03)
[2024-07-06] MEDS: ROCEPHIN 2000 MG IV (14:03)
[2024-07-06] MEDS: LIPITOR 80 MG PO (18:22)
--- NOTE | 2024-07-06 18:48 | PTCARENOTE ---
patient in bed. Awake and alert. VSS. Left arm +3 edema all covered with purple large bruise. Upper arm ski tear, oozing clear discharge. Area cleansed with NSS; Covered with Mepilex border. b/l UE elevated on a pillows. +2 edema to b/l LE,
elevated on a pillows. Rt upper arm DL PICC line flushed + blood return. Indwelling castillo draining bailey clear urine. Tolerating current diet. Pills whole w apple sauce. pt requires 2 people assist with ADLs. HOB elevated. call marquez within reach.
ABT prt order. at bedside.
[2024-07-06] MEDS: FLOMAX 0.4 MG PO (20:23)
[2024-07-06] MEDS: MELATONIN 5 MG PO (20:23)
[2024-07-07] VITALS (14 sets, daily range): BP systolic 108–134; BP diastolic 56–71; PULSE 64–65; O2SAT 98; BMI 30.7
[2024-07-07] MEDS: ROCEPHIN 2000 MG IV ×3 (00:02→23:03)
[2024-07-07] MEDS: STERILE WATER FOR INJECTION 20 ML IV ×3 (00:03→23:04)
[2024-07-07] MEDS: AMPICILLIN 108 MG IV ×7 (00:08→23:11)
[2024-07-07 05:45] LABS: % Basophils 0.1 % (0-2); % Eosinophils 0.1 % (0-6); % Immature Granulocytes 4.6 % (0-0.5); % Lymphocytes 8.1 % (20.5-51.1); % Monocytes 3.2 % (1.7-9.3); % Neutrophils 83.9 % (42.2-75.2); Absolute Immature Granulocytes 0.4 10^3/uL (0-0.05); Absolute Lymphocytes 0.7 10^3/uL (1.2-3.4); Absolute Monocytes 0.3 10^3/uL (0.1-0.6); Absolute Neutrophils 7.3 10^3/uL (1.4-6.5); Hematocrit 27.6 % (39.0-52.0); Hemoglobin 8.6 g/dL (13.0-18.0); Mean Corp Hgb Conc. 31.2 g/dL (33.0-37.0); Mean Corpuscular Hgb 30.2 pg (27.0-31.0); Mean Corpuscular Volume 96.8 fL (80.0-94.0); Mean Platelet Volume 11.4 fL (7.4-10.4); Nucleated Red Blood Cells % 0.5 % (-); Platelet Count 129 10^3/uL (130-400); Red Blood Cell Count 2.85 10^6/uL (4.70-6.10); Red Cell Dist. Width 19.2 % (11.5-14.5); White Blood Cell Count 8.7 10^3/uL (4.8-10.8)
[2024-07-07] MEDS: SPIRIVA RESPIMAT 2.5 MCG 2 PUFF INH (08:30)
[2024-07-07] MEDS: SYMBICORT 80/4.5 MCG INHALER 2 PUFF INH ×2 (08:30→18:23)
[2024-07-07] MEDS: LIDOCAINE 4% PATCH 3 PATCH TOPICAL (09:34)
[2024-07-07] MEDS: LASIX 20 MG PO (09:35)
[2024-07-07] MEDS: ALDACTONE 12.5 MG PO (09:35)
[2024-07-07] MEDS: FARXIGA 10 MG PO (09:35)
[2024-07-07] MEDS: ENTRESTO 24 MG/26 MG 1 TAB PO ×2 (09:35→20:13)
[2024-07-07] MEDS: THERAGRAN 1 TABLET PO (09:35)
[2024-07-07] MEDS: DELTASONE 30 MG PO (09:35)
[2024-07-07] MEDS: FOLVITE 1 MG PO (09:35)
[2024-07-07] MEDS: COREG 6.25 MG PO ×2 (09:36→20:13)
[2024-07-07] MEDS: BACTRIM 400 MG/80 MG 1 TABLET PO (09:36)
[2024-07-07] MEDS: NSS (PRESERVATIVE FREE) 10 ML IV ×2 (09:43→20:12)
[2024-07-07] MEDS: LOTRIMIN 1% CREAM 1 APPLIC TOPICAL ×2 (09:44→20:21)
[2024-07-07] MEDS: PROTONIX IV 40 MG IV ×2 (09:44→20:12)
[2024-07-07] MEDS: PACERONE 200 MG PO (09:45)
[2024-07-07] MEDS: VITAMIN B1 100 MG PO (09:46)
--- NOTE | 2024-07-07 11:27 | W.PN.HOSP.TC ---
Today's Communication/Plan
-
start DVT ppx
watch Hgb and for new neurological deficit
Assessment / Plan
Assessment / Plan
74yo M with PMhx of HTN, Afib, HLD, GERD, COPD, HFmrEF s/p ICD, chronic steroids, came with sudden onset of L hemiparesis, recent acute R MCA embolic stroke and R SUE embolic stroke, bacteremia with E.faecalis treated for for endocarditis, PVT,
PE, DVT brought from [facility] after Head CT done for continued headaches showed hemorrhagic transformation. Lovenox stopped. As per NeuroSx assessment - serial CT head for monitoring in . Received plt transfusion, DDAVP and protamine in ED. Also
developed worsening anemia. Pulmonology and hematology suggested IVC filter that was placed on 07/05/24. NeuroSx plan is to resume anticoagulation in one week from the start of hemorrhage on 07/10/24 -obtain a head CT one week following the start of
AC on 07/17/24 and follow up in neuroSx office. Patient and family would like to continue full medical management including Abx, so agreeable for rehab - CM to establish
A/P:
#hemorrhagic infarct in the right temporoparietal region with surrounding cerebral edema
#2.7 cm diameter hematoma in the right temporal region
Serial neurochecks, IMU monitoring, hold antiplatelets and AC at least for 1 week, neuroSx followed
strict BP control
NeuroSx approved DVT ppx on 07/05/23, however was on hold 2/2 new anemia. Hgb stable now so will start DVT ppx on heparin on 07/07/24 (agreed with Hematology) and monitor
#Anemia, acute on chronic
Anemia of chronic disease, hemorrhage, cannot exclude PUD.
brown suarez stool as per chart on the day prior
bedbound and chronic prednisone are risk factors
High risk for invasive procedure - agreed with patient ad bedside, will hold off GI consult as H&H stable
PPI IV BID
serial H&H and transfuse as agreeable
LDH mildly elevated, but no signs of active hemolysis
FOBT still pending
#embolic CVA R MSA and embolic R SUE CVA
#R frontal meningioma 1.3cm
ASA (when possible), statin
Repeat MRI in 1 year, outpatient neuroSx consult
#Acute bacterial endocarditis
cont Abx Ampicillin+Ceftriaxone until 08/25/24
recommend outpatient EGD/Colonoscopy
#Possible pulmonary embolism within the visualized right main pulmonary artery
#Non-occlusive acute LLE DVT
#PVT thrombosis
AC on hold for at least a week
Hematology/Pulm advised IVC filter to be placed by [facility]. Explained to that it will not protect from worsening pulmonary embolism or de-alida pulmonary embolus as well as from PVT worsening
#Two focal splenic infarcts
Thromboembolic?
#Acute urinary retention
now on Marroquin
Urology as outpatient for cystoscopy
#Small left adrenal gland mass, stable, likely an adenoma.
Right adrenal gland mass,
was not present on CT scan in 2008
Continued follow-up is recommended.
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
#Afib, paroxysmal
#COPD not in exacerbation
#Sarcoidosis on chronic steroids
#Alcohol use d/o
cont home meds
Thiamine/folate
#Mild thrombocytopenia, reactive
follow CBC
DVT ppx hep
Full code
I have spent at least 56min reviewing chart, test results, communication with consultants and direct patient care
Anticipated Discharge: > 48 hours
Subjective/Interval History
-
Date of Service: July 07, 2024
Objective Data
-
Labs:
Laboratory Results
07/07/24
05:00
WBC 8.7
Hgb 8.6 L
Hct 27.6 L
Plt Count 129 L D
Vital Signs:
Vital Signs
Temp Pulse Resp BP Pulse Ox
98.1 F 65 16 117/64 96
07/07/24 11:11 07/07/24 09:45 07/07/24 08:34 07/07/24 09:45 07/07/24 08:34
I&O
07/06/24 07/07/24 07/08/24
06:59 06:59 06:59
Intake Total 772 / 772 1386 / 1386
Output Total 1650 / 1650 3350 / 3350
Balance -878 / -878 -1963 / -1963
Review of Systems
-
History Source: Patient
All other systems: Reviewed and negative
Physical Exam
-
General: No Apparent Distress
HEENT: Moist Mucous Membranes
Respiratory: Clear to Auscultation
Cardiac: Regular Rhythm
Musculoskeletal: No Clubbing, No Cyanosis and No Edema
Neuro: Awake, Alert, Oriented and AO x 3
Psych: Calm
--- NOTE | 2024-07-07 12:44 | PTCARENOTE ---
Pt was rec'd this am from night RN at 07:15. Pt remains AOx3, [place], VSS on room air, meds and assessment as documented. Pt was incont mod suarez/orange BM, pericare back rub provided. Q2 turns maintained to prevent skin breakdown. Left side weakness
noted, LUE with +3 edema (not new) propped on pillow. at bedside assisting pt with cares/feeding. 100% breakfast tray consumed. Plan of care discussed with attending Dr. Randall, requested clarification of castillo order. Order received. Pt not
cleared for downgrade at this time, started back on heparin for ppx today per attending. Safe environment maintained.
--- NOTE | 2024-07-07 16:14 | PTCARENOTE ---
Pt remains stable, no changes to assessment. Pleasant and cooperative, MSAS scores 1 all day. See flowsheet. Plan discussed with CM and OLIVIER repalong with patient and his parents, he is now agreeable to inpatient tx as per his parent's
recommendation. [facility]IV[facility] rep Eleuterio assisting CM to set up admission. Parents at bedside. Safe environment maintained.
[2024-07-07] MEDS: LIPITOR 80 MG PO (16:40)
[2024-07-07] MEDS: HEPARIN 5000 UNITS SC (20:13)
--- NOTE | 2024-07-07 20:30 | PTCARENOTE ---
assumed care, pt AAOx3, L sided paralysis from Hx of CVA, Q4 neuro checks per worklist, Sinus c first degree and prolonged QT, weak pedals, +3 LUE, +1 anasarca, RA SpO2 95% diminished, BSx4 round obese soft non tender, thermistor castillo draining
yellow output, B/L UE ecchymosis, wounds documented per worklist, R DL PICC KVO 10ml, call marquez within reach, pt makes needs known, otherwise refer to documentation.
[2024-07-07] MEDS: FLOMAX 0.4 MG PO (23:03)
[2024-07-07] MEDS: MELATONIN 5 MG PO (23:03)
[2024-07-08] VITALS (9 sets, daily range): BP systolic 110–135; BP diastolic 62–68; BMI 30.3
[2024-07-08] MEDS: AMPICILLIN 108 MG IV ×4 (05:17→15:24)
[2024-07-08 06:30] LABS: Hematocrit 28.2 % (39.0-52.0); Hemoglobin 8.8 g/dL (13.0-18.0); Mean Corp Hgb Conc. 31.2 g/dL (33.0-37.0); Mean Corpuscular Hgb 30.7 pg (27.0-31.0); Mean Corpuscular Volume 98.3 fL (80.0-94.0); Mean Platelet Volume 11.4 fL (7.4-10.4); Platelet Count 124 10^3/uL (130-400); Red Blood Cell Count 2.87 10^6/uL (4.70-6.10); Red Cell Dist. Width 19.8 % (11.5-14.5); White Blood Cell Count 9.2 10^3/uL (4.8-10.8)
[2024-07-08] MEDS: SPIRIVA RESPIMAT 2.5 MCG 2 PUFF INH (07:29)
[2024-07-08] MEDS: SYMBICORT 80/4.5 MCG INHALER 2 PUFF INH (07:30)
[2024-07-08 07:37] LABS: % Basophils 0.1 % (0-2); % Eosinophils 0.2 % (0-6); % Immature Granulocytes 5.1 % (0-0.5); % Lymphocytes 9.7 % (20.5-51.1); % Monocytes 3.5 % (1.7-9.3); % Neutrophils 81.4 % (42.2-75.2); Absolute Immature Granulocytes 0.5 10^3/uL (0-0.05); Absolute Lymphocytes 0.9 10^3/uL (1.2-3.4); Absolute Monocytes 0.3 10^3/uL (0.1-0.6); Absolute Neutrophils 7.5 10^3/uL (1.4-6.5); Nucleated Red Blood Cells % 0.4 % (-)
[2024-07-08] MEDS: HEPARIN 5000 UNITS SC (08:29)
[2024-07-08] MEDS: NSS (PRESERVATIVE FREE) 10 ML IV (08:29)
[2024-07-08] MEDS: PROTONIX IV 40 MG IV (08:29)
[2024-07-08] MEDS: ENTRESTO 24 MG/26 MG 1 TAB PO (08:30)
[2024-07-08] MEDS: DELTASONE 30 MG PO (08:30)
[2024-07-08] MEDS: PACERONE 200 MG PO (08:30)
[2024-07-08] MEDS: LASIX 20 MG PO (08:30)
[2024-07-08] MEDS: FARXIGA 10 MG PO (08:30)
[2024-07-08] MEDS: BACTRIM 400 MG/80 MG 1 TABLET PO (08:30)
[2024-07-08] MEDS: ALDACTONE 12.5 MG PO (08:30)
[2024-07-08] MEDS: THERAGRAN 1 TABLET PO (08:30)
[2024-07-08] MEDS: VITAMIN B1 100 MG PO (08:30)
[2024-07-08] MEDS: COREG 6.25 MG PO (08:31)
[2024-07-08] MEDS: FOLVITE 1 MG PO (08:31)
[2024-07-08] MEDS: LIDOCAINE 4% PATCH 3 PATCH TOPICAL (08:32)
[2024-07-08] MEDS: LOTRIMIN 1% CREAM 1 APPLIC TOPICAL (08:33)
--- NOTE | 2024-07-08 09:38 | W.PN.ONC2 ---
Today's Communication / Plan
-
agree with DVT ppx until therapeutic AC can be safely resumed
per neurosurgery, anticoagulation can be resumed 07/10/24 (prior DOAC) -obtain a head CT one week following the start of AC on 07/17/24 and follow up in neurosurgery office for review
OP follow up with hematology/oncology will be arranged upon discharge
Impression
Impression
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
Multiple areas of thrombosis of indeterminate age including spleen, portal vein and pulmonary artery. Presumed septic embolism and also with Hx PE 1983, 1999. 06/18 US LLE Nonocclusive DVT. s/p IVC 07/05
APLS panel negative
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
Sarcoidosis, Immunosuppression on steroids and PJP prophylaxis
HFrEF
right adrenal gland mass. left adrenal adenoma
Anemia likely multifactorial with frequent labs since 06/11 when initially hospitalized, infection, abx, and now hemorrhagic conversion of CVA -no role for iron repletion with ferritin 235, no B12 or folate deficiency. Reticulocytosis with normal
LFTs and LDH 251 (nml 246) suggests blood loss rather than hemolysis
Plan
Plan
agree with neurosurgery DVT ppx while therapeutic Anticoagulation on hold for hemorrhagic conversion, defer to neurosurgery when anticoagulation can be resumed
Would not consider DOAC failure in setting of bacteremia and presumed septic emboli
Repeat CT ab/pelvis 3-6 months for continued right adrenal mass surveillance
abx per ID
f/u LUZ-2 mutation, consider PNH evaluation
f/u heme stool
at bedside provided with updates
Subjective/Objective
Subjective
no new complaints
denies overt bleeding
Vital Signs:
Vital Signs
Temp Pulse Resp BP Pulse Ox
97.6 F 64 12 117/64 95
07/08/24 07:56 07/08/24 08:31 07/08/24 07:37 07/08/24 08:31 07/08/24 07:37
Lab Results:
Laboratory Data
WBC 9.2 10^3/uL (4.8-10.8) 07/08/24 05:22
Hgb 8.8 g/dL (13.0-18.0) L 07/08/24 05:22
Plt Count 124 10^3/uL (130-400) L 07/08/24 05:22
PT 14.0 Sec (11.4-14.6) 07/03/24 13:30
INR 1.03 07/03/24 13:30
APTT 38.0 Sec (23.4-35.0) H 07/03/24 13:30
eGFR > 60.00 07/06/24 04:01
Physical Exam
Awake, alert, conversant
Head : normocephalic atraumatic
Lungs: unlabored
Cardiac: Regular rate
Abdomen: soft, nondistended nontender
Neuro left hemiplegia
--- NOTE | 2024-07-08 10:28 | PTCARENOTE ---
Received pt @ change of shift. NIH- 11; neuro checks completed per protocol. Assessment per charting- see flow sheet. Complete hygiene provided and repositioned per protocol. Plan to discharge to [facility]; awaiting auth/bed. Pt. to discharge w
castillo and PICC per Dr. Warner. Pt.'s @ bedside, updated on plan of care. Call marquez in reach.
--- NOTE | 2024-07-08 10:43 | W.PN.HOSP.TC ---
Today's Communication/Plan
-
medially stable for d/c
Assessment / Plan
Assessment / Plan
74yo M with PMhx of HTN, Afib, HLD, GERD, COPD, HFmrEF s/p ICD, chronic steroids, came with sudden onset of L hemiparesis, recent acute R MCA embolic stroke and R SUE embolic stroke, bacteremia with E.faecalis treated for for endocarditis, PVT,
PE, DVT brought from [facility] after Head CT done for continued headaches showed hemorrhagic transformation. Lovenox stopped. As per NeuroSx assessment - serial CT head for monitoring in . Received plt transfusion, DDAVP and protamine in ED. Also
developed worsening anemia. Pulmonology and hematology suggested IVC filter that was placed on 07/05/24. NeuroSx plan is to resume anticoagulation in one week from the start of hemorrhage on 07/10/24 -obtain a head CT one week following the start of
AC on 07/17/24 and follow up in neuroSx office. Patient and family would like to continue full medical management including Abx, so agreeable for rehab - CM to establish
A/P:
#hemorrhagic infarct in the right temporoparietal region with surrounding cerebral edema
#2.7 cm diameter hematoma in the right temporal region
Serial neurochecks, IMU monitoring, hold antiplatelets and AC at least for 1 week, neuroSx followed
strict BP control
NeuroSx approved DVT ppx on 07/05/23, however was on hold 2/2 new anemia. Hgb stable now so will start DVT ppx on heparin on 07/07/24 (agreed with Hematology) and monitor
#Anemia, acute on chronic
Anemia of chronic disease, hemorrhage, cannot exclude PUD.
brown suarez stool as per chart on the day prior
bedbound and chronic prednisone are risk factors
High risk for invasive procedure - agreed with patient ad bedside, will hold off GI consult as H&H stable
PPI IV BID
serial H&H and transfuse as agreeable
LDH mildly elevated, but no signs of active hemolysis
FOBT still pending
#embolic CVA R MSA and embolic R SUE CVA
#R frontal meningioma 1.3cm
ASA (when possible), statin
Repeat MRI in 1 year, outpatient neuroSx consult
#Acute bacterial endocarditis
cont Abx Ampicillin+Ceftriaxone until 08/25/24
recommend outpatient EGD/Colonoscopy
#Possible pulmonary embolism within the visualized right main pulmonary artery
#Non-occlusive acute LLE DVT
#PVT thrombosis
AC on hold for at least a week
Hematology/Pulm advised IVC filter to be placed by [facility]. Explained to that it will not protect from worsening pulmonary embolism or de-alida pulmonary embolus as well as from PVT worsening
#Two focal splenic infarcts
Thromboembolic?
#Acute urinary retention
/ poor ambulatory status
TOV when ambulatory improving
now on [place]
Urology as outpatient for cystoscopy
#Small left adrenal gland mass, stable, likely an adenoma.
Right adrenal gland mass,
was not present on CT scan in 2008
Continued follow-up is recommended.
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
ADMIN PROG COORD
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
#Afib, paroxysmal
#COPD not in exacerbation
#Sarcoidosis on chronic steroids
#Alcohol use d/o
cont home meds
Thiamine/folate
#Mild thrombocytopenia, reactive
follow CBC
DVT ppx hep
Full code
I have spent at least 56min reviewing chart, test results, communication with consultants and direct patient care
Anticipated Discharge: Within 24 hours
Subjective/Interval History
-
Date of Service: July 08, 2024
Objective Data
-
Labs:
Laboratory Results
07/08/24
05:22
WBC 9.2
Hgb 8.8 L
Hct 28.2 L
Plt Count 124 L
Vital Signs:
Vital Signs
Temp Pulse Resp BP Pulse Ox
97.6 F 64 12 117/64 96
07/08/24 07:56 07/08/24 08:31 07/08/24 07:37 07/08/24 08:31 07/08/24 10:08
I&O
07/07/24 07/08/24 07/09/24
06:59 06:59 06:59
Intake Total 1386 / 1386 1260 / 1260
Output Total 3350 / 3350 2400 / 2400
Balance -1964 / -1964 -1140 / -1140
Review of Systems
-
History Source: Patient
All other systems: Reviewed and negative
Physical Exam
-
General: No Apparent Distress
HEENT: Normocephalic
Neuro: Awake, Alert, Oriented and AO x 3
Psych: Calm
--- NOTE | 2024-07-08 10:51 | W.DCSUMMARY ---
Discharge Summary
Discharge Data
Date of Admission: 07/03/24
Date of Discharge: 07/08/24
-
Pending Results: No
Hospital Course
74yo M with PMhx of HTN, Afib, HLD, GERD, COPD, HFmrEF s/p ICD, chronic steroids, came with sudden onset of L hemiparesis, recent acute R MCA embolic stroke and R SUE embolic stroke, bacteremia with E.faecalis treated for for endocarditis, PVT,
PE, DVT brought from [place] [facility] after Head CT done for continued headaches showed hemorrhagic transformation. Lovenox stopped. As per NeuroSx assessment - serial CT head for monitoring in . Received plt transfusion, DDAVP and protamine in ED. Also
developed worsening anemia. Pulmonology and hematology suggested IVC filter that was placed on 07/05/24. NeuroSx plan is to resume anticoagulation in one week from the start of hemorrhage on 07/10/24 -obtain a head CT one week following the start of
AC on 07/17/24 and follow up in neuroSx office. Patient and family would like to continue full medical management including Abx, so agreeable for rehab. also will plan on possible palliative approach later. She verbalized understanding of all
instructions
I have spent at least 56min reviewing chart, test results, communication with consultants and direct patient care
Patient was managed for:
#hemorrhagic infarct in the right temporoparietal region with surrounding cerebral edema
#2.7 cm diameter hematoma in the right temporal region
#Anemia, acute on chronic
#embolic CVA R MSA and embolic R SUE CVA
#R frontal meningioma 1.3cm
#Acute bacterial endocarditis
#Possible pulmonary embolism within the visualized right main pulmonary artery
#Non-occlusive acute LLE DVT
#PVT thrombosis
#Two focal splenic infarcts
#Acute urinary retention
#Small left adrenal gland mass, stable, likely an adenoma.
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
#Afib, paroxysmal
#COPD not in exacerbation
#Sarcoidosis on chronic steroids
#Alcohol use d/o
#Mild thrombocytopenia, reactive
Discharge Plan
-
Patient Disposition: Custodial/SNF
Discharge Diagnosis/Procedures: ICH
Diet: Low Cholesterol
Activity: As tolerated
Driving Restrictions: As prior to admission
Blood Work: CBC weekly
Activity Restrictions/Additional Instructions:
plan is to resume anticoagulation in one week from the start of hemorrhage on 07/10/24 with Lovenox 1mg/kg q12h, then obtain a head CT one week following the start of AC on 07/17/24 and follow up in neuroSx office
Continue Ampicillin and Ceftriaxone till 07/29/24, then start oral amoxicillin for suppression indefinitely
Referrals:
Pietro Hassan DO [Active] - (call office to schedule follow up in 6 weeks)
Red Moscoso MD [Active] - in one to two weeks (For urinary retention)
Jami Horta MD [Active] - (follow up with Dr. Horta with new head CT if anticoagulation is restarted 07/17)
Katherine Rod DO [Active] - in four to six weeks (eval for EGD/Colonoscopy)
Doyle Avila DO [Family Provider] - in one to two months (schedule repeated CT adrenals due to persistent mass)
Prescriptions:
Continued
sulfamethoxazole-trimethoprim [Bactrim] 400-80 mg Tablet
1 tab PO DAILY
amiodarone [Pacerone] 200 mg tablet
200 mg PO DAILY
therapeutic multivitamin Tablet
1 tab PO DAILY
spironolactone 25 mg Tablet
12.5 mg PO DAILY
sacubitril-valsartan [Entresto] 24-26 mg Tablet
1 tab PO BID
acetaminophen [Tylenol] 325 mg Tablet
650 mg PO Q4HPRN PRN (Reason: MILD PAIN)
prednisone 20 mg tablet
30 mg PO DAILY
carvedilol 6.25 MG tablet
6.25 mg PO BID
furosemide 20 mg tablet
20 mg PO DAILY
Spiriva Respimat 2.5 mcg/actuation mist
2 puff inhalation R DAILY
Ampicillin 2000 MG
0.9% Sodium Chloride 100 ml [Nss] 100 ML
108 mls/hr IV Q4H
Ordered By: Georgi Randall MD
Last Taken: 07/03/24 08:00
atorvastatin 80 mg Tablet
80 mg PO QPM Qty: 30 0RF
aspirin 81 mg Tablet,Chewable
81 mg PO DAILY Qty: 30 0RF
budesonide-formoterol [Symbicort] 80-4.5 mcg/actuation Hfa Aerosol Inhaler
2 puff inhalation R BID Qty: 10 0RF
lidocaine 4 % Adhesive Patch,Medicated
3 patch TOPICAL DAILY
folic acid 1 mg Tablet
1 mg PO DAILY
clotrimazole 1 % Cream
1 applic TOPICAL BID
methyl salicylate-menthol 15-10 % Cream
1 applic TOPICAL QIDPRN PRN (Reason: LOW BACK PAIN)
Refresh Optive 0.5-0.9 % Drops
1 drp BOTH EYES Q6HPRN PRN (Reason: DRY EYES)
dapagliflozin propanediol [Farxiga] 10 mg Tablet
10 mg PO DAILY
thiamine HCl (vitamin B1) 100 mg tablet
100 mg PO DAILY
tamsulosin 0.4 mg capsule
0.4 mg PO HS
Changed
pantoprazole 40 mg tablet,delayed release (DR/EC)
40 mg PO BID Qty: 0 0RF
ceftriaxone 2 gram recon soln
2,000 mg IV BID Qty: 25 0RF
Discontinued
enoxaparin 100 mg/mL Syringe
90 mg SC Q12H Qty: 10 0RF
Discharge Orders:
Discharge Patient (As Directed); Ordered 07/08/24
Ordered By: Georgi Randall
Discharge Date and Time
Print Language: CHINESE
[2024-07-08] MEDS: STERILE WATER FOR INJECTION 20 ML IV (12:09)
[2024-07-08] MEDS: ROCEPHIN 2000 MG IV (12:09)
--- NOTE | 2024-07-08 13:02 | CM ---
Addendum entered by Bogdan Whatley 07/08/24 14:27:
Per [employer] watch caser Heidy, [facility] SNF is out of network and pt has out of network benefits.
Pt is approved for SNF level of care at [facility] for 5 initial days starting today 07/08/24 till 07/12/23 with LCD and NRD 07/12/24. Auth: [id number]. For additional days: phone [phone]
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 [facility] . Ambulance auth: [id number]
Both pt, his spouse, [facility] director of vendor management, RN are aware of discharge time.
[facility] nursing report: [phone]
Discharge instructions fax: [phone]
D/C plan: [facility] today.
Original Note:
CM follwoing re: discharge planning.
Reviwed pt's chart, met with pt and pt's spouse at bedside.
Both pt and his spouse stated they changed their mind regarding hospice care and they preferred SNF level of care and they requested [facility].
According to pt is medically stable to be discharged today. Both pt and his spouse are aware, expressed their agreement. IMM reviewed, placed on chart, pt has a copy.
CM spoke to [facility] director of vendor management and she confirmed they do have a bed available and pt is accepted for admission to [facility] today.
MARION initiated an auth with [employer] for SNF level of care at [facility] for today, spoke to workforce services representative Heidy, and per Heidy they do have challenges to locate [facility] as a preferred provider and anyway clinical provided and based on
clinical, Heidy provided with pending auth number: [id number]. Per Heidy as soon as [employer] confirms [facility] as a preferred provider she will call me with a full auth number.
An auth fot Acute ambulance BLS requested.
[facility] director of vendor management is aware.
D/C plan: [facility] when a full authorization obtained.
--- NOTE | 2024-07-08 17:52 | PTCARENOTE ---
Discharge orders received. Report given to nurse @ [facility]. Acute Care transport team to bedside; pt. max assisted to transport stretcher and pt. discharged to [facility] w belongings and present. [facility] of care given to transport.
No further needs from this RN.
== END 2024-07-08 17:42 | DRG 64 ==
LOC: ICU 19:15
PROVIDERS: Nurse Practitioner Family; Radiology Vascular & Interventional Radiology; ADMITTING PHYSICIAN Internal Medicine; ATTENDING PHYSICIAN Internal Medicine; CONSULT PHYSICIAN Internal Medicine; CONSULT PHYSICIAN Internal Medicine Hematology & Oncology; EMERGENCY PHYSICIAN Emergency Medicine; FAMILY PHYSICIAN Internal Medicine; OTHER PHYSICIAN Neurological Surgery
PROC: 06H03DZ Insertion of Intraluminal Device into Inferior Vena Cava, Percutaneous Approach (ICD-10-PCS; 2024-07-05)
DX: I61.9 Nontraumatic intracerebral hemorrhage, unspecified (principal); G93.6 Cerebral edema; I26.99 Other pulmonary embolism without acute cor pulmonale; I81 Portal vein thrombosis; I33.9 Acute and subacute endocarditis, unspecified; I50.22 Chronic systolic (congestive) heart failure; I69.354 Hemiplegia and hemiparesis following cerebral infarction affecting left non-dominant side; D84.9 Immunodeficiency, unspecified; I11.0 Hypertensive heart disease with heart failure; I48.0 Paroxysmal atrial fibrillation; D73.5 Infarction of spleen; E66.9 Obesity, unspecified; D86.9 Sarcoidosis, unspecified; D69.6 Thrombocytopenia, unspecified; L89.152 Pressure ulcer of sacral region, stage 2; Z68.30 Body mass index [BMI] 30.0-30.9, adult
CPT/HCPCS: 36430; 37191; 51701; 51798; 70450; 71045; 80048; 80053; 81270; 82607; 82728; 82746; 83540; 83550; 83615; 85014; 85018; 85025; 85027; 85045; 85610; 85730; 86850; 86900; 86901; 87070; 92523; 92526; 92610; 93005; 94640; 96361; 96374; 96375; 96376; 97163; 97167; 99291; C1769; C1880; J2597; P9073

== ENCOUNTER → 2024-07-15 12:05 | Outpatient (REF) | payer OTHER, SELFPAY ==
[2024-07-15 12:34] LABS: % Basophils 0.2 % (0-2); % Eosinophils 0.2 % (0-6); % Immature Granulocytes 3.5 % (0-0.5); % Lymphocytes 3.4 % (20.5-51.1); % Neutrophils 90.7 % (42.2-75.2); Absolute Immature Granulocytes 0.2 10^3/uL (0-0.05); Absolute Lymphocytes 0.2 10^3/uL (1.2-3.4); Absolute Monocytes 0.1 10^3/uL (0.1-0.6); Hematocrit 29.8 % (39.0-52.0); Hemoglobin 9.1 g/dL (13.0-18.0); Mean Corp Hgb Conc. 30.5 g/dL (33.0-37.0); Mean Corpuscular Hgb 31.8 pg (27.0-31.0); Mean Corpuscular Volume 104.2 fL (80.0-94.0); Mean Platelet Volume 11.8 fL (7.4-10.4); Nucleated Red Blood Cells % 0.5 % (-); Platelet Count 103 10^3/uL (130-400); Red Blood Cell Count 2.86 10^6/uL (4.70-6.10); Red Cell Dist. Width 20.3 % (11.5-14.5); White Blood Cell Count 6.6 10^3/uL (4.8-10.8)
[2024-07-15 12:48] LABS: ALT (SGPT) 23 U/L (0-50); AST (SGOT) 25 U/L (17-59); Albumin 2.9 g/dl (3.5-5.0); Alkaline Phosphatase 80 U/L (38-126); Blood Urea Nitrogen 16 mg/dl (9-20); Calcium 7.4 mg/dl (8.4-10.2); Carbon Dioxide 21 mmol/L (22-30); Chloride 108 mmol/L (98-107); Glucose 87 mg/dl (70-99); Potassium 3.4 mmol/L (3.5-5.1); Sodium 137 mmol/L (135-145); Total Bilirubin 0.4 mg/dl (0.2-1.3); Total Protein 4.9 g/dl (6.3-8.2); eGFR > 60.00
[2024-07-15 12:52] LABS: Erythrocyte Sed Rate 7 mm/hour (0-20)
== END ==
LOC: OLABP 12:05
PROVIDERS: ATTENDING PHYSICIAN Family Medicine
DX: I62.9 Nontraumatic intracranial hemorrhage, unspecified (principal); I10 Essential (primary) hypertension; G93.6 Cerebral edema; I33.9 Acute and subacute endocarditis, unspecified; I11.0 Hypertensive heart disease with heart failure; D69.6 Thrombocytopenia, unspecified; D64.9 Anemia, unspecified; D73.5 Infarction of spleen; I05.9 Rheumatic mitral valve disease, unspecified; I82.402 Acute embolism and thrombosis of unspecified deep veins of left lower extremity; I69.954 Hemiplegia and hemiparesis following unspecified cerebrovascular disease affecting left non-dominant side; I50.20 Unspecified systolic (congestive) heart failure; I42.8 Other cardiomyopathies; I48.0 Paroxysmal atrial fibrillation
CPT/HCPCS: 36415; 80053; 85025; 85652; 86140

== ENCOUNTER → 2024-07-15 15:42 | Outpatient (REF) | payer OTHER, SELFPAY | LOC: OLABP 15:42 | PROVIDERS: ATTENDING PHYSICIAN Family Medicine | DX: I10 Essential (primary) hypertension (principal); I62.9 Nontraumatic intracranial hemorrhage, unspecified; G93.6 Cerebral edema; I33.9 Acute and subacute endocarditis, unspecified; I11.0 Hypertensive heart disease with heart failure; D69.6 Thrombocytopenia, unspecified; D73.5 Infarction of spleen; D84.9 Immunodeficiency, unspecified; I05.9 Rheumatic mitral valve disease, unspecified; I82.402 Acute embolism and thrombosis of unspecified deep veins of left lower extremity; I69.954 Hemiplegia and hemiparesis following unspecified cerebrovascular disease affecting left non-dominant side; I50.20 Unspecified systolic (congestive) heart failure; I42.8 Other cardiomyopathies; I48.0 Paroxysmal atrial fibrillation | CPT/HCPCS: 87324; 87449 ==

== ENCOUNTER → 2024-07-17 09:57 | Outpatient (REF) | payer OTHER, SELFPAY | LOC: HWRAD 09:57 | PROVIDERS: ATTENDING PHYSICIAN Physician Assistant Medical; FAMILY PHYSICIAN Internal Medicine | DX: S06.5XAA Traumatic subdural hemorrhage with loss of consciousness status unknown, initial encounter (principal) | CPT/HCPCS: 70450 ==

== ENCOUNTER → 2024-07-17 10:40 | Outpatient (REF) | payer OTHER, SELFPAY ==
[2024-07-17 12:44] LABS: Blood Urea Nitrogen 12 mg/dl (9-20); Calcium 6.8 mg/dl (8.4-10.2); Carbon Dioxide 21 mmol/L (22-30); Chloride 108 mmol/L (98-107); Glucose 92 mg/dl (70-99); Potassium 3.3 mmol/L (3.5-5.1); Sodium 137 mmol/L (135-145); eGFR > 60.00
== END ==
LOC: OLABP 10:40
PROVIDERS: ATTENDING PHYSICIAN Family Medicine
DX: I70.0 Atherosclerosis of aorta (principal); I62.9 Nontraumatic intracranial hemorrhage, unspecified; G93.6 Cerebral edema; I33.9 Acute and subacute endocarditis, unspecified; I11.0 Hypertensive heart disease with heart failure; D69.6 Thrombocytopenia, unspecified; D73.5 Infarction of spleen; I82.402 Acute embolism and thrombosis of unspecified deep veins of left lower extremity; I69.954 Hemiplegia and hemiparesis following unspecified cerebrovascular disease affecting left non-dominant side; I50.20 Unspecified systolic (congestive) heart failure; I48.0 Paroxysmal atrial fibrillation; D84.9 Immunodeficiency, unspecified; I05.9 Rheumatic mitral valve disease, unspecified
CPT/HCPCS: 36415; 80048

== ENCOUNTER → 2024-07-18 11:11 | Outpatient (REF) | payer OTHER, SELFPAY ==
[2024-07-18 12:58] LABS: ALT (SGPT) 33 U/L (0-50); AST (SGOT) 25 U/L (17-59); Albumin 2.8 g/dl (3.5-5.0); Alkaline Phosphatase 88 U/L (38-126); Blood Urea Nitrogen 12 mg/dl (9-20); Calcium 6.9 mg/dl (8.4-10.2); Carbon Dioxide 22 mmol/L (22-30); Chloride 105 mmol/L (98-107); Glucose 86 mg/dl (70-99); Potassium 3.5 mmol/L (3.5-5.1); Sodium 137 mmol/L (135-145); Total Bilirubin 0.4 mg/dl (0.2-1.3); Total Protein 4.7 g/dl (6.3-8.2); eGFR > 60.00
[2024-07-18 13:07] LABS: Free T4 1.39 ng/dl (0.78-2.19)
[2024-07-20 09:38] LABS: Intact PTH 81.5 pg/ml (13.6-85.8)
== END ==
LOC: OLABP 11:11
PROVIDERS: ATTENDING PHYSICIAN Family Medicine
DX: I70.0 Atherosclerosis of aorta (principal); I62.9 Nontraumatic intracranial hemorrhage, unspecified; G93.6 Cerebral edema; I33.9 Acute and subacute endocarditis, unspecified; I11.0 Hypertensive heart disease with heart failure; D69.6 Thrombocytopenia, unspecified; D73.5 Infarction of spleen; I82.402 Acute embolism and thrombosis of unspecified deep veins of left lower extremity; I69.954 Hemiplegia and hemiparesis following unspecified cerebrovascular disease affecting left non-dominant side; I50.20 Unspecified systolic (congestive) heart failure; I42.8 Other cardiomyopathies; I48.0 Paroxysmal atrial fibrillation; D84.9 Immunodeficiency, unspecified; I05.9 Rheumatic mitral valve disease, unspecified
CPT/HCPCS: 36415; 80053; 83735; 83970; 84439

== ENCOUNTER → 2024-07-22 10:06 | Outpatient (REF) | payer OTHER, SELFPAY ==
[2024-07-22 12:02] LABS: Hemoglobin 7.9 g/dL (13.0-18.0); Mean Corp Hgb Conc. 30.4 g/dL (33.0-37.0); Mean Corpuscular Hgb 31.5 pg (27.0-31.0); Mean Corpuscular Volume 103.6 fL (80.0-94.0); Mean Platelet Volume 11.5 fL (7.4-10.4); Platelet Count 144 10^3/uL (130-400); Red Blood Cell Count 2.51 10^6/uL (4.70-6.10); Red Cell Dist. Width 19.8 % (11.5-14.5); White Blood Cell Count 7.6 10^3/uL (4.8-10.8)
[2024-07-22 12:16] LABS: Erythrocyte Sed Rate 10 mm/hour (0-20)
[2024-07-22 13:06] LABS: % Basophils 0.1 % (0-2); % Eosinophils 0.3 % (0-6); % Immature Granulocytes 7.2 % (0-0.5); % Lymphocytes 9.9 % (20.5-51.1); % Monocytes 3.7 % (1.7-9.3); % Neutrophils 78.8 % (42.2-75.2); Absolute Immature Granulocytes 0.5 10^3/uL (0-0.05); Absolute Lymphocytes 0.8 10^3/uL (1.2-3.4); Absolute Monocytes 0.3 10^3/uL (0.1-0.6); Nucleated Red Blood Cells % 1.2 % (-)
[2024-07-22 13:51] LABS: ALT (SGPT) 24 U/L (0-50); AST (SGOT) 19 U/L (17-59); Albumin 2.7 g/dl (3.5-5.0); Alkaline Phosphatase 72 U/L (38-126); Blood Urea Nitrogen 15 mg/dl (9-20); Calcium 7.3 mg/dl (8.4-10.2); Carbon Dioxide 25 mmol/L (22-30); Chloride 107 mmol/L (98-107); Glucose 80 mg/dl (70-99); Potassium 3.5 mmol/L (3.5-5.1); Sodium 140 mmol/L (135-145); Total Bilirubin 0.4 mg/dl (0.2-1.3); Total Protein 4.6 g/dl (6.3-8.2); eGFR > 60.00
[2024-07-22 13:55] LABS: C-Reactive Protein < 5.00 mg/L (0.0-10.00)
[2024-07-22 14:11] LABS: Vitamin D, 25-OH*** 14.4 ng/mL (30-80)
== END ==
LOC: OLABP 10:06
PROVIDERS: ATTENDING PHYSICIAN Family Medicine
DX: I62.9 Nontraumatic intracranial hemorrhage, unspecified (principal); G93.6 Cerebral edema; I33.9 Acute and subacute endocarditis, unspecified; I11.0 Hypertensive heart disease with heart failure; D69.6 Thrombocytopenia, unspecified; D73.5 Infarction of spleen; I69.954 Hemiplegia and hemiparesis following unspecified cerebrovascular disease affecting left non-dominant side
CPT/HCPCS: 36415; 80053; 82306; 85025; 85652; 86140